=== PATIENT | male | born 1965 | race Caucasian/White ===

== ENCOUNTER 2017-01-06 10:21 | Inpatient (IN) | payer OTHER ==
[2017-01-06] MEDS ORDERED: SODIUM CHLORIDE 0.9% 250 ML IV STA (10:43)
[2017-01-06] MEDS ORDERED: ONDANSETRON 4 MG/2 ML VIAL IVP STA (10:43)
--- NOTE | 2017-01-06 10:55 | ED ---
General Adult HPI - General Chief complaint: Recheck/Abnormal Lab/Rx Stated complaint: low energy Time Seen by Provider: 01/06/17 10:31 Source: patient Mode of arrival: ambulatory Limitations: no limitations - History of Present Illness Initial comments: 51-year-old presents not feeling well for the last couple days and states his arms feel heavy note chest pain and feels some nausea. He states that he has a history of hypertension and is on clonidine patch number to, Lotrel and was placed on Dyazide since taking the Dyazide he has not felt well was discontinued couple days ago he continues to feel weak. No discomfort in his arms no shortness of breath when he walks. No history of diabetes asthma seizures or heart disease has been treated for difficult hypertension for years - Related Data Home Medications Medication Instructions Recorded Confirmed Aspirin EC [Ecotrin Low Dose] 81 mg PO HS 01/06/17 01/06/17 Citalopram Hydrobromide [CeleXA] 40 mg PO HS 01/06/17 01/06/17 EPINEPHrine [Epipen 2-Cosmo] 0.3 mg IM ONCE PRN 01/06/17 01/06/17 Multivitamins, Thera [Multivitamin 1 tab PO HS 01/06/17 01/06/17 (formulary)] Omeprazole 40 mg PO HS 01/06/17 01/06/17 amLODIPine BESYLATE/BENAZEPRIL 1 cap PO HS 01/06/17 01/06/17 [Lotrel 10-20 mg Capsule] cloNIDine 0.2 MG/24HR PATCH 1 patch TRANSDERM TU 01/06/17 01/06/17 [Catapres-TTS] tiZANidine HCL [Zanaflex] 4 mg PO Q8HR PRN 01/06/17 01/06/17 Allergies Allergy/AdvReac Type Severity Reaction Status Date / Time bee venom protein (honey bee) Allergy Anaphylaxis Verified 01/06/17 11:28 codeine Allergy Nausea & Verified 01/06/17 11:28 Vomiting Sulfa (Sulfonamide Allergy Swelling Verified 01/06/17 11:28 Antibiotics) Review of Systems ROS Statement: Those systems with pertinent positive or pertinent negative responses have been documented in the HPI. ROS Other: All systems not noted in ROS Statement are negative. Constitutional: Denies: fever, chills, weakness Eyes: Denies: eye pain, eye discharge ENT: Denies: ear pain, throat pain Respiratory: Denies: cough, dyspnea Cardiovascular: Denies: chest pain Endocrine: Reports: fatigue Gastrointestinal: Reports: nausea. Denies: abdominal pain, vomiting, diarrhea Genitourinary: Denies: urgency, dysuria, frequency Musculoskeletal: Denies: back pain Skin: Denies: rash Neurological: Denies: headache Psychiatric: Denies: anxiety, depression Hematological/Lymphatic: Denies: easy bleeding, easy bruising Past Medical History Past Medical History: Hypertension Additional Past Medical History / Comment(s): seasonal allergies History of Any Multi-Drug Resistant Organisms: None Reported Past Surgical History: Hernia Repair Past Psychological History: No Psychological Hx Reported Smoking Status: Former smoker Past Alcohol Use History: Occasional Past Drug Use History: None Reported General Exam Limitations: no limitations General appearance: alert, in no apparent distress Head exam: Present: atraumatic Eye exam: Present: PERRL, EOMI ENT exam: Present: normal oropharynx, mucous membranes moist, TM's normal bilaterally Neck exam: Present: normal inspection Respiratory exam: Present: normal lung sounds bilaterally Cardiovascular Exam: Present: regular rate, normal heart sounds. Absent: systolic murmur, diastolic murmur GI/Abdominal exam: Present: soft. Absent: tenderness, normal bowel sounds Extremities exam: Present: normal inspection Neurological exam: Present: alert, CN II-XII intact Psychiatric exam: Present: normal affect, normal mood Skin exam: Present: warm, dry Course Vital Signs 01/06/17 01/06/17 01/06/17 10:23 12:04 13:00 Temperature 97.8 F Pulse Rate 108 H 95 96 Respiratory 20 18 18 Rate Blood Pressure 132/84 123/68 123/75 O2 Sat by Pulse 98 96 97 Oximetry 01/06/17 14:00 Temperature Pulse Rate 94 Respiratory 18 Rate Blood Pressure 132/77 O2 Sat by Pulse 97 Oximetry Medical Decision Making - Medical Decision Making Elevated liver enzymes showed appears to be obstructive ultrasound shows no stones patient's feeling rather poor poorly has some edema him after discussing with the attending will admit consult gastro-as well as CT ordered, slow hydration. - Lab Data Result diagrams: 01/06/17 11:15 01/06/17 11:15 Lab Results 01/06/17 01/06/17 01/06/17 Range/Units 11:15 11:15 11:15 WBC 9.2 (3.8-10.6) k/uL RBC 5.07 (4.30-5.90) m/uL Hgb 14.9 (13.0-17.5) gm/dL Hct 43.0 (39.0-53.0) % MCV 84.8 (80.0-100.0) fL MCH 29.4 (25.0-35.0) pg MCHC 34.7 (31.0-37.0) g/dL RDW 16.3 H (11.5-15.5) % Plt Count 152 (150-450) k/uL Neutrophils % 77 % Lymphocytes % 16 % Monocytes % 5 % Eosinophils % 0 % Basophils % 0 % Neutrophils # 7.1 (1.3-7.7) k/uL Lymphocytes # 1.5 (1.0-4.8) k/uL Monocytes # 0.5 (0-1.0) k/uL Eosinophils # 0.0 (0-0.7) k/uL Basophils # 0.0 (0-0.2) k/uL Anisocytosis Slight Sodium 136 L (137-145) mmol/L Potassium 3.9 (3.5-5.1) mmol/L Chloride 100 (98-107) mmol/L Carbon Dioxide 20 L (22-30) mmol/L Anion Gap 16 mmol/L BUN 16 (9-20) mg/dL Creatinine 0.96 (0.66-1.25) mg/dL Est GFR (MDRD) Af Amer >60 (>60 ml/min/1.73 sqM) Est GFR (MDRD) Non-Af >60 (>60 ml/min/1.73 sqM) Glucose 134 H (74-99) mg/dL Calcium 8.1 L (8.4-10.2) mg/dL Total Bilirubin 3.4 H (0.2-1.3) mg/dL AST 434 H (17-59) U/L ALT 399 H (21-72) U/L Alkaline Phosphatase 253 H (38-126) U/L Total Creatine Kinase 136 (55-170) U/L CK-MB (CK-2) 2.3 (0.0-2.4) ng/mL CK-MB (CK-2) Rel Index 1.7 Troponin I 0.017 (0.000-0.034) ng/mL NT-Pro-B Natriuret Pep pg/mL Total Protein 6.7 (6.3-8.2) g/dL Albumin 3.5 (3.5-5.0) g/dL Urine Color Urine Appearance (Clear) Urine pH (5.0-8.0) Ur Specific [place] (1.001-1.035) Urine Protein (Negative) Urine Glucose (UA) (Negative) Urine Ketones (Negative) Urine Blood (Negative) Urine Nitrite (Negative) Urine Bilirubin (Negative) Urine Urobilinogen (<2.0) mg/dL Ur Leukocyte Esterase (Negative) Urine RBC (0-5) /hpf Urine WBC (0-5) /hpf Cellular Casts (0) /lpf Hyaline Casts (0-2) /lpf Urine Mucus (None) /hpf 01/06/17 01/06/17 Range/Units 11:15 11:45 WBC (3.8-10.6) k/uL RBC (4.30-5.90) m/uL Hgb (13.0-17.5) gm/dL Hct (39.0-53.0) % MCV (80.0-100.0) fL MCH (25.0-35.0) pg MCHC (31.0-37.0) g/dL RDW (11.5-15.5) % Plt Count (150-450) k/uL Neutrophils % % Lymphocytes % % Monocytes % % Eosinophils % % Basophils % % Neutrophils # (1.3-7.7) k/uL Lymphocytes # (1.0-4.8) k/uL Monocytes # (0-1.0) k/uL Eosinophils # (0-0.7) k/uL Basophils # (0-0.2) k/uL Anisocytosis Sodium (137-145) mmol/L Potassium (3.5-5.1) mmol/L Chloride (98-107) mmol/L Carbon Dioxide (22-30) mmol/L Anion Gap mmol/L BUN (9-20) mg/dL Creatinine (0.66-1.25) mg/dL Est GFR (MDRD) Af Amer (>60 ml/min/1.73 sqM) Est GFR (MDRD) Non-Af (>60 ml/min/1.73 sqM) Glucose (74-99) mg/dL Calcium (8.4-10.2) mg/dL Total Bilirubin (0.2-1.3) mg/dL AST (17-59) U/L ALT (21-72) U/L Alkaline Phosphatase (38-126) U/L Total Creatine Kinase (55-170) U/L CK-MB (CK-2) (0.0-2.4) ng/mL CK-MB (CK-2) Rel Index Troponin I (0.000-0.034) ng/mL NT-Pro-B Natriuret Pep 51 pg/mL Total Protein (6.3-8.2) g/dL Albumin (3.5-5.0) g/dL Urine Color Dark Yellow Urine Appearance Cloudy (Clear) Urine pH 5.5 (5.0-8.0) Ur Specific [place] 1.019 (1.001-1.035) Urine Protein Trace H (Negative) Urine Glucose (UA) 1+ H (Negative) Urine Ketones Negative (Negative) Urine Blood Negative (Negative) Urine Nitrite Negative (Negative) Urine Bilirubin 1+ H (Negative) Urine Urobilinogen 2.0 (<2.0) mg/dL Ur Leukocyte Esterase Negative (Negative) Urine RBC 1 (0-5) /hpf Urine WBC 8 H (0-5) /hpf Cellular Casts 10 (0) /lpf Hyaline Casts 27 H (0-2) /lpf Urine Mucus Few H (None) /hpf - EKG Data -: EKG Interpreted by Me 01/06/17 12:01 EKG 01/06/2017 1146 ventricular rate 10 5 bpm, HI interval 134 ms, QRS duration 90 ms, QT interval 324 ms sinus tachycardia possible left atrial enlargement and nonspecific ST abnormality. - Radiology Data Radiology results: report reviewed No acute processes Disposition Clinical Impression: Obstructive jaundice Disposition: ADMITTED IP TO THIS HOSP Condition: Fair Referrals: Kam Heck MD [Primary Care Provider] - 1-2 days Time of Disposition: 14:38
[2017-01-06 11:32] LABS: Anisocytosis Slight; Basophils % (A) 0 %; CHCM 34.3; Eosinophils % (A) 0 %; HDW 2.39; HGB 14.9 gm/dL (13.0-17.5); Luc # (Auto) 0.17; Luc % (Auto) 2; Lymphocytes # (A) 1.5 k/uL (1.0-4.8); Lymphocytes % (A) 16 %; MCH 29.4 pg (25.0-35.0); MCHC 34.7 g/dL (31.0-37.0); MCV 84.8 fL (80.0-100.0); Mean Platelet Volume 6.6; Monocytes # (A) 0.5 k/uL (0-1.0); Monocytes % (A) 5 %; Neutrophils # (A) 7.1 k/uL (1.3-7.7); Neutrophils % (A) 77 %; RBC 5.07 m/uL (4.30-5.90); RDW 16.3 % (11.5-15.5); WBC 9.2 k/uL (3.8-10.6); WBC (Perox) 8.97
[2017-01-06 11:43] LABS: ALT 399 U/L (21-72); AST 434 U/L (17-59); Alkaline Phosphatase 253 U/L (38-126); Anion Gap 16 mmol/L; Blood Urea Nitrogen 16 mg/dL (9-20); Calcium 8.1 mg/dL (8.4-10.2); Carbon Dioxide 20 mmol/L (22-30); Chloride 100 mmol/L (98-107); Glucose 134 mg/dL (74-99); Non-African American GFR(MDRD) >60 (>60 ml/min/1.73 sqM); Potassium 3.9 mmol/L (3.5-5.1); Sodium 136 mmol/L (137-145); Total Bilirubin 3.4 mg/dL (0.2-1.3); Total Protein 6.7 g/dL (6.3-8.2)
--- NOTE | 2017-01-06 11:46 | XR ---
EXAMINATION TYPE: XR chest 2V DATE OF EXAM: 01/06/2017 COMPARISON: NONE TECHNIQUE: PA and lateral views submitted. HISTORY: Chest discomfort FINDINGS: The lungs are clear and there is no pneumothorax, pleural effusion, or focal pneumonia. Heart mildl y prominent. Hypertrophic and degenerative change of the spine. IMPRESSION: 1. No acute process.
[2017-01-06 12:10] LABS: Creatine Kinase MB 2.3 ng/mL (0.0-2.4); Troponin I 0.017 ng/mL (0.000-0.034)
[2017-01-06 12:20] LABS: Appearance,Urine Cloudy (Clear); Bilirubin,Urine 1+ (Negative); Glucose,Urine (UA) 1+ (Negative); Ketones,Urine Negative (Negative); Leukocyte Esterase,Urine Negative (Negative); Mucus,Urine Few /hpf; Nitrite,Urine Negative (Negative); PH, Urine 5.5 (5.0-8.0); Particle Count 10655; Protein,Urine Trace (Negative); RBC,Urine 1 /hpf (0-5); Specific Gravity,Urine 1.019 (1.001-1.035); UA Billing (MACRO vs. MICRO) MICRO; WBC,Urine 8 /hpf (0-5)
--- NOTE | 2017-01-06 14:01 | US ---
EXAMINATION TYPE: US abdomen limited DATE OF EXAM: 01/06/2017 COMPARISON: NONE CLINICAL HISTORY: Pain. EC patient with low energy, elevated liver function tests/bilirubin EXAM MEASUREMENTS: Liver Length: 21.4 cm Gallbladder Wall: 0.2 cm CBD: 0.3 cm Right Kidney: 12.1 x 6.4 x 5.9 cm Pancreas: hyperechoic and limitedly seen due to overlying bowel gas Liver: enlarged and attenuated posteriorly Gallbladder: wnl Evidence for sonographic Padilla's sign: No CBD: wnl Right Kidney: wnl Liver measures 21 cm compatible with hepatomegaly IMPRESSION: 1. Liver appears enlarged and with increased echogenicity correlate for fatty infiltration. Hepatiti s or hepatocellular disease in the differential diagnosis.
[2017-01-06] MEDS ORDERED: ONDANSETRON 4 MG/2 ML VIAL IVP PRN (14:32)
[2017-01-06] MEDS ORDERED: NALOXONE 0.4 MG/ML 1 ML VIAL IV PRN (14:32)
[2017-01-06] MEDS ORDERED: RX INFO: IV CONTRAST WAS GIVEN 1 EACH MISC MISCELLANE PRN (14:34)
[2017-01-06 15:26] VITALS: BMI 34.2
[2017-01-06 15:36] LABS: Hepatitis B Surface Ag Index 0.05
[2017-01-06 15:42] LABS: Hepatitis B Core IgM Index 0.06
[2017-01-06 15:54] LABS: Hepatitis C Virus IgG Ab Negative (Negative); Hepatitis C Virus IgG Index 0.04
[2017-01-06] MEDS: IOHEXOL 350 MG/ML 25 ML BOTTLE (ORAL USE) PO PRN ×2 (16:50→18:00)
[2017-01-06] MEDS: SODIUM CHLORIDE 0.9% 1,000 ML IV SCH (18:01)
--- NOTE | 2017-01-06 18:48 | CT ---
EXAMINATION TYPE: CT abdomen pelvis w con DATE OF EXAM: 01/06/2017 COMPARISON: NONE HISTORY: Patient complains of fatigue and nausea. CT DLP: 2082.6 mGycm Automated exposure control for dose reduction was used. TECHNIQUE: Helical acquisition of images was performed from the lung bases through the pelvis. CONTRAST: Performed with Oral Contrast and with IV Contrast, patient injected with 100 mL of Omnipaque 300. FINDINGS: Lung bases are clear of infiltrate. There is no pleural effusion. There is some decreased density throughout the liver consistent with fatty infiltration. Gallbladder appears normal. Spleen and pancreas appear normal. Bile ducts are not dilated. There is no adrenal ma ss. Kidneys show satisfactory contrast opacification. There is no hydronephrosis. There is no retrope ritoneal adenopathy. There is no ascites. Bladder distends smoothly. There is no sign of a pelvic mas s. I see no bony destructive process. Appendix appears normal. IMPRESSION: THERE IS EVIDENCE OF FATTY INFILTRATION OF THE LIVER. NO SIGN OF ACUTE ABDOMEN AND PELVIS.
[2017-01-06] MEDS: amLODIPine 10 MG TAB PO SCH (20:21)
[2017-01-06] MEDS: PANTOPRAZOLE 40 MG TABLET PO SCH (20:21)
[2017-01-06] MEDS: LISINOPRIL 20 MG TAB PO SCH (20:21)
[2017-01-06] MEDS: CITALOPRAM HYDROBROMIDE 20 MG TAB PO SCH (20:21)
[2017-01-06] MEDS: ASPIRIN 81 MG CHEW PO SCH (20:21)
[2017-01-06] MEDS ORDERED: DIAZEPAM 5 MG TAB PO SCH (21:15)
[2017-01-06] MEDS: DIAZEPAM 5 MG TAB PO SCH (22:29)
[2017-01-07 07:42] LABS: Anisocytosis Slight; Basophils % (A) 0 %; CH 28.7; CHCM 32.8; Eosinophils % (A) 0 %; HCT 41.2 % (39.0-53.0); HDW 2.28; HGB 13.3 gm/dL (13.0-17.5); Luc # (Auto) 0.09; Luc % (Auto) 1; Lymphocytes # (A) 1.7 k/uL (1.0-4.8); Lymphocytes % (A) 26 %; MCH 28.2 pg (25.0-35.0); MCHC 32.2 g/dL (31.0-37.0); MCV 87.8 fL (80.0-100.0); Monocytes # (A) 0.4 k/uL (0-1.0); Monocytes % (A) 6 %; Neutrophils # (A) 4.3 k/uL (1.3-7.7); Neutrophils % (A) 66 %; RBC 4.69 m/uL (4.30-5.90); RDW 16.6 % (11.5-15.5); WBC 6.5 k/uL (3.8-10.6); WBC (Perox) 6.33
[2017-01-07 07:56] LABS: ALT 300 U/L (21-72); AST 287 U/L (17-59); Alkaline Phosphatase 199 U/L (38-126); Anion Gap 11 mmol/L; Blood Urea Nitrogen 11 mg/dL (9-20); Calcium 7.4 mg/dL (8.4-10.2); Carbon Dioxide 21 mmol/L (22-30); Chloride 103 mmol/L (98-107); Glucose 106 mg/dL (74-99); Non-African American GFR(MDRD) >60 (>60 ml/min/1.73 sqM); Potassium 3.4 mmol/L (3.5-5.1); Sodium 135 mmol/L (137-145); Total Protein 6.1 g/dL (6.3-8.2)
[2017-01-07 08:12] LABS: Magnesium 1.6 mg/dL (1.6-2.3)
[2017-01-07] MEDS: METOPROLOL TARTRATE 25 MG TAB PO SCH (08:38)
[2017-01-07] MEDS: DIAZEPAM 5 MG TAB PO SCH ×3 (08:39→22:09)
[2017-01-07] MEDS: ENOXAPARIN 40 MG/0.4 ML SYRINGE SQ SCH (08:39)
[2017-01-07] MEDS: SODIUM CHLORIDE 0.9% 1,000 ML IV SCH (10:30)
--- NOTE | 2017-01-07 18:11 | HP ---
DATE OF ADMISSION: 01/06/2017 PRESENTING COMPLAINT: Weak and tired. HISTORY OF PRESENTING COMPLAINT: This is a pleasant 51-year-old patient of Dr. Heck. Chronic stable medical conditions include GERD, hypertension and depression. Patient is here with his . Patient recently noticed that he was developing calf swelling, was given a diuretic. Started feeling tired and backed off of the diuretic after he noticed low blood pressure. Started getting more and more weak and tired. After ( ) he lost about 14 pounds in 2 weeks and decided to come in. The patient was found to have elevated liver enzymes. No abdominal pain. REVIEW OF SYSTEMS: CONSTITUTIONAL: Weak, tired. HEENT: Facial puffiness. RESPIRATORY: None. CARDIOVASCULAR: None. GASTROINTESTINAL: Some abdominal distention. GENITOURINARY: None. MUSCULOSKELETAL: None. DERMATOLOGIC: None. HEMATOLOGIC: None. LYMPHATICS: None. PSYCHIATRY: None. NEUROLOGICAL: None. PAST SURGICAL HISTORY: GERD, hypertension, seasonal allergies. PAST SURGICAL HISTORY: Hernia repair, umbilical hernia repair. SOCIAL HISTORY: Patient drinks about 4 to 5 beers a day. 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 . FAMILY HISTORY: Diabetes, hypertension. HOME MEDICATIONS: 1. Zanaflex 4 mg q.8 p.r.n. 2. Catapres patch, 0.2 every Sunday. 3. Lotrel 05/11, 1 capsule p.o. q.h.s. 4. Omeprazole 40 mg q.h.s. 5. Multivitamin 1 tablet p.o. q.h.s. 6. EpiPen two packs 0.3 mg once p.r.n. 7. Celexa 40 mg q.h.s. 8. Aspirin 81 mg p.o. q.h.s. ALLERGIES: BEE VENOM, CODEIINE, SULFA. On examination, temperature 97.8, pulse 108, respiratory rate 20, blood pressure 130/84, pulse ox 98% on room air on admission. GENERAL APPEARANCE: Well built. BMI 34.2. Sitting up. Somewhat ( ) complexion. Buggy eyes. HEENT: External appearance of nose and ears normal. Oral cavity normal. NECK: JVD not raised, thyroid not palpable. RESPIRATORY: Effort normal. LUNGS: Fair air entry. CARDIOVASCULAR: First and second sounds normal. No edema. ABDOMEN: Distended. Liver is palpable four fingers, nontender. Spleen not palpable. No guarding or rigidity.. LYMPHATIC: No lymph nodes palpable in neck or axillae. PSYCHIATRY: Alert and normal times three. Mood and affect normal. NEUROLOGICAL: Pupils equal. Cranial nerves grossly intact. The patient has fine tremors. DERMATOLOGIC: Patient has spider nevi in the upper chest. INVESTIGATIONS: White count 9.2, hemoglobin 14.9. Potassium 3.9. BUN and creatinine are normal. Bilirubin is 3.4, repeat is 5. AST is 434, ALT is 399. ProBNP is 51. Hepatitis screen is negative. CT scan of the abdomen and pelvis shows some fatty infiltration. Gallbladder is normal. The patient's abdominal ultrasound shows liver to be enlarged. ASSESSMENT: 1. Acute alcoholic hepatitis. 2. Hyperbilirubinemia. 3. Obesity, body mass index of 34.2. 4. Chronic alcohol dependence. 5. Mild fluid overload. 6. Gastroesophageal reflux disease. 7. Essential hypertension. 8. Depression, not otherwise specified. PLAN: Patient is counseled on cessation of smoking and he understands the same. Repeat patient's LFTs tomorrow to make sure they are trending downward. We will replace the patient's potassium. Dr. Rodrigues with GI was consulted. Maybe we will do a waitful watch and make sure they are coming down and have the patient followed as an outpatient depending how he fares. Case was discussed with the patient and the patient's . Questions were answered. JOSI HECK MD
[2017-01-07] MEDS ORDERED: MELATONIN 3 MG TABLET PO PRN (19:10)
[2017-01-07] MEDS ORDERED: tiZANidine 4 MG TAB PO PRN (20:49)
[2017-01-07] MEDS: ASPIRIN 81 MG CHEW PO SCH (22:09)
[2017-01-07] MEDS: CITALOPRAM HYDROBROMIDE 20 MG TAB PO SCH (22:11)
[2017-01-07] MEDS: amLODIPine 10 MG TAB PO SCH (22:11)
[2017-01-07] MEDS: LISINOPRIL 20 MG TAB PO SCH (22:11)
[2017-01-07] MEDS: PANTOPRAZOLE 40 MG TABLET PO SCH (22:11)
[2017-01-08] MEDS: SODIUM CHLORIDE 0.9% 1,000 ML IV SCH ×2 (00:13→16:26)
--- NOTE | 2017-01-08 02:39 | P.CONS ---
History of Present Illness - Reason for Consult Consult date: 01/07/17 - History of Present Illness The patient is a 51-year-old male who presented to the emergency room with the complaint of tiredness and weakness of few days' duration and some nausea. The patient was noted to have abnormal liver chemistries. Ultrasound and CT of the abdomen showed fatty infiltration of the liver. The patient was admitted to the hospital for further workup and management. We are asked to see him regarding his liver test abnormalities. His total bilirubin yesterday was 3.4 today at 5. AST 434/297, AST 399/300 alkaline phosphatase 253/199. His platelets were 152 on admission today 119. Normal MCV. The patient indicated that he had blood drawn last around 2 years ago and had been told that he had mild elevations in his liver enzymes in the past. The patient admits to drinking 4-5 beers daily and he has done that continuously for a long time. In addition, he has hypertension and has been having blood pressure control issues and his medications were recently adjusted and Dyazide was admitted after the onset of lower extremity edema. The edema has improved and he lost weight but she was feeling tired and he stopped his Dyazide few days earlier. There is no history of hepatitis or exposure to persons with hepatitis or family history of liver disease. No other symptoms were associated with chronic liver disease. He probably has added 20-25 pounds over the last couple or 3 years. Review of Systems Constitutional: Denies fever, chills or unintentional weight loss Neurologic: No headaches, double vision or other neurologic complaints Cardiopulmonary: Denied chest pain and shortness of breath or palpitations. Has history of hypertension as noted above Gastrointestinal: See present illness above. History of chronic reflux Genitourinary: Denies hematuria, dysuria or frequency Endocrine: Denied diabetes or thyroid disease Musculoskeletal: Denied joint pains or swelling Skin: No rashes Hematologic: No anemia or bleeding tendency Psychiatric: History of depression on treatment Past Medical History Past Medical History: GERD/Reflux, Hypertension Additional Past Medical History / Comment(s): seasonal allergies History of Any Multi-Drug Resistant Organisms: None Reported Past Surgical History: Hernia Repair Additional Past Surgical History / Comment(s): umbilical hernia repair 2012 Past Psychological History: No Psychological Hx Reported Smoking Status: Never smoker Past Alcohol Use History: Daily Additional Past Alcohol Use History / Comment(s): pt states about 2 beers per day, last yesterday evening - Past Family History Mother Family Medical History: Diabetes Mellitus, Hypertension Father Family Medical History: Hypertension Medications and Allergies Home Medications Medication Instructions Recorded Confirmed Type Aspirin EC [Ecotrin Low Dose] 81 mg PO HS 01/06/17 01/06/17 History Citalopram Hydrobromide [CeleXA] 40 mg PO HS 01/06/17 01/06/17 History EPINEPHrine [Epipen 2-Cosmo] 0.3 mg IM ONCE PRN 01/06/17 01/06/17 History Multivitamins, Thera [Multivitamin 1 tab PO HS 01/06/17 01/06/17 History (formulary)] Omeprazole 40 mg PO HS 01/06/17 01/06/17 History amLODIPine BESYLATE/BENAZEPRIL 1 cap PO 01/06/17 01/06/17 History [Lotrel 10-20 mg Capsule] cloNIDine 0.2 MG/24HR PATCH 1 patch TRANSDERM TU 01/06/17 01/06/17 History [Catapres-TTS] tiZANidine HCL [Zanaflex] 4 mg PO Q8HR PRN 01/06/17 01/06/17 History Allergies Allergy/AdvReac Type Severity Reaction Status Date / Time bee venom protein (honey bee) Allergy Anaphylaxis Verified 01/06/17 11:28 codeine Allergy Nausea & Verified 01/06/17 11:28 Vomiting Sulfa (Sulfonamide Allergy Swelling Verified 01/06/17 11:28 Antibiotics) Physical Exam Vitals: Vital Signs Temp Pulse Pulse Resp BP BP Pulse Ox 01/07/17 07:00 98.4 F 80 16 118/70 95 01/07/17 00:00 102 H 18 01/06/17 23:00 99.1 F 102 H 18 117/67 96 01/06/17 16:00 98.4 F 95 18 130/64 100 01/06/17 15:00 99.1 F 98 18 129/85 96 01/06/17 14:00 94 18 132/77 97 Intake and Output 01/06/17 01/07/17 01/07/17 22:59 06:59 14:59 Intake Total 240 295 240 Output Total 1 Balance 240 295 239 Intake: Intake, IV Titration 295 Amount Sodium Chloride 0.9% 1, 295 000 ml @ 60 mls/hr IV . [id number] [facility] Rx#:[id number] Oral 240 240 Output: Urine 1 Other: Voiding Method Toilet Toilet Toilet # Voids 2 4 Weight 111.13 kg General: Appears stated age, very pleasant, in no acute distress Head and neck: Normocephalic and atraumatic, conjunctivae pink and sclerae muddy , mucous membranes moist and pink. No masses in the neck or tracheal shifts Lungs: Clear to auscultation with no dullness to percussion Heart: Regular, no abnormal sounds, murmurs, gallops or friction rubs Abdomen: Obese but soft. No masses or organomegaly is appreciated or any shifting dullness or fluid wave. No tenderness, guarding or rebound. Bowel sounds present Extremities: No clubbing, cyanosis or edema Skin: No obvious spider angiomas or palmar erythema Neurologic: Alert and oriented 3. Cranial nerves grossly intact. No gross sensory or motor abnormalities Results CBC & Chem 7: 01/07/17 06:46 01/07/17 06:46 Labs: Abnormal Lab Results - Last 24 Hours (Table) 01/07/17 01/07/17 Range/Units 06:46 06:46 RDW 16.6 H (11.5-15.5) % Plt Count 119 L (150-450) k/uL Sodium 135 L (137-145) mmol/L Potassium 3.4 L (3.5-5.1) mmol/L Carbon Dioxide 21 L (22-30) mmol/L Glucose 106 H (74-99) mg/dL Calcium 7.4 L (8.4-10.2) mg/dL Total Bilirubin 5.0 H (0.2-1.3) mg/dL AST 287 H (17-59) U/L ALT 300 H (21-72) U/L Alkaline Phosphatase 199 H (38-126) U/L Total Protein 6.1 L (6.3-8.2) g/dL Albumin 3.0 L (3.5-5.0) g/dL Assessment and Plan Plan: The abnormal liver enzymes and total bilirubin in this patient could be a manifestation of acute hepatitis superimposed on chronic liver disease. His alcohol consumption has been excessive for many years and he is obese and the CT and ultrasound showing evidence of fatty infiltration of the liver with no evidence of extra biliary tree obstruction. An acute alcoholic hepatitis superimposed on chronic fatty liver, whether alcohol related or nonalcoholic fatty liver disease, is likely. The effect of medication should be kept in mind and the patient has already stopped Dyazide and his other medications have not been changed for some time. Despite the absence of family history of liver disease, other coexisting conditions such as hemochromatosis should be kept in mind. The patient is not manifesting other evidence of liver failure. I agree with your current management. Will observe closely in the hospital while monitoring for alcohol withdrawal. Will repeat and follow liver profile and clinical status closely. Consideration can be given for a liver biopsy in the short-term to bring some clarity as to the various issues at play, as noted above, and whether he already has evidence of scarring. I will discuss with you and follow do with interest.
[2017-01-08] MEDS: METOPROLOL TARTRATE 25 MG TAB PO SCH (08:58)
[2017-01-08] MEDS: ENOXAPARIN 40 MG/0.4 ML SYRINGE SQ SCH (08:58)
[2017-01-08] MEDS: DIAZEPAM 5 MG TAB PO SCH ×3 (08:58→20:47)
[2017-01-08 10:29] LABS: Anisocytosis Slight; Basophils % (A) 0 %; CH 28.7; CHCM 31.8; Eosinophils % (A) 1 %; HCT 47.3 % (39.0-53.0); HDW 2.36; HGB 15.1 gm/dL (13.0-17.5); Luc # (Auto) 0.09; Luc % (Auto) 2; Lymphocytes # (A) 1.2 k/uL (1.0-4.8); Lymphocytes % (A) 20 %; MCHC 31.9 g/dL (31.0-37.0); MCV 90.7 fL (80.0-100.0); Mean Platelet Volume 7.2; Monocytes # (A) 0.3 k/uL (0-1.0); Monocytes % (A) 6 %; Neutrophils # (A) 4.2 k/uL (1.3-7.7); Neutrophils % (A) 72 %; RBC 5.21 m/uL (4.30-5.90); RDW 16.6 % (11.5-15.5); WBC 5.9 k/uL (3.8-10.6); WBC (Perox) 6.22
[2017-01-08 10:37] LABS: ALT 298 U/L (21-72); AST 257 U/L (17-59); Alkaline Phosphatase 239 U/L (38-126); Anion Gap 12 mmol/L; Blood Urea Nitrogen 8 mg/dL (9-20); Calcium 8.3 mg/dL (8.4-10.2); Carbon Dioxide 23 mmol/L (22-30); Chloride 101 mmol/L (98-107); Glucose 106 mg/dL (74-99); Non-African American GFR(MDRD) >60 (>60 ml/min/1.73 sqM); Potassium 3.6 mmol/L (3.5-5.1); Sodium 136 mmol/L (137-145); Total Bilirubin 9.5 mg/dL (0.2-1.3); Total Protein 7.7 g/dL (6.3-8.2)
[2017-01-08] MEDS: CITALOPRAM HYDROBROMIDE 20 MG TAB PO SCH (20:47)
[2017-01-08] MEDS: LISINOPRIL 20 MG TAB PO SCH (20:47)
[2017-01-08] MEDS: PANTOPRAZOLE 40 MG TABLET PO SCH (20:48)
[2017-01-08] MEDS: ASPIRIN 81 MG CHEW PO SCH (20:48)
[2017-01-08] MEDS: amLODIPine 10 MG TAB PO SCH (20:48)
--- NOTE | 2017-01-08 21:22 | P.PN ---
Progress Note - Text DATE OF SERVICE: 01/08/2017 PRESENTING COMPLAINT: Weak and tired INTERVAL HISTORY: This patient presented with acute alcoholic hepatitis. Patient was sitting at the edge of the bed, eating his lunch, appears comfortable, able walk to and from the bathroom with no assistance. Appears jaundiced. Has edema to lower extremities, added aldactone. , [id number] at the bedside. Patient and family had many questions regarding patient's condition. Questions were answered or referred to GI. REVIEW OF SYSTEMS: Done for constitutional ,cardiovascular, GI, pulmonary with relevant findings as above. CURRENT MEDICATIONS Valium, 5 mg by mouth 3 times a day, Lovenox, Zestril, melatonin, Lopressor 25 mg by mouth daily, Protonix. PHYSICAL EXAM VITAL SIGNS: Temperature 98.2, pulse 86, respiratory rate 16, blood pressure 126/81, oxygen saturation 97% on room air GENERAL APPEARANCE: Sitting on the bed, not in distress. EYES: Pupils equal. icteric conjunctiva. NECK: JVD not raised. Mass not palpable. RESPIRATORY: Respiratory effort normal. Lungs clear to auscultation. CARDIOVASCULAR: First and second sounds normal.Mild edema. ABDOMEN: Soft. Liver and spleen not palpable. No tenderness. No mass palpable. PSYCHIATRY: Alert and oriented x3. Mood and affect normal. INVESTIGATIONS: Platelet count 106, sodium 136, total bilirubin 9.5, AST 257 ALTs to 98 alkaline phosphatase 239. ASSESSMENT: 1. Acute alcoholic hepatitis. 2. Thrombocytopenia, likely due to alcohol use. 2. Hyperbilirubinemia. 3 Obesity body mass index of 34.2. 4. Chronic alcohol dependence. 5. Mild fluid overload. 6. Gastric esophageal reflux disease. 7. Essential hypertension. 8. Depression not otherwise specified. PLAN: Bilirubin elevated from previous days values will continue to Monitor LFTs daily , Aldactone added. Patient and family had many questions regarding patient's condition, diet, post hospital care. Discussion had an questions answered to the patient's and family's satisfaction. Discharge planning for the next 1-2 days. 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 Pena
[2017-01-09 08:06] VITALS: BP 138/85; PULSE 91; RESP 20; TEMP 97.9
[2017-01-09 08:06] LABS: Anisocytosis Slight; Basophils % (A) 0 %; CH 29.2; CHCM 32.7; Eosinophils # (A) 0.1 k/uL (0-0.7); Eosinophils % (A) 1 %; HCT 45.6 % (39.0-53.0); HDW 2.59; HGB 14.9 gm/dL (13.0-17.5); Luc # (Auto) 0.16; Luc % (Auto) 3; Lymphocytes # (A) 1.7 k/uL (1.0-4.8); Lymphocytes % (A) 27 %; MCH 29.3 pg (25.0-35.0); MCHC 32.6 g/dL (31.0-37.0); MCV 89.9 fL (80.0-100.0); Mean Platelet Volume 7.8; Monocytes # (A) 0.3 k/uL (0-1.0); Monocytes % (A) 5 %; Neutrophils # (A) 3.9 k/uL (1.3-7.7); Neutrophils % (A) 65 %; RBC 5.06 m/uL (4.30-5.90); RDW 16.8 % (11.5-15.5); WBC 6.1 k/uL (3.8-10.6); WBC (Perox) 6.05
[2017-01-09] MEDS: ENOXAPARIN 40 MG/0.4 ML SYRINGE SQ SCH (08:17)
[2017-01-09] MEDS: METOPROLOL TARTRATE 25 MG TAB PO SCH (08:20)
[2017-01-09] MEDS: DIAZEPAM 5 MG TAB PO SCH (08:20)
--- NOTE | 2017-01-09 08:20 | P.PN ---
Subjective Principal diagnosis: Alcohol hepatitis -year-old male reevaluated today in regards to elevated liver enzymes. Total bilirubin yesterday 9.5 up from 5.0 day prior. Feels well. Denies abdominal pain. Tolerating regular diet. Afebrile. Repeat morning chemistries pending. Objective - Vital Signs Vital signs: Vital Signs Temp 97.9 F 01/09/17 07:00 Pulse 91 01/09/17 07:00 Resp 20 01/09/17 07:00 BP 138/85 01/09/17 07:00 Pulse Ox 98 01/09/17 07:00 Intake & Output 01/08/17 01/09/17 01/09/17 18:59 06:59 18:59 Intake Total 200 1180 Output Total 1 Balance 199 1180 Weight 111.13 kg Intake: Oral 200 1180 Output: Urine 1 Other: Voiding Method Toilet Toilet # Voids 2 2 - Exam General appearance: The patient is alert, oriented, in no acute distress. Visibly jaundice. HET: Head is normocephalic and atraumatic. Pupils are equal and reactive. Sclerae icterus. Oropharynx is clear without lesions. Neck: Supple without lymphadenopathy. Trachea midline. Heart: S1 S2. Regular rate and rhythm. Lungs: No crackles or wheezes are heard. Abdomen: Soft, nontender, mildly bloated with bowel sounds. No peritoneal signs. No palpable organomegaly or masses. Extremities: Resting tremors; mild. Normal skin color and turgor. No cyanosis , rash, ulceration, clubbing, or edema. Radial and pedal pulses are 2/4 bilaterally. Neurological: No focal deficits. Strength and sensation are grossly intact. - Labs CBC & Chem 7: 01/09/17 07:08 01/08/17 10:08 Labs: Abnormal Lab Results - Last 24 Hours (Table) 01/08/17 01/08/17 01/09/17 Range/Units 10:08 10:08 07:08 RDW 16.6 H 16.8 H (11.5-15.5) % Plt Count 106 L 105 L (150-450) k/uL Sodium 136 L (137-145) mmol/L BUN 8 L (9-20) mg/dL Glucose 106 H (74-99) mg/dL Calcium 8.3 L (8.4-10.2) mg/dL Total Bilirubin 9.5 H (0.2-1.3) mg/dL AST 257 H (17-59) U/L ALT 298 H (21-72) U/L Alkaline Phosphatase 239 H (38-126) U/L Assessment and Plan (1) Hepatitis Narrative/Plan: Acute hepatitis suspect alcohol component with possible superimposed chronic liver disease Status: Acute Plan: 1. PT/INR, ammonia level, CMP. Will review; if stable plan for discharge today and follow-up in office within a week with repeat blood work in 3-5 days. Alcohol abstinence strongly advised. Assessment and plan of care discussed with Dr. Rodrigues
[2017-01-09 08:33] LABS: ALT 224 U/L (21-72); AST 191 U/L (17-59); Alkaline Phosphatase 247 U/L (38-126); Anion Gap 13 mmol/L; Blood Urea Nitrogen 9 mg/dL (9-20); Calcium 8.4 mg/dL (8.4-10.2); Carbon Dioxide 24 mmol/L (22-30); Chloride 105 mmol/L (98-107); Glucose 115 mg/dL (74-99); Non-African American GFR(MDRD) >60 (>60 ml/min/1.73 sqM); Sodium 142 mmol/L (137-145); Total Bilirubin 7.3 mg/dL (0.2-1.3); Total Protein 7.4 g/dL (6.3-8.2)
[2017-01-09 08:51] LABS: INR 1.2 (<1.1)
[2017-01-09] MEDS ORDERED: SPIRONOLACTONE 25 MG TAB PO SCH (09:00)
[2017-01-09] MEDS ORDERED: cloNIDine 0.2 MG/24HR PATCH 1 PATCH PATCH TRANSDERM SCH (09:00)
--- NOTE | 2017-01-09 10:35 | PN ---
DATE OF SERVICE: 01/08/2017 ATTENDING NOTE: This patient was seen and examined by me on 01/08/2017. I reviewed the note of my nurse practitioner, Ms. Ho. Discussed, reviewed additional findings as below. Patient admitted with acute alcoholic hepatitis. Having some swelling in the lower extremity. He has been getting IV fluids. Somewhat tired. in the room. On examination, blood pressure 126/81. Icterus is present. Edema is present. ABDOMEN: Distended, soft. INVESTIGATIONS: AST 257, ALT 298, total bilirubin 9.5. ASSESSMENT: 1. Acute alcoholic hepatitis with some improvement in LFTs. 2. Hyperbilirubinemia, worsening. 3. Acute fluid overload from getting IV fluids and renal dysfunction. PLAN: IV fluids will be discontinued. Will add Aldactone. Repeat labs in the morning. Care was discussed in detail with the patient and the . Will follow.
[2017-01-09] MEDS: SODIUM CHLORIDE 0.9% 1,000 ML IV SCH (11:11)
--- NOTE | 2017-01-09 20:01 | P.DS ---
Providers Date of admission: 01/06/17 14:32 Expected date of discharge: 01/09/17 Attending physician: Andres Pena Consults: 01/06/17 14:33 Consult Physician Routine Consulting Provider: Moiz Rodrigues Consult Reason/Comments: Elevated Liver Enzymes Do you want consulting provider notified?: Yes Primary care physician: [facility] Course: FINAL DIAGNOSES: Acute alcoholic hepatitis. Thrombocytopenia, likely due to alcohol use. Hyperbilirubinemia. Obesity body mass index of 34.2. Chronic alcohol dependence. Mild fluid overload. Gastroesophageal reflux disease. Essential hypertension. Depression not otherwise specified. HOSPTIAL COURSE: This a 51-year-old gentleman who was admitted with acute alcoholic hepatitis secondary to alcohol use. IV fluids initiated, lab work drawn, nothing by mouth. Total bilirubin on day of admission was 5.0, subsequently went up to 9.5 , and patient was kept an extra day to keep a close eye on these values. Today bilirubin 7.3. Overall liver function tests are down trending or stayed the same. There was some fluid overload noted to patient's lower extremities, Aldactone was added CANDIS hose ordered. Tolerating his diet, ambulatory in the halls, moved his bowels. GI cleared the patient for discharge and is to follow- up with lab work in 3-[address] see Dr[address] Rodrigues in a week. PHYSICAL EXAM: CARDIOVASCULAR: First and second sounds noted, mild edema present, CANDIS hose in place. RESPIRATORY: Respiratory effort normal, lungs diminished bilaterally to auscultation GI: No tenderness noted, mild bloating , liver and spleen not palpable NEUROLOGIC: Resting tremor noted Patient was seen and examined by nurse practitioner Sherri Ho in all elements of the case discussed with attending Dr. Pena DISOPSITION: Pertinent Studies: ABDOMINAL ULTRASOUND: Liver appears enlarged with an increased echogenicity correlate for fatty infiltrate. Hepatitis or hepatocellular disease in the differential diagnosis. Patient Condition at Discharge: Stable Plan - Discharge Summary New Discharge Prescriptions: New Diazepam [Valium] 5 mg PO DIRECTED #6 tab Spironolactone [Aldactone] 25 mg PO DAILY #30 tab Continue tiZANidine HCL [Zanaflex] 4 mg PO Q8HR PRN PRN Reason: Muscle Spasm Multivitamins, Thera [Multivitamin (formulary)] 1 tab PO HS Aspirin EC [Ecotrin Low Dose] 81 mg PO HS cloNIDine 0.2 MG/24HR PATCH [Catapres-TTS] 1 patch TRANSDERM amLODIPine BESYLATE/BENAZEPRIL [Lotrel 10-20 mg Capsule] 1 cap PO HS Omeprazole 40 mg PO HS EPINEPHrine [Epipen 2-Cosmo] 0.3 mg IM ONCE PRN PRN Reason: Anaphylaxis Citalopram Hydrobromide [CeleXA] 40 mg PO HS Discharge Medication List Aspirin EC [Ecotrin Low Dose] 81 mg PO HS 01/06/17 [History] Citalopram Hydrobromide [CeleXA] 40 mg PO HS 01/06/17 [History] EPINEPHrine [Epipen 2-Cosmo] 0.3 mg IM ONCE PRN 01/06/17 [History] Multivitamins, Thera [Multivitamin (formulary)] 1 tab PO HS 01/06/17 [History] Omeprazole 40 mg PO HS 01/06/17 [History] amLODIPine BESYLATE/BENAZEPRIL [Lotrel 10-20 mg Capsule] 1 cap PO HS 01/06/17 [ History] cloNIDine 0.2 MG/24HR PATCH [Catapres-TTS] 1 patch TRANSDERM 01/06/17 [ History] tiZANidine HCL [Zanaflex] 4 mg PO Q8HR PRN 01/06/17 [History] Diazepam [Valium] 5 mg PO DIRECTED #6 tab 01/09/17 [Rx] Spironolactone [Aldactone] 25 mg PO DAILY #30 tab 01/09/17 [Rx] Follow up Appointment(s)/Referral(s): Moiz Rodrigues MD [STAFF PHYSICIAN] - 02/01/17 4:45 pm Kam Heck MD [Primary Care Provider] - 01/11/17 2:00 pm Patient Instructions/Handouts: Spironolactone (By mouth), Diazepam (By mouth) Activity/Diet/Wound Care/Special Instructions: NO alcohol Discharge Disposition: HOME SELF-CARE
--- NOTE | 2017-01-12 11:51 | DS ---
DATE OF ADMISSION: 01/06/2017 DATE OF DISCHARGE: 01/09/2017 ATTENDING NOTE: This patient seen and examined by me on 01/09/2017. Reviewed the discharge summary of my nurse practitioner, Kenziejavy. Discussed additional findings below. This is a patient admitted with acute alcoholic hepatitis, drinking for quite some time. Patient's AST and ALT were 434/399 on admission, did come down to 191/224 at the time of discharge. Patient's total bilirubin was 3.4, did go up to 9.5, started to come down. The patient's hepatitis A, B, and C screen was negative. Platelets are running low, felt to be from alcohol. Patient is counseled extensively about cessation of alcohol. Also, patient getting fluid overloaded from liver disease and Aldactone is being added. Told to check daily weights and keep some fluid restricted. Patient's ultrasound of the abdomen showed the liver to be enlarged and CT scan of the abdomen and pelvis are again suggestive of fatty infiltration, enlarged liver. CONSULTATIONS: Dr. Rodrigues from GI. DISCHARGE PLANNING: More than 35 minutes. DISCHARGE MEDICATIONS: 1. Aspirin 81 mg q.h.s. 2. Celexa 40 mg p.o. q.h.s. 3. EpiPen p.r.n. 4. Multivitamin 1 tablet p.o. q.h.s. 5. Omeprazole 40 mg at bedtime. 6. Lotrel 05/11, 1 capsule p.o. q.h.s. 7. Catapres patch Sunday. 8. Zanaflex 4 mg q.8 p.r.n. 9. Valium taper. 10. Aldactone 25 mg a day. Follow up with Dr. Rodrigues on 02/01/2017. Follow up with Dr. Kam Heck on 01/11/2017. FINAL DIAGNOSES: 1. Acute fluid overload due to chronic liver disease. 2. Hyperbilirubinemia due to chronic liver disease due to alcohol.
--- NOTE | 2017-02-05 13:55 | DS ---
ADDENDUM: DATE OF ADMISSION: 01/06/2017 DATE OF DISCHARGE: 01/10/2017 On examination, PSYCH: Alert and oriented x3. LUNGS: Slightly decreased breath sounds. ABDOMEN: Soft, nontender. MTDD
== END 2017-01-09 15:20 | disposition home or self-care (01) | DRG 434 ==
LOC: EC 10:21 → 5ONC 14:32
PROVIDERS: ADMIT Hospitalist; ATTEND Hospitalist
DX: K70.10 Alcoholic hepatitis without ascites (principal); D69.59 Other secondary thrombocytopenia; E87.70 Fluid overload, unspecified; K76.0 Fatty (change of) liver, not elsewhere classified; I10 Essential (primary) hypertension; E66.9 Obesity, unspecified; F10.20 Alcohol dependence, uncomplicated; F17.200 Nicotine dependence, unspecified, uncomplicated; F32.9 Major depressive disorder, single episode, unspecified; K21.9 Gastro-esophageal reflux disease without esophagitis; N28.9 Disorder of kidney and ureter, unspecified; K76.89 Other specified diseases of liver; Z68.34 Body mass index [BMI] 34.0-34.9, adult; Z79.82 Long term (current) use of aspirin; Z79.899 Other long term (current) drug therapy; Z88.5 Allergy status to narcotic agent; Z88.2 Allergy status to sulfonamides; Z82.49 Family history of ischemic heart disease and other diseases of the circulatory system
CPT/HCPCS: 36415; 71020; 74177; 76705; 80053; 80074; 81001; 82140; 82550; 82553; 83735; 83880; 84484; 85025; 85610; 93005; 96374; 99285

== ENCOUNTER 2017-09-20 10:36 | Day surgery (SDC) | payer OTHER ==
[2017-09-19 08:17] VITALS: BMI 25.7
[~2017-09-20 10:36] MED LIST: LACTATED RINGERS 1,000 ML IV SCH
[2017-09-20 11:56] VITALS: RESP 16; TEMP 98.4
[2017-09-20] MEDS ORDERED: LIDOCAINE 1% 20 ML VIAL (10MG/ML) FOR IV START INTRADERMA ONE (12:07)
[2017-09-20] MEDS ORDERED: ONDANSETRON 4 MG/2 ML VIAL IVP ONE (12:27)
[2017-09-20] MEDS ORDERED: PROPOFOL 10 MG/ML 20 ML VIAL IV ONE (12:30)
[2017-09-20] MEDS ORDERED: LIDOCAINE 1% INJ 10MG/ML (20 ML MDV) ONE (12:30)
--- NOTE | 2017-09-20 13:06 | P.PCN ---
Date of Procedure: 09/20/17 Procedure(s) Performed: Procedure: Total colonoscopy. Preoperative diagnosis: Screening for neoplasia. Postoperative diagnosis: Exam within normal limits. Preparation: HalfLytely prep. Sedation: Was provided by anesthesia. Brief clinical history: The patient is a 52-year-old male who is referred for this evaluation for screening for neoplasia age being his risk factor. There is no family history of colon cancer. The patient has no abdominal complaints, bleeding or anemia. This would be his first colonoscopy. Procedure: With the patient on his left lateral decubitus position and after informed consent and adequate sedation, the perianal area was inspected and it did not show any fissures or fistulas. There were no masses felt on digital rectal examination. The Olympus CFQ 160L video colonoscope was then inserted in the rectum in the usual fashion and advanced to the cecum. The mucosa appeared healthy. No polyps or tumors were seen or any obvious diverticular disease or other pathology. I retroflexed the endoscope in the rectum before the endoscope was withdrawn. The patient tolerated the procedure well. Plan: The patient was reassured. He will follow-up with you as planned and I recommended repeat exam in 10 years.
[2017-09-20 13:14] VITALS: BP 135/82; PULSE 67
== END 2017-09-20 13:49 | disposition home or self-care (01) ==
LOC: ORWHC2ENDO 10:36
DX: Z12.11 Encounter for screening for malignant neoplasm of colon (principal); I10 Essential (primary) hypertension; K21.9 Gastro-esophageal reflux disease without esophagitis; Z88.5 Allergy status to narcotic agent; Z88.2 Allergy status to sulfonamides; Z91.030 Bee allergy status; Z79.82 Long term (current) use of aspirin; Z79.899 Other long term (current) drug therapy
CPT/HCPCS: J2405; J2001; J2704; G0121; 45378

== ENCOUNTER → 2018-02-19 | Outpatient (CLI) | payer OTHER ==
--- NOTE | 2018-02-19 12:06 | US ---
EXAMINATION TYPE: US liver DATE OF EXAM: 02/19/2018 COMPARISON: US 01/06/2017 CLINICAL HISTORY: 52-year-old male F10.21 History of alcoholism independence in. Pt states history of ETOH abuse, recent relapse x 1 month TECHNIQUE: Multiple sonographic images of the right upper quadrant are obtained. FINDINGS: EXAM MEASUREMENTS: Liver Length: 19.3 cm Gallbladder Wall: 0.2 cm CBD: 0.2 cm Right Kidney: 11.1 x 5.0 x 4.9 cm Pancreas: Obscured by bowel gas Liver: Enlarged, slightly heterogeneous, however marked improvement in penetration when compared to previous Gallbladder: wnl Evidence for sonographic Padilla's sign: No CBD: wnl Right Kidney: No hydronephrosis IMPRESSION: 1. Some improvement in the hepatomegaly (19.3 cm now versus 21.4 cm, previously). 2. Significant improvement in the previous fatty infiltration of the liver.
== END | disposition home or self-care (01) ==
LOC: RADUSWWP 08:05
DX: K76.0 Fatty (change of) liver, not elsewhere classified (principal); F10.21 Alcohol dependence, in remission
CPT/HCPCS: 76705

== ENCOUNTER 2018-02-21 11:25 | Emergency (ER) | payer OTHER ==
[2018-02-21 11:29] VITALS: RESP 18
[2018-02-21] MEDS ORDERED: SODIUM CHLORIDE 0.9% 500 ML IV ONE (11:34)
[2018-02-21] MEDS ORDERED: methylPREDNISolone SOD SUCCI 125 MG/2 ML VIAL IV STA (11:34)
[2018-02-21] MEDS ORDERED: diphenhydrAMINE 50 MG/ML 1 ML VIAL IVP STA (11:34)
[2018-02-21] MEDS ORDERED: FAMOTIDINE 20 MG/2 ML VIAL IV STA (11:34)
--- NOTE | 2018-02-21 11:42 | ED ---
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 Patient took a Benadryl and gave him self and epinephrine. Patient came to the hospital recently. Patient denies any throat swelling lip tingling lip swelling or difficulty breathing. Patient states he does have a rash is itchy all over. Patient states this does not feel as bad as the last time. Patient denies any chest pain or discomfort patient denies any palpitations. Patient denies abdominal pain patient denies nausea vomiting diarrhea. Patient denies any lightheadedness dizziness or near syncopal episode. Patient states he has itching around his eyes he feels as though his eyes a little swollen his itching of his hands chest and back. - Related Data Home Medications Medication Instructions Recorded Confirmed Aspirin EC [Ecotrin Low Dose] 81 mg PO HS 01/06/17 02/21/18 Multivitamins, Thera [Multivitamin 1 tab PO HS 01/06/17 02/21/18 (formulary)] Omeprazole 40 mg PO HS 01/06/17 02/21/18 Atorvastatin [Lipitor] 20 mg PO HS 09/19/17 02/21/18 Cholecalciferol [Vitamin D3] 5,000 unit PO HS 09/19/17 02/21/18 Diazepam [Valium] 5 mg PO BID PRN 09/19/17 02/21/18 Turmeric Root Extract [Turmeric] 500 mg PO DAILY 09/19/17 02/21/18 amLODIPine BESYLATE/BENAZEPRIL 1 cap PO BID 09/19/17 02/21/18 [amLODIPine BESYLATE/BENAZEPRIL 5-20 mg] EPINEPHrine [Epipen 2-Cosmo] 0.3 mg IM ONCE PRN 02/21/18 02/21/18 Melatonin 3 mg PO HS 02/21/18 02/21/18 PARoxetine HCL [PARoxetine HCL ER] 25 mg PO DAILY 02/21/18 02/21/18 diphenhydrAMINE [Benadryl] 25 mg PO HS PRN 02/21/18 02/21/18 tiZANidine HCL 4 mg PO Q8H 02/21/18 02/21/18 Previous Rx's Medication Instructions Recorded EPINEPHrine (Auto Inject) [Epipen] 0.3 mg IM ONCE PRN #2 syringe 02/21/18 predniSONE 40 mg PO DAILY #8 tab 02/21/18 Allergies Allergy/AdvReac Type Severity Reaction Status Date / Time bee venom protein (honey bee) Allergy Anaphylaxis Verified 02/21/18 11:48 Sulfa (Sulfonamide Allergy Swelling Verified 02/21/18 11:48 Antibiotics) codeine AdvReac Nausea & Verified 02/21/18 11:48 Vomiting Review of Systems ROS Statement: Those systems with pertinent positive or pertinent negative responses have been documented in the HPI. ROS Other: All systems not noted in ROS Statement are negative. Past Medical History Past Medical History: GERD/Reflux, Hypertension Additional Past Medical History / Comment(s): seasonal allergies History of Any Multi-Drug Resistant Organisms: None Reported Past Surgical History: Hernia Repair Additional Past Surgical History / Comment(s): umbilical hernia repair 2013 Past Anesthesia/Blood Transfusion Reactions: Postoperative Nausea & Vomiting ( PONV) Past Psychological History: No Psychological Hx Reported Smoking Status: Never smoker Past Alcohol Use History: Occasional Past Drug Use History: None Reported - Past Family History Mother Family Medical History: Cancer, Diabetes Mellitus, Hypertension Additional Family Medical History / Comment(s): nonHodgkins lymphoma Father Family Medical History: Hypertension General Exam - General Exam Comments Initial Comments: GENERAL: Patient is well-developed and well-nourished. Patient is nontoxic and well- hydrated and is in mild distress. ENT: Neck is soft and supple. No significant lymphadenopathy is noted. Oropharynx is clear. Moist mucous membranes. Neck has full range of motion without eliciting any pain. EYES: The sclera were anicteric and conjunctiva were pink and moist. Extraocular movements were intact and pupils were equal round and reactive to light. Eyelids were unremarkable. PULMONARY: Unlabored respirations. Good breath sounds bilaterally. No audible rales rhonchi or wheezing was noted. CARDIOVASCULAR: There is a regular rate and rhythm without any murmurs gallops or rubs. SKIN: Patient has some swelling underneath both eyes and some redness. Patient has some redness to his arms chest abdomen back.. NEUROLOGIC: Patient is alert and oriented x3. Cranial nerves II through XII are grossly intact. Motor and sensory are also intact. Normal speech, volume and content. Symmetrical smile. MUSCULOSKELETAL: Normal extremities with adequate strength and full range of motion. LYMPHATICS: No significant lymphadenopathy is noted PSYCHIATRIC: Normal psychiatric evaluation. Limitations: no limitations Course Vital Signs 02/21/18 02/21/18 11:27 12:16 Temperature 99.1 F Pulse Rate 124 H 84 Respiratory 18 18 Rate Blood Pressure 120/66 104/61 O2 Sat by Pulse 97 98 Oximetry Medical Decision Making - Medical Decision Making EKG shows normal sinus rhythm at 77 bpm IN interval 146 dresses 82 QT interval 38 QTC is 439. Patient's EKG shows no ST segment elevation or depression or T wave abnormalities are noted. One pack and reevaluate the patient he stated the itching gone away if the swelling is gone away and he has had no throat swelling or difficulty breathing. Critical Care Time Critical Care Time: Yes Total Critical Care Time: 35 Disposition Clinical Impression: Anaphylaxis Disposition: HOME SELF-CARE Instructions: Anaphylaxis (ED) Prescriptions: EPINEPHrine (Auto Inject) [Epipen] 0.3 mg IM ONCE PRN #2 syringe PRN Reason: Anaphylaxis predniSONE 40 mg PO DAILY #8 tab Is patient prescribed a controlled substance at d/c from ED?: No Referrals: Kam Heck MD [Primary Care Provider] - 1-2 days Time of Disposition: 12:57
[2018-02-21 13:29] VITALS: BP 114/68; PULSE 83; TEMP 97.9
== END 2018-02-21 13:34 | disposition home or self-care (01) ==
LOC: EC 11:25
DX: T63.441A Toxic effect of venom of bees, accidental (unintentional), initial encounter (principal); T78.2XXA Anaphylactic shock, unspecified, initial encounter; I10 Essential (primary) hypertension; K21.9 Gastro-esophageal reflux disease without esophagitis; Z98.890 Other specified postprocedural states; Z79.82 Long term (current) use of aspirin; Z79.899 Other long term (current) drug therapy; Z88.2 Allergy status to sulfonamides; Z88.5 Allergy status to narcotic agent; Z91.030 Bee allergy status
CPT/HCPCS: 99284; 96374; 96375 ×2; 96361 ×2; J1200; J2930

== ENCOUNTER 2018-03-25 12:03 | Emergency (ER) | payer OTHER ==
[2018-03-25 12:40] VITALS: RESP 18; TEMP 98.6
[2018-03-25] MEDS ORDERED: SODIUM CHLORIDE 0.9% 1,000 ML IV STA (13:00)
[2018-03-25] MEDS ORDERED: THIAMINE 100 MG/ML 2 ML VIAL IM STA (13:03)
[2018-03-25] MEDS ORDERED: LORazepam 2 MG/ML INJ IV PRN ×3 (13:03)
[2018-03-25] MEDS ORDERED: LORazepam 2 MG/ML INJ IV STA (13:03)
[2018-03-25] MEDS ORDERED: ONDANSETRON 4 MG/2 ML VIAL IVP STA (13:21)
[2018-03-25 13:23] LABS: Basophils % (A) 0 %; Eosinophils # (A) 0.1 k/uL (0-0.7); Eosinophils % (A) 1 %; HCT 47.5 % (39.0-53.0); HGB 15.9 gm/dL (13.0-17.5); Lymphocytes # (A) 1.5 k/uL (1.0-4.8); Lymphocytes % (A) 11 %; MCH 30.7 pg (25.0-35.0); MCHC 33.6 g/dL (31.0-37.0); MCV 91.4 fL (80.0-100.0); Mean Platelet Volume 6.7; Monocytes # (A) 0.5 k/uL (0-1.0); Monocytes % (A) 4 %; Neutrophils # (A) 10.7 k/uL (1.3-7.7); Neutrophils % (A) 83 %; Platelet Count 233 k/uL (150-450); RBC 5.19 m/uL (4.30-5.90); RDW 12.9 % (11.5-15.5); WBC 12.9 k/uL (3.8-10.6)
--- NOTE | 2018-03-25 13:23 | ED ---
General Adult HPI - General Chief complaint: Recheck/Abnormal Lab/Rx Stated complaint: Withdrawls Time Seen by Provider: 03/25/18 12:42 Source: patient, RN notes reviewed Mode of arrival: ambulatory Limitations: no limitations - History of Present Illness Initial comments: Patient's a 52-year-old male significant past medical history for hypertension, alcoholism, presenting to the emergency room today with a chief complaint of alcohol withdrawal. Patient states that his last drink was at midnight. He states he's had some shaking and nausea vomiting. Patient denies any other complaints or symptoms currently. Patient denies any recent fever, chills, shortness of breath, chest pain, back pain, numbness or tingling, headaches or visual changes, or any other complaints. - Related Data Home Medications Medication Instructions Recorded Confirmed Aspirin EC [Ecotrin Low Dose] 81 mg PO HS 01/06/17 02/21/18 Multivitamins, Thera [Multivitamin 1 tab PO HS 01/06/17 02/21/18 (formulary)] Omeprazole 40 mg PO HS 01/06/17 02/21/18 Atorvastatin [Lipitor] 20 mg PO HS 09/19/17 02/21/18 Cholecalciferol [Vitamin D3] 5,000 unit PO HS 09/19/17 02/21/18 Diazepam [Valium] 5 mg PO BID PRN 09/19/17 02/21/18 Turmeric Root Extract [Turmeric] 500 mg PO DAILY 09/19/17 02/21/18 amLODIPine BESYLATE/BENAZEPRIL 1 cap PO BID 09/19/17 02/21/18 [amLODIPine BESYLATE/BENAZEPRIL 5-20 mg] EPINEPHrine [Epipen 2-Cosmo] 0.3 mg IM ONCE PRN 02/21/18 02/21/18 Melatonin 3 mg PO HS 02/21/18 02/21/18 PARoxetine HCL [PARoxetine HCL ER] 25 mg PO DAILY 02/21/18 02/21/18 diphenhydrAMINE [Benadryl] 25 mg PO HS PRN 02/21/18 02/21/18 tiZANidine HCL 4 mg PO Q8H 02/21/18 02/21/18 Previous Rx's Medication Instructions Recorded EPINEPHrine (Auto Inject) [Epipen] 0.3 mg IM ONCE PRN #2 syringe 02/21/18 predniSONE 40 mg PO DAILY #8 tab 02/21/18 Ondansetron Odt [Zofran ODT] 4 mg PO Q8HR PRN #20 tab 03/25/18 chlordiazePOXIDE HCl [Librium] 25 mg PO DIRECTED #22 capsule 03/25/18 cloNIDine HCL [Catapres] 0.1 mg PO BID #6 tab 03/25/18 Allergies Allergy/AdvReac Type Severity Reaction Status Date / Time bee venom protein (honey bee) Allergy Anaphylaxis Verified 03/25/18 12:40 Sulfa (Sulfonamide Allergy Swelling Verified 03/25/18 12:40 Antibiotics) codeine AdvReac Nausea & Verified 03/25/18 12:40 Vomiting Review of Systems ROS Statement: Those systems with pertinent positive or pertinent negative responses have been documented in the HPI. ROS Other: All systems not noted in ROS Statement are negative. Past Medical History Past Medical History: GERD/Reflux, Hypertension Additional Past Medical History / Comment(s): seasonal allergies History of Any Multi-Drug Resistant Organisms: None Reported Past Surgical History: Hernia Repair Additional Past Surgical History / Comment(s): umbilical hernia repair 2013 Past Anesthesia/Blood Transfusion Reactions: Postoperative Nausea & Vomiting ( PONV) Past Psychological History: No Psychological Hx Reported Smoking Status: Never smoker Past Alcohol Use History: Abuse, Daily, Heavy Past Drug Use History: Prescription Drug Abuse - Past Family History Mother Family Medical History: Cancer, Diabetes Mellitus, Hypertension Additional Family Medical History / Comment(s): nonHodgkins lymphoma Father Family Medical History: Hypertension General Exam - General Exam Comments Initial Comments: General: The patient is awake and alert, in no distress, and does not appear acutely ill. Eye: Pupils are equal, round and reactive to light, extra-ocular movements are intact. No nystagmus. There is normal conjunctiva bilaterally. No signs of icterus. Ears, nose, mouth and throat: There are moist mucous membranes and no oral lesions. Neck: The neck is supple, there is no tenderness or JVD. Cardiovascular: There is a regular rate and rhythm. No murmur, rub or gallop is appreciated. Respiratory: Lungs are clear to auscultation, respirations are non-labored, breath sounds are equal. No wheezes, stridor, rales, or rhonchi. Gastrointestinal: Abdomen soft on palpation. Musculoskeletal: Normal ROM, no tenderness. Strength 5/5. Sensation intact. Pulses equal bilaterally 2+. Neurological: A&O x 3. CN II-XII intact, There are no obvious motor or sensory deficits. Coordination appears grossly intact. Speech is normal. Skin: Skin is warm and dry and no rashes or lesions are noted. Psychiatric: Cooperative, appropriate mood & affect, normal judgment. Limitations: no limitations Course Vital Signs 03/25/18 03/25/18 12:37 13:52 Temperature 98.6 F Pulse Rate 130 H 98 Respiratory 18 18 Rate Blood Pressure 106/75 130/79 O2 Sat by Pulse 97 99 Oximetry EKG Findings - EKG Comments: EKG Findings:: EKG performed at 1350: Shows normal sinus rhythm at 88 bpm. GA interval is 138. QRS 102. QT/QTC 368/445. Compared to previous EKG on 2016. Medical Decision Making - Medical Decision Making Patient reexamined at this time shows no signs of distress. Is resting comfortable. States he feels much better here in the emergency room. Patient labs been reviewed. Options were discussed with patient about admission versus outpatient therapy. He states he would like to go home. He'll be prescribed medications of Zofran, Catapres, and Librium. He is advised to return if any symptoms increase worsen. He states he does plan on trying to get into a rehab program. - Lab Data Result diagrams: 03/25/18 13:14 03/25/18 13:14 Lab Results 03/25/18 03/25/18 03/25/18 Range/Units 13:14 13:14 13:14 WBC 12.9 H (3.8-10.6) k/uL RBC 5.19 (4.30-5.90) m/uL Hgb 15.9 (13.0-17.5) gm/dL Hct 47.5 (39.0-53.0) % MCV 91.4 (80.0-100.0) fL MCH 30.7 (25.0-35.0) pg MCHC 33.6 (31.0-37.0) g/dL RDW 12.9 (11.5-15.5) % Plt Count 233 (150-450) k/uL Neutrophils % 83 % Lymphocytes % 11 % Monocytes % 4 % Eosinophils % 1 % Basophils % 0 % Neutrophils # 10.7 H (1.3-7.7) k/uL Lymphocytes # 1.5 (1.0-4.8) k/uL Monocytes # 0.5 (0-1.0) k/uL Eosinophils # 0.1 (0-0.7) k/uL Basophils # 0.0 (0-0.2) k/uL Sodium 139 (137-145) mmol/L Potassium 4.1 (3.5-5.1) mmol/L Chloride 105 (98-107) mmol/L Carbon Dioxide 18 L (22-30) mmol/L Anion Gap 16 mmol/L BUN 14 (9-20) mg/dL Creatinine 0.60 L (0.66-1.25) mg/dL Est GFR (CKD-EPI)AfAm >90 (>60 ml/min/1.73 sqM) Est GFR (CKD-EPI)NonAf >90 (>60 ml/min/1.73 sqM) Glucose 121 H (74-99) mg/dL Calcium 9.4 (8.4-10.2) mg/dL Phosphorus 3.9 (2.5-4.5) mg/dL Magnesium 1.6 (1.6-2.3) mg/dL Total Bilirubin 1.2 (0.2-1.3) mg/dL AST 101 H (17-59) U/L ALT 65 (21-72) U/L Alkaline Phosphatase 95 (38-126) U/L Total Creatine Kinase 88 (55-170) U/L CK-MB (CK-2) 1.2 (0.0-2.4) ng/mL CK-MB (CK-2) Rel Index 1.4 Troponin I <0.012 (0.000-0.034) ng/mL Total Protein 7.7 (6.3-8.2) g/dL Albumin 4.5 (3.5-5.0) g/dL Lipase 354 H (23-300) U/L Urine Color Urine Appearance (Clear) Urine pH (5.0-8.0) Ur Specific [place] (1.001-1.035) Urine Protein (Negative) Urine Glucose (UA) (Negative) Urine Ketones (Negative) Urine Blood (Negative) Urine Nitrite (Negative) Urine Bilirubin (Negative) Urine Urobilinogen (<2.0) mg/dL Ur Leukocyte Esterase (Negative) Urine RBC (0-5) /hpf Urine WBC (0-5) /hpf Ur Squamous Epith Cells (0-4) /hpf Urine Bacteria (None) /hpf Hyaline Casts (0-2) /lpf Urine Mucus (None) /hpf Serum Alcohol <10 mg/dL 03/25/18 Range/Units 14:46 WBC (3.8-10.6) k/uL RBC (4.30-5.90) m/uL Hgb (13.0-17.5) gm/dL Hct (39.0-53.0) % MCV (80.0-100.0) fL MCH (25.0-35.0) pg MCHC (31.0-37.0) g/dL RDW (11.5-15.5) % Plt Count (150-450) k/uL Neutrophils % % Lymphocytes % % Monocytes % % Eosinophils % % Basophils % % Neutrophils # (1.3-7.7) k/uL Lymphocytes # (1.0-4.8) k/uL Monocytes # (0-1.0) k/uL Eosinophils # (0-0.7) k/uL Basophils # (0-0.2) k/uL Sodium (137-145) mmol/L Potassium (3.5-5.1) mmol/L Chloride (98-107) mmol/L Carbon Dioxide (22-30) mmol/L Anion Gap mmol/L BUN (9-20) mg/dL Creatinine (0.66-1.25) mg/dL Est GFR (CKD-EPI)AfAm (>60 ml/min/1.73 sqM) Est GFR (CKD-EPI)NonAf (>60 ml/min/1.73 sqM) Glucose (74-99) mg/dL Calcium (8.4-10.2) mg/dL Phosphorus (2.5-4.5) mg/dL Magnesium (1.6-2.3) mg/dL Total Bilirubin (0.2-1.3) mg/dL AST (17-59) U/L ALT (21-72) U/L Alkaline Phosphatase (38-126) U/L Total Creatine Kinase (55-170) U/L CK-MB (CK-2) (0.0-2.4) ng/mL CK-MB (CK-2) Rel Index Troponin I (0.000-0.034) ng/mL Total Protein (6.3-8.2) g/dL Albumin (3.5-5.0) g/dL Lipase (23-300) U/L Urine Color Yellow Urine Appearance Cloudy (Clear) Urine pH 5.5 (5.0-8.0) Ur Specific [place] 1.022 (1.001-1.035) Urine Protein 1+ H (Negative) Urine Glucose (UA) Trace H (Negative) Urine Ketones Negative (Negative) Urine Blood Negative (Negative) Urine Nitrite Negative (Negative) Urine Bilirubin Negative (Negative) Urine Urobilinogen <2.0 (<2.0) mg/dL Ur Leukocyte Esterase Negative (Negative) Urine RBC 3 (0-5) /hpf Urine WBC 3 (0-5) /hpf Ur Squamous Epith Cells <1 (0-4) /hpf Urine Bacteria Rare H (None) /hpf Hyaline Casts 13 H (0-2) /lpf Urine Mucus Many H (None) /hpf Serum Alcohol mg/dL Disposition Clinical Impression: Alcohol withdrawal Disposition: HOME SELF-CARE Condition: Good Instructions: Alcohol Withdrawal (ED) Additional Instructions: Please use medication as discussed. Please follow-up with family doctor in the next 2 days. Please return to emergency room if the symptoms increase or worsen or for any other concerns. Prescriptions: chlordiazePOXIDE HCl [Librium] 25 mg PO DIRECTED #22 capsule cloNIDine HCL [Catapres] 0.1 mg PO BID #6 tab Ondansetron Odt [Zofran ODT] 4 mg PO Q8HR PRN #20 tab PRN Reason: Nausea Is patient prescribed a controlled substance at d/c from ED?: No Referrals: Kam Heck MD [Primary Care Provider] - 1-2 days Time of Disposition: 15:03
[2018-03-25 13:33] LABS: ALT 65 U/L (21-72); AST 101 U/L (17-59); Albumin 4.5 g/dL (3.5-5.0); Alcohol <10 mg/dL; Alkaline Phosphatase 95 U/L (38-126); Anion Gap 16 mmol/L; Blood Urea Nitrogen 14 mg/dL (9-20); Calcium 9.4 mg/dL (8.4-10.2); Carbon Dioxide 18 mmol/L (22-30); Chloride 105 mmol/L (98-107); Glucose 121 mg/dL (74-99); Lipase 354 U/L (23-300); Magnesium 1.6 mg/dL (1.6-2.3); Phosphorus 3.9 mg/dL (2.5-4.5); Potassium 4.1 mmol/L (3.5-5.1); Sodium 139 mmol/L (137-145); Total Bilirubin 1.2 mg/dL (0.2-1.3); Total Protein 7.7 g/dL (6.3-8.2)
[2018-03-25 13:53] VITALS: BP 130/79; PULSE 98
[2018-03-25 14:31] LABS: Creatine Kinase 88 U/L (55-170)
[2018-03-25 14:44] LABS: Creatine Kinase MB 1.2 ng/mL (0.0-2.4); Troponin I <0.012 ng/mL (0.000-0.034)
[2018-03-25 14:58] LABS: Appearance,Urine Cloudy (Clear); Bacteria,Urine Rare /hpf; Bilirubin,Urine Negative (Negative); Blood,Urine Negative (Negative); Color,Urine Yellow; Glucose,Urine (UA) Trace (Negative); Hyaline Casts,Urine 13 /lpf (0-2); Ketones,Urine Negative (Negative); Leukocyte Esterase,Urine Negative (Negative); Mucus,Urine Many /hpf; Nitrite,Urine Negative (Negative); PH, Urine 5.5 (5.0-8.0); Protein,Urine 1+ (Negative); RBC,Urine 3 /hpf (0-5); Specific Gravity,Urine 1.022 (1.001-1.035); Squamous Epithelial Cell,Urine <1 /hpf (0-4); Urobilinogen,Urine <2.0 mg/dL (<2.0); WBC,Urine 3 /hpf (0-5)
[2018-03-25] MEDS ORDERED: THIAMINE 100 MG TAB PO SCH (17:00)
== END 2018-03-25 13:55 | disposition home or self-care (01) ==
LOC: EC 12:03
DX: F10.230 Alcohol dependence with withdrawal, uncomplicated (principal); K21.9 Gastro-esophageal reflux disease without esophagitis; I10 Essential (primary) hypertension; Z79.82 Long term (current) use of aspirin; Z79.899 Other long term (current) drug therapy; Z88.2 Allergy status to sulfonamides; Z88.5 Allergy status to narcotic agent; Z91.030 Bee allergy status
CPT/HCPCS: 99285; 96374; 96375; 96361; 96372; 82075; 36415; 93005; 80053; 82550; 82553; 83690; 83735; 84100; 84484; 85025; 81001; 80320; J2060; J3411; J2405

== ENCOUNTER 2019-02-05 09:22 | Inpatient (IN) | payer OTHER ==
[2019-02-05] MEDS ORDERED: SODIUM CHLORIDE 0.9% 1,000 ML IV STA (09:59)
[2019-02-05] MEDS ORDERED: THIAMINE 100 MG/ML 2 ML VIAL IM STA (10:00)
[2019-02-05] MEDS ORDERED: LORazepam 2 MG/ML INJ IV PRN ×2 (10:00)
[2019-02-05 10:39] LABS: Basophils % (A) 0 %; Eosinophils # (A) 0.1 k/uL (0-0.7); Eosinophils % (A) 1 %; HCT 41.4 % (39.0-53.0); HGB 13.7 gm/dL (13.0-17.5); Lymphocytes # (A) 1.7 k/uL (1.0-4.8); Lymphocytes % (A) 23 %; MCH 29.7 pg (25.0-35.0); MCHC 33.1 g/dL (31.0-37.0); MCV 89.7 fL (80.0-100.0); Monocytes # (A) 0.3 k/uL (0-1.0); Monocytes % (A) 5 %; Neutrophils # (A) 5.1 k/uL (1.3-7.7); Neutrophils % (A) 70 %; RBC 4.62 m/uL (4.30-5.90); RDW 15.6 % (11.5-15.5); WBC 7.2 k/uL (3.8-10.6)
[2019-02-05 10:56] LABS: ALT 169 U/L (21-72); AST 363 U/L (17-59); African American GFR (CKD) 18 (>60 ml/min/1.73 sqM); Albumin 3.6 g/dL (3.5-5.0); Alcohol <10 mg/dL; Alkaline Phosphatase 257 U/L (38-126); Anion Gap 18 mmol/L; Blood Urea Nitrogen 19 mg/dL (9-20); Calcium 8.6 mg/dL (8.4-10.2); Carbon Dioxide 27 mmol/L (22-30); Chloride 89 mmol/L (98-107); Glucose 146 mg/dL (74-99); Lipase 173 U/L (23-300); Magnesium 1.9 mg/dL (1.6-2.3); Potassium 2.8 mmol/L (3.5-5.1); Sodium 134 mmol/L (137-145); Total Bilirubin 6.8 mg/dL (0.2-1.3); Total Protein 6.7 g/dL (6.3-8.2)
[2019-02-05 10:59] LABS: INR 1.1 (<1.2); Partial Thromboplastin Time 21.9 sec (22.0-30.0); Prothrombin Time 11.7 sec (9.0-12.0)
[2019-02-05 11:13] LABS: Platelet Count 92 k/uL (150-450); Poikilocytosis (M) Present; Stomatocytes Present
[2019-02-05] MEDS ORDERED: SODIUM CHLORIDE 0.9% 1,000 ML IV ONE (11:20)
[2019-02-05] MEDS ORDERED: POTASSIUM CHLORIDE ER 10 MEQ TAB.ER.PRT PO STA (11:22)
--- NOTE | 2019-02-05 11:32 | XR ---
EXAMINATION TYPE: XR chest 2V DATE OF EXAM: 02/05/2019 COMPARISON: 01/06/2017 HISTORY: Shortness of breath TECHNIQUE: Frontal and lateral views of the chest are obtained. FINDINGS: Scattered senescent parenchymal changes noted. Hyperinflation compatible with COPD. No evidence for infiltrate. No evidence for atelectasis. Heart size is stable. Mediastinal structures are stable and grossly unremarkable. No evidence for hilar prominence. Degenerative changes dorsal spine. IMPRESSION: 1. No evidence for acute pulmonary disease.
[2019-02-05] MEDS: SODIUM CHLORIDE 0.9% 1,000 ML IV SCH ×2 (11:51→20:32)
--- NOTE | 2019-02-05 11:56 | CT ---
EXAMINATION TYPE: CT abdomen pelvis wo con DATE OF EXAM: 02/05/2019 COMPARISON: 01/06/2017 HISTORY: vomiting, weakness, elevated lactic acid CT DLP: 697.1 mGycm Examination of the solid and hollow viscera is limited given the lack of contrast. FINDINGS: LUNG BASES: No evidence for nodule. No evidence for infiltrate. LIVER/GB: Hepatomegaly with hepatic steatosis. The gallbladder is unremarkable. No space-occupying he patic lesion. PANCREAS: No pancreatic mass identified. No inflammatory process seen. SPLEEN: No evidence for splenomegaly. No intrasplenic lesions seen. ADRENALS: No adrenal nodules identified. No evidence for thickening. KIDNEYS: No evidence for renal mass. No nephrolithiasis. No hydronephrosis. BOWEL: Appendix has a normal appearance. No evidence of bowel obstruction. No inflammatory process. N o evidence for free air or abscess. Lymph nodes: No evidence for adenopathy greater than 1 cm. Abdominal aorta: Atheromatous changes seen. No evidence for aneurysm. Genital organs: No significant abnormality. Other: Degenerative changes lumbar spine. A small fat-containing umbilical hernia noted. IMPRESSION: 1. No acute process noted at this time. 2. Hepatomegaly with hepatic steatosis. 3. Fat-containing umbilical hernia small in size.
[2019-02-05] MEDS ORDERED: NALOXONE 0.4 MG/ML 1 ML VIAL IV PRN (12:05)
--- NOTE | 2019-02-05 12:05 | ED ---
Weakness HPI - General Chief complaint: Weakness Stated complaint: falls, vomiting Time Seen by Provider: 02/05/19 09:59 Source: patient Mode of arrival: ambulatory Limitations: no limitations - History of Present Illness Initial comments: 53-year-old male presenting for chief complaint generalized weakness. Patient states that he has been weak and vomiting since Sunday. Patient states he is on naltrexone, patient states he did drink on the medication, then began vomiting. He states the vomiting continued into Sunday, slowed down Sunday and has not had any vomiting since yesterday evening. Does drop to cyst diarrhea fever or recent travel. Patient states he has been unable to keep down water. Patient states when he goes to work for the past 2 days he has felt weak especially going from sitting to standing. Patient states she has been taking his blood pressure medications. Patient states he has cut down his drinking significantly he states he was put on the blood pressure medication but it was elevated when he was a heavy everyday drinker. Patient states he has had slight hand tremors but does not feel like he is withdrawing. Patient has no other complaints denies any chest pain shortness of breath he denies any headache or neck stiffness. Review of systems negative upon arrival patient appears well however the pressure significantly decreased. HR WNL. Afebrile. - Related Data Home Medications Medication Instructions Recorded Confirmed Aspirin EC [Ecotrin Low Dose] 81 mg PO HS 01/06/17 02/05/19 Multivitamins, Thera [Multivitamin 1 tab PO HS 01/06/17 02/05/19 (formulary)] Atorvastatin [Lipitor] 20 mg PO HS 09/19/17 02/05/19 Cholecalciferol [Vitamin D3] 5,000 unit PO HS 09/19/17 02/05/19 amLODIPine BESYLATE/BENAZEPRIL 1 cap PO BID 09/19/17 02/05/19 [amLODIPine BESYLATE/BENAZEPRIL 5-20 mg] Melatonin 3 mg PO HS 02/21/18 02/05/19 Citalopram Hydrobromide [CeleXA] 60 mg PO DAILY 02/05/19 02/05/19 Glucosam/Jaime-Msm1/C/Campbell/Bosw 1 tab PO DAILY 02/05/19 02/05/19 [Glucosamine-Chondroitin Tablet] Naltrexone HCl [Revia] 50 mg PO DAILY 02/05/19 02/05/19 Selma-3 Fatty Acids/Fish Oil [Fish 1 cap PO DAILY 02/05/19 02/05/19 Oil 1,000 mg Softgel] Omeprazole [PriLOSEC] 20 mg PO AC-BID 02/05/19 02/05/19 Ondansetron Odt [Zofran ODT] 4 mg PO TID PRN 02/05/19 02/05/19 Thiamine [Vitamin B-1] 50 mg PO DAILY 02/05/19 02/05/19 traZODone HCL 50 mg PO HS PRN 02/05/19 02/05/19 Previous Rx's Medication Instructions Recorded EPINEPHrine (Auto Inject) [Epipen] 0.3 mg IM ONCE PRN #2 syringe 02/21/18 Allergies Allergy/AdvReac Type Severity Reaction Status Date / Time bee venom protein (honey bee) Allergy Anaphylaxis Verified 02/05/19 10:02 Sulfa (Sulfonamide Allergy Swelling Verified 02/05/19 10:02 Antibiotics) codeine AdvReac Nausea & Verified 02/05/19 10:02 Vomiting Review of Systems ROS Statement: Those systems with pertinent positive or pertinent negative responses have been documented in the HPI. ROS Other: All systems not noted in ROS Statement are negative. Past Medical History Past Medical History: GERD/Reflux, Hypertension, Liver Disease Additional Past Medical History / Comment(s): seasonal allergies History of Any Multi-Drug Resistant Organisms: None Reported Past Surgical History: Hernia Repair Additional Past Surgical History / Comment(s): umbilical hernia repair 2012 Past Anesthesia/Blood Transfusion Reactions: Postoperative Nausea & Vomiting (PONV) Past Psychological History: No Psychological Hx Reported Smoking Status: Never smoker Past Alcohol Use History: Abuse, Daily, Heavy Past Drug Use History: Prescription Drug Abuse - Past Family History Mother Family Medical History: Cancer, Diabetes Mellitus, Hypertension Additional Family Medical History / Comment(s): nonHodgkins lymphoma Father Family Medical History: Hypertension General Exam - General Exam Comments Initial Comments: General: The patient is awake and alert, in no distress, resting comfortably Eye: +3 mm pupils are equal, round and reactive to light, extra-ocular movements are intact. No nystagmus. There is normal conjunctiva bilaterally. No signs of icterus. Ears, nose, mouth and throat: There are moist mucous membranes and no oral lesions. Neck: The neck is supple, there is no tenderness or JVD. Cardiovascular: There is a regular rate and rhythm. No murmur, rub or gallop is appreciated. Respiratory: Lungs are clear to auscultation, respirations are non-labored, breath sounds are equal. No wheezes, stridor, rales, or rhonchi. Gastrointestinal: Soft, non-distended, non-tender abdomen without masses or organomegaly noted. There is no rebound or guarding present. No CVA tenderness. Bowel sounds are unremarkable. Musculoskeletal: Normal ROM, no tenderness. Strength 5/5. Sensation intact. Pulses equal bilaterally 2+. Neurological: A&O x 3. CN II-XII intact, There are no obvious motor or sensory deficits. Coordination appears grossly intact. Speech is normal. No tremor. Skin: Skin is warm and dry and no rashes or lesions are noted. No LE edema. Psychiatric: Cooperative, appropriate mood & affect, normal judgment. Limitations: no limitations Course Vital Signs 02/05/19 02/05/19 02/05/19 09:36 10:15 11:40 Temperature 98.5 F Pulse Rate 91 58 L Respiratory 16 18 Rate Blood Pressure 86/53 77/53 94/62 O2 Sat by Pulse 96 100 Oximetry 02/05/19 13:21 Temperature 98.6 F Pulse Rate 59 L Respiratory 18 Rate Blood Pressure 98/69 O2 Sat by Pulse 98 Oximetry Procedures - [place] Protocol (Time Out) Nurse: Doreen Fiore Medical Decision Making - Medical Decision Making 53-year-old male presented for generalized weakness. Hypotensive upon arrival. Patient states she has been vomiting after drinking while taking naltrexone. Alcohol today 0. Patient dry on exam. Patient Cr increased, troponin elevated, transaminases elevated. No abdominal pain on exam or complaints of abdominal pain. Patient EKG WNL. At this time I feel patient is dehydrated which has caused prerenal acute kidney failure. Lactic acid 5.2 initially, repeat 2.0. Patient afebrile does not appears septic. CT abdomen obtained given history of vomiting although I feel it is medication induced. (-) for acute process. No obstructive urological process noted. UA revealed significant WBC, given ceftriaxone. Potassium 2.8, orally replaced. Patient was given aggressive IV hydration emergency department. BP continues to trend upwards. Remains stable. Discussed case with attending Dr. Borrego, will admit patient for YOVANI, dehydration, elevated troponin and lactic acid. Dr. Pena accepted admission, no further instruction. Nephrology on consult. Patient agreeable with admission. - Lab Data Result diagrams: 02/05/19 10:18 02/05/19 10:18 Lab Results 02/05/19 02/05/19 02/05/19 Range/Units 10:18 10:18 10:18 WBC 7.2 (3.8-10.6) k/uL RBC 4.62 (4.30-5.90) m/uL Hgb 13.7 (13.0-17.5) gm/dL Hct 41.4 (39.0-53.0) % MCV 89.7 (80.0-100.0) fL MCH 29.7 (25.0-35.0) pg MCHC 33.1 (31.0-37.0) g/dL RDW 15.6 H (11.5-15.5) % Plt Count 92 L (150-450) k/uL Neutrophils % 70 % Lymphocytes % 23 % Monocytes % 5 % Eosinophils % 1 % Basophils % 0 % Neutrophils # 5.1 (1.3-7.7) k/uL Lymphocytes # 1.7 (1.0-4.8) k/uL Monocytes # 0.3 (0-1.0) k/uL Eosinophils # 0.1 (0-0.7) k/uL Basophils # 0.0 (0-0.2) k/uL Manual Slide Review Performed Poikilocytosis (manual Present Stomatocytes Present PT (9.0-12.0) sec INR (<1.2) APTT (22.0-30.0) sec Sodium 134 L (137-145) mmol/L Potassium 2.8 L (3.5-5.1) mmol/L Chloride 89 L (98-107) mmol/L Carbon Dioxide 27 (22-30) mmol/L Anion Gap 18 mmol/L BUN 19 (9-20) mg/dL Creatinine 4.06 H (0.66-1.25) mg/dL Est GFR (CKD-EPI)AfAm 18 (>60 ml/min/1.73 sqM) Est GFR (CKD-EPI)NonAf 16 (>60 ml/min/1.73 sqM) Glucose 146 H (74-99) mg/dL Lactic Ac Sepsis Rflx Plasma Lactic Acid Ori 5.2 H* (0.7-2.0) mmol/L Calcium 8.6 (8.4-10.2) mg/dL Magnesium 1.9 (1.6-2.3) mg/dL Total Bilirubin 6.8 H (0.2-1.3) mg/dL AST 363 H (17-59) U/L ALT 169 H (21-72) U/L Alkaline Phosphatase 257 H (38-126) U/L Creatine Kinase (55-170) U/L Troponin I (0.000-0.034) ng/mL Total Protein 6.7 (6.3-8.2) g/dL Albumin 3.6 (3.5-5.0) g/dL Lipase 173 (23-300) U/L Urine Color Urine Appearance (Clear) Urine pH (5.0-8.0) Ur Specific Harper (1.001-1.035) Urine Protein (Negative) Urine Glucose (UA) (Negative) Urine Ketones (Negative) Urine Blood (Negative) Urine Nitrite (Negative) Urine Bilirubin (Negative) Urine Urobilinogen (<2.0) mg/dL Ur Leukocyte Esterase (Negative) Urine RBC (0-5) /hpf Urine WBC (0-5) /hpf Urine WBC Clumps (None) /hpf Ur Squamous Epith Cells (0-4) /hpf Hyaline Casts (0-2) /lpf Urine Mucus (None) /hpf Urine Opiates Screen (NotDetected) Ur Oxycodone Screen (NotDetected) Urine Methadone Screen (NotDetected) Ur Propoxyphene Screen (NotDetected) Ur Barbiturates Screen (NotDetected) U Tricyclic Antidepress (NotDetected) Ur Phencyclidine Scrn (NotDetected) Ur Amphetamines Screen (NotDetected) U Methamphetamines Scrn (NotDetected) U Benzodiazepines Scrn (NotDetected) Urine Cocaine Screen (NotDetected) U Marijuana (THC) Screen (NotDetected) Serum Alcohol <10 mg/dL 02/05/19 02/05/19 02/05/19 Range/Units 10:18 10:18 10:18 WBC (3.8-10.6) k/uL RBC (4.30-5.90) m/uL Hgb (13.0-17.5) gm/dL Hct (39.0-53.0) % MCV (80.0-100.0) fL MCH (25.0-35.0) pg MCHC (31.0-37.0) g/dL RDW (11.5-15.5) % Plt Count (150-450) k/uL Neutrophils % % Lymphocytes % % Monocytes % % Eosinophils % % Basophils % % Neutrophils # (1.3-7.7) k/uL Lymphocytes # (1.0-4.8) k/uL Monocytes # (0-1.0) k/uL Eosinophils # (0-0.7) k/uL Basophils # (0-0.2) k/uL Manual Slide Review Poikilocytosis (manual Stomatocytes PT 11.7 (9.0-12.0) sec INR 1.1 (<1.2) APTT 21.9 L (22.0-30.0) sec Sodium (137-145) mmol/L Potassium (3.5-5.1) mmol/L Chloride (98-107) mmol/L Carbon Dioxide (22-30) mmol/L Anion Gap mmol/L BUN (9-20) mg/dL Creatinine (0.66-1.25) mg/dL Est GFR (CKD-EPI)AfAm (>60 ml/min/1.73 sqM) Est GFR (CKD-EPI)NonAf (>60 ml/min/1.73 sqM) Glucose (74-99) mg/dL Lactic Ac Sepsis Rflx Plasma Lactic Acid Ori (0.7-2.0) mmol/L Calcium (8.4-10.2) mg/dL Magnesium (1.6-2.3) mg/dL Total Bilirubin (0.2-1.3) mg/dL AST (17-59) U/L ALT (21-72) U/L Alkaline Phosphatase (38-126) U/L Creatine Kinase 906 H (55-170) U/L Troponin I 0.054 H* (0.000-0.034) ng/mL Total Protein (6.3-8.2) g/dL Albumin (3.5-5.0) g/dL Lipase (23-300) U/L Urine Color Urine Appearance (Clear) Urine pH (5.0-8.0) Ur Specific Harper (1.001-1.035) Urine Protein (Negative) Urine Glucose (UA) (Negative) Urine Ketones (Negative) Urine Blood (Negative) Urine Nitrite (Negative) Urine Bilirubin (Negative) Urine Urobilinogen (<2.0) mg/dL Ur Leukocyte Esterase (Negative) Urine RBC (0-5) /hpf Urine WBC (0-5) /hpf Urine WBC Clumps (None) /hpf Ur Squamous Epith Cells (0-4) /hpf Hyaline Casts (0-2) /lpf Urine Mucus (None) /hpf Urine Opiates Screen (NotDetected) Ur Oxycodone Screen (NotDetected) Urine Methadone Screen (NotDetected) Ur Propoxyphene Screen (NotDetected) Ur Barbiturates Screen (NotDetected) U Tricyclic Antidepress (NotDetected) Ur Phencyclidine Scrn (NotDetected) Ur Amphetamines Screen (NotDetected) U Methamphetamines Scrn (NotDetected) U Benzodiazepines Scrn (NotDetected) Urine Cocaine Screen (NotDetected) U Marijuana (THC) Screen (NotDetected) Serum Alcohol mg/dL 02/05/19 02/05/19 Range/Units 11:09 11:49 WBC (3.8-10.6) k/uL RBC (4.30-5.90) m/uL Hgb (13.0-17.5) gm/dL Hct (39.0-53.0) % MCV (80.0-100.0) fL MCH (25.0-35.0) pg MCHC (31.0-37.0) g/dL RDW (11.5-15.5) % Plt Count (150-450) k/uL Neutrophils % % Lymphocytes % % Monocytes % % Eosinophils % % Basophils % % Neutrophils # (1.3-7.7) k/uL Lymphocytes # (1.0-4.8) k/uL Monocytes # (0-1.0) k/uL Eosinophils # (0-0.7) k/uL Basophils # (0-0.2) k/uL Manual Slide Review Poikilocytosis (manual Stomatocytes PT (9.0-12.0) sec INR (<1.2) APTT (22.0-30.0) sec Sodium (137-145) mmol/L Potassium (3.5-5.1) mmol/L Chloride (98-107) mmol/L Carbon Dioxide (22-30) mmol/L Anion Gap mmol/L BUN (9-20) mg/dL Creatinine (0.66-1.25) mg/dL Est GFR (CKD-EPI)AfAm (>60 ml/min/1.73 sqM) Est GFR (CKD-EPI)NonAf (>60 ml/min/1.73 sqM) Glucose (74-99) mg/dL Lactic Ac Sepsis Rflx Y Plasma Lactic Acid Ori (0.7-2.0) mmol/L Calcium (8.4-10.2) mg/dL Magnesium (1.6-2.3) mg/dL Total Bilirubin (0.2-1.3) mg/dL AST (17-59) U/L ALT (21-72) U/L Alkaline Phosphatase (38-126) U/L Creatine Kinase (55-170) U/L Troponin I (0.000-0.034) ng/mL Total Protein (6.3-8.2) g/dL Albumin (3.5-5.0) g/dL Lipase (23-300) U/L Urine Color Dark Brown Urine Appearance Turbid (Clear) Urine pH 5.5 (5.0-8.0) Ur Specific Harper 1.021 (1.001-1.035) Urine Protein 1+ H (Negative) Urine Glucose (UA) Trace H (Negative) Urine Ketones Negative (Negative) Urine Blood Small H (Negative) Urine Nitrite Negative (Negative) Urine Bilirubin 2+ H (Negative) Urine Urobilinogen 3.0 (<2.0) mg/dL Ur Leukocyte Esterase Negative (Negative) Urine RBC 3 (0-5) /hpf Urine WBC 47 H (0-5) /hpf Urine WBC Clumps Few H (None) /hpf Ur Squamous Epith Cells 2 (0-4) /hpf Hyaline Casts 157 H (0-2) /lpf Urine Mucus Many H (None) /hpf Urine Opiates Screen Not Detected (NotDetected) Ur Oxycodone Screen Not Detected (NotDetected) Urine Methadone Screen Not Detected (NotDetected) Ur Propoxyphene Screen Not Detected (NotDetected) Ur Barbiturates Screen Not Detected (NotDetected) U Tricyclic Antidepress Not Detected (NotDetected) Ur Phencyclidine Scrn Not Detected (NotDetected) Ur Amphetamines Screen Not Detected (NotDetected) U Methamphetamines Scrn Not Detected (NotDetected) U Benzodiazepines Scrn Not Detected (NotDetected) Urine Cocaine Screen Not Detected (NotDetected) U Marijuana (THC) Screen Not Detected (NotDetected) Serum Alcohol mg/dL - EKG Data EKG Comments: A 12-lead EKG was performed and shows the following: Rate is 68bpm, and rhythm is normal sinus. There are normal QRS complexes and normal R-wave progression. ST segments have no elevation or depression, and IN segments appear normal. IN interval 154 ms, QRS duration 108 ms, QT/QTC 424/450 ms. Disposition Clinical Impression: Dehydration, Acute renal failure, Vomiting, Low blood potassium, Elevated liver enzymes, History of alcohol abuse, Hypotension, Weakness, Elevated troponin Disposition: ADMITTED IP TO THIS [facility] Condition: Serious Is patient prescribed a controlled substance at d/c from ED?: No Time of Disposition: 12:05 Decision to Admit Reason: Admit from EC Decision Date: 02/05/19 Decision Time: 12:05
[2019-02-05 12:11] LABS: Appearance,Urine Turbid (Clear); Bilirubin,Urine 2+ (Negative); Blood,Urine Small (Negative); Color,Urine Dark Brown; Glucose,Urine (UA) Trace (Negative); Hyaline Casts,Urine 157 /lpf (0-2); Ketones,Urine Negative (Negative); Leukocyte Esterase,Urine Negative (Negative); Mucus,Urine Many /hpf; Nitrite,Urine Negative (Negative); PH, Urine 5.5 (5.0-8.0); Protein,Urine 1+ (Negative); RBC,Urine 3 /hpf (0-5); Specific Gravity,Urine 1.021 (1.001-1.035); Squamous Epithelial Cell,Urine 2 /hpf (0-4); WBC,Urine 47 /hpf (0-5)
[2019-02-05 12:32] LABS: Amphetamine Screen,Urine Not Detected (NotDetected); Barbiturate Screen,Urine Not Detected (NotDetected); Benzodiazepines Screen,Urine Not Detected (NotDetected); Cocaine Screen,Urine Not Detected (NotDetected); Methadone Screen, Urine Not Detected (NotDetected); Opiate Screen,Urine Not Detected (NotDetected); Oxycodone Screen, Urine Not Detected (NotDetected); Phencyclidine Screen,Urine Not Detected (NotDetected); Tricyclic Antidepressant,Urine Not Detected (NotDetected); Urn Cannabinoid Scrn Not Detected (NotDetected)
[2019-02-05] MEDS ORDERED: cefTRIAXone IN SWFI 1,000 MG/10 ML SYRINGE IVP STA (12:40)
[2019-02-05] MEDS ORDERED: POTASSIUM CHLORIDE ER 20 MEQ TAB.ER PO STA (14:26)
[2019-02-05] MEDS ORDERED: POTASSIUM CHLORIDE 10 MEQ in WATER FOR INJECTION 1 100ML.BAG IVPB STA (14:26)
--- NOTE | 2019-02-05 14:39 | P.NPCON ---
History of Present Illness - Reason for Consult acute renal failure - History of Present Illness Reason for consultation: Acute kidney injury History of present illness: Patient is a 53-year-old male seen in renal consultation for acute kidney injury. Patient was evaluated in the emergency room. Patient presented to the hospital with generalized weakness. He also admits to nausea and vomiting going on since Sunday. Patient states yesterday he had about 8 episodes of emesis. Denies any diarrhea. 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 He has not been able to eat and drink much. He was also taking antihypertensives at home including losartan. Patient's blood pressure was low in the systolic 70s. He has received 2 L of normal saline bolus and is now maintained on normal saline at 100 mL an hour. No evidence of hydronephrosis was noted on CAT scan. He denies regular use of nonsteroidals. No history of diabetes. Denies family history of renal disease. Patient states he hasn't been urinating much. He denies any hematuria or dysuria. Vomiting has improved. Potassium was low at 2.8 which is being replaced. No abdominal pain. No edema. Vital signs are stable. General: The patient appeared well nourished and normally developed. HEENT: Head exam is unremarkable. Neck is without jugular venous distension. LUNGS: Lungs are clear to auscultation and percussion. Breath sounds decreased. HEART: Rate and Rhythm are regular. First and second heart sounds normal. No murmurs, rubs or gallops. ABDOMEN: Abdominal exam reveals normal bowel sounds. Non-tender and non- distended. No evidence of peritonitis. EXTREMITITES: No clubbing, cyanosis, or edema. Past Medical History Past Medical History: GERD/Reflux, Hyperlipidemia, Hypertension, Liver Disease, Osteoarthritis (OA) Additional Past Medical History / Comment(s): ETOH abuse-has quit several times and last quit 10/2018 but resumed drinking recently while on vacation-last drank 02/02/19, alcoholic hepatitis with past withdrawal/DTs, DDD, cervical and back pain, seasonal allergies. History of Any Multi-Drug Resistant Organisms: None Reported Past Surgical History: Hernia Repair Additional Past Surgical History / Comment(s): umbilical hernia repair 2012, co lonoscopy, vasectomy Past Anesthesia/Blood Transfusion Reactions: Postoperative Nausea & Vomiting (PONV) Past Psychological History: Depression Additional Psychological History / Comment(s): Pt resides alone. He is independent. Smoking Status: Never smoker Past Alcohol Use History: Abuse, Daily, Heavy Additional Past Alcohol Use History / Comment(s): Pt has hx of alcoholism. Pt states he quit drinking in October, and recently relapsed while on vacation- last drank 02/02/19. He states he has quit in the past, once for nearly a year. Additional Drug Use History / Comment(s): Pt denies PDA. - Past Family History Mother Family Medical History: Cancer, Diabetes Mellitus, Hypertension Additional Family Medical History / Comment(s): nonHodgkins lymphoma Father Family Medical History: Hypertension Medications and Allergies Home Medications Medication Instructions Recorded Confirmed Type Aspirin EC [Ecotrin Low Dose] 81 mg PO HS 01/06/17 02/05/19 History Multivitamins, Thera [Multivitamin 1 tab PO HS 01/06/17 02/05/19 History (formulary)] Atorvastatin [Lipitor] 20 mg PO HS 09/19/17 02/05/19 History Cholecalciferol [Vitamin D3] 5,000 unit PO HS 09/19/17 02/05/19 History amLODIPine BESYLATE/BENAZEPRIL 1 cap PO BID 09/19/17 02/05/19 History [amLODIPine BESYLATE/BENAZEPRIL 5-20 mg] EPINEPHrine (Auto Inject) [Epipen] 0.3 mg IM ONCE PRN #2 syringe 02/21/18 02/05/19 Rx Melatonin 3 mg PO HS 02/21/18 02/05/19 History Citalopram Hydrobromide [CeleXA] 60 mg PO DAILY 02/05/19 02/05/19 History Glucosam/Jaime-Msm1/C/Campbell/Bosw 1 tab PO DAILY 02/05/19 02/05/19 History [Glucosamine-Chondroitin Tablet] Naltrexone HCl [Revia] 50 mg PO DAILY 02/05/19 02/05/19 History Humphrey-3 Fatty Acids/Fish Oil [Fish 1 cap PO DAILY 02/05/19 02/05/19 History Oil 1,000 mg Softgel] Omeprazole [PriLOSEC] 20 mg PO AC-BID 02/05/19 02/05/19 History Ondansetron Odt [Zofran ODT] 4 mg PO TID PRN 02/05/19 02/05/19 History Thiamine [Vitamin B-1] 50 mg PO DAILY 02/05/19 02/05/19 History traZODone HCL 50 mg PO HS PRN 02/05/19 02/05/19 History Allergies Allergy/AdvReac Type Severity Reaction Status Date / Time bee venom protein (honey bee) Allergy Anaphylaxis Verified 02/05/19 10:02 Sulfa (Sulfonamide Allergy Swelling Verified 02/05/19 10:02 Antibiotics) codeine AdvReac Nausea & Verified 02/05/19 10:02 Vomiting Physical Exam Vitals: Vital Signs Temp Pulse Resp BP Pulse Ox 02/05/19 13:21 98.6 F 59 L 18 98/69 98 02/05/19 11:40 58 L 18 94/62 100 02/05/19 10:15 77/53 02/05/19 09:36 98.5 F 91 16 86/53 96 Intake and Output 02/04/19 02/05/19 02/05/19 22:59 06:59 14:59 Other: Weight 90.718 kg Results - Lab Results Most recent lab results Calcium 8.6 mg/dL (8.4-10.2) 02/05/19 10:18 Magnesium 1.9 mg/dL (1.6-2.3) 02/05/19 10:18 02/05/19 10:18 02/05/19 10:18 Assessment and Plan Plan: Assessment: 1. Acute kidney injury mostly prerenal secondary to hypotension and intravascular volume depletion from vomiting. Creatinine 4.06 on admission. Baseline creatinine near 1. No evidence of hydronephrosis noted. 2. Hypotension secondary to antihypertensives and intravascular volume depletion. 3. Hypokalemia from poor oral intake. Magnesium normal. Being replaced. 4. Lactic acidosis secondary to hypotension. 5. Nausea and vomiting. Better. ? Gastroenteritis. No acute process noted on CAT scan. Plan: Maintain normal saline at 100 mL an hour. Hold antihypertensives. Check morning cortisol level. Replace potassium. 80 mEq today. Repeat electrolytes in the morning. Thank you for the consultation. I will continue to follow the patient with you during his hospital stay.
[2019-02-05] MEDS ORDERED: traZODone HCL 50 MG TAB PO PRN (17:18)
[2019-02-05] MEDS: PANTOPRAZOLE 40 MG TABLET PO SCH (18:25)
[2019-02-05] MEDS: LORazepam 2 MG/ML INJ IV PRN (18:33)
[2019-02-05] MEDS: MULTIVITAMINS, THERA 1 EACH TAB PO SCH (19:55)
[2019-02-05] MEDS: ATORVASTATIN 20 MG TAB PO SCH (20:32)
[2019-02-05] MEDS: THIAMINE 100 MG TAB PO SCH (20:32)
[2019-02-05] MEDS: ASPIRIN 81 MG PO SCH (20:32)
[2019-02-05] MEDS ORDERED: ENOXAPARIN 30 MG/0.3 ML SYRINGE SQ SCH (23:00)
--- NOTE | 2019-02-05 23:05 | P.HPIM ---
History of Present Illness H&P Date: 02/05/19 Chief Complaint: Weak and tired History of presenting complaint: This is a pleasant 53-year-old patient follows with from [place]. Chronic stable medical conditions include GERD, hypertension, hyperlipidemia. History drink heavy alcohol and he did not drink since October. Patient over 2 weeks ago went on vacation started drinking again. 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 For last 3 days has been feeling what he describes as hot and started vomiting for 3 days not able to keep much food down this morning was lightheaded and got dizzy twice and he started get up. He felt rather exhausted. Finally was sent into the hospital from his work. No fever no chills. Just exhausted and tired. No chest pain no palpitation. Review of systems: GEN.: Weak tired, dizzy EYES: None HEENT: None NECK: None RESPIRATORY: None CARDIOVASCULAR: None GASTROINTESTINAL: Nausea vomiting, not able to keep much food down GENITOURINARY: None MUSCULOSKELETAL: None LYMPHATICS: None HEMATOLOGICAL: None PSYCHIATRY: None NEUROLOGICAL: Some tremorsc Past medical history: GERD, hypertension, liver disease, seasonal ALLERGIES Social history patient is drinking alcohol for several years up to 3 months ago but then relapsed about 10 days ago when he went on a vacation. Smoking never. 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 EYES: Pupils equal. Conjunctiva normal. HEENT: External appearance of nose and ears normal, oral cavity grossly normal. NECK: JVD not raised; masses not palpable. HEART: First and second heart sounds are normal; no edema. LUNGS: Respiratory rate normal; clear to auscultation. ABDOMEN: Soft, nontender, liver spleen not palpable, no masses palpable. PSYCH: Alert and oriented x3; mood and affect bit anxiousl. NEUROLOGICAL: Cranial nerves grossly intact; no facial asymmetry, power and sensation grossly intact, fine tremors. LYMPHATICS: No lymph nodes palpable in the axilla and neck INVESTIGATIONS, reviewed in the clinical context: White count 7.2 hemoglobin 13.7 platelets 92 potassium 2.8 BUN 19 creatinine is 4.06 Potassium 2.8 crit and 4.06 AST 363 ENT was 69 total bilirubin 6.8 Assessment: -Acute severe renal failure from persistent vomiting chronic causing acute kidney injury -Severe hypokalemia from vomiting -Lactic acidosis type II from dehydration -Alcoholic hepatitis -Troponin leak likely from hemodynamic mismatch no evidence of acute cornea syndrome -GERD -Essential hypertension -Hyperlipidemia -Early alcohol withdrawal syndrome -Mild rhabdomyolysis Plan: Patient started and IV fluids decisions such patient's fluids to lactated Ringer's. We'll also add Valium 2 mg 3 times a day for withdrawal syndrome control follow electrolytes closely repeat labs in the morning care was discussed with the patient Past Medical History Past Medical History: GERD/Reflux, Hypertension, Liver Disease Additional Past Medical History / Comment(s): seasonal allergies History of Any Multi-Drug Resistant Organisms: None Reported Past Surgical History: Hernia Repair Additional Past Surgical History / Comment(s): umbilical hernia repair 2012 Past Anesthesia/Blood Transfusion Reactions: Postoperative Nausea & Vomiting (PONV) Past Psychological History: No Psychological Hx Reported Smoking Status: Never smoker Past Alcohol Use History: Abuse, Daily, Heavy Past Drug Use History: Prescription Drug Abuse - Past Family History Mother Family Medical History: Cancer, Diabetes Mellitus, Hypertension Additional Family Medical History / Comment(s): nonHodgkins lymphoma Father Family Medical History: Hypertension Medications and Allergies Home Medications Medication Instructions Recorded Confirmed Type Aspirin EC [Ecotrin Low Dose] 81 mg PO HS 01/06/17 02/05/19 History Multivitamins, Thera [Multivitamin 1 tab PO HS 01/06/17 02/05/19 History (formulary)] Atorvastatin [Lipitor] 20 mg PO HS 09/19/17 02/05/19 History Cholecalciferol [Vitamin D3] 5,000 unit PO HS 09/19/17 02/05/19 History amLODIPine BESYLATE/BENAZEPRIL 1 cap PO BID 09/19/17 02/05/19 History [amLODIPine BESYLATE/BENAZEPRIL 5-20 mg] EPINEPHrine (Auto Inject) [Epipen] 0.3 mg IM ONCE PRN #2 syringe 02/21/18 02/05/19 Rx Melatonin 3 mg PO HS 02/21/18 02/05/19 History Citalopram Hydrobromide [CeleXA] 60 mg PO DAILY 02/05/19 02/05/19 History Glucosam/Jaime-Msm1/C/Campbell/Bosw 1 tab PO DAILY 02/05/19 02/05/19 History [Glucosamine-Chondroitin Tablet] Naltrexone HCl [Revia] 50 mg PO DAILY 02/05/19 02/05/19 History [place]-3 Fatty Acids/Fish Oil [Fish 1 cap PO DAILY 02/05/19 02/05/19 History Oil 1,000 mg Softgel] Omeprazole [PriLOSEC] 20 mg PO AC-BID 02/05/19 02/05/19 History Ondansetron Odt [Zofran ODT] 4 mg PO TID PRN 02/05/19 02/05/19 History Thiamine [Vitamin B-1] 50 mg PO DAILY 02/05/19 02/05/19 History traZODone HCL 50 mg PO HS PRN 02/05/19 02/05/19 History Allergies Allergy/AdvReac Type Severity Reaction Status Date / Time bee venom protein (honey bee) Allergy Anaphylaxis Verified 02/05/19 10:02 Sulfa (Sulfonamide Allergy Swelling Verified 02/05/19 10:02 Antibiotics) codeine AdvReac Nausea & Verified 02/05/19 10:02 Vomiting Physical Exam Vitals: Vital Signs Temp Pulse Pulse Resp BP BP Pulse Ox 02/05/19 19:50 98.5 F 69 17 101/62 100 02/05/19 18:30 72 18 109/65 98 02/05/19 17:51 68 18 99/63 99 02/05/19 15:25 76 18 98/62 98 02/05/19 13:21 98.6 F 59 L 18 98/69 98 02/05/19 11:40 58 L 18 94/62 100 02/05/19 10:15 77/53 02/05/19 09:36 98.5 F 91 16 86/53 96 Intake and Output 02/05/19 02/05/19 02/05/19 06:59 14:59 22:59 Other: Voiding Method Toilet Weight 90.718 kg Results CBC & Chem 7: 02/05/19 10:18 02/05/19 10:18 Labs: Abnormal Lab Results - Last 24 Hours (Table) 02/05/19 02/05/19 02/05/19 Range/Units 10:18 10:18 10:18 RDW 15.6 H (11.5-15.5) % Plt Count 92 L (150-450) k/uL APTT (22.0-30.0) sec Sodium 134 L (137-145) mmol/L Potassium 2.8 L (3.5-5.1) mmol/L Chloride 89 L (98-107) mmol/L Creatinine 4.06 H (0.66-1.25) mg/dL Glucose 146 H (74-99) mg/dL Plasma Lactic Acid Ori 5.2 H* (0.7-2.0) mmol/L Total Bilirubin 6.8 H (0.2-1.3) mg/dL AST 363 H (17-59) U/L ALT 169 H (21-72) U/L Alkaline Phosphatase 257 H (38-126) U/L Creatine Kinase (55-170) U/L Troponin I (0.000-0.034) ng/mL Urine Protein (Negative) Urine Glucose (UA) (Negative) Urine Blood (Negative) Urine Bilirubin (Negative) Urine WBC (0-5) /hpf Urine WBC Clumps (None) /hpf Hyaline Casts (0-2) /lpf Urine Mucus (None) /hpf 02/05/19 02/05/19 02/05/19 Range/Units 10:18 10:18 10:18 RDW (11.5-15.5) % Plt Count (150-450) k/uL APTT 21.9 L (22.0-30.0) sec Sodium (137-145) mmol/L Potassium (3.5-5.1) mmol/L Chloride (98-107) mmol/L Creatinine (0.66-1.25) mg/dL Glucose (74-99) mg/dL Plasma Lactic Acid Ori (0.7-2.0) mmol/L Total Bilirubin (0.2-1.3) mg/dL AST (17-59) U/L ALT (21-72) U/L Alkaline Phosphatase (38-126) U/L Creatine Kinase 906 H (55-170) U/L Troponin I 0.054 H* (0.000-0.034) ng/mL Urine Protein (Negative) Urine Glucose (UA) (Negative) Urine Blood (Negative) Urine Bilirubin (Negative) Urine WBC (0-5) /hpf Urine WBC Clumps (None) /hpf Hyaline Casts (0-2) /lpf Urine Mucus (None) /hpf 02/05/19 Range/Units 11:49 RDW (11.5-15.5) % Plt Count (150-450) k/uL APTT (22.0-30.0) sec Sodium (137-145) mmol/L Potassium (3.5-5.1) mmol/L Chloride (98-107) mmol/L Creatinine (0.66-1.25) mg/dL Glucose (74-99) mg/dL Plasma Lactic Acid Ori (0.7-2.0) mmol/L Total Bilirubin (0.2-1.3) mg/dL AST (17-59) U/L ALT (21-72) U/L Alkaline Phosphatase (38-126) U/L Creatine Kinase (55-170) U/L Troponin I (0.000-0.034) ng/mL Urine Protein 1+ H (Negative) Urine Glucose (UA) Trace H (Negative) Urine Blood Small H (Negative) Urine Bilirubin 2+ H (Negative) Urine WBC 47 H (0-5) /hpf Urine WBC Clumps Few H (None) /hpf Hyaline Casts 157 H (0-2) /lpf Urine Mucus Many H (None) /hpf Thrombosis Risk Factor Assmnt - Choose All That Apply Any of the Below Risk Factors Present?: Yes Each Factor Represents 1 point: Age 41-60 years, Obesity (BMI >25) Other Risk Factors: No Other congenital or acquired thrombophilia - If yes, enter type in comment: No Thrombosis Risk Factor Assessment Total Risk Factor Score: 2 Thrombosis Risk Factor Assessment Level: Low Risk
[2019-02-05] MEDS: MELATONIN 3 MG TABLET PO SCH (23:18)
[2019-02-05] MEDS: LACTATED RINGERS 1,000 ML IV SCH (23:27)
[2019-02-05] MEDS: DIAZEPAM 2 MG TAB PO SCH (23:27)
[2019-02-06 06:03] LABS: Calcium 8.1 mg/dL (8.4-10.2); Potassium 3.8 mmol/L (3.5-5.1)
[2019-02-06] MEDS: THIAMINE 100 MG TAB PO SCH ×2 (06:31→16:44)
[2019-02-06] MEDS: PANTOPRAZOLE 40 MG TABLET PO SCH ×2 (06:31→16:44)
[2019-02-06] MEDS: LORazepam 2 MG/ML INJ IV PRN (06:35)
[2019-02-06] MEDS: LACTATED RINGERS 1,000 ML IV SCH ×3 (06:35→16:47)
[2019-02-06] MEDS ORDERED: THIAMINE 50 MG PO SCH (09:00)
[2019-02-06] MEDS: CITALOPRAM HYDROBROMIDE 20 MG TAB PO SCH (09:14)
[2019-02-06] MEDS: NALTREXONE HCL 50 MG TAB PO SCH (09:14)
[2019-02-06] MEDS: DIAZEPAM 2 MG TAB PO SCH ×3 (09:14→21:43)
[2019-02-06 10:21] VITALS: BMI 30.2
--- NOTE | 2019-02-06 11:09 | P.PN ---
Subjective Patient is seen in follow-up for acute kidney injury. Creatinine was 4.06 on admission and is down to 1.29 today. Patient denies any chest pain or shortness of breath. Blood pressures controlled. He is maintained on IV fluids. Good urine output. No dizziness. Vital signs are stable. General: The patient appeared well nourished and normally developed. HEENT: Head exam is unremarkable. Neck is without jugular venous distension. LUNGS: Lungs are clear to auscultation and percussion. Breath sounds decreased. HEART: Rate and Rhythm are regular. First and second heart sounds normal. No murmurs, rubs or gallops. ABDOMEN: Abdominal exam reveals normal bowel sounds. Non-tender and non- distended. No evidence of peritonitis. EXTREMITITES: No clubbing, cyanosis, or edema. Objective - Vital Signs Vital signs: Vital Signs Temp 98 F 02/06/19 08:00 Pulse 75 02/06/19 08:00 Resp 18 02/06/19 08:00 BP 128/84 02/06/19 08:00 Pulse Ox 93 L 02/06/19 08:00 Intake & Output 02/05/19 02/06/19 02/06/19 18:59 06:59 18:59 Intake Total 250 360 Balance 250 360 Weight 90.718 kg 98.4 kg 98.4 kg Intake: Intake, IV Titration 250 Amount Sodium Chloride 0.9% 1, 250 000 ml @ 100 mls/hr IV . Q10H [facility] Rx#:[id number] Oral 360 Other: Voiding Method Toilet # Voids 1 - Labs CBC & Chem 7: 02/05/19 10:18 02/06/19 05:33 Labs: Abnormal Lab Results - Last 24 Hours (Table) 02/05/19 02/05/19 02/05/19 Range/Units 10:18 10:18 10:18 RDW 15.6 H (11.5-15.5) % Plt Count 92 L (150-450) k/uL Creatinine (0.66-1.25) mg/dL Glucose (74-99) mg/dL Plasma Lactic Acid Ori 5.2 H* (0.7-2.0) mmol/L Calcium (8.4-10.2) mg/dL Creatine Kinase (55-170) U/L Troponin I 0.054 H* (0.000-0.034) ng/mL Urine Protein (Negative) Urine Glucose (UA) (Negative) Urine Blood (Negative) Urine Bilirubin (Negative) Urine WBC (0-5) /hpf Urine WBC Clumps (None) /hpf Hyaline Casts (0-2) /lpf Urine Mucus (None) /hpf 02/05/19 02/05/19 02/06/19 Range/Units 10:18 11:49 05:33 RDW (11.5-15.5) % Plt Count (150-450) k/uL Creatinine 1.29 H (0.66-1.25) mg/dL Glucose 104 H (74-99) mg/dL Plasma Lactic Acid Ori (0.7-2.0) mmol/L Calcium 8.1 L (8.4-10.2) mg/dL Creatine Kinase 906 H (55-170) U/L Troponin I (0.000-0.034) ng/mL Urine Protein 1+ H (Negative) Urine Glucose (UA) Trace H (Negative) Urine Blood Small H (Negative) Urine Bilirubin 2+ H (Negative) Urine WBC 47 H (0-5) /hpf Urine WBC Clumps Few H (None) /hpf Hyaline Casts 157 H (0-2) /lpf Urine Mucus Many H (None) /hpf Assessment and Plan Plan: Assessment: 1. Acute kidney injury mostly prerenal secondary to hypotension and intravascular volume depletion from vomiting. Creatinine 4.06 on admission and is down to 1.29 today. Baseline creatinine near 1. No evidence of hydronephrosis noted. 2. Hypotension secondary to antihypertensives and intravascular volume depletion. Resolved. 3. Hypokalemia from poor oral intake. Magnesium normal. Better post replacement. 4. Lactic acidosis secondary to hypotension. 5. Nausea and vomiting. Better. ? Gastroenteritis. No acute process noted on CAT scan. Plan: Decreased rate of LR to 75 mL an hour. Hold antihypertensives.
[2019-02-06 17:27] VITALS: RESP 20
--- NOTE | 2019-02-06 17:29 | P.PN ---
Progress Note - Text Progress Note Date: 02/06/19 Chief Complaint: Weak and tired Interval history: This is a pleasant 53-year-old patient follows with from [place]. Chronic stable medical conditions include GERD, hypertension, hyperlipidemia. History drink heavy alcohol and he did not drink since October. Patient over 2 weeks ago went on vacation started drinking again. 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 For last 3 days has been feeling what he describes as hot and started vomiting for 3 days not able to keep much food down this morning was lightheaded and got dizzy twice and he started get up. He felt rather exhausted. Finally was sent into the hospital from his work. No fever no chills. Just exhausted and tired. No chest pain no palpitation. Admitting diagnoses acute severe renal failure, severe hyperkalemia, lactic acidosis. Today-does feel a bit better. Up to the bathroom. Still some shaking is present. Oral intake improving. Oral intake improving Review of systems: Was done for constitutional, cardiovascular, GI, pulmonary. relevant finding as above Active Medications Aspirin (Aspirin) 81 mg PO [facility] Last Admin: 02/05/19 20:32 Dose: 81 mg Documented by: Atorvastatin Calcium (Lipitor) 20 mg PO [facility] Last Admin: 02/05/19 20:32 Dose: 20 mg Documented by: Citalopram Hydrobromide (Celexa) 60 mg PO DAILY [facility] Last Admin: 02/06/19 09:14 Dose: 60 mg Documented by: Diazepam (Valium) 2 mg PO TID [facility] Last Admin: 02/06/19 15:27 Dose: 2 mg Documented by: Enoxaparin Sodium (Lovenox) 40 mg SQ Q24H [facility] Lactated Ringer's (Lactated Ringers) 1,000 mls @ 150 mls/hr IV .Q6H40M [facility] Last Admin: 02/06/19 16:47 Dose: 150 mls/hr Documented by: Lorazepam (Ativan) 1 mg IV Q2HR PRN PRN Reason: CIWA 8 or 9 Last Admin: 02/06/19 06:35 Dose: 1 mg Documented by: Lorazepam (Ativan) 1 mg IV Q1HR PRN PRN Reason: CIWA 10 to 15 Lorazepam (Ativan) 2 mg IV Q10M PRN PRN Reason: CIWA 16 or higher Stop: 02/07/19 10:00 Melatonin (Melatonin) 3 mg PO HS [facility] Last Admin: 02/05/19 23:18 Dose: Not Given Documented by: Multivitamins (Theragran) 1 each PO HS [facility] Last Admin: 02/05/19 19:55 Dose: Not Given Documented by: Naloxone HCl (Narcan) 0.2 mg IV Q2M PRN PRN Reason: Opioid Reversal Naltrexone HCl (Revia) 50 mg PO DAILY [facility] Last Admin: 02/06/19 09:14 Dose: 50 mg Documented by: Pantoprazole Sodium (Protonix) 40 mg PO AC-BID [facility] Last Admin: 02/06/19 16:44 Dose: 40 mg Documented by: Thiamine HCl (Vitamin B-1) 100 mg PO BID-W/MEALS [facility] Last Admin: 02/06/19 16:44 Dose: 100 mg Documented by: Trazodone HCl (Desyrel) 50 mg PO HS PRN PRN Reason: Insomnia Last Admin: 02/05/19 22:25 Dose: 50 mg Documented by: Physical examination: VITAL SIGNS: 98, 75, 18, 120s/84, 93% room air GENERAL: Sitting up, appears a bit more steady today EYES: Pupils equal. Conjunctiva normal. HEENT: External appearance of nose and ears normal, oral cavity grossly normal. NECK: JVD not raised; masses not palpable. HEART: First and second heart sounds are normal; no edema. LUNGS: Respiratory rate normal; clear to auscultation. ABDOMEN: Soft, nontender, liver spleen not palpable, no masses palpable. PSYCH: Alert and oriented x3; mood and affect bit anxiousl. NEUROLOGICAL: Cranial nerves grossly intact; no facial asymmetry, power and sensation grossly intact, fine tremors. INVESTIGATIONS, reviewed in the clinical context: White count 7.2 hemoglobin 13.7 platelets 92 potassium 2.8 BUN 19 creatinine is 4.06 Potassium 3.8 BUN 10 creatinine 1.29 Assessment: -Acute severe renal failure from persistent vomiting chronic causing acute kidney injury, improving -Severe hypokalemia from vomiting, improving -Lactic acidosis type II from dehydration -Alcoholic hepatitis -Troponin leak likely from hemodynamic mismatch no evidence of acute cornea syndrome -GERD -Essential hypertension -Hyperlipidemia -Early alcohol withdrawal syndrome -Mild rhabdomyolysis Plan: We'll keep the patient on Valium today. Potassium being aggressively replaced. So his magnesium. Patient is counseled against drinking alcohol yet again. Questions were answered. Encouraged to ablate. Possible discharge in 24 hours.
[2019-02-06] MEDS ORDERED: ENOXAPARIN 40 MG/0.4 ML SYRINGE SQ SCH (21:00)
[2019-02-06] MEDS: ASPIRIN 81 MG PO SCH (21:43)
[2019-02-06] MEDS: MULTIVITAMINS, THERA 1 EACH TAB PO SCH (21:43)
[2019-02-06] MEDS: ATORVASTATIN 20 MG TAB PO SCH (21:43)
[2019-02-06] MEDS: MELATONIN 3 MG TABLET PO SCH (21:43)
[2019-02-07] MEDS: LACTATED RINGERS 1,000 ML IV SCH ×2 (01:41→07:37)
[2019-02-07 05:21] VITALS: BP 143/96; PULSE 73; TEMP 97.8
[2019-02-07] MEDS: DIAZEPAM 2 MG TAB PO SCH (07:37)
[2019-02-07] MEDS: CITALOPRAM HYDROBROMIDE 20 MG TAB PO SCH (07:37)
[2019-02-07] MEDS: NALTREXONE HCL 50 MG TAB PO SCH (07:37)
[2019-02-07] MEDS: PANTOPRAZOLE 40 MG TABLET PO SCH (07:37)
[2019-02-07] MEDS: THIAMINE 100 MG TAB PO SCH (07:37)
[2019-02-07 10:09] LABS: African American GFR (CKD) >90 (>60 ml/min/1.73 sqM); Anion Gap 7 mmol/L; Blood Urea Nitrogen 4 mg/dL (9-20); Calcium 8.5 mg/dL (8.4-10.2); Carbon Dioxide 27 mmol/L (22-30); Chloride 106 mmol/L (98-107); Glucose 126 mg/dL (74-99); Magnesium 1.9 mg/dL (1.6-2.3); Potassium 4.1 mmol/L (3.5-5.1); Sodium 140 mmol/L (137-145)
--- NOTE | 2019-02-10 00:05 | P.DS ---
Providers Date of admission: 02/05/19 13:02 Expected date of discharge: 02/07/19 Attending physician: Andres Pena Consults: 02/05/19 12:05 Consult Physician Routine Consulting Provider: Jenni Winston Consult Reason/Comments: acute renal failure (suspected pre renal) Do you want consulting provider notified?: Yes Primary care physician: Kam Heck [facility] Course: Interval history: This is a pleasant 53-year-old patient follows with from [place]. Chronic stable medical conditions include GERD, hypertension, hyperlipidemia. History drink heavy alcohol and he did not drink since October. Patient over 2 weeks ago went on vacation started drinking again. 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 For last 3 days has been feeling what he describes as hot and started vomiting for 3 days not able to keep much food down this morning was lightheaded and got dizzy twice and he started get up. He felt rather exhausted. Finally was sent into the hospital from his work. No fever no chills. Just exhausted and tired. No chest pain no palpitation. Admitting diagnoses acute severe renal failure, severe hyperkalemia, lactic acidosis. Treated with IV fluids. Electrolytes were corrected. He'll also put on Valium for early alcohol withdrawal syndrome. Doing much better by the time of discharge. Creatinine dropped from 4.06 down to 0.81. Patient is counseled at length about his alcohol. Questions were answered. Patient's up and about. Feeling well. Discussion and discharge planning more than 35 minutes Physical examination: VITAL SIGNS: 97.8, 73, 20, 143/96, 95% room air GENERAL: Sitting up in a chair, comfortable EYES: Pupils equal. Conjunctiva normal. HEENT: External appearance of nose and ears normal, oral cavity grossly normal. NECK: JVD not raised; masses not palpable. HEART: First and second heart sounds are normal; no edema. LUNGS: Respiratory rate normal; clear to auscultation. ABDOMEN: Soft, nontender, liver spleen not palpable, no masses palpable. PSYCH: Alert and oriented x3; mood and affect bit anxiousl. NEUROLOGICAL: Cranial nerves grossly intact; no facial asymmetry, power and sensation grossly intact, fine tremors. INVESTIGATIONS, reviewed in the clinical context: Creatinine 0.81 Assessment: -Acute severe renal failure, prerenal from persistent vomiting chronic causing acute kidney injury, improving -Severe hypokalemia from vomiting, improving -Lactic acidosis type II from dehydration -Alcoholic hepatitis -Troponin leak likely from hemodynamic mismatch no evidence of acute coronary syndrome -GERD -Essential hypertension -Hyperlipidemia -Early alcohol withdrawal syndrome -Mild rhabdomyolysis Disposition: Home Patient Condition at Discharge: Stable Plan - Discharge Summary Discharge Rx Participant: No New Discharge Prescriptions: New Metoprolol Tartrate [Lopressor] 12.5 mg PO BID #6 dose Continue Multivitamins, Thera [Multivitamin (formulary)] 1 tab PO HS Aspirin EC [Ecotrin Low Dose] 81 mg PO HS Cholecalciferol [Vitamin D3 (25 Mcg = 1000 Iu)] 5,000 unit PO HS Atorvastatin [Lipitor] 20 mg PO HS Melatonin 3 mg PO HS EPINEPHrine (Auto Inject) [Epipen] 0.3 mg IM ONCE PRN #2 syringe PRN Reason: Anaphylaxis Omeprazole [PriLOSEC] 20 mg PO AC-BID Ondansetron Odt [Zofran ODT] 4 mg PO TID PRN PRN Reason: Nausea Glucosam/Jaime-Msm1/C/[place]/Bosw [Glucosamine-Chondroitin Tablet] 1 tab PO DAILY traZODone HCL 50 mg PO HS PRN PRN Reason: Insomnia Thiamine [Vitamin B-1] 50 mg PO DAILY Naltrexone HCl [Revia] 50 mg PO DAILY Citalopram Hydrobromide [CeleXA] 60 mg PO DAILY [place]-3 Fatty Acids/Fish Oil [Fish Oil 1,000 mg Softgel] 1 cap PO DAILY Discontinued amLODIPine BESYLATE/BENAZEPRIL [amLODIPine BESYLATE/BENAZEPRIL 5-20 mg] 1 cap PO BID Discharge Medication List Aspirin EC [Ecotrin Low Dose] 81 mg PO HS 01/06/17 [History] Multivitamins, Thera [Multivitamin (formulary)] 1 tab PO HS 01/06/17 [History] Atorvastatin [Lipitor] 20 mg PO HS 09/19/17 [History] Cholecalciferol [Vitamin D3 (25 Mcg = 1000 Iu)] 5,000 unit PO HS 09/19/17 [History] EPINEPHrine (Auto Inject) [Epipen] 0.3 mg IM ONCE PRN #2 syringe 02/21/18 [Rx] Melatonin 3 mg PO HS 02/21/18 [History] Citalopram Hydrobromide [CeleXA] 60 mg PO DAILY 02/05/19 [History] Glucosam/Jaime-Msm1/C/[place]/Bosw [Glucosamine-Chondroitin Tablet] 1 tab PO DAILY 02/05/19 [History] Naltrexone HCl [Revia] 50 mg PO DAILY 02/05/19 [History] [place]-3 Fatty Acids/Fish Oil [Fish Oil 1,000 mg Softgel] 1 cap PO DAILY 02/05/19 [History] Omeprazole [PriLOSEC] 20 mg PO AC-BID 02/05/19 [History] Ondansetron Odt [Zofran ODT] 4 mg PO TID PRN 02/05/19 [History] Thiamine [Vitamin B-1] 50 mg PO DAILY 02/05/19 [History] traZODone HCL 50 mg PO HS PRN 02/05/19 [History] Metoprolol Tartrate [Lopressor] 12.5 mg PO BID #6 dose 02/07/19 [Rx] Follow up Appointment(s)/Referral(s): Kam Heck MD [Primary Care Provider] - 02/10/19 12:15 pm Patient Instructions/Handouts: Dehydration (DC), Abuse of Alcohol (DC) Discharge/Stand Alone Forms: Work/Release Restrictions Form
== END 2019-02-07 12:27 | disposition home or self-care (01) | DRG 683 ==
LOC: EC 09:22 → 3SCARD 13:02 → 4MS4W 02-06 15:39
PROVIDERS: ADMIT Hospitalist; ATTEND Hospitalist
DX: N17.9 Acute kidney failure, unspecified (principal); E87.2 Acidosis; M62.82 Rhabdomyolysis; F10.239 Alcohol dependence with withdrawal, unspecified; I95.9 Hypotension, unspecified; K70.10 Alcoholic hepatitis without ascites; E87.6 Hypokalemia; E86.0 Dehydration; K21.9 Gastro-esophageal reflux disease without esophagitis; I10 Essential (primary) hypertension; E78.5 Hyperlipidemia, unspecified; Y90.0 Blood alcohol level of less than 20 mg/100 ml; K76.9 Liver disease, unspecified; K52.9 Noninfective gastroenteritis and colitis, unspecified; F32.9 Major depressive disorder, single episode, unspecified; M19.90 Unspecified osteoarthritis, unspecified site; M54.2 Cervicalgia; M54.9 Dorsalgia, unspecified; R77.8 Other specified abnormalities of plasma proteins; Z79.82 Long term (current) use of aspirin; Z79.899 Other long term (current) drug therapy; Z88.5 Allergy status to narcotic agent; Z88.2 Allergy status to sulfonamides; Z91.030 Bee allergy status; Z91.048 Other nonmedicinal substance allergy status; Z98.890 Other specified postprocedural states; Z83.3 Family history of diabetes mellitus; Z82.49 Family history of ischemic heart disease and other diseases of the circulatory system; Z80.7 Family history of other malignant neoplasms of lymphoid, hematopoietic and related tissues
CPT/HCPCS: 36415; 71046; 74176; 80048; 80053; 80306; 80320; 81001; 82533; 82550; 83605; 83690; 83735; 84484; 85025; 85610; 85730; 93005; 96361; 96365; 96372; 96375; 99285

== ENCOUNTER 2019-09-04 10:37 | Emergency (ER) | payer OTHER ==
[2019-09-04] MEDS ORDERED: ONDANSETRON 4 MG/2 ML VIAL IVP STA (11:23)
[2019-09-04] MEDS ORDERED: SODIUM CHLORIDE 0.9% 1,000 ML IV STA ×2 (11:23)
--- NOTE | 2019-09-04 11:43 | ED ---
Nausea/Vomiting/Diarrhea HPI - General Chief complaint: Nausea/Vomiting/Diarrhea Stated complaint: Nausea/Vomiting/Dizzy Time Seen by Provider: 09/04/19 11:10 Source: patient, RN notes reviewed Mode of arrival: ambulatory Limitations: no limitations - History of Present Illness Initial comments: Patient 54-year-old male presented to the emergency room today with chief complaint of symptoms of nausea, vomiting over the last 4 days. Patient does admit that he was able to keep down fluids (approximately 2 days ago he says is more difficult time. Patient does admit to some soreness in the abdomen with vomiting. He states is having approximately 10:15 episodes per day. Denies any signs of blood in the emesis. Patient denies any diarrhea. She points her symptoms at this time. Patient denies any recent fever, chills, shortness of breath, chest pain, back pain, numbness or tingling, dysuria or hematuria, constipation or diarrhea, headaches or visual changes, or any other complaints. - Related Data Home Medications Medication Instructions Recorded Confirmed Aspirin EC [Ecotrin Low Dose] 81 mg PO HS 01/06/17 02/05/19 Multivitamins, Thera [Multivitamin 1 tab PO HS 01/06/17 02/05/19 (formulary)] Atorvastatin [Lipitor] 20 mg PO HS 09/19/17 02/05/19 Cholecalciferol [Vitamin D3 (25 5,000 unit PO HS 09/19/17 02/05/19 Mcg = 1000 Iu)] Melatonin 3 mg PO HS 02/21/18 02/05/19 Citalopram Hydrobromide [CeleXA] 60 mg PO DAILY 02/05/19 02/05/19 Glucosam/Jaime-Msm1/C/Campbell/Bosw 1 tab PO DAILY 02/05/19 02/05/19 [Glucosamine-Chondroitin Tablet] Naltrexone HCl [Revia] 50 mg PO DAILY 02/05/19 02/05/19 Redbird-3 Fatty Acids/Fish Oil [Fish 1 cap PO DAILY 02/05/19 02/05/19 Oil 1,000 mg Softgel] Omeprazole [PriLOSEC] 20 mg PO AC-BID 02/05/19 02/05/19 Ondansetron Odt [Zofran ODT] 4 mg PO TID PRN 02/05/19 02/05/19 Thiamine [Vitamin B-1] 50 mg PO DAILY 02/05/19 02/05/19 traZODone HCL 50 mg PO HS PRN 02/05/19 02/05/19 Previous Rx's Medication Instructions Recorded EPINEPHrine (Auto Inject) [Epipen] 0.3 mg IM ONCE PRN #2 syringe 02/21/18 Metoprolol Tartrate [Lopressor] 12.5 mg PO BID #6 dose 02/07/19 Ondansetron Odt [Zofran ODT] 4 mg PO Q8HR PRN #20 tab 09/04/19 Allergies Allergy/AdvReac Type Severity Reaction Status Date / Time bee venom protein (honey bee) Allergy Anaphylaxis Verified 09/04/19 10:56 Sulfa (Sulfonamide Allergy Swelling Verified 09/04/19 10:56 Antibiotics) codeine AdvReac Nausea & Verified 09/04/19 10:56 Vomiting Review of Systems ROS Statement: Those systems with pertinent positive or pertinent negative responses have been documented in the HPI. ROS Other: All systems not noted in ROS Statement are negative. Past Medical History Past Medical History: GERD/Reflux, Hypertension, Liver Disease Additional Past Medical History / Comment(s): seasonal allergies History of Any Multi-Drug Resistant Organisms: None Reported Past Surgical History: Hernia Repair Additional Past Surgical History / Comment(s): umbilical hernia repair 2013 Past Anesthesia/Blood Transfusion Reactions: Postoperative Nausea & Vomiting (PONV) Past Psychological History: No Psychological Hx Reported Smoking Status: Never smoker Past Alcohol Use History: Heavy Past Drug Use History: Prescription Drug Abuse - Past Family History Mother Family Medical History: Cancer, Diabetes Mellitus, Hypertension Additional Family Medical History / Comment(s): nonHodgkins lymphoma Father Family Medical History: Hypertension General Exam - General Exam Comments Initial Comments: General: The patient is awake and alert, in no distress, and does not appear acutely ill. Eye: There is normal conjunctiva bilaterally. No signs of icterus. Ears, nose, mouth and throat: There are moist mucous membranes and no oral lesions. Neck: The neck is supple, there is no tenderness or JVD. Cardiovascular: There is a regular rate and rhythm. No murmur, rub or gallop is appreciated. Respiratory: Lungs are clear to auscultation, respirations are non-labored, breath sounds are equal. No wheezes, stridor, rales, or rhonchi. Gastrointestinal: Soft, non-distended, non-tender abdomen without masses or org anomegaly noted. There is no rebound or guarding present. No CVA tenderness. Musculoskeletal: Normal ROM, no tenderness. Neurological: A&O x 3. CN II-XII intact, There are no obvious motor or sensory deficits. Coordination appears grossly intact. Speech is normal. Skin: Skin is warm and dry and no rashes or lesions are noted. Psychiatric: Cooperative, appropriate mood & affect, normal judgment. Limitations: no limitations Course Vital Signs 09/04/19 09/04/19 10:56 13:51 Temperature 98.7 F 98.0 F Pulse Rate 128 H 102 H Respiratory 20 18 Rate Blood Pressure 145/108 148/102 O2 Sat by Pulse 94 L 98 Oximetry Medical Decision Making - Medical Decision Making EKG performed at 1110: Shows sinus tachycardia 126 bpm. NJ interval 142. QRS 90. QT/QTC 306/443. No acute ST change Patient reexamined at this time is resting over. Does note feeling better here in emergency room after IV fluids, Zofran. Patient labs been reviewed did show mildly elevated liver enzymes and alk phos. A ultrasound was obtained showing hepatomegaly. Patient does admit to a past history of daily drinking. Patient states she's had elevated liver enzymes in the past. At this times doing well feels couple being discharged home. Will be prescription for Zofran./Pulses family doctor next 2 days. Advised to return to emergency room symptoms increase or worsen or for new concerns. Patient states understanding and is in agreement with this plan. - Lab Data Result diagrams: 09/04/19 11:20 09/04/19 11:20 Lab Results 09/04/19 09/04/19 09/04/19 Range/Units 11:20 11:20 11:20 WBC 9.8 (3.8-10.6) k/uL RBC 4.66 (4.30-5.90) m/uL Hgb 14.8 (13.0-17.5) gm/dL Hct 44.8 (39.0-53.0) % MCV 96.1 (80.0-100.0) fL MCH 31.7 (25.0-35.0) pg MCHC 33.0 (31.0-37.0) g/dL RDW 13.6 (11.5-15.5) % Plt Count 160 (150-450) k/uL Neutrophils % 73 % Lymphocytes % 14 % Monocytes % 7 % Eosinophils % 0 % Basophils % 2 % Neutrophils # 7.1 (1.3-7.7) k/uL Lymphocytes # 1.4 (1.0-4.8) k/uL Monocytes # 0.7 (0-1.0) k/uL Eosinophils # 0.0 (0-0.7) k/uL Basophils # 0.2 (0-0.2) k/uL Sodium 140 (137-145) mmol/L Potassium 3.4 L (3.5-5.1) mmol/L Chloride 100 (98-107) mmol/L Carbon Dioxide 22 (22-30) mmol/L Anion Gap 18 mmol/L BUN 10 (9-20) mg/dL Creatinine 1.15 (0.66-1.25) mg/dL Est GFR (CKD-EPI)AfAm 84 (>60 ml/min/1.73 sqM) Est GFR (CKD-EPI)NonAf 72 (>60 ml/min/1.73 sqM) Glucose 117 H (74-99) mg/dL Calcium 9.1 (8.4-10.2) mg/dL Total Bilirubin 1.1 (0.2-1.3) mg/dL AST 78 H (17-59) U/L ALT 54 H (4-49) U/L Alkaline Phosphatase 138 H (38-126) U/L Troponin I <0.012 (0.000-0.034) ng/mL Total Protein 7.6 (6.3-8.2) g/dL Albumin 4.1 (3.5-5.0) g/dL Amylase 86 (30-110) U/L Lipase 296 (23-300) U/L Urine Color Urine Appearance (Clear) Urine pH (5.0-8.0) Ur Specific [place] (1.001-1.035) Urine Protein (Negative) Urine Glucose (UA) (Negative) Urine Ketones (Negative) Urine Blood (Negative) Urine Nitrite (Negative) Urine Bilirubin (Negative) Urine Urobilinogen (<2.0) mg/dL Ur Leukocyte Esterase (Negative) Urine RBC (0-5) /hpf Urine WBC (0-5) /hpf Ur Squamous Epith Cells (0-4) /hpf Hyaline Casts (0-2) /lpf Urine Mucus (None) /hpf 09/04/19 Range/Units 12:46 WBC (3.8-10.6) k/uL RBC (4.30-5.90) m/uL Hgb (13.0-17.5) gm/dL Hct (39.0-53.0) % MCV (80.0-100.0) fL MCH (25.0-35.0) pg MCHC (31.0-37.0) g/dL RDW (11.5-15.5) % Plt Count (150-450) k/uL Neutrophils % % Lymphocytes % % Monocytes % % Eosinophils % % Basophils % % Neutrophils # (1.3-7.7) k/uL Lymphocytes # (1.0-4.8) k/uL Monocytes # (0-1.0) k/uL Eosinophils # (0-0.7) k/uL Basophils # (0-0.2) k/uL Sodium (137-145) mmol/L Potassium (3.5-5.1) mmol/L Chloride (98-107) mmol/L Carbon Dioxide (22-30) mmol/L Anion Gap mmol/L BUN (9-20) mg/dL Creatinine (0.66-1.25) mg/dL Est GFR (CKD-EPI)AfAm (>60 ml/min/1.73 sqM) Est GFR (CKD-EPI)NonAf (>60 ml/min/1.73 sqM) Glucose (74-99) mg/dL Calcium (8.4-10.2) mg/dL Total Bilirubin (0.2-1.3) mg/dL AST (17-59) U/L ALT (4-49) U/L Alkaline Phosphatase (38-126) U/L Troponin I (0.000-0.034) ng/mL Total Protein (6.3-8.2) g/dL Albumin (3.5-5.0) g/dL Amylase (30-110) U/L Lipase (23-300) U/L Urine Color Yellow Urine Appearance Cloudy (Clear) Urine pH 5.5 (5.0-8.0) Ur Specific [place] 1.028 (1.001-1.035) Urine Protein 1+ H (Negative) Urine Glucose (UA) Negative (Negative) Urine Ketones 2+ H (Negative) Urine Blood Negative (Negative) Urine Nitrite Negative (Negative) Urine Bilirubin Negative (Negative) Urine Urobilinogen 4.0 (<2.0) mg/dL Ur Leukocyte Esterase Negative (Negative) Urine RBC <1 (0-5) /hpf Urine WBC 4 (0-5) /hpf Ur Squamous Epith Cells 1 (0-4) /hpf Hyaline Casts 132 H (0-2) /lpf Urine Mucus Many H (None) /hpf Disposition Clinical Impression: Nausea & vomiting Disposition: HOME SELF-CARE Condition: Good Instructions (If sedation given, give patient instructions): Acute Nausea and Vomiting (ED) Additional Instructions: Please use medication as discussed. Please follow-up with family doctor in the next 2 days of symptoms have not improved. Please return to emergency room if the symptoms increase or worsen or for any other concerns. Prescriptions: Ondansetron Odt [Zofran ODT] 4 mg PO Q8HR PRN #20 tab PRN Reason: Nausea Is patient prescribed a controlled substance at d/c from ED?: No Referrals: Kam Heck MD [Primary Care Provider] - 1-2 days Time of Disposition: 14:38
[2019-09-04 11:50] LABS: Basophils # (A) 0.2 k/uL (0-0.2); Basophils % (A) 2 %; Eosinophils % (A) 0 %; HCT 44.8 % (39.0-53.0); HGB 14.8 gm/dL (13.0-17.5); Lymphocytes # (A) 1.4 k/uL (1.0-4.8); Lymphocytes % (A) 14 %; MCH 31.7 pg (25.0-35.0); MCV 96.1 fL (80.0-100.0); Mean Platelet Volume 7.8; Monocytes # (A) 0.7 k/uL (0-1.0); Monocytes % (A) 7 %; Neutrophils # (A) 7.1 k/uL (1.3-7.7); Neutrophils % (A) 73 %; Platelet Count 160 k/uL (150-450); RBC 4.66 m/uL (4.30-5.90); RDW 13.6 % (11.5-15.5); WBC 9.8 k/uL (3.8-10.6)
[2019-09-04 11:57] LABS: Potassium 3.4 mmol/L (3.5-5.1)
[2019-09-04 11:58] LABS: Albumin 4.1 g/dL (3.5-5.0); Calcium 9.1 mg/dL (8.4-10.2); Total Bilirubin 1.1 mg/dL (0.2-1.3); Total Protein 7.6 g/dL (6.3-8.2)
[2019-09-04 13:16] LABS: Appearance,Urine Cloudy (Clear); Bilirubin,Urine Negative (Negative); Blood,Urine Negative (Negative); Color,Urine Yellow; Glucose,Urine (UA) Negative (Negative); Hyaline Casts,Urine 132 /lpf (0-2); Ketones,Urine 2+ (Negative); Leukocyte Esterase,Urine Negative (Negative); Mucus,Urine Many /hpf; Nitrite,Urine Negative (Negative); PH, Urine 5.5 (5.0-8.0); Protein,Urine 1+ (Negative); RBC,Urine <1 /hpf (0-5); Specific Gravity,Urine 1.028 (1.001-1.035); Squamous Epithelial Cell,Urine 1 /hpf (0-4); WBC,Urine 4 /hpf (0-5)
[2019-09-04 13:52] VITALS: TEMP 98
--- NOTE | 2019-09-04 14:24 | US ---
EXAMINATION TYPE: US abdomen limited DATE OF EXAM: 09/04/2019 COMPARISON: NONE CLINICAL HISTORY: pain. EXAM MEASUREMENTS: Liver Length: 19.2 cm Gallbladder Wall: 0.3 cm CBD: 0.4 cm Right Kidney: 11.2 x 5.5 x 5.5 cm Severe overlying bowel gas, patient unable to hold still for test, technically difficult and limited study. Pancreas: Obscured by bowel gas Liver: Increased attenuation, decreased visualization of vessels, enlarged, somewhat limited visuali zation Gallbladder: wnl, as seen, limited views Evidence for sonographic Padilla's sign: no CBD: wnl, limited visualization Right Kidney: No hydronephrosis or masses seen, limited views IMPRESSION: 1. Hepatomegaly with underlying hepatic steatosis.
[2019-09-04 14:50] VITALS: PULSE 112; RESP 16
[2019-09-04 15:01] VITALS: BP 149/104
== END 2019-09-04 15:00 | disposition home or self-care (01) ==
LOC: EC 10:37
DX: R11.2 Nausea with vomiting, unspecified (principal); R00.0 Tachycardia, unspecified; R74.0 Nonspecific elevation of levels of transaminase and lactic acid dehydrogenase [LDH]; R16.0 Hepatomegaly, not elsewhere classified; K21.9 Gastro-esophageal reflux disease without esophagitis; I10 Essential (primary) hypertension; Z88.2 Allergy status to sulfonamides; Z88.5 Allergy status to narcotic agent; Z91.030 Bee allergy status; Z79.82 Long term (current) use of aspirin; Z79.899 Other long term (current) drug therapy; Z98.890 Other specified postprocedural states; Z82.49 Family history of ischemic heart disease and other diseases of the circulatory system
CPT/HCPCS: 36415; 93005; 80053; 82150; 83690; 84484; 85025; 81001; 76705; 99284; 96374; 96361 ×3; J2405

== ENCOUNTER → 2020-03-10 | Outpatient (CLI) | payer OTHER ==
--- NOTE | 2020-03-11 07:46 | MR ---
EXAMINATION TYPE: MR knee LT wo con DATE OF EXAM: 03/10/2020 COMPARISON: NONE HISTORY: Lt knee pain/swelling x 6 mos TECHNIQUE: Multiplanar, multisequence images of the knee is performed without IV contrast. FINDINGS: MEDIAL MENISCUS: Medial extrusion medial meniscus noted on coronal images Anterior horn is intact wit hout tear. Posterior horn shows oblique signal centrally sagittal image 25 extending to inferior sarah cular surface consistent with full-thickness tear. LATERAL MENISCUS: Anterior and posterior horns are intact without tear. CRUCIATE LIGAMENTS: The anterior and posterior cruciate ligaments are intact and unremarkable. COLLATERAL LIGAMENTS: The medial collateral ligament and lateral collateral ligament complex are inta ct and unremarkable. EXTENSOR MECHANISM: Visualized quadriceps and patellar tendons are intact. EFFUSION: No significant suprapatellar joint effusion. POPLITEAL CYST: Small to tiny popliteal/salinas cyst sagittal image 27 for reference. TRICOMPARTMENT SPACES: Moderate narrowing patellofemoral compartment with mild spurring. More mild to moderate narrowing and mild spurring medial greater than lateral tibiofemoral compartments. CARTILAGE: Some chondromalacia patella with thinning of articular cartilage along the inferior aspect of the posterior patellar pole. No full thickness cartilaginous loss. Some thinning of articular car tilage medial tibial femoral compartment best seen on sagittal images BONE MARROW SIGNAL: No focal abnormal marrow signal is appreciated. OTHER: Mild to moderate soft tissue swelling and diffuse subcutaneous edema is noted. IMPRESSION: 1. Full-thickness focal oblique tear posterior horn medial meniscus. 2. Fairly moderate tricompartment degenerative changes greatest patellofemoral compartment as detaile d above. 3. Mild to moderate diffuse soft tissue swelling and subcutaneous edema noted. 4. Small to tiny popliteal cyst.
== END | disposition home or self-care (01) ==
LOC: RADMRIMAIN 20:51
PROVIDERS: ATTEND Nurse Practitioner Family
DX: S83.242A Other tear of medial meniscus, current injury, left knee, initial encounter (principal); M17.12 Unilateral primary osteoarthritis, left knee; M71.22 Synovial cyst of popliteal space [Baker], left knee

== ENCOUNTER 2020-12-27 16:16 | Emergency (ER) | payer OTHER ==
[2020-12-27 17:20] VITALS: RESP 20
[2020-12-27] MEDS ORDERED: SODIUM CHLORIDE 0.9% 1,000 ML IV STA (17:51)
--- NOTE | 2020-12-27 18:05 | ED ---
Head Injury HPI - General Chief complaint: Head Injury Stated complaint: fell, hit head Time Seen by Provider: 12/27/20 17:32 Source: patient, RN notes reviewed Mode of arrival: ambulatory Limitations: no limitations - History of Present Illness Initial comments: Patient is a 55-year-old male that presents to the emergency department with his daughter complaining of falls. Daughter notes the patient is been falling more having difficulty walking in sending weird incoherent texts. Patient notes that he was carrying a laundry basket while wearing his bifocals when he kindly got disoriented fell hit his quaker on the left side on his ottoman and then rolled out of for hit the back of his head on the floor. Daughter notes the patient has drank 1 for local and another alcoholic drink today. Daughter also notes that patient left work around noon thinking at work a full day. Patient denied any pain while sitting up in bed during exam and interview. He was answering questions appropriately. Patient denied any blood thinners or loss of consc iousness. Patient did note that he takes ReVia and is still drinking alcohol the same time. He denied any chest pain shortness of breath headache nausea vomiting diarrhea constipation fever fatigue chills. - Related Data Home Medications Medication Instructions Recorded Confirmed Aspirin EC [Ecotrin Low Dose] 81 mg PO HS 01/06/17 02/05/19 Multivitamins, Thera [Multivitamin 1 tab PO HS 01/06/17 02/05/19 (formulary)] Atorvastatin [Lipitor] 20 mg PO HS 09/19/17 02/05/19 Cholecalciferol [Vitamin D3 (25 5,000 unit PO HS 09/19/17 02/05/19 Mcg = 1000 Iu)] Melatonin 3 mg PO HS 02/21/18 02/05/19 Citalopram Hydrobromide [CeleXA] 60 mg PO DAILY 02/05/19 02/05/19 Glucosam/Jaime-Msm1/C/Campbell/Bosw 1 tab PO DAILY 02/05/19 02/05/19 [Glucosamine-Chondroitin Tablet] Naltrexone HCl [Revia] 50 mg PO DAILY 02/05/19 02/05/19 [place]-3 Fatty Acids/Fish Oil [Fish 1 cap PO DAILY 02/05/19 02/05/19 Oil 1,000 mg Softgel] Omeprazole [PriLOSEC] 20 mg PO AC-BID 02/05/19 02/05/19 Ondansetron Odt [Zofran ODT] 4 mg PO TID PRN 02/05/19 02/05/19 Thiamine [Vitamin B-1] 50 mg PO DAILY 02/05/19 02/05/19 traZODone HCL 50 mg PO HS PRN 02/05/19 02/05/19 Previous Rx's Medication Instructions Recorded EPINEPHrine (Auto Inject) [Epipen] 0.3 mg IM ONCE PRN #2 syringe 02/21/18 Metoprolol Tartrate [Lopressor] 12.5 mg PO BID #6 dose 02/07/19 Ondansetron Odt [Zofran ODT] 4 mg PO Q8HR PRN #20 tab 09/04/19 Allergies/Adverse reactions: Allergies Allergy/AdvReac Type Severity Reaction Status Date / Time bee venom protein (honey bee) Allergy Anaphylaxis Verified 12/27/20 17:20 Sulfa (Sulfonamide Allergy Swelling Verified 12/27/20 17:20 Antibiotics) codeine AdvReac Nausea & Verified 12/27/20 17:20 Vomiting Review of Systems ROS Statement: Those systems with pertinent positive or pertinent negative responses have been documented in the HPI. ROS Other: All systems not noted in ROS Statement are negative. Past Medical History Past Medical History: GERD/Reflux, Hypertension, Liver Disease Additional Past Medical History / Comment(s): seasonal allergies History of Any Multi-Drug Resistant Organisms: None Reported Past Surgical History: Hernia Repair Additional Past Surgical History / Comment(s): umbilical hernia repair 2012 Past Anesthesia/Blood Transfusion Reactions: Postoperative Nausea & Vomiting (PONV) Past Psychological History: No Psychological Hx Reported Smoking Status: Never smoker Past Alcohol Use History: Heavy Past Drug Use History: Prescription Drug Abuse - Past Family History Mother Family Medical History: Cancer, Diabetes Mellitus, Hypertension Additional Family Medical History / Comment(s): nonHodgkins lymphoma Father Family Medical History: Hypertension General Exam Limitations: no limitations General appearance: alert, in no apparent distress, appears intoxicated Head exam: Present: atraumatic, normocephalic, normal inspection Eye exam: Present: normal appearance, PERRL, EOMI. Absent: scleral icterus, conjunctival injection, periorbital swelling Neck exam: Present: normal inspection. Absent: tenderness, lymphadenopathy Respiratory exam: Present: normal lung sounds bilaterally. Absent: respiratory distress, wheezes, rales, rhonchi, stridor Cardiovascular Exam: Present: regular rate, normal rhythm, normal heart sounds. Absent: systolic murmur, diastolic murmur, rubs, gallop, clicks GI/Abdominal exam: Present: soft, normal bowel sounds. Absent: distended, tenderness, guarding, rebound, rigid Extremities exam: Present: normal inspection, full ROM, normal capillary refill. Absent: tenderness, pedal edema, joint swelling, calf tenderness Neurological exam: Present: alert, oriented X3 Expanded Patient oriented to: Present: person, place, time Speech: Present: fluid speech Cranial nerves: EOM's Intact: Normal, Tongue Deviation: Normal, Nystagmus: Normal Cerebellar function: Finger to Nose: Normal, Heel to Stein: Normal Motor strength exam: RUE: 5, LUE: 5, RLE: 5, LLE: 5 Eye Response: (4) open spontaneously Motor Response: (6) obeys commands Verbal Response: (5) oriented Psychiatric exam: Present: normal affect, normal mood Skin exam: Present: warm, dry, intact, normal color. Absent: rash Course Vital Signs 12/27/20 17:17 Temperature 98.0 F Pulse Rate 88 Respiratory 20 Rate Blood Pressure 116/78 O2 Sat by Pulse 95 Oximetry Medical Decision Making - Medical Decision Making 55-year-old male complaining of hitting his quaker and back of his head after falling at home. Labs, EKG, property assessment monitor, CT of the brain and C-spine, chest x-ray, 1 L normal saline ordered. Labs: Hemoglobin 11.7, hematocrit 35.0 be within 5, creatinine 0.59, troponin within normal limits, clotting within normal limits, rest unremarkable.. Imaging negative for any acute process. Case discussed with Dr. Walsh, patient can discharge home follow-up primary care. - Lab Data Result diagrams: 12/27/20 18:19 12/27/20 18:19 Lab Results 12/27/20 12/27/20 12/27/20 Range/Units 18:19 18:19 18:19 WBC 10.2 (3.8-10.6) k/uL RBC 3.68 L (4.30-5.90) m/uL Hgb 11.7 L (13.0-17.5) gm/dL Hct 35.0 L (39.0-53.0) % MCV 95.1 (80.0-100.0) fL MCH 31.8 (25.0-35.0) pg MCHC 33.5 (31.0-37.0) g/dL RDW 15.7 H (11.5-15.5) % Plt Count 283 (150-450) k/uL MPV 7.1 Neutrophils % 70 % Lymphocytes % 20 % Monocytes % 5 % Eosinophils % 3 % Basophils % 1 % Neutrophils # 7.1 (1.3-7.7) k/uL Lymphocytes # 2.0 (1.0-4.8) k/uL Monocytes # 0.6 (0-1.0) k/uL Eosinophils # 0.3 (0-0.7) k/uL Basophils # 0.1 (0-0.2) k/uL PT 10.7 (9.0-12.0) sec INR 1.0 (<1.2) APTT 22.6 (22.0-30.0) sec Sodium 142 (137-145) mmol/L Potassium 3.6 (3.5-5.1) mmol/L Chloride 108 H (98-107) mmol/L Carbon Dioxide 25 (22-30) mmol/L Anion Gap 9 mmol/L BUN 5 L (9-20) mg/dL Creatinine 0.59 L (0.66-1.25) mg/dL Est GFR (CKD-EPI)AfAm >90 (>60 ml/min/1.73 sqM) Est GFR (CKD-EPI)NonAf >90 (>60 ml/min/1.73 sqM) Glucose 115 H (74-99) mg/dL Calcium 8.9 (8.4-10.2) mg/dL Magnesium 2.0 (1.6-2.3) mg/dL Total Bilirubin 0.3 (0.2-1.3) mg/dL AST 32 (17-59) U/L ALT 19 (4-49) U/L Alkaline Phosphatase 64 (38-126) U/L Troponin I (0.000-0.034) ng/mL Total Protein 5.8 L (6.3-8.2) g/dL Albumin 3.1 L (3.5-5.0) g/dL Serum Alcohol 54 mg/dL 12/27/20 Range/Units 18:19 WBC (3.8-10.6) k/uL RBC (4.30-5.90) m/uL Hgb (13.0-17.5) gm/dL Hct (39.0-53.0) % MCV (80.0-100.0) fL MCH (25.0-35.0) pg MCHC (31.0-37.0) g/dL RDW (11.5-15.5) % Plt Count (150-450) k/uL MPV Neutrophils % % Lymphocytes % % Monocytes % % Eosinophils % % Basophils % % Neutrophils # (1.3-7.7) k/uL Lymphocytes # (1.0-4.8) k/uL Monocytes # (0-1.0) k/uL Eosinophils # (0-0.7) k/uL Basophils # (0-0.2) k/uL PT (9.0-12.0) sec INR (<1.2) APTT (22.0-30.0) sec Sodium (137-145) mmol/L Potassium (3.5-5.1) mmol/L Chloride (98-107) mmol/L Carbon Dioxide (22-30) mmol/L Anion Gap mmol/L BUN (9-20) mg/dL Creatinine (0.66-1.25) mg/dL Est GFR (CKD-EPI)AfAm (>60 ml/min/1.73 sqM) Est GFR (CKD-EPI)NonAf (>60 ml/min/1.73 sqM) Glucose (74-99) mg/dL Calcium (8.4-10.2) mg/dL Magnesium (1.6-2.3) mg/dL Total Bilirubin (0.2-1.3) mg/dL AST (17-59) U/L ALT (4-49) U/L Alkaline Phosphatase (38-126) U/L Troponin I <0.012 (0.000-0.034) ng/mL Total Protein (6.3-8.2) g/dL Albumin (3.5-5.0) g/dL Serum Alcohol mg/dL - EKG Data -: EKG Interpreted by Dc EKG shows normal: sinus rhythm Rate: normal EKG Comments: Ventricular rate 75 bpm, [place] interval 140 ms, QRS duration 90 ms, QTC 457 ms, PRT axis 29/13/80. Normal sinus rhythm, normal ECG. - Radiology Data Radiology results: report reviewed, image reviewed Chest x-ray: Inspiration decreased slightly compared to old exam. No pulmonary consolidation heart failure. CT of the brain and C-spine: Negative computed tomography scan of the brain. Mild atrophy. Spondylitic changes in the cervical spine. No fracture. Disposition Clinical Impression: Weakness, Dehydration, Fall Disposition: HOME SELF-CARE Condition: Stable Instructions (If sedation given, give patient instructions): Concussion (ED), Dehydration (ED) Additional Instructions: Please return to the Emergency Department if symptoms worsen or any other conc erns. Follow-up with primary care in the next 1-2 days. Discussed with primary care potential medication reactions. Increase oral fluid intake. Avoid alcohol. Is patient prescribed a controlled substance at d/c from ED?: No Referrals: Kam Heck MD [Primary Care Provider] - 1-2 days Time of Disposition: 19:47
[2020-12-27 18:38] LABS: Basophils # (A) 0.1 k/uL (0-0.2); Basophils % (A) 1 %; Eosinophils # (A) 0.3 k/uL (0-0.7); Eosinophils % (A) 3 %; HGB 11.7 gm/dL (13.0-17.5); Lymphocytes % (A) 20 %; MCH 31.8 pg (25.0-35.0); MCHC 33.5 g/dL (31.0-37.0); MCV 95.1 fL (80.0-100.0); Mean Platelet Volume 7.1; Monocytes # (A) 0.6 k/uL (0-1.0); Monocytes % (A) 5 %; Neutrophils # (A) 7.1 k/uL (1.3-7.7); Neutrophils % (A) 70 %; Platelet Count 283 k/uL (150-450); RBC 3.68 m/uL (4.30-5.90); RDW 15.7 % (11.5-15.5); WBC 10.2 k/uL (3.8-10.6)
[2020-12-27 18:47] LABS: Partial Thromboplastin Time 22.6 sec (22.0-30.0); Prothrombin Time 10.7 sec (9.0-12.0)
[2020-12-27 18:50] LABS: ALT 19 U/L (4-49); AST 32 U/L (17-59); African American GFR (CKD) >90 (>60 ml/min/1.73 sqM); Albumin 3.1 g/dL (3.5-5.0); Alcohol 54 mg/dL; Alkaline Phosphatase 64 U/L (38-126); Anion Gap 9 mmol/L; Blood Urea Nitrogen 5 mg/dL (9-20); Calcium 8.9 mg/dL (8.4-10.2); Carbon Dioxide 25 mmol/L (22-30); Chloride 108 mmol/L (98-107); Glucose 115 mg/dL (74-99); Non-African American GFR(CKD) >90 (>60 ml/min/1.73 sqM); Potassium 3.6 mmol/L (3.5-5.1); Sodium 142 mmol/L (137-145); Total Bilirubin 0.3 mg/dL (0.2-1.3); Total Protein 5.8 g/dL (6.3-8.2)
--- NOTE | 2020-12-27 18:54 | XR ---
EXAMINATION TYPE: XR chest 2V DATE OF EXAM: 12/27/2020 COMPARISON: 02/05/2019 HISTORY: Chest pain TECHNIQUE: 2 views FINDINGS: Heart is normal. Lungs are clear of consolidation. There is no pleural effusion. There is r elative poor inspiration. There is no heart failure. IMPRESSION: Inspiration decreased slightly compared to old exam. No pulmonary consolidation or heart failure.
--- NOTE | 2020-12-27 19:39 | CT ---
EXAMINATION TYPE: CT brain rosaliaine wo con DATE OF EXAM: 12/27/2020 COMPARISON: CT brain 10/05/2010 HISTORY: Pt fall CT DLP: 1591.8 mGycm Automated exposure control for dose reduction was used. There is mild cerebral atrophy. There is no mass effect nor midline shift. There is no sign of intrac ranial hemorrhage. The calvarium is intact. Skull base is intact. There is normal aeration of the mas toid sinuses. The cervical vertebra have Fairly Normal alignment. There is degenerative anterior spurring at C5-6 and C6-7. There is disc space narrowing at C5-6 and C6-7. There is spurring and minimal subluxation a t C3-4. IMPRESSION: Negative CT scan of the brain. Mild atrophy. Spondylotic changes in the cervical spine. No fracture.
[2020-12-27 20:06] VITALS: BP 130/96; PULSE 74; TEMP 98.6
== END 2020-12-27 20:03 | disposition home or self-care (01) ==
LOC: EC 16:16
DX: E86.0 Dehydration (principal); S09.90XA Unspecified injury of head, initial encounter; I10 Essential (primary) hypertension; K21.9 Gastro-esophageal reflux disease without esophagitis; Z79.82 Long term (current) use of aspirin; W01.190A Fall on same level from slipping, tripping and stumbling with subsequent striking against furniture, initial encounter; Y92.009 Unspecified place in unspecified non-institutional (private) residence as the place of occurrence of the external cause
CPT/HCPCS: 70450; 71046; 72125; 80053; 80320; 83735; 84484; 85025; 85610; 85730; 93005; 96360; 96361; 99284

== ENCOUNTER 2021-03-14 15:23 | Inpatient (IN) | payer OTHER ==
[2021-03-14 15:50] LABS: Glucose,Whole Blood 96 mg/dL (75-99)
[2021-03-14] MEDS ORDERED: SODIUM CHLORIDE 0.9% 500 ML 500 ML IV ONE (16:30)
[2021-03-14 16:48] LABS: Basophils # (A) 0.1 k/uL (0-0.2); Basophils % (A) 1 %; Eosinophils % (A) 0 %; HCT 37.3 % (39.0-53.0); HGB 12.3 gm/dL (13.0-17.5); Hypochromasia Slight; Lymphocytes # (A) 1.4 k/uL (1.0-4.8); Lymphocytes % (A) 18 %; MCH 33.6 pg (25.0-35.0); MCHC 32.8 g/dL (31.0-37.0); MCV 102.3 fL (80.0-100.0); Macrocytosis Slight; Mean Platelet Volume 8.1; Monocytes # (A) 0.6 k/uL (0-1.0); Monocytes % (A) 8 %; Neutrophils # (A) 5.5 k/uL (1.3-7.7); Neutrophils % (A) 70 %; Platelet Count 275 k/uL (150-450); RBC 3.65 m/uL (4.30-5.90); RDW 14.8 % (11.5-15.5); WBC 7.8 k/uL (3.8-10.6)
[2021-03-14 16:56] LABS: INR 1.2 (<1.2); Partial Thromboplastin Time 22.5 sec (22.0-30.0); Prothrombin Time 12.1 sec (9.0-12.0)
[2021-03-14 16:58] LABS: Lactic Acid, Venous 1.8 mmol/L (0.7-2.0)
[2021-03-14 17:00] LABS: ALT 44 U/L (4-49); AST 100 U/L (17-59); African American GFR (CKD) >90 (>60 ml/min/1.73 sqM); Albumin 2.8 g/dL (3.5-5.0); Alcohol <10 mg/dL; Alkaline Phosphatase 73 U/L (38-126); Anion Gap 14 mmol/L; Blood Urea Nitrogen 15 mg/dL (9-20); Calcium 8.9 mg/dL (8.4-10.2); Carbon Dioxide 24 mmol/L (22-30); Chloride 115 mmol/L (98-107); Creatine Kinase 999 U/L (55-170); Glucose 95 mg/dL (74-99); Non-African American GFR(CKD) >90 (>60 ml/min/1.73 sqM); Potassium 3.4 mmol/L (3.5-5.1); Sodium 153 mmol/L (137-145); Total Protein 5.6 g/dL (6.3-8.2)
[2021-03-14] MEDS ORDERED: THIAMINE 100 MG/ML 2 ML VIAL IM STA (17:21)
--- NOTE | 2021-03-14 17:21 | XR ---
EXAMINATION TYPE: XR chest 2V DATE OF EXAM: 03/14/2021 COMPARISON: 12/27/2020 HISTORY: Altered mental status TECHNIQUE: 2 views FINDINGS: Heart and mediastinum are normal. Lungs are clear. Diaphragm is normal. Bony thorax appears intact. There is some atelectasis right lung base. There are no hilar masses. IMPRESSION: Minimal subsegmental atelectasis right lung base without change. Normal heart.
--- NOTE | 2021-03-14 17:25 | CT ---
EXAMINATION TYPE: CT brain cspine wo con DATE OF EXAM: 03/14/2021 COMPARISON: 12/27/2020 HISTORY: Fall. Pain CT DLP: 1368.8 mGycm Automated exposure control for dose reduction was used. There is cerebral cortical atrophy. There is no mass effect nor midline shift. There is no sign of in tracranial hemorrhage. Calvarium is intact. Skull base is intact. There is normal aeration of the mas toid sinuses. The cervical vertebra have fairly normal alignment. There is degenerative disc space narrowing at C5- 6 and C6-7 with spurring of the endplates. Facet joints are intact. Prevertebral soft tissues are int act. There is mild cervical facet arthropathy. IMPRESSION: Cerebral atrophy. No acute intracranial abnormality. No adverse change compared to old exam. Spondylotic changes in the cervical spine. No fracture. No change compared to old exam.
--- NOTE | 2021-03-14 17:31 | CT ---
EXAMINATION TYPE: CT facial bones wo con DATE OF EXAM: 03/14/2021 COMPARISON: None HISTORY: Fall. Pain CT DLP: 1368.8 mGycm Automated exposure control for dose reduction was used. Images obtained from the bottom of the mandible to the top of the frontal sinuses without contrast. The mandibular ring is intact. Temporomandibular joints are intact. Zygomatic arches appear normal. N jayy bone is intact. The maxilla is intact. There is some depression of the floor of the left bony orbit. There is no muco michael thickening. The left maxillary sinus is normally aerated. This is probably an old blowout fractur e. Displacement is 4 mm. There is no evidence of retro-orbital mass. The globes are symmetric. There is fairly normal aeration of the paranasal sinuses. There is some fatty infiltration of the submandib ular salivary glands. There is similar change in the parotid glands. IMPRESSION: There is evidence of old blowout fracture of the floor of the left bony orbit. No acute fracture seen .
[2021-03-14] MEDS: LORazepam 2 MG/ML INJ IV PRN ×4 (17:42→23:48)
[2021-03-14] MEDS ORDERED: NALOXONE 0.4 MG/ML 1 ML VIAL IV PRN (18:11)
--- NOTE | 2021-03-14 18:11 | ED ---
Alcohol HPI - General Chief Complaint: Alcohol Stated Complaint: Hypertension Source: patient Mode of arrival: EMS Limitations: altered mental status, physical limitation - History of Present Illness Initial Comments: Patient is a 55-year-old male with past medical history of alcohol abuse, prescription drug abuse who presents emergency Department with altered mental status. EMS states that a neighbor called EMS as the patient was found down at his house. Per EMS he was delirious and living in his own feces. He had a bunch of alcohol bottles lying around him. It was unknown how long the patient had been on the floor. He had multiple bruises in different stages of healing. He has a hematoma to his left eye abrasions to his lower extremities. Patient has been seen in our emergency room for similar complaints. Daughter presents to bedside and states that the patient is a chronic alcoholic and has been in rehab multiple times. She states that she has not seen him in a couple of days but attempts to stay in his life. It is unknown when the patient last drank. The remainder of HPI is limited - Related Data Home Medications Medication Instructions Recorded Confirmed Naltrexone HCl [Revia] 50 mg PO DAILY 02/05/19 03/14/21 traZODone HCL 50 mg PO HS PRN 02/05/19 03/14/21 Gabapentin [Neurontin] 100 mg PO TID 03/14/21 03/14/21 Omeprazole 40 mg PO DAILY 03/14/21 03/14/21 Promethazine HCl 12.5 mg PO DAILY PRN 03/14/21 03/14/21 Vilazodone HCl [Viibryd] 40 mg PO DAILY 03/14/21 03/14/21 amLODIPine BESYLATE/BENAZEPRIL 1 cap PO BID 03/14/21 03/14/21 [amLODIPine BESYLATE/BENAZEPRIL 5-20 MG] tiZANidine HCL 4 mg PO TID 03/14/21 03/14/21 Allergies Allergy/AdvReac Type Severity Reaction Status Date / Time bee venom protein (honey bee) Allergy Anaphylaxis Verified 03/14/21 18:27 lactose Allergy Diarrhea Verified 03/20/21 16:33 Penicillins Allergy Unknown Verified 03/15/21 03:38 Sulfa (Sulfonamide Allergy Swelling Verified 03/14/21 18:27 Antibiotics) codeine AdvReac Nausea & Verified 03/14/21 18:27 Vomiting Review of Systems ROS Statement: Those systems with pertinent positive or pertinent negative responses have been documented in the HPI. ROS Other: All systems not noted in ROS Statement are negative. Past Medical History Past Medical History: GERD/Reflux, Hypertension, Liver Disease Additional Past Medical History / Comment(s): seasonal allergies History of Any Multi-Drug Resistant Organisms: None Reported Past Surgical History: Hernia Repair Additional Past Surgical History / Comment(s): umbilical hernia repair 2013 Past Anesthesia/Blood Transfusion Reactions: Postoperative Nausea & Vomiting (PONV) Past Psychological History: No Psychological Hx Reported Smoking Status: Never smoker Past Alcohol Use History: Heavy Past Drug Use History: Prescription Drug Abuse - Past Family History Mother Family Medical History: Cancer, Diabetes Mellitus, Hypertension Additional Family Medical History / Comment(s): nonHodgkins lymphoma Father Family Medical History: Hypertension General Exam Limitations: altered mental status, physical limitation General appearance: other (confused, disheveled, covered in feces) Eye exam: Present: conjunctival injection ENT exam: Present: mucous membranes dry Respiratory exam: Present: normal lung sounds bilaterally. Absent: respiratory distress, wheezes, rales, rhonchi, stridor Cardiovascular Exam: Present: normal rhythm, tachycardia GI/Abdominal exam: Present: soft, normal bowel sounds. Absent: distended, tenderness, guarding, rebound, rigid Extremities exam: Present: other (multiple abrasions to all 4 extremities in different stages of healing, covered in feces) Neurological exam: Present: altered, other (slurred speech. finger to nose difficult in both extremities. ) Psychiatric exam: Present: agitated Course Vital Signs 03/14/21 03/14/21 03/14/21 15:49 17:51 22:44 Temperature 99.1 F 98.1 F Pulse Rate 101 H 96 72 Respiratory 20 18 18 Rate Blood Pressure 135/73 128/76 124/66 O2 Sat by Pulse 94 L 98 97 Oximetry Medical Decision Making - Medical Decision Making Upon arrival the patient was placed into room 6. A thorough history and physical exam was performed. Patient does have bruising noted over his left arm, bilateral arms and bilateral lower extremities. He is covered in feces. Patient is cleaned up. IV is established and laboratory studies were conducted. He is tremulous in the room and confused therefore did start him on CIWA protocol. Review of the patient's laboratory studies demonstrate a sodium of 153. I did start the patient on half normal saline. Repeat BMP is scheduled for 11 PM. CK is 999. Alcohol is not detected. Chest x-ray demonstrates minimal subsegmental atelectasis on the right lung at the base. CT of the patient's head and cervical spine demonstrates her brought to the, no acute cranial abnormality. No adverse change compared to old. Spondylitic changes in the cervical spine with no acute fractures. CT of the patient's face demonstrates a blowout fracture of the left. Radiologist does believe that this is old however the patient does have acute ecchymosis around the eye. I spoke with the patient's daughter who states that he previously had a fracture around his eye when he was hospitalized earlier this year. As the patient is impending DTs I did recommend admission to the daughter for which she agreed. She would like to obtain guardianship. I will consult social work and case management. I spoke with Dr. Herrera who agreed to admit the patient. Patient currently awaiting a bed on the floor - Lab Data Result diagrams: 03/25/21 07:37 03/25/21 06:36 Lab Results 03/14/21 03/14/21 03/14/21 Range/Units 15:48 16:34 16:34 WBC 7.8 (3.8-10.6) k/uL RBC 3.65 L (4.30-5.90) m/uL Hgb 12.3 L (13.0-17.5) gm/dL Hct 37.3 L (39.0-53.0) % MCV 102.3 H (80.0-100.0) fL MCH 33.6 (25.0-35.0) pg MCHC 32.8 (31.0-37.0) g/dL RDW 14.8 (11.5-15.5) % Plt Count 275 (150-450) k/uL MPV 8.1 Neutrophils % 70 % Lymphocytes % 18 % Monocytes % 8 % Eosinophils % 0 % Basophils % 1 % Neutrophils # 5.5 (1.3-7.7) k/uL Lymphocytes # 1.4 (1.0-4.8) k/uL Monocytes # 0.6 (0-1.0) k/uL Eosinophils # 0.0 (0-0.7) k/uL Basophils # 0.1 (0-0.2) k/uL Hypochromasia Slight Macrocytosis Slight PT 12.1 H (9.0-12.0) sec INR 1.2 H (<1.2) APTT 22.5 (22.0-30.0) sec Sodium (137-145) mmol/L Potassium (3.5-5.1) mmol/L Chloride (98-107) mmol/L Carbon Dioxide (22-30) mmol/L Anion Gap mmol/L BUN (9-20) mg/dL Creatinine (0.66-1.25) mg/dL Est GFR (CKD-EPI)AfAm (>60 ml/min/1.73 sqM) Est GFR (CKD-EPI)NonAf (>60 ml/min/1.73 sqM) Glucose (74-99) mg/dL POC Glucose (mg/dL) 96 (75-99) mg/dL POC Glu Building Equipment Inspector ID Tank Nguyen Plasma Lactic Acid Ori (0.7-2.0) mmol/L Calcium (8.4-10.2) mg/dL Total Bilirubin (0.2-1.3) mg/dL AST (17-59) U/L ALT (4-49) U/L Alkaline Phosphatase (38-126) U/L Ammonia (<30) umol/L Creatine Kinase (55-170) U/L Troponin I (0.000-0.034) ng/mL Total Protein (6.3-8.2) g/dL Albumin (3.5-5.0) g/dL Serum Alcohol mg/dL 03/14/21 03/14/21 03/14/21 Range/Units 16:34 16:34 16:34 WBC (3.8-10.6) k/uL RBC (4.30-5.90) m/uL Hgb (13.0-17.5) gm/dL Hct (39.0-53.0) % MCV (80.0-100.0) fL MCH (25.0-35.0) pg MCHC (31.0-37.0) g/dL RDW (11.5-15.5) % Plt Count (150-450) k/uL MPV Neutrophils % % Lymphocytes % % Monocytes % % Eosinophils % % Basophils % % Neutrophils # (1.3-7.7) k/uL Lymphocytes # (1.0-4.8) k/uL Monocytes # (0-1.0) k/uL Eosinophils # (0-0.7) k/uL Basophils # (0-0.2) k/uL Hypochromasia Macrocytosis PT (9.0-12.0) sec INR (<1.2) APTT (22.0-30.0) sec Sodium 153 H (137-145) mmol/L Potassium 3.4 L (3.5-5.1) mmol/L Chloride 115 H (98-107) mmol/L Carbon Dioxide 24 (22-30) mmol/L Anion Gap 14 mmol/L BUN 15 (9-20) mg/dL Creatinine 0.74 (0.66-1.25) mg/dL Est GFR (CKD-EPI)AfAm >90 (>60 ml/min/1.73 sqM) Est GFR (CKD-EPI)NonAf >90 (>60 ml/min/1.73 sqM) Glucose 95 (74-99) mg/dL POC Glucose (mg/dL) (75-99) mg/dL POC Glu Building Equipment Inspector ID Plasma Lactic Acid Ori 1.8 (0.7-2.0) mmol/L Calcium 8.9 (8.4-10.2) mg/dL Total Bilirubin 1.0 (0.2-1.3) mg/dL AST 100 H (17-59) U/L ALT 44 (4-49) U/L Alkaline Phosphatase 73 (38-126) U/L Ammonia 12 (<30) umol/L Creatine Kinase 999 H (55-170) U/L Troponin I 0.016 (0.000-0.034) ng/mL Total Protein 5.6 L (6.3-8.2) g/dL Albumin 2.8 L (3.5-5.0) g/dL Serum Alcohol <10 mg/dL - EKG Data EKG Comments: EKG demonstrates sinus rhythm with ventricular rate of 75. AZ interval 128. QRS 90. QTC of 431. No acute ST segment elevations or depressions Disposition Clinical Impression: History of alcohol abuse, Alcohol withdrawal delirium, Impending delirium tremens, Blunt head trauma, Orbital fracture, Hypernatremia Disposition: ADMITTED IP TO THIS HOSP Condition: Serious Is patient prescribed a controlled substance at d/c from ED?: No Decision to Admit Reason: Admit from EC Decision Date: 03/14/21 Decision Time: 18:11
[2021-03-14] MEDS: THIAMINE 100 MG TAB PO SCH (19:08)
[2021-03-14] MEDS: SODIUM CHLORIDE 0.45% 1,000 ML IV SCH (19:09)
--- NOTE | 2021-03-14 19:37 | XR ---
EXAMINATION TYPE: XR elbow complete RT DATE OF EXAM: 03/14/2021 COMPARISON: NONE HISTORY: Elbow pain TECHNIQUE: 3 views FINDINGS: There is some spurring on the olecranon process of the ulna. I see no fracture nor dislocat ion. There is no sign of elbow joint effusion. IMPRESSION: Olecranon process spur formation. Posterior soft tissue swelling. No fracture seen.
--- NOTE | 2021-03-14 23:57 | P.HPIM ---
History of Present Illness H&P Date: 03/14/21 Chief Complaint: alcohol abuse and withdrawal 55 y o Male with long history of alcohol abuse Patient was found laying down at his home covered with feces very dirty environment as his home is notable taking care of her daughter and brother at bedside splinting that patient has been going downhill since his divorce back in April he has not been taking care of himself abusing alcohol with frequent hospital admissions for same problem Upon arrival of EMS when he was found by one of the neighbors covered in feces but responsive with empty bottles of alcohol around him be transferred to the hospital upon arrival he was cleaned up and was found to be hallucinating sugge stive of being in DTs for which she was started on benzodiazepines per CIWA scale patient is unable to provide any meaningful history history was obtained by talking to the family at bedside. Patient daughter is hoping that she can get guardianship over him and trying to help him get back on his feet. 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 No other history is available at this time due to patient mental status initial workup in the ED showed microcytic anemia, hypokalemia, hypernatremia. CT of the head no acute pathology CT of the face showed old left orbital fracture inferiorly X-ray of the right elbow showed olecranon process spur with some soft tissue swelling EKG showed sinus rhythm Alcohol level was <10 Review of Systems ROS unobtainable: due to mental status Past Medical History Past Medical History: GERD/Reflux, Hypertension, Liver Disease Additional Past Medical History / Comment(s): seasonal allergies History of Any Multi-Drug Resistant Organisms: None Reported Past Surgical History: Hernia Repair Additional Past Surgical History / Comment(s): umbilical hernia repair 2012 Past Anesthesia/Blood Transfusion Reactions: Postoperative Nausea & Vomiting (PONV) Past Psychological History: No Psychological Hx Reported Smoking Status: Never smoker Past Alcohol Use History: Heavy Past Drug Use History: Prescription Drug Abuse - Past Family History Mother Family Medical History: Cancer, Diabetes Mellitus, Hypertension Additional Family Medical History / Comment(s): nonHodgkins lymphoma Father Family Medical History: Hypertension Medications and Allergies Home Medications Medication Instructions Recorded Confirmed Type Naltrexone HCl [Revia] 50 mg PO DAILY 02/05/19 03/14/21 History traZODone HCL 50 mg PO HS PRN 02/05/19 03/14/21 History Gabapentin [Neurontin] 100 mg PO TID 03/14/21 03/14/21 History Omeprazole 40 mg PO DAILY 03/14/21 03/14/21 History Promethazine HCl 12.5 mg PO DAILY PRN 03/14/21 03/14/21 History Vilazodone HCl [Viibryd] 40 mg PO DAILY 03/14/21 03/14/21 History amLODIPine BESYLATE/BENAZEPRIL 1 cap PO BID 03/14/21 03/14/21 History [amLODIPine BESYLATE/BENAZEPRIL 5-20 MG] tiZANidine HCL 4 mg PO TID 03/14/21 03/14/21 History Allergies Allergy/AdvReac Type Severity Reaction Status Date / Time bee venom protein (honey bee) Allergy Anaphylaxis Verified 03/14/21 18:27 Sulfa (Sulfonamide Allergy Swelling Verified 03/14/21 18:27 Antibiotics) codeine AdvReac Nausea & Verified 03/14/21 18:27 Vomiting Physical Exam Vitals: Vital Signs Temp Pulse Resp BP Pulse Ox 03/14/21 22:44 98.1 F 72 18 124/66 97 03/14/21 17:51 96 18 128/76 98 03/14/21 15:49 99.1 F 101 H 20 135/73 94 L Intake and Output 03/14/21 03/14/21 03/15/21 14:59 22:59 06:59 Other: Weight 99.79 kg Constitutional: Patient clearly confused with auditory and visual hallucinations, however patient is following commands and cooperative Eyes: Anicteric sclerae, moist conjunctiva, Pupils equal round reactive to light ENMT: Bruising around the left eye multiple cuts and wounds over his face Oropharynx clear, no erythema, or exudates Neck: Supple,no masses, or JVD No carotid bruits No thyromegaly Lungs: Clear to auscultation Clear to percussion Normal respiratory effort, no accessory muscle use Cardiovascular: Heart regular in rate and rhythm, No murmurs, gallops, or rubs No peripheral edema Abdominal: Soft Nontender, no guarding, rebound or rigidity Abdomen moving with respiration Normoactive bowel sounds No hepatomegaly, No splenomegaly No palpable mass No abdominal wall hernia noted Skin: Multiple bruising throughout at different stages of healing, multiple cuts and abrasions over bilateral upper and lower extremities however it spares the patient's chest abdomen and back Extremities: No digital cyanosis No clubbing Pedal pulses intact and symmetrical Radial pulses intact and symmetrical No calf tenderness Psychiatric: Alert and oriented to self only Hallucinating Neuro unable to assess proper neurologically however patient is moving all 4 extremities following simple commands Lymphatics: no palpable cervical or supraclavicular , or inguinal lymph nodes Results CBC & Chem 7: 03/14/21 16:34 03/14/21 16:34 Labs: Abnormal Lab Results - Last 24 Hours (Table) 03/14/21 03/14/21 03/14/21 Range/Units 16:34 16:34 16:34 RBC 3.65 L (4.30-5.90) m/uL Hgb 12.3 L (13.0-17.5) gm/dL Hct 37.3 L (39.0-53.0) % MCV 102.3 H (80.0-100.0) fL PT 12.1 H (9.0-12.0) sec INR 1.2 H (<1.2) Sodium 153 H (137-145) mmol/L Potassium 3.4 L (3.5-5.1) mmol/L Chloride 115 H (98-107) mmol/L AST 100 H (17-59) U/L Creatine Kinase 999 H (55-170) U/L Total Protein 5.6 L (6.3-8.2) g/dL Albumin 2.8 L (3.5-5.0) g/dL Assessment and Plan Assessment: Alcohol abuse with alcohol withdrawal syndrome Delirium tremens Plan Benzodiazepines per CIWA scale IV fluid hydration Thiamine Seizure precautions Fall precautions Monitor vital signs Poor living condition Recurrent episodes of hospital admission for alcohol abuse Severo. life stressor with possible major depression Plan Psych consultation leadite worker consultation Macrocytic anemia mild Most likely secondary to alcohol abuse No reported GI bleeding Multiple skin abrasions Left eye bruising Supportive care and wound care No acute fractures identified Hypernatremia most likely with dehydration Close monitoring of sodium will repeat before midnight IV fluid hydration boluses with normal saline then patient will continue on half normal saline For maintenance fluid GI prophylaxis PPI CODE STATUS: Full code DVT prophylaxis: Mechanical Discussed with: Patient, ER, RN Anticipated length of stay more than [address]: Pending clinical course A total of 65 minutes was spent on the care of this complex patient more than 50% of the time was spent in counseling and care coordination. Patient daughter Starla would like to be contacted and updated at [phone]
[2021-03-14 23:58] LABS: African American GFR (CKD) >90 (>60 ml/min/1.73 sqM); Anion Gap 13 mmol/L; Blood Urea Nitrogen 14 mg/dL (9-20); Calcium 8.3 mg/dL (8.4-10.2); Carbon Dioxide 25 mmol/L (22-30); Chloride 114 mmol/L (98-107); Glucose 95 mg/dL (74-99); Non-African American GFR(CKD) >90 (>60 ml/min/1.73 sqM); Potassium 3.2 mmol/L (3.5-5.1); Sodium 152 mmol/L (137-145)
[2021-03-15] MEDS: LORazepam 2 MG/ML INJ IV PRN ×13 (01:38→22:57)
[2021-03-15] MEDS: POTASSIUM CHLORIDE 10 MEQ in WATER FOR INJECTION 1 100ML.BAG IVPB SCH ×3 (01:41→03:49)
[2021-03-15] MEDS: PANTOPRAZOLE 40 MG TABLET PO SCH (06:59)
[2021-03-15] MEDS: THIAMINE 100 MG TAB PO SCH ×2 (06:59→16:50)
[2021-03-15] MEDS ORDERED: POTASSIUM CHLORIDE ER 20 MEQ TAB.ER PO STA (07:31)
[2021-03-15] MEDS: ENOXAPARIN 40 MG/0.4 ML SYRINGE SQ SCH (08:53)
[2021-03-15] MEDS: lisinopriL 10 MG TAB PO SCH (08:53)
[2021-03-15] MEDS: amLODIPine 5 MG TAB PO SCH ×2 (08:53→21:04)
[2021-03-15 09:18] LABS: African American GFR (CKD) >90 (>60 ml/min/1.73 sqM); Anion Gap 8 mmol/L; Blood Urea Nitrogen 11 mg/dL (9-20); Calcium 8.1 mg/dL (8.4-10.2); Carbon Dioxide 27 mmol/L (22-30); Chloride 115 mmol/L (98-107); Glucose 89 mg/dL (74-99); Non-African American GFR(CKD) >90 (>60 ml/min/1.73 sqM); Potassium 3.3 mmol/L (3.5-5.1); Sodium 150 mmol/L (137-145)
[2021-03-15 09:22] LABS: Basophils # (A) 0.1 k/uL (0-0.2); Basophils % (A) 1 %; Eosinophils # (A) 0.1 k/uL (0-0.7); Eosinophils % (A) 2 %; HCT 37.4 % (39.0-53.0); HGB 12.2 gm/dL (13.0-17.5); Lymphocytes # (A) 1.6 k/uL (1.0-4.8); Lymphocytes % (A) 24 %; MCH 33.5 pg (25.0-35.0); MCHC 32.6 g/dL (31.0-37.0); MCV 102.8 fL (80.0-100.0); Macrocytosis Slight; Mean Platelet Volume 7.7; Monocytes # (A) 0.4 k/uL (0-1.0); Monocytes % (A) 7 %; Neutrophils # (A) 4.5 k/uL (1.3-7.7); Neutrophils % (A) 65 %; Platelet Count 262 k/uL (150-450); RBC 3.64 m/uL (4.30-5.90); RDW 14.9 % (11.5-15.5); WBC 6.8 k/uL (3.8-10.6)
[2021-03-15] MEDS: SODIUM CHLORIDE 0.45% 1,000 ML IV SCH (10:42)
--- NOTE | 2021-03-15 12:22 | P.PN ---
Subjective Progress Note Date: 03/15/21 Patient was seen and evaluated by me this morning. He was shaking and having visual hallucinations the time of my evaluation. Nursing staff informed me that he has been getting IV Ativan around the clock. Patient is able to answer simple questions and has multiple bruises all over his body Objective - Vital Signs Vital signs: Vital Signs Temp 97.8 F 03/15/21 11:42 Pulse 86 03/15/21 11:42 Resp 16 03/15/21 11:42 BP 136/77 03/15/21 11:42 Pulse Ox 94 L 03/15/21 11:42 Intake & Output 03/14/21 03/15/21 03/15/21 18:59 06:59 18:59 Intake Total 520 Balance 520 Weight 99.79 kg 99.79 kg Intake: Oral 520 Other: Voiding Method Diaper Diaper # Voids 1 1 # Bowel Movements 1 - Exam General: The patient is awake and alert, in no distress Eye: there is normal conjunctiva bilaterally. Neck: The neck is supple, there is no JVD. Cardiovascular: Normal S1-S2, no S3-S4, no murmurs. Respiratory: Lungs clear to auscultation bilaterally Gastrointestinal: Abdomen is soft, nontender Musculoskeletal: There is no pedal edema. Neurological:. Speech is normal. Skin: Skin is warm and dry - Labs CBC & Chem 7: 03/15/21 08:27 03/15/21 08:27 Labs: Abnormal Lab Results - Last 24 Hours (Table) 03/14/21 03/14/21 03/14/21 Range/Units 16:34 16:34 16:34 RBC 3.65 L (4.30-5.90) m/uL Hgb 12.3 L (13.0-17.5) gm/dL Hct 37.3 L (39.0-53.0) % MCV 102.3 H (80.0-100.0) fL PT 12.1 H (9.0-12.0) sec INR 1.2 H (<1.2) Sodium 153 H (137-145) mmol/L Potassium 3.4 L (3.5-5.1) mmol/L Chloride 115 H (98-107) mmol/L Creatinine (0.66-1.25) mg/dL Calcium (8.4-10.2) mg/dL AST 100 H (17-59) U/L Creatine Kinase 999 H (55-170) U/L Total Protein 5.6 L (6.3-8.2) g/dL Albumin 2.8 L (3.5-5.0) g/dL 03/14/21 03/15/21 03/15/21 Range/Units 23:15 08:27 08:27 RBC 3.64 L (4.30-5.90) m/uL Hgb 12.2 L (13.0-17.5) gm/dL Hct 37.4 L (39.0-53.0) % MCV 102.8 H (80.0-100.0) fL PT (9.0-12.0) sec INR (<1.2) Sodium 152 H 150 H (137-145) mmol/L Potassium 3.2 L 3.3 L (3.5-5.1) mmol/L Chloride 114 H 115 H (98-107) mmol/L Creatinine 0.62 L (0.66-1.25) mg/dL Calcium 8.3 L 8.1 L (8.4-10.2) mg/dL AST (17-59) U/L Creatine Kinase (55-170) U/L Total Protein (6.3-8.2) g/dL Albumin (3.5-5.0) g/dL Assessment and Plan Assessment: This is a 55-year-old male was brought into the emergency room after he was found by one of the neighbors covered in feces but responsive with empty bottles of alcohol around him be transferred to the hospital upon arrival he was cleaned up and was found to be hallucinating suggestive of being in DTs for which she was started on benzodiazepines per CIWA scale. CT of the head no acute pathology CT of the face showed old left orbital fracture inferiorly X-ray of the right elbow showed olecranon process spur with some soft tissue swelling EKG showed sinus rhythm Alcohol level was <10 Assessment: Alcohol abuse with alcohol withdrawal syndrome Delirium tremens Rhabdomyolysis Plan Benzodiazepines per CIWA scale Height value of 5 mg 3 times a day IV fluid hydration Thiamine Seizure precautions Fall precautions Monitor vital signs Poor living condition Recurrent episodes of hospital admission for alcohol abuse Severo. life stressor with possible major depression Plan Psych consultation black ash worker consultation Macrocytic anemia mild Most likely secondary to alcohol abuse No reported GI bleeding Multiple skin abrasions Left eye bruising Supportive care and wound care No acute fractures identified Hypernatremia most likely with dehydration Close monitoring of sodium will repeat before midnight Change IV fluid to D5/half-normal saline GI prophylaxis PPI CODE STATUS: Full code DVT prophylaxis: Mechanical Discussed with: Patient, ER, RN Anticipated length of stay more than [address]: Pending clinical course A total of 65 minutes was spent on the care of this complex patient more than 50% of the time was spent in counseling and care coordination.
[2021-03-15] MEDS: diazePAM 5 MG TAB PO SCH ×3 (12:57→21:04)
[2021-03-15] MEDS: DEXTROSE 5%-0.45% NACL 1,000 ML IV SCH ×3 (15:17→22:52)
[2021-03-16] MEDS: LORazepam 2 MG/ML INJ IV PRN ×10 (00:30→20:18)
[2021-03-16] MEDS: THIAMINE 100 MG TAB PO SCH ×2 (06:15→09:00)
[2021-03-16] MEDS: PANTOPRAZOLE 40 MG TABLET PO SCH (06:15)
[2021-03-16] MEDS: DEXTROSE 5%-0.45% NACL 1,000 ML IV SCH ×2 (06:16→23:10)
[2021-03-16 08:27] LABS: African American GFR (CKD) >90 (>60 ml/min/1.73 sqM); Anion Gap 4 mmol/L; Blood Urea Nitrogen 5 mg/dL (9-20); Calcium 7.9 mg/dL (8.4-10.2); Carbon Dioxide 28 mmol/L (22-30); Chloride 113 mmol/L (98-107); Creatine Kinase 217 U/L (55-170); Glucose 114 mg/dL (74-99); Magnesium 1.8 mg/dL (1.6-2.3); Non-African American GFR(CKD) >90 (>60 ml/min/1.73 sqM); Potassium 3.1 mmol/L (3.5-5.1); Sodium 145 mmol/L (137-145)
[2021-03-16] MEDS: ENOXAPARIN 40 MG/0.4 ML SYRINGE SQ SCH (09:00)
[2021-03-16] MEDS: lisinopriL 10 MG TAB PO SCH (09:00)
[2021-03-16] MEDS: diazePAM 5 MG TAB PO SCH ×3 (09:00→23:10)
[2021-03-16] MEDS: amLODIPine 5 MG TAB PO SCH ×2 (09:00→20:19)
[2021-03-16] MEDS ORDERED: POTASSIUM CHLORIDE ER 10 MEQ TAB.ER.PRT PO STA (11:15)
[2021-03-16] MEDS ORDERED: POTASSIUM CHLORIDE ER 20 MEQ TAB.ER PO STA ×2 (11:15→13:34)
--- NOTE | 2021-03-16 11:24 | P.PN ---
Subjective Progress Note Date: 03/16/21 Patient is still very confused. He is still in soft restraints. Patient is awake and alert and oriented to himself. His having active hallucination according to nursing staff. He has been getting Valium since admission and IV Ativan per [facility] protocol. He did not receive any IV Ativan since this morning. Objective - Vital Signs Vital signs: Vital Signs Temp 98.5 F 03/16/21 08:00 Pulse 108 H 03/16/21 08:00 Resp 16 03/16/21 08:00 BP 126/80 03/16/21 08:00 Pulse Ox 94 L 03/16/21 08:00 Intake & Output 03/15/21 03/16/21 03/16/21 18:59 06:59 18:59 Intake Total 1220 60 Balance 1220 60 Weight 99.79 kg Intake: Oral 1220 60 Other: Voiding Method Diaper Diaper Diaper # Voids 1 1 # Bowel Movements 1 1 - Exam General: The patient is awake and alert, in no distress Eye: there is normal conjunctiva bilaterally. Neck: The neck is supple, there is no JVD. Cardiovascular: Normal S1-S2, no S3-S4, no murmurs. Respiratory: Lungs clear to auscultation bilaterally Gastrointestinal: Abdomen is soft, nontender Musculoskeletal: There is no pedal edema. Neurological:. Speech is normal. Skin: Skin is warm and dry - Labs CBC & Chem 7: 03/15/21 08:27 03/16/21 07:53 Labs: Abnormal Lab Results - Last 24 Hours (Table) 03/16/21 Range/Units 07:53 Potassium 3.1 L (3.5-5.1) mmol/L Chloride 113 H (98-107) mmol/L BUN 5 L (9-20) mg/dL Creatinine 0.53 L (0.66-1.25) mg/dL Glucose 114 H (74-99) mg/dL Calcium 7.9 L (8.4-10.2) mg/dL Creatine Kinase 217 H (55-170) U/L Assessment and Plan Assessment: This is a 55-year-old male was brought into the emergency room after he was found by one of the neighbors covered in feces but responsive with empty bottles of alcohol around him be transferred to the hospital upon arrival he was cleaned up and was found to be hallucinating suggestive of being in DTs for which she was started on benzodiazepines per CIWA scale. CT of the head no acute pathology CT of the face showed old left orbital fracture inferiorly X-ray of the right elbow showed olecranon process spur with some soft tissue swelling EKG showed sinus rhythm Alcohol level was <10 Assessment: Alcohol abuse with alcohol withdrawal syndrome Delirium tremens Rhabdomyolysis Encephalopathy with hallucinations Plan Benzodiazepines per CIWA scale Valium 5 mg 3 times a day IV fluid hydration Thiamine Seizure precautions Fall precautions Computed tomography scan of the head showed no acute findings. Consults neurology and psychiatry for further evaluation Poor living condition Recurrent episodes of hospital admission for alcohol abuse Severo. life stressor with possible major depression Plan Psych consultation site worker consultation Macrocytic anemia mild Most likely secondary to alcohol abuse No reported GI bleeding Multiple skin abrasions Left eye bruising Supportive care and wound care No acute fractures identified Hypernatremia most likely with dehydration Improved with IV fluid Yesterday, I spoke to his daughter over the phone. She told me that patient has normal mentation usually this is completely not him. GI prophylaxis PPI CODE STATUS: Full code DVT prophylaxis: Mechanical Discussed with: Patient, ER, RN Anticipated length of stay more than [address]: Pending clinical course A total of 65 minutes was spent on the care of this complex patient more than 50% of the time was spent in counseling and care coordination.
[2021-03-16 12:53] LABS: Glucose,Whole Blood 109 mg/dL (75-99)
--- NOTE | 2021-03-16 14:10 | P.CN ---
Psychiatric Consult - . Consult date: 03/16/21 Consult:: 03/16/21 14:09 IDENTIFYING DATA: This patient is a employed, , 55-year-old male admitted for altered mental status in the context of heavy alcohol use. HISTORY OF PRESENT ILLNESS: The patient presented to the hospital on 03/14/21, brought in by EMS after the neighbor found the patient on the floor in his house. He was noted to be delirious and covered in his own feces. The patient was also noted to have a bunch of alcohol bottles around him. It is unknown how long the patient to be on the floor. He was also noted to have multiple bruises in different stages of healing as well as a hematoma to the left eye and abrasions to his lower extremities. The patient is noted to have visited this emergency department multiple times for similar complaints. History provided by the patient's daughter to the emergency room physician stated that the patient is a chronic alcoholic and has been to rehabilitation multiple times. It is uncertain how long it has been since the patient's last drink. Psychiatry has been consulted for hallucinations. The patient has been noted by staff to be quite delirious, disorganized, disoriented, and responding to internal stimuli. He appeared to be reaching and objects that were not present and speaking to people that were not there. The patient is currently wearing mitts for his protection. The patient is grossly disorganized at this time and is unable to provide any clear or coherent history. Collateral information from the patient's daughter reveal that the patient has had long standing issues with anxiety. The patient's mother a year ago and the patient's substance use and mood has significantly worsened. She states he has had history of hallucinations including "seeing the dog crawl up the kirk." His house is noted by his daughter to be uninhabitable due to the condition it is in. She states that it is like an episode of "hoarders." He has a history of marijuana and alcohol use. 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 PAST PSYCHIATRIC HISTORY: Review of the patient's home medications reveal that he is prescribed gabapentin, naltrexone, trazodone, and Viibryd. Patient's daughter report he has significant issues with anxiety. His medication regimen is often used for management of depression, alcohol use disorder, and insomnia. PAST MEDICAL HISTORY: Past Medical History: GERD/Reflux, Hypertension, Liver Disease Additional Past Medical History / Comment(s): seasonal allergies History of Any Multi-Drug Resistant Organisms: None Reported Past Surgical History: Hernia Repair Additional Past Surgical History / Comment(s): umbilical hernia repair 2012 Past Anesthesia/Blood Transfusion Reactions: Postoperative Nausea & Vomiting (PONV) Past Psychological History: No Psychological Hx Reported Smoking Status: Never smoker Past Alcohol Use History: Heavy Past Drug Use History: Prescription Drug Abuse ALLERGIES: bee venom, penicillins, sulfa, codeine CHEMICAL DEPENDENCY HISTORY: Alcohol is drug of choice. He would drink daily as per daughter. FAMILY PSYCHIATRIC/SUBSTANCE USE HISTORY: As per daughter, the patient's brother has severe depression and alcohol use disorder. He also attempted suicide in the past. SOCIAL HISTORY: Patient is currently . He was twice. He has been from his second 2 years ago. He quit going to work and began rehabilitation. Went to [facility] for rehab at the suggestion of his daughter. MENTAL STATUS EXAM: General Appearance: Patient appears to be disheveled, wearing mitts, has a noticeable abrasion on his face. Behavior: Patient is disorganized and appears to respond to internal stimuli. Speech: Patient's speech is dysarthric, and nonspontaneous. Mood/Affect: Unable to assess Suicidality/Homicidality: Unable to assess Perceptions: Patient is responding to internal stimuli. Though content/process: Grossly disorganized Memory and concentration: Poor. Judgment and insight: Very poor. IMPRESSIONS: Acute Alcohol withdrawal Alcohol Hallucinosis vs Delirium Tremens Alcohol Use Disorder, severe PLAN: -At this time patient DOES NOT meet criteria for inpatient psychiatric admission. -Patient DOES NOT have decision making capacity at this time and is unable to reason through and communicate/appreciate the risks, benefits and alternatives to treatment. -Delirium precautions recommended with patient including - avoiding use of narcotics and PURCHASING SUPERVISOR sedatives, limit anticholinergic medications when possible, frequent re-orientation, minimize use of restraints, open window shades during the day and close them at night -Would recommend the following medication changes/additions: Increase Valium 10 mg QID for withdrawal management. -Will continue to follow along 03/16/21 14:09
[2021-03-16 16:48] LABS: Glucose,Whole Blood 106 mg/dL (75-99)
[2021-03-16 19:21] LABS: Appearance,Urine Clear (Clear); Bilirubin,Urine Negative (Negative); Blood,Urine Negative (Negative); Color,Urine Yellow; Glucose,Urine (UA) Trace (Negative); Ketones,Urine Negative (Negative); Leukocyte Esterase,Urine Negative (Negative); Nitrite,Urine Negative (Negative); PH, Urine 5.5 (5.0-8.0); Protein,Urine Trace (Negative); Specific Gravity,Urine 1.015 (1.001-1.035)
[2021-03-16 19:27] LABS: Amphetamine Screen,Urine Not Detected (NotDetected); Barbiturate Screen,Urine Not Detected (NotDetected); Benzodiazepines Screen,Urine Detected (NotDetected); Cocaine Screen,Urine Not Detected (NotDetected); Methadone Screen, Urine Not Detected (NotDetected); Opiate Screen,Urine Not Detected (NotDetected); Oxycodone Screen, Urine Not Detected (NotDetected); Phencyclidine Screen,Urine Not Detected (NotDetected); Tricyclic Antidepressant,Urine Not Detected (NotDetected); Urn Cannabinoid Scrn Detected (NotDetected)
--- NOTE | 2021-03-16 23:31 | P.CNNES ---
History of Present Illness Consult date: 03/16/21 Requesting physician: Petra Horn Reason for Consult: Altered mental status, history of heavy alcohol abuse History of Present Illness: Patient is a 55-year-old male came to the hospital by ambulance on 03/14/2021 at 3:23 PM for altered mental status, possible episode of unresponsiveness and history of alcoholism. As per EMS flow sheet, when they arrived, patient was laying in fecal matter dry head to toe. Several bruising inferior/superior lower extremities bilaterally, and also the thigh and chest and upper extremities. Patient has a black right eye. Patient has mentioned that he has been falling a lot recently. Patient admits to alcohol use and alcohol abuse and several empty and full container scattered throughout the home. EMS was called and friend stopped by and hadn't heard from the patient in a while. Patient does have history of diabetes, hypertension, alcohol abuse. His blood glucose was 119. Benedict stroke scale was negative. Patient was able to tell his name and birthday but could not tell the date month or the year. Patient's vitals at the scene was blood pressure 137/103, pulse rate 114, respiration 14, saturation 96% and blood glucose 119. Patient's blood test shows WBC 7.8 hemoglobin 12.3 with elevated MCV 102.3. Platelets are normal. INR 1.2. Sodium was 153, potassium 3.4, normal renal functions. CK was 999, which is down to 217. Troponin negative. AST was 100, ALT normal 44. Blood alcohol level negative. Computed tomography scan of the head showed cerebral atrophy, no acute process. CT of the cervical spine shows spondylotic changes in the cervical spine. No fracture. EKG shows sinus rhythm with marked sinus arrhythmia. Nonspecific ST-T wave abnormality. CT of the facial bones revealed evidence of old blowout fracture of the floor of the left bony orbit. No acute fracture. X-ray of the elbow showed Olecranon process spur formation. Posterior soft tissue swelling. No fracture. Patient's home medication includes trazodone 50 mg, naltrexone, omeprazole, gabapentin 100 mg 3 times a day, Zanaflex 4 mg 3 times a day, amlodipine/benazep ril, Vilazodone. Patient's friend was present today, who apparently called the EMS. 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 She states patient has hypertension, alcoholism for the last 4 years that she knows him. He binges off and on, which could be for weeks to months. He has been in rehab twice. He does not have diabetes. He has 2 other brothers, 1 sister and dad who is alive. He also has a daughter. She also states that patient suffered from a fall and hit his head hard about a week ago. Patient and his friend usually do not talk on the phone, but the text each other frequently. Patient apparently called in sick on Sunday. Over the weekend, she tried to text him but he did not answer which is unusual. Because of his history of alc oholism, she got concerned and went to his home, and the door was open and she saw him on the floor of the bedroom, where he does not typically sleep. She then called the ambulance as above. He was also noted to have multiple bruises in different stages of healing as well as a hematoma to the right eye and abrasions to his lower extremities. The patient is noted to have visited this e mergency department multiple times for similar complaints. The patient has been noted by staff to be quite delirious, disorganized, disoriented, and responding to internal stimuli. He appeared to be reaching and objects that were not present and speaking to people that were not there. The patient is currently wearing mitts for his protection. The patient is grossly disorganized at this time and is unable to provide any clear or coherent history. His house is noted by his daughter to be uninhabitable due to the condition it is in. She states that it is like an episode of "hoarders." He has a history of marijuana and alcohol use. 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 Review of Systems ROS unobtainable: due to mental status Past Medical History Past Medical History: GERD/Reflux, Hypertension, Liver Disease Additional Past Medical History / Comment(s): seasonal allergies History of Any Multi-Drug Resistant Organisms: None Reported Past Surgical History: Hernia Repair Additional Past Surgical History / Comment(s): umbilical hernia repair 2013 Past Anesthesia/Blood Transfusion Reactions: Postoperative Nausea & Vomiting (PONV) Past Psychological History: No Psychological Hx Reported Smoking Status: Never smoker Past Alcohol Use History: Heavy Past Drug Use History: Prescription Drug Abuse - Past Family History Mother Family Medical History: Cancer, Diabetes Mellitus, Hypertension Additional Family Medical History / Comment(s): nonHodgkins lymphoma Father Family Medical History: Hypertension Medications and Allergies Home Medications Medication Instructions Recorded Confirmed Type Naltrexone HCl [Revia] 50 mg PO DAILY 02/05/19 03/14/21 History traZODone HCL 50 mg PO HS PRN 02/05/19 03/14/21 History Gabapentin [Neurontin] 100 mg PO TID 03/14/21 03/14/21 History Omeprazole 40 mg PO DAILY 03/14/21 03/14/21 History Promethazine HCl 12.5 mg PO DAILY PRN 03/14/21 03/14/21 History Vilazodone HCl [Viibryd] 40 mg PO DAILY 03/14/21 03/14/21 History amLODIPine BESYLATE/BENAZEPRIL 1 cap PO BID 03/14/21 03/14/21 History [amLODIPine BESYLATE/BENAZEPRIL 5-20 MG] tiZANidine HCL 4 mg PO TID 03/14/21 03/14/21 History Allergies Allergy/AdvReac Type Severity Reaction Status Date / Time bee venom protein (honey bee) Allergy Anaphylaxis Verified 03/14/21 18:27 Penicillins Allergy Unknown Verified 03/15/21 03:38 Sulfa (Sulfonamide Allergy Swelling Verified 03/14/21 18:27 Antibiotics) codeine AdvReac Nausea & Verified 03/14/21 18:27 Vomiting Physical Examination - Vital Signs Vital Signs: Vital Signs Temp Pulse Resp BP Pulse Ox 03/16/21 08:00 98.5 F 108 H 16 126/80 94 L 03/16/21 03:20 99.7 F H 108 H 16 127/71 96 03/16/21 00:00 99.3 F 92 18 135/78 95 03/15/21 20:00 98.3 F 92 20 126/79 95 03/15/21 16:00 16 03/15/21 14:00 86 14 Intake and Output 03/15/21 03/16/21 03/16/21 22:59 06:59 14:59 Intake Total 180 60 Balance 180 60 Intake: Oral 180 60 Other: Voiding Method Diaper Diaper Diaper # Voids 1 1 1 # Bowel Movements 1 Patient is a middle aged male, appears older than his stated age. Patient is groggy, encephalopathic, does not answer questions. He does open his eyes, makes eye contact, but spoke very little if at all. Speech and language functions could not be assessed. Attention, concentration and fund of knowledge could not be assessed. On cranial examination, pupils are round and reacting to light, visual licea could not be tested. His extraocular muscles appears intact, no obvious gaze preference. Face is symmetric, tongue protrudes to the midline. No evidence of oral trauma. Palatal elevation and sensation could not be tested. Hearing, facial sensation and shoulder shrug could not be tested. On muscle strength testing, patient did not cooperate with examination. His tone is equal bilaterally. On manually lifting his arms, he drops both arms equally down. No obvious flaccidity. Deep tendon reflexes are 2 in the upper limbs at biceps and brachioradialis, no response at the knees, trace ankles and plantar is probable downgoing bilaterally. Sensory patient withdraws to painful stimuli equally. Cerebellar function could not be tested. Gait cannot be tested. On general examination, there is no carotid bruit or murmur, S1-S2 audible. Ab domen is soft nontender. Chest is clear. Peripheral pulses are present. Patient has evidence of right black eye. He has multiple scratches, bruises over his arms and legs and the knees. There is evidence of pressure sore over the right lateral knee region. Results - Laboratory Findings CBC and BMP: 03/15/21 08:27 03/16/21 07:53 Abnormal Lab Findings: Abnormal Labs 03/14/21 03/14/21 03/14/21 16:34 16:34 16:34 RBC 3.65 L Hgb 12.3 L Hct 37.3 L MCV 102.3 H PT 12.1 H INR 1.2 H Sodium 153 H Potassium 3.4 L Chloride 115 H BUN Creatinine Glucose Calcium AST 100 H Creatine Kinase 999 H Total Protein 5.6 L Albumin 2.8 L 03/14/21 03/15/21 03/15/21 23:15 08:27 08:27 RBC 3.64 L Hgb 12.2 L Hct 37.4 L MCV 102.8 H PT INR Sodium 152 H 150 H Potassium 3.2 L 3.3 L Chloride 114 H 115 H BUN Creatinine 0.62 L Glucose Calcium 8.3 L 8.1 L AST Creatine Kinase Total Protein Albumin 03/16/21 07:53 RBC Hgb Hct MCV PT INR Sodium Potassium 3.1 L Chloride 113 H BUN 5 L Creatinine 0.53 L Glucose 114 H Calcium 7.9 L AST Creatine Kinase 217 H Total Protein Albumin Assessment and Plan Assessment: * 55-year-old male with history of alcoholism, was found at laying with fecal matter with multiple bruises, scratches and pressure sores over dependent areas, indicating patient has been on the floor for fairly long period of ti me. Last period of contact with his friends was on Sunday, 3 days prior to arrival. Patient was soiled with faces. Patient has not improved clinically since yesterday, continues to be significantly delirious/encephalopathic. Probable alcohol withdrawal/DTs/alcoholic hallucinosis, rule out infectious process, although he is afebrile and white cells are normal. * Hypertension * History of alcoholism * History of marijuana use. Plan: * Per nursing report, patient has not improved clinically since yesterday. * I would suggest lumbar puncture to rule out any intracranial infectious process. * EEG rule out any epileptiform activity. * Carotid Doppler. * B12, folate, TSH, MMA, B6, RPR. * Thiamine, folate. [facility] protocol. * Psychiatry also following the patient. * We will follow clinically.
[2021-03-17] MEDS: LORazepam 2 MG/ML INJ IV PRN ×4 (01:33→17:36)
[2021-03-17] MEDS: PANTOPRAZOLE 40 MG TABLET PO SCH (06:10)
[2021-03-17] MEDS: THIAMINE 100 MG TAB PO SCH ×2 (06:11→17:51)
[2021-03-17 07:34] LABS: Basophils # (A) 0.1 k/uL (0-0.2); Basophils % (A) 1 %; Eosinophils # (A) 0.2 k/uL (0-0.7); Eosinophils % (A) 2 %; HGB 12.2 gm/dL (13.0-17.5); Lymphocytes # (A) 1.6 k/uL (1.0-4.8); Lymphocytes % (A) 18 %; MCH 34.2 pg (25.0-35.0); MCHC 33.9 g/dL (31.0-37.0); MCV 100.8 fL (80.0-100.0); Macrocytosis Slight; Mean Platelet Volume 7.7; Monocytes # (A) 0.6 k/uL (0-1.0); Monocytes % (A) 6 %; Neutrophils # (A) 6.3 k/uL (1.3-7.7); Neutrophils % (A) 71 %; Platelet Count 263 k/uL (150-450); RBC 3.57 m/uL (4.30-5.90); RDW 15.1 % (11.5-15.5); WBC 8.8 k/uL (3.8-10.6)
[2021-03-17 07:44] LABS: African American GFR (CKD) >90 (>60 ml/min/1.73 sqM); Anion Gap 3 mmol/L; Blood Urea Nitrogen <2 mg/dL (9-20); Calcium 7.9 mg/dL (8.4-10.2); Carbon Dioxide 29 mmol/L (22-30); Chloride 112 mmol/L (98-107); Glucose 124 mg/dL (74-99); Magnesium 1.7 mg/dL (1.6-2.3); Non-African American GFR(CKD) >90 (>60 ml/min/1.73 sqM); Potassium 2.9 mmol/L (3.5-5.1); Sodium 144 mmol/L (137-145)
[2021-03-17] MEDS ORDERED: SODIUM CHLORIDE 0.9% 500 ML 500 ML IV ONE (08:13)
[2021-03-17] MEDS ORDERED: VANCOMYCIN IV PER PHARMACY 1 EACH MISC MISCELLANE PRN (08:16)
--- NOTE | 2021-03-17 08:33 | US ---
EXAMINATION TYPE: US carotid duplex BILAT DATE OF EXAM: 03/17/2021 COMPARISON: NONE CLINICAL HISTORY: 55-year-old male with syncope, fall. Detoxing. Hallucinations. Poor historian. TECHNIQUE: Carotid duplex ultrasound examination. Indirect Doppler criteria was utilized. FINDINGS: Ski Technician notes:Suboptimal exam due the patient's inability to stay still EXAM MEASUREMENTS: RIGHT: Peak Systolic Velocity (PSV) cm/sec ----- Right CCA: 38.4 ----- Right ICA: 66.9 ----- Right ECA: 107.3 ICA/CCA ratio: 1.7 RIGHT: End Diastole cm/sec ----- Right CCA: 15.3 ----- Right ICA: 16.4 ----- Right ECA: 24.5 LEFT: Peak Systolic Velocity (PSV) cm/sec ----- Left CCA: 63.3 ----- Left ICA: 59.2 ----- Left ECA: 83.4 ICA/CCA ratio: 0.9 LEFT: End Diastole cm/sec ----- Left CCA: 8.9 ----- Left ICA: 18.2 ----- Left ECA: 20.8 VERTEBRALS (direction of flow): Right Vertebral: Antegrade Left Vertebral: Antegrade Rhythm: Normal Ski Technician notes: No plaque, wall thickening, or elevated velocities. IMPRESSION: Technical limitations due to patient's inability to hold still. No hemodynamically significant ICA st enosis identified on either side. NASCET criteria was used in interpretation of this exam? Criteria for Assigning % of Stenosis / Diameter reduction (Estimation based on the indirect measurements of the internal carotid artery velocities (ICA PSV). 1. Normal (no stenosis)=ICA PSV < 125 cm/s: ratio < 2.0: ICA EDV<40 cm/s. 2. Less than 50% stenosis=ICA PSV < 125 cm/s: ratio < 2.0: ICA EDV<40 cm/s. 3. 50 to 69% stenosis=ICA PSV of 125 to 230 cm/s: ration 2.0 ? 4.0: ICA EDV 40-100 cm/s. 4. Greater than 70% stenosis to near occlusion= ICA PSV > 230 cm/s: ratio > 4.0: ICA EDV > 100 cm/s. 5. Near occlusion= ICA PSV velocities may be low or undetectable: variable ratio and ICA EDV. 6. Total occlusion=unable to detect flow.
[2021-03-17] MEDS ORDERED: POTASSIUM CHLORIDE 20 MEQ in WATER FOR INJECTION 1 100ML.BAG IVPB SCH (09:00)
[2021-03-17] MEDS: DEXTROSE 5%-0.45% NACL 1,000 ML IV SCH (09:30)
[2021-03-17] MEDS: MAGNESIUM SULFATE-D5W PMX 1 GM in DEXTROSE/WATER 1 100ML.BAG IVPB SCH ×2 (09:35→09:36)
[2021-03-17] MEDS: ENOXAPARIN 40 MG/0.4 ML SYRINGE SQ SCH (09:37)
[2021-03-17] MEDS: diazePAM 5 MG TAB PO SCH (09:37)
[2021-03-17] MEDS: lisinopriL 10 MG TAB PO SCH (09:37)
[2021-03-17] MEDS: amLODIPine 5 MG TAB PO SCH ×2 (09:38→21:17)
[2021-03-17] MEDS: VANCOMYCIN 1,500 MG in SODIUM CHLORIDE 0.9% 250 ML IVPB SCH ×3 (09:45→23:51)
[2021-03-17] MEDS: ACETAMINOPHEN TAB 325 MG TAB PO PRN (09:52)
--- NOTE | 2021-03-17 10:52 | XR ---
EXAMINATION TYPE: XR chest 1V portable DATE OF EXAM: 03/17/2021 HISTORY: Shortness of breath. COMPARISON: 03/14/2021 TECHNIQUE: Single view of the chest is submitted. FINDINGS: Demonstrated are scattered senescent parenchymal change. Right basilar patchy infiltrate and/or atelectasis noted. The heart is stable. Hilar and mediastinal structures are within normal limits. Degenerative changes are seen of the dorsal spine. IMPRESSION: 1. Right basilar patchy infiltrate and/or atelectasis noted.
[2021-03-17 11:56] LABS: ABG Base Excess 3.7 mmol/L; ABG HCO3 26 mmol/L (21-25); ABG Oxygen Saturation 97.9 % (94-97); ABG PCO2 33 mmHg (35-45); ABG PH 7.51 (7.35-7.45); ABG PO2 85 mmHg (83-108); Allen Test Performed? Yes
--- NOTE | 2021-03-17 12:55 | P.PN ---
Subjective Progress Note Date: 03/17/21 Patient is more confused today. His mentation is getting worse. He is very lethargic and almost obtunded. He barely open his eyes and responds icing his name but unable to answer any other questions otherwise. He had a fever of 101.4 this morning. Objective - Vital Signs Vital signs: Vital Signs Temp 99.6 F 03/17/21 12:00 Pulse 109 H 03/17/21 12:00 Resp 22 03/17/21 12:00 BP 141/91 03/17/21 12:00 Pulse Ox 97 03/17/21 12:00 Intake & Output 03/16/21 03/17/21 03/17/21 18:59 06:59 18:59 Intake Total 240 0 Output Total 400 500 100 Balance -160 -500 -100 Intake: Oral 240 0 Output: Urine 400 500 100 Other: Voiding Method Diaper External Catheter External Catheter # Voids 1 2 # Bowel Movements 1 1 - Exam General: The patient is very confused and lethargic Eye: there is normal conjunctiva bilaterally. Neck: The neck is supple, there is no JVD. Cardiovascular: Normal S1-S2, no S3-S4, no murmurs. Respiratory: Lungs clear to auscultation bilaterally Gastrointestinal: Abdomen is soft, nontender Musculoskeletal: There is no pedal edema. Skin: Skin is warm and dry - Labs CBC & Chem 7: 03/17/21 07:00 03/17/21 07:00 Labs: Abnormal Lab Results - Last 24 Hours (Table) 03/16/21 03/16/21 03/16/21 Range/Units 12:51 16:46 19:03 RBC (4.30-5.90) m/uL Hgb (13.0-17.5) gm/dL Hct (39.0-53.0) % MCV (80.0-100.0) fL ABG pH (7.35-7.45) ABG pCO2 (35-45) mmHg ABG HCO3 (21-25) mmol/L ABG O2 Saturation (94-97) % Potassium (3.5-5.1) mmol/L Chloride (98-107) mmol/L BUN (9-20) mg/dL Creatinine (0.66-1.25) mg/dL Glucose (74-99) mg/dL POC Glucose (mg/dL) 109 H 106 H (75-99) mg/dL Calcium (8.4-10.2) mg/dL Urine Protein Trace H (Negative) Urine Glucose (UA) Trace H (Negative) U Benzodiazepines Scrn Detected H (NotDetected) U Marijuana (THC) Screen Detected H (NotDetected) 03/17/21 03/17/21 03/17/21 Range/Units 07:00 07:00 11:18 RBC 3.57 L (4.30-5.90) m/uL Hgb 12.2 L (13.0-17.5) gm/dL Hct 36.0 L (39.0-53.0) % MCV 100.8 H (80.0-100.0) fL ABG pH 7.51 H (7.35-7.45) ABG pCO2 33 L (35-45) mmHg ABG HCO3 26 H (21-25) mmol/L ABG O2 Saturation 97.9 H (94-97) % Potassium 2.9 L (3.5-5.1) mmol/L Chloride 112 H (98-107) mmol/L BUN <2 L (9-20) mg/dL Creatinine 0.55 L (0.66-1.25) mg/dL Glucose 124 H (74-99) mg/dL POC Glucose (mg/dL) (75-99) mg/dL Calcium 7.9 L (8.4-10.2) mg/dL Urine Protein (Negative) Urine Glucose (UA) (Negative) U Benzodiazepines Scrn (NotDetected) U Marijuana (THC) Screen (NotDetected) Assessment and Plan Assessment: This is a 55-year-old male was brought into the emergency room after he was found by one of the neighbors covered in feces but responsive with empty bottles of alcohol around him be transferred to the hospital upon arrival he was cleaned up and was found to be hallucinating suggestive of being in DTs for which she was started on benzodiazepines per CIWA scale. CT of the head no acute pathology CT of the face showed old left orbital fracture inferiorly X-ray of the right elbow showed olecranon process spur with some soft tissue swelling EKG showed sinus rhythm Alcohol level was <10 Assessment: Alcohol abuse with alcohol withdrawal syndrome Delirium tremens Rhabdomyolysis Encephalopathy with hallucinations Plan Benzodiazepines per CIWA scale Valium 5 mg 3 times a day IV fluid hydration Thiamine Seizure precautions Fall precautions Computed tomography scan of the head showed no acute findings. Consults neurology and psychiatry for further evaluation Valium dose increased to 10 mg 4 times a day by psychiatry Acute toxo metabolic encephalopathy Sepsis without septic shock Concerns about meningitis Started on broad spectrum antibiotic with vancomycin, ceftriaxone, and acyclovir Blood gas showed no evidence of acute CO2 narcosis Chest x-ray with questionable pneumonia LP ordered I am concerned about patient being able to protect his airway and may require ICU transfer for that reason I would consult pulmonary for further evaluation Poor living condition Recurrent episodes of hospital admission for alcohol abuse Severo. 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
[2021-03-17] MEDS: ACYCLOVIR SODIUM 1,000 MG in SODIUM CHLORIDE 0.9% 250 ML IVPB SCH ×2 (13:00→20:08)
--- NOTE | 2021-03-17 13:07 | EEG ---
ELECTROENCEPHALOGRAM REPORT DATE OF SERVICE: 03/17/2021 PREAMBLE: This is a 55-year-old male with altered mental status. This study is performed to evaluate for any epileptiform activity. EEG FINDINGS: This is a 21-channel routine EEG recording in a patient utilizing 10/20 international system with referential and bipolar montages. Background consists of moderately well- developed and regulated, predominantly 5-6 hertz moderate amplitude theta activity seen in bihemispheric region. Intermittent delta slowing was also seen in generalized distribution. Background does not seem to be reactive to eye opening or closing. Photic driving response was not seen. Occasional bursts of generalized mild suppression were also seen. Different stages of sleep were not seen. No focal or generalized epileptiform activity was seen. EKG channel showed no arrhythmia. Hyperventilation was not performed. IMPRESSION: This is an abnormal EEG due to background slowing of moderate to severe degree. This is suggestive of generalized cerebral dysfunction as can be seen with toxic metabolic encephalopathy or due to diffuse structural brain abnormality. No epileptiform activity was seen. MMODL / IJN: [id number] /
--- NOTE | 2021-03-17 13:34 | P.PN ---
Progress Note - Text Progress Note Date: 03/17/21 Interval History: Patient was seen resting in bed, currently wearing mitts. The patient is attempting to get out of bed and remove his mitts. At this time, the patient is unable to respond appropriately to the psychiatric interview. As per discussion with the patient's nurse, the patient has not been doing well and there is concern for aspiration pneumonia. Primary team is considering intubation for the patient to stabilize his airway. Mental Status Exam: General Appearance: Patient appears to be disheveled, wearing mitts, has a noticeable abrasion on his face. Behavior: Patient is disorganized and appears to respond to internal stimuli. Speech: Patient's speech is dysarthric, and nonspontaneous. Mood/Affect: Unable to assess Suicidality/Homicidality: Unable to assess Perceptions: Patient is responding to internal stimuli. Though content/process: Grossly disorganized Memory and concentration: Poor. Judgment and insight: Very poor. Assessment Acute Alcohol withdrawal Alcohol Hallucinosis vs Delirium Tremens Alcohol Use Disorder, severe Plan: -At this time patient DOES NOT meet criteria for inpatient psychiatric admission. -Patient DOES NOT have decision making capacity at this time and is unable to reason through and communicate/appreciate the risks, benefits and alternatives to treatment. 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 Will defer to the primary team for management of severe alcohol withdrawal. -Agree with neurological workup for possible infectious process as well. -Psychiatry will sign off at this time. Consider reconsultation when the patient is more appropriate for a psychiatric evaluation.
--- NOTE | 2021-03-17 16:28 | XR ---
EXAMINATION TYPE: XR ankle complete LT DATE OF EXAM: 03/17/2021 COMPARISON: NONE HISTORY: Pain TECHNIQUE: 3 views of the left ankle are submitted for evaluation. FINDINGS: There is no evidence for fracture or dislocation. Ankle mortise is intact. Soft tissues are within normal limits. IMPRESSION: 1. No evidence for acute fracture.
--- NOTE | 2021-03-17 16:30 | P.CNPUL ---
History of Present Illness Consult date: 03/17/21 Reason for consult: dyspnea Chief complaint: Acute EtOH withdrawal, aspiration pneumonia, History of present illness: This a 55-year-old white male patient who was admitted to the hospital on March 14, 2021 when he was found delirious and confused by his neighbor and his home. Patient was found laying on the floor, in his own feces, he had a bunch alcohol bottles lying around him. he had multiple bruises and abrasions in different stages of healing. He has a hematoma to his left eye , and abrasions on his knees and lower extremities. Tendon has a history of mathews abuse, eats marijuana edibles. Drug screen was positive for marijuana, benzodiazepines. His alcohol level was less than 10. Brain CT showed no acute intracranial abnormality, no fracture, cervical spine, additional spondylotic changes in the cervical spine. CT of the facial bones showed evidence of old fracture of the floor of the left bony orbit, no acute fractures. Initial chest x-ray showed minimal subsegmental atelectasis in the right lung base without change. EKG showed sinus rhythm. Initial blood work showed a white count of 7.8, hemoglobin 12.3, INR of 1.2, sodium was 153, potassium 3.4, chloride is 115, CO2 is 24, B1 and creatinine 0.74, troponin was 0.016. Patient was started on benzodiazepines in the form of Ativan per CIWA protocol. Neurology consultation was obtained. Psychiatric services are following. Patient is on thiamine and folate per CIWA protocol. ABG showed moderate to severe degree of slowing, consistent with toxic metabolic encephalopathy, no epileptiform discharges were seen. This morning patient started spiking fevers with a temp of 101.4F, he is also requiring supplemental oxygen currently at 2 L with a pulse ox of 93-97%, he is receiving Valium and when necessary Ativan. Quite lethargic, confused, he opens eyes to voice, however he is not able to provide any meaningful verbal respons es. Today's chest x-ray has been reviewed showing right basilar patchy infiltrate and/or atelectasis. Patient was placed on empiric antibiotics in the form of Rocephin and vancomycin. In view of altered mentation and fever lumbar puncture was requested however anesthesia was unable to perform it because Lovenox was given this morning. We were consulted in view of depressed level of consciousness related to benzodiazepines and possibility of needing to intubate the patient placement on mechanical ventilator. Blood gas has been obtained showing pO2 of 85, pCO2 of 33, pH of 7.51 this was done on FiO2 of 28%, patient is breathing fairly comfortably, does not appear to be in any acute distress, head of the bed is up 35, he is currently on 2 L of oxygen, his pulse ox is 97%. No coughing or wheezing. He continues on empiric antibiotics. Review of Systems All systems: negative Constitutional: Reports fatigue, Reports lethargy, Reports weakness, Denies chills, Denies fever Eyes: denies blurred vision, denies pain Ears, nose, mouth and throat: Denies headache, Denies sore throat Cardiovascular: Denies chest pain, Denies shortness of breath Respiratory: Reports dyspnea, Denies cough Gastrointestinal: Denies abdominal pain, Denies diarrhea, Denies nausea, Denies vomiting Musculoskeletal: Denies myalgias Integumentary: Denies pruritus, Denies rash Neurological: Reports balance difficulties, Reports change in mentation, Denies numbness, Denies weakness Psychiatric: Denies anxiety, Denies depression Endocrine: Denies fatigue, Denies weight change Past Medical History Past Medical History: GERD/Reflux, Hypertension, Liver Disease Additional Past Medical History / Comment(s): seasonal allergies History of Any Multi-Drug Resistant Organisms: None Reported Past Surgical History: Hernia Repair Additional Past Surgical History / Comment(s): umbilical hernia repair 2012 Past Anesthesia/Blood Transfusion Reactions: Postoperative Nausea & Vomiting (PONV) Past Psychological History: No Psychological Hx Reported Smoking Status: Never smoker Past Alcohol Use History: Heavy Past Drug Use History: Prescription Drug Abuse - Past Family History Mother Family Medical History: Cancer, Diabetes Mellitus, Hypertension Additional Family Medical History / Comment(s): nonHodgkins lymphoma Father Family Medical History: Hypertension Medications and Allergies Home Medications Medication Instructions Recorded Confirmed Type Naltrexone HCl [Revia] 50 mg PO DAILY 02/05/19 03/14/21 History traZODone HCL 50 mg PO HS PRN 02/05/19 03/14/21 History Gabapentin [Neurontin] 100 mg PO TID 03/14/21 03/14/21 History Omeprazole 40 mg PO DAILY 03/14/21 03/14/21 History Promethazine HCl 12.5 mg PO DAILY PRN 03/14/21 03/14/21 History Vilazodone HCl [Viibryd] 40 mg PO DAILY 03/14/21 03/14/21 History amLODIPine BESYLATE/BENAZEPRIL 1 cap PO BID 03/14/21 03/14/21 History [amLODIPine BESYLATE/BENAZEPRIL 5-20 MG] tiZANidine HCL 4 mg PO TID 03/14/21 03/14/21 History Allergies Allergy/AdvReac Type Severity Reaction Status Date / Time bee venom protein (honey bee) Allergy Anaphylaxis Verified 03/14/21 18:27 Penicillins Allergy Unknown Verified 03/15/21 03:38 Sulfa (Sulfonamide Allergy Swelling Verified 03/14/21 18:27 Antibiotics) codeine AdvReac Nausea & Verified 03/14/21 18:27 Vomiting Physical Exam Vitals: Vital Signs Temp Pulse Resp BP Pulse Ox 03/17/21 12:00 99.6 F 109 H 22 141/91 97 03/17/21 08:00 101.4 F H 122 H 22 139/84 93 L 03/17/21 03:19 98.2 F 110 H 20 127/81 98 03/17/21 01:21 111 H 03/16/21 23:29 99.9 F H 111 H 18 144/87 98 03/16/21 20:00 99.8 F H 110 H 18 135/79 93 L 03/16/21 16:00 98.7 F 100 16 128/78 94 L Intake and Output 03/17/21 03/17/21 03/17/21 06:59 14:59 22:59 Intake Total 0 Output Total 500 100 Balance -500 -100 Intake: Oral 0 Output: Urine 500 100 Other: Voiding Method External Catheter External Catheter # Voids 2 # Bowel Movements 1 GENERAL EXAM: Lethargic, confused, 55-year-old white male, 2 L of oxygen and the pulse ox 97%, patient has bruises and abrasions on his face and left eye, knees and feet comfortable in no apparent distress. HEAD: Normocephalic/atraumatic. EYES: Normal reaction of pupils, equal size. Conjunctiva pink, sclera white. NOSE: Clear with pink turbinates. THROAT: No erythema or exudates. NECK: No masses, no JVD, no thyroid enlargement, no adenopathy. CHEST: No chest wall deformity. Symmetrical expansion. LUNGS: Equal air entry with dim breath sounds, no crackles CVS: Regular rate and rhythm, normal S1 and S2, no gallops, no murmurs, no rubs ABDOMEN: Soft, nontender. No hepatosplenomegaly, normal bowel sounds, no guarding or rigidity. EXTREMITIES: No clubbing, no edema, no cyanosis, 2+ pulses and upper and lower extremities. MUSCULOSKELETAL: Muscle strength and tone normal. SPINE: No scoliosis or deformity SKIN: No rashes CENTRAL NERVOUS SYSTEM: Confused No focal deficits, tone is normal in all 4 e xtremities. Results - Laboratory Findings CBC and BMP: 03/17/21 07:00 03/17/21 07:00 ABG ABG pH 7.51 (7.35-7.45) H 03/17/21 11:18 ABG pCO2 33 mmHg (35-45) L 03/17/21 11:18 ABG pO2 85 mmHg (83-108) 03/17/21 11:18 ABG O2 Saturation 97.9 % (94-97) H 03/17/21 11:18 PT/INR, D-dimer PT 12.1 sec (9.0-12.0) H 03/14/21 16:34 INR 1.2 (<1.2) H 03/14/21 16:34 Abnormal lab findings: Abnormal Labs 03/14/21 03/14/21 03/14/21 16:34 16:34 16:34 RBC 3.65 L Hgb 12.3 L Hct 37.3 L MCV 102.3 H PT 12.1 H INR 1.2 H ABG pH ABG pCO2 ABG HCO3 ABG O2 Saturation Sodium 153 H Potassium 3.4 L Chloride 115 H BUN Creatinine Glucose POC Glucose (mg/dL) Calcium AST 100 H Creatine Kinase 999 H Total Protein 5.6 L Albumin 2.8 L Urine Protein Urine Glucose (UA) U Benzodiazepines Scrn U Marijuana (THC) Screen 03/14/21 03/15/21 03/15/21 23:15 08:27 08:27 RBC 3.64 L Hgb 12.2 L Hct 37.4 L MCV 102.8 H PT INR ABG pH ABG pCO2 ABG HCO3 ABG O2 Saturation Sodium 152 H 150 H Potassium 3.2 L 3.3 L Chloride 114 H 115 H BUN Creatinine 0.62 L Glucose POC Glucose (mg/dL) Calcium 8.3 L 8.1 L AST Creatine Kinase Total Protein Albumin Urine Protein Urine Glucose (UA) U Benzodiazepines Scrn U Marijuana (THC) Screen 03/16/21 03/16/21 03/16/21 07:53 12:51 16:46 RBC Hgb Hct MCV PT INR ABG pH ABG pCO2 ABG HCO3 ABG O2 Saturation Sodium Potassium 3.1 L Chloride 113 H BUN 5 L Creatinine 0.53 L Glucose 114 H POC Glucose (mg/dL) 109 H 106 H Calcium 7.9 L AST Creatine Kinase 217 H Total Protein Albumin Urine Protein Urine Glucose (UA) U Benzodiazepines Scrn U Marijuana (THC) Screen 03/16/21 03/17/21 03/17/21 19:03 07:00 07:00 RBC 3.57 L Hgb 12.2 L Hct 36.0 L MCV 100.8 H PT INR ABG pH ABG pCO2 ABG HCO3 ABG O2 Saturation Sodium Potassium 2.9 L Chloride 112 H BUN <2 L Creatinine 0.55 L Glucose 124 H POC Glucose (mg/dL) Calcium 7.9 L AST Creatine Kinase Total Protein Albumin Urine Protein Trace H Urine Glucose (UA) Trace H U Benzodiazepines Scrn Detected H U Marijuana (THC) Screen Detected H 03/17/21 11:18 RBC Hgb Hct MCV PT INR ABG pH 7.51 H ABG pCO2 33 L ABG HCO3 26 H ABG O2 Saturation 97.9 H Sodium Potassium Chloride BUN Creatinine Glucose POC Glucose (mg/dL) Calcium AST Creatine Kinase Total Protein Albumin Urine Protein Urine Glucose (UA) U Benzodiazepines Scrn U Marijuana (THC) Screen - Diagnostic Findings Chest x-ray: report reviewed, image reviewed Additional studies: CT of the head and cervical spine, results of the face CT, EKG, carotid Doppler study, EEG results reviewed Assessment and Plan Plan: Assessment: #1. Acute hypoxic respiratory failure related to atelectasis, and possibility of right basilar pneumonia is not completely excluded, chest x-ray showing right basilar patchy infiltrate #2. Altered mental status, related to acute delirium tremens. CT of the head and cervical spine showing no acute pathology #3. History of prescription drug abuse, alcohol abuse #4. Falls at home, related to altered mental status #5. Multiple skin abrasions, including left eye bruising, with a CT of the face showing no acute fractures #6. Hypernatremia related to dehydration free water deficit, improved with IV fluids #7. Hypertension #8. GERD/reflux #9. Anxiety Plan: Continue on medical treatment Ativan per CIWA protocol Current CIWA score is 5 Chest x-ray has been reviewed, continue current antibiotics Patient is breathing spontaneously, blood gas has been reviewed No need for transfer to ICU, CIWA is currently low, and patient is able to protect his airway Head of the bed up 35 at all times Maintain safety precautions Provide health and safety coordinator We'll continue to closely follow I performed a history & physical examination of the patient and discussed their management with my nurse practitioner, Naila Pryor. I reviewed the nurse practitioner's note and agree with the documented findings and plan of care. Lung sounds are positive for diffuse wheezes throughout the lung licea. The findings and the impression was discussed with the patient. I attest to the documentation by the nurse practitioner. Time with Patient: Greater than 30
[2021-03-17 17:33] LABS: Folate, Serum 5.7 ng/mL
[2021-03-17] MEDS: POTASSIUM CHLORIDE ER 20 MEQ TAB.ER PO STA ×2 (17:36→17:53)
[2021-03-17] MEDS: POTASSIUM CHLORIDE 10 MEQ in WATER FOR INJECTION 1 100ML.BAG IVPB SCH ×4 (18:36→23:51)
--- NOTE | 2021-03-17 20:17 | P.PAINCN ---
History of Present Illness - Reason for Consult Consult date: 03/17/21 - History of Present Illness This is a 55-year-old patient who presents as an inpatient and we are consulted for lumbar puncture. The patient was brought in 3 days ago due to altered mental status and unresponsiveness. Patient has a history of alcoholism as well. Essentially the patient has been extremely delirious disorganized is oriented and barely responding to stimuli. Patient is currently wearing mitts for protection. Primary team is concerned for some type of central nervous system infection so they are consulted us for lumbar puncture. Patient does not have a known history of any back intervention. In addition to above, 13-point review of systems is also negative for chest pain, shortness of breath, changes in vision, changes in hearing, new onset weakness, abdominal pain, diarrhea, extreme fatigue, malaise, fever, skin changes, homicidal or suicidal ideation, or bowel or bladder incontinence. Physical exam: Vital Signs: Reviewed in EMR GENERAL: Obtunded, hardly alert PSYCH: Groggy, does not answer questions, AAOx0 SKIN: Skin color, texture, turgor normal, no rashes or lesions HEENT: Normocephalic, atraumatic. CV: No pedal edema RESP: Respirations are labored, no audible wheezing GI: Abdomen non-distended NEUR: unable to assess as patient is not cooperative. Assessment: 1. Encephalopathy possibly due to infection 2. Delirium tremens Plan: - We will continue to assess the patient if he'll be able to receive the lumbar puncture. If the patient continues to deteriorate and requires intubation or is uncooperative he may not be able to do this. Regardless the patient's Lovenox will need to be held at least 12 hours prior to this. Past Medical History Past Medical History: GERD/Reflux, Hypertension, Liver Disease Additional Past Medical History / Comment(s): seasonal allergies History of Any Multi-Drug Resistant Organisms: None Reported Past Surgical History: Hernia Repair Additional Past Surgical History / Comment(s): umbilical hernia repair 2012 Past Anesthesia/Blood Transfusion Reactions: Postoperative Nausea & Vomiting (PONV) Past Psychological History: No Psychological Hx Reported Smoking Status: Never smoker Past Alcohol Use History: Heavy Past Drug Use History: Prescription Drug Abuse - Past Family History Mother Family Medical History: Cancer, Diabetes Mellitus, Hypertension Additional Family Medical History / Comment(s): nonHodgkins lymphoma Father Family Medical History: Hypertension Medications and Allergies Home Medications Medication Instructions Recorded Confirmed Type Naltrexone HCl [Revia] 50 mg PO DAILY 02/05/19 03/14/21 History traZODone HCL 50 mg PO HS PRN 02/05/19 03/14/21 History Gabapentin [Neurontin] 100 mg PO TID 03/14/21 03/14/21 History Omeprazole 40 mg PO DAILY 03/14/21 03/14/21 History Promethazine HCl 12.5 mg PO DAILY PRN 03/14/21 03/14/21 History Vilazodone HCl [Viibryd] 40 mg PO DAILY 03/14/21 03/14/21 History amLODIPine BESYLATE/BENAZEPRIL 1 cap PO BID 03/14/21 03/14/21 History [amLODIPine BESYLATE/BENAZEPRIL 5-20 MG] tiZANidine HCL 4 mg PO TID 03/14/21 03/14/21 History Allergies Allergy/AdvReac Type Severity Reaction Status Date / Time bee venom protein (honey bee) Allergy Anaphylaxis Verified 03/14/21 18:27 Penicillins Allergy Unknown Verified 03/15/21 03:38 Sulfa (Sulfonamide Allergy Swelling Verified 03/14/21 18:27 Antibiotics) codeine AdvReac Nausea & Verified 03/14/21 18:27 Vomiting Physical Exam Vitals: Vital Signs Temp Pulse Resp BP Pulse Ox 03/17/21 12:00 99.6 F 109 H 22 141/91 97 03/17/21 08:00 101.4 F H 122 H 22 139/84 93 L 03/17/21 03:19 98.2 F 110 H 20 127/81 98 03/17/21 01:21 111 H 03/16/21 23:29 99.9 F H 111 H 18 144/87 98 03/16/21 20:00 99.8 F H 110 H 18 135/79 93 L 03/16/21 16:00 98.7 F 100 16 128/78 94 L Intake and Output 03/17/21 03/17/21 03/17/21 06:59 14:59 22:59 Intake Total 0 Output Total 500 100 Balance -500 -100 Intake: Oral 0 Output: Urine 500 100 Other: Voiding Method External Catheter External Catheter # Voids 2 # Bowel Movements 1 Results CBC & Chem 7: 03/17/21 07:00 03/17/21 07:00 Labs: Abnormal Lab Results - Last 24 Hours (Table) 03/16/21 03/16/21 03/17/21 Range/Units 16:46 19:03 07:00 RBC (4.30-5.90) m/uL Hgb (13.0-17.5) gm/dL Hct (39.0-53.0) % MCV (80.0-100.0) fL ABG pH (7.35-7.45) ABG pCO2 (35-45) mmHg ABG HCO3 (21-25) mmol/L ABG O2 Saturation (94-97) % Potassium 2.9 L (3.5-5.1) mmol/L Chloride 112 H (98-107) mmol/L BUN <2 L (9-20) mg/dL Creatinine 0.55 L (0.66-1.25) mg/dL Glucose 124 H (74-99) mg/dL POC Glucose (mg/dL) 106 H (75-99) mg/dL Calcium 7.9 L (8.4-10.2) mg/dL Urine Protein Trace H (Negative) Urine Glucose (UA) Trace H (Negative) U Benzodiazepines Scrn Detected H (NotDetected) U Marijuana (THC) Screen Detected H (NotDetected) 03/17/21 03/17/21 Range/Units 07:00 11:18 RBC 3.57 L (4.30-5.90) m/uL Hgb 12.2 L (13.0-17.5) gm/dL Hct 36.0 L (39.0-53.0) % MCV 100.8 H (80.0-100.0) fL ABG pH 7.51 H (7.35-7.45) ABG pCO2 33 L (35-45) mmHg ABG HCO3 26 H (21-25) mmol/L ABG O2 Saturation 97.9 H (94-97) % Potassium (3.5-5.1) mmol/L Chloride (98-107) mmol/L BUN (9-20) mg/dL Creatinine (0.66-1.25) mg/dL Glucose (74-99) mg/dL POC Glucose (mg/dL) (75-99) mg/dL Calcium (8.4-10.2) mg/dL Urine Protein (Negative) Urine Glucose (UA) (Negative) U Benzodiazepines Scrn (NotDetected) U Marijuana (THC) Screen (NotDetected) PQRS Measure Charge Sheet PQRS Narrative: Smoking Status Never smoker Do You Want the Pneumonia No Vaccine AT THIS TIME? Blood Pressure [Supine] 141/91 Blood Pressure 124/66 Pain Intensity [None] 0 Pain Intensity 0 Scale Used Numeric (1 - 10) Home Medications: Ambulatory Orders Naltrexone HCl [Revia] 50 mg PO DAILY 02/05/19 traZODone HCL 50 mg PO HS PRN 02/05/19 Gabapentin [Neurontin] 100 mg PO TID 03/14/21 Omeprazole 40 mg PO DAILY 03/14/21 Promethazine HCl 12.5 mg PO DAILY PRN 03/14/21 Vilazodone HCl [Viibryd] 40 mg PO DAILY 03/14/21 amLODIPine BESYLATE/BENAZEPRIL [amLODIPine BESYLATE/BENAZEPRIL 5-20 MG] 1 cap PO BID 03/14/21 tiZANidine HCL 4 mg PO TID 03/14/21
[2021-03-18 00:44] LABS: ABG HCO3 27 mmol/L (21-25); ABG Oxygen Saturation 97.1 % (94-97); ABG PCO2 35 mmHg (35-45); ABG PO2 76 mmHg (83-108); ABG TCO2 28 mmol/L (19-24); Allen Test Performed? Yes
--- NOTE | 2021-03-18 00:59 | US ---
EXAMINATION TYPE: US venous doppler duplex LE LT DATE OF EXAM: 03/17/2021 3:52 PM COMPARISON: NONE CLINICAL HISTORY: r/o DVT. left swollen foot, no h/o dvt, patient in ETOH withdrawals, in restraints and is combative SIDE PERFORMED: Left TECHNIQUE: The lower extremity deep venous system is examined utilizing real time linear array sonog emilie with graded compression, doppler sonography and color-flow sonography. VESSELS IMAGED: Common Femoral Vein Deep Femoral Vein Greater Saphenous Vein * Femoral Vein Popliteal Vein Small Saphenous Vein * Proximal Calf Veins (* superficial vessels) Left Leg: Negative for DVT IMPRESSION: No evidence of deep vein thrombosis in the left leg.
--- NOTE | 2021-03-18 06:10 | P.CONS ---
History of Present Illness - Reason for Consult Consult date: 03/17/21 Fever Requesting physician: Alexander Herrera - Chief Complaint mental status changes x few days - History of Present Illness History of present illness : Patient is a 55-year-old male with multiple comorbidities history of alcoholism the patient was brought to the ER 3 days ago with the patient was found to be delirious and confused by his neighbor patient was lying on the floor in his own feces and he had a bunch of alcohol bottles lying on him patient was noticed to have multiple bruises and abrasion on his lower extremity and hematoma to the left eye patient on presentation to the hospital was afebrile however has been running a low-grade fever since y and did spike a fever of 101.4 degree for height today patient did have a normal white count with no lymphopenia kidney function has been normal AST was elevated as well as CK on admission urine was negative urine drug screen was positive for benzo and marijuana patient did have a chest x-ray with minimal subsegmental atelectasis right lung base without any change repeat x-ray with right patchy basilar infiltrate and atelectasis patient was started on Rocephin vancomycin and acyclovir with concern for possible meningitis/encephalitis infectious disease was consulted for further management anesthesia has been consulted for LP most information has been obtained from review the chart and talking to nursing staff and the patient himself is unable to provide any history Review of system: Positive point has been mentioned in HPI complete review could not be obtained because of underlying mental status. Past medical history : Reviewed, documented below Past surgical history : Reviewed, documented below Social history: Reviewed, documented below Medications: Reviewed, as documented below GENERAL DESCRIPTION: Middle-aged male lying in bed, no distress. No tachypnea or accessory muscle of respiration use. HEENT: Shows Pallor , no scleral icterus. Oral mucous membrane is dry. NECK: Trachea central, no thyromegaly. LUNGS: Unlabored breathing. Decreased breath sound at the base. No wheeze or crackle. HEART: S1, S2, regular rate and rhythm. ABDOMEN: Soft, no tenderness , guarding or rigidity EXTREMITIES: No edema of feet. SKIN: No rash, no masses palpable. Multiple bruises NEUROLOGICAL: The patient is lethargic orientation could not determine LABS AND RADIOLOGY: Reviewed results see below Assessment : Patient presented to hospital with mental status changes in this patient who do have history of alcoholism and drug use now with a fever concern for possible aspiration pneumonia underlying meningitis/encephalitis not entirely excluded Plan: 1-await LP and CSF will be sent for Gram stain and cell count glucose protein HSV DNA by PCR 2-vancomycin pharmacy to dose her with a target trough of 15 while watching her kidney function and Vanco trough closely. 3-Rocephin 2 g every 12 and acyclovir 10 mg/kg every 8 hour We will follow on clinical condition and cultures to further adjust medication if needed Thank you for this consultation we will follow the patient along with you Past Medical History Past Medical History: GERD/Reflux, Hypertension, Liver Disease Additional Past Medical History / Comment(s): seasonal allergies History of Any Multi-Drug Resistant Organisms: None Reported Past Surgical History: Hernia Repair Additional Past Surgical History / Comment(s): umbilical hernia repair 2012 Past Anesthesia/Blood Transfusion Reactions: Postoperative Nausea & Vomiting (PONV) Past Psychological History: No Psychological Hx Reported Smoking Status: Never smoker Past Alcohol Use History: Heavy Past Drug Use History: Prescription Drug Abuse - Past Family History Mother Family Medical History: Cancer, Diabetes Mellitus, Hypertension Additional Family Medical History / Comment(s): nonHodgkins lymphoma Father Family Medical History: Hypertension Medications and Allergies Home Medications Medication Instructions Recorded Confirmed Type Naltrexone HCl [Revia] 50 mg PO DAILY 02/05/19 03/14/21 History traZODone HCL 50 mg PO HS PRN 02/05/19 03/14/21 History Gabapentin [Neurontin] 100 mg PO TID 03/14/21 03/14/21 History Omeprazole 40 mg PO DAILY 03/14/21 03/14/21 History Promethazine HCl 12.5 mg PO DAILY PRN 03/14/21 03/14/21 History Vilazodone HCl [Viibryd] 40 mg PO DAILY 03/14/21 03/14/21 History amLODIPine BESYLATE/BENAZEPRIL 1 cap PO BID 03/14/21 03/14/21 History [amLODIPine BESYLATE/BENAZEPRIL 5-20 MG] tiZANidine HCL 4 mg PO TID 03/14/21 03/14/21 History Allergies Allergy/AdvReac Type Severity Reaction Status Date / Time bee venom protein (honey bee) Allergy Anaphylaxis Verified 03/14/21 18:27 Penicillins Allergy Unknown Verified 03/15/21 03:38 Sulfa (Sulfonamide Allergy Swelling Verified 03/14/21 18:27 Antibiotics) codeine AdvReac Nausea & Verified 03/14/21 18:27 Vomiting Physical Exam Vitals: Vital Signs Temp Pulse Resp BP Pulse Ox 03/17/21 08:00 101.4 F H 122 H 22 139/84 93 L 03/17/21 03:19 98.2 F 110 H 20 127/81 98 03/17/21 01:21 111 H 03/16/21 23:29 99.9 F H 111 H 18 144/87 98 03/16/21 20:00 99.8 F H 110 H 18 135/79 93 L 03/16/21 16:00 98.7 F 100 16 128/78 94 L 03/16/21 14:00 107 H 16 03/16/21 12:00 98.9 F 107 H 16 119/82 94 L Intake and Output 03/16/21 03/17/21 03/17/21 22:59 06:59 14:59 Intake Total 120 0 Output Total 400 500 Balance -280 -500 0 Intake: Oral 120 0 Output: Urine 400 500 Other: Voiding Method External Catheter External Catheter External Catheter # Bowel Movements 1 Results CBC & Chem 7: 03/17/21 07:00 03/17/21 07:00 Labs: Abnormal Lab Results - Last 24 Hours (Table) 03/16/21 03/16/21 03/16/21 Range/Units 12:51 16:46 19:03 RBC (4.30-5.90) m/uL Hgb (13.0-17.5) gm/dL Hct (39.0-53.0) % MCV (80.0-100.0) fL Potassium (3.5-5.1) mmol/L Chloride (98-107) mmol/L BUN (9-20) mg/dL Creatinine (0.66-1.25) mg/dL Glucose (74-99) mg/dL POC Glucose (mg/dL) 109 H 106 H (75-99) mg/dL Calcium (8.4-10.2) mg/dL Urine Protein Trace H (Negative) Urine Glucose (UA) Trace H (Negative) U Benzodiazepines Scrn Detected H (NotDetected) U Marijuana (THC) Screen Detected H (NotDetected) 03/17/21 03/17/21 Range/Units 07:00 07:00 RBC 3.57 L (4.30-5.90) m/uL Hgb 12.2 L (13.0-17.5) gm/dL Hct 36.0 L (39.0-53.0) % MCV 100.8 H (80.0-100.0) fL Potassium 2.9 L (3.5-5.1) mmol/L Chloride 112 H (98-107) mmol/L BUN <2 L (9-20) mg/dL Creatinine 0.55 L (0.66-1.25) mg/dL Glucose 124 H (74-99) mg/dL POC Glucose (mg/dL) (75-99) mg/dL Calcium 7.9 L (8.4-10.2) mg/dL Urine Protein (Negative) Urine Glucose (UA) (Negative) U Benzodiazepines Scrn (NotDetected) U Marijuana (THC) Screen (NotDetected)
[2021-03-18 06:13] LABS: Glucose,Whole Blood 99 mg/dL (75-99)
[2021-03-18] MEDS: ACYCLOVIR SODIUM 1,000 MG in SODIUM CHLORIDE 0.9% 250 ML IVPB SCH ×3 (06:50→20:52)
[2021-03-18] MEDS: PANTOPRAZOLE 40 MG TABLET PO SCH (06:58)
[2021-03-18] MEDS: THIAMINE 100 MG TAB PO SCH ×2 (06:58→18:05)
[2021-03-18 08:20] LABS: INR 1.4 (<1.2); Prothrombin Time 13.8 sec (9.0-12.0)
[2021-03-18 08:21] LABS: ALT 28 U/L (4-49); AST 59 U/L (17-59); African American GFR (CKD) >90 (>60 ml/min/1.73 sqM); Albumin 2.4 g/dL (3.5-5.0); Alkaline Phosphatase 59 U/L (38-126); Anion Gap 7 mmol/L; Blood Urea Nitrogen 4 mg/dL (9-20); Calcium 7.6 mg/dL (8.4-10.2); Carbon Dioxide 25 mmol/L (22-30); Chloride 110 mmol/L (98-107); Glucose 105 mg/dL (74-99); Magnesium 1.8 mg/dL (1.6-2.3); Non-African American GFR(CKD) >90 (>60 ml/min/1.73 sqM); Potassium 3.5 mmol/L (3.5-5.1); Sodium 142 mmol/L (137-145); Total Bilirubin 0.8 mg/dL (0.2-1.3); Total Protein 5.2 g/dL (6.3-8.2)
[2021-03-18 08:28] LABS: Basophils # (A) 0.1 k/uL (0-0.2); Basophils % (A) 1 %; Eosinophils # (A) 0.1 k/uL (0-0.7); Eosinophils % (A) 1 %; HCT 35.3 % (39.0-53.0); HGB 12.1 gm/dL (13.0-17.5); Lymphocytes # (A) 1.5 k/uL (1.0-4.8); Lymphocytes % (A) 13 %; MCH 34.3 pg (25.0-35.0); MCHC 34.3 g/dL (31.0-37.0); MCV 99.9 fL (80.0-100.0); Macrocytosis Slight; Mean Platelet Volume 8.3; Monocytes # (A) 0.6 k/uL (0-1.0); Monocytes % (A) 6 %; Neutrophils # (A) 9.1 k/uL (1.3-7.7); Neutrophils % (A) 79 %; Platelet Count 236 k/uL (150-450); RBC 3.53 m/uL (4.30-5.90); WBC 11.5 k/uL (3.8-10.6)
--- NOTE | 2021-03-18 09:08 | P.PN ---
Subjective Progress Note Date: 03/17/21 Patient was seen for a follow-up. Patient's friend was also present today. Patient continues to be very encephalopathic. Restless, does not communicate much. Patient states just a few words, like "yes", "no", "all right". Patient not able to tell me his name. Objective - Vital Signs Vital signs: Vital Signs Temp 99.7 F H 03/18/21 08:15 Pulse 128 H 03/18/21 08:15 Resp 24 03/18/21 08:15 BP 138/83 03/18/21 08:15 Pulse Ox 90 L 03/18/21 08:15 Intake & Output 03/17/21 03/18/21 03/18/21 18:59 06:59 18:59 Intake Total 0 Output Total 350 Balance -350 Weight 61.5 kg Intake: Oral 0 Output: Urine 350 Other: Voiding Method External Catheter External Catheter # Voids 2 1 # Bowel Movements 1 - Exam Patient continues to be significantly encephalopathic. Only states yes, no or "all right". Patient makes eye contact. He did not speak much otherwise. Sometimes he may say a phrase. Patient's pupils are round and reacting, face is symmetric. Visual licea could not be tested. Extraocular muscles are intact. Patient moves all 4 extremities. Tone is equal bilaterally. Left ankle is painful. - Labs CBC & Chem 7: 03/18/21 07:39 03/18/21 07:39 Labs: Abnormal Lab Results - Last 24 Hours (Table) 03/17/21 03/18/21 03/18/21 Range/Units 11:18 00:40 07:39 WBC (3.8-10.6) k/uL RBC (4.30-5.90) m/uL Hgb (13.0-17.5) gm/dL Hct (39.0-53.0) % Neutrophils # (1.3-7.7) k/uL PT 13.8 H (9.0-12.0) sec INR 1.4 H (<1.2) ABG pH 7.51 H 7.50 H (7.35-7.45) ABG pCO2 33 L (35-45) mmHg ABG pO2 76 L (83-108) mmHg ABG HCO3 26 H 27 H (21-25) mmol/L ABG Total CO2 28 H (19-24) mmol/L ABG O2 Saturation 97.9 H 97.1 H (94-97) % Chloride (98-107) mmol/L BUN (9-20) mg/dL Creatinine (0.66-1.25) mg/dL Glucose (74-99) mg/dL Calcium (8.4-10.2) mg/dL Total Protein (6.3-8.2) g/dL Albumin (3.5-5.0) g/dL 03/18/21 03/18/21 Range/Units 07:39 07:39 WBC 11.5 H (3.8-10.6) k/uL RBC 3.53 L (4.30-5.90) m/uL Hgb 12.1 L (13.0-17.5) gm/dL Hct 35.3 L (39.0-53.0) % Neutrophils # 9.1 H (1.3-7.7) k/uL PT (9.0-12.0) sec INR (<1.2) ABG pH (7.35-7.45) ABG pCO2 (35-45) mmHg ABG pO2 (83-108) mmHg ABG HCO3 (21-25) mmol/L ABG Total CO2 (19-24) mmol/L ABG O2 Saturation (94-97) % Chloride 110 H (98-107) mmol/L BUN 4 L (9-20) mg/dL Creatinine 0.52 L (0.66-1.25) mg/dL Glucose 105 H (74-99) mg/dL Calcium 7.6 L (8.4-10.2) mg/dL Total Protein 5.2 L (6.3-8.2) g/dL Albumin 2.4 L (3.5-5.0) g/dL Assessment and Plan Assessment: * 55-year-old male with history of alcoholism, was found at laying with fecal matter with multiple bruises, scratches and pressure sores over dependent areas, indicating patient has been on the floor for fairly long period of time. Last period of contact with his friends was on Sunday, 3 days prior to arrival. Patient has not improved clinically since arrival, continues to be significantly delirious/encephalopathic. 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 Patient now has developed temperature 101.4. Rule out meningitis encephalitis. * Hypertension * History of alcoholism * History of marijuana use. Plan: * Patient is not showing signs of improvement. Patient has not developed fever. Await lumbar puncture. Patient has been empirically started on acyclovir, vancomycin and ceftriaxone meningeal dose. Need to closely watch renal functions for acyclovir. * Await lumbar puncture. * EEG was performed, which was abnormal due to background slowing of moderate to severe degree. This is suggestive of generalized cerebral dysfunction, as can be seen with toxic metabolic encephalopathy or due to diffuse structural brain abnormality. No epileptiform activity was seen. * Carotid Doppler was technically difficult due to patient's inability to hold still. No hemodynamically significant ICA stenosis identified on either side. Antegrade flow in both vertebral arteries. * B12 582, folate 5.7, TSH 1.77, RPR nonreactive. We will start folate replacement. B6 and MMA pending. * Thiamine, folate. WA protocol. * Psychiatry also following the patient. * Telemetry monitoring showing sinus rhythm, sinus tachycardia with some ST depression. * Left ankle x-ray to rule out fracture. * MRI of the brain with and without contrast. * We will follow clinically.
--- NOTE | 2021-03-18 09:11 | P.PN ---
Subjective Progress Note Date: 03/18/21 Patient was seen and evaluated by me this morning. His overall condition is not improving. He remained encephalopathic and disorganized. Patient is unable to answer questions appropriately. Nursing staff informed me that his peripheral IV came out overnight. Patient also still having low-grade fever and appeared tachypneic and tachycardic. Objective - Vital Signs Vital signs: Vital Signs Temp 99.7 F H 03/18/21 08:15 Pulse 128 H 03/18/21 08:15 Resp 24 03/18/21 08:15 BP 138/83 03/18/21 08:15 Pulse Ox 90 L 03/18/21 08:15 Intake & Output 03/17/21 03/18/21 03/18/21 18:59 06:59 18:59 Intake Total 0 Output Total 350 Balance -350 Weight 61.5 kg Intake: Oral 0 Output: Urine 350 Other: Voiding Method External Catheter External Catheter # Voids 2 1 # Bowel Movements 1 - Exam General: The patient is very confused and lethargic Eye: there is normal conjunctiva bilaterally. Neck: The neck is supple, there is no JVD. Cardiovascular: Normal S1-S2, no S3-S4, no murmurs. Respiratory: Lungs clear to auscultation bilaterally Gastrointestinal: Abdomen is soft, nontender Musculoskeletal: There is +1 pedal edema. Skin: Skin is warm and dry - Labs CBC & Chem 7: 03/18/21 07:39 03/18/21 07:39 Labs: Abnormal Lab Results - Last 24 Hours (Table) 03/17/21 03/18/21 03/18/21 Range/Units 11:18 00:40 07:39 WBC (3.8-10.6) k/uL RBC (4.30-5.90) m/uL Hgb (13.0-17.5) gm/dL Hct (39.0-53.0) % Neutrophils # (1.3-7.7) k/uL PT 13.8 H (9.0-12.0) sec INR 1.4 H (<1.2) ABG pH 7.51 H 7.50 H (7.35-7.45) ABG pCO2 33 L (35-45) mmHg ABG pO2 76 L (83-108) mmHg ABG HCO3 26 H 27 H (21-25) mmol/L ABG Total CO2 28 H (19-24) mmol/L ABG O2 Saturation 97.9 H 97.1 H (94-97) % Chloride (98-107) mmol/L BUN (9-20) mg/dL Creatinine (0.66-1.25) mg/dL Glucose (74-99) mg/dL Calcium (8.4-10.2) mg/dL Total Protein (6.3-8.2) g/dL Albumin (3.5-5.0) g/dL 03/18/21 03/18/21 Range/Units 07:39 07:39 WBC 11.5 H (3.8-10.6) k/uL RBC 3.53 L (4.30-5.90) m/uL Hgb 12.1 L (13.0-17.5) gm/dL Hct 35.3 L (39.0-53.0) % Neutrophils # 9.1 H (1.3-7.7) k/uL PT (9.0-12.0) sec INR (<1.2) ABG pH (7.35-7.45) ABG pCO2 (35-45) mmHg ABG pO2 (83-108) mmHg ABG HCO3 (21-25) mmol/L ABG Total CO2 (19-24) mmol/L ABG O2 Saturation (94-97) % Chloride 110 H (98-107) mmol/L BUN 4 L (9-20) mg/dL Creatinine 0.52 L (0.66-1.25) mg/dL Glucose 105 H (74-99) mg/dL Calcium 7.6 L (8.4-10.2) mg/dL Total Protein 5.2 L (6.3-8.2) g/dL Albumin 2.4 L (3.5-5.0) g/dL Assessment and Plan Assessment: This is a 55-year-old male was brought into the emergency room after he was found by one of the neighbors covered in feces but responsive with empty bottles of alcohol around him be transferred to the hospital upon arrival he was cleaned up and was found to be hallucinating suggestive of being in DTs for which she was started on benzodiazepines per CIWA scale. CT of the head no acute pathology CT of the face showed old left orbital fracture inferiorly X-ray of the right elbow showed olecranon process spur with some soft tissue swelling EKG showed sinus rhythm Alcohol level was <10 Assessment: Alcohol abuse with alcohol withdrawal syndrome Delirium tremens Rhabdomyolysis Encephalopathy with hallucinations Plan Benzodiazepines per CIWA scale IV fluid hydration Thiamine Seizure precautions Fall precautions Computed tomography scan of the head showed no acute findings. Consulted neurology and psychiatry for further evaluation EEG was abnormal with generalized cerebral dysfunction and evidence of toxic metabolic encephalopathy Acute toxo metabolic encephalopathy Sepsis without septic shock Concerns about meningitis Started on broad spectrum antibiotic with vancomycin, ceftriaxone, and acyclovir Blood gas showed no evidence of acute CO2 narcosis Chest x-ray with questionable pneumonia LP ordered Intensive care consulted for possible transfer to ICU/intubation if needed Poor living condition Recurrent episodes of hospital admission for alcohol abuse Severo. life stressor with possible major depression Plan We will reconsult psychiatry when mentation improves pass worker consultation Macrocytic anemia mild Most likely secondary to alcohol abuse No reported GI bleeding Multiple skin abrasions Left eye bruising No acute fractures identified Hypernatremia Improved with IV fluid GI prophylaxis PPI CODE STATUS: Full code DVT prophylaxis: Mechanical Discussed with: Patient, ER, RN Anticipated length of stay more than [address]: Pending clinical course A total of 65 minutes was spent on the care of this complex patient more than 50% of the time was spent in counseling and care coordination.
[2021-03-18] MEDS: amLODIPine 5 MG TAB PO SCH ×2 (09:40→21:51)
[2021-03-18] MEDS: lisinopriL 10 MG TAB PO SCH (09:40)
[2021-03-18] MEDS: FOLIC ACID 1 MG TAB PO SCH (09:40)
[2021-03-18] MEDS: VANCOMYCIN 1,500 MG in SODIUM CHLORIDE 0.9% 250 ML IVPB SCH ×2 (10:34→18:28)
[2021-03-18] MEDS: DEXTROSE 5%-0.45% NACL 1,000 ML IV SCH ×2 (10:35→17:01)
--- NOTE | 2021-03-18 11:51 | P.PCN ---
Date of Procedure: 03/18/21 Procedure(s) Performed: Preoperative diagnosis: Meningitis Post operative diagnoses: Meningitis Procedure= lumbar puncture Anesthesia local infiltration with lidocaine 1% 4 mL. Condition: stable Complication: none. Description of the procedure procedure risk and benefits discussed with the family, consent signed. Patient in his room ,placed in lateral position ( right side down ), back prepped with chlorhexidine 3 times been local infiltration of the skin and subcutaneous tissue with lidocaine 1% 2 mL for skin and subcu interstitial frustrations at L4 5 levels then 20-gauge Quincke-type needle advanced slowly at L4- 5 interlaminar space there was positive cerebrospinal fluid (after 3 attemptes , patient was uncooperative and moving while I was doing the procedure because he was not found to command ) the CSF was tinged with blood which is cleared slowly , no paresthesia ,total of 7-8 ML of cer ebrospinal fluid collected in 3 different tubes 2-2-1/2 mL in each, then the needle removed and a Band-Aid applied , further management as per primary team.
[2021-03-18 12:03] LABS: Glucose,Whole Blood 99 mg/dL (75-99)
[2021-03-18 13:47] LABS: Glucose,CSF 69 mg/dL (40-70); Total Protein,CSF 226 mg/dL (12-60)
[2021-03-18 14:30] LABS: Appearance,CSF Bloody; CSF Tube Number 3; Red Blood Cell,CSF 5175 u/L (0-10)
[2021-03-18 14:33] LABS: Nucleated Cells, CSF 18 u/L (0-5)
[2021-03-18 14:42] LABS: Diff, Total Cells Cnt, CSF 100; Mononuclear WBC,CSF 15 %; Polynuclear WBC,CSF 85 %
[2021-03-18 14:43] LABS: Red Blood Cell, CSF Fresh 100 %
[2021-03-18 14:47] LABS: Glucose,Whole Blood 96 mg/dL (75-99)
[2021-03-18] MEDS: LORazepam 2 MG/ML INJ IV PRN (15:13)
--- NOTE | 2021-03-18 15:35 | P.PN ---
Subjective Progress Note Date: 03/18/21 Patient was seen for a follow-up. Patient's friend was also present today. Patient continues to be very encephalopathic. Restless, does not communicate much. Patient states just a few words, like "yes", "no", "all right". Patient not able to tell me his name. Patient's severely encephalopathic, appears slightly worse. Objective - Vital Signs Vital signs: Vital Signs Temp 99.7 F H 03/18/21 08:15 Pulse 128 H 03/18/21 08:15 Resp 24 03/18/21 08:15 BP 138/83 03/18/21 08:15 Pulse Ox 90 L 03/18/21 08:15 Intake & Output 03/17/21 03/18/21 03/18/21 18:59 06:59 18:59 Intake Total 0 Output Total 350 400 Balance -350 -400 Weight 61.5 kg 61.5 kg Intake: Oral 0 Output: Urine 350 400 Other: Voiding Method External Catheter External Catheter External Catheter # Voids 2 1 1 # Bowel Movements 1 1 - Exam Patient continues to be significantly encephalopathic. Patient somewhat restless, does not answer to any question. Not able to tell me his name or name any object. Patient makes minimal eye contact. Pupils are round and reacting. Visual licea could not be tested. Face is symmetric. Patient moves all 4 extremities equally. Extraocular muscles are intact. Tone is equal bilaterally. Left ankle is painful. - Labs CBC & Chem 7: 03/18/21 07:39 03/18/21 07:39 Labs: Abnormal Lab Results - Last 24 Hours (Table) 03/18/21 03/18/21 03/18/21 Range/Units 00:40 07:39 07:39 WBC 11.5 H (3.8-10.6) k/uL RBC 3.53 L (4.30-5.90) m/uL Hgb 12.1 L (13.0-17.5) gm/dL Hct 35.3 L (39.0-53.0) % Neutrophils # 9.1 H (1.3-7.7) k/uL PT 13.8 H (9.0-12.0) sec INR 1.4 H (<1.2) ABG pH 7.50 H (7.35-7.45) ABG pO2 76 L (83-108) mmHg ABG HCO3 27 H (21-25) mmol/L ABG Total CO2 28 H (19-24) mmol/L ABG O2 Saturation 97.1 H (94-97) % Chloride (98-107) mmol/L BUN (9-20) mg/dL Creatinine (0.66-1.25) mg/dL Glucose (74-99) mg/dL Calcium (8.4-10.2) mg/dL Total Protein (6.3-8.2) g/dL Albumin (3.5-5.0) g/dL 03/18/21 Range/Units 07:39 WBC (3.8-10.6) k/uL RBC (4.30-5.90) m/uL Hgb (13.0-17.5) gm/dL Hct (39.0-53.0) % Neutrophils # (1.3-7.7) k/uL PT (9.0-12.0) sec INR (<1.2) ABG pH (7.35-7.45) ABG pO2 (83-108) mmHg ABG HCO3 (21-25) mmol/L ABG Total CO2 (19-24) mmol/L ABG O2 Saturation (94-97) % Chloride 110 H (98-107) mmol/L BUN 4 L (9-20) mg/dL Creatinine 0.52 L (0.66-1.25) mg/dL Glucose 105 H (74-99) mg/dL Calcium 7.6 L (8.4-10.2) mg/dL Total Protein 5.2 L (6.3-8.2) g/dL Albumin 2.4 L (3.5-5.0) g/dL Microbiology - Last 24 Hours (Table) 03/17/21 09:05 Blood Culture - Preliminary Blood No Growth after 24 hours Assessment and Plan Assessment: * 55-year-old male with history of alcoholism, was found at laying with fecal matter with multiple bruises, scratches and pressure sores over dependent areas, indicating patient has been on the floor for fairly long period of time. Last period of contact with his friends was on Sunday, 3 days prior to arrival. Patient has not improved clinically since arrival, continues to be significantly delirious/encephalopathic. 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 Patient now has developed temperature 101.4. Rule out meningitis encephalitis. * Hypertension * History of alcoholism * History of marijuana use. Plan: * Patient is not showing signs of improvement, appears slightly worse. Patient has not developed fever. Await lumbar puncture. Patient has been empirically started on acyclovir, vancomycin and ceftriaxone meningeal dose. Need to closely watch renal functions for acyclovir. * Await lumbar puncture. * EEG was performed, which was abnormal due to background slowing of moderate to severe degree. This is suggestive of generalized cerebral dysfunction, as can be seen with toxic metabolic encephalopathy or due to diffuse structural brain abnormality. No epileptiform activity was seen. * Carotid Doppler was technically difficult due to patient's inability to hold still. No hemodynamically significant ICA stenosis identified on either side. Antegrade flow in both vertebral arteries. * B12 582, folate 5.7, TSH 1.77, RPR nonreactive. We will start folate replacement. B6 and MMA pending. * Thiamine, folate. [facility] protocol. * Left ankle x-ray negative for fracture. * Await MRI of the brain with and without contrast (MRI scanner was down yesterday, could not get done). * We will follow clinically. Update 2:43 PM: Spinal fluid examination revealed glucose 64 (40-70), proteins 226 (12-60), total WBC count in CSF 18, out of its 15% monocytes and 85% polynuclear's. Patient probably has bacterial meningitis. Patient already has been started on ceftriaxone and vancomycin as of yesterday. Also empirically covered by acyclovir. Patient is being transferred to ICU. MRI of the brain revealed mild atrophy. Mild subependymal white matter increased signal around the lateral ventricles measuring up to 5 mm in thickness. No evidence of cortical infarct.
[2021-03-18] MEDS ORDERED: VANCOMYCIN TROUGH DUE 1 EACH MISC MISCELLANE ONE (16:00)
--- NOTE | 2021-03-18 16:20 | P.PN ---
Subjective Progress Note Date: 03/18/21 This a 55-year-old white male patient who was admitted to the hospital on 2020 when he was found delirious and confused by his neighbor and his home. Patient was found laying on the floor, in his own feces, he had a bunch alcohol bottles lying around him. he had multiple bruises and abrasions in different stages of healing. He has a hematoma to his left eye , and abrasions on his knees and lower extremities. Tendon has a history of mathews abuse, eats marijuana edibles. Drug screen was positive for marijuana, benzodiazepines. His alcohol level was less than 10. Brain CT showed no acute intracranial abnormality, no fracture, cervical spine, additional spondylotic changes in the cervical spine. CT of the facial bones showed evidence of old fracture of the floor of the left bony orbit, no acute fractures. Initial chest x-ray showed minimal subsegmental atelectasis in the right lung base without change. EKG showed sinus rhythm. Initial blood work showed a white count of 7.8, hemoglobin 12.3, INR of 1.2, sodium was 153, potassium 3.4, chloride is 115, CO2 is 24, B1 and creatinine 0.74, troponin was 0.016. Patient was started on benzodiazepines in the form of Ativan per [facility] protocol. Neurology consultation was obtained. Psychiatric services are following. Patient is on thiamine and folate per [facility] protocol. ABG showed moderate to severe degree of slowing, consistent with toxic metabolic encephalopathy, no epileptiform discharges were seen. This morning patient started spiking fevers with a temp of 101.4F, he is also requiring supplemental oxygen currently at 2 L with a pulse ox of 93-97%, he is receiving Valium and when necessary Ativan. Quite lethargic, confused, he opens eyes to voice, however he is not able to provide any meaningful verbal responses. Today's chest x-ray has been reviewed showing right basilar patchy infiltrate and/or atelectasis. Patient was placed on empiric antibiotics in the form of Rocephin and vancomycin. In view of altered mentation and fever lumbar puncture was requested however anesthesia was unable to perform it because Lovenox was given this morning. We were consulted in view of depressed level of consciousness related to benzodiazepines and possibility of needing to intubate the patient placement on mechanical ventilator. Blood gas has been obtained showing pO2 of 85, pCO2 of 33, pH of 7.51 this was done on FiO2 of 28%, patient is breathing fairly comfortably, does not appear to be in any acute distress, head of the bed is up 35, he is currently on 2 L of oxygen, his pulse ox is 97%. No coughing or wheezing. He continues on empiric antibiotics. On today's evaluation of a 2020, the patient is essentially the same. No major improvement in his underlying mental status. The patient remains encephalopathic. He is unable to say. This is 50 gases some few words such as yes or no. Unable to follow any commands. His been having also episodes of fever. Based on all this, the patient underwent a lumbar puncture suspecting encephalitis. No neck stiffness. The lumbar puncture was completed and the patient was found to have elevated CSF protein. The total white cell count was 18. The patient had 85% polys tear cells and 50% mononuclear cells. The CSF protein was 226. Glucose is a 69. Patient was also covered with broad-spectrum antibiotics including a combination of Rocephin and vancomycin. The patient is also on acyclovir IV 1 g 3 times a day. The white cell count is 11.5 with hemoglobin of 12.1. INR is at 1.4. BUN is at 4 with a creatinine of 0.5. Rest of the electrodes are within normal limits. No seizure activity has been noted. EEG was done and was quite abnormal due to background slowing and moderate to severe slowing of the EEG activity suggestive of generalized cerebral dysfunction. Neurology is on the case for now. In terms of alcohol withdrawal, delirium tremors, the patient is currently on Ativan based on the CIWA protocol. The patient is also on D5 half-normal saline today to 100 mL an hour. The patient will be transferred to the intensive care unit for further monitoring. Objective - Vital Signs Vital signs: Vital Signs Temp 101.4 F H 03/18/21 15:00 Pulse 134 H 03/18/21 15:30 Resp 59 H 03/18/21 15:30 BP 145/94 03/18/21 15:20 Pulse Ox 95 03/18/21 15:30 Intake & Output 03/17/21 03/18/21 03/18/21 18:59 06:59 18:59 Intake Total 0 100 Output Total 350 480 Balance -350 -380 Weight 61.5 kg 61.5 kg Intake: Intake, IV Titration 100 Amount Dextrose 5%-0.45% NaCl 1, 100 000 ml @ 100 mls/hr IV . Q10H [facility] Rx#:[id number] Oral 0 Output: Urine 350 480 Other: Voiding Method External Catheter External Catheter External Catheter # Voids 2 1 1 # Bowel Movements 1 1 - Exam GENERAL EXAM: Lethargic, confused, 55-year-old white male, 2 L of oxygen and the pulse ox 97%, patient has bruises and abrasions on his face and left eye, knees and feet comfortable in no apparent distress. HEAD: Normocephalic/atraumatic. EYES: Normal reaction of pupils, equal size. Conjunctiva pink, sclera white. NOSE: Clear with pink turbinates. THROAT: No erythema or exudates. NECK: No masses, no JVD, no thyroid enlargement, no adenopathy. CHEST: No chest wall deformity. Symmetrical expansion. LUNGS: Equal air entry with dim breath sounds, no crackles CVS: Regular rate and rhythm, normal S1 and S2, no gallops, no murmurs, no rubs ABDOMEN: Soft, nontender. No hepatosplenomegaly, normal bowel sounds, no guarding or rigidity. EXTREMITIES: No clubbing, no edema, no cyanosis, 2+ pulses and upper and lower extremities. MUSCULOSKELETAL: Muscle strength and tone normal. SPINE: No scoliosis or deformity SKIN: No rashes CENTRAL NERVOUS SYSTEM: Confused No focal deficits, tone is normal in all 4 extremities. - Labs CBC & Chem 7: 03/18/21 07:39 03/18/21 07:39 Labs: Abnormal Lab Results - Last 24 Hours (Table) 03/18/21 03/18/21 03/18/21 Range/Units 00:40 07:39 07:39 WBC 11.5 H (3.8-10.6) k/uL RBC 3.53 L (4.30-5.90) m/uL Hgb 12.1 L (13.0-17.5) gm/dL Hct 35.3 L (39.0-53.0) % Neutrophils # 9.1 H (1.3-7.7) k/uL PT 13.8 H (9.0-12.0) sec INR 1.4 H (<1.2) ABG pH 7.50 H (7.35-7.45) ABG pO2 76 L (83-108) mmHg ABG HCO3 27 H (21-25) mmol/L ABG Total CO2 28 H (19-24) mmol/L ABG O2 Saturation 97.1 H (94-97) % Chloride (98-107) mmol/L BUN (9-20) mg/dL Creatinine (0.66-1.25) mg/dL Glucose (74-99) mg/dL Calcium (8.4-10.2) mg/dL Total Protein (6.3-8.2) g/dL Albumin (3.5-5.0) g/dL CSF RBC (0-10) u/L CSF Tot Nucleated Cells (0-5) u/L CSF Total Protein (12-60) mg/dL 03/18/21 03/18/21 Range/Units 07:39 11:35 WBC (3.8-10.6) k/uL RBC (4.30-5.90) m/uL Hgb (13.0-17.5) gm/dL Hct (39.0-53.0) % Neutrophils # (1.3-7.7) k/uL PT (9.0-12.0) sec INR (<1.2) ABG pH (7.35-7.45) ABG pO2 (83-108) mmHg ABG HCO3 (21-25) mmol/L ABG Total CO2 (19-24) mmol/L ABG O2 Saturation (94-97) % Chloride 110 H (98-107) mmol/L BUN 4 L (9-20) mg/dL Creatinine 0.52 L (0.66-1.25) mg/dL Glucose 105 H (74-99) mg/dL Calcium 7.6 L (8.4-10.2) mg/dL Total Protein 5.2 L (6.3-8.2) g/dL Albumin 2.4 L (3.5-5.0) g/dL CSF RBC 5175 H (0-10) u/L CSF Tot Nucleated Cells 18 H* (0-5) u/L CSF Total Protein 226 H (12-60) mg/dL Microbiology - Last 24 Hours (Table) 03/18/21 11:35 CSF Gram Stain - Preliminary Cerebral Spinal Fluid CSF Culture - Preliminary 03/17/21 09:05 Blood Culture - Preliminary Blood No Growth after 24 hours Assessment and Plan Plan: 1 altered mental status, encephalopathy. Consider delirium tremors. Consider underlying encephalitis based on abnormal CSF findings with elevated protein and some mild elevation of the white cell count. The patient is currently on the [facility] protocol. The patient is also on a combination of antibiotics including IV Rocephin, vancomycin and acyclovir. HSV by PCR in the CSF was also sent and the results of the pending. Cultures still pending. 2 fever 3 acute hypoxic respiratory failure with some limited extension fixation of the lung bases. Consider aspiration. 2 L. 4 Alcoholism 5 Very Poor Baseline Performance and Functional Status with Multiple Falls at Home Related to Alcoholism 6 Multiple Skin Abrasions Involving the Lower Extremities in Addition to Abnormal Was Involving the Left Eye. CAT Scan of the Face Showed No Evidence of Any Fractures. 7 Hypertension 8 History of Hypernatremia Related to Intravascular Depletion and Dehydration, Recovered Plan Transfer this patient intensive care unit for further monitoring and higher level of care Continue same antibiotic coverage pending cultures of the CSF. No clear evidence of any bacterial meningitis. Could be encephalitis/bilateral. I suspect alteration of mental status essentially related to chronic alcoholism and withdrawal. His presentation is more consistent with delirium tremens due to chronic alcoholism and the patient with her incentive of alcohol recently. As such, we'll continue the course. We'll continue thiamine. We'll continue with the [facility]WA protocol. Hemodynamically stable. Pigmented aspiration. Monitor fever pattern. aspiration precautions. We'll continue to follow. Repeat chest x-ray in the morning.
--- NOTE | 2021-03-18 16:53 | PN ---
PROGRESS NOTE DATE OF SERVICE: 03/18/2021 REASON FOR FOLLOWUP: Fever, concerning for aspiration pneumonia versus encephalitis. INTERVAL HISTORY: The patient's overall fever pattern has improved. The patient is status post LP this morning, which was mostly traumatic. The patient is hemodynamically stable, still having mentation getting transferred to the ICU. No vomiting, diarrhea or other changes reported by the nursing staff. PHYSICAL EXAMINATION: Blood pressure 132/88 with a pulse of 126, temperature 100. He is 96% on 2 L nasal cannula. GENERAL DESCRIPTION: General description is a middle-aged male lying in bed in no distress. RESPIRATORY SYSTEM: Unlabored breathing. Decreased breath sounds at the bases. No wheeze. HEART: S1, S2. Regular rate and rhythm. ABDOMEN: Soft. No tenderness. EXTREMITIES: No edema of the feet. LABS: Hemoglobin is 12.1, white count 11.5, BUN of creatinine 0.52. LP shows red blood cells of 5175, is 18. Glucose was normal at 69. Protein is 226. DIAGNOSTIC IMPRESSION AND PLAN: Patient with acute mental status changes in this patient admitted to hospital with possible drug overdose. Concern for possible aspiration pneumonia versus encephalitis. Clinical picture not suggestive of meningitis. Encephalitis not entirely excluded. Patient to continue with current antibiotic in addition to the acyclovir while waiting for the culture to finalize. Family at the bedside. Questions were answered. MMODL / IJN: [id number] /
[2021-03-18] MEDS: ACETAMINOPHEN SUPPOSITORY 650 MG SUPP RECTAL PRN ×2 (16:58→22:09)
--- NOTE | 2021-03-18 17:29 | MR ---
EXAMINATION TYPE: MR brain wo/w con DATE OF EXAM: 03/18/2021 COMPARISON: Fall. Altered mental status. HISTORY: AMS, fall, rule out encephalitis. CONTRAST: Standard multiplanar, multisequence MRI departmental protocol utilizing 10 mL intravenous Gadavist ga dolinium contrast. There is cerebral cortical atrophy. There is no mass effect nor midline shift. There is no evidence o f intracranial hemorrhage. Diffusion images show no evidence of an acute infarct. There is minimal linear increased signal in the periventricular white matter. This measures up to 5 m m in thickness. Exam limited slightly by motion. I see no evidence of lacunar infarct. The brainstem appears intact. Sella turcica appears normal. Corpus callosum is intact. There is no evidence of post erior fossa mass. There is normal enhancement of the venous sinuses. I see no pathologic enhancement. IMPRESSION: Mild atrophy. Mild subependymal white matter increased signal around the lateral ventricles measuring up to 5 mm in thickness. No evidence of cortical infarct.
--- NOTE | 2021-03-18 18:59 | XR ---
EXAMINATION TYPE: XR ankle complete bilateral DATE OF EXAM: 03/18/2021 COMPARISON: NONE HISTORY: Ankle pain TECHNIQUE: 3 views each ankle FINDINGS: There is bilateral plantar and Achilles calcaneal spur formation. Spurring is more on the l eft side. Ankle mortise appears intact bilaterally. There is soft tissue swelling around the left ank le. Subtalar joints appear intact. There is some spurring of the anterior malleolus of the right ankl e. IMPRESSION: Soft tissue swelling. Calcaneal spurring. No fracture seen.
[2021-03-18 21:29] LABS: Glucose,Whole Blood 108 mg/dL (75-99)
[2021-03-19] MEDS: VANCOMYCIN 1,500 MG in SODIUM CHLORIDE 0.9% 250 ML IVPB SCH ×3 (01:00→18:07)
[2021-03-19] MEDS: DEXTROSE 5%-0.45% NACL 1,000 ML IV SCH ×3 (01:02→23:14)
[2021-03-19] MEDS: LORazepam 2 MG/ML INJ IV PRN ×6 (02:18→23:25)
[2021-03-19 03:08] LABS: Glucose,Whole Blood 101 mg/dL (75-99)
[2021-03-19] MEDS: ACYCLOVIR SODIUM 1,000 MG in SODIUM CHLORIDE 0.9% 250 ML IVPB SCH ×2 (04:30→12:35)
[2021-03-19 05:38] LABS: ALT 24 U/L (4-49); AST 64 U/L (17-59); African American GFR (CKD) >90 (>60 ml/min/1.73 sqM); Albumin 2.1 g/dL (3.5-5.0); Alkaline Phosphatase 49 U/L (38-126); Anion Gap 5 mmol/L; Blood Urea Nitrogen 6 mg/dL (9-20); Calcium 7.4 mg/dL (8.4-10.2); Carbon Dioxide 23 mmol/L (22-30); Chloride 112 mmol/L (98-107); Glucose 115 mg/dL (74-99); Non-African American GFR(CKD) >90 (>60 ml/min/1.73 sqM); Potassium 3.9 mmol/L (3.5-5.1); Sodium 140 mmol/L (137-145); Total Bilirubin 0.6 mg/dL (0.2-1.3); Total Protein 4.8 g/dL (6.3-8.2)
[2021-03-19] MEDS: THIAMINE 100 MG TAB PO SCH ×2 (06:30→16:58)
[2021-03-19] MEDS: PANTOPRAZOLE 40 MG TABLET PO SCH (06:30)
[2021-03-19 07:05] LABS: Basophils # (A) 0.1 k/uL (0-0.2); Basophils % (A) 0 %; Eosinophils # (A) 0.2 k/uL (0-0.7); Eosinophils % (A) 2 %; HCT 37.4 % (39.0-53.0); HGB 12.3 gm/dL (13.0-17.5); Lymphocytes # (A) 1.2 k/uL (1.0-4.8); Lymphocytes % (A) 10 %; MCH 33.8 pg (25.0-35.0); MCHC 32.9 g/dL (31.0-37.0); MCV 102.5 fL (80.0-100.0); Macrocytosis Slight; Monocytes # (A) 0.7 k/uL (0-1.0); Monocytes % (A) 6 %; Neutrophils # (A) 9.4 k/uL (1.3-7.7); Neutrophils % (A) 80 %; Platelet Count 193 k/uL (150-450); RBC 3.65 m/uL (4.30-5.90); RDW 14.6 % (11.5-15.5); WBC 11.8 k/uL (3.8-10.6)
--- NOTE | 2021-03-19 07:38 | XR ---
EXAMINATION TYPE: XR chest 1V portable DATE OF EXAM: 03/19/2021 COMPARISON: Chest x-ray 03/17/2021 HISTORY: Pneumonia TECHNIQUE: Single frontal view of the chest is obtained. FINDINGS: The right costophrenic angle is not included on the exam. Cardiac mediastinal silhouette i s stable. No evident pneumothorax or pleural effusion. There are overlying leads. Some patchy basilar density suspected. IMPRESSION: Subsegmental basilar atelectatic change. Follow-up PA and lateral chest x-ray may be of benefit when stable.
[2021-03-19] MEDS: lisinopriL 10 MG TAB PO SCH (08:28)
[2021-03-19] MEDS: amLODIPine 5 MG TAB PO SCH ×2 (08:28→20:14)
[2021-03-19] MEDS: FOLIC ACID 1 MG TAB PO SCH (08:28)
--- NOTE | 2021-03-19 09:37 | P.PN ---
Subjective Progress Note Date: 03/19/21 This a 55-year-old white male patient who was admitted to the hospital on 2020 when he was found delirious and confused by his neighbor and his home. Patient was found laying on the floor, in his own feces, he had a bunch alcohol bottles lying around him. he had multiple bruises and abrasions in different stages of healing. He has a hematoma to his left eye , and abrasions on his knees and lower extremities. Tendon has a history of mathews abuse, eats marijuana edibles. Drug screen was positive for marijuana, benzodiazepines. His alcohol level was less than 10. Brain CT showed no acute intracranial abnormality, no fracture, cervical spine, additional spondylotic changes in the cervical spine. CT of the facial bones showed evidence of old fracture of the floor of the left bony orbit, no acute fractures. Initial chest x-ray showed minimal subsegmental atelectasis in the right lung base without change. EKG showed sinus rhythm. Initial blood work showed a white count of 7.8, hemoglobin 12.3, INR of 1.2, sodium was 153, potassium 3.4, chloride is 115, CO2 is 24, B1 and creatinine 0.74, troponin was 0.016. Patient was started on benzodiazepines in the form of Ativan per [facility] protocol. Neurology consultation was obtained. Psychiatric services are following. Patient is on thiamine and folate per [facility] protocol. ABG showed moderate to severe degree of slowing, consistent with toxic metabolic encephalopathy, no epileptiform discharges were seen. This morning patient started spiking fevers with a temp of 101.4F, he is also requiring supplemental oxygen currently at 2 L with a pulse ox of 93-97%, he is receiving Valium and when necessary Ativan. Quite lethargic, confused, he opens eyes to voice, however he is not able to provide any meaningful verbal responses. Today's chest x-ray has been reviewed showing right basilar patchy infiltrate and/or atelectasis. Patient was placed on empiric antibiotics in the form of Rocephin and vancomycin. In view of altered mentation and fever lumbar puncture was requested however anesthesia was unable to perform it because Lovenox was given this morning. We were consulted in view of depressed level of consciousness related to benzodiazepines and possibility of needing to intubate the patient placement on mechanical ventilator. Blood gas has been obtained showing pO2 of 85, pCO2 of 33, pH of 7.51 this was done on FiO2 of 28%, patient is breathing fairly comfortably, does not appear to be in any acute distress, head of the bed is up 35, he is currently on 2 L of oxygen, his pulse ox is 97%. No coughing or wheezing. He continues on empiric antibiotics. On today's evaluation of a 2020, the patient is essentially the same. No major improvement in his underlying mental status. The patient remains encephalopathic. He is unable to say. This is 50 gases some few words such as yes or no. Unable to follow any commands. His been having also episodes of fever. Based on all this, the patient underwent a lumbar puncture suspecting encephalitis. No neck stiffness. The lumbar puncture was completed and the patient was found to have elevated CSF protein. The total white cell count was 18. The patient had 85% polys tear cells and 50% mononuclear cells. The CSF protein was 226. Glucose is a 69. Patient was also covered with broad-spectrum antibiotics including a combination of Rocephin and vancomycin. The patient is also on acyclovir IV 1 g 3 times a day. The white cell count is 11.5 with hemoglobin of 12.1. INR is at 1.4. BUN is at 4 with a creatinine of 0.5. Rest of the electrodes are within normal limits. No seizure activity has been noted. EEG was done and was quite abnormal due to background slowing and moderate to severe slowing of the EEG activity suggestive of generalized cerebral dysfunction. Neurology is on the case for now. In terms of alcohol withdrawal, delirium tremors, the patient is currently on Ativan based on the CIWA protocol. The patient is also on D5 half-normal saline today to 100 mL an hour. The patient will be transferred to the intensive care unit for further monitoring. 2020, the patient is still encephalopathic. Slightly more rested and more awake compared to yesterday. Nevertheless he remains encephalopathic. No neck stiffness. No headaches. MRI of the brain was done and showed no acute abnormalities. As stated earlier, his CSF evaluation was not consistent with bacterial meningitis. HSV by PCR still pending. He remains on vancomycin. He remains on Rocephin. He remains on acyclovir. He is receiving Ativan per CIWA protocol. He is on D5 half-normal saline at the rate of 100 mL an hour. Hemodynamically stable. Pulse ox is 98% on 2 L of oxygen by nasal cannula. Chest x-ray shows no evidence of any pneumonia. Note that his urine drug screen was positive for benzodiazepines and marijuana. His blood work from today shows a WD second of 11.8 with hemoglobin of 12.3. Platelets is at 193. Electrolytes are normal. Renal functions are normal. Hepatic function is normal. Albumin is at 2.1 with a protein of 4.8. Objective - Vital Signs Vital signs: Vital Signs Temp 99.5 F 03/19/21 08:00 Pulse 115 H 03/19/21 08:00 Resp 28 H 03/19/21 08:00 BP 121/93 03/19/21 08:00 Pulse Ox 99 03/19/21 08:00 Intake & Output 03/18/21 03/19/21 03/19/21 18:59 06:59 18:59 Intake Total 200 2000 200 Output Total 655 625 105 Balance -455 1375 95 Weight 61.5 kg 102.9 kg Intake: IV 1900 200 Acyclovir Sodium 1,000 mg 500 In Sodium Chloride 0.9% 250 ml @ 270 mls/hr IVPB Q8HR@0400,1200,2000 [facility] Rx#:[id number] Dextrose 5%-0.45% NaCl 1, 1100 200 000 ml @ 100 mls/hr IV . Q10H [facility] Rx#:[id number] Vancomycin 1,500 mg In 250 Sodium Chloride 0.9% 250 ml @ 125 mls/hr IVPB Q8H [facility] Rx#:[id number] cefTRIAXone 2 gm In 50 Sodium Chloride 0.9% 50 ml @ 100 mls/hr IVPB Q12HR [facility] Rx#:[id number] Intake, IV Titration 200 100 Amount Dextrose 5%-0.45% NaCl 1, 200 100 000 ml @ 100 mls/hr IV . Q10H [facility] Rx#:[id number] Output: Urine 655 625 105 Other: Voiding Method External Catheter Indwelling Catheter # Voids 1 # Bowel Movements 1 1 1 - Exam GENERAL EXAM: Lethargic, confused, 55-year-old white male, 2 L of oxygen and the pulse ox 97%, patient has bruises and abrasions on his face and left eye, knees and feet comfortable in no apparent distress. HEAD: Normocephalic/atraumatic. EYES: Normal reaction of pupils, equal size. Conjunctiva pink, sclera white. NOSE: Clear with pink turbinates. THROAT: No erythema or exudates. NECK: No masses, no JVD, no thyroid enlargement, no adenopathy. CHEST: No chest wall deformity. Symmetrical expansion. LUNGS: Equal air entry with dim breath sounds, no crackles CVS: Regular rate and rhythm, normal S1 and S2, no gallops, no murmurs, no rubs ABDOMEN: Soft, nontender. No hepatosplenomegaly, normal bowel sounds, no guarding or rigidity. EXTREMITIES: No clubbing, no edema, no cyanosis, 2+ pulses and upper and lower extremities. MUSCULOSKELETAL: Muscle strength and tone normal. SPINE: No scoliosis or deformity SKIN: No rashes CENTRAL NERVOUS SYSTEM: Confused No focal deficits, tone is normal in all 4 extremities. - Labs CBC & Chem 7: 03/19/21 06:46 03/19/21 04:38 Labs: Abnormal Lab Results - Last 24 Hours (Table) 03/18/21 03/18/21 03/19/21 Range/Units 11:35 21:27 03:07 WBC (3.8-10.6) k/uL RBC (4.30-5.90) m/uL Hgb (13.0-17.5) gm/dL Hct (39.0-53.0) % MCV (80.0-100.0) fL Neutrophils # (1.3-7.7) k/uL Chloride (98-107) mmol/L BUN (9-20) mg/dL Creatinine (0.66-1.25) mg/dL Glucose (74-99) mg/dL POC Glucose (mg/dL) 108 H 101 H (75-99) mg/dL Calcium (8.4-10.2) mg/dL AST (17-59) U/L Total Protein (6.3-8.2) g/dL Albumin (3.5-5.0) g/dL CSF RBC 5175 H (0-10) u/L CSF Tot Nucleated Cells 18 H* (0-5) u/L CSF Total Protein 226 H (12-60) mg/dL 03/19/21 03/19/21 Range/Units 04:38 06:46 WBC 11.8 H (3.8-10.6) k/uL RBC 3.65 L (4.30-5.90) m/uL Hgb 12.3 L (13.0-17.5) gm/dL Hct 37.4 L (39.0-53.0) % MCV 102.5 H (80.0-100.0) fL Neutrophils # 9.4 H (1.3-7.7) k/uL Chloride 112 H (98-107) mmol/L BUN 6 L (9-20) mg/dL Creatinine 0.46 L (0.66-1.25) mg/dL Glucose 115 H (74-99) mg/dL POC Glucose (mg/dL) (75-99) mg/dL Calcium 7.4 L (8.4-10.2) mg/dL AST 64 H (17-59) U/L Total Protein 4.8 L (6.3-8.2) g/dL Albumin 2.1 L (3.5-5.0) g/dL CSF RBC (0-10) u/L CSF Tot Nucleated Cells (0-5) u/L CSF Total Protein (12-60) mg/dL Microbiology - Last 24 Hours (Table) 03/18/21 11:35 CSF Gram Stain - Preliminary Cerebral Spinal Fluid CSF Culture - Preliminary 03/17/21 09:05 Blood Culture - Preliminary Blood No Growth after 24 hours Assessment and Plan Plan: 1 altered mental status, encephalopathy. Consider delirium tremors. Consider underlying encephalitis based on abnormal CSF findings with elevated protein and some mild elevation of the white cell count. The patient is currently on the [facility] protocol. The patient is also on a combination of antibiotics including IV Rocephin, vancomycin and acyclovir. HSV by PCR in the CSF was also sent and the results of the pending. Cultures still pending. This is not consistent with bacterial meningitis and antibiotics can be discontinued. Awaiting HSV by PCR. Neurologically, slightly improved compared to yesterday. MRI of the brain was negative. 2 fever, episodic, none for now 3 acute hypoxic respiratory failure with some limited extension fixation of the lung bases. Consider aspiration. 2 L. 4 Alcoholism 5 Very Poor Baseline Performance and Functional Status with Multiple Falls at Home Related to Alcoholism 6 Multiple Skin Abrasions Involving the Lower Extremities in Addition to Abnormal Was Involving the Left Eye. CAT Scan of the Face Showed No Evidence of Any Fractures. 7 Hypertension 8 History of Hypernatremia Related to Intravascular Depletion and Dehydration, Recovered Plan Discontinue the Rocephin and the vancomycin Continue the IV acyclovir pending HSV by PCR in the CSF Chest x-ray shows no evidence of an aspiration pneumonia and he remains on 2 L of oxygen by nasal cannula Continue IV fluids Ativan per [facility] protocol. MRI of the brain was negative Aspiration precautions Keep in the ICU. Long-term prognosis poor baseline above-mentioned comorbidities. We'll continue to follow.
[2021-03-19 10:52] LABS: Glucose,Whole Blood 114 mg/dL (75-99)
--- NOTE | 2021-03-19 11:59 | P.PN ---
Subjective Progress Note Date: 03/19/21 Patient's overall condition did not change compared to yesterday. He is still encephalopathic and only responding to sternal rub by opening his eyes. Patient had multiple high-grade fevers throughout the day yesterday and last night Objective - Vital Signs Vital signs: Vital Signs Temp 99.5 F 03/19/21 08:00 Pulse 121 H 03/19/21 11:00 Resp 30 H 03/19/21 11:00 BP 135/93 03/19/21 11:00 Pulse Ox 97 03/19/21 11:00 Intake & Output 03/18/21 03/19/21 03/19/21 18:59 06:59 18:59 Intake Total 200 2000 700 Output Total 655 625 230 Balance -455 1375 470 Weight 61.5 kg 102.9 kg Intake: IV 1900 700 Acyclovir Sodium 1,000 mg 500 In Sodium Chloride 0.9% 250 ml @ 270 mls/hr IVPB Q8HR@0400,1200,2000 [facility] Rx#:[id number] Dextrose 5%-0.45% NaCl 1, 1100 400 000 ml @ 100 mls/hr IV . Q10H [facility] Rx#:[id number] Vancomycin 1,500 mg In 250 250 Sodium Chloride 0.9% 250 ml @ 125 mls/hr IVPB Q8H [facility] Rx#:[id number] cefTRIAXone 2 gm In 50 50 Sodium Chloride 0.9% 50 ml @ 100 mls/hr IVPB Q12HR [facility] Rx#:[id number] Intake, IV Titration 200 100 Amount Dextrose 5%-0.45% NaCl 1, 200 100 000 ml @ 100 mls/hr IV . Q10H [facility] Rx#:[id number] Output: Urine 655 625 230 Other: Voiding Method External Catheter Indwelling Catheter # Voids 1 # Bowel Movements 1 1 1 - Exam General: The patient is very confused and lethargic Eye: there is normal conjunctiva bilaterally. Neck: The neck is supple, there is no JVD. Cardiovascular: Normal S1-S2, no S3-S4, no murmurs. Respiratory: Lungs clear to auscultation bilaterally Gastrointestinal: Abdomen is soft, nontender Musculoskeletal: There is +1 pedal edema. Skin: Skin is warm and dry - Labs CBC & Chem 7: 03/19/21 06:46 03/19/21 04:38 Labs: Abnormal Lab Results - Last 24 Hours (Table) 03/18/21 03/18/21 03/19/21 Range/Units 11:35 21:27 03:07 WBC (3.8-10.6) k/uL RBC (4.30-5.90) m/uL Hgb (13.0-17.5) gm/dL Hct (39.0-53.0) % MCV (80.0-100.0) fL Neutrophils # (1.3-7.7) k/uL Chloride (98-107) mmol/L BUN (9-20) mg/dL Creatinine (0.66-1.25) mg/dL Glucose (74-99) mg/dL POC Glucose (mg/dL) 108 H 101 H (75-99) mg/dL Calcium (8.4-10.2) mg/dL AST (17-59) U/L Total Protein (6.3-8.2) g/dL Albumin (3.5-5.0) g/dL CSF RBC 5175 H (0-10) u/L CSF Tot Nucleated Cells 18 H* (0-5) u/L CSF Total Protein 226 H (12-60) mg/dL 03/19/21 03/19/21 03/19/21 Range/Units 04:38 06:46 10:51 WBC 11.8 H (3.8-10.6) k/uL RBC 3.65 L (4.30-5.90) m/uL Hgb 12.3 L (13.0-17.5) gm/dL Hct 37.4 L (39.0-53.0) % MCV 102.5 H (80.0-100.0) fL Neutrophils # 9.4 H (1.3-7.7) k/uL Chloride 112 H (98-107) mmol/L BUN 6 L (9-20) mg/dL Creatinine 0.46 L (0.66-1.25) mg/dL Glucose 115 H (74-99) mg/dL POC Glucose (mg/dL) 114 H (75-99) mg/dL Calcium 7.4 L (8.4-10.2) mg/dL AST 64 H (17-59) U/L Total Protein 4.8 L (6.3-8.2) g/dL Albumin 2.1 L (3.5-5.0) g/dL CSF RBC (0-10) u/L CSF Tot Nucleated Cells (0-5) u/L CSF Total Protein (12-60) mg/dL Microbiology - Last 24 Hours (Table) 03/17/21 09:05 Blood Culture - Preliminary Blood No Growth after 48 hours 03/18/21 19:00 Anaerobic Culture - Preliminary Knee - Right 03/18/21 19:00 Wound Culture - Preliminary Knee - Right 03/18/21 11:35 CSF Gram Stain - Preliminary Cerebral Spinal Fluid CSF Culture - Preliminary Assessment and Plan Assessment: This is a 55-year-old male was brought into the emergency room after he was found by one of the neighbors covered in feces but responsive with empty bottles of alcohol around him be transferred to the hospital upon arrival he was cleaned up and was found to be hallucinating suggestive of being in DTs for which she was started on benzodiazepines per CIWA scale. CT of the head no acute pathology CT of the face showed old left orbital fracture inferiorly X-ray of the right elbow showed olecranon process spur with some soft tissue swelling EKG showed sinus rhythm Alcohol level was <10 Patient was transferred to the ICU for close monitoring on 03/18 Assessment: Alcohol abuse with alcohol withdrawal syndrome Delirium tremens Rhabdomyolysis Encephalopathy with hallucinations Plan Benzodiazepines per CIWA scale IV fluid hydration Thiamine Seizure precautions Fall precautions Computed tomography scan of the head showed no acute findings. MRI of the brain was no acute finding Consulted neurology and psychiatry for further evaluation EEG was abnormal with generalized cerebral dysfunction and evidence of toxic metabolic encephalopathy Acute toxo metabolic encephalopathy Sepsis without septic shock Concerns about meningitis, possibly viral Started on broad spectrum antibiotic with vancomycin, ceftriaxone, and acyclovir CSF fluid not consistent with bacterial meningitis. Vancomycin and ceftriaxone discontinued by ICU staff Awaiting HSV PCR Blood gas showed no evidence of acute CO2 narcosis Chest x-ray with questionable pneumonia Poor living condition Recurrent episodes of hospital admission for alcohol abuse Severo. life stressor with possible major depression Plan We will reconsult psychiatry when mentation improves call circuit worker consultation Macrocytic anemia mild Most likely secondary to alcohol abuse No reported GI bleeding Multiple skin abrasions Left eye bruising No acute fractures identified Hypernatremia Improved with IV fluid GI prophylaxis PPI CODE STATUS: Full code DVT prophylaxis: Mechanical Discussed with: Patient, ER, RN Anticipated length of stay more than [address]: Pending clinical course A total of 65 minutes was spent on the care of this complex patient more than 50% of the time was spent in counseling and care coordination.
--- NOTE | 2021-03-19 12:30 | P.CNOR ---
History of Present Illness - [facility] Consult date: 03/19/21 Consult reason: joint pain History of present illness: 55-year-old male who 4 days ago was found down in his home. Most of the history was obtained from chart review and his daughter over the phone as the patient is unable and unreliable for history at this time. 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 She states that he has had recent issues and has deteriorated since a divorce with his . 4 days ago he was found down in a pile of his own feces and unresponsive. He was brought to the emergency department for evaluation. Today the patient is unable to communicate very well he does moan and groan with pain he opens his eyes to his name however he is not oriented or alert. He has pain with passive motion left and right ankles. In speaking with her daughter she states that he has had pain in both of his ankles for some time and he has had swelling in both of his ankles for some time for which he takes a medication to decrease the swelling presumably a diuretic. She does deny a history of gout however denies a history of arthritis or trauma. Review of Systems Unable to obtain due to the patient's mental status Past Medical History Past Medical History: GERD/Reflux, Hypertension, Liver Disease Additional Past Medical History / Comment(s): seasonal allergies History of Any Multi-Drug Resistant Organisms: None Reported Past Surgical History: Hernia Repair Additional Past Surgical History / Comment(s): umbilical hernia repair 2012 Past Anesthesia/Blood Transfusion Reactions: Postoperative Nausea & Vomiting (PONV) Past Psychological History: No Psychological Hx Reported Smoking Status: Never smoker Past Alcohol Use History: Heavy Past Drug Use History: Prescription Drug Abuse - Past Family History Mother Family Medical History: Cancer, Diabetes Mellitus, Hypertension Additional Family Medical History / Comment(s): nonHodgkins lymphoma Father Family Medical History: Hypertension Medications and Allergies Home Medications Medication Instructions Recorded Confirmed Type Naltrexone HCl [Revia] 50 mg PO DAILY 02/05/19 03/14/21 History traZODone HCL 50 mg PO HS PRN 02/05/19 03/14/21 History Gabapentin [Neurontin] 100 mg PO TID 03/14/21 03/14/21 History Omeprazole 40 mg PO DAILY 03/14/21 03/14/21 History Promethazine HCl 12.5 mg PO DAILY PRN 03/14/21 03/14/21 History Vilazodone HCl [Viibryd] 40 mg PO DAILY 03/14/21 03/14/21 History amLODIPine BESYLATE/BENAZEPRIL 1 cap PO BID 03/14/21 03/14/21 History [amLODIPine BESYLATE/BENAZEPRIL 5-20 MG] tiZANidine HCL 4 mg PO TID 03/14/21 03/14/21 History Allergies Allergy/AdvReac Type Severity Reaction Status Date / Time bee venom protein (honey bee) Allergy Anaphylaxis Verified 03/14/21 18:27 Penicillins Allergy Unknown Verified 03/15/21 03:38 Sulfa (Sulfonamide Allergy Swelling Verified 03/14/21 18:27 Antibiotics) codeine AdvReac Nausea & Verified 03/14/21 18:27 Vomiting Physical Examination Osteopathic Statement: *. No significant issues noted on an osteopathic structural exam other than those noted in the History and Physical/Consult. Patient is alert and not oriented 3 appears appears in some distress unable to answer questions open eyes to sound and moans and groans for pain Patient has multiple abrasions on his knees as well as elbows and hands seconda ry to likely fall these are superficial in nature and scabbing There is TTP about the right and left ankles. The left seems to be worse there is pain with passive range of motion of the left ankle there is erythema surrounding the left ankle at this time which is mostly lateral-based. The patient is laying on his left side with this portion down and so could be related to this however there is somewhat of a cellulitic reaction around this area with erythema and edema which is 2+ and pitting. Patient also has edema throughout the right ankle as well which is 1+ and pitting. There is no pain with passive range of motion of the right ankle. Upper extremity and lower extremity muscle testing was unable to be performed to localize as the patient does not cooperate however he does move all 4 extremities with's good strength and spontaneity There is painless range of motion with logroll of bilateral hips there is painless range of motion of bilateral knees there is minimally painful range of motion of the right ankle however exquisitely painful range of motion of the left ankle passively. He has no pain with passive range of motion of any of the major joints of his upper extremities bilaterally They are intact to light touch sensation in L2 to S1 nerve distribution. DTR 2/4 all upper and lower extremities Patient has palpable dorsalis pedis was posterior tibial pulses. Palpable Rad Ulnar pulses b/l Compartments are soft and compressible. Patient shows a negative Homans Cranial nerves II through XII are grossly intact. Special Testing: No clonus bilaterally lower extremities negative Hoffmans bilaterally negative Babinskis bilaterally Results X-rays of bilateral ankles are reviewed and these demonstrate no acute fracture or dislocation. Bony alignment no abnormalities noted. No evidence of soft tissue swelling other than some subcu edema noted. CT of the head and neck is reviewed. Patient does have some spondylotic changes throughout the cervical spine C1 2 as well as occipital cervical joints appear stable. No fracture or dislocations noted MRI of the lumbar spine is pending at this time - Labs Labs: Abnormal Lab Results - Last 24 Hours (Table) 03/18/21 03/18/21 03/19/21 Range/Units 11:35 21:27 03:07 WBC (3.8-10.6) k/uL RBC (4.30-5.90) m/uL Hgb (13.0-17.5) gm/dL Hct (39.0-53.0) % MCV (80.0-100.0) fL Neutrophils # (1.3-7.7) k/uL Chloride (98-107) mmol/L BUN (9-20) mg/dL Creatinine (0.66-1.25) mg/dL Glucose (74-99) mg/dL POC Glucose (mg/dL) 108 H 101 H (75-99) mg/dL Calcium (8.4-10.2) mg/dL AST (17-59) U/L Total Protein (6.3-8.2) g/dL Albumin (3.5-5.0) g/dL CSF RBC 5175 H (0-10) u/L CSF Tot Nucleated Cells 18 H* (0-5) u/L CSF Total Protein 226 H (12-60) mg/dL 03/19/21 03/19/21 03/19/21 Range/Units 04:38 06:46 10:51 WBC 11.8 H (3.8-10.6) k/uL RBC 3.65 L (4.30-5.90) m/uL Hgb 12.3 L (13.0-17.5) gm/dL Hct 37.4 L (39.0-53.0) % MCV 102.5 H (80.0-100.0) fL Neutrophils # 9.4 H (1.3-7.7) k/uL Chloride 112 H (98-107) mmol/L BUN 6 L (9-20) mg/dL Creatinine 0.46 L (0.66-1.25) mg/dL Glucose 115 H (74-99) mg/dL POC Glucose (mg/dL) 114 H (75-99) mg/dL Calcium 7.4 L (8.4-10.2) mg/dL AST 64 H (17-59) U/L Total Protein 4.8 L (6.3-8.2) g/dL Albumin 2.1 L (3.5-5.0) g/dL CSF RBC (0-10) u/L CSF Tot Nucleated Cells (0-5) u/L CSF Total Protein (12-60) mg/dL Microbiology - Last 24 Hours (Table) 03/17/21 09:05 Blood Culture - Preliminary Blood No Growth after 48 hours 03/18/21 19:00 Anaerobic Culture - Preliminary Knee - Right 03/18/21 19:00 Wound Culture - Preliminary Knee - Right 03/18/21 11:35 CSF Gram Stain - Preliminary Cerebral Spinal Fluid CSF Culture - Preliminary H & H 03/14/21 03/15/21 03/17/21 Range/Units 16:34 08: 07:00 Hgb 12.3 L 12.2 L 12.2 L (13.0-17.5) gm/dL Hct 37.3 L 37.4 L 36.0 L (39.0-53.0) % 03/18/21 03/19/21 Range/Units 07:39 06:46 Hgb 12.1 L 12.3 L (13.0-17.5) gm/dL Hct 35.3 L 37.4 L (39.0-53.0) % Coagulation 03/14/21 03/18/21 Range/Units 16:34 07:39 INR 1.2 H 1.4 H (<1.2) Result Diagrams: 03/19/21 06:46 03/19/21 04:38 Assessment and Plan Assessment: 55-year-old male acute metabolic encephalopathy Left ankle pain, cellulitis rule out septic arthritis Right ankle pain Multiple superficial abrasions Status post fall from standing with likely blunt head trauma multiple medical comorbidities EtOH abuse Plan: -Appreciate cycle consultant and team management. -Primary medical management -Plan to aspirate left ankle for synovial cultures as well as fluid analysis to rule out septic arthritis. This appears to be more of a cellulitic reaction in the area however with the extremely painful passive range of motion would like to rule this out. -Patient may need investigation of his spine for possible abscess, MRI is pending -Obtain sed rate and CRP evaluation -ID for antibiotic management -Activity: Weightbearing as tolerated -Pain control: [Adequate at this time] -Meds: [reviewed] -GI ppx: senna, Miralax -DVT PPX: [OK to restart Heparin tonight] -Hygiene: Maintaining good hygiene -Log rolled every 2 hours -Encourage IS 10x/hr -Dispo: [Pending] I spoke with the daughter at length over the phone about patient's current condition as well as what is needed to be done. She gives us consent for aspiration of the joint under urgent circumstances. We discussed possible need for surgical intervention and also need for investigation of the spine as a possible source of infection she understood this. We will be in contact with her. Time with Patient: Greater than 30
[2021-03-19] MEDS ORDERED: ACETAMINOPHEN IV (For NPO) 1,000 MG in EMPTY BAG 1 BAG IVPB ONE (13:02)
--- NOTE | 2021-03-19 13:10 | P.PCN ---
Date of Procedure: 03/19/21 Preoperative Diagnosis: left ankle pain left ankle bursitis cellulitis Postoperative Diagnosis: same Surgeon: Vinay Montemayor Plug Drill Operator #1: Get Chowdhury Pathology: other (left ankle) Disposition: ICU Indications for Procedure: left ankle pain left ankle bursitis Operative Findings: 6 cc serous fluid Description of Procedure: The risk and benefits of the procedure were discussed with the patient today at bedside, he is in good understanding and would like to proceed. A consent form was obtained prior to the procedure, a timeout was done at bedside with the nursing staff. Appropriate paperwork was signed and dated. Patient was in supine position, the ankle was prepped with 1 iodine swab and one alcohol swab. A 20-gauge needle was inserted at distal portion of tibialis anterior just medial to extensor hallucis tendon. After anesthetization, I then aspirated about 6 mL of joint fluid from ankle. Patient tolerated procedure well, a bandage was placed after the aspiration. Fluid was then sent to the lab for anaerobic and aerobic cultures, cell count, Gram stain and crystal analysis
[2021-03-19 13:32] LABS: Appearance,BF Bloody; Nucleated Cells, Body Fluid 1500 /uL
[2021-03-19 13:34] LABS: RBC, Body Fluid 167500 /uL
[2021-03-19 13:36] LABS: Mononuclear WBC,Body Fluid 2 %; Polynuclear WBC,Body Fluid 98 %; Total Cells Counted,Body Fluid 100
[2021-03-19] MEDS ORDERED: VANCOMYCIN IV PER PHARMACY 1 EACH MISC MISCELLANE PRN (14:05)
--- NOTE | 2021-03-19 14:48 | P.PN ---
Progress Note - Text Progress Note Date: 03/19/21 Laboratory Tests 03/19/21 11:53 Fluid Source Synovial Fluid Appearance Bloody Fluid RBC [id number] Fluid Nucleated Cells 1500 Fluid Polynuclear WBCs 98 Fluid Mononuclear WBCs 2 Synovial Crystals Pending Synovial counts are reviewed as above. WBC are low. Crystals pending. Low suspicion for Septic arthritis based on this. Will wait on Gram stain and culture of Left ankle fluid. Favor a cellulitic reaction along with prolonged time down on that ankle. Daughter states he has had pain for along time in both ankles and swelling. Swelling likely related to edema, redness and pain now more related to either pressure sores or cellulitis. Again will wait on cultures for further recs.
--- NOTE | 2021-03-19 15:02 | MR ---
EXAMINATION TYPE: MR lumbar spine wo/w con DATE OF EXAM: 03/19/2021 COMPARISON: None HISTORY: Backpain, rule out discitis osteomyelitis. CONTRAST: Standard multiplanar, multisequence MRI departmental protocol utilizing 10 mL intravenous Gadavist ga dolinium contrast. Lumbar vertebra have normal alignment. There is decreased signal in the disks throughout the lumbar s pine. There is no compression fracture. There is no significant disc space narrowing. There is production manager ior disc bulging at levels from L1 to L4. Exam limited by motion. No increased signal seen in the dis caryn suggest discitis. There is some subcutaneous edema over the entire lumbar spine. There is no lumb ar paraspinal mass. There is mild lateral recess stenosis due to facet arthropathy at L4-5 and L3-4 a nd L2-3. Contrast images show no pathologic enhancement. The lumbar neural foramina are fairly well-maintained . IMPRESSION: No evidence of discitis. No significant disc space narrowing. No fracture. Multilevel mild facet arth ropathy and mild lateral recess stenosis. Multilevel mild posterior disc bulging without spinal steno sis.
--- NOTE | 2021-03-19 15:43 | PN ---
PROGRESS NOTE DATE OF SERVICE: 03/19/2021 REASON FOR FOLLOWUP: Fever, question of encephalitis versus left ankle infection. INTERVAL HISTORY: The patient did spike another fever this afternoon of 101.4 degrees Fahrenheit. The patient is hemodynamically stable, not on any pressor support. The patient is currently on 2 L nasal cannula. The patient remains lethargic; no agitation has been noticed. No vomiting, diarrhea or other changes reported by the nursing staff. PHYSICAL EXAMINATION: Blood pressure 137/82 with a pulse of 122 temperature 101.4. He is 98% on 2 L nasal cannula. GENERAL DESCRIPTION: General description is a middle-aged male lying in bed in no distress. RESPIRATORY SYSTEM: Unlabored breathing. Decreased breath sounds at the bases. No wheeze. HEART: S1, S2. Regular rate and rhythm. ABDOMEN: Soft. No tenderness. Left ankle did have swelling and tenderness to touch. LABS: Hemoglobin is 12.3, white count 11.8. 64, BUN of 16, creatinine 0.46. Synovial fluid is mostly bloody. DIAGNOSTIC IMPRESSION AND PLAN: Patient with a fever with initial concern for encephalitis/meningitis. However, glucose was normal. Patient's HSV DNA by PCR came back negative. That makes it less likely to be herpes encephalitis. fever could be related to his alcoholism; however, underlying bacterial infection not entirely excluded. Will recheck his inflammatory markers, start the patient on cefepime and zinc while waiting for the culture to finalize and monitor his clinical course closely. MMODL / IJN: [id number] /
[2021-03-19] MEDS: CEFEPIME 2 GM in SODIUM CHLORIDE 0.9% 100 ML IVPB SCH ×2 (17:16→23:14)
[2021-03-19 18:05] LABS: Glucose,Whole Blood 97 mg/dL (75-99)
[2021-03-19] MEDS: ACETAMINOPHEN SUPPOSITORY 650 MG SUPP RECTAL PRN (23:38)
[2021-03-20 00:08] LABS: Glucose,Whole Blood 124 mg/dL (75-99)
[2021-03-20] MEDS: VANCOMYCIN 1,500 MG in SODIUM CHLORIDE 0.9% 250 ML IVPB SCH ×4 (01:41→23:48)
[2021-03-20] MEDS: LORazepam 2 MG/ML INJ IV PRN (01:48)
[2021-03-20] MEDS: ACETAMINOPHEN SUPPOSITORY 650 MG SUPP RECTAL PRN (04:13)
[2021-03-20] MEDS: PANTOPRAZOLE 40 MG TABLET PO SCH (06:05)
[2021-03-20] MEDS: DEXTROSE 5%-0.45% NACL 1,000 ML IV SCH (06:06)
[2021-03-20] MEDS: THIAMINE 100 MG TAB PO SCH ×2 (06:06→16:38)
[2021-03-20 06:09] LABS: Glucose,Whole Blood 96 mg/dL (75-99)
[2021-03-20] MEDS ORDERED: VANCOMYCIN TROUGH DUE 1 EACH MISC MISCELLANE ONE (08:00)
[2021-03-20] MEDS: ACETAMINOPHEN TAB 325 MG TAB PO PRN ×4 (08:02→21:11)
[2021-03-20] MEDS: CEFEPIME 2 GM in SODIUM CHLORIDE 0.9% 100 ML IVPB SCH ×3 (08:11→23:47)
[2021-03-20 08:24] LABS: African American GFR (CKD) >90 (>60 ml/min/1.73 sqM); Non-African American GFR(CKD) >90 (>60 ml/min/1.73 sqM)
--- NOTE | 2021-03-20 08:50 | P.PN ---
Subjective Progress Note Date: 03/20/21 Principal diagnosis: Left ankle pain, cellulitis Patient was seen at bedside this morning has been transferred from ICU to the cardiac floor. Patient seems somewhat more responsive this morning compared to yesterday. Patient is lying semirecumbent bed. While ankle is examined patient does respond to pain. When ankles is moved patient does moan in pain. Patient denies chest pain, fever, shortness breath, nausea, vomiting, change in vision, loss of bowel/bladder control. Objective - Vital Signs Vital signs: Vital Signs Temp 98.1 F 03/20/21 08:38 Pulse 111 H 03/20/21 07:47 Resp 28 H 03/20/21 07:45 BP 133/85 03/20/21 07:45 Pulse Ox 92 L 03/20/21 07:45 Intake & Output 03/19/21 03/20/21 03/20/21 18:59 06:59 18:59 Intake Total 1600 300 Output Total 845 890 Balance 755 -590 Weight 65.5 kg Intake: IV 1600 300 ACETAMINOPHEN IV (For NPO 100 ) 1,000 mg In Empty Bag 1 bag @ 400 mls/hr IVPB ONCE ONE Rx#:[id number] Dextrose 5%-0.45% NaCl 1, 1200 300 000 ml @ 100 mls/hr IV . Q10H [facility] Rx#:[id number] Vancomycin 1,500 mg In 250 Sodium Chloride 0.9% 250 ml @ 125 mls/hr IVPB Q8H [facility] Rx#:[id number] cefTRIAXone 2 gm In 50 Sodium Chloride 0.9% 50 ml @ 100 mls/hr IVPB Q12HR [facility] Rx#:[id number] Output: Urine 845 890 Other: Voiding Method Indwelling Catheter Indwelling Catheter Indwelling Catheter # Bowel Movements 1 - Exam left ankle: Left ankle examined at bedside this morning. When left ankle is dorsiflexed patient moans in pain. The area of erythema seems to be less compared to yesterday around the ankle. There is still some swelling around the foot and ankle. DP pulses intact. Cap refill under 3 seconds. - Labs CBC & Chem 7: 03/19/21 06:46 03/20/21 07:34 Labs: Abnormal Lab Results - Last 24 Hours (Table) 03/17/21 03/19/21 03/19/21 Range/Units 07:00 04:38 06:48 ESR 64 H (0-15) mm/hr Creatinine (0.66-1.25) mg/dL POC Glucose (mg/dL) (75-99) mg/dL C-Reactive Protein 8.1 H (<1.0) mg/dL Methylmalonic Acid 0.46 H (<0.40) umol/L 03/19/21 03/20/21 03/20/21 Range/Units 10:51 00:06 07:34 ESR (0-15) mm/hr Creatinine 0.37 L (0.66-1.25) mg/dL POC Glucose (mg/dL) 114 H 124 H (75-99) mg/dL C-Reactive Protein (<1.0) mg/dL Methylmalonic Acid (<0.40) umol/L Microbiology - Last 24 Hours (Table) 03/19/21 11:55 Gram Stain - Preliminary Ankle - Left Wound Culture - Preliminary 03/18/21 19:00 Gram Stain - Preliminary Knee - Right Wound Culture - Preliminary 03/19/21 11:55 Anaerobic Culture - Preliminary Ankle - Left 03/18/21 11:35 CSF Gram Stain - Preliminary Cerebral Spinal Fluid CSF Culture - Preliminary 03/17/21 09:05 Blood Culture - Preliminary Blood No Growth after 48 hours 03/18/21 19:00 Anaerobic Culture - Preliminary Knee - Right Assessment and Plan Assessment: Left ankle pain, cellulitis rule out septic arthritis Plan: 1. Left ankle pain, cellulitis rule out septic arthritis -aspiration was performed yesterday the left ankle where 6 mL of serous joint fluid was aspir ated and sent to lab for culture, Gram stain, crystals, aerobic and anaerobic cultures. Results pending. We will continue to follow patient while in hospital 2. Appreciate medical management 3. Pain management - stable at this time 4. GI prophylaxis/DVT prophylaxis - Protonix; Mechanical - SCDs 5. PT/OT - weightbearing as tolerated with assistance 6. Appreciate consult Time with Patient: Less than 30
--- NOTE | 2021-03-20 09:02 | P.PN ---
Subjective Progress Note Date: 03/19/21 03/19/2021: This is a Tele-neurology follow-up performed on the patient today on 03/19/2021. Patient still very lethargic, encephalopathic, not waking up. He opens his eyes, but then drifts back to sleep. No seizure-like activity noted. Patient continues to have very tender left ankle. He also moans when his right leg is moved, particularly elevated. Restless, does not communicate much. Patient states just a few words, like "yes", "no", "all right". Patient not able to tell me his name. Patient appears no better as compared to yesterday. Objective - Vital Signs Vital signs: Vital Signs Temp 101.4 F H 03/19/21 12:00 Pulse 120 H 03/19/21 13:00 Resp 28 H 03/19/21 13:00 BP 139/92 03/19/21 13:00 Pulse Ox 96 03/19/21 13:00 Intake & Output 03/18/21 03/19/21 03/19/21 18:59 06:59 18:59 Intake Total 200 2000 1000 Output Total 655 625 485 Balance -455 1375 515 Weight 61.5 kg 102.9 kg Intake: IV 1900 1000 Acyclovir Sodium 1,000 mg 500 In Sodium Chloride 0.9% 250 ml @ 270 mls/hr IVPB Q8HR@0400,1200,2000 [facility] Rx#:[id number] Dextrose 5%-0.45% NaCl 1, 1100 700 000 ml @ 100 mls/hr IV . Q10H [facility] Rx#:[id number] Vancomycin 1,500 mg In 250 250 Sodium Chloride 0.9% 250 ml @ 125 mls/hr IVPB Q8H [facility] Rx#:[id number] cefTRIAXone 2 gm In 50 50 Sodium Chloride 0.9% 50 ml @ 100 mls/hr IVPB Q12HR [facility] Rx#:[id number] Intake, IV Titration 200 100 Amount Dextrose 5%-0.45% NaCl 1, 200 100 000 ml @ 100 mls/hr IV . Q10H [facility] Rx#:[id number] Output: Urine 655 625 485 Other: Voiding Method External Catheter Indwelling Catheter # Voids 1 # Bowel Movements 1 1 1 - Exam Patient continues to be significantly encephalopathic. Patient somewhat restless, does not answer to any question. Not able to tell me his name or name any object. Patient makes minimal eye contact. Pupils are round and reacting. Visual licea could not be tested. Face is symmetric. Patient moves all 4 extremities equally. His left ankle continues to be very painful and tender to touch. Patient's right leg extension passively also produces severe pain. His neck appears slightly stiff for forward flexion, but appears supple for side rotation. Tone is equal bilaterally. - Labs CBC & Chem 7: 03/19/21 06:46 03/20/21 07:34 Labs: Abnormal Lab Results - Last 24 Hours (Table) 03/18/21 03/18/21 03/19/21 Range/Units 11:35 21:27 03:07 WBC (3.8-10.6) k/uL RBC (4.30-5.90) m/uL Hgb (13.0-17.5) gm/dL Hct (39.0-53.0) % MCV (80.0-100.0) fL Neutrophils # (1.3-7.7) k/uL Chloride (98-107) mmol/L BUN (9-20) mg/dL Creatinine (0.66-1.25) mg/dL Glucose (74-99) mg/dL POC Glucose (mg/dL) 108 H 101 H (75-99) mg/dL Calcium (8.4-10.2) mg/dL AST (17-59) U/L C-Reactive Protein (<1.0) mg/dL Total Protein (6.3-8.2) g/dL Albumin (3.5-5.0) g/dL CSF RBC 5175 H (0-10) u/L CSF Tot Nucleated Cells 18 H* (0-5) u/L CSF Total Protein 226 H (12-60) mg/dL 03/19/21 03/19/21 03/19/21 Range/Units 04:38 04:38 06:46 WBC 11.8 H (3.8-10.6) k/uL RBC 3.65 L (4.30-5.90) m/uL Hgb 12.3 L (13.0-17.5) gm/dL Hct 37.4 L (39.0-53.0) % MCV 102.5 H (80.0-100.0) fL Neutrophils # 9.4 H (1.3-7.7) k/uL Chloride 112 H (98-107) mmol/L BUN 6 L (9-20) mg/dL Creatinine 0.46 L (0.66-1.25) mg/dL Glucose 115 H (74-99) mg/dL POC Glucose (mg/dL) (75-99) mg/dL Calcium 7.4 L (8.4-10.2) mg/dL AST 64 H (17-59) U/L C-Reactive Protein 8.1 H (<1.0) mg/dL Total Protein 4.8 L (6.3-8.2) g/dL Albumin 2.1 L (3.5-5.0) g/dL CSF RBC (0-10) u/L CSF Tot Nucleated Cells (0-5) u/L CSF Total Protein (12-60) mg/dL 03/19/21 Range/Units 10:51 WBC (3.8-10.6) k/uL RBC (4.30-5.90) m/uL Hgb (13.0-17.5) gm/dL Hct (39.0-53.0) % MCV (80.0-100.0) fL Neutrophils # (1.3-7.7) k/uL Chloride (98-107) mmol/L BUN (9-20) mg/dL Creatinine (0.66-1.25) mg/dL Glucose (74-99) mg/dL POC Glucose (mg/dL) 114 H (75-99) mg/dL Calcium (8.4-10.2) mg/dL AST (17-59) U/L C-Reactive Protein (<1.0) mg/dL Total Protein (6.3-8.2) g/dL Albumin (3.5-5.0) g/dL CSF RBC (0-10) u/L CSF Tot Nucleated Cells (0-5) u/L CSF Total Protein (12-60) mg/dL Microbiology - Last 24 Hours (Table) 03/18/21 11:35 CSF Gram Stain - Preliminary Cerebral Spinal Fluid CSF Culture - Preliminary 03/17/21 09:05 Blood Culture - Preliminary Blood No Growth after 48 hours 03/18/21 19:00 Anaerobic Culture - Preliminary Knee - Right 03/18/21 19:00 Wound Culture - Preliminary Knee - Right Assessment and Plan Assessment: * 55-year-old male with history of alcoholism, was found at laying with fecal matter with multiple bruises, scratches and pressure sores over dependent areas, indicating patient has been on the floor for fairly long period of time. Last period of contact with his friends was on Sunday, 3 days prior to arrival. Patient has not improved clinically since arrival, continues to be significantly delirious/encephalopathic. 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 Patient now has developed temperature 101.4. Rule out meningitis encephalitis. * Hypertension * History of alcoholism * History of marijuana use. Plan: * Patient continues to be very encephalopathic. Patient's spinal fluid was traumatic because patient was not cooperating. CSF shows very mild leukocytosis (after correction for traumatic tap), and very elevated proteins. Cultures so far negative. HSV-1 and 2 PCR in the CSF are negative. Infectious disease following. * EEG was abnormal due to background slowing of moderate to severe degree. This is suggestive of generalized cerebral dysfunction, as can be seen with toxic metabolic encephalopathy or due to diffuse structural brain abnormality. No epileptiform activity was seen. * Carotid Doppler was technically difficult due to patient's inability to hold still. No hemodynamically significant ICA stenosis identified on either side. Antegrade flow in both vertebral arteries. * B12 582 normal, however at MMA is elevated 0.46 (normal <0.40). This may indicate intracellular deficiency of B12. Patient's folate 5.7, TSH 1.77, RPR nonreactive. We will start folate and B12 replacement. B6 still pending. * Thiamine, folate. [facility] protocol. * Orthopedic consultation for severe left ankle pain, rule out infection. * MRI of the lumbar spine with and without contrast revealed no evidence of d iscitis. No significant disc space narrowing. No fracture. Multilevel mild facet arthropathy and mild lateral recess stenosis. Multilevel mild posterior disc bulging without spinal stenosis. * Spinal fluid examination revealed glucose 64 (40-70), proteins 226 (12-60), total WBC count in CSF 18, out of its 15% monocytes and 85% polynuclear's. CSF RBC 5175, due to traumatic tap. * MRI of the brain revealed mild atrophy. Mild subependymal white matter increased signal around the lateral ventricles measuring up to 5 mm in thickness. No evidence of cortical infarct.
--- NOTE | 2021-03-20 09:44 | P.PN ---
Subjective Progress Note Date: 03/20/21 This a 55-year-old white male patient who was admitted to the hospital on 2020 when he was found delirious and confused by his neighbor and his home. Patient was found laying on the floor, in his own feces, he had a bunch alcohol bottles lying around him. he had multiple bruises and abrasions in different stages of healing. He has a hematoma to his left eye , and abrasions on his knees and lower extremities. Tendon has a history of mathews abuse, eats marijuana edibles. Drug screen was positive for marijuana, benzodiazepines. His alcohol level was less than 10. Brain CT showed no acute intracranial abnormality, no fracture, cervical spine, additional spondylotic changes in the cervical spine. CT of the facial bones showed evidence of old fracture of the floor of the left bony orbit, no acute fractures. Initial chest x-ray showed minimal subsegmental atelectasis in the right lung base without change. EKG showed sinus rhythm. Initial blood work showed a white count of 7.8, hemoglobin 12.3, INR of 1.2, sodium was 153, potassium 3.4, chloride is 115, CO2 is 24, B1 and creatinine 0.74, troponin was 0.016. Patient was started on benzodiazepines in the form of Ativan per [facility] protocol. Neurology consultation was obtained. Psychiatric services are following. Patient is on thiamine and folate per [facility] protocol. ABG showed moderate to severe degree of slowing, consistent with toxic metabolic encephalopathy, no epileptiform discharges were seen. This morning patient started spiking fevers with a temp of 101.4F, he is also requiring supplemental oxygen currently at 2 L with a pulse ox of 93-97%, he is receiving Valium and when necessary Ativan. Quite lethargic, confused, he opens eyes to voice, however he is not able to provide any meaningful verbal responses. Today's chest x-ray has been reviewed showing right basilar patchy infiltrate and/or atelectasis. Patient was placed on empiric antibiotics in the form of Rocephin and vancomycin. In view of altered mentation and fever lumbar puncture was requested however anesthesia was unable to perform it because Lovenox was given this morning. We were consulted in view of depressed level of consciousness related to benzodiazepines and possibility of needing to intubate the patient placement on mechanical ventilator. Blood gas has been obtained showing pO2 of 85, pCO2 of 33, pH of 7.51 this was done on FiO2 of 28%, patient is breathing fairly comfortably, does not appear to be in any acute distress, head of the bed is up 35, he is currently on 2 L of oxygen, his pulse ox is 97%. No coughing or wheezing. He continues on empiric antibiotics. On today's evaluation of a 2020, the patient is essentially the same. No major improvement in his underlying mental status. The patient remains encephalopathic. He is unable to say. This is 50 gases some few words such as yes or no. Unable to follow any commands. His been having also episodes of fever. Based on all this, the patient underwent a lumbar puncture suspecting encephalitis. No neck stiffness. The lumbar puncture was completed and the patient was found to have elevated CSF protein. The total white cell count was 18. The patient had 85% polys tear cells and 50% mononuclear cells. The CSF protein was 226. Glucose is a 69. Patient was also covered with broad-spectrum antibiotics including a combination of Rocephin and vancomycin. The patient is also on acyclovir IV 1 g 3 times a day. The white cell count is 11.5 with hemoglobin of 12.1. INR is at 1.4. BUN is at 4 with a creatinine of 0.5. Rest of the electrodes are within normal limits. No seizure activity has been noted. EEG was done and was quite abnormal due to background slowing and moderate to severe slowing of the EEG activity suggestive of generalized cerebral dysfunction. Neurology is on the case for now. In terms of alcohol withdrawal, delirium tremors, the patient is currently on Ativan based on the CIWA protocol. The patient is also on D5 half-normal saline today to 100 mL an hour. The patient will be transferred to the intensive care unit for further monitoring. 03/19/2021, the patient is still encephalopathic. Slightly more rested and more awake compared to yesterday. Nevertheless he remains encephalopathic. No neck stiffness. No headaches. MRI of the brain was done and showed no acute abno rmalities. As stated earlier, his CSF evaluation was not consistent with bacterial meningitis. HSV by PCR still pending. He remains on vancomycin. He remains on Rocephin. He remains on acyclovir. He is receiving Ativan per CIWA protocol. He is on D5 half-normal saline at the rate of 100 mL an hour. Hemodynamically stable. Pulse ox is 98% on 2 L of oxygen by nasal cannula. Chest x-ray shows no evidence of any pneumonia. Note that his urine drug screen was positive for benzodiazepines and marijuana. His blood work from today shows a WD second of 11.8 with hemoglobin of 12.3. Platelets is at 193. Electrolytes are normal. Renal functions are normal. Hepatic function is normal. Albumin is at 2.1 with a protein of 4.8. On today's evaluation of a 03/20/2021, the patient is breathing comfortably. The patient got transferred out of the intensive care unit. Currently is on room air oxygen. He remains somewhat encephalopathic. No agitation. No other significant respiratory distress. No significant tachycardia. Lumbar puncture came back negative for any bacterial growth. Lumbar puncture was also negative for HSV by PCR. Acyclovir was discontinued. There was a concern that the patient may have a septic joint. He was seen by orthopedic surgery. He is left ankle was drained. A total of 60 mL of fluid was removed from the ankle and was sent to lab. Patient was kept on antibiotics and patient is currently on a combination of cefepime and vancomycin. Cultures are all negative the white cell count. The white cell count is at 11.8. INR is at 1.4 with a PT of 13.8. His creatinine today is 0.7. MRI of the lumbar spine was done and showed no evidence of any discitis. No significant disc space narrowing. There is evidence of no fracture. There is evidence of multiple. Mild joint facet arthropathy. Objective - Vital Signs Vital signs: Vital Signs Temp 98.1 F 03/20/21 08:38 Pulse 111 H 03/20/21 07:47 Resp 28 H 03/20/21 07:45 BP 133/85 03/20/21 07:45 Pulse Ox 92 L 03/20/21 07:45 Intake & Output 03/19/21 03/20/21 03/20/21 18:59 06:59 18:59 Intake Total 1600 300 Output Total 845 890 Balance 755 -590 Weight 65.5 kg Intake: IV 1600 300 ACETAMINOPHEN IV (For NPO 100 ) 1,000 mg In Empty Bag 1 bag @ 400 mls/hr IVPB ONCE ONE Rx#:[id number] Dextrose 5%-0.45% NaCl 1, 1200 300 000 ml @ 100 mls/hr IV . Q10H [facility] Rx#:[id number] Vancomycin 1,500 mg In 250 Sodium Chloride 0.9% 250 ml @ 125 mls/hr IVPB Q8H [facility] Rx#:[id number] cefTRIAXone 2 gm In 50 Sodium Chloride 0.9% 50 ml @ 100 mls/hr IVPB Q12HR [facility] Rx#:[id number] Output: Urine 845 890 Other: Voiding Method Indwelling Catheter Indwelling Catheter Indwelling Catheter # Bowel Movements 1 - Exam GENERAL EXAM: Lethargic, confused, 55-year-old white male, 2 L of oxygen and the pulse ox 97%, patient has bruises and abrasions on his face and left eye, knees and feet comfortable in no apparent distress. HEAD: Normocephalic/atraumatic. EYES: Normal reaction of pupils, equal size. Conjunctiva pink, sclera white. NOSE: Clear with pink turbinates. THROAT: No erythema or exudates. NECK: No masses, no JVD, no thyroid enlargement, no adenopathy. CHEST: No chest wall deformity. Symmetrical expansion. LUNGS: Equal air entry with dim breath sounds, no crackles CVS: Regular rate and rhythm, normal S1 and S2, no gallops, no murmurs, no rubs ABDOMEN: Soft, nontender. No hepatosplenomegaly, normal bowel sounds, no guarding or rigidity. EXTREMITIES: No clubbing, no edema, no cyanosis, 2+ pulses and upper and lower extremities. MUSCULOSKELETAL: Muscle strength and tone normal. SPINE: No scoliosis or deformity SKIN: No rashes CENTRAL NERVOUS SYSTEM: Confused No focal deficits, tone is normal in all 4 extremities. - Labs CBC & Chem 7: 03/19/21 06:46 03/20/21 07:34 Labs: Abnormal Lab Results - Last 24 Hours (Table) 03/17/21 03/19/21 03/19/21 Range/Units 07:00 04:38 06:48 ESR 64 H (0-15) mm/hr Creatinine (0.66-1.25) mg/dL POC Glucose (mg/dL) (75-99) mg/dL C-Reactive Protein 8.1 H (<1.0) mg/dL Methylmalonic Acid 0.46 H (<0.40) umol/L 0803/20/21 03/20/21 Range/Units 10:51 00:06 07:34 ESR (0-15) mm/hr Creatinine 0.37 L (0.66-1.25) mg/dL POC Glucose (mg/dL) 114 H 124 H (75-99) mg/dL C-Reactive Protein (<1.0) mg/dL Methylmalonic Acid (<0.40) umol/L Microbiology - Last 24 Hours (Table) 03/19/21 11:55 Gram Stain - Preliminary Ankle - Left Wound Culture - Preliminary 03/18/21 19:00 Gram Stain - Preliminary Knee - Right Wound Culture - Preliminary 03/19/21 11:55 Anaerobic Culture - Preliminary Ankle - Left 03/18/21 11:35 CSF Gram Stain - Preliminary Cerebral Spinal Fluid CSF Culture - Preliminary 03/17/21 09:05 Blood Culture - Preliminary Blood No Growth after 48 hours 03/18/21 19:00 Anaerobic Culture - Preliminary Knee - Right Assessment and Plan Plan: 1 altered mental status, encephalopathy. Consider delirium tremors. Encephalitis/meningitis was considered. The patient underwent lumbar puncture. The results were noted. HSV by PCR is been negative. Cultures been negative. MRI of the brain was negative. Neurologist on the case. No seizure activity. It is possible this is all related to chronic alcoholism/alcohol withdrawal and the patient is currently slightly more awake and alert compared to yesterday. 2 fever, episodic 3 acute hypoxic respiratory failure with some limited atelectasis in lung bases, currently on room air oxygen 4 Alcoholism 5 Very Poor Baseline Performance and Functional Status with Multiple Falls at Home Related to Alcoholism 6 multiple skin abrasions involving the lower extremity and ecchymosis around the left orbit/. Noticeably fracture based on the CAT scan findings. 7 Hypertension 8 hypernatremia, improved 9 left ankle swelling /cellulitis/questionable septic joint post drainage. Awaiting cultures. Awaiting crystals evaluation. Plan Awaiting fluid cultures from the [facility] of the left ankle Disontinue the IV acyclovir Chest x-ray shows no evidence of an aspiration pneumonia and he remains onRA 02 Continue IV fluids Ativan per CIWA protocol. MRI of the brain was negative CT of the L spine negative Aspiration precautions Keep antibiotics not ready for any feeding yet Long-term prognosis poor baseline above-mentioned comorbidities. We'll continue to follow.
--- NOTE | 2021-03-20 10:44 | P.PN ---
Subjective Progress Note Date: 03/20/21 Patient was transferred out of ICU and was seen by me today on stepdown unit. Patient mentation is slightly better in terms of alertness but he still confused and not answering questions appropriately. He still having fevers intermittently. Objective - Vital Signs Vital signs: Vital Signs Temp 98.1 F 03/20/21 08:38 Pulse 111 H 03/20/21 07:47 Resp 28 H 03/20/21 07:45 BP 133/85 03/20/21 07:45 Pulse Ox 92 L 03/20/21 07:45 Intake & Output 03/19/21 03/20/21 03/20/21 18:59 06:59 18:59 Intake Total 1600 300 0 Output Total 845 890 Balance 755 -590 0 Weight 65.5 kg Intake: IV 1600 300 ACETAMINOPHEN IV (For NPO 100 ) 1,000 mg In Empty Bag 1 bag @ 400 mls/hr IVPB ONCE ONE Rx#:[id number] Dextrose 5%-0.45% NaCl 1, 1200 300 000 ml @ 100 mls/hr IV . Q10H [facility] Rx#:[id number] Vancomycin 1,500 mg In 250 Sodium Chloride 0.9% 250 ml @ 125 mls/hr IVPB Q8H [facility] Rx#:[id number] cefTRIAXone 2 gm In 50 Sodium Chloride 0.9% 50 ml @ 100 mls/hr IVPB Q12HR [facility] Rx#:[id number] Oral 0 Output: Urine 845 890 Other: Voiding Method Indwelling Catheter Indwelling Catheter Indwelling Catheter # Bowel Movements 1 2 - Exam General: The patient is very confused Eye: there is normal conjunctiva bilaterally. Neck: The neck is supple, there is no JVD. Cardiovascular: Normal S1-S2, no S3-S4, no murmurs. Respiratory: Lungs clear to auscultation bilaterally Gastrointestinal: Abdomen is soft, nontender Musculoskeletal: There is +1 pedal edema. Skin: Skin is warm and dry - Labs CBC & Chem 7: 03/19/21 06:46 03/20/21 07:34 Labs: Abnormal Lab Results - Last 24 Hours (Table) 03/17/21 03/19/21 03/19/21 Range/Units 07:00 04:38 06:48 ESR 64 H (0-15) mm/hr Creatinine (0.66-1.25) mg/dL POC Glucose (mg/dL) (75-99) mg/dL C-Reactive Protein 8.1 H (<1.0) mg/dL Methylmalonic Acid 0.46 H (<0.40) umol/L 03/19/21 03/20/21 03/20/21 Range/Units 10:51 00:06 07:34 ESR (0-15) mm/hr Creatinine 0.37 L (0.66-1.25) mg/dL POC Glucose (mg/dL) 114 H 124 H (75-99) mg/dL C-Reactive Protein (<1.0) mg/dL Methylmalonic Acid (<0.40) umol/L Microbiology - Last 24 Hours (Table) 03/18/21 11:35 CSF Gram Stain - Preliminary Cerebral Spinal Fluid CSF Culture - Preliminary 03/19/21 11:55 Gram Stain - Preliminary Ankle - Left Wound Culture - Preliminary 03/18/21 19:00 Gram Stain - Preliminary Knee - Right Wound Culture - Preliminary 03/19/21 11:55 Anaerobic Culture - Preliminary Ankle - Left 03/17/21 09:05 Blood Culture - Preliminary Blood No Growth after 48 hours 03/18/21 19:00 Anaerobic Culture - Preliminary Knee - Right Assessment and Plan Assessment: This is a 55-year-old male was brought into the emergency room after he was found by one of the neighbors covered in feces but responsive with empty bottles of alcohol around him be transferred to the hospital upon arrival he was cleaned up and was found to be hallucinating suggestive of being in DTs for which she was started on benzodiazepines per CIWA scale. Since admission, patient remained significantly encephalopathic with not much progress in his mentation. CT of the head no acute pathology CT of the face showed old left orbital fracture inferiorly X-ray of the right elbow showed olecranon process spur with some soft tissue swelling EKG showed sinus rhythm Alcohol level was <10 Patient was transferred to the ICU for close monitoring on 03/18 Assessment: Alcohol abuse with alcohol withdrawal syndrome Delirium tremens Rhabdomyolysis Encephalopathy with hallucinations Plan Benzodiazepines per CIWA scale IV fluid hydration, Thiamine Seizure precautions, Fall precautions Computed tomography scan of the head showed no acute findings. MRI of the brain was no acute finding Consulted neurology and psychiatry for further evaluation EEG was abnormal with generalized cerebral dysfunction and evidence of toxic metabolic encephalopathy Acute toxo metabolic encephalopathy Sepsis without septic shock Concerns about meningitis, possibly viral Started on broad spectrum antibiotic with vancomycin, ceftriaxone, and acyclovir for suspected meningitis on presentation.. Antibiotic is been adjusted by infectious disease currently on IV cefepime and vancomycin. CSF fluid not consistent with bacterial meningitis. HSV PCR negative MRI of the lumbar spine with no evidence of discitis or prevertebral abscess Blood gas showed no evidence of acute CO2 narcosis Chest x-ray with questionable pneumonia Poor living condition Recurrent episodes of hospital admission for alcohol abuse Severo. 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
[2021-03-20] MEDS: lisinopriL 10 MG TAB PO SCH (10:47)
[2021-03-20] MEDS: FOLIC ACID 1 MG TAB PO SCH (10:47)
[2021-03-20 11:55] LABS: Glucose,Whole Blood 86 mg/dL (75-99)
[2021-03-20] MEDS: amLODIPine 5 MG TAB PO SCH ×2 (12:11→21:11)
[2021-03-20] MEDS: CYANOCOBALAMIN 1,000 MCG/ML 1 ML VIAL IM SCH (14:23)
--- NOTE | 2021-03-20 14:35 | P.PN ---
Subjective Progress Note Date: 03/20/21 03/20/2021: This is a Tele-neurology follow-up performed on the patient today on 03/20/2021. Patient still very lethargic, encephalopathic, waking up more, but not answering questions. Per nursing report, he answered appropriately yes and when she asked if he wants applesauce, he replied "no". He continues to have pain in the left ankle, and both legs with any movement. Per nurse, whenever she moves his legs, hips down, he moans. Patient does have 3+ pedal edema. Patient is on CIWA protocol. He has received 2 mg Ativan yesterday. Nothing today. No seizure- like activity noted. Objective - Vital Signs Vital signs: Vital Signs Temp 100.8 F H 03/20/21 11:17 Pulse 104 H 03/20/21 11:17 Resp 24 03/20/21 11:17 BP 128/85 03/20/21 11:17 Pulse Ox 97 03/20/21 11:17 Intake & Output 03/19/21 03/20/21 03/20/21 18:59 06:59 18:59 Intake Total 1600 300 0 Output Total 845 890 650 Balance 755 -590 -650 Weight 65.5 kg Intake: IV 1600 300 ACETAMINOPHEN IV (For NPO 100 ) 1,000 mg In Empty Bag 1 bag @ 400 mls/hr IVPB ONCE ONE Rx#:[id number] Dextrose 5%-0.45% NaCl 1, 1200 300 000 ml @ 100 mls/hr IV . Q10H [facility] Rx#:[id number] Vancomycin 1,500 mg In 250 Sodium Chloride 0.9% 250 ml @ 125 mls/hr IVPB Q8H [facility] Rx#:[id number] cefTRIAXone 2 gm In 50 Sodium Chloride 0.9% 50 ml @ 100 mls/hr IVPB Q12HR [facility] Rx#:[id number] Oral 0 Output: Urine 845 890 650 Other: Voiding Method Indwelling Catheter Indwelling Catheter Indwelling Catheter # Bowel Movements 1 2 - Exam Patient continues to be significantly encephalopathic. Patient somewhat restless, does not answer to any question. Not able to tell me his name or name any object. Patient makes minimal eye contact. Pupils are round and reacting. Visual licea could not be tested. Face is symmetric. Patient moves all 4 extremities equally. Patient's movements in the legs elicits pain. Tone is equal bilaterally. - Labs CBC & Chem 7: 03/19/21 06:46 03/20/21 07:34 Labs: Abnormal Lab Results - Last 24 Hours (Table) 03/20/21 03/20/21 Range/Units 00:06 07:34 Creatinine 0.37 L (0.66-1.25) mg/dL POC Glucose (mg/dL) 124 H (75-99) mg/dL Microbiology - Last 24 Hours (Table) 03/17/21 09:05 Blood Culture - Preliminary Blood No Growth after 72 hours 03/18/21 11:35 CSF Gram Stain - Preliminary Cerebral Spinal Fluid CSF Culture - Preliminary 03/19/21 11:55 Gram Stain - Preliminary Ankle - Left Wound Culture - Preliminary 03/18/21 19:00 Gram Stain - Preliminary Knee - Right Wound Culture - Preliminary 03/19/21 11:55 Anaerobic Culture - Preliminary Ankle - Left 03/18/21 19:00 Anaerobic Culture - Preliminary Knee - Right Assessment and Plan Assessment: * 55-year-old male with history of alcoholism, was found at laying with fecal ma tter with multiple bruises, scratches and pressure sores over dependent areas, indicating patient has been on the floor for fairly long period of time. Last period of contact with his friends was on Sunday, 3 days prior to arrival. Patient has improved slightly as compared to yesterday. Still continues to be significantly delirious/encephalopathic. 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 Patient now has developed temperature 101.4. No definitive evidence of meningitis/encephalitis based upon CSF results. * Hypertension * History of alcoholism * History of marijuana use. Plan: * Patient continues to be very encephalopathic. Patient's spinal fluid was traumatic because patient was not cooperating. CSF shows very mild leukocytosis (after correction for traumatic tap), and very elevated proteins. Cultures so far negative. HSV-1 and 2 PCR in the CSF are negative. Infectious disease following. Acyclovir has been discontinued. Antibiotics have been tapered to control cryptogenic infection. Currently on cefepime. Patient had undergone aspiration of right knee and left ankle, both of which have been negative for any growth. No crystals seen in the sinonasal fluid. * EEG was abnormal due to background slowing of moderate to severe degree. This is suggestive of generalized cerebral dysfunction, as can be seen with toxic metabolic encephalopathy or due to diffuse structural brain abnormality. No epileptiform activity was seen. * Carotid Doppler was technically difficult due to patient's inability to hold still. No hemodynamically significant ICA stenosis identified on either side. Antegrade flow in both vertebral arteries. * B12 582 normal, however at MMA is elevated 0.46 (normal <0.40). This may indicate intracellular deficiency of B12. Patient's folate 5.7, TSH 1.77, RPR nonreactive. We will start folate and B12 replacement. B6 still pending. * Thiamine, folate. CIWA protocol. * Orthopedic consultation input appreciated. Patient had undergone left ankle and right knee joint aspiration. 40 as he is 10. His * MRI of the lumbar spine with and without contrast revealed no evidence of discitis. No significant disc space narrowing. No fracture. Multilevel mild facet arthropathy and mild lateral recess stenosis. Multilevel mild posterior disc bulging without spinal stenosis. * Spinal fluid examination revealed glucose 64 (40-70), proteins 226 (12-60), total WBC count in CSF 18, out of its 15% monocytes and 85% polynuclear's. CSF RBC 5175, due to traumatic tap. * MRI of the brain revealed mild atrophy. Mild subependymal white matter increased signal around the lateral ventricles measuring up to 5 mm in thickness. No evidence of cortical infarct. * Dr. Osman Malone Will resume neurology service from the morning.
[2021-03-20 16:23] LABS: Glucose,Whole Blood 90 mg/dL (75-99)
--- NOTE | 2021-03-20 18:36 | PN ---
PROGRESS NOTE DATE OF SERVICE: 03/20/2021 REASON FOR FOLLOWUP: Fever and bacteremia. INTERVAL HISTORY: The patient is still running a fever of 100 to 100.7; however, the patient is hemodynamically stable. The patient is getting more awake and alert; however, did not provide any history. Currently on room air. No vomiting or diarrhea reported by the nursing staff. PHYSICAL EXAMINATION: Blood pressure 134/80 with a pulse of 102, temperature 100.3. He is 94% on room air. GENERAL DESCRIPTION: General description is a middle-aged male lying in bed in no distress. RESPIRATORY SYSTEM: Unlabored breathing. Decreased breath sounds at the bases. No wheeze. HEART: S1, S2. Regular rate and rhythm. ABDOMEN: Soft. No tenderness. Left ankle area did have some swelling and tenderness to touch but no redness. LABS: Creatinine 0.37. Vancomycin trough was 20.1. Blood culture with Gram-positive cocci in clusters. DIAGNOSTIC IMPRESSION AND PLAN: Patient with a fever, now with evidence of Gram-positive bacteremia concerning for possible left ankle cellulitis. MRI of the lumbosacral spine did not show any evidence of diskitis. The patient is covered with vancomycin. Blood cultures will be repeated to document clearance of his bacteremia. Monitor his clinical course closely. Recheck his inflammatory markers tomorrow. MMODL / IJN: [id number] /
[2021-03-20 19:57] LABS: Glucose,Whole Blood 86 mg/dL (75-99)
[2021-03-21 00:07] LABS: Glucose,Whole Blood 85 mg/dL (75-99)
[2021-03-21] MEDS: ACETAMINOPHEN SUPPOSITORY 650 MG SUPP RECTAL PRN (02:50)
[2021-03-21 06:12] LABS: Glucose,Whole Blood 89 mg/dL (75-99)
[2021-03-21 06:44] LABS: Basophils % (A) 1 %; Eosinophils # (A) 0.1 k/uL (0-0.7); Eosinophils % (A) 1 %; HCT 34.4 % (39.0-53.0); HGB 11.5 gm/dL (13.0-17.5); Lymphocytes # (A) 0.9 k/uL (1.0-4.8); Lymphocytes % (A) 11 %; MCH 33.4 pg (25.0-35.0); MCHC 33.4 g/dL (31.0-37.0); Macrocytosis Slight; Monocytes # (A) 0.6 k/uL (0-1.0); Monocytes % (A) 7 %; Neutrophils # (A) 6.7 k/uL (1.3-7.7); Neutrophils % (A) 78 %; Platelet Count 223 k/uL (150-450); RBC 3.45 m/uL (4.30-5.90); WBC 8.6 k/uL (3.8-10.6)
[2021-03-21 09:37] LABS: Erythrocyte Sedimentation Rate 77 mm/hr (0-15)
[2021-03-21] MEDS: VANCOMYCIN 1,500 MG in SODIUM CHLORIDE 0.9% 250 ML IVPB SCH ×3 (10:38→23:49)
[2021-03-21] MEDS: CEFEPIME 2 GM in SODIUM CHLORIDE 0.9% 100 ML IVPB SCH ×3 (10:39→23:49)
[2021-03-21] MEDS: ACETAMINOPHEN TAB 325 MG TAB PO PRN ×3 (10:39→23:49)
[2021-03-21] MEDS: amLODIPine 5 MG TAB PO SCH ×2 (10:40→20:30)
[2021-03-21] MEDS: FOLIC ACID 1 MG TAB PO SCH (10:40)
[2021-03-21] MEDS: PANTOPRAZOLE 40 MG TABLET PO SCH (10:41)
[2021-03-21] MEDS: CYANOCOBALAMIN 1,000 MCG/ML 1 ML VIAL IM SCH (10:41)
[2021-03-21] MEDS: THIAMINE 100 MG TAB PO SCH ×2 (10:41→16:18)
[2021-03-21] MEDS: lisinopriL 10 MG TAB PO SCH (10:41)
--- NOTE | 2021-03-21 11:23 | P.PN ---
Subjective Progress Note Date: 03/21/21 Patient mentation improved significantly today. He is more alert. He is oriented to himself and to the place. He still having low-grade fever. Objective - Vital Signs Vital signs: Vital Signs Temp 97.5 F L 03/21/21 06:43 Pulse 86 03/21/21 04:00 Resp 20 03/21/21 04:00 BP 110/68 03/21/21 04:00 Pulse Ox 95 03/21/21 07:45 Intake & Output 03/20/21 03/21/21 03/21/21 18:59 06:59 18:59 Intake Total 0 120 Output Total 825 800 500 Balance -825 -800 -380 Weight 89 kg Intake: Oral 0 120 Output: Urine 825 800 500 Uretheral (Rendon) 175 Other: Voiding Method Indwelling Catheter Indwelling Catheter Indwelling Catheter # Bowel Movements 2 - Exam General: The patient is is more alert today Eye: there is normal conjunctiva bilaterally. Neck: The neck is supple, there is no JVD. Cardiovascular: Normal S1-S2, no S3-S4, no murmurs. Respiratory: Lungs clear to auscultation bilaterally Gastrointestinal: Abdomen is soft, nontender Musculoskeletal: There is +1 pedal edema. Skin: Skin is warm and dry - Labs CBC & Chem 7: 03/21/21 06:17 03/20/21 07:34 Labs: Abnormal Lab Results - Last 24 Hours (Table) 03/17/21 03/21/21 03/21/21 Range/Units 07:00 06:17 06:17 RBC 3.45 L (4.30-5.90) m/uL Hgb 11.5 L (13.0-17.5) gm/dL Hct 34.4 L (39.0-53.0) % Lymphocytes # 0.9 L (1.0-4.8) k/uL ESR 77 H (0-15) mm/hr C-Reactive Protein 8.1 H (<1.0) mg/dL Vitamin B6 3 L (5-50) ug/L Microbiology - Last 24 Hours (Table) 03/18/21 11:35 CSF Gram Stain - Preliminary Cerebral Spinal Fluid CSF Culture - Preliminary 03/19/21 14:59 Blood Culture Gram Stain - Preliminary Blood Blood Culture - Preliminary Staphylococcus epidermidis 03/19/21 11:55 Gram Stain - Preliminary Ankle - Left Wound Culture - Preliminary 03/19/21 14:59 Blood Culture - Final Blood 03/17/21 09:05 Blood Culture - Preliminary Blood No Growth after 72 hours Assessment and Plan Assessment: This is a 55-year-old male was brought into the emergency room after he was found by one of the neighbors covered in feces but responsive with empty bottles of alcohol around him be transferred to the hospital upon arrival he was cleaned up and was found to be hallucinating suggestive of being in DTs for which she was started on benzodiazepines per CIWA scale. Since admission, patient remained significantly encephalopathic with not much progress in his mentation. On 03/21, patient appeared more alert and he is now oriented to himself and to the place. He is able to drink ensure protein shake. CT of the head no acute pathology CT of the face showed old left orbital fracture inferiorly X-ray of the right elbow showed olecranon process spur with some soft tissue swelling EKG showed sinus rhythm Alcohol level was <10 Patient was transferred to the ICU for close monitoring on 03/18 Assessment: Alcohol abuse with alcohol withdrawal syndrome Delirium tremens Rhabdomyolysis Encephalopathy with hallucinations Plan Benzodiazepines per CIWA scale IV fluid hydration, Thiamine Seizure precautions, Fall precautions Computed tomography scan of the head showed no acute findings. MRI of the brain was no acute finding Consulted neurology and psychiatry for further evaluation EEG was abnormal with generalized cerebral dysfunction and evidence of toxic metabolic encephalopathy Acute toxo metabolic encephalopathy Sepsis without septic shock Concerns about meningitis, ruled out Bacteremia, contamination with staph epidermidis Started on broad spectrum antibiotic with vancomycin, ceftriaxone, and acyclovir for suspected meningitis on presentation. Antibiotic is been adjusted by infectious disease currently on IV cefepime and vancomycin. CSF fluid not consistent with bacterial meningitis. HSV PCR negative MRI of the lumbar spine with no evidence of discitis or prevertebral abscess Blood gas showed no evidence of acute CO2 narcosis Chest x-ray with questionable pneumonia Poor living condition Recurrent episodes of hospital admission for alcohol abuse Severo. life stressor with possible major depression Plan We will reconsult psychiatry when mentation improves sample worker consultation Macrocytic anemia mild Most likely secondary to alcohol abuse No reported GI bleeding Multiple skin abrasions Left eye bruising No acute fractures identified Hypernatremia Improved with IV fluid GI prophylaxis PPI CODE STATUS: Full code DVT prophylaxis: Mechanical Discussed with: Patient, ER, RN Anticipated length of stay more than [address]: Pending clinical course A total of 65 minutes was spent on the care of this complex patient more than 50% of the time was spent in counseling and care coordination.
[2021-03-21 12:07] LABS: Glucose,Whole Blood 115 mg/dL (75-99)
--- NOTE | 2021-03-21 12:43 | P.PN ---
Subjective Progress Note Date: 03/21/21 Principal diagnosis: Altered mental status, aspiration pneumonia, acute EtOH withdrawal This a 55-year-old white male patient who was admitted to the hospital on March 14, 2021 when he was found delirious and confused by his neighbor and his home. Patient was found laying on the floor, in his own feces, he had a bunch alcohol bottles lying around him. he had multiple bruises and abrasions in different stages of healing. He has a hematoma to his left eye , and abrasions on his knees and lower extremities. Tendon has a history of mathews abuse, eats marijuana edibles. Drug screen was positive for marijuana, benzodiazepines. His alcohol level was less than 10. Brain CT showed no acute intracranial abnormality, no fracture, cervical spine, additional spondylotic changes in the cervical spine. CT of the facial bones showed evidence of old fracture of the floor of the left bony orbit, no acute fractures. Initial chest x-ray showed minimal subsegmental atelectasis in the right lung base without change. EKG showed sinus rhythm. Initial blood work showed a white count of 7.8, hemoglobin 12.3, INR of 1.2, sodium was 153, potassium 3.4, chloride is 115, CO2 is 24, B1 and creatinine 0.74, troponin was 0.016. Patient was started on benzodiazepines in the form of Ativan per CIWA protocol. Neurology consultation was obtained. Psychiatric services are following. Patient is on thiamine and folate per CIWA protocol. ABG showed moderate to severe degree of slowing, consistent with toxic metabolic encephalopathy, no epileptiform discharges were seen. This morning patient started spiking fevers with a temp of 101.4F, he is also requiring supplemental oxygen currently at 2 L with a pulse ox of 93-97%, he is receiving Valium and when necessary Ativan. Quite lethargic, confused, he opens eyes to voice, however he is not able to provide any meaningful verbal responses. Today's chest x-ray has been reviewed showing right basilar patchy infiltrate and/or atelectasis. Patient was placed on empiric antibiotics in the form of Rocephin and vancomycin. In view of altered mentation and fever lumbar puncture was requested however anesthesia was unable to perform it because Lovenox was given this morning. We were consulted in view of depressed level of consciousness related to benzodiazepines and possibility of needing to intubate the patient placement on mechanical ventilator. Blood gas has been obtained showing pO2 of 85, pCO2 of 33, pH of 7.51 this was done on FiO2 of 28%, patient is breathing fairly comfortably, does not appear to be in any acute distress, head of the bed is up 35, he is currently on 2 L of oxygen, his pulse ox is 97%. No coughing or wheezing. He continues on empiric antibiotics. On today's evaluation of a 2020, the patient is essentially the same. No major improvement in his underlying mental status. The patient remains encephalopathic. He is unable to say. This is 50 gases some few words such as yes or no. Unable to follow any commands. His been having also episodes of fever. Based on all this, the patient underwent a lumbar puncture suspecting encephalitis. No neck stiffness. The lumbar puncture was completed and the patient was found to have elevated CSF protein. The total white cell count was 18. The patient had 85% polys tear cells and 50% mononuclear cells. The CSF protein was 226. Glucose is a 69. Patient was also covered with broad-spectrum antibiotics including a combination of Rocephin and vancomycin. The patient is also on acyclovir IV 1 g 3 times a day. The white cell count is 11.5 with hemoglobin of 12.1. INR is at 1.4. BUN is at 4 with a creatinine of 0.5. Rest of the electrodes are within normal limits. No seizure activity has been noted. EEG was done and was quite abnormal due to background slowing and moderate to severe slowing of the EEG activity suggestive of generalized cerebral dysfunction. Neurology is on the case for now. In terms of alcohol withdrawal, delirium tremors, the patient is currently on Ativan based on the CIAL protocol. The patient is also on D5 half-normal saline today to 100 mL an hour. The patient will be transferred to the intensive care unit for further monitoring. 03/19/2021, the patient is still encephalopathic. Slightly more rested and more awake compared to yesterday. Nevertheless he remains encephalopathic. No neck stiffness. No headaches. MRI of the brain was done and showed no acute abnormalities. As stated earlier, his CSF evaluation was not consistent with bacterial meningitis. HSV by PCR still pending. He remains on vancomycin. He remains on Rocephin. He remains on acyclovir. He is receiving Ativan per CIWA protocol. He is on D5 half-normal saline at the rate of 100 mL an hour. Hemo dynamically stable. Pulse ox is 98% on 2 L of oxygen by nasal cannula. Chest x-ray shows no evidence of any pneumonia. Note that his urine drug screen was positive for benzodiazepines and marijuana. His blood work from today shows a WD second of 11.8 with hemoglobin of 12.3. Platelets is at 193. Electrolytes are normal. Renal functions are normal. Hepatic function is normal. Albumin is at 2.1 with a protein of 4.8. On today's evaluation of a 03/20/2021, the patient is breathing comfortably. The patient got transferred out of the intensive care unit. Currently is on room air oxygen. He remains somewhat encephalopathic. No agitation. No other significant respiratory distress. No significant tachycardia. Lumbar puncture came back negative for any bacterial growth. Lumbar puncture was also negative for HSV by PCR. Acyclovir was discontinued. There was a concern that the p atient may have a septic joint. He was seen by orthopedic surgery. He is left ankle was drained. A total of 60 mL of fluid was removed from the ankle and was sent to lab. Patient was kept on antibiotics and patient is currently on a combination of cefepime and vancomycin. Cultures are all negative the white cell count. The white cell count is at 11.8. INR is at 1.4 with a PT of 13.8. His creatinine today is 0.7. MRI of the lumbar spine was done and showed no evidence of any discitis. No significant disc space narrowing. There is evidence of no fracture. There is evidence of multiple. Mild joint facet arthropathy. On 03/21/2021 patient seen in follow-up on selective care unit, he is much more awake today, is responding verbally, he knows he is in the hospital, he is oriented to person, denies any acute distress. He denies heavy alcohol intake. He states he fell at home, and he was stone sober at the time. Currently he is on room air, with pulse ox of 97%, vital signs have been stable, his been afebrile. He remains on cefepime and vancomycin. His chest x-ray on 03/11/2021 showed a subsegmental basilar atelectatic changes. His CSF cultures have shown no growth after 3 days, blood culture from 03/11/2021 showed Staphylococcus epidermidis likely related to skin contamination, left ankle wound culture has shown no growth. His vital signs have been stable, he denies any difficulty breathing, no cough, no phlegm production, no chest discomfort, today's labs show a white blood cell count of 8.6, hemoglobin of 11.5. MRI of the spine showed no evidence of discitis, no disc space narrowing, no fracture. There was a multilevel mild facet arthropathy and mild lateral recess stenosis, those multilevel mild posterior disc bulging without spinal stenosis. Objective - Vital Signs Vital signs: Vital Signs Temp 97.9 F 03/21/21 12:05 Pulse 106 H 03/21/21 12:05 Resp 18 03/21/21 12:05 BP 117/80 03/21/21 12:05 Pulse Ox 97 03/21/21 12:05 Intake & Output 03/20/21 03/21/21 03/21/21 18:59 06:59 18:59 Intake Total 0 120 Output Total 825 800 500 Balance -825 -800 -380 Weight 89 kg 89 kg Intake: Oral 0 120 Output: Urine 825 800 500 Uretheral (Rendon) 175 Other: Voiding Method Indwelling Catheter Indwelling Catheter Indwelling Catheter # Bowel Movements 2 - Exam GENERAL EXAM: Alert, much more responsive on today's exam, 55-year-old male, on room air with a pulse ox of 97%, with bruising on his face, arms and legs and over left eye, oriented to person and place comfortable in no apparent distress. HEAD: Normocephalic/atraumatic. EYES: Normal reaction of pupils, equal size. Conjunctiva pink, sclera white. NOSE: Clear with pink turbinates. THROAT: No erythema or exudates. NECK: No masses, no JVD, no thyroid enlargement, no adenopathy. CHEST: No chest wall deformity. Symmetrical expansion. LUNGS: Equal air entry with no crackles, wheeze, rhonchi or dullness. CVS: Regular rate and rhythm, normal S1 and S2, no gallops, no murmurs, no rubs ABDOMEN: Soft, nontender. No hepatosplenomegaly, normal bowel sounds, no guarding or rigidity. EXTREMITIES: No clubbing, no edema, no cyanosis, 2+ pulses and upper and lower extremities. MUSCULOSKELETAL: Muscle strength and tone normal. SPINE: No scoliosis or deformity SKIN: No rashes, abrasions and bruising on bilateral lower extremities, arms, and over the left eye CENTRAL NERVOUS SYSTEM: Alert and oriented -2. No focal deficits, tone is normal in all 4 extremities. PSYCHIATRIC: Alert and oriented -2. Appropriate affect. Intact judgment and insight. - Labs CBC & Chem 7: 03/21/21 06:17 03/20/21 07:34 Labs: Abnormal Lab Results - Last 24 Hours (Table) 03/17/21 03/21/21 03/21/21 Range/Units 07:00 06:17 06:17 RBC 3.45 L (4.30-5.90) m/uL Hgb 11.5 L (13.0-17.5) gm/dL Hct 34.4 L (39.0-53.0) % Lymphocytes # 0.9 L (1.0-4.8) k/uL ESR 77 H (0-15) mm/hr POC Glucose (mg/dL) (75-99) mg/dL C-Reactive Protein 8.1 H (<1.0) mg/dL Vitamin B6 3 L (5-50) ug/L 03/21/21 Range/Units 12:05 RBC (4.30-5.90) m/uL Hgb (13.0-17.5) gm/dL Hct (39.0-53.0) % Lymphocytes # (1.0-4.8) k/uL ESR (0-15) mm/hr POC Glucose (mg/dL) 115 H (75-99) mg/dL C-Reactive Protein (<1.0) mg/dL Vitamin B6 (5-50) ug/L Microbiology - Last 24 Hours (Table) 03/19/21 11:55 Gram Stain - Final Ankle - Left Wound Culture - Final 03/17/21 09:05 Blood Culture - Preliminary Blood No Growth after 96 hours 03/18/21 11:35 CSF Gram Stain - Preliminary Cerebral Spinal Fluid CSF Culture - Preliminary 03/19/21 14:59 Blood Culture Gram Stain - Preliminary Blood Blood Culture - Preliminary Staphylococcus epidermidis 03/19/21 14:59 Blood Culture - Final Blood Assessment and Plan Plan: Assessment: #1. Acute hypoxic respiratory failure related to atelectasis, and possibility of right basilar pneumonia is not completely excluded, chest x-ray showing right basilar patchy infiltrate. Currently patient is on room air, follow-up chest x- ray showed subsegmental basilar atelectatic changes. No clear evidence of pneumonia. No pulmonary symptoms #2. Altered mental status, related to acute delirium tremens. CT of the head and cervical spine showing no acute pathology, CSF cultures remain negative. HSV by PCR was negative. Cultures remain negative, MRI of the brain was n egative, no seizure activity. Her mentation is much improved, and patient is oriented to person and place #3. History of prescription drug abuse, alcohol abuse #4. Falls at home, related to altered mental status #5. Multiple skin abrasions, including left eye bruising, with a CT of the face showing no acute fractures #6. Hypernatremia related to dehydration free water deficit, improved with IV fluids #7. Hypertension #8. GERD/reflux #9. Anxiety Plan: Clinically patient has improved, hypoxia has resolved Mentation is significantly improved, he is much more awake and alert, and responding appropriately Chest x-ray has been reviewed, no clear evidence of pneumonia Continues on antibiotics All cultures remain negative thus far, with the exception of blood culture with staph epidermidis likely related to contamination Maintain safety precautions We'll continue to closely follow I performed a history & physical examination of the patient and discussed their management with my nurse practitioner, Naila Pryor. I reviewed the nurse practitioner's note and agree with the documented findings and plan of care. Lung sounds are positive for diffuse wheezes throughout the lung licea. The findings and the impression was discussed with the patient. I attest to the documentation by the nurse practitioner. Time with Patient: Less than 30
--- NOTE | 2021-03-21 13:15 | P.PN ---
Subjective Progress Note Date: 03/21/21 Principal diagnosis: Left ankle pain, cellulitis Patient was seen at bedside this morning on cardiac floor. Patient is able to respond to verbal questions today. Patient is lying semirecumbent in bed. When patient was asked to bend left ankle he moans in pain. Patient denies chest pain, fever, shortness breath, nausea, vomiting, change in vision, loss of bowel/bladder control. Objective - Vital Signs Vital signs: Vital Signs Temp 97.9 F 03/21/21 10:38 Pulse 101 H 03/21/21 10:38 Resp 20 03/21/21 10:38 BP 114/80 03/21/21 10:38 Pulse Ox 97 03/21/21 10:38 Intake & Output 03/20/21 03/21/21 03/21/21 18:59 06:59 18:59 Intake Total 0 120 Output Total 825 800 500 Balance -825 -800 -380 Weight 89 kg 89 kg Intake: Oral 0 120 Output: Urine 825 800 500 Uretheral (Rendon) 175 Other: Voiding Method Indwelling Catheter Indwelling Catheter Indwelling Catheter # Bowel Movements 2 - Exam left ankle: Left ankle examined at bedside this morning. When left ankle is dorsiflexed patient moans in pain. The area of erythema seems to be less compared to yesterday around the ankle. There is still some swelling around the foot and ankle. DP pulses intact. Cap refill under 3 seconds. - Labs CBC & Chem 7: 03/21/21 06:17 03/20/21 07:34 Labs: Abnormal Lab Results - Last 24 Hours (Table) 03/17/21 03/21/21 03/21/21 Range/Units 07:00 06:17 06:17 RBC 3.45 L (4.30-5.90) m/uL Hgb 11.5 L (13.0-17.5) gm/dL Hct 34.4 L (39.0-53.0) % Lymphocytes # 0.9 L (1.0-4.8) k/uL ESR 77 H (0-15) mm/hr C-Reactive Protein 8.1 H (<1.0) mg/dL Vitamin B6 3 L (5-50) ug/L Microbiology - Last 24 Hours (Table) 03/19/21 11:55 Gram Stain - Final Ankle - Left Wound Culture - Final 03/17/21 09:05 Blood Culture - Preliminary Blood No Growth after 96 hours 03/18/21 11:35 CSF Gram Stain - Preliminary Cerebral Spinal Fluid CSF Culture - Preliminary 03/19/21 14:59 Blood Culture Gram Stain - Preliminary Blood Blood Culture - Preliminary Staphylococcus epidermidis 03/19/21 14:59 Blood Culture - Final Blood Assessment and Plan Assessment: Left ankle pain, cellulitis rule out septic arthritis Plan: 1. Left ankle pain, cellulitis rule out septic arthritis -aspiration was performed Sunday01/17/2021 the left ankle where 6 mL of serous joint fluid was aspirated and sent to lab for culture, Gram stain, crystals, aerobic and anaerobic cultures. Final results for Gram Stain and aerobic cultures of left ankle negative. Awaiting anaerobic culture final results. No urgent surgical intervention planned at this time from orthopedic standpoint. Patient stable from an orthopedic standpoint. 2. Appreciate medical management 3. Pain management - stable at this time 4. GI prophylaxis/DVT prophylaxis - Protonix; Mechanical - SCDs 5. PT/OT - weightbearing as tolerated with assistance 6. Appreciate consult Time with Patient: Less than 30
--- NOTE | 2021-03-21 16:04 | PN ---
PROGRESS NOTE DATE OF SERVICE: 03/21/2021 REASON FOR FOLLOWUP: Fever and bacteremia. INTERVAL HISTORY: The patient is afebrile. The patient is more awake and alert today. He is feeling better, breathing comfortably, currently on room air. Denies having any chest pain or shortness of breath or cough. No abdominal pain. Pain to the left ankle is currently controlled or better. PHYSICAL EXAMINATION: Blood pressure 117/80 with a pulse of 106, temperature 97.9. He is 97% on room air. GENERAL DESCRIPTION: General description is a middle-aged male lying in bed in no distress. RESPIRATORY SYSTEM: Unlabored breathing. Clear to auscultation anteriorly. HEART: S1, S2. Regular rate and rhythm. ABDOMEN: Soft. No tenderness. Left ankle did have swelling. No redness or drainage. LABS: Hemoglobin is 11.5, white count 8.6. Sed rate is . Blood culture with Staph epi. Left ankle culture so far negative. DIAGNOSTIC IMPRESSION AND PLAN: Patient with a fever with concern for possibly related to his versus left ankle cellulitis. The patient did have positive blood culture with Staph epi; could be a contaminant. Blood culture has been repeated to document clearance of bacteremia. Continue the vancomycin and cefepime and monitor his clinical course closely. Continue supportive care. MMODL / IJN: [id number] /
[2021-03-21 16:41] LABS: Glucose,Whole Blood 100 mg/dL (75-99)
--- NOTE | 2021-03-21 16:57 | P.PN ---
Subjective Progress Note Date: 03/21/21 I am seeing the patient for the first time. Please refer Dr. Miller's note for further details. Per the patient's nurse, he is doing much better today compared the last two days and is more awake and responsive. He denies of headache currently, nausea or vomiting. He denies of any diplopia. Objective - Vital Signs Vital signs: Vital Signs Temp 99.0 F 03/21/21 16:05 Pulse 112 H 03/21/21 16:05 Resp 18 03/21/21 16:05 BP 119/77 03/21/21 16:05 Pulse Ox 97 03/21/21 16:05 Intake & Output 03/20/21 03/21/21 03/21/21 18:59 06:59 18:59 Intake Total 0 920 Output Total 825 800 500 Balance -825 -800 420 Weight 89 kg 89 kg Intake: Intake, IV Titration 350 Amount Cefepime 2 gm In Sodium 100 Chloride 0.9% 100 ml @ 25 mls/hr IVPB Q8HR [facility] Rx# :[id number] Vancomycin 1,500 mg In 250 Sodium Chloride 0.9% 250 ml @ 125 mls/hr IVPB Q8H [facility] Rx#:[id number] Oral 0 570 Output: Urine 825 800 500 Uretheral (Rendon) 175 Other: Voiding Method Indwelling Catheter Indwelling Catheter Indwelling Catheter # Bowel Movements 2 - Exam GENERAL: The patient is lying in bed and is not in acute distress. NEUROLOGICAL: Higher mental function: The patient is awake, alert, oriented to self and stated he was in the hospital. He stated the year is 1926. Patient is able to name objects correctly (pen, watch). He seems somewhat slow in responding. Patient is following commands. No aphasia from limited language. No neglect. Cranial nerves: The pupils are round, equal and reactive to light. Visual licea are full to confrontation throughout. Extraocular movement is hard to assess because of his cooperation but was looking to right and left. Has echymosis around the eye (mostly upper). Facial sensation is normal to touch throughout. The facial strength is normal throughout. No dysarthria is noted. Motor: The strength is moving upper extremities above gravity without focality. While lower he was moving the left lower above gravity and did not move the right lower extremity. Had antigravity of bilateral ankles. Normal tone and bulk in upper and hard to assess tone in lower because of his pain.. Cerebellum: Normal finger to nose. Sensation: Sensation is normal to touch throughout. Reflexes (right/left): 2+ uppers but did not allow me to test lowers because of his pain. Plantars are mute bilaterally. WORK-UP: * MRI of the brain revealed mild atrophy. Mild subependymal white matter increased signal around the lateral ventricles measuring up to 5 mm in thickness. No evidence of cortical infarct. * CerebroSpinal fluid examination revealed glucose 64 (40-70), proteins 226 (12- 60), total WBC count in CSF 18, out of its 15% monocytes and 85% polynuclear's. CSF RBC 5175, due to traumatic tap. * Patient's spinal fluid was traumatic because patient was not cooperating. CSF showsCSF shows very mild leukocytosis ( about 2-3 cells above normal after correction for traumatic tap), and very elevated proteins. Cultures so far negative. HSV-1 and 2 PCR in the CSF are negative. Viral test are negative. Infectious disease following. Acyclovir has been discontinued. Antibiotics have been tapered to control cryptogenic infection. Currently on cefepime 2gm q 8hr. Patient had undergone aspiration of right knee and left ankle, both of which have been negative for any growth. No crystals seen in the sinonasal fluid. * EEG was abnormal due to background slowing of moderate to severe degree. This is suggestive of generalized cerebral dysfunction, as can be seen with toxic metabolic encephalopathy or due to diffuse structural brain abnormality. No epileptiform activity was seen. * Carotid Doppler was technically difficult due to patient's inability to hold still. No hemodynamically significant ICA stenosis identified on either side. Antegrade flow in both vertebral arteries. * CPK is 999 on 03/14 but 217 on 03/16--improved. * B12 582 normal, however at MMA is elevated 0.46 (normal <0.40). This may indicate intracellular deficiency of B12. Patient's folate 5.7, TSH 1.77, RPR nonreactive. * Ammonia level 12 (normal) * MRI of the lumbar spine with and without contrast revealed no evidence of discitis. No significant disc space narrowing. No fracture. Multilevel mild facet arthropathy and mild lateral recess stenosis. Multilevel mild posterior disc bulging without spinal stenosis. - Labs CBC & Chem 7: 03/21/21 06:17 03/20/21 07:34 Labs: Abnormal Lab Results - Last 24 Hours (Table) 03/17/21 03/21/21 03/21/21 Range/Units 07:00 06:17 06:17 RBC 3.45 L (4.30-5.90) m/uL Hgb 11.5 L (13.0-17.5) gm/dL Hct 34.4 L (39.0-53.0) % Lymphocytes # 0.9 L (1.0-4.8) k/uL ESR 77 H (0-15) mm/hr POC Glucose (mg/dL) (75-99) mg/dL C-Reactive Protein (<1.0) mg/dL Vitamin B6 3 L (5-50) ug/L Procalcitonin 50.22 H (0.02-0.09) ng/mL 03/21/21 03/21/21 Range/Units 06:17 12:05 RBC (4.30-5.90) m/uL Hgb (13.0-17.5) gm/dL Hct (39.0-53.0) % Lymphocytes # (1.0-4.8) k/uL ESR (0-15) mm/hr POC Glucose (mg/dL) 115 H (75-99) mg/dL C-Reactive Protein 8.1 H (<1.0) mg/dL Vitamin B6 (5-50) ug/L Procalcitonin (0.02-0.09) ng/mL Microbiology - Last 24 Hours (Table) 03/19/21 14:59 Blood Culture Gram Stain - Preliminary Blood Blood Culture - Preliminary Staphylococcus epidermidis 03/19/21 11:55 Anaerobic Culture - Preliminary Ankle - Left 03/18/21 19:00 Anaerobic Culture - Preliminary Knee - Right 03/19/21 11:55 Gram Stain - Final Ankle - Left Wound Culture - Final 03/17/21 09:05 Blood Culture - Preliminary Blood No Growth after 96 hours 03/18/21 11:35 CSF Gram Stain - Preliminary Cerebral Spinal Fluid CSF Culture - Preliminary 03/19/21 14:59 Blood Culture - Final Blood Assessment and Plan Assessment: * 55-year-old male with history of alcoholism, was found at laying with fecal matter with multiple bruises, scratches and pressure sores over dependent areas, indicating patient has been on the floor for fairly long period of time. Last period of contact with his friends was on Sunday, 3 days prior to arrival. Unsure exact etiology. It was suspected Probable alcohol withdrawal/DTs/alcoholic hallucinosis, rule out infectious process. During the hospital stay he developed fevers. No definitive evidence of meningitis/encephalitis based upon CSF results. ----Patient condition is improving. * Low Vitamin B6 3 (normal is 5-50). * Hypertension * History of alcoholism * History of marijuana use. Plan: Acyclovir has been discontinued. Antibiotics have been tapered to control cryptogenic infection. Currently on cefepime 2gm q 8hr. Patient had undergone aspiration of right knee and left ankle, both of which have been negative for any growth. Continue folic acid 1mg daily and Vitamin B12 1000mcg daily. Continue Thiamine daily. Started the patient on Vitamin B6 50mg bid and within 2-3month recommend, recommend getting levels again and modify medication appropriately. The plan is discussed with the primary team and the patient's nurse. Will follow-up with patient sporadically. Osman Malone MD Neuro-Hospitalist Time with Patient: Less than 30
[2021-03-21] MEDS: PYRIDOXINE 50 MG TAB PO SCH (21:36)
[2021-03-22 00:59] LABS: Glucose,Whole Blood 106 mg/dL (75-99)
[2021-03-22 06:23] LABS: Glucose,Whole Blood 95 mg/dL (75-99)
[2021-03-22] MEDS: THIAMINE 100 MG TAB PO SCH (06:48)
[2021-03-22] MEDS: PANTOPRAZOLE 40 MG TABLET PO SCH (06:48)
--- NOTE | 2021-03-22 07:40 | P.PN ---
Subjective Progress Note Date: 03/22/21 pt s/e this AM. He is much more alert able to answer questions. When inquiring about his ankle, he states he fell 2 weeks ago on this foot as he tripped over the sidewalk and fell. He was able to ambulate on it after, although minimally. He has not walked on it recently that he can remember. He states no loss of feeling in it. States no tingling only pain on the top of the foot with motion. Denies any f/c/sob/cp overnight. Objective - Vital Signs Vital signs: Vital Signs Temp 99.8 F H 03/22/21 04:00 Pulse 105 H 03/22/21 04:00 Resp 18 03/22/21 04:00 BP 126/81 03/22/21 04:00 Pulse Ox 96 03/22/21 04:00 Intake & Output 03/21/21 03/22/21 03/22/21 18:59 06:59 18:59 Intake Total 920 Output Total 800 1390 Balance 120 -1390 Weight 89 kg 94 kg Intake: Intake, IV Titration 350 Amount Cefepime 2 gm In Sodium 100 Chloride 0.9% 100 ml @ 25 mls/hr IVPB Q8HR [facility] Rx# :[id number] Vancomycin 1,500 mg In 250 Sodium Chloride 0.9% 250 ml @ 125 mls/hr IVPB Q8H [facility] Rx#:[id number] Oral 570 Output: Urine 800 1390 Other: Voiding Method Indwelling Catheter Indwelling Catheter - Exam On exam, the erythema of the lateral left ankle is much better. wax pot tender to touch of the skin lending to possible cellulitis. He has bruising about the foot and dorsal foot. He has ttp of the dorsal foot over most aspects, not entirely localized at this time. He does have pain with ankle motion passively, but states it is in the top of the foot. Actively he is able to fire EHL/FHL without any issues. SILT L2-S1. 2/4 DP/PT pulses. Compartment soft and compressive. - Constitutional General appearance: Present: cooperative, disheveled - Labs CBC & Chem 7: 03/21/21 06:17 03/20/21 07:34 Labs: Abnormal Lab Results - Last 24 Hours (Table) 03/17/21 03/21/21 03/21/21 Range/Units 07:00 06:17 06:17 ESR 77 H (0-15) mm/hr POC Glucose (mg/dL) (75-99) mg/dL Vitamin B6 3 L (5-50) ug/L Procalcitonin 50.22 H (0.02-0.09) ng/mL 03/21/21 03/21/21 03/22/21 Range/Units 12:05 16:38 00:57 ESR (0-15) mm/hr POC Glucose (mg/dL) 115 H 100 H 106 H (75-99) mg/dL Vitamin B6 (5-50) ug/L Procalcitonin (0.02-0.09) ng/mL Microbiology - Last 24 Hours (Table) 03/20/21 17:40 Blood Culture - Preliminary Blood No Growth after 24 hours 03/19/21 14:59 Blood Culture Gram Stain - Preliminary Blood Blood Culture - Preliminary Staphylococcus epidermidis 03/19/21 11:55 Anaerobic Culture - Preliminary Ankle - Left 03/18/21 19:00 Anaerobic Culture - Preliminary Knee - Right 03/19/21 11:55 Gram Stain - Final Ankle - Left Wound Culture - Final 03/17/21 09:05 Blood Culture - Preliminary Blood No Growth after 96 hours 03/18/21 11:35 CSF Gram Stain - Preliminary Cerebral Spinal Fluid CSF Culture - Preliminary Assessment and Plan Assessment: 55-year-old male acute metabolic encephalopathy Left ankle pain, cellulitis rule out septic arthritis Right ankle pain Multiple superficial abrasions Status post fall from standing with likely blunt head trauma multiple medical comorbidities EtOH abuse Plan: -Appreciate [employer] consultant and team management. -Primary medical management -Plan to aspirate left ankle for synovial cultures as well as fluid analysis to rule out septic arthritis. This appears to be more of a cellulitic reaction in the area however with the extremely painful passive range of motion would like to rule this out. -MRI of L spine neg for infective process -Will order CT of left ankle and foot to r/o fracture. -Will get fracture boot for pt to keep in dorsiflexion and to immobilize and help with ambulation -Trend labs -ID for antibiotic management -Activity: Weightbearing as tolerated -Pain control: [Adequate at this time] -Meds: [reviewed] -GI ppx: senna, Miralax -DVT PPX: [OK to restart Heparin tonight] -Hygiene: Maintaining good hygiene -Log rolled every 2 hours -Encourage IS 10x/hr -Dispo: [Pending]
[2021-03-22] MEDS ORDERED: VANCOMYCIN TROUGH DUE 1 EACH MISC MISCELLANE ONE (08:00)
[2021-03-22] MEDS: FOLIC ACID 1 MG TAB PO SCH (08:17)
[2021-03-22] MEDS: PYRIDOXINE 50 MG TAB PO SCH ×2 (08:17→19:54)
[2021-03-22] MEDS: CYANOCOBALAMIN 1,000 MCG/ML 1 ML VIAL IM SCH (08:17)
[2021-03-22] MEDS: lisinopriL 10 MG TAB PO SCH (08:17)
[2021-03-22] MEDS: amLODIPine 5 MG TAB PO SCH ×2 (08:17→19:54)
[2021-03-22] MEDS: CEFEPIME 2 GM in SODIUM CHLORIDE 0.9% 100 ML IVPB SCH ×3 (08:18→23:21)
[2021-03-22 08:54] LABS: African American GFR (CKD) >90 (>60 ml/min/1.73 sqM); Anion Gap 9 mmol/L; Blood Urea Nitrogen 4 mg/dL (9-20); Calcium 8.3 mg/dL (8.4-10.2); Carbon Dioxide 22 mmol/L (22-30); Chloride 109 mmol/L (98-107); Glucose 90 mg/dL (74-99); Non-African American GFR(CKD) >90 (>60 ml/min/1.73 sqM); Potassium 3.1 mmol/L (3.5-5.1); Sodium 140 mmol/L (137-145)
[2021-03-22 08:57] LABS: African American GFR (CKD) >90 (>60 ml/min/1.73 sqM); Non-African American GFR(CKD) >90 (>60 ml/min/1.73 sqM)
[2021-03-22] MEDS: VANCOMYCIN 1,500 MG in SODIUM CHLORIDE 0.9% 250 ML IVPB SCH ×3 (09:26→19:54)
[2021-03-22 09:32] LABS: Basophils # (A) 0.1 k/uL (0-0.2); Basophils % (A) 1 %; Eosinophils # (A) 0.1 k/uL (0-0.7); Eosinophils % (A) 1 %; HCT 35.4 % (39.0-53.0); HGB 12.1 gm/dL (13.0-17.5); Lymphocytes # (A) 1.1 k/uL (1.0-4.8); Lymphocytes % (A) 9 %; MCH 33.9 pg (25.0-35.0); MCHC 34.1 g/dL (31.0-37.0); MCV 99.3 fL (80.0-100.0); Macrocytosis Slight; Mean Platelet Volume 9.9; Monocytes # (A) 0.9 k/uL (0-1.0); Monocytes % (A) 8 %; Neutrophils # (A) 9.2 k/uL (1.3-7.7); Neutrophils % (A) 80 %; Platelet Count 267 k/uL (150-450); RBC 3.56 m/uL (4.30-5.90); RDW 15.1 % (11.5-15.5); WBC 11.5 k/uL (3.8-10.6)
--- NOTE | 2021-03-22 10:38 | CT ---
EXAMINATION TYPE: CT lower extremity LT wo con DATE OF EXAM: 03/22/2021 COMPARISON: None HISTORY: Left ankle pain. CT DLP: 446.6 mGycm Automated exposure control for dose reduction was used. Unenhanced CT of the left ankle and foot was performed with bone and soft tissue window settings reviewed. 3-D reconstruction was performed at a [employer] workstation. FINDINGS: Moderate plantar and dorsal calcaneal spurs identified. Ankle mortise is intact. Well-corticated tiny ossific density adjacent to the medial malleolar tip may reflect nonacute small avulsion fracture versus unfused ossicle. Irregularity of the tip of the lateral malleolus is felt to reflect healed avulsion fracture. No acute fractures identified about the left ankle. Mild soft tissue swelling noted about the medial and lateral malleoli. Mild degenerative change of the midfoot. No fracture of the midfoot seen. Mild soft tissue swelling a bout the dorsum of the foot. No fracture of the left foot identified. IMPRESSION: 1. Chronic changes as noted. Soft tissue swelling. Calcaneal spurring.
[2021-03-22] MEDS: POTASSIUM CHLORIDE 10 MEQ in WATER FOR INJECTION 1 100ML.BAG IVPB SCH ×4 (11:38→15:17)
[2021-03-22 12:04] LABS: Glucose,Whole Blood 85 mg/dL (75-99)
--- NOTE | 2021-03-22 12:14 | P.PN ---
Subjective Progress Note Date: 03/22/21 Principal diagnosis: Altered mental status, aspiration pneumonia, acute EtOH withdrawal This a 55-year-old white male patient who was admitted to the hospital on March 14, 2021 when he was found delirious and confused by his neighbor and his home. Patient was found laying on the floor, in his own feces, he had a bunch alcohol bottles lying around him. he had multiple bruises and abrasions in different stages of healing. He has a hematoma to his left eye , and abrasions on his knees and lower extremities. Tendon has a history of mathews abuse, eats marijuana edibles. Drug screen was positive for marijuana, benzodiazepines. His alcohol level was less than 10. Brain CT showed no acute intracranial abnormality, no fracture, cervical spine, additional spondylotic changes in the cervical spine. CT of the facial bones showed evidence of old fracture of the floor of the left bony orbit, no acute fractures. Initial chest x-ray showed minimal subsegmental atelectasis in the right lung base without change. EKG showed sinus rhythm. Initial blood work showed a white count of 7.8, hemoglobin 12.3, INR of 1.2, sodium was 153, potassium 3.4, chloride is 115, CO2 is 24, B1 and creatinine 0.74, troponin was 0.016. Patient was started on benzodiazepines in the form of Ativan per [facility] protocol. Neurology consultation was obtained. Psychiatric services are following. Patient is on thiamine and folate per [facility] protocol. ABG showed moderate to severe degree of slowing, consistent with toxic metabolic encephalopathy, no epileptiform discharges were seen. This morning patient started spiking fevers with a temp of 101.4F, he is also requiring supplemental oxygen currently at 2 L with a pulse ox of 93-97%, he is receiving Valium and when necessary Ativan. Quite lethargic, confused, he opens eyes to voice, however he is not able to provide any meaningful verbal responses. Today's chest x-ray has been reviewed showing right basilar patchy infiltrate and/or atelectasis. Patient was placed on empiric antibiotics in the form of Rocephin and vancomycin. In view of altered mentation and fever lumbar puncture was requested however anesthesia was unable to perform it because Lovenox was given this morning. We were consulted in view of depressed level of consciousness related to benzodiazepines and possibility of needing to intubate the patient placement on mechanical ventilator. Blood gas has been obtained showing pO2 of 85, pCO2 of 33, pH of 7.51 this was done on FiO2 of 28%, patient is breathing fairly comfortably, does not appear to be in any acute distress, head of the bed is up 35, he is currently on 2 L of oxygen, his pulse ox is 97%. No coughing or wheezing. He continues on empiric antibiotics. On today's evaluation of a 2020, the patient is essentially the same. No major improvement in his underlying mental status. The patient remains encephalopathic. He is unable to say. This is 50 gases some few words such as yes or no. Unable to follow any commands. His been having also episodes of fever. Based on all this, the patient underwent a lumbar puncture suspecting encephalitis. No neck stiffness. The lumbar puncture was completed and the patient was found to have elevated CSF protein. The total white cell count was 18. The patient had 85% polys tear cells and 50% mononuclear cells. The CSF protein was 226. Glucose is a 69. Patient was also covered with broad-spectrum antibiotics including a combination of Rocephin and vancomycin. The patient is also on acyclovir IV 1 g 3 times a day. The white cell count is 11.5 with hemoglobin of 12.1. INR is at 1.4. BUN is at 4 with a creatinine of 0.5. Rest of the electrodes are within normal limits. No seizure activity has been noted. EEG was done and was quite abnormal due to background slowing and moderate to severe slowing of the EEG activity suggestive of generalized cerebral dysfunction. Neurology is on the case for now. In terms of alcohol withdrawal, delirium tremors, the patient is currently on Ativan based on the [facility] protocol. The patient is also on D5 half-normal saline today to 100 mL an hour. The patient will be transferred to the intensive care unit for further monitoring. 03/19/2021, the patient is still encephalopathic. Slightly more rested and more awake compared to yesterday. Nevertheless he remains encephalopathic. No neck stiffness. No headaches. MRI of the brain was done and showed no acute abnormalities. As stated earlier, his CSF evaluation was not consistent with bacterial meningitis. HSV by PCR still pending. He remains on vancomycin. He remains on Rocephin. He remains on acyclovir. He is receiving Ativan per [facility] protocol. He is on D5 half-normal saline at the rate of 100 mL an hour. Hemo dynamically stable. Pulse ox is 98% on 2 L of oxygen by nasal cannula. Chest x-ray shows no evidence of any pneumonia. Note that his urine drug screen was positive for benzodiazepines and marijuana. His blood work from today shows a WD second of 11.8 with hemoglobin of 12.3. Platelets is at 193. Electrolytes are normal. Renal functions are normal. Hepatic function is normal. Albumin is at 2.1 with a protein of 4.8. On today's evaluation of a 03/20/2021, the patient is breathing comfortably. The patient got transferred out of the intensive care unit. Currently is on room air oxygen. He remains somewhat encephalopathic. No agitation. No other significant respiratory distress. No significant tachycardia. Lumbar puncture came back negative for any bacterial growth. Lumbar puncture was also negative for HSV by PCR. Acyclovir was discontinued. There was a concern that the p atient may have a septic joint. He was seen by orthopedic surgery. He is left ankle was drained. A total of 60 mL of fluid was removed from the ankle and was sent to lab. Patient was kept on antibiotics and patient is currently on a combination of cefepime and vancomycin. Cultures are all negative the white cell count. The white cell count is at 11.8. INR is at 1.4 with a PT of 13.8. His creatinine today is 0.7. MRI of the lumbar spine was done and showed no evidence of any discitis. No significant disc space narrowing. There is evidence of no fracture. There is evidence of multiple. Mild joint facet arthropathy. On 03/21/2021 patient seen in follow-up on selective care unit, he is much more awake today, is responding verbally, he knows he is in the hospital, he is oriented to person, denies any acute distress. He denies heavy alcohol intake. He states he fell at home, and he was stone sober at the time. Currently he is on room air, with pulse ox of 97%, vital signs have been stable, his been afebrile. He remains on cefepime and vancomycin. His chest x-ray on 03/11/2021 showed a subsegmental basilar atelectatic changes. His CSF cultures have shown no growth after 3 days, blood culture from 03/11/2021 showed Staphylococcus epidermidis likely related to skin contamination, left ankle wound culture has shown no growth. His vital signs have been stable, he denies any difficulty breathing, no cough, no phlegm production, no chest discomfort, today's labs show a white blood cell count of 8.6, hemoglobin of 11.5. MRI of the spine showed no evidence of discitis, no disc space narrowing, no fracture. There was a multilevel mild facet arthropathy and mild lateral recess stenosis, those multilevel mild posterior disc bulging without spinal stenosis. on 03/22/2021 patient seen in follow-up on selective care unit, he is awake and alert, in no acute distress, room air pulse ox is 97%, he is breathing comfortably, no cough, no complaints of chest discomfort, normal production, still is having fevers, T-max in the last 24 hours is 102F. his follow-up blood culture from 03/20/2021 showed no growth, patient remains on cefepime and vancomycin. today's labs have been reviewed, self liquid silk on is to 11.5, hemoglobin is 12.1. sodium is 140, potassium 3.1, this was replaced per protocol, chloride is 10 9, BUN is 4, creatinine 0.36, pro calcitonin level is 50. patient is a combination of cefepime and vancomycin. orthopedic surgery is following, patient has left ankle pain , CT of the left lower extremity showed soft tissue swelling and calcaneal spurring. no altered mentation, patient awake and alert and oriented times 3. Objective - Vital Signs Vital signs: Vital Signs Temp 98.4 F 03/22/21 11:40 Pulse 118 H 03/22/21 11:40 Resp 18 03/22/21 11:40 BP 127/66 03/22/21 11:40 Pulse Ox 97 03/22/21 11:40 Intake & Output 03/21/21 03/22/21 03/22/21 18:59 06:59 18:59 Intake Total 920 Output Total 800 1390 Balance 120 -1390 Weight 89 kg 94 kg Intake: Intake, IV Titration 350 Amount Cefepime 2 gm In Sodium 100 Chloride 0.9% 100 ml @ 25 mls/hr IVPB Q8HR [facility] Rx# :[id number] Vancomycin 1,500 mg In 250 Sodium Chloride 0.9% 250 ml @ 125 mls/hr IVPB Q8H [facility] Rx#:[id number] Oral 570 Output: Urine 800 1390 Other: Voiding Method Indwelling Catheter Indwelling Catheter Indwelling Catheter # Bowel Movements 1 - Exam GENERAL EXAM: Alert, much more responsive on today's exam, 55-year-old male, on room air with a pulse ox of 97%, with bruising on his face, arms and legs and over left eye, oriented to person and place comfortable in no apparent distress. HEAD: Normocephalic/atraumatic. EYES: Normal reaction of pupils, equal size. Conjunctiva pink, sclera white. NOSE: Clear with pink turbinates. THROAT: No erythema or exudates. NECK: No masses, no JVD, no thyroid enlargement, no adenopathy. CHEST: No chest wall deformity. Symmetrical expansion. LUNGS: Equal air entry with no crackles, wheeze, rhonchi or dullness. CVS: Regular rate and rhythm, normal S1 and S2, no gallops, no murmurs, no rubs ABDOMEN: Soft, nontender. No hepatosplenomegaly, normal bowel sounds, no guarding or rigidity. EXTREMITIES: No clubbing, no edema, no cyanosis, 2+ pulses and upper and lower extremities. MUSCULOSKELETAL: Muscle strength and tone normal. SPINE: No scoliosis or deformity SKIN: No rashes, abrasions and bruising on bilateral lower extremities, arms, and over the left eye CENTRAL NERVOUS SYSTEM: Alert and oriented -2. No focal deficits, tone is normal in all 4 extremities. PSYCHIATRIC: Alert and oriented -2. Appropriate affect. Intact judgment and insight. - Labs CBC & Chem 7: 03/22/21 08:02 03/22/21 08:02 Labs: Abnormal Lab Results - Last 24 Hours (Table) 03/21/21 03/21/21 03/21/21 Range/Units 06:17 12:05 16:38 WBC (3.8-10.6) k/uL RBC (4.30-5.90) m/uL Hgb (13.0-17.5) gm/dL Hct (39.0-53.0) % Neutrophils # (1.3-7.7) k/uL Potassium (3.5-5.1) mmol/L Chloride (98-107) mmol/L BUN (9-20) mg/dL Creatinine (0.66-1.25) mg/dL POC Glucose (mg/dL) 115 H 100 H (75-99) mg/dL Calcium (8.4-10.2) mg/dL Procalcitonin 50.22 H (0.02-0.09) ng/mL 03/22/21 03/22/21 03/22/21 Range/Units 00:57 08:02 08:02 WBC 11.5 H (3.8-10.6) k/uL RBC 3.56 L (4.30-5.90) m/uL Hgb 12.1 L (13.0-17.5) gm/dL Hct 35.4 L (39.0-53.0) % Neutrophils # 9.2 H (1.3-7.7) k/uL Potassium 3.1 L (3.5-5.1) mmol/L Chloride 109 H (98-107) mmol/L BUN 4 L (9-20) mg/dL Creatinine 0.34 L (0.66-1.25) mg/dL POC Glucose (mg/dL) 106 H (75-99) mg/dL Calcium 8.3 L (8.4-10.2) mg/dL Procalcitonin (0.02-0.09) ng/mL 03/22/21 Range/Units 08:02 WBC (3.8-10.6) k/uL RBC (4.30-5.90) m/uL Hgb (13.0-17.5) gm/dL Hct (39.0-53.0) % Neutrophils # (1.3-7.7) k/uL Potassium (3.5-5.1) mmol/L Chloride (98-107) mmol/L BUN (9-20) mg/dL Creatinine 0.36 L (0.66-1.25) mg/dL POC Glucose (mg/dL) (75-99) mg/dL Calcium (8.4-10.2) mg/dL Procalcitonin (0.02-0.09) ng/mL Microbiology - Last 24 Hours (Table) 03/17/21 09:05 Blood Culture - Preliminary Blood No Growth after 120 hours 03/20/21 17:40 Blood Culture - Preliminary Blood No Growth after 24 hours 03/19/21 14:59 Blood Culture Gram Stain - Preliminary Blood Blood Culture - Preliminary Staphylococcus epidermidis 03/19/21 11:55 Anaerobic Culture - Preliminary Ankle - Left 03/18/21 19:00 Anaerobic Culture - Preliminary Knee - Right 03/19/21 11:55 Gram Stain - Final Ankle - Left Wound Culture - Final 03/18/21 11:35 CSF Gram Stain - Preliminary Cerebral Spinal Fluid CSF Culture - Preliminary Assessment and Plan Plan: Assessment: #1. Acute hypoxic respiratory failure related to atelectasis, and possibility of right basilar pneumonia is not completely excluded, chest x-ray showing right basilar patchy infiltrate. Currently patient is on room air, follow-up chest x- ray showed subsegmental basilar atelectatic changes. No clear evidence of pneumonia. No pulmonary symptoms #2. Altered mental status, related to acute delirium tremens. CT of the head and cervical spine showing no acute pathology, CSF cultures remain negative. HSV by PCR was negative. Cultures remain negative, MRI of the brain was negative, no seizure activity. Her mentation is much improved, and patient is oriented to person and place #3. History of prescription drug abuse, alcohol abuse #4. Falls at home, related to altered mental status #5. Multiple skin abrasions, including left eye bruising, with a CT of the face showing no acute fractures #6. Hypernatremia related to dehydration free water deficit, improved with IV fluids #7. Hypertension #8. GERD/reflux #9. Anxiety Plan: continue antibiotics per ID service recommendations no clear evidence of pneumonia however procalcitonin level was significantly elevated at 50 with no clear source of infection blood cultures have been reviewed, CSF cultures are negative, left ankle imaging reviewed, orthopedic surgeries following Breathing comfortably, encourage deep breathing and coughing, and incentive spirometry use we'll continue to follow I performed a history & physical examination of the patient and discussed their management with my nurse practitioner, Naila Pryor. I reviewed the nurse practitioner's note and agree with the documented findings and plan of care. Lung sounds are positive for diffuse wheezes throughout the lung licea. The findings and the impression was discussed with the patient. I attest to the documentation by the nurse practitioner. Time with Patient: Less than 30
--- NOTE | 2021-03-22 12:33 | PN ---
PROGRESS NOTE DATE OF SERVICE: 03/22/2021 REASON FOR FOLLOWUP: Fever and bacteremia. INTERVAL HISTORY: The patient did spike another fever last night of 102 degrees Fahrenheit. The patient is afebrile this morning. The patient is more awake and alert. The patient denies having any chest pain or shortness of breath or cough. No nausea, no vomiting. No abdominal pain. Some pain to the left ankle area, but he mentioned it is getting better. PHYSICAL EXAMINATION: Blood pressure 127/56, pulse of 118, temperature 98.4. He is 97% on room air. GENERAL DESCRIPTION: General description is a middle-aged male lying in bed in no distress. RESPIRATORY SYSTEM: Unlabored breathing. Clear to auscultation anteriorly. HEART: S1, S2. Regular rate and rhythm. ABDOMEN: Soft. No tenderness. Left ankle did have some swelling. No significant redness or drainage. LABS: The patient did have a CT of the left leg; some soft tissue swelling, chronic changes. DIAGNOSTIC IMPRESSION AND PLAN: Patient with a persistent fever in this patient who did have extensive workup, including lumbar spine MRI, brain MRI, lower extremity CT and x-rays which have not been suggestive of any pneumonia in this patient who does have a history of . We will obtain a CT of abdomen and pelvis with contrast to rule out any intraabdominal pathology. Continue with current antibiotics and monitor his clinical course closely. Continue with supportive care. JASONL / PALMERN: [id number] /
--- NOTE | 2021-03-22 12:42 | P.PN ---
<Ivan Maharaj - Last Filed: 03/22/21 12:28> Subjective Progress Note Date: 03/22/21 Hospital course: Patient is a 55-year-old male with a past medical history of EtOH abuse. He p resented to the hospital on 03/14/21 after being found delirious and confused by his neighbor at home. Patient was reportedly found laying on the floor covered in his own feces with empty alcohol bottles surrounding him. Patient presented to the hospital with multiple bruises and abrasions in different stages of healing. UDS positive for marijuana and benzodiazepines. EtOH level was less than 10. Patient was initially found to have hypernatremia with sodium of 152, hyponatremia with potassium of 3.2, hyperchloremia with chloride of 114 and elevated creatinine kinase of 999. He was admitted for acute metabolic encephalopathy with hallucinations and EtOH withdrawal, rhabdomyolysis, and se psis without sepsis shock. Patient has underwent multiple labs and imaging see below. Currently admitted under our services with consultation to pulmonology, infectious disease, neurology, and orthopedic surgery. Labs and imaging: Initial blood culture showing no results after 96 hours, CSF fluid negative wound culture right knee negatives wound culture left ankle preliminary results negative, 1 out of 2 blood culture results repeated on 03/19/21 positive for Staphylococcus epidermidis, possibly contaminated, and repeat blood culture drawn on 03/20/21 showing no growth after 24 hours. TSH 1.770. Pro-calcitonin 50.22 and CRP of 8.1. Chest x-ray completed 03/14/21 revealed minimal subsegmental atelectasis at the right lung base without change. CT head and cervical spine completed 03/14/21 negative for acute intercranial abnormality with spondylitic changes to cervical spine with no acute fractures or abnormalities. CT facial bones without contrast showing evidence of old blowout fracture on the floor of the left bony orbit with reported displacement of 4 mm and is negative for acute fractures. X-ray right elbow olecranon process spur formation with posterior soft tissue swelling negative for acute fractures. Bilateral carotid Dopplers negative for hemodynamically significant internal carotid artery stenosis Venous Doppler left lower extremity negative for DVT. X-ray left ankle negative for acute fracture. MRI brain with and without contrast showing mild atrophy with mild subependymal white matter increased signal around the lateral ventricles measuring up to 5 mm in thickness no evidence of cortical infarct. MRI lumbar spine with and without contrast showing no evidence of discitis, no significant disc space narrowing or acute fractures. Multilevel mild facet arthroplasty and mild lateral recess stenosis with multilevel mild posterior disc bulging without spinal stenosis. CT left lower extremity showing chronic changes with soft tissue swelling and calcaneal spurring, negative for acute fracture. Physical exam: 03/22/21: Patient seen and fully evaluated at the bedside this morning. Patient alert to self only upon examination, he was confused to time, place, and s ituation. Even with direction, patient was unable to state that he was in the hospital. He continues to be febrile with high temperature over the past 24 hours of 102.0F. He remains on vancomycin and cefepime. Infectious disease, pulmonary, neurology, and orthopedic surgery following. Pro-calcitonin 50.22 and CRP of 8.1. Vital signs reviewed and stable. General: Nontoxic, no distress and appears stated age. Derm: Skin warm and dry, normal coloration for ethnicity. Multiple bruises and abrasions hovering upper and lower extremities in different stages of healing. Head: Atraumatic, normocephalic and symmetric. Eyes: No lid lag, and anicteric sclera. Slight swelling and bruising surrounding left orbital region. Mouth: No lip lesions, mucus membranes moist Cardiovascular: Regular rhythm and tachycardic rate, no murmur, positive posterior tibial pulses bilaterally, and cap refill < 2 seconds. Lungs: Respirations even, regular, and unlabored on room air. Lungs CTA bilaterally, no rhonchi, no rales, no wheezing, and no accessory muscle usage. GI/: soft, nontender to palpation, no guarding, no appreciable organomegaly. Rendon catheter in place. Ext: ROM intact. No gross muscle atrophy, no edema, no contractures Neuro/Psych: Speech clear, face symmetrical and CN II-XII grossly intact. Patient able to follow limited commands, but remains alert to self only. Pupils equal and round. Assessment and Plan of Care: Alcohol abuse with alcohol withdrawal syndrome Delirium tremens Rhabdomyolysis Acute Metabolic Encephalopathy with hallucinations -Benzodiazepines per CIWA scale -IV fluid hydration, Thiamine 100 mg twice daily -Seizure precautions, Fall precautions -Computed tomography scan of the head showed no acute findings. -MRI of the brain was no acute finding -Consulted neurology and psychiatry for further evaluation -EEG was abnormal with generalized cerebral dysfunction and evidence of toxic metabolic encephalopathy -Treatment of underlying infectious process, continue IV antibiotics cefepime and vancomycin pending further recommendations by infectious disease Acute metabolic encephalopathy Sepsis without septic shock Fever, unclear etiology Concerns about meningitis, ruled out Bacteremia, contamination with staph epidermidis Concerns of RLL Aspiration Pneumonia, questionable -Initial blood culture showing no results after 96 hours, CSF fluid negative wound culture right knee negatives wound culture left ankle preliminary results negative, 1 out of 2 blood culture results repeated on 03/19/21 positive for Staphylococcus epidermidis, possibly contaminated, and repeat blood culture drawn on 03/20/21 showing no growth after 24 hours. -TSH 1.770. -Pro-calcitonin 50.22 and CRP of 8.1. -Started on broad spectrum antibiotic with vancomycin, ceftriaxone, and acyclovir for suspected meningitis on presentation. Antibiotic is been adjusted by infectious disease currently on IV cefepime and vancomycin. -CSF fluid not consistent with bacterial meningitis. -HSV PCR negative -MRI of the lumbar spine with no evidence of discitis or prevertebral abscess -Blood gas showed no evidence of acute CO2 narcosis -Chest x-ray with questionable pneumonia -Change oral thiamine to IV thiamine 100 mg twice daily. -Treatment of underlying infectious process, continue IV antibiotics cefepime and vancomycin pending further recommendations by infectious disease Poor living condition Recurrent episodes of hospital admission for alcohol abuse Major life stressors with possible major depression -We will reconsult psychiatry when mentation improves -hot stick worker consultation Macrocytic anemia mild, Most likely secondary to alcohol abuse No reported GI bleeding -Multiple skin abrasions and bruising in multiple stages of healing -Left eye bruising -No acute fractures identified Hypernatremia, resolved status post administration of IV fluids. CODE STATUS: Full code DVT prophylaxis: SCDs Discussed with: Patient and RN Anticipated discharge date: Clinical course to determine Anticipated discharge place: Home A total of 45 minutes was spent on the care of this complex patient more than 50% of the time was spent in counseling and care coordination. Objective - Vital Signs Vital signs: Vital Signs Temp 98.8 F 03/22/21 08:14 Pulse 109 H 03/22/21 08:14 Resp 18 03/22/21 08:14 BP 132/79 03/22/21 08:14 Pulse Ox 97 03/22/21 08:14 Intake & Output 03/21/21 03/22/21 03/22/21 18:59 06:59 18:59 Intake Total 920 Output Total 800 1390 Balance 120 -1390 Weight 89 kg 94 kg Intake: Intake, IV Titration 350 Amount Cefepime 2 gm In Sodium 100 Chloride 0.9% 100 ml @ 25 mls/hr IVPB Q8HR [facility] Rx# :[id number] Vancomycin 1,500 mg In 250 Sodium Chloride 0.9% 250 ml @ 125 mls/hr IVPB Q8H [facility] Rx#:[id number] Oral 570 Output: Urine 800 1390 Other: Voiding Method Indwelling Catheter Indwelling Catheter Indwelling Catheter # Bowel Movements 1 - Labs CBC & Chem 7: 03/22/21 08:02 03/22/21 08:02 Labs: Abnormal Lab Results - Last 24 Hours (Table) 03/21/21 03/21/21 03/21/21 Range/Units 06:17 12:05 16:38 WBC (3.8-10.6) k/uL RBC (4.30-5.90) m/uL Hgb (13.0-17.5) gm/dL Hct (39.0-53.0) % Neutrophils # (1.3-7.7) k/uL Potassium (3.5-5.1) mmol/L Chloride (98-107) mmol/L BUN (9-20) mg/dL Creatinine (0.66-1.25) mg/dL POC Glucose (mg/dL) 115 H 100 H (75-99) mg/dL Calcium (8.4-10.2) mg/dL Procalcitonin 50.22 H (0.02-0.09) ng/mL 03/22/21 03/22/21 03/22/21 Range/Units 00:57 08:02 08:02 WBC 11.5 H (3.8-10.6) k/uL RBC 3.56 L (4.30-5.90) m/uL Hgb 12.1 L (13.0-17.5) gm/dL Hct 35.4 L (39.0-53.0) % Neutrophils # 9.2 H (1.3-7.7) k/uL Potassium 3.1 L (3.5-5.1) mmol/L Chloride 109 H (98-107) mmol/L BUN 4 L (9-20) mg/dL Creatinine 0.34 L (0.66-1.25) mg/dL POC Glucose (mg/dL) 106 H (75-99) mg/dL Calcium 8.3 L (8.4-10.2) mg/dL Procalcitonin (0.02-0.09) ng/mL 03/22/21 Range/Units 08:02 WBC (3.8-10.6) k/uL RBC (4.30-5.90) m/uL Hgb (13.0-17.5) gm/dL Hct (39.0-53.0) % Neutrophils # (1.3-7.7) k/uL Potassium (3.5-5.1) mmol/L Chloride (98-107) mmol/L BUN (9-20) mg/dL Creatinine 0.36 L (0.66-1.25) mg/dL POC Glucose (mg/dL) (75-99) mg/dL Calcium (8.4-10.2) mg/dL Procalcitonin (0.02-0.09) ng/mL Microbiology - Last 24 Hours (Table) 03/20/21 17:40 Blood Culture - Preliminary Blood No Growth after 24 hours 03/19/21 14:59 Blood Culture Gram Stain - Preliminary Blood Blood Culture - Preliminary Staphylococcus epidermidis 03/19/21 11:55 Anaerobic Culture - Preliminary Ankle - Left 03/18/21 19:00 Anaerobic Culture - Preliminary Knee - Right 03/19/21 11:55 Gram Stain - Final Ankle - Left Wound Culture - Final 03/17/21 09:05 Blood Culture - Preliminary Blood No Growth after 96 hours 03/18/21 11:35 CSF Gram Stain - Preliminary Cerebral Spinal Fluid CSF Culture - Preliminary <Melva Cline - Last Filed: 03/22/21 19:48> Subjective Patient seen and examined independently. Patient was also seen by Ivan Maharaj NP and case was discussed. I am in agreement with subjective, physical exam, assessment and plan as written above and amended below. Excoriation is pleasantly confused, he is picking at his skin and unable to sit still. He is thinking she is in [place]. He denies any pain, nausea, or vomiting. General: non toxic, no distress, appears at stated age Derm: Multiple excoriations and lacerations bilateral upper and lower extremities, multiple bruises in various stages of healing throughout his body warm, dry Head: atraumatic, normocephalic, symmetric Eyes: EOMI, no lid lag, anicteric sclera Mouth: no lip lesion, mucus membranes moist Cardiovascular: S1S2 reg, no murmur, positive posterior tibial pulse bilateral, Lungs: CTA bilateral, no rhonchi, no rales , no accessory muscle use Abdominal: soft, nontender to palpation, no guarding, no appreciable organomegaly Ext: no gross muscle atrophy, no edema, no contractures Neuro: CN II-XI grossly intact, no focal neuro deficits, faint tremor noted bilaterally Psych: Alert and oriented to person Objective - Vital Signs Vital signs: Vital Signs Temp 98.6 F 03/22/21 15:56 Pulse 115 H 03/22/21 15:56 Resp 18 03/22/21 15:56 BP 135/83 03/22/21 15:56 Pulse Ox 97 03/22/21 15:56 Intake & Output 03/22/21 03/22/21 03/23/21 06:59 18:59 06:59 Intake Total 240 Output Total 1390 1300 Balance -1390 -1060 Weight 94 kg Intake: Oral 240 Output: Urine 1390 1300 Uretheral (Rendon) 700 Other: Voiding Method Indwelling Catheter Indwelling Catheter # Bowel Movements 1 - Labs CBC & Chem 7: 03/22/21 08:02 03/22/21 08:02 Labs: Abnormal Lab Results - Last 24 Hours (Table) 03/22/21 03/22/21 03/22/21 Range/Units 00:57 08:02 08:02 WBC 11.5 H (3.8-10.6) k/uL RBC 3.56 L (4.30-5.90) m/uL Hgb 12.1 L (13.0-17.5) gm/dL Hct 35.4 L (39.0-53.0) % Neutrophils # 9.2 H (1.3-7.7) k/uL Potassium 3.1 L (3.5-5.1) mmol/L Chloride 109 H (98-107) mmol/L BUN 4 L (9-20) mg/dL Creatinine 0.34 L (0.66-1.25) mg/dL POC Glucose (mg/dL) 106 H (75-99) mg/dL Calcium 8.3 L (8.4-10.2) mg/dL 03/22/21 Range/Units 08:02 WBC (3.8-10.6) k/uL RBC (4.30-5.90) m/uL Hgb (13.0-17.5) gm/dL Hct (39.0-53.0) % Neutrophils # (1.3-7.7) k/uL Potassium (3.5-5.1) mmol/L Chloride (98-107) mmol/L BUN (9-20) mg/dL Creatinine 0.36 L (0.66-1.25) mg/dL POC Glucose (mg/dL) (75-99) mg/dL Calcium (8.4-10.2) mg/dL Microbiology - Last 24 Hours (Table) 03/18/21 19:00 Gram Stain - Final Knee - Right Wound Culture - Final 03/18/21 11:35 CSF Gram Stain - Final Cerebral Spinal Fluid CSF Culture - Final 03/17/21 09:05 Blood Culture - Preliminary Blood No Growth after 120 hours 03/20/21 17:40 Blood Culture - Preliminary Blood No Growth after 24 hours 03/19/21 14:59 Blood Culture Gram Stain - Preliminary Blood Blood Culture - Preliminary Staphylococcus epidermidis
--- NOTE | 2021-03-22 12:58 | P.PN ---
Subjective Progress Note Date: 03/22/21 Principal diagnosis: Left ankle pain, cellulitis Patient was seen at bedside this morning on cardiac floor. Patient is able to respond to verbal questions today. Patient is lying semirecumbent in bed. When patient was asked to bend left ankle he moans in pain. Patient denies chest pain, fever, shortness breath, nausea, vomiting, change in vision, loss of bowel/bladder control. Objective - Vital Signs Vital signs: Vital Signs Temp 98.4 F 03/22/21 11:40 Pulse 118 H 03/22/21 11:40 Resp 18 03/22/21 11:40 BP 127/66 03/22/21 11:40 Pulse Ox 97 03/22/21 11:40 Intake & Output 03/21/21 03/22/21 03/22/21 18:59 06:59 18:59 Intake Total 920 Output Total 800 1390 700 Balance 120 -1390 -700 Weight 89 kg 94 kg Intake: Intake, IV Titration 350 Amount Cefepime 2 gm In Sodium 100 Chloride 0.9% 100 ml @ 25 mls/hr IVPB Q8HR [facility] Rx# :[id number] Vancomycin 1,500 mg In 250 Sodium Chloride 0.9% 250 ml @ 125 mls/hr IVPB Q8H [facility] Rx#:[id number] Oral 570 Output: Urine 800 1390 700 Uretheral (Rendon) 700 Other: Voiding Method Indwelling Catheter Indwelling Catheter Indwelling Catheter # Bowel Movements 1 - Exam left ankle: Left ankle examined at bedside this morning. When left ankle is dorsiflexed patient moans in pain. The area of erythema seems to be less compared to yesterday around the ankle. There is still some swelling around the foot and ankle. DP pulses intact. Cap refill under 3 seconds. - Labs CBC & Chem 7: 03/22/21 08:02 03/22/21 08:02 Labs: Abnormal Lab Results - Last 24 Hours (Table) 03/21/21 03/21/21 03/22/21 Range/Units 06:17 16:38 00:57 WBC (3.8-10.6) k/uL RBC (4.30-5.90) m/uL Hgb (13.0-17.5) gm/dL Hct (39.0-53.0) % Neutrophils # (1.3-7.7) k/uL Potassium (3.5-5.1) mmol/L Chloride (98-107) mmol/L BUN (9-20) mg/dL Creatinine (0.66-1.25) mg/dL POC Glucose (mg/dL) 100 H 106 H (75-99) mg/dL Calcium (8.4-10.2) mg/dL Procalcitonin 50.22 H (0.02-0.09) ng/mL 03/22/21 03/22/21 03/22/21 Range/Units 08:02 08:02 08:02 WBC 11.5 H (3.8-10.6) k/uL RBC 3.56 L (4.30-5.90) m/uL Hgb 12.1 L (13.0-17.5) gm/dL Hct 35.4 L (39.0-53.0) % Neutrophils # 9.2 H (1.3-7.7) k/uL Potassium 3.1 L (3.5-5.1) mmol/L Chloride 109 H (98-107) mmol/L BUN 4 L (9-20) mg/dL Creatinine 0.34 L 0.36 L (0.66-1.25) mg/dL POC Glucose (mg/dL) (75-99) mg/dL Calcium 8.3 L (8.4-10.2) mg/dL Procalcitonin (0.02-0.09) ng/mL Microbiology - Last 24 Hours (Table) 03/18/21 19:00 Gram Stain - Final Knee - Right Wound Culture - Final 03/18/21 11:35 CSF Gram Stain - Final Cerebral Spinal Fluid CSF Culture - Final 03/17/21 09:05 Blood Culture - Preliminary Blood No Growth after 120 hours 03/20/21 17:40 Blood Culture - Preliminary Blood No Growth after 24 hours 03/19/21 14:59 Blood Culture Gram Stain - Preliminary Blood Blood Culture - Preliminary Staphylococcus epidermidis 03/19/21 11:55 Anaerobic Culture - Preliminary Ankle - Left 03/18/21 19:00 Anaerobic Culture - Preliminary Knee - Right 03/19/21 11:55 Gram Stain - Final Ankle - Left Wound Culture - Final Assessment and Plan Assessment: Left ankle pain, cellulitis Plan: 1. Left ankle pain, cellulitis -aspiration was performed Sunday01/17/2021 the left ankle where 6 mL of serous joint fluid was aspirated and sent to lab for culture, Gram stain, crystals, aerobic and anaerobic cultures. Final results for Gram Stain and aerobic cultures of left ankle negative.anaerobic culture negative to this point. CT lower extremity negative and shows some soft tissue swelling and calcaneal spurring. No urgent surgical intervention planned at this time from orthopedic standpoint. Patient stable from an orthopedic standpoint. Orthopedics is signing off at this time. Please do not hesitate to contact us if you have any further questions 2. Appreciate medical management 3. Pain management - stable at this time 4. GI prophylaxis/DVT prophylaxis - Protonix; Mechanical - SCDs 5. PT/OT - weightbearing as tolerated with assistance 6. Appreciate consult Time with Patient: Less than 30
[2021-03-22] MEDS: IOPAMIDOL CONTRAST (ORAL USE) VIAL PO PRN ×2 (14:27→15:24)
--- NOTE | 2021-03-22 17:02 | CT ---
EXAMINATION TYPE: CT abdomen pelvis w con DATE OF EXAM: 03/22/2021 COMPARISON: 02/05/2019 HISTORY: Fever. CT DLP: 2417.6 mGycm Automated exposure control for dose reduction was used. CONTRAST: Performed with IV Contrast, patient injected with 100ml mL of Isovue 300. There is bilateral pleural effusions. Heart size is fairly normal. There is no pericardial effusion. There is some fatty infiltration of the liver. There is some mild atelectasis at the left and right lung bases. Spleen is intact. There is no pancreatic mass. Gallbladder is somewhat contracted. Stomach is intact. The bile ducts are not dilated. There is no adrenal mass. Kidneys have normal size and contour. There is satisfactory contrast opacif ication of the kidneys. There is no hydronephrosis. Delayed images show normal renal excretion. There is no retroperitoneal adenopathy. There is Rendon catheter in the urinary bladder. Bladder is empty. There is no inguinal hernia. There is no evidence of a pelvic mass. There is oral contrast material d own to the rectum. There is no evidence of bowel obstruction. There is contrast in the appendix which appears normal. There is no mesenteric edema. There is no ascites or free air. There is some subcutaneous edema aroun d the entire abdomen. The lumbar vertebra have normal alignment. There is no compression fracture. Posterior elements are i ntact. The bony pelvis is intact. There is some sclerosis in the left femoral head consistent with so me chronic avascular necrosis. IMPRESSION: Fatty infiltration of the liver. Pleural effusions and basilar atelectasis. Elevated right diaphragm could relate to diaphragm paralysis. Subcutaneous edema around the abdomen. Congestive heart failure is possible. These abnormalities appear new compared to old exam. Avascular necrosis left femoral head unchanged. No acute abnormality within the abdomen pelvis.
--- NOTE | 2021-03-22 17:16 | P.PN ---
Subjective Progress Note Date: 03/22/21 I am seeing the patient at bedside and is accompanied by his friend (Winifred). Who stated that patient does not have history of IV drug use but does have alcohol use. She seen the patient last 1 month prior to the incident. Per the nurse he has multiple falls. She feels the patient currently is doing better compared to his initial presentation. He denies of headaches, denies any new neck pain or lower back pain. He was inconsistent about having old neck pain or lower back pain but denies any new pain. In the last 24 to 48 hours, patient has been spiking fever with Tmax of 102F on 03/21/21 at 23:32. ESR 64 on 0 828 and the repeated ESR 77 on 03/21/2021. Objective - Vital Signs Vital signs: Vital Signs Temp 98.6 F 03/22/21 15:56 Pulse 115 H 03/22/21 15:56 Resp 18 03/22/21 15:56 BP 135/83 03/22/21 15:56 Pulse Ox 97 03/22/21 15:56 Intake & Output 03/21/21 03/22/21 03/22/21 18:59 06:59 18:59 Intake Total 920 Output Total 800 1390 1300 Balance 120 -1390 -1300 Weight 89 kg 94 kg Intake: Intake, IV Titration 350 Amount Cefepime 2 gm In Sodium 100 Chloride 0.9% 100 ml @ 25 mls/hr IVPB Q8HR [facility] Rx# :[id number] Vancomycin 1,500 mg In 250 Sodium Chloride 0.9% 250 ml @ 125 mls/hr IVPB Q8H [facility] Rx#:[id number] Oral 570 Output: Urine 800 1390 1300 Uretheral (Rendon) 700 Other: Voiding Method Indwelling Catheter Indwelling Catheter Indwelling Catheter # Bowel Movements 1 - Exam GENERAL: The patient is lying in bed and is moderate acute distress. INTEGUMENTARY: Multiple skin abrasion. MUSCULOSKELETAL: Pain with flexion of the right knee. Has bruises of both knee NEUROLOGICAL: Higher mental function: The patient is awake, alert, oriented to self. He was able to state the year correctly and regarding the month he repeated it was 2020. He stated he was in [place]. Patient is able to name objects correctly (pen, watch). He seems somewhat slow in responding. Patient is following simple commands. No aphasia from limited language. No neglect. Cranial nerves: The pupils are round, equal and reactive to light. Visual licea are full to confrontation throughout. Extraocular movement is tracking to the right and left and no appreciable nystagmus. Has echymosis around the eye (mostly upper). The facial strength is normal throughout. No dysarthria is noted. Motor: The strength is moving upper extremities above gravity without focality and seems about 5- while the lower are limited because of pain. The left lower extremity he was able to bend the knee while the right he was in severe pain attempting to bend the knee. Had antigravity of bilateral ankles. Normal tone and bulk in upper and hard to assess tone in lower because of his pain.. Cerebellum: Normal finger to nose bilaterally Sensation: Sensation is normal to touch throughout. Reflexes (right/left): Brachioradialis are 3+, biceps are 2-3+ bilaterally, triceps are 2+. Lowers are to assess because of pain. Plantars are mute bilaterally. WORK-UP: * CPK is 999 on 03/14 but 217 on 03/16--improved. * B12 582 normal, however at MMA is elevated 0.46 (normal <0.40). This may indicate intracellular deficiency of B12. Patient's folate 5.7, TSH 1.77, RPR nonreactive. * Low Vitamin B6 3 (normal is 5-50). * Ammonia level 12 (normal) * ESR 64 on 0 828 and the repeated ESR 77 on 03/21/2021. * MRI of the brain on 03/18/21 revealed mild atrophy. Mild subependymal white matter increased signal around the lateral ventricles measuring up to 5 mm in thickness. No evidence of cortical infarct. * MRI of the lumbar spine with and without contrast 03/19/2021 revealed no evidence of discitis. No significant disc space narrowing. No fracture. Multilevel mild facet arthropathy and mild lateral recess stenosis. Multilevel mild posterior disc bulging without spinal stenosis. * CerebroSpinal fluid examination revealed glucose 64 (40-70), proteins 226 (12- 60), total WBC count in CSF 18, out of its 15% monocytes and 85% p olynuclear's. CSF RBC 5175, due to traumatic tap. * Patient's spinal fluid was traumatic because patient was not cooperating. CSF showsCSF shows very mild leukocytosis ( about 2-3 cells above normal after correction for traumatic tap), and very elevated proteins. Cultures negative. HSV-1 and 2 PCR in the CSF are negative. Viral test are negative. Infectious disease following. Acyclovir has been discontinued. Antibiotics have been tapered to control cryptogenic infection. Currently on cefepime 2gm q 8hr. Patient had undergone aspiration of right knee and left ankle, both of which have been negative for any growth. No crystals seen in the sinonasal fluid. * Routine EEG on 03/17/21 was reported as abnormal due to background slowing of moderate to severe degree. This is suggestive of generalized cerebral dysfunction, as can be seen with toxic metabolic encephalopathy or due to diffuse structural brain abnormality. No epileptiform activity was seen. * Carotid Doppler was technically difficult due to patient's inability to hold still. No hemodynamically significant ICA stenosis identified on either side. Antegrade flow in both vertebral arteries. * CT of facial bone on 03/14/2021 is reported as there is evidence of old bone out fracture of the floor of the left bony orbits. No acute fracture seen. * Left Lower extremity CT 03/22/2021: is reported as chronic changes as noted. Soft tissue swelling. Calcaneal is spurring. - Labs CBC & Chem 7: 03/22/21 08:02 03/22/21 08:02 Labs: Abnormal Lab Results - Last 24 Hours (Table) 03/21/21 03/21/21 03/22/21 Range/Units 06:17 16:38 00:57 WBC (3.8-10.6) k/uL RBC (4.30-5.90) m/uL Hgb (13.0-17.5) gm/dL Hct (39.0-53.0) % Neutrophils # (1.3-7.7) k/uL Potassium (3.5-5.1) mmol/L Chloride (98-107) mmol/L BUN (9-20) mg/dL Creatinine (0.66-1.25) mg/dL POC Glucose (mg/dL) 100 H 106 H (75-99) mg/dL Calcium (8.4-10.2) mg/dL Procalcitonin 50.22 H (0.02-0.09) ng/mL 03/22/21 03/22/21 03/22/21 Range/Units 08:02 08:02 08:02 WBC 11.5 H (3.8-10.6) k/uL RBC 3.56 L (4.30-5.90) m/uL Hgb 12.1 L (13.0-17.5) gm/dL Hct 35.4 L (39.0-53.0) % Neutrophils # 9.2 H (1.3-7.7) k/uL Potassium 3.1 L (3.5-5.1) mmol/L Chloride 109 H (98-107) mmol/L BUN 4 L (9-20) mg/dL Creatinine 0.34 L 0.36 L (0.66-1.25) mg/dL POC Glucose (mg/dL) (75-99) mg/dL Calcium 8.3 L (8.4-10.2) mg/dL Procalcitonin (0.02-0.09) ng/mL Microbiology - Last 24 Hours (Table) 03/18/21 19:00 Gram Stain - Final Knee - Right Wound Culture - Final 03/18/21 11:35 CSF Gram Stain - Final Cerebral Spinal Fluid CSF Culture - Final 03/17/21 09:05 Blood Culture - Preliminary Blood No Growth after 120 hours 03/20/21 17:40 Blood Culture - Preliminary Blood No Growth after 24 hours 03/19/21 14:59 Blood Culture Gram Stain - Preliminary Blood Blood Culture - Preliminary Staphylococcus epidermidis 03/19/21 11:55 Anaerobic Culture - Preliminary Ankle - Left 03/18/21 19:00 Anaerobic Culture - Preliminary Knee - Right Assessment and Plan Assessment: * 55-year-old male with history of alcoholism, was found at laying with fecal matter with multiple bruises, scratches and pressure sores over dependent areas, indicating patient has been on the floor for fairly long period of time. Last period of contact with his friends was on Sunday, 3 days prior to arrival. * Fevers of unknown etiology. MRI Brain is negative. No definitive evidence of meningitis/encephalitis based upon CSF results. CSF culture are negative. HSV PCR negative and viral are negative. * Altered mental status. Rule out infectious process (unknown source yet)--mentation is slowy improving. * Low Vitamin B6 3 (normal is 5-50). * Multiple skin abrasions including left eye bruising * History of multiple falls * Hypertension * History of alcoholism * History of marijuana use. Plan: I will get repeat MRI Brain and will get MRI cervical spine w/ and w/o especially since patient since has altered mental status, has spiking of fevers and has hyperreflexia of uppers. Currently on cefepime 2gm q 8hr and will defer antibiotic management to the primary team. Continue folic acid 1mg daily and Vitamin B12 1000mcg daily. Continue Thiamine daily. Continue Vitamin B6 50mg bid and within 2-3month recommend getting repeat levels again and modify medication appropriately if needed. Infection disease is on board. Orthopedic team is on board. Will defer the rest of medical management to the primary team. The plan is discussed with the patient's nurse. Osman Malone MD Neuro-Hospitalist Time with Patient: Greater than 30
[2021-03-22 18:32] LABS: Glucose,Whole Blood 96 mg/dL (75-99)
[2021-03-22] MEDS: THIAMINE 100 MG in SODIUM CHLORIDE 0.9% 50 ML IVPB SCH (19:54)
[2021-03-23 01:14] LABS: Glucose,Whole Blood 101 mg/dL (75-99)
[2021-03-23] MEDS: PANTOPRAZOLE 40 MG TABLET PO SCH (05:59)
[2021-03-23] MEDS: VANCOMYCIN 1,500 MG in SODIUM CHLORIDE 0.9% 250 ML IVPB SCH ×3 (05:59→21:05)
[2021-03-23 06:10] LABS: Glucose,Whole Blood 91 mg/dL (75-99)
[2021-03-23 07:27] LABS: HGB 11.7 gm/dL (13.0-17.5); Hypochromasia Slight; MCHC 33.3 g/dL (31.0-37.0); MCV 102.2 fL (80.0-100.0); Macrocytosis Slight; Platelet Count 332 k/uL (150-450); RBC 3.43 m/uL (4.30-5.90); RDW 15.3 % (11.5-15.5); WBC 15.9 k/uL (3.8-10.6)
[2021-03-23 07:49] LABS: African American GFR (CKD) >90 (>60 ml/min/1.73 sqM); Anion Gap 11 mmol/L; Blood Urea Nitrogen 5 mg/dL (9-20); Carbon Dioxide 20 mmol/L (22-30); Chloride 107 mmol/L (98-107); Glucose 88 mg/dL (74-99); Magnesium 1.8 mg/dL (1.6-2.3); Non-African American GFR(CKD) >90 (>60 ml/min/1.73 sqM); Sodium 138 mmol/L (137-145)
[2021-03-23 07:53] LABS: Potassium 3.4 mmol/L (3.5-5.1)
[2021-03-23] MEDS: amLODIPine 5 MG TAB PO SCH ×2 (07:54→21:06)
[2021-03-23] MEDS: PYRIDOXINE 50 MG TAB PO SCH ×2 (07:54→21:05)
[2021-03-23] MEDS: FOLIC ACID 1 MG TAB PO SCH (07:54)
[2021-03-23] MEDS: lisinopriL 10 MG TAB PO SCH (07:55)
[2021-03-23] MEDS: CYANOCOBALAMIN 1,000 MCG/ML 1 ML VIAL IM SCH (07:55)
[2021-03-23] MEDS: CEFEPIME 2 GM in SODIUM CHLORIDE 0.9% 100 ML IVPB SCH (07:55)
--- NOTE | 2021-03-23 08:01 | P.PN ---
Subjective Progress Note Date: 03/23/21 Patient seen and examined this morning. He is slightly confused his he states he needs to get out of bed and take his ALLERGY pills. He states that his ankle feels much better however on the left side but he is still having pain in it. He denies any fevers or chills overnight. Objective - Vital Signs Vital signs: Vital Signs Temp 99.1 F 03/23/21 07:53 Pulse 104 H 03/23/21 07:53 Resp 16 03/23/21 07:53 BP 138/83 03/23/21 07:53 Pulse Ox 98 03/23/21 07:53 Intake & Output 03/22/21 03/23/21 03/23/21 18:59 06:59 18:59 Intake Total 240 Output Total 1300 1380 Balance -1060 -1380 Weight 106 kg Intake: Oral 240 Output: Urine 1300 1380 Uretheral (Rendon) 700 Other: Voiding Method Indwelling Catheter Indwelling Catheter # Bowel Movements 1 - Exam On exam, the erythema of the lateral left ankle continues to improve. card tender to touch of the skin lending to possible cellulitis. He has bruising about the foot and dorsal foot. He has ttp of the dorsal foot over most aspects, not entirely localized at this time. He does have pain with ankle motion passively, but states it is in the top of the foot. Actively he is able to fire EHL/FHL without any issues. SILT L2-S1. 2/4 DP/PT pulses. Compartment soft and compressive. - Labs CBC & Chem 7: 03/23/21 06:41 03/23/21 06:41 Labs: Abnormal Lab Results - Last 24 Hours (Table) 03/22/21 03/22/21 03/22/21 Range/Units 08:02 08:02 08:02 WBC 11.5 H (3.8-10.6) k/uL RBC 3.56 L (4.30-5.90) m/uL Hgb 12.1 L (13.0-17.5) gm/dL Hct 35.4 L (39.0-53.0) % MCV (80.0-100.0) fL Neutrophils # 9.2 H (1.3-7.7) k/uL Potassium 3.1 L (3.5-5.1) mmol/L Chloride 109 H (98-107) mmol/L Carbon Dioxide (22-30) mmol/L BUN 4 L (9-20) mg/dL Creatinine 0.34 L 0.36 L (0.66-1.25) mg/dL POC Glucose (mg/dL) (75-99) mg/dL Calcium 8.3 L (8.4-10.2) mg/dL 03/23/21 03/23/21 03/23/21 Range/Units 01:13 06:41 06:41 WBC 15.9 H (3.8-10.6) k/uL RBC 3.43 L (4.30-5.90) m/uL Hgb 11.7 L (13.0-17.5) gm/dL Hct 35.0 L (39.0-53.0) % MCV 102.2 H (80.0-100.0) fL Neutrophils # (1.3-7.7) k/uL Potassium 3.4 L (3.5-5.1) mmol/L Chloride (98-107) mmol/L Carbon Dioxide 20 L (22-30) mmol/L BUN 5 L (9-20) mg/dL Creatinine 0.30 L (0.66-1.25) mg/dL POC Glucose (mg/dL) 101 H (75-99) mg/dL Calcium 8.0 L (8.4-10.2) mg/dL Microbiology - Last 24 Hours (Table) 03/20/21 17:40 Blood Culture - Preliminary Blood No Growth after 48 hours 03/18/21 19:00 Gram Stain - Final Knee - Right Wound Culture - Final 03/18/21 11:35 CSF Gram Stain - Final Cerebral Spinal Fluid CSF Culture - Final 03/17/21 09:05 Blood Culture - Preliminary Blood No Growth after 120 hours - Imaging and Cardiology CT of the ankle and foot are reviewed no acute fracture or dislocation is noted soft tissue swelling is noted about the ankle osteoarthritic changes however no acute findings. Assessment and Plan Assessment: 55-year-old male acute metabolic encephalopathy Left ankle pain, cellulitis rule out septic arthritis Right ankle pain Multiple superficial abrasions Status post fall from standing with likely blunt head trauma multiple medical comorbidities EtOH abuse Plan: -Appreciate publicity consultant and team management. -Primary medical management -Plan to aspirate left ankle for synovial cultures as well as fluid analysis to rule out septic arthritis. This appears to be more of a cellulitic reaction in the area however with the extremely painful passive range of motion would like to rule this out. -MRI of L spine neg for infective process -CT negative for fracture -Will get fracture boot for pt to keep in dorsiflexion and to immobilize and help with ambulation -Recommend Graves boots or dorsiflexion boots while in bed to prevent contracture -Trend labs -ID for antibiotic management -Activity: Weightbearing as tolerated in fracture boot -Pain control: [Adequate at this time] -Meds: [reviewed] -GI ppx: senna, Miralax -DVT PPX: [OK to restart Heparin tonight] -Hygiene: Maintaining good hygiene -Log rolled every 2 hours -Encourage IS 10x/hr -No urgent or emergent orthopedic surgical intervention at this time -Dispo: [Pending]
[2021-03-23] MEDS: THIAMINE 100 MG in SODIUM CHLORIDE 0.9% 50 ML IVPB SCH ×2 (08:26→21:05)
[2021-03-23] MEDS ORDERED: POTASSIUM CHLORIDE 10 MEQ in WATER FOR INJECTION 1 100ML.BAG IVPB SCH (09:00)
[2021-03-23] MEDS ORDERED: POTASSIUM CHLORIDE ER 20 MEQ TAB.ER PO STA (09:07)
--- NOTE | 2021-03-23 10:51 | P.PN ---
<Ivan Maharaj - Last Filed: 03/23/21 12:16> Subjective Progress Note Date: 03/23/21 Hospital course: Patient is a 55-year-old male with a past medical history of EtOH abuse. He p resented to the hospital on 03/14/21 after being found delirious and confused by his neighbor at home. Patient was reportedly found laying on the floor covered in his own feces with empty alcohol bottles surrounding him. Patient presented to the hospital with multiple bruises and abrasions in different stages of healing. UDS positive for marijuana and benzodiazepines. EtOH level was less than 10. Patient was initially found to have hypernatremia with sodium of 152, hyponatremia with potassium of 3.2, hyperchloremia with chloride of 114 and elevated creatinine kinase of 999. He was admitted for acute metabolic encephalopathy with hallucinations and EtOH withdrawal, rhabdomyolysis, and se psis without sepsis shock. Patient has underwent multiple labs and imaging see below. Currently admitted under our services with consultation to pulmonology, infectious disease, neurology, and orthopedic surgery. Labs and imaging: Initial blood culture showing no results after 144 hours, CSF fluid negative wound culture right knee negatives wound culture left ankle preliminary results negative, 1 out of 2 blood culture results repeated on 03/19/21 positive for Staphylococcus epidermidis, possibly contaminated, and repeat blood culture drawn on 03/20/21 showing no growth after 24 hours. TSH 1.770. Pro-calcitonin 50.22 and CRP of 8.1. Chest x-ray completed 03/14/21 revealed minimal subsegmental atelectasis at the right lung base without change. CT head and cervical spine completed 03/14/21 negative for acute intercranial abnormality with spondylitic changes to cervical spine with no acute fractures or abnormalities. CT facial bones without contrast showing evidence of old blowout fracture on the floor of the left bony orbit with reported displacement of 4 mm and is negative for acute fractures. X-ray right elbow olecranon process spur formation with posterior soft tissue swelling negative for acute fractures. Bilateral carotid Dopplers negative for hemodynamically significant internal carotid artery stenosis Venous Doppler left lower extremity negative for DVT. X-ray left ankle negative for acute fracture. MRI brain with and without contrast showing mild atrophy with mild subependymal white matter increased signal around the lateral ventricles measuring up to 5 mm in thickness no evidence of cortical infarct. MRI lumbar spine with and without contrast showing no evidence of discitis, no significant disc space narrowing or acute fractures. Multilevel mild facet arthroplasty and mild lateral recess stenosis with multilevel mild posterior disc bulging without spinal stenosis. CT left lower extremity showing chronic changes with soft tissue swelling and calcaneal spurring, negative for acute fracture. 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 Physical exam: 03/22/21: Patient seen and fully evaluated at the bedside this morning. Patient alert to self only upon examination, he was confused to time, place, and situation. Even with direction, patient was unable to state that he was in the hospital. He continues to be febrile with high temperature over the past 24 hours of 102.0F. He remains on vancomycin and cefepime. Infectious disease, pulmonary, neurology, and orthopedic surgery following. Pro-calcitonin 50.22 and CRP of 8.1. 03/23/21: Patient was seen and fully evaluated at the bedside this morning he was sitting up on the side of the bed working with physical therapy. The patient had no difficulties sitting at the edge of the bed and was able to stand with assistance for 2 minutes prior to sitting back down. Patient reports continued pain in his lower extremities increased upon standing. He was much more alert this morning. Patient able to state full name, spell his first name and then spell it backwards, read the clock to tell us what time it was, was able to state that he was in the hospital and it is 2020. He denied having any headache, lightheadedness, dizziness, chest pain, palpitations, shortness of breath, abdominal pain, nausea, vomiting, or any other complaints at this time other than pain in his lower extremities. Morning labs reviewed in patient positive for hypokalemia with potassium of 3.4. Vital signs reviewed and stable. General: Nontoxic, no distress and appears stated age. Derm: Skin warm and dry, normal coloration for ethnicity. Multiple bruises and abrasions hovering upper and lower extremities in different stages of healing. red rash to buttocks Head: Atraumatic, normocephalic and symmetric. Eyes: No lid lag, and anicteric sclera. Slight swelling and bruising surroun ding left orbital region. Mouth: No lip lesions, mucus membranes moist Cardiovascular: Regular rhythm and tachycardic rate, no murmur, positive posterior tibial pulses bilaterally, and cap refill < 2 seconds. Lungs: Respirations even, regular, and unlabored on room air. Lungs CTA bilaterally, no rhonchi, no rales, no wheezing, and no accessory muscle usage. GI/: soft, nontender to palpation, no guarding, no appreciable organomegaly. Rendon catheter in place. Ext: ROM intact. No gross muscle atrophy, no edema, no contractures Neuro/Psych: Speech clear, face symmetrical and CN II-XII grossly intact. Patient able to follow limited commands, but remains alert to self only. Pupils equal and round. Assessment and Plan of Care: Alcohol abuse with alcohol withdrawal syndrome Delirium tremens Rhabdomyolysis Acute Metabolic Encephalopathy with hallucinations -Benzodiazepines per CIWA scale -IV fluid hydration, Thiamine 100 mg twice daily -Seizure precautions, Fall precautions -Computed tomography scan of the head showed no acute findings. -MRI of the brain was no acute finding -Consulted neurology and psychiatry for further evaluation -EEG was abnormal with generalized cerebral dysfunction and evidence of toxic metabolic encephalopathy -Treatment of underlying infectious process, continue IV antibiotics cefepime and vancomycin pending further recommendations by infectious disease Acute metabolic encephalopathy, improving Sepsis without septic shock Fever, unclear etiology Concerns about meningitis, ruled out Bacteremia, contamination with staph epidermidis Concerns of RLL Aspiration Pneumonia, questionable -Initial blood culture showing no results [id number] hours, CSF fluid negative wound culture right knee negatives wound culture left ankle preliminary results negative, 1 out of 2 blood culture results repeated on 03/19/21 positive for Staphylococcus epidermidis, possibly contaminated, and repeat blood culture drawn on 03/20/21 showing no growth after 24 hours. -TSH 1.770. -Pro-calcitonin 50.22 and CRP of 8.1. -Started on broad spectrum antibiotic with vancomycin, ceftriaxone, and acyclovir for suspected meningitis on presentation. Antibiotic is been adjusted by infectious disease currently on IV cefepime and vancomycin. -CSF fluid not consistent with bacterial meningitis. 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 -Changed oral thiamine to IV thiamine 100 mg twice daily. -Treatment of underlying infectious process, continue IV antibiotics cefepime and vancomycin pending further recommendations by infectious disease -Orders place for MRI brain with and without contrast, CT chest, and MRI of cervical and thoracic spine with and without contrast. Hypokalemia -Potassium 3.4, replaced. -We will continue to monitor with repeat a.m. labs. Poor living condition Recurrent episodes of hospital admission for alcohol abuse Major life stressors with possible major depression -We will reconsult psychiatry when mentation improves -silo worker consultation Macrocytic anemia mild, Most likely secondary to alcohol abuse No reported GI bleeding -Multiple skin abrasions and bruising in multiple stages of healing -Left eye bruising -No acute fractures identified Hypernatremia, resolved status post administration of IV fluids. CODE STATUS: Full code DVT prophylaxis: SCDs Discussed with: Patient and RN Anticipated discharge date: Clinical course to determine Anticipated discharge place: Home A total of 45 minutes was spent on the care of this complex patient more than 50% of the time was spent in counseling and care coordination. Objective - Vital Signs Vital signs: Vital Signs Temp 99.1 F 03/23/21 07:53 Pulse 104 H 03/23/21 08:00 Resp 16 03/23/21 08:00 BP 138/83 03/23/21 07:53 Pulse Ox 98 03/23/21 07:53 Intake & Output 03/22/21 03/23/21 03/23/21 18:59 06:59 18:59 Intake Total 240 Output Total 1300 1380 Balance -1060 -1380 Weight 106 kg Intake: Oral 240 Output: Urine 1300 1380 Uretheral (Rendon) 700 Other: Voiding Method Indwelling Catheter Indwelling Catheter Indwelling Catheter # Bowel Movements 1 - Labs CBC & Chem 7: 03/23/21 06:41 03/23/21 06:41 Labs: Abnormal Lab Results - Last 24 Hours (Table) 03/23/21 03/23/21 03/23/21 Range/Units 01:13 06:41 06:41 WBC 15.9 H (3.8-10.6) k/uL RBC 3.43 L (4.30-5.90) m/uL Hgb 11.7 L (13.0-17.5) gm/dL Hct 35.0 L (39.0-53.0) % MCV 102.2 H (80.0-100.0) fL Potassium 3.4 L (3.5-5.1) mmol/L Carbon Dioxide 20 L (22-30) mmol/L BUN 5 L (9-20) mg/dL Creatinine 0.30 L (0.66-1.25) mg/dL POC Glucose (mg/dL) 101 H (75-99) mg/dL Calcium 8.0 L (8.4-10.2) mg/dL Microbiology - Last 24 Hours (Table) 03/20/21 17:40 Blood Culture - Preliminary Blood No Growth after 48 hours 03/18/21 19:00 Gram Stain - Final Knee - Right Wound Culture - Final 03/18/21 11:35 CSF Gram Stain - Final Cerebral Spinal Fluid CSF Culture - Final 03/17/21 09:05 Blood Culture - Preliminary Blood No Growth after 120 hours <Melva Cline - Last Filed: 03/23/21 15:30> Subjective Patient seen and examined independently. Patient was also seen by Ivan Maharaj NP and case was discussed. I am in agreement with subjective, physical exam, assessment and plan as written above and amended below. He is much more awake today. He states he is having some low back pain, denies headache, denies nausea, vomiting, cough, shortness of breath. Case discussed with Osman Malone who feels that encephalopathy is due to infection. Will CT chest to evaluate for possible abscess/emphyema with ETOH w/d and MRI Brain and Thoracic spine to rule out discitits Patient has been improving with last fever 03/22 at 0200 General: non toxic, no distress, appears at stated age Derm: warm, dry, multiple arease of abraisians nb/l LE around Knees and multiple areas of ecchymosis in various stages of healing. Gluteal cleft with erythema, appears moist, some slough. Head: atraumatic, normocephalic, symmetric Eyes: EOMI, no lid lag, anicteric sclera Mouth: no lip lesion, mucus membranes moist Cardiovascular: S1S2 reg, no murmur, positive posterior tibial pulse bilateral, Lungs: CTA bilateral, no rhonchi, no rales , no accessory muscle use Abdominal: soft, nontender to palpation, no guarding, no appreciable organomegaly Ext: no gross muscle atrophy, no edema, no contractures Neuro: CN II-XI grossly intact, no focal neuro deficits Psych: Alert, oriented to self and hospital, appropriate affect Objective - Vital Signs Vital signs: Vital Signs Temp 98.8 F 03/23/21 11:47 Pulse 110 H 03/23/21 14:00 Resp 16 03/23/21 14:00 BP 119/86 03/23/21 11:47 Pulse Ox 99 03/23/21 11:47 Intake & Output 03/22/21 03/23/21 03/23/21 18:59 06:59 18:59 Intake Total 240 960 Output Total 1300 1380 Balance -1060 -1380 960 Weight 106 kg 106 kg Intake: Oral 240 960 Output: Urine 1300 1380 Uretheral (Rendon) 700 Other: Voiding Method Indwelling Catheter Indwelling Catheter Indwelling Catheter # Bowel Movements 1 3 - Labs CBC & Chem 7: 03/23/21 06:41 03/23/21 06:41 Labs: Abnormal Lab Results - Last 24 Hours (Table) 03/23/21 03/23/21 03/23/21 Range/Units 01:13 06:41 06:41 WBC 15.9 H (3.8-10.6) k/uL RBC 3.43 L (4.30-5.90) m/uL Hgb 11.7 L (13.0-17.5) gm/dL Hct 35.0 L (39.0-53.0) % MCV 102.2 H (80.0-100.0) fL Potassium 3.4 L (3.5-5.1) mmol/L Carbon Dioxide 20 L (22-30) mmol/L BUN 5 L (9-20) mg/dL Creatinine 0.30 L (0.66-1.25) mg/dL POC Glucose (mg/dL) 101 H (75-99) mg/dL Calcium 8.0 L (8.4-10.2) mg/dL 03/23/21 Range/Units 11:38 WBC (3.8-10.6) k/uL RBC (4.30-5.90) m/uL Hgb (13.0-17.5) gm/dL Hct (39.0-53.0) % MCV (80.0-100.0) fL Potassium (3.5-5.1) mmol/L Carbon Dioxide (22-30) mmol/L BUN (9-20) mg/dL Creatinine (0.66-1.25) mg/dL POC Glucose (mg/dL) 109 H (75-99) mg/dL Calcium (8.4-10.2) mg/dL Microbiology - Last 24 Hours (Table) 03/19/21 11:55 Anaerobic Culture - Final Ankle - Left 03/18/21 19:00 Anaerobic Culture - Final Knee - Right 03/19/21 14:59 Blood Culture Gram Stain - Final Blood Blood Culture - Final Staphylococcus epidermidis 03/17/21 09:05 Blood Culture - Final Blood No Growth after 144 hours 03/20/21 17:40 Blood Culture - Preliminary Blood No Growth after 48 hours 03/18/21 19:00 Gram Stain - Final Knee - Right Wound Culture - Final 03/18/21 11:35 CSF Gram Stain - Final Cerebral Spinal Fluid CSF Culture - Final
[2021-03-23 12:01] LABS: Glucose,Whole Blood 109 mg/dL (75-99)
--- NOTE | 2021-03-23 12:21 | P.PN ---
Subjective Progress Note Date: 03/23/21 Principal diagnosis: Altered mental status, aspiration pneumonia, acute EtOH withdrawal This a 55-year-old white male patient who was admitted to the hospital on March 14, 2021 when he was found delirious and confused by his neighbor and his home. Patient was found laying on the floor, in his own feces, he had a bunch alcohol bottles lying around him. he had multiple bruises and abrasions in different stages of healing. He has a hematoma to his left eye , and abrasions on his knees and lower extremities. Tendon has a history of mathews abuse, eats marijuana edibles. Drug screen was positive for marijuana, benzodiazepines. His alcohol level was less than 10. Brain CT showed no acute intracranial abnormality, no fracture, cervical spine, additional spondylotic changes in the cervical spine. CT of the facial bones showed evidence of old fracture of the floor of the left bony orbit, no acute fractures. Initial chest x-ray showed minimal subsegmental atelectasis in the right lung base without change. EKG showed sinus rhythm. Initial blood work showed a white count of 7.8, hemoglobin 12.3, INR of 1.2, sodium was 153, potassium 3.4, chloride is 115, CO2 is 24, B1 and creatinine 0.74, troponin was 0.016. Patient was started on benzodiazepines in the form of Ativan per [facility] protocol. Neurology consultation was obtained. Psychiatric services are following. Patient is on thiamine and folate per [facility] protocol. ABG showed moderate to severe degree of slowing, consistent with toxic metabolic encephalopathy, no epileptiform discharges were seen. This morning patient started spiking fevers with a temp of 101.4F, he is also requiring supplemental oxygen currently at 2 L with a pulse ox of 93-97%, he is receiving Valium and when necessary Ativan. Quite lethargic, confused, he opens eyes to voice, however he is not able to provide any meaningful verbal responses. Today's chest x-ray has been reviewed showing right basilar patchy infiltrate and/or atelectasis. Patient was placed on empiric antibiotics in the form of Rocephin and vancomycin. In view of altered mentation and fever lumbar puncture was requested however anesthesia was unable to perform it because Lovenox was given this morning. We were consulted in view of depressed level of consciousness related to benzodiazepines and possibility of needing to intubate the patient placement on mechanical ventilator. Blood gas has been obtained showing pO2 of 85, pCO2 of 33, pH of 7.51 this was done on FiO2 of 28%, patient is breathing fairly comfortably, does not appear to be in any acute distress, head of the bed is up 35, he is currently on 2 L of oxygen, his pulse ox is 97%. No coughing or wheezing. He continues on empiric antibiotics. On today's evaluation of a 2020, the patient is essentially the same. No major improvement in his underlying mental status. The patient remains encephalopathic. He is unable to say. This is 50 gases some few words such as yes or no. Unable to follow any commands. His been having also episodes of fever. Based on all this, the patient underwent a lumbar puncture suspecting encephalitis. No neck stiffness. The lumbar puncture was completed and the patient was found to have elevated CSF protein. The total white cell count was 18. The patient had 85% polys tear cells and 50% mononuclear cells. The CSF protein was 226. Glucose is a 69. Patient was also covered with broad-spectrum antibiotics including a combination of Rocephin and vancomycin. The patient is also on acyclovir IV 1 g 3 times a day. The white cell count is 11.5 with hemoglobin of 12.1. INR is at 1.4. BUN is at 4 with a creatinine of 0.5. Rest of the electrodes are within normal limits. No seizure activity has been noted. EEG was done and was quite abnormal due to background slowing and moderate to severe slowing of the EEG activity suggestive of generalized cerebral dysfunction. Neurology is on the case for now. In terms of alcohol withdrawal, delirium tremors, the patient is currently on Ativan based on the [facility] protocol. The patient is also on D5 half-normal saline today to 100 mL an hour. The patient will be transferred to the intensive care unit for further monitoring. 03/19/2021, the patient is still encephalopathic. Slightly more rested and more awake compared to yesterday. Nevertheless he remains encephalopathic. No neck stiffness. No headaches. MRI of the brain was done and showed no acute abnormalities. As stated earlier, his CSF evaluation was not consistent with bacterial meningitis. HSV by PCR still pending. He remains on vancomycin. He remains on Rocephin. He remains on acyclovir. He is receiving Ativan per [facility] protocol. He is on D5 half-normal saline at the rate of 100 mL an hour. Hemo dynamically stable. Pulse ox is 98% on 2 L of oxygen by nasal cannula. Chest x-ray shows no evidence of any pneumonia. Note that his urine drug screen was positive for benzodiazepines and marijuana. His blood work from today shows a WD second of 11.8 with hemoglobin of 12.3. Platelets is at 193. Electrolytes are normal. Renal functions are normal. Hepatic function is normal. Albumin is at 2.1 with a protein of 4.8. On today's evaluation of a 03/20/2021, the patient is breathing comfortably. The patient got transferred out of the intensive care unit. Currently is on room air oxygen. He remains somewhat encephalopathic. No agitation. No other significant respiratory distress. No significant tachycardia. Lumbar puncture came back negative for any bacterial growth. Lumbar puncture was also negative for HSV by PCR. Acyclovir was discontinued. There was a concern that the p atient may have a septic joint. He was seen by orthopedic surgery. He is left ankle was drained. A total of 60 mL of fluid was removed from the ankle and was sent to lab. Patient was kept on antibiotics and patient is currently on a combination of cefepime and vancomycin. Cultures are all negative the white cell count. The white cell count is at 11.8. INR is at 1.4 with a PT of 13.8. His creatinine today is 0.7. MRI of the lumbar spine was done and showed no evidence of any discitis. No significant disc space narrowing. There is evidence of no fracture. There is evidence of multiple. Mild joint facet arthropathy. On 03/21/2021 patient seen in follow-up on selective care unit, he is much more awake today, is responding verbally, he knows he is in the hospital, he is oriented to person, denies any acute distress. He denies heavy alcohol intake. He states he fell at home, and he was stone sober at the time. Currently he is on room air, with pulse ox of 97%, vital signs have been stable, his been afebrile. He remains on cefepime and vancomycin. His chest x-ray on 03/11/2021 showed a subsegmental basilar atelectatic changes. His CSF cultures have shown no growth after 3 days, blood culture from 03/11/2021 showed Staphylococcus epidermidis likely related to skin contamination, left ankle wound culture has shown no growth. His vital signs have been stable, he denies any difficulty breathing, no cough, no phlegm production, no chest discomfort, today's labs show a white blood cell count of 8.6, hemoglobin of 11.5. MRI of the spine showed no evidence of discitis, no disc space narrowing, no fracture. There was a multilevel mild facet arthropathy and mild lateral recess stenosis, those multilevel mild posterior disc bulging without spinal stenosis. on 03/22/2021 patient seen in follow-up on selective care unit, he is awake and alert, in no acute distress, room air pulse ox is 97%, he is breathing comfortably, no cough, no complaints of chest discomfort, normal production, still is having fevers, T-max in the last 24 hours is 102F. his follow-up blood culture from 03/20/2021 showed no growth, patient remains on cefepime and vancomycin. today's labs have been reviewed, self liquid silk on is to 11.5, hemoglobin is 12.1. sodium is 140, potassium 3.1, this was replaced per protocol, chloride is 10 9, BUN is 4, creatinine 0.36, pro calcitonin level is 50. patient is a combination of cefepime and vancomycin. orthopedic surgery is following, patient has left ankle pain , CT of the left lower extremity showed soft tissue swelling and calcaneal spurring. no altered mentation, patient awake and alert and oriented times 3. On 03/23/2021 patient seen in follow-up. he is resting in bed, in no acute distress. Denies any difficulty breathing, room air pulse ox is 99%, his been afebrile, vital signs have been stable. No fever or chills. No cough, no chest discomfort. Continues on antibiotics, his pro calcitonin level quite elevated at 50.22. No clear evidence of pneumonia. Blood culture from 03/19/2021 shows Staphylococcus epidermidis. Today's labs have been reviewed, showing white blood cell count of 15.9, hemoglobin of 11.7, potassium is 3.4, CO2 is 20, tested electrolytes were within normal limits, B1 is 5, creatinine 0.30. His appetite has been poor, and he is been consuming very little of his meals. Objective - Vital Signs Vital signs: Vital Signs Temp 98.8 F 03/23/21 11:47 Pulse 110 H 03/23/21 11:47 Resp 16 03/23/21 11:47 BP 119/86 03/23/21 11:47 Pulse Ox 99 03/23/21 11:47 Intake & Output 03/22/21 03/23/21 03/23/21 18:59 06:59 18:59 Intake Total 240 Output Total 1300 1380 Balance -1060 -1380 Weight 106 kg 106 kg Intake: Oral 240 Output: Urine 1300 1380 Uretheral (Rendon) 700 Other: Voiding Method Indwelling Catheter Indwelling Catheter Indwelling Catheter # Bowel Movements 1 - Exam GENERAL EXAM: Alert, much more responsive on today's exam, 55-year-old male, on room air with a pulse ox of 97%, with bruising on his face, arms and legs and over left eye, oriented to person and place comfortable in no apparent distress. HEAD: Normocephalic/atraumatic. EYES: Normal reaction of pupils, equal size. Conjunctiva pink, sclera white. NOSE: Clear with pink turbinates. THROAT: No erythema or exudates. NECK: No masses, no JVD, no thyroid enlargement, no adenopathy. CHEST: No chest wall deformity. Symmetrical expansion. LUNGS: Equal air entry with no crackles, wheeze, rhonchi or dullness. CVS: Regular rate and rhythm, normal S1 and S2, no gallops, no murmurs, no rubs ABDOMEN: Soft, nontender. No hepatosplenomegaly, normal bowel sounds, no guarding or rigidity. EXTREMITIES: No clubbing, no edema, no cyanosis, 2+ pulses and upper and lower extremities. MUSCULOSKELETAL: Muscle strength and tone normal. SPINE: No scoliosis or deformity SKIN: No rashes, abrasions and bruising on bilateral lower extremities, arms, and over the left eye CENTRAL NERVOUS SYSTEM: Alert and oriented -2. No focal deficits, tone is normal in all 4 extremities. PSYCHIATRIC: Alert and oriented -2. Appropriate affect. Intact judgment and insight. - Labs CBC & Chem 7: 03/23/21 06:41 03/23/21 06:41 Labs: Abnormal Lab Results - Last 24 Hours (Table) 03/23/21 03/23/21 03/23/21 Range/Units 01:13 06:41 06:41 WBC 15.9 H (3.8-10.6) k/uL RBC 3.43 L (4.30-5.90) m/uL Hgb 11.7 L (13.0-17.5) gm/dL Hct 35.0 L (39.0-53.0) % MCV 102.2 H (80.0-100.0) fL Potassium 3.4 L (3.5-5.1) mmol/L Carbon Dioxide 20 L (22-30) mmol/L BUN 5 L (9-20) mg/dL Creatinine 0.30 L (0.66-1.25) mg/dL POC Glucose (mg/dL) 101 H (75-99) mg/dL Calcium 8.0 L (8.4-10.2) mg/dL 03/23/21 Range/Units 11:38 WBC (3.8-10.6) k/uL RBC (4.30-5.90) m/uL Hgb (13.0-17.5) gm/dL Hct (39.0-53.0) % MCV (80.0-100.0) fL Potassium (3.5-5.1) mmol/L Carbon Dioxide (22-30) mmol/L BUN (9-20) mg/dL Creatinine (0.66-1.25) mg/dL POC Glucose (mg/dL) 109 H (75-99) mg/dL Calcium (8.4-10.2) mg/dL Microbiology - Last 24 Hours (Table) 03/17/21 09:05 Blood Culture - Final Blood No Growth after 144 hours 03/20/21 17:40 Blood Culture - Preliminary Blood No Growth after 48 hours 03/18/21 19:00 Gram Stain - Final Knee - Right Wound Culture - Final 03/18/21 11:35 CSF Gram Stain - Final Cerebral Spinal Fluid CSF Culture - Final Assessment and Plan Plan: Assessment: #1. Acute hypoxic respiratory failure related to atelectasis, and possibility of right basilar pneumonia is not completely excluded, chest x-ray showing right basilar patchy infiltrate. Currently patient is on room air, follow-up chest x- ray showed subsegmental basilar atelectatic changes. No clear evidence of pneumonia. No pulmonary symptoms #2. Altered mental status, related to acute delirium tremens. CT of the head and cervical spine showing no acute pathology, CSF cultures remain negative. HSV by PCR was negative. Cultures remain negative, MRI of the brain was negative, no seizure activity. Her mentation is much improved, and patient is oriented to person and place #3. History of prescription drug abuse, alcohol abuse #4. Falls at home, related to altered mental status #5. Multiple skin abrasions, including left eye bruising, with a CT of the face showing no acute fractures #6. Hypernatremia related to dehydration free water deficit, improved with IV fluids #7. Hypertension #8. GERD/reflux #9. Anxiety Plan: Breathing comfortably, encourage deep breathing and coughing, and incentive spirometry use He is on room air, maintaining stable O2 saturations CT of the abdomen and pelvis reviewed, and lower lung cuts showed pleural effusions and basilar atelectasis and possibility of right hemidiaphragm paralysis Vital signs are stable, no fever, continues on antibiotics Maintain aspiration precautions I performed a history & physical examination of the patient and discussed their management with my nurse practitioner, Naila Pryor. I reviewed the nurse practitioner's note and agree with the documented findings and plan of care. Lung sounds are positive for diffuse wheezes throughout the lung licea. The findings and the impression was discussed with the patient. I attest to the documentation by the nurse practitioner. Time with Patient: Less than 30
--- NOTE | 2021-03-23 13:51 | CT ---
EXAMINATION TYPE: CT chest wo con DATE OF EXAM: 03/23/2021 COMPARISON: None HISTORY: Acute encephalopathy, acute ETOH withdrawl CT DLP: 511.10 mGycm, Automated exposure control for dose reduction was used. CONTRAST: Performed injected with 0 mL of Isovue 300. TECHNIQUE: Axial images were obtained at 5 mm thick sections. Reconstructed images are reviewed on [facility] computer in the coronal plane. FINDINGS: Portion of the thyroid visualized is normal. There is some increased linear density within the lateral left apex may be some atelectasis. Underlyi ng mass measuring 0.5 x 1.1 cm is not excluded. Series 4 image 14. There is some pleural-based thickening along the posterior-lateral right lung margin measuring 2.1 x 0.8 cm. Series 4 image 53. Small bilateral pleural effusions are present. No enlarged mediastinal or hilar adenopathy is evident. The ascending aorta diameter at the level o f the main pulmonary artery is 3.6 cm. The main pulmonary artery diameter at the bifurcation is 3.[address] sections are obtained through the upper abdomen. There is moderate fatty infiltration of [facility] liver. Upper abdomen is otherwise unremarkable. IMPRESSIONS: 1. Small left apical density. An additional left lateral lung base thickening may be present. Atelect asis and underlying mass should be considered. 2. No evidence of pneumonia or aspiration pneumonia. 3. Moderate fatty infiltration through the the liver
--- NOTE | 2021-03-23 14:08 | MR ---
EXAMINATION TYPE: MR brain wo con DATE OF EXAM: 03/23/2021 COMPARISON: None HISTORY: Altered mental status CONTRAST: Performed utilizing 0 mL intravenous Gadavist gadolinium contrast. TECHNIQUE: Multiplanar, multiecho imaging on a 3.0 Suzi magnet is performed through the brain. Stud y is performed within 24 hours of arrival to the hospital. Motion artifact degrades the T2 sequence. Patient refused contrast to complete the exam. The craniovertebral junction is normal. The pituitary is normal. Diffusion-weighted imaging is performed. No abnormal hyperintensity is present to suggest an acute i ntracranial infarct or acute ischemic change. Significant signal abnormality within the brain is not identified. May be difficult to exclude some m ild periventricular white matter ischemic-type change. Ventricles and sulci are appropriate for the patient age. IMPRESSIONS: 1. Limited examination due to patient's pain. 2. No obvious significant intracranial abnormality.
[2021-03-23] MEDS: NYSTATIN 100,000 UNIT/GM OINT 30 GM TUBE TOPICAL SCH ×2 (15:44→21:06)
--- NOTE | 2021-03-23 15:52 | P.PN ---
Subjective Progress Note Date: 03/23/21 The patient is seen at bedside and per his nurse his mentation is improving compared to his initial presentation. Tmax in 24 hours is 99.7 on 03/22/21 at around 23:18. Objective - Vital Signs Vital signs: Vital Signs Temp 98.8 F 03/23/21 11:47 Pulse 110 H 03/23/21 14:00 Resp 16 03/23/21 14:00 BP 119/86 03/23/21 11:47 Pulse Ox 99 03/23/21 11:47 Intake & Output 03/22/21 03/23/21 03/23/21 18:59 06:59 18:59 Intake Total 240 960 Output Total 1300 1380 Balance -1060 -1380 960 Weight 106 kg 106 kg Intake: Oral 240 960 Output: Urine 1300 1380 Uretheral (Rendon) 700 Other: Voiding Method Indwelling Catheter Indwelling Catheter Indwelling Catheter # Bowel Movements 1 3 - Exam GENERAL: The patient is lying in bed and is moderate acute distress. INTEGUMENTARY: Multiple skin abrasion. MUSCULOSKELETAL: Pain with flexion of the right knee. Has bruises of both knee NEUROLOGICAL: Higher mental function: The patient is awake, alert, oriented to self and place. He stated the year is 2021 and the month is February. Patient is able to name objects correctly (pen, watch). He seems to be responding a bit faster today compared to yesterday (but continues to be somewhat slow). Patient is following simple commands. No aphasia from limited language. No neglect. Cranial nerves: The pupils are round, equal and reactive to light. Visual licea are full to confrontation throughout. Extraocular movement is tracking to the right and left and no appreciable nystagmus. Has echymosis around the eye (mostly upper). The facial strength is normal throughout. No dysarthria is noted. Motor: The strength is moving upper extremities above gravity without focality and seems about 5- while the lower are limited because of pain. The left lower extremity he was able to bend the knee while the right he was in severe pain attempting to bend the knee. Had antigravity of bilateral ankles. Normal tone and bulk in upper and hard to assess tone in lower because of his pain.. Cerebellum: Normal finger to nose bilaterally Sensation: Sensation is normal to touch throughout. Reflexes (right/left): Brachioradialis are 3+, biceps are 2-3+ bilaterally, triceps are 2+. Lowers are to assess because of pain. Plantars are mute bilaterally. WORK-UP: * CPK is 999 on 03/14 but 217 on 03/16--improved. * B12 582 normal, however at MMA is elevated 0.46 (normal <0.40). This may indicate intracellular deficiency of B12. Patient's folate 5.7, TSH 1.77, RPR nonreactive. * Low Vitamin B6 3 (normal is 5-50). * Ammonia level 12 (normal) * ESR 64 on 0 828 and the repeated ESR 77 on 03/21/2021. * MRI of the brain on 03/18/21 revealed mild atrophy. Mild subependymal white matter increased signal around the lateral ventricles measuring up to 5 mm in thickness. No evidence of cortical infarct. * REPEAT MRI brain w/o (03/23/21): I ordered MRI the brain with and without but because the patient was in so much pain that was the study was limited and it was done only without. The MR the brain is reported as limited examination due to patient's pain. No obvious significant intracranial abnormality. * MRI of the lumbar spine with and without contrast 03/19/2021 revealed no evidence of discitis. No significant disc space narrowing. No fracture. Multilevel mild facet arthropathy and mild lateral recess stenosis. Multilevel mild posterior disc bulging without spinal stenosis. * CerebroSpinal fluid examination revealed glucose 64 (40-70), proteins 226 (12- 60), total WBC count in CSF 18, out of its 15% monocytes and 85% polynuclear's. CSF RBC 5175, due to traumatic tap. * Patient's spinal fluid was traumatic because patient was not cooperating. CSF showsCSF shows very mild leukocytosis ( about 2-3 cells above normal after correction for traumatic tap), and very elevated proteins. Cultures negative. HSV-1 and 2 PCR in the CSF are negative. Viral test are negative. Infectious disease following. * Patient had undergone aspiration of right knee and left ankle, both of which have been negative for any growth. No crystals seen in the sinonasal fluid. * Routine EEG on 03/17/21 was reported as abnormal due to background slowing of moderate to severe degree. This is suggestive of generalized cerebral dysfunction, as can be seen with toxic metabolic encephalopathy or due to diffuse structural brain abnormality. No epileptiform activity was seen. * Carotid Doppler was technically difficult due to patient's inability to hold still. No hemodynamically significant ICA stenosis identified on either side. Antegrade flow in both vertebral arteries. * CT of facial bone on 03/14/2021 is reported as there is evidence of old bone out fracture of the floor of the left bony orbits. No acute fracture seen. * Left Lower extremity CT 03/22/2021: is reported as chronic changes as noted. Soft tissue swelling. Calcaneal is spurring. * CT of the abdomen/pelvis: Was reported as fatty infiltration of the liver. Pleural effusion and basilar atelectasis. Elevated right diaphragm could relate to diaphragm paralysis. Subcutaneous edema around the abdomen. Congestive heart failure as possible. These abnormality. New compared to old exam. 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 No acute abnormality within the abdomen pelvis * CT of the chest is reported as small left apical density. Additional left la teral long-based thickening may be present. At the clinic today says an underlying mass should be considered. No evidence of pneumonia or aspiration pneumonia. Moderate fatty infiltration to the liver. - Labs CBC & Chem 7: 03/23/21 06:41 03/23/21 06:41 Labs: Abnormal Lab Results - Last 24 Hours (Table) 03/23/21 03/23/21 03/23/21 Range/Units 01:13 06:41 06:41 WBC 15.9 H (3.8-10.6) k/uL RBC 3.43 L (4.30-5.90) m/uL Hgb 11.7 L (13.0-17.5) gm/dL Hct 35.0 L (39.0-53.0) % MCV 102.2 H (80.0-100.0) fL Potassium 3.4 L (3.5-5.1) mmol/L Carbon Dioxide 20 L (22-30) mmol/L BUN 5 L (9-20) mg/dL Creatinine 0.30 L (0.66-1.25) mg/dL POC Glucose (mg/dL) 101 H (75-99) mg/dL Calcium 8.0 L (8.4-10.2) mg/dL 03/23/21 Range/Units 11:38 WBC (3.8-10.6) k/uL RBC (4.30-5.90) m/uL Hgb (13.0-17.5) gm/dL Hct (39.0-53.0) % MCV (80.0-100.0) fL Potassium (3.5-5.1) mmol/L Carbon Dioxide (22-30) mmol/L BUN (9-20) mg/dL Creatinine (0.66-1.25) mg/dL POC Glucose (mg/dL) 109 H (75-99) mg/dL Calcium (8.4-10.2) mg/dL Microbiology - Last 24 Hours (Table) 03/19/21 11:55 Anaerobic Culture - Final Ankle - Left 03/18/21 19:00 Anaerobic Culture - Final Knee - Right 03/19/21 14:59 Blood Culture Gram Stain - Final Blood Blood Culture - Final Staphylococcus epidermidis 03/17/21 09:05 Blood Culture - Final Blood No Growth after 144 hours 03/20/21 17:40 Blood Culture - Preliminary Blood No Growth after 48 hours 03/18/21 19:00 Gram Stain - Final Knee - Right Wound Culture - Final 03/18/21 11:35 CSF Gram Stain - Final Cerebral Spinal Fluid CSF Culture - Final Assessment and Plan Assessment: * 55-year-old male with history of alcoholism, was found at laying with fecal matter with multiple bruises, scratches and pressure sores over dependent areas, indicating patient has been on the floor for fairly long period of time. Last period of contact with his friends was on Sunday, 3 days prior to arrival. * Fevers of unknown etiology. MRI Brain is negative. No definitive evidence of meningitis/encephalitis based upon CSF results. CSF culture are negative. HSV PCR negative and viral are negative. * Encpehalopathy of unknown etiology. Rule out infectious process (unknown source yet)--mentation is slowly improving. * Low Vitamin B6 3 (normal is 5-50). * Multiple skin abrasions including left eye bruising * History of multiple falls * Hypertension * History of alcoholism * History of marijuana use. Plan: MRI cervical spine and thoracic spine is ordered and is pending (since source unknown source of fevers). Will defer antibiotic management to the I.D. team. Continue folic acid 1mg daily and Vitamin B12 1000mcg daily. Continue Thiamine daily. Continue Vitamin B6 50mg bid and within 2-3month recommend getting repeat levels again and modify medication appropriately if needed. Infection disease is on board. Pulmonary team is on board. Orthopedic team is on board. Will defer the rest of medical management to the primary team. The plan is discussed with the patient's primary team and his nurse. Osman Malone MD Neuro-Hospitalist Time with Patient: Less than 30
[2021-03-23 16:52] LABS: Glucose,Whole Blood 102 mg/dL (75-99)
--- NOTE | 2021-03-23 22:55 | PN ---
PROGRESS NOTE DATE OF SERVICE: 03/23/2021 REASON FOR FOLLOWUP: Fever, possible left lower extremity cellulitis. INTERVAL HISTORY: The patient's overall fever pattern has improved. He did have a low-grade fever of 99.7 today. The patient is breathing comfortably on room air. Denies having any chest pain, shortness of breath or cough. No abdominal pain. Complaining of some pain in the left lower extremity, but no worsening and no diarrhea. PHYSICAL EXAMINATION: Blood pressure 138/87, pulse of 114, temperature 99.7. He is 97% on room air. GENERAL DESCRIPTION: General description is a middle-aged male lying in bed in no distress. RESPIRATORY SYSTEM: Unlabored breathing. Clear to auscultation anteriorly. HEART: S1, S2. Regular rate and rhythm. ABDOMEN: Soft. No tenderness. Left leg with some swelling. No significant redness or drainage. LABS: Hemoglobin is 9.3, white count 15.9, BUN of 5, creatinine 0.30. CT of abdomen and pelvis done yesterday did not show any acute abnormality. DIAGNOSTIC IMPRESSION AND PLAN: Patient with fever in this patient who did have extensive workup with initial concern for left ankle septic arthritis. However, those cultures have been negative. CT of abdomen and pelvis did not show any acute abnormality. MRI of the lumbar spine was negative. We will discontinue the cefepime, continue the patient on vancomycin and monitor his clinical course closely. MMODL / IJN: [id number] /
[2021-03-23 23:59] LABS: Glucose,Whole Blood 89 mg/dL (75-99)
[2021-03-24 06:10] LABS: Glucose,Whole Blood 89 mg/dL (75-99)
[2021-03-24] MEDS: VANCOMYCIN 1,500 MG in SODIUM CHLORIDE 0.9% 250 ML IVPB SCH ×3 (06:46→21:44)
[2021-03-24] MEDS: PANTOPRAZOLE 40 MG TABLET PO SCH (06:46)
--- NOTE | 2021-03-24 09:00 | P.PN ---
Subjective Progress Note Date: 03/24/21 Principal diagnosis: Left ankle pain, cellulitis Patient was seen at bedside this morning on cardiac floor. Patient is able to respond to verbal questions today. Patient is lying semirecumbent in bed. When patient was asked to bend left ankle he moans in pain. Patient denies chest pain, fever, shortness breath, nausea, vomiting, change in vision, loss of bowel/bladder control. Objective - Vital Signs Vital signs: Vital Signs Temp 99.8 F H 03/24/21 04:00 Pulse 110 H 03/24/21 04:00 Resp 18 03/24/21 04:00 BP 124/75 03/24/21 04:00 Pulse Ox 96 03/24/21 04:00 Intake & Output 03/23/21 03/24/21 03/24/21 18:59 06:59 18:59 Intake Total 960 Output Total 1200 Balance 960 -1200 Weight 106 kg 60 kg Intake: Oral 960 Output: Urine 1200 Other: Voiding Method Indwelling Catheter Indwelling Catheter # Bowel Movements 3 1 - Exam left ankle: Left ankle examined at bedside this morning. When left ankle is dorsiflexed patient moans in pain. The area of erythema seems to be less compared to yesterday around the ankle. There is still some swelling around the foot and ankle. DP pulses intact. Cap refill under 3 seconds. - Labs CBC & Chem 7: 03/23/21 06:41 03/23/21 06:41 Labs: Abnormal Lab Results - Last 24 Hours (Table) 03/23/21 03/23/21 Range/Units 11:38 16:51 POC Glucose (mg/dL) 109 H 102 H (75-99) mg/dL Microbiology - Last 24 Hours (Table) 03/20/21 17:40 Blood Culture - Preliminary Blood No Growth after 72 hours 03/19/21 11:55 Anaerobic Culture - Final Ankle - Left 03/18/21 19:00 Anaerobic Culture - Final Knee - Right 03/19/21 14:59 Blood Culture Gram Stain - Final Blood Blood Culture - Final Staphylococcus epidermidis 03/17/21 09:05 Blood Culture - Final Blood No Growth after 144 hours Assessment and Plan Assessment: Left ankle pain, cellulitis Plan: 1. Left ankle pain, cellulitis -aspiration was performed Sunday01/17/2021 the left ankle where 6 mL of serous joint fluid was aspirated and sent to lab for culture, Gram stain, crystals, aerobic and anaerobic cultures. Final results for Gram Stain and aerobic cultures of left ankle negative.anaerobic culture negative. CT lower extremity negative and shows some soft tissue swelling and calcaneal spurring. No urgent surgical intervention planned at this time from orthopedic standpoint. Patient stable from an orthopedic standpoint. Orthopedics is signing off at this time. Please do not hesitate to contact us if you have any further questions 2. Appreciate medical management 3. Pain management - stable at this time 4. GI prophylaxis/DVT prophylaxis - Protonix; Mechanical - SCDs 5. PT/OT - weightbearing as tolerated with assistance 6. Appreciate consult Time with Patient: Less than 30
[2021-03-24] MEDS: NYSTATIN 100,000 UNIT/GM OINT 30 GM TUBE TOPICAL SCH ×3 (09:51→21:55)
[2021-03-24] MEDS: PYRIDOXINE 50 MG TAB PO SCH ×2 (09:52→21:45)
[2021-03-24] MEDS: lisinopriL 10 MG TAB PO SCH (09:52)
[2021-03-24] MEDS: FOLIC ACID 1 MG TAB PO SCH (09:52)
[2021-03-24] MEDS: THIAMINE 100 MG in SODIUM CHLORIDE 0.9% 50 ML IVPB SCH ×2 (09:52→21:41)
[2021-03-24] MEDS: amLODIPine 5 MG TAB PO SCH ×2 (09:52→21:45)
[2021-03-24 10:42] LABS: VBG PH 7.54 (7.31-7.41)
--- NOTE | 2021-03-24 10:44 | P.PN ---
Subjective Progress Note Date: 03/24/21 Principal diagnosis: Altered mental status, aspiration pneumonia, acute EtOH withdrawal This a 55-year-old white male patient who was admitted to the hospital on March 14, 2021 when he was found delirious and confused by his neighbor and his home. Patient was found laying on the floor, in his own feces, he had a bunch alcohol bottles lying around him. he had multiple bruises and abrasions in different stages of healing. He has a hematoma to his left eye , and abrasions on his knees and lower extremities. Tendon has a history of mathews abuse, eats marijuana edibles. Drug screen was positive for marijuana, benzodiazepines. His alcohol level was less than 10. Brain CT showed no acute intracranial abnormality, no fracture, cervical spine, additional spondylotic changes in the cervical spine. CT of the facial bones showed evidence of old fracture of the floor of the left bony orbit, no acute fractures. Initial chest x-ray showed minimal subsegmental atelectasis in the right lung base without change. EKG showed sinus rhythm. Initial blood work showed a white count of 7.8, hemoglobin 12.3, INR of 1.2, sodium was 153, potassium 3.4, chloride is 115, CO2 is 24, B1 and creatinine 0.74, troponin was 0.016. Patient was started on benzodiazepines in the form of Ativan per [facility] protocol. Neurology consultation was obtained. Psychiatric services are following. Patient is on thiamine and folate per [facility] protocol. ABG showed moderate to severe degree of slowing, consistent with toxic metabolic encephalopathy, no epileptiform discharges were seen. This morning patient started spiking fevers with a temp of 101.4F, he is also requiring supplemental oxygen currently at 2 L with a pulse ox of 93-97%, he is receiving Valium and when necessary Ativan. Quite lethargic, confused, he opens eyes to voice, however he is not able to provide any meaningful verbal responses. Today's chest x-ray has been reviewed showing right basilar patchy infiltrate and/or atelectasis. Patient was placed on empiric antibiotics in the form of Rocephin and vancomycin. In view of altered mentation and fever lumbar puncture was requested however anesthesia was unable to perform it because Lovenox was given this morning. We were consulted in view of depressed level of consciousness related to benzodiazepines and possibility of needing to intubate the patient placement on mechanical ventilator. Blood gas has been obtained showing pO2 of 85, pCO2 of 33, pH of 7.51 this was done on FiO2 of 28%, patient is breathing fairly comfortably, does not appear to be in any acute distress, head of the bed is up 35, he is currently on 2 L of oxygen, his pulse ox is 97%. No coughing or wheezing. He continues on empiric antibiotics. On today's evaluation of a 2020, the patient is essentially the same. No major improvement in his underlying mental status. The patient remains encephalopathic. He is unable to say. This is 50 gases some few words such as yes or no. Unable to follow any commands. His been having also episodes of fever. Based on all this, the patient underwent a lumbar puncture suspecting encephalitis. No neck stiffness. The lumbar puncture was completed and the patient was found to have elevated CSF protein. The total white cell count was 18. The patient had 85% polys tear cells and 50% mononuclear cells. The CSF protein was 226. Glucose is a 69. Patient was also covered with broad-spectrum antibiotics including a combination of Rocephin and vancomycin. The patient is also on acyclovir IV 1 g 3 times a day. The white cell count is 11.5 with hemoglobin of 12.1. INR is at 1.4. BUN is at 4 with a creatinine of 0.5. Rest of the electrodes are within normal limits. No seizure activity has been noted. EEG was done and was quite abnormal due to background slowing and moderate to severe slowing of the EEG activity suggestive of generalized cerebral dysfunction. Neurology is on the case for now. In terms of alcohol withdrawal, delirium tremors, the patient is currently on Ativan based on the [facility] protocol. The patient is also on D5 half-normal saline today to 100 mL an hour. The patient will be transferred to the intensive care unit for further monitoring. 03/19/2021, the patient is still encephalopathic. Slightly more rested and more awake compared to yesterday. Nevertheless he remains encephalopathic. No neck stiffness. No headaches. MRI of the brain was done and showed no acute abnormalities. As stated earlier, his CSF evaluation was not consistent with bacterial meningitis. HSV by PCR still pending. He remains on vancomycin. He remains on Rocephin. He remains on acyclovir. He is receiving Ativan per [facility] protocol. He is on D5 half-normal saline at the rate of 100 mL an hour. Hemo dynamically stable. Pulse ox is 98% on 2 L of oxygen by nasal cannula. Chest x-ray shows no evidence of any pneumonia. Note that his urine drug screen was positive for benzodiazepines and marijuana. His blood work from today shows a WD second of 11.8 with hemoglobin of 12.3. Platelets is at 193. Electrolytes are normal. Renal functions are normal. Hepatic function is normal. Albumin is at 2.1 with a protein of 4.8. On today's evaluation of a 03/20/2021, the patient is breathing comfortably. The patient got transferred out of the intensive care unit. Currently is on room air oxygen. He remains somewhat encephalopathic. No agitation. No other significant respiratory distress. No significant tachycardia. Lumbar puncture came back negative for any bacterial growth. Lumbar puncture was also negative for HSV by PCR. Acyclovir was discontinued. There was a concern that the p atient may have a septic joint. He was seen by orthopedic surgery. He is left ankle was drained. A total of 60 mL of fluid was removed from the ankle and was sent to lab. Patient was kept on antibiotics and patient is currently on a combination of cefepime and vancomycin. Cultures are all negative the white cell count. The white cell count is at 11.8. INR is at 1.4 with a PT of 13.8. His creatinine today is 0.7. MRI of the lumbar spine was done and showed no evidence of any discitis. No significant disc space narrowing. There is evidence of no fracture. There is evidence of multiple. Mild joint facet arthropathy. On 03/21/2021 patient seen in follow-up on selective care unit, he is much more awake today, is responding verbally, he knows he is in the hospital, he is oriented to person, denies any acute distress. He denies heavy alcohol intake. He states he fell at home, and he was stone sober at the time. Currently he is on room air, with pulse ox of 97%, vital signs have been stable, his been afebrile. He remains on cefepime and vancomycin. His chest x-ray on 03/11/2021 showed a subsegmental basilar atelectatic changes. His CSF cultures have shown no growth after 3 days, blood culture from 03/11/2021 showed Staphylococcus epidermidis likely related to skin contamination, left ankle wound culture has shown no growth. His vital signs have been stable, he denies any difficulty breathing, no cough, no phlegm production, no chest discomfort, today's labs show a white blood cell count of 8.6, hemoglobin of 11.5. MRI of the spine showed no evidence of discitis, no disc space narrowing, no fracture. There was a multilevel mild facet arthropathy and mild lateral recess stenosis, those multilevel mild posterior disc bulging without spinal stenosis. on 03/22/2021 patient seen in follow-up on selective care unit, he is awake and alert, in no acute distress, room air pulse ox is 97%, he is breathing comfortably, no cough, no complaints of chest discomfort, normal production, still is having fevers, T-max in the last 24 hours is 102F. his follow-up blood culture from 03/20/2021 showed no growth, patient remains on cefepime and vancomycin. today's labs have been reviewed, self liquid silk on is to 11.5, hemoglobin is 12.1. sodium is 140, potassium 3.1, this was replaced per protocol, chloride is 10 9, BUN is 4, creatinine 0.36, pro calcitonin level is 50. patient is a combination of cefepime and vancomycin. orthopedic surgery is following, patient has left ankle pain , CT of the left lower extremity showed soft tissue swelling and calcaneal spurring. no altered mentation, patient awake and alert and oriented times 3. On 03/23/2021 patient seen in follow-up. he is resting in bed, in no acute distress. Denies any difficulty breathing, room air pulse ox is 99%, his been afebrile, vital signs have been stable. No fever or chills. No cough, no chest discomfort. Continues on antibiotics, his pro calcitonin level quite elevated at 50.22. No clear evidence of pneumonia. Blood culture from 03/19/2021 shows Staphylococcus epidermidis. Today's labs have been reviewed, showing white blood cell count of 15.9, hemoglobin of 11.7, potassium is 3.4, CO2 is 20, tested electrolytes were within normal limits, B1 is 5, creatinine 0.30. His appetite has been poor, and he is been consuming very little of his meals. On 03/24/2021 patient is seen in follow-up on selective care unit, he is awake and alert, in no acute distress, he sitting up and he did do bed, he is working with physical therapy, he is breathing comfortably, room air pulse ox is 98%, T- max in the last 24 hours was 99.8F, blood pressure is been stable. Patient had left ankle cellulitis aspirated would removal of 6 mL of serous joint fluid. Remains on vancomycin, blood cultures were positive for Staphylococcus aureus. From pulmonary perspective he denies any cough, no phlegm production. CT chest showed no evidence of pneumonia or aspiration pneumonia, small left apical density in the follow-up was recommended, small pleural effusions. No new labs today Objective - Vital Signs Vital signs: Vital Signs Temp 98.9 F 03/24/21 08:00 Pulse 112 H 03/24/21 08:00 Resp 18 03/24/21 08:00 BP 156/68 03/24/21 08:00 Pulse Ox 98 03/24/21 08:00 Intake & Output 03/23/21 03/24/21 03/24/21 18:59 06:59 18:59 Intake Total 960 Output Total 1200 Balance 960 -1200 Weight 106 kg 60 kg Intake: Oral 960 Output: Urine 1200 Other: Voiding Method Indwelling Catheter Indwelling Catheter Indwelling Catheter # Bowel Movements 3 1 - Exam GENERAL EXAM: Alert, much more responsive on today's exam, 55-year-old male, on room air with a pulse ox of 97%, with bruising on his face, arms and legs and over left eye, oriented to person and place comfortable in no apparent distress. HEAD: Normocephalic/atraumatic. EYES: Normal reaction of pupils, equal size. Conjunctiva pink, sclera white. NOSE: Clear with pink turbinates. THROAT: No erythema or exudates. NECK: No masses, no JVD, no thyroid enlargement, no adenopathy. CHEST: No chest wall deformity. Symmetrical expansion. LUNGS: Equal air entry with no crackles, wheeze, rhonchi or dullness. CVS: Regular rate and rhythm, normal S1 and S2, no gallops, no murmurs, no rubs ABDOMEN: Soft, nontender. No hepatosplenomegaly, normal bowel sounds, no guarding or rigidity. EXTREMITIES: No clubbing, no edema, no cyanosis, 2+ pulses and upper and lower extremities. MUSCULOSKELETAL: Muscle strength and tone normal. SPINE: No scoliosis or deformity SKIN: No rashes, abrasions and bruising on bilateral lower extremities, arms, and over the left eye CENTRAL NERVOUS SYSTEM: Alert and oriented -2. No focal deficits, tone is normal in all 4 extremities. PSYCHIATRIC: Alert and oriented -2. Appropriate affect. Intact judgment and insight. - Labs CBC & Chem 7: 03/23/21 06:41 03/23/21 06:41 Labs: Abnormal Lab Results - Last 24 Hours (Table) 03/23/21 03/23/21 Range/Units 11:38 16:51 POC Glucose (mg/dL) 109 H 102 H (75-99) mg/dL Microbiology - Last 24 Hours (Table) 03/20/21 17:40 Blood Culture - Preliminary Blood No Growth after 72 hours 03/19/21 11:55 Anaerobic Culture - Final Ankle - Left 03/18/21 19:00 Anaerobic Culture - Final Knee - Right 03/19/21 14:59 Blood Culture Gram Stain - Final Blood Blood Culture - Final Staphylococcus epidermidis 03/17/21 09:05 Blood Culture - Final Blood No Growth after 144 hours Assessment and Plan Plan: Assessment: #1. Acute hypoxic respiratory failure related to atelectasis, and possibility of right basilar pneumonia is not completely excluded, chest x-ray showing right basilar patchy infiltrate. Currently patient is on room air, follow-up chest x- ray showed subsegmental basilar atelectatic changes. No clear evidence of pneumonia. No pulmonary symptoms #2. Altered mental status, related to acute delirium tremens. CT of the head and cervical spine showing no acute pathology, CSF cultures remain negative. HSV by PCR was negative. Cultures remain negative, MRI of the brain was ne gative, no seizure activity. Her mentation is much improved, and patient is oriented to person and place #3. History of prescription drug abuse, alcohol abuse #4. Falls at home, related to altered mental status #5. Multiple skin abrasions, including left eye bruising, with a CT of the face showing no acute fractures #6. Hypernatremia related to dehydration free water deficit, improved with IV fluids #7. Hypertension #8. GERD/reflux #9. Anxiety #10. Left ankle cellulitis, status post aspiration #11. Blood culture positive for Staphylococcus epidermidis, likely contaminant. Remains on vancomycin #12. Small left apical density seen on the CT chest without contrast dated possibly related to atelectasis and underlying mass is being considered. This will be followed on an outpatient basis Plan: Stable from pulmonary perspective No cough, no phlegm production, No fever Patient is on room air CT of the chest has been reviewed This will be followed up on an outpatient basis after discharge I performed a history & physical examination of the patient and discussed their management with my nurse practitioner, Naila Pryor. I reviewed the nurse practitioner's note and agree with the documented findings and plan of care. Lung sounds are positive for diffuse wheezes throughout the lung licea. The findings and the impression was discussed with the patient. I attest to the documentation by the nurse practitioner. Time with Patient: Less than 30
--- NOTE | 2021-03-24 11:00 | P.PN ---
<Ivan Maharaj - Last Filed: 03/24/21 15:05> Subjective Progress Note Date: 03/24/21 Hospital course: Patient is a 55-year-old male with a past medical history of EtOH abuse. He p resented to the hospital on 03/14/21 after being found delirious and confused by his neighbor at home. Patient was reportedly found laying on the floor covered in his own feces with empty alcohol bottles surrounding him. Patient presented to the hospital with multiple bruises and abrasions in different stages of healing. UDS positive for marijuana and benzodiazepines. EtOH level was less than 10. Patient was initially found to have hypernatremia with sodium of 152, hyponatremia with potassium of 3.2, hyperchloremia with chloride of 114 and elevated creatinine kinase of 999. He was admitted for acute metabolic encephalopathy with hallucinations and EtOH withdrawal, rhabdomyolysis, and se psis without sepsis shock. Patient has underwent multiple labs and imaging see below. Currently admitted under our services with consultation to pulmonology, infectious disease, neurology, and orthopedic surgery. Labs and imaging: Initial blood culture showing no results after 144 hours, CSF fluid negative wound culture right knee negatives wound culture left ankle preliminary results negative, 1 out of 2 blood culture results repeated on 03/19/21 positive for Staphylococcus epidermidis, possibly contaminated, and repeat blood culture drawn on 03/20/21 showing no growth after 24 hours. TSH 1.770. Pro-calcitonin 50.22 and CRP of 8.1. Chest x-ray completed 03/14/21 revealed minimal subsegmental atelectasis at the right lung base without change. CT head and cervical spine completed 03/14/21 negative for acute intercranial abnormality with spondylitic changes to cervical spine with no acute fractures or abnormalities. CT facial bones without contrast showing evidence of old blowout fracture on the floor of the left bony orbit with reported displacement of 4 mm and is negative for acute fractures. X-ray right elbow olecranon process spur formation with posterior soft tissue swelling negative for acute fractures. Bilateral carotid Dopplers negative for hemodynamically significant internal carotid artery stenosis Venous Doppler left lower extremity negative for DVT. X-ray left ankle negative for acute fracture. MRI brain with and without contrast showing mild atrophy with mild subependymal white matter increased signal around the lateral ventricles measuring up to 5 mm in thickness no evidence of cortical infarct. MRI lumbar spine with and without contrast showing no evidence of discitis, no significant disc space narrowing or acute fractures. Multilevel mild facet arthroplasty and mild lateral recess stenosis with multilevel mild posterior disc bulging without spinal stenosis. CT left lower extremity showing chronic changes with soft tissue swelling and calcaneal spurring, negative for acute fracture. 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 Physical exam: 03/22/21: Patient seen and fully evaluated at the bedside this morning. Patient alert to self only upon examination, he was confused to time, place, and situation. Even with direction, patient was unable to state that he was in the hospital. He continues to be febrile with high temperature over the past 24 hours of 102.0F. He remains on vancomycin and cefepime. Infectious disease, pulmonary, neurology, and orthopedic surgery following. Pro-calcitonin 50.22 and CRP of 8.1. 03/23/21: Patient was seen and fully evaluated at the bedside this morning he was sitting up on the side of the bed working with physical therapy. The patient had no difficulties sitting at the edge of the bed and was able to stand with assistance for 2 minutes prior to sitting back down. Patient reports continued pain in his lower extremities increased upon standing. He was much more alert this morning. Patient able to state full name, spell his first name and then spell it backwards, read the clock to tell us what time it was, was able to state that he was in the hospital and it is 2020. He denied having any headache, lightheadedness, dizziness, chest pain, palpitations, shortness of breath, abdominal pain, nausea, vomiting, or any other complaints at this time other than pain in his lower extremities. Morning labs reviewed in patient p ositive for hypokalemia with potassium of 3.4. 03/24/21: Patient was seen and fully evaluated the bedside this morning. His condition seemed to decline from yesterday as he was much more alert and oriented yesterday when compared to today, patient currently alert to person and place only but confused to time and situation. He is having visual hallucinations as he states he sees his father standing outside his window. Physical therapy reported patient was not even able to stand today and upon sitting him up, he just threw himself backwards multiple times. Patient was also noted to have abdominal pursed lipped breathing, his respirations were 24- 28 breaths per minute and oxygen saturation was maintained 97% on room air. Skin was warm and dry. Previous fevers have improved and patient's highest temperature over the past 48 hours was 99.8F. When asked the patient whether or not he was experiencing shortness of breath, chest pain, palpitations, abdominal pain, nausea, or any other pain or discomfort..he denied. However he continued to have pursed lipped breathing with use of abdominal muscles. This is a new finding and RN at bedside stated patient was not doing earlier this morning. Orders placed for repeat CXR, VBG, D-dimer, repeat Procalcitonin, CRP, CBC, and BMP. Discussed assessment findings with pulmonary, recommended D-dimer and further evaluation of lower extremities. Hemodynamically pt is stable. Abdominal pursed lipped breathing spontaneously subsided after approximately 20 minutes and respirations back to baseline regular, even, and unlabored. Pt remains tachycardic with HR 112. VBG revealed patient in respiratory alkalosis with pH 7.54, pCO2 25, and bicarb of 21. D-dimer elevated at 3.30. Order placed for stat CTA chest to rule out PE. Vital signs reviewed and stable with the exception of mild tachycardia with a heart rate of 112. General: Nontoxic, no distress and appears stated age. Derm: Skin warm and dry, normal coloration for ethnicity. Multiple bruises and abrasions covering upper and lower extremities in different stages of healing. red rash to buttocks Head: Atraumatic, normocephalic and symmetric. Eyes: No lid lag, and anicteric sclera. Slight swelling and bruising surrounding left orbital region. Mouth: No lip lesions, mucus membranes moist Cardiovascular: Regular rhythm and tachycardic rate, no murmur, positive posterior tibial pulses bilaterally, and cap refill < 2 seconds. Lungs: Respirations even, regular, and unlabored on room air. Lungs CTA bilaterally, no rhonchi, no rales, no wheezing, and no accessory muscle usage. GI/: soft, nontender to palpation, no guarding, no appreciable organomegaly. Rendon catheter in place. Ext: ROM intact. No gross muscle atrophy, no edema, no contractures. erythema and swelling to BLE worse on left. Neuro/Psych: Speech clear, face symmetrical and CN II-XII grossly intact. Patient able to follow limited commands, alert to person and place only today, confused to time and situation. Pupils equal and round. Patient with visual hallucinations reporting that he sees has father standing in his window. Assessment and Plan of Care: Alcohol abuse with alcohol withdrawal syndrome Delirium tremens Rhabdomyolysis Acute Metabolic Encephalopathy with hallucinations -Benzodiazepines per CIWA scale -IV fluid hydration, Thiamine 100 mg twice daily -Seizure precautions, Fall precautions -Computed tomography scan of the head showed no acute findings. -MRI of the brain was no acute finding -Consulted neurology and psychiatry for further evaluation -EEG was abnormal with generalized cerebral dysfunction and evidence of toxic metabolic encephalopathy -Treatment of underlying infectious process, continue IV antibiotics cefepime and vancomycin pending further recommendations by infectious disease Acute metabolic encephalopathy, improving Sepsis without septic shock Fever, unclear etiology Concerns about meningitis, ruled out Bacteremia, contamination with staph epidermidis Concerns of RLL Aspiration Pneumonia, questionable -Initial blood culture showing no results hours, CSF fluid negative wound culture right knee negatives wound culture left ankle preliminary results negative, 1 out of 2 blood culture results repeated on 03/19/21 positive for Staphylococcus epidermidis, possibly contaminated, and repeat blood culture drawn on 03/20/21 showing no growth after 24 hours. -TSH 1.770. -Pro-calcitonin 50.22 and CRP of 8.1. -Started on broad spectrum antibiotic with vancomycin, ceftriaxone, and acyclovir for suspected meningitis on presentation. Antibiotic is been adjusted by infectious disease currently on IV cefepime and vancomycin. -CSF fluid not consistent with bacterial meningitis. 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 -Changed oral thiamine to IV thiamine 100 mg twice daily. -Treatment of underlying infectious process, continue IV antibiotics cefepime and vancomycin pending further recommendations by infectious disease -MRI of cervical and thoracic spine with and without contrast. Hypokalemia, resolved -We will continue to monitor with repeat a.m. labs. Poor living condition Recurrent episodes of hospital admission for alcohol abuse Major life stressors with possible major depression -We will reconsult psychiatry when mentation improves -human services worker consultation Macrocytic anemia mild, Most likely secondary to alcohol abuse No reported GI bleeding -Multiple skin abrasions and bruising in multiple stages of healing -Left eye bruising -No acute fractures identified Hypernatremia, resolved status post administration of IV fluids. -We will continue to monitor with repeat a.m. labs. CODE STATUS: Full code DVT prophylaxis: SCDs Discussed with: Patient and RN Anticipated discharge date: Clinical course to determine Anticipated discharge place: Home A total of 45 minutes was spent on the care of this complex patient more than 50% of the time was spent in counseling and care coordination. Objective - Vital Signs Vital signs: Vital Signs Temp 99.8 F H 03/24/21 04:00 Pulse 110 H 03/24/21 04:00 Resp 18 03/24/21 04:00 BP 124/75 03/24/21 04:00 Pulse Ox 96 03/24/21 04:00 Intake & Output 03/23/21 03/24/21 03/24/21 18:59 06:59 18:59 Intake Total 960 Output Total 1200 Balance 960 -1200 Weight 106 kg 60 kg Intake: Oral 960 Output: Urine 1200 Other: Voiding Method Indwelling Catheter Indwelling Catheter # Bowel Movements 3 1 - Labs CBC & Chem 7: 03/24/21 10:25 03/24/21 10:25 Labs: Abnormal Lab Results - Last 24 Hours (Table) 03/23/21 03/23/21 Range/Units 11:38 16:51 POC Glucose (mg/dL) 109 H 102 H (75-99) mg/dL Microbiology - Last 24 Hours (Table) 03/20/21 17:40 Blood Culture - Preliminary Blood No Growth after 72 hours 03/19/21 11:55 Anaerobic Culture - Final Ankle - Left 03/18/21 19:00 Anaerobic Culture - Final Knee - Right 03/19/21 14:59 Blood Culture Gram Stain - Final Blood Blood Culture - Final Staphylococcus epidermidis 03/17/21 09:05 Blood Culture - Final Blood No Growth after 144 hours <Melva Cline - Last Filed: 03/24/21 18:55> Subjective Patient seen and examined independently. Patient was also seen by Ivan Maharaj NP and case was discussed. I am in agreement with subjective, physical exam, assessment and plan as written above and amended below. Patient is significantly confused. He denies any pain, no nausea or vomiting. Confused and attempting to drink applesauce out of. General: non toxic, no distress, appears at stated age Derm: Excoriation bilateral lower extremities, multiple bruises in various stages of healing warm, dry Head: atraumatic, normocephalic, symmetric Eyes: EOMI, no lid lag, anicteric sclera Mouth: no lip lesion, mucus membranes moist Cardiovascular: S1S2 reg, no murmur, positive posterior tibial pulse bilateral, Lungs: Decreased breath sounds bilateral, no rhonchi, no rales , no accessory muscle use Abdominal: soft, nontender to palpation, no guarding, no appreciable organomegaly Ext: no gross muscle atrophy, no edema, no contractures Neuro: CN II-XI grossly intact, no focal neuro deficits Psych: Alert, oriented to self, moving all of her bed and appears fidgety Objective - Vital Signs Vital signs: Vital Signs Temp 98.8 F 03/24/21 16:00 Pulse 105 H 03/24/21 16:00 Resp 18 03/24/21 16:00 BP 135/89 03/24/21 16:00 Pulse Ox 98 03/24/21 16:00 Intake & Output 03/23/21 03/24/21 03/24/21 18:59 06:59 18:59 Intake Total 960 570 Output Total 1200 Balance 960 -1200 570 Weight 106 kg 60 kg Intake: Intake, IV Titration 50 Amount Thiamine 100 mg In Sodium 50 Chloride 0.9% 50 ml @ 100 mls/hr IVPB Q12HR [facility] Rx#:[id number] Oral 960 520 Output: Urine 1200 Other: Voiding Method Indwelling Catheter Indwelling Catheter Indwelling Catheter # Bowel Movements 3 1 3 - Labs CBC & Chem 7: 03/24/21 10:25 03/24/21 10:25 Labs: Abnormal Lab Results - Last 24 Hours (Table) 03/24/21 03/24/21 03/24/21 Range/Units 10:25 10:25 10:25 WBC 15.4 H (3.8-10.6) k/uL RBC 3.31 L (4.30-5.90) m/uL Hgb 11.3 L (13.0-17.5) gm/dL Hct 32.6 L (39.0-53.0) % RDW 15.7 H (11.5-15.5) % Plt Count 451 H (150-450) k/uL D-Dimer (<0.60) mg/L FEU VBG pH 7.54 H (7.31-7.41) VBG pCO2 25 L (37-51) mmHg VBG HCO3 21 L (24-28) mmol/L Chloride 108 H (98-107) mmol/L Carbon Dioxide 21 L (22-30) mmol/L BUN 5 L (9-20) mg/dL Creatinine 0.31 L (0.66-1.25) mg/dL POC Glucose (mg/dL) (75-99) mg/dL Calcium 8.2 L (8.4-10.2) mg/dL C-Reactive Protein (<1.0) mg/dL 03/24/21 03/24/21 03/24/21 Range/Units 11:07 11:07 11:41 WBC (3.8-10.6) k/uL RBC (4.30-5.90) m/uL Hgb (13.0-17.5) gm/dL Hct (39.0-53.0) % RDW (11.5-15.5) % Plt Count (150-450) k/uL D-Dimer 3.30 H (<0.60) mg/L FEU VBG pH (7.31-7.41) VBG pCO2 (37-51) mmHg VBG HCO3 (24-28) mmol/L Chloride (98-107) mmol/L Carbon Dioxide (22-30) mmol/L BUN (9-20) mg/dL Creatinine (0.66-1.25) mg/dL POC Glucose (mg/dL) 100 H (75-99) mg/dL Calcium (8.4-10.2) mg/dL C-Reactive Protein 5.1 H (<1.0) mg/dL Microbiology - Last 24 Hours (Table) 03/20/21 17:40 Blood Culture - Preliminary Blood No Growth after 72 hours 03/19/21 11:55 Anaerobic Culture - Final Ankle - Left
--- NOTE | 2021-03-24 11:15 | XR ---
EXAMINATION TYPE: XR chest 1V portable DATE OF EXAM: 03/24/2021 CLINICAL HISTORY: Difficulty breathing and weakness. TECHNIQUE: Single AP portable upright view of the chest is obtained. COMPARISON: Chest CT from one day earlier and older studies FINDINGS: Persistent low lung volumes and elevated right hemidiaphragm. Persistent bibasilar linear scarring and/or atelectasis. No pneumothorax seen bilaterally. No enlarging pleural effusions present . Cardiac silhouette size stable and upper limits of normal. Osseous structures are intact. IMPRESSION: Low lung volumes and elevated right hemidiaphragm with bibasilar linear scarring and/or a telectasis. No new suspicious focal infiltrate.
[2021-03-24 11:19] LABS: HCT 32.6 % (39.0-53.0); HGB 11.3 gm/dL (13.0-17.5); MCH 34.1 pg (25.0-35.0); MCHC 34.6 g/dL (31.0-37.0); MCV 98.4 fL (80.0-100.0); Macrocytosis Slight; Mean Platelet Volume 7.7; Platelet Count 451 k/uL (150-450); RBC 3.31 m/uL (4.30-5.90); RDW 15.7 % (11.5-15.5); WBC 15.4 k/uL (3.8-10.6)
[2021-03-24 11:20] LABS: African American GFR (CKD) >90 (>60 ml/min/1.73 sqM); Anion Gap 9 mmol/L; Blood Urea Nitrogen 5 mg/dL (9-20); Calcium 8.2 mg/dL (8.4-10.2); Carbon Dioxide 21 mmol/L (22-30); Chloride 108 mmol/L (98-107); Glucose 95 mg/dL (74-99); Magnesium 1.8 mg/dL (1.6-2.3); Non-African American GFR(CKD) >90 (>60 ml/min/1.73 sqM); Sodium 138 mmol/L (137-145)
[2021-03-24 11:48] LABS: Glucose,Whole Blood 100 mg/dL (75-99)
[2021-03-24] MEDS: ACETAMINOPHEN TAB 325 MG TAB PO PRN ×2 (11:51→21:57)
--- NOTE | 2021-03-24 16:44 | PN ---
PROGRESS NOTE DATE OF SERVICE: 03/24/2021 REASON FOR FOLLOWUP: Fever, possible cellulitis. INTERVAL HISTORY: The patient is afebrile. The patient is currently breathing comfortably on room air. Denies having any chest pain, shortness of breath or cough. No abdominal pain. Did have some diarrhea. PHYSICAL EXAMINATION: Blood pressure is 125/86, pulse of 130, temperature 99. He is 98% on room air. GENERAL DESCRIPTION: General description is a middle-aged male lying in bed in no distress. RESPIRATORY SYSTEM: Unlabored breathing. Clear to auscultation anteriorly. HEART: S1, S2. Regular rate and rhythm. ABDOMEN: Soft. No tenderness. LABS: Hemoglobin is 11. , white count 15.4, BUN of 5, creatinine 0.31. DIAGNOSTIC IMPRESSION AND PLAN: Patient with a fever and elevated white count in this patient who did have extensive workup, including CT of abdomen and pelvis, lower extremity CT, MRI of the lumbar spine, MRI of the chest, without evidence for any obvious focus of infection. Patient is currently on antibiotic. Vancomycin to continue while monitoring his clinical course closely. Continue with supportive care. MMODL / IJN: [id number] /
--- NOTE | 2021-03-24 16:52 | CT ---
EXAMINATION TYPE: CT chest angio for PE DATE OF EXAM: 03/24/2021 COMPARISON: Chest CT from yesterday. HISTORY: respiratory alkalosis with elevated d-dimer CT DLP: 834.8 mGycm Automated exposure control for dose reduction was used. CONTRAST: CTA Chest for pulmonary embolism performed with with IV Contrast, patient injected with 100 mL of Iso josé miguel 370. MIP images are created and reviewed. FINDINGS: LUNGS: Persistent small bilateral pleural effusions and associated compressive atelectasis in the bas es. Some respiratory motion artifact on current study. Persistent irregularity approximately 1.9 cm f ocus of groundglass opacity in the periphery left upper lobe axial image 31. Elevated right hemidiaph ragm redemonstrated. MEDIASTINUM: There is suboptimal study with near equal contrast in the right and left heart systems b ut no convincing CT evidence for acute pulmonary embolism. There are no new greater than 1 cm hilar or mediastinal lymph nodes. Heart size stable and within normal limits. No pericardial effusion is s een. OTHER: Diffuse fatty infiltration of liver redemonstrated. Multilevel spurring thoracic spine again seen. Scoliotic curvature redemonstrated. IMPRESSION: Suboptimal study without CT evidence for acute pulmonary embolism. Lateral left upper hemant g groundglass opacity could reflect acute infectious process. No significant change from one day rosalia ier. Stable small bilateral pleural effusions noted.
[2021-03-24 18:19] LABS: Glucose,Whole Blood 80 mg/dL (75-99)
[2021-03-25 00:03] LABS: Glucose,Whole Blood 99 mg/dL (75-99)
[2021-03-25] MEDS: PANTOPRAZOLE 40 MG TABLET PO SCH (06:13)
[2021-03-25 06:18] LABS: Glucose,Whole Blood 104 mg/dL (75-99)
[2021-03-25 07:26] LABS: African American GFR (CKD) >90 (>60 ml/min/1.73 sqM); Anion Gap 12 mmol/L; Blood Urea Nitrogen 4 mg/dL (9-20); Calcium 8.4 mg/dL (8.4-10.2); Carbon Dioxide 17 mmol/L (22-30); Chloride 107 mmol/L (98-107); Glucose 96 mg/dL (74-99); Magnesium 1.8 mg/dL (1.6-2.3); Non-African American GFR(CKD) >90 (>60 ml/min/1.73 sqM); Sodium 136 mmol/L (137-145)
[2021-03-25 07:47] LABS: Potassium 4.9 mmol/L (3.5-5.1)
[2021-03-25] MEDS: THIAMINE 100 MG in SODIUM CHLORIDE 0.9% 50 ML IVPB SCH ×2 (07:59→21:11)
[2021-03-25 08:13] LABS: HCT 34.7 % (39.0-53.0); HGB 11.1 gm/dL (13.0-17.5); MCH 32.4 pg (25.0-35.0); MCV 101.1 fL (80.0-100.0); Macrocytosis Slight; Mean Platelet Volume 7.5; Platelet Count 498 k/uL (150-450); RBC 3.43 m/uL (4.30-5.90); RDW 15.7 % (11.5-15.5); WBC 14.2 k/uL (3.8-10.6)
[2021-03-25] MEDS: VANCOMYCIN 1,500 MG in SODIUM CHLORIDE 0.9% 250 ML IVPB SCH ×3 (08:36→22:58)
--- NOTE | 2021-03-25 09:07 | P.PN ---
Subjective Progress Note Date: 03/25/21 Principal diagnosis: Left ankle pain, cellulitis Patient was seen at bedside this morning on cardiac floor. Patient is able to respond to verbal questions today. Patient is lying semirecumbent in bed and says he is mostly having pain in the left palacios region when he dorsiflexes his left ankle. When patient was asked to bend left ankle he moans in pain. Patient denies chest pain, fever, shortness breath, nausea, vomiting, change in vision, loss of bowel/bladder control. Objective - Vital Signs Vital signs: Vital Signs Temp 99.3 F 03/25/21 08:00 Pulse 113 H 03/25/21 08:00 Resp 18 03/25/21 08:00 BP 140/91 03/25/21 08:00 Pulse Ox 98 03/25/21 08:00 Intake & Output 03/24/21 03/25/21 03/25/21 18:59 06:59 18:59 Intake Total 570 240 Output Total 1150 Balance 570 -910 Weight 104 kg Intake: Intake, IV Titration 50 Amount Thiamine 100 mg In Sodium 50 Chloride 0.9% 50 ml @ 100 mls/hr IVPB Q12HR [facility] Rx#:[id number] Oral 520 240 Output: Urine 1150 Other: Voiding Method Indwelling Catheter Indwelling Catheter # Bowel Movements 3 2 - Exam left ankle: Left ankle examined at bedside this morning. When left ankle is dorsiflexed patient moans in pain. The area of erythema seems to be less compared to yesterday around the ankle. There is still some swelling around the foot and ankle. DP pulses intact. Cap refill under 3 seconds. - Labs CBC & Chem 7: 03/25/21 07:37 03/25/21 06:36 Labs: Abnormal Lab Results - Last 24 Hours (Table) 03/24/21 03/24/21 03/24/21 Range/Units 10:25 10:25 10:25 WBC 15.4 H (3.8-10.6) k/uL RBC 3.31 L (4.30-5.90) m/uL Hgb 11.3 L (13.0-17.5) gm/dL Hct 32.6 L (39.0-53.0) % MCV (80.0-100.0) fL RDW 15.7 H (11.5-15.5) % Plt Count 451 H (150-450) k/uL D-Dimer (<0.60) mg/L FEU VBG pH 7.54 H (7.31-7.41) VBG pCO2 25 L (37-51) mmHg VBG HCO3 21 L (24-28) mmol/L Sodium (137-145) mmol/L Chloride 108 H (98-107) mmol/L Carbon Dioxide 21 L (22-30) mmol/L BUN 5 L (9-20) mg/dL Creatinine 0.31 L (0.66-1.25) mg/dL POC Glucose (mg/dL) (75-99) mg/dL Calcium 8.2 L (8.4-10.2) mg/dL C-Reactive Protein (<1.0) mg/dL Procalcitonin (0.02-0.09) ng/mL 03/24/21 03/24/21 03/24/21 Range/Units 11:07 11:07 11:07 WBC (3.8-10.6) k/uL RBC (4.30-5.90) m/uL Hgb (13.0-17.5) gm/dL Hct (39.0-53.0) % MCV (80.0-100.0) fL RDW (11.5-15.5) % Plt Count (150-450) k/uL D-Dimer 3.30 H (<0.60) mg/L FEU VBG pH (7.31-7.41) VBG pCO2 (37-51) mmHg VBG HCO3 (24-28) mmol/L Sodium (137-145) mmol/L Chloride (98-107) mmol/L Carbon Dioxide (22-30) mmol/L BUN (9-20) mg/dL Creatinine (0.66-1.25) mg/dL POC Glucose (mg/dL) (75-99) mg/dL Calcium (8.4-10.2) mg/dL C-Reactive Protein 5.1 H (<1.0) mg/dL Procalcitonin 10.40 H (0.02-0.09) ng/mL 03/24/21 03/25/21 03/25/21 Range/Units 11:41 06:10 06:36 WBC (3.8-10.6) k/uL RBC (4.30-5.90) m/uL Hgb (13.0-17.5) gm/dL Hct (39.0-53.0) % MCV (80.0-100.0) fL RDW (11.5-15.5) % Plt Count (150-450) k/uL D-Dimer (<0.60) mg/L FEU VBG pH (7.31-7.41) VBG pCO2 (37-51) mmHg VBG HCO3 (24-28) mmol/L Sodium 136 L (137-145) mmol/L Chloride (98-107) mmol/L Carbon Dioxide 17 L (22-30) mmol/L BUN 4 L (9-20) mg/dL Creatinine 0.30 L (0.66-1.25) mg/dL POC Glucose (mg/dL) 100 H 104 H (75-99) mg/dL Calcium (8.4-10.2) mg/dL C-Reactive Protein (<1.0) mg/dL Procalcitonin (0.02-0.09) ng/mL 03/25/21 Range/Units 07:37 WBC 14.2 H (3.8-10.6) k/uL RBC 3.43 L (4.30-5.90) m/uL Hgb 11.1 L (13.0-17.5) gm/dL Hct 34.7 L (39.0-53.0) % MCV 101.1 H (80.0-100.0) fL RDW 15.7 H (11.5-15.5) % Plt Count 498 H (150-450) k/uL D-Dimer (<0.60) mg/L FEU VBG pH (7.31-7.41) VBG pCO2 (37-51) mmHg VBG HCO3 (24-28) mmol/L Sodium (137-145) mmol/L Chloride (98-107) mmol/L Carbon Dioxide (22-30) mmol/L BUN (9-20) mg/dL Creatinine (0.66-1.25) mg/dL POC Glucose (mg/dL) (75-99) mg/dL Calcium (8.4-10.2) mg/dL C-Reactive Protein (<1.0) mg/dL Procalcitonin (0.02-0.09) ng/mL Microbiology - Last 24 Hours (Table) 03/20/21 17:40 Blood Culture - Preliminary Blood No Growth after 96 hours Assessment and Plan Assessment: Left ankle pain, cellulitis Plan: 1. Left ankle pain, cellulitis -aspiration was performed Sunday01/17/2021 the left ankle where 6 mL of serous joint fluid was aspirated and sent to lab for culture, Gram stain, crystals, aerobic and anaerobic cultures. Final results for Gram Stain and aerobic cultures of left ankle negative.anaerobic culture negative. CT lower extremity negative and shows some soft tissue swelling and calcaneal spurring. No urgent surgical intervention planned at this time from orthopedic standpoint. Patient stable from an orthopedic standpoint. Orthopedics is signing off at this time. Please do not hesitate to contact us if you have any further questions 2. Appreciate medical management 3. Pain management - stable at this time 4. GI prophylaxis/DVT prophylaxis - Protonix; Mechanical - SCDs 5. PT/OT - weightbearing as tolerated with assistance 6. Appreciate consult Time with Patient: Less than 30
[2021-03-25] MEDS: NYSTATIN 100,000 UNIT/GM OINT 30 GM TUBE TOPICAL SCH ×3 (09:54→22:59)
[2021-03-25] MEDS: FOLIC ACID 1 MG TAB PO SCH (09:54)
[2021-03-25] MEDS: PYRIDOXINE 50 MG TAB PO SCH ×2 (09:54→21:11)
[2021-03-25] MEDS: amLODIPine 5 MG TAB PO SCH ×2 (09:54→21:11)
[2021-03-25] MEDS: lisinopriL 10 MG TAB PO SCH (09:54)
--- NOTE | 2021-03-25 11:41 | P.PN ---
Subjective Progress Note Date: 03/25/21 Principal diagnosis: Altered mental status, aspiration pneumonia, acute EtOH withdrawal This a 55-year-old white male patient who was admitted to the hospital on March 14, 2021 when he was found delirious and confused by his neighbor and his home. Patient was found laying on the floor, in his own feces, he had a bunch alcohol bottles lying around him. he had multiple bruises and abrasions in different stages of healing. He has a hematoma to his left eye , and abrasions on his knees and lower extremities. Tendon has a history of mathews abuse, eats marijuana edibles. Drug screen was positive for marijuana, benzodiazepines. His alcohol level was less than 10. Brain CT showed no acute intracranial abnormality, no fracture, cervical spine, additional spondylotic changes in the cervical spine. CT of the facial bones showed evidence of old fracture of the floor of the left bony orbit, no acute fractures. Initial chest x-ray showed minimal subsegmental atelectasis in the right lung base without change. EKG showed sinus rhythm. Initial blood work showed a white count of 7.8, hemoglobin 12.3, INR of 1.2, sodium was 153, potassium 3.4, chloride is 115, CO2 is 24, B1 and creatinine 0.74, troponin was 0.016. Patient was started on benzodiazepines in the form of Ativan per [facility] protocol. Neurology consultation was obtained. Psychiatric services are following. Patient is on thiamine and folate per [facility] protocol. ABG showed moderate to severe degree of slowing, consistent with toxic metabolic encephalopathy, no epileptiform discharges were seen. This morning patient started spiking fevers with a temp of 101.4F, he is also requiring supplemental oxygen currently at 2 L with a pulse ox of 93-97%, he is receiving Valium and when necessary Ativan. Quite lethargic, confused, he opens eyes to voice, however he is not able to provide any meaningful verbal responses. Today's chest x-ray has been reviewed showing right basilar patchy infiltrate and/or atelectasis. Patient was placed on empiric antibiotics in the form of Rocephin and vancomycin. In view of altered mentation and fever lumbar puncture was requested however anesthesia was unable to perform it because Lovenox was given this morning. We were consulted in view of depressed level of consciousness related to benzodiazepines and possibility of needing to intubate the patient placement on mechanical ventilator. Blood gas has been obtained showing pO2 of 85, pCO2 of 33, pH of 7.51 this was done on FiO2 of 28%, patient is breathing fairly comfortably, does not appear to be in any acute distress, head of the bed is up 35, he is currently on 2 L of oxygen, his pulse ox is 97%. No coughing or wheezing. He continues on empiric antibiotics. On today's evaluation of a 2020, the patient is essentially the same. No major improvement in his underlying mental status. The patient remains encephalopathic. He is unable to say. This is 50 gases some few words such as yes or no. Unable to follow any commands. His been having also episodes of fever. Based on all this, the patient underwent a lumbar puncture suspecting encephalitis. No neck stiffness. The lumbar puncture was completed and the patient was found to have elevated CSF protein. The total white cell count was 18. The patient had 85% polys tear cells and 50% mononuclear cells. The CSF protein was 226. Glucose is a 69. Patient was also covered with broad-spectrum antibiotics including a combination of Rocephin and vancomycin. The patient is also on acyclovir IV 1 g 3 times a day. The white cell count is 11.5 with hemoglobin of 12.1. INR is at 1.4. BUN is at 4 with a creatinine of 0.5. Rest of the electrodes are within normal limits. No seizure activity has been noted. EEG was done and was quite abnormal due to background slowing and moderate to severe slowing of the EEG activity suggestive of generalized cerebral dysfunction. Neurology is on the case for now. In terms of alcohol withdrawal, delirium tremors, the patient is currently on Ativan based on the [facility] protocol. The patient is also on D5 half-normal saline today to 100 mL an hour. The patient will be transferred to the intensive care unit for further monitoring. 03/19/2021, the patient is still encephalopathic. Slightly more rested and more awake compared to yesterday. Nevertheless he remains encephalopathic. No neck stiffness. No headaches. MRI of the brain was done and showed no acute abnormalities. As stated earlier, his CSF evaluation was not consistent with bacterial meningitis. HSV by PCR still pending. He remains on vancomycin. He remains on Rocephin. He remains on acyclovir. He is receiving Ativan per [facility] protocol. He is on D5 half-normal saline at the rate of 100 mL an hour. Hemo dynamically stable. Pulse ox is 98% on 2 L of oxygen by nasal cannula. Chest x-ray shows no evidence of any pneumonia. Note that his urine drug screen was positive for benzodiazepines and marijuana. His blood work from today shows a WD second of 11.8 with hemoglobin of 12.3. Platelets is at 193. Electrolytes are normal. Renal functions are normal. Hepatic function is normal. Albumin is at 2.1 with a protein of 4.8. On today's evaluation of a 03/20/2021, the patient is breathing comfortably. The patient got transferred out of the intensive care unit. Currently is on room air oxygen. He remains somewhat encephalopathic. No agitation. No other significant respiratory distress. No significant tachycardia. Lumbar puncture came back negative for any bacterial growth. Lumbar puncture was also negative for HSV by PCR. Acyclovir was discontinued. There was a concern that the p atient may have a septic joint. He was seen by orthopedic surgery. He is left ankle was drained. A total of 60 mL of fluid was removed from the ankle and was sent to lab. Patient was kept on antibiotics and patient is currently on a combination of cefepime and vancomycin. Cultures are all negative the white cell count. The white cell count is at 11.8. INR is at 1.4 with a PT of 13.8. His creatinine today is 0.7. MRI of the lumbar spine was done and showed no evidence of any discitis. No significant disc space narrowing. There is evidence of no fracture. There is evidence of multiple. Mild joint facet arthropathy. On 03/21/2021 patient seen in follow-up on selective care unit, he is much more awake today, is responding verbally, he knows he is in the hospital, he is oriented to person, denies any acute distress. He denies heavy alcohol intake. He states he fell at home, and he was stone sober at the time. Currently he is on room air, with pulse ox of 97%, vital signs have been stable, his been afebrile. He remains on cefepime and vancomycin. His chest x-ray on 03/11/2021 showed a subsegmental basilar atelectatic changes. His CSF cultures have shown no growth after 3 days, blood culture from 03/11/2021 showed Staphylococcus epidermidis likely related to skin contamination, left ankle wound culture has shown no growth. His vital signs have been stable, he denies any difficulty breathing, no cough, no phlegm production, no chest discomfort, today's labs show a white blood cell count of 8.6, hemoglobin of 11.5. MRI of the spine showed no evidence of discitis, no disc space narrowing, no fracture. There was a multilevel mild facet arthropathy and mild lateral recess stenosis, those multilevel mild posterior disc bulging without spinal stenosis. on 03/22/2021 patient seen in follow-up on selective care unit, he is awake and alert, in no acute distress, room air pulse ox is 97%, he is breathing comfortably, no cough, no complaints of chest discomfort, normal production, still is having fevers, T-max in the last 24 hours is 102F. his follow-up blood culture from 03/20/2021 showed no growth, patient remains on cefepime and vancomycin. today's labs have been reviewed, self liquid silk on is to 11.5, hemoglobin is 12.1. sodium is 140, potassium 3.1, this was replaced per protocol, chloride is 10 9, BUN is 4, creatinine 0.36, pro calcitonin level is 50. patient is a combination of cefepime and vancomycin. orthopedic surgery is following, patient has left ankle pain , CT of the left lower extremity showed soft tissue swelling and calcaneal spurring. no altered mentation, patient awake and alert and oriented times 3. On 03/23/2021 patient seen in follow-up. he is resting in bed, in no acute distress. Denies any difficulty breathing, room air pulse ox is 99%, his been afebrile, vital signs have been stable. No fever or chills. No cough, no chest discomfort. Continues on antibiotics, his pro calcitonin level quite elevated at 50.22. No clear evidence of pneumonia. Blood culture from 03/19/2021 shows Staphylococcus epidermidis. Today's labs have been reviewed, showing white blood cell count of 15.9, hemoglobin of 11.7, potassium is 3.4, CO2 is 20, tested electrolytes were within normal limits, B1 is 5, creatinine 0.30. His appetite has been poor, and he is been consuming very little of his meals. On 03/24/2021 patient is seen in follow-up on selective care unit, he is awake and alert, in no acute distress, he sitting up and he did do bed, he is working with physical therapy, he is breathing comfortably, room air pulse ox is 98%, T- max in the last 24 hours was 99.8F, blood pressure is been stable. Patient had left ankle cellulitis aspirated would removal of 6 mL of serous joint fluid. Remains on vancomycin, blood cultures were positive for Staphylococcus aureus. From pulmonary perspective he denies any cough, no phlegm production. CT chest showed no evidence of pneumonia or aspiration pneumonia, small left apical density in the follow-up was recommended, small pleural effusions. No new labs today On 03/25/2021 patient seen in follow-up on selective care unit, he is resting in bed, he is laying flat in bed, doesn't appear to be any distress, denies any shortness of breath, no cough, breathing comfortably, he is alert and oriented to person and place, disoriented to month and year, but knew the president. This to be less confused on today's exam, lung sounds are clear, no rhonchi, no wheezing. Vital signs have been stable overnight, her pulse ox is 98%, T-max was 99.6 in the last 24 hours. Yesterday his d-dimer came back slightly elevated at 3.3, and chest CTA was completed showing no clear evidence of pulmonary embolism, but this was a suboptimal study. Lung windows showed persistent small bilateral pleural effusions and associated compressive atelectasis at the bases. There was elevation of the right hemidiaphragm again noted. Anpersistent irregularity measuring approximately 1.9 cm of ground glass opacity in the periphery of the left upper lobe. Remains on antibiotics in the form of vancomycin for left ankle cellulitis. The left ankle has been drained by orthopedic surgery, there is some minimal redness, no warmth. Follow blood cultures have been negative at the 96 hour yeni. I'll pro calcitonin is down to 10.4. He is down to 5.1. ID service is following. Objective - Vital Signs Vital signs: Vital Signs Temp 99.3 F 03/25/21 08:00 Pulse 113 H 03/25/21 08:00 Resp 18 03/25/21 08:00 BP 140/91 03/25/21 08:00 Pulse Ox 98 03/25/21 08:00 Intake & Output 03/24/21 03/25/21 03/25/21 18:59 06:59 18:59 Intake Total 570 240 180 Output Total 1150 Balance 570 -910 180 Weight 104 kg 104 kg Intake: Intake, IV Titration 50 Amount Thiamine 100 mg In Sodium 50 Chloride 0.9% 50 ml @ 100 mls/hr IVPB Q12HR [facility] Rx#:[id number] Oral 520 240 180 Output: Urine 1150 Other: Voiding Method Indwelling Catheter Indwelling Catheter Diaper # Bowel Movements 3 2 - Exam GENERAL EXAM: Alert, much more responsive on today's exam, 55-year-old male, on room air with a pulse ox of 97%, with bruising on his face, arms and legs and over left eye, oriented to person and place comfortable in no apparent distress. HEAD: Normocephalic/atraumatic. EYES: Normal reaction of pupils, equal size. Conjunctiva pink, sclera white. NOSE: Clear with pink turbinates. THROAT: No erythema or exudates. NECK: No masses, no JVD, no thyroid enlargement, no adenopathy. CHEST: No chest wall deformity. Symmetrical expansion. LUNGS: Equal air entry with no crackles, wheeze, rhonchi or dullness. CVS: Regular rate and rhythm, normal S1 and S2, no gallops, no murmurs, no rubs ABDOMEN: Soft, nontender. No hepatosplenomegaly, normal bowel sounds, no guarding or rigidity. EXTREMITIES: No clubbing, no edema, no cyanosis, 2+ pulses and upper and lower extremities. MUSCULOSKELETAL: Muscle strength and tone normal. SPINE: No scoliosis or deformity SKIN: No rashes, abrasions and bruising on bilateral lower extremities, arms, and over the left eye CENTRAL NERVOUS SYSTEM: Alert and oriented -2. No focal deficits, tone is normal in all 4 extremities. PSYCHIATRIC: Alert and oriented -2. Appropriate affect. Intact judgment and insight. - Labs CBC & Chem 7: 03/25/21 07:37 03/25/21 06:36 Labs: Abnormal Lab Results - Last 24 Hours (Table) 03/24/21 03/24/21 03/24/21 Range/Units 11:07 11:07 11:07 WBC (3.8-10.6) k/uL RBC (4.30-5.90) m/uL Hgb (13.0-17.5) gm/dL Hct (39.0-53.0) % MCV (80.0-100.0) fL RDW (11.5-15.5) % Plt Count (150-450) k/uL D-Dimer 3.30 H (<0.60) mg/L FEU Sodium (137-145) mmol/L Carbon Dioxide (22-30) mmol/L BUN (9-20) mg/dL Creatinine (0.66-1.25) mg/dL POC Glucose (mg/dL) (75-99) mg/dL C-Reactive Protein 5.1 H (<1.0) mg/dL Procalcitonin 10.40 H (0.02-0.09) ng/mL 03/24/21 03/25/21 03/25/21 Range/Units 11:41 06:10 06:36 WBC (3.8-10.6) k/uL RBC (4.30-5.90) m/uL Hgb (13.0-17.5) gm/dL Hct (39.0-53.0) % MCV (80.0-100.0) fL RDW (11.5-15.5) % Plt Count (150-450) k/uL D-Dimer (<0.60) mg/L FEU Sodium 136 L (137-145) mmol/L Carbon Dioxide 17 L (22-30) mmol/L BUN 4 L (9-20) mg/dL Creatinine 0.30 L (0.66-1.25) mg/dL POC Glucose (mg/dL) 100 H 104 H (75-99) mg/dL C-Reactive Protein (<1.0) mg/dL Procalcitonin (0.02-0.09) ng/mL 03/25/21 Range/Units 07:37 WBC 14.2 H (3.8-10.6) k/uL RBC 3.43 L (4.30-5.90) m/uL Hgb 11.1 L (13.0-17.5) gm/dL Hct 34.7 L (39.0-53.0) % MCV 101.1 H (80.0-100.0) fL RDW 15.7 H (11.5-15.5) % Plt Count 498 H (150-450) k/uL D-Dimer (<0.60) mg/L FEU Sodium (137-145) mmol/L Carbon Dioxide (22-30) mmol/L BUN (9-20) mg/dL Creatinine (0.66-1.25) mg/dL POC Glucose (mg/dL) (75-99) mg/dL C-Reactive Protein (<1.0) mg/dL Procalcitonin (0.02-0.09) ng/mL Microbiology - Last 24 Hours (Table) 03/20/21 17:40 Blood Culture - Preliminary Blood No Growth after 96 hours Assessment and Plan Plan: Assessment: #1. Acute hypoxic respiratory failure related to atelectasis, and possibility of right basilar pneumonia is not completely excluded, chest x-ray showing right basilar patchy infiltrate. Currently patient is on room air, follow-up chest x- ray showed subsegmental basilar atelectatic changes. No clear evidence of pneumonia. No pulmonary symptoms #2. Altered mental status, related to acute delirium tremens and acute toxic metabolic encephalopathy. CT of the head and cervical spine showing no acute pathology, CSF cultures remain negative. HSV by PCR was negative. Cultures remain negative, MRI of the brain was negative, no seizure activity. Her mentation is much improved, and patient is oriented to person and place #3. History of prescription drug abuse, alcohol abuse #4. Falls at home, related to altered mental status #5. Multiple skin abrasions, including left eye bruising, with a CT of the face showing no acute fractures #6. Hypernatremia related to dehydration free water deficit, improved with IV fluids #7. Hypertension #8. GERD/reflux #9. Anxiety #10. Left ankle cellulitis, status post aspiration #11. Blood culture positive for Staphylococcus epidermidis, likely contaminant. Remains on vancomycin #12. Small left apical density seen on the CT chest without contrast dated 03/23/2021 possibly related to atelectasis and underlying mass is being considered. This will be followed on an outpatient basis Plan: CTA chest showed no clear evidence of pulmonary embolism Stable from pulmonary perspective No acute events overnight Overall patient is generally debilitated, deconditioned Encouraged patient to sit upright, and use incentive spirometer Physical therapy swallowing Today's labs have been noted Procalcitonin level is improving No fever or chills Pulmonary service will sign follow-up on as-needed basis We do need to see him in follow-up in regards to the left apical density seen in the CT chest, and schedule follow-up imaging. I performed a history & physical examination of the patient and discussed their management with my nurse practitioner, Naila Pryor. I reviewed the nurse practitioner's note and agree with the documented findings and plan of care. Lung sounds are positive for diffuse wheezes throughout the lung licea. The findings and the impression was discussed with the patient. I attest to the documentation by the nurse practitioner. Time with Patient: Less than 30
[2021-03-25] MEDS: MEGESTROL 400 MG/10 ML CUP PO SCH (12:07)
--- NOTE | 2021-03-25 12:20 | P.PN ---
<Ivan Maharaj - Last Filed: 03/25/21 15:29> Subjective Progress Note Date: 03/25/21 Hospital course: Patient is a 55-year-old male with a past medical history of EtOH abuse. He p resented to the hospital on 03/14/21 after being found delirious and confused by his neighbor at home. Patient was reportedly found laying on the floor covered in his own feces with empty alcohol bottles surrounding him. Patient presented to the hospital with multiple bruises and abrasions in different stages of healing. UDS positive for marijuana and benzodiazepines. EtOH level was less than 10. Patient was initially found to have hypernatremia with sodium of 152, hyponatremia with potassium of 3.2, hyperchloremia with chloride of 114 and elevated creatinine kinase of 999. He was admitted for acute metabolic encephalopathy with hallucinations and EtOH withdrawal, rhabdomyolysis, and se psis without sepsis shock. Patient has underwent multiple labs and imaging see below. Currently admitted under our services with consultation to pulmonology, infectious disease, neurology, and orthopedic surgery. Labs and imaging: Initial blood culture showing no results after 144 hours, CSF fluid negative wound culture right knee negatives wound culture left ankle preliminary results negative, 1 out of 2 blood culture results repeated on 03/19/21 positive for Staphylococcus epidermidis, possibly contaminated, and repeat blood culture drawn on 03/20/21 showing no growth after 24 hours. TSH 1.770. Pro-calcitonin 50.22 and CRP of 8.1. Chest x-ray completed 03/14/21 revealed minimal subsegmental atelectasis at the right lung base without change. CT head and cervical spine completed 03/14/21 negative for acute intercranial abnormality with spondylitic changes to cervical spine with no acute fractures or abnormalities. CT facial bones without contrast showing evidence of old blowout fracture on the floor of the left bony orbit with reported displacement of 4 mm and is negative for acute fractures. X-ray right elbow olecranon process spur formation with posterior soft tissue swelling negative for acute fractures. Bilateral carotid Dopplers negative for hemodynamically significant internal carotid artery stenosis Venous Doppler left lower extremity negative for DVT. X-ray left ankle negative for acute fracture. MRI brain with and without contrast showing mild atrophy with mild subependymal white matter increased signal around the lateral ventricles measuring up to 5 mm in thickness no evidence of cortical infarct. MRI lumbar spine with and without contrast showing no evidence of discitis, no significant disc space narrowing or acute fractures. Multilevel mild facet arthroplasty and mild lateral recess stenosis with multilevel mild posterior disc bulging without spinal stenosis. CT left lower extremity showing chronic changes with soft tissue swelling and calcaneal spurring, negative for acute fracture. 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 Chest CTA negative for acute pulmonary embolism. Lateral left upper lung groundglass opacity possibly representing an acute infectious process with stable small bilateral pleural effusions. Physical exam: 03/22/21: Patient seen and fully evaluated at the bedside this morning. Patient alert to self only upon examination, he was confused to time, place, and situation. Even with direction, patient was unable to state that he was in the hospital. He continues to be febrile with high temperature over the past 24 hours of 102.0F. He remains on vancomycin and cefepime. Infectious disease, pulmonary, neurology, and orthopedic surgery following. Pro-calcitonin 50.22 and CRP of 8.1. 03/23/21: Patient was seen and fully evaluated at the bedside this morning he was sitting up on the side of the bed working with physical therapy. The patient had no difficulties sitting at the edge of the bed and was able to stand with assistance for 2 minutes prior to sitting back down. Patient reports continued pain in his lower extremities increased upon standing. He was much more alert this morning. Patient able to state full name, spell his first name and then spell it backwards, read the clock to tell us what time it was, was able to state that he was in the hospital and it is 2020. He denied having any headache, lightheadedness, dizziness, chest pain, palpitations, shortness of breath, abdominal pain, nausea, vomiting, or any other complaints at this time other than pain in his lower extremities. Morning labs reviewed in patient positive for hypokalemia with potassium of 3.4. 03/24/21: Patient was seen and fully evaluated the bedside this morning. His condition seemed to decline from yesterday as he was much more alert and oriented yesterday when compared to today, patient currently alert to person and place only but confused to time and situation. He is having visual hallucinations as he states he sees his father standing outside his window. Physical therapy reported patient was not even able to stand today and upon sitting him up, he just threw himself backwards multiple times. Patient was also noted to have abdominal pursed lipped breathing, his respirations were 24- 28 breaths per minute and oxygen saturation was maintained 97% on room air. Skin was warm and dry. Previous fevers have improved and patient's highest temperature over the past 48 hours was 99.8F. When asked the patient whether or not he was experiencing shortness of breath, chest pain, palpitations, abdominal pain, nausea, or any other pain or discomfort..he denied. However he continued to have pursed lipped breathing with use of abdominal muscles. This is a new finding and RN at bedside stated patient was not doing earlier this morning. Orders placed for repeat CXR, VBG, D-dimer, repeat Procalcitonin, CRP, CBC, and BMP. Discussed assessment findings with pulmonary, recommended D-dimer and further evaluation of lower extremities. Hemodynamically pt is stable. Abdominal pursed lipped breathing spontaneously subsided after approximately 20 minutes and respirations back to baseline regular, even, and unlabored. Pt remains tachycardic with HR 112. VBG revealed patient in respiratory alkalosis with pH 7.54, pCO2 25, and bicarb of 21. D-dimer elevated at 3.30. Order [facility] for stat CTA chest to rule out PE. 03/25/21: CBC and BMP showing no significant abnormalities this morning with the exception of leukocytosis with WBC count of 14.2 improved from yesterday and thrombocytosis with platelet count of 498,000. Patient placed on heparin per DVT prophylaxis at this time. He remains on IV antibiotic vancomycin. This morning patient alert to person and place but remains confused to time and situation. Patient appears to be waxing and waning with improvements in setbacks. Vital signs stable with the exception of persistent tachycardia with heart rate of 110. Patient's temperature remained stable with highest temp of 9 9.6 over the past 24 hours. Patient denies having any headache, lightheadedness, dizziness, chest pain, palpitations, or shortness of breath. Patient did report continued visual hallucinations stating he saw a small girl in his room. General: Nontoxic, no distress and appears stated age. Derm: Skin warm and dry, normal coloration for ethnicity. Multiple bruises and abrasions covering upper and lower extremities in different stages of healing. red rash to buttocks Head: Atraumatic, normocephalic and symmetric. Eyes: No lid lag, and anicteric sclera. Slight swelling and bruising surrounding left orbital region. Mouth: No lip lesions, mucus membranes moist Cardiovascular: Regular rhythm and tachycardic rate, no murmur, positive posterior tibial pulses bilaterally, and cap refill < 2 seconds. Lungs: Respirations even, regular, and unlabored on room air. Lungs CTA bilaterally, no rhonchi, no rales, no wheezing, and no accessory muscle usage. GI/: soft, nontender to palpation, no guarding, no appreciable organomegaly. Rendon catheter in place. Ext: ROM intact. No gross muscle atrophy, no edema, no contractures. erythema and swelling to BLE worse on left. Neuro/Psych: Speech clear, face symmetrical and CN II-XII grossly intact. Patient able to follow limited commands, alert to person and place only today, confused to time and situation. Pupils equal and round. Patient with visual hallucinations reporting that he sees and was talking to a little girl in his room. Assessment and Plan of Care: Alcohol abuse with alcohol withdrawal syndrome Delirium tremens Rhabdomyolysis Acute Metabolic Encephalopathy with hallucinations -Benzodiazepines per CIWA scale -IV fluid hydration, Thiamine 100 mg twice daily -Seizure precautions, Fall precautions -Computed tomography scan of the head showed no acute findings. -MRI of the brain was no acute finding -Consulted neurology and psychiatry for further evaluation -EEG was abnormal with generalized cerebral dysfunction and evidence of toxic metabolic encephalopathy -Treatment of underlying infectious process, continue IV antibiotics cefepime and vancomycin pending further recommendations by infectious disease Acute metabolic encephalopathy, improving Sepsis without septic shock Fever, unclear etiology Concerns about meningitis, ruled out Bacteremia, contamination with staph epidermidis Concerns of RLL Aspiration Pneumonia, questionable -Initial Pro-calcitonin 50.22 and CRP of 8.1, improving with repeat pro- calcitonin 10.40 and CRP 5.1. -Continue IV antibiotics: Vancomycin -Blood culture showing no growth after 144 hours -CSF fluid not consistent with bacterial meningitis. -HSV PCR negative -MRI of the lumbar spine with no evidence of discitis or prevertebral abscess -Blood gas showed no evidence of acute CO2 narcosis -Changed oral thiamine to IV thiamine 100 mg twice daily. -Treatment of underlying infectious process, continue IV antibiotics cefepime and vancomycin pending further recommendations by infectious disease Hypokalemia, resolved -We will continue to monitor with repeat a.m. labs. Poor living condition Recurrent episodes of hospital admission for alcohol abuse Major life stressors with possible major depression -Consult placed to psychiatry -ornamental [employer] consultation Macrocytic anemia mild, Most likely secondary to alcohol abuse No reported GI bleeding -Multiple skin abrasions and bruising in multiple stages of healing -Left eye bruising -No acute fractures identified Hypernatremia, resolved status post administration of IV fluids. -We will continue to monitor with repeat a.m. labs. CODE STATUS: Full code DVT prophylaxis: SCDs Discussed with: Patient and RN Anticipated discharge date: Clinical course to determine Anticipated discharge place: Home A total of 45 minutes was spent on the care of this complex patient more than 50% of the time was spent in counseling and care coordination. Objective - Vital Signs Vital signs: Vital Signs Temp 99.3 F 03/25/21 08:00 Pulse 115 H 03/25/21 11:52 Resp 18 03/25/21 11:52 BP 135/91 03/25/21 11:52 Pulse Ox 96 03/25/21 11:52 Intake & Output 03/24/21 03/25/21 03/25/21 18:59 06:59 18:59 Intake Total 570 240 455 Output Total 1150 Balance 570 -910 455 Weight 104 kg 104 kg Intake: Intake, IV Titration 50 175 Amount Thiamine 100 mg In Sodium 50 50 Chloride 0.9% 50 ml @ 100 mls/hr IVPB Q12HR [facility] Rx#:[id number] Vancomycin 1,500 mg In 125 Sodium Chloride 0.9% 250 ml @ 125 mls/hr IVPB Q8H [facility] Rx#:[id number] Oral 520 240 280 Output: Urine 1150 Other: Voiding Method Indwelling Catheter Indwelling Catheter Diaper # Voids 1 # Bowel Movements 3 2 - Labs CBC & Chem 7: 03/25/21 07:37 03/25/21 06:36 Labs: Abnormal Lab Results - Last 24 Hours (Table) 03/24/21 03/24/21 03/25/21 Range/Units 11:07 11:07 06:10 WBC (3.8-10.6) k/uL RBC (4.30-5.90) m/uL Hgb (13.0-17.5) gm/dL Hct (39.0-53.0) % MCV (80.0-100.0) fL RDW (11.5-15.5) % Plt Count (150-450) k/uL Sodium (137-145) mmol/L Carbon Dioxide (22-30) mmol/L BUN (9-20) mg/dL Creatinine (0.66-1.25) mg/dL POC Glucose (mg/dL) 104 H (75-99) mg/dL C-Reactive Protein 5.1 H (<1.0) mg/dL Procalcitonin 10.40 H (0.02-0.09) ng/mL 03/25/21 03/25/21 Range/Units 06:36 07:37 WBC 14.2 H (3.8-10.6) k/uL RBC 3.43 L (4.30-5.90) m/uL Hgb 11.1 L (13.0-17.5) gm/dL Hct 34.7 L (39.0-53.0) % MCV 101.1 H (80.0-100.0) fL RDW 15.7 H (11.5-15.5) % Plt Count 498 H (150-450) k/uL Sodium 136 L (137-145) mmol/L Carbon Dioxide 17 L (22-30) mmol/L BUN 4 L (9-20) mg/dL Creatinine 0.30 L (0.66-1.25) mg/dL POC Glucose (mg/dL) (75-99) mg/dL C-Reactive Protein (<1.0) mg/dL Procalcitonin (0.02-0.09) ng/mL Microbiology - Last 24 Hours (Table) 03/20/21 17:40 Blood Culture - Preliminary Blood No Growth after 96 hours <Melva Cline - Last Filed: 03/25/21 16:33> Subjective Patient seen and examined independently. Patient was also seen by Ivan Maharaj NP and case was discussed. I am in agreement with subjective, physical exam, assessment and plan as written above and amended below. Patient with possible pneumonia on CT of the chest. Would recommend he wear his fevers were coming from possible aspiration event. We'll continue cefepime and vancomycin, anticipate that we'll complete a seven-day course. Pro-calcitonin is improving. Patient still significantly confused. He will need subacute rehabilitation on discharge. Anticipate discharge early next week. General: non toxic, no distress, appears at stated age Derm: Multiple abrasions bilateral lower extremities, multiple areas of ecchymoses in various stages of healing. Head: atraumatic, normocephalic, symmetric Eyes: EOMI, no lid lag, anicteric sclera Mouth: no lip lesion, mucus membranes moist Cardiovascular: S1S2 reg, no murmur, positive posterior tibial pulse bilateral, Lungs: Decreased breath sounds bilateral bilateral, no rhonchi, no rales , no accessory muscle use Abdominal: soft, nontender to palpation, no guarding, no appreciable organomegaly Ext: no gross muscle atrophy, no edema, no contractures Neuro: CN II-XI grossly intact, no focal neuro deficits, positive tremors Psych: Alert to self and hospital, believes it is 2020. Objective - Vital Signs Vital signs: Vital Signs Temp 99.3 F 03/25/21 08:00 Pulse 115 H 03/25/21 14:00 Resp 18 03/25/21 14:00 BP 135/91 03/25/21 11:52 Pulse Ox 96 03/25/21 11:52 Intake & Output 03/24/21 03/25/21 03/25/21 18:59 06:59 18:59 Intake Total 570 240 635 Output Total 1150 Balance 570 -910 635 Weight 104 kg 104 kg Intake: Intake, IV Titration 50 175 Amount Thiamine 100 mg In Sodium 50 50 Chloride 0.9% 50 ml @ 100 mls/hr IVPB Q12HR [facility] Rx#:[id number] Vancomycin 1,500 mg In 125 Sodium Chloride 0.9% 250 ml @ 125 mls/hr IVPB Q8H [facility] Rx#:[id number] Oral 520 240 460 Output: Urine 1150 Other: Voiding Method Indwelling Catheter Indwelling Catheter Diaper # Voids 1 # Bowel Movements 3 2 - Labs CBC & Chem 7: 03/25/21 07:37 03/25/21 06:36 Labs: Abnormal Lab Results - Last 24 Hours (Table) 03/24/21 03/25/21 03/25/21 Range/Units 11:07 06:10 06:36 WBC (3.8-10.6) k/uL RBC (4.30-5.90) m/uL Hgb (13.0-17.5) gm/dL Hct (39.0-53.0) % MCV (80.0-100.0) fL RDW (11.5-15.5) % Plt Count (150-450) k/uL Sodium 136 L (137-145) mmol/L Carbon Dioxide 17 L (22-30) mmol/L BUN 4 L (9-20) mg/dL Creatinine 0.30 L (0.66-1.25) mg/dL POC Glucose (mg/dL) 104 H (75-99) mg/dL Procalcitonin 10.40 H (0.02-0.09) ng/mL 03/25/21 Range/Units 07:37 WBC 14.2 H (3.8-10.6) k/uL RBC 3.43 L (4.30-5.90) m/uL Hgb 11.1 L (13.0-17.5) gm/dL Hct 34.7 L (39.0-53.0) % MCV 101.1 H (80.0-100.0) fL RDW 15.7 H (11.5-15.5) % Plt Count 498 H (150-450) k/uL Sodium (137-145) mmol/L Carbon Dioxide (22-30) mmol/L BUN (9-20) mg/dL Creatinine (0.66-1.25) mg/dL POC Glucose (mg/dL) (75-99) mg/dL Procalcitonin (0.02-0.09) ng/mL Microbiology - Last 24 Hours (Table) 03/20/21 17:40 Blood Culture - Preliminary Blood No Growth after 96 hours
[2021-03-25] MEDS: HEPARIN SODIUM,PORCINE/PF 5,000 UNIT/0.5 ML SYRINGE SQ SCH ×2 (16:33→22:53)
[2021-03-25 16:46] LABS: Glucose,Whole Blood 97 mg/dL (75-99)
--- NOTE | 2021-03-25 17:43 | P.PN ---
Subjective Progress Note Date: 03/25/21 The patient is seen at bedside and per nurse he is about the same today compared to yesterday. It seems the patient has been slowing improving. Patient denies of headaches or any focal weakness. No further fever. His last Tmax in last 72 hours is on 03/24/2021 at around 4am off 99.8F MRI the cervical and thoracic was ordered about 2 days ago but the patient did not have it since he cannot tolerate exam. Objective - Vital Signs Vital signs: Vital Signs Temp 99.3 F 03/25/21 08:00 Pulse 112 H 03/25/21 16:00 Resp 18 03/25/21 16:00 BP 136/83 03/25/21 16:00 Pulse Ox 98 03/25/21 16:00 Intake & Output 03/24/21 03/25/21 03/25/21 18:59 06:59 18:59 Intake Total 570 240 635 Output Total 1150 Balance 570 -910 635 Weight 104 kg 104 kg Intake: Intake, IV Titration 50 175 Amount Thiamine 100 mg In Sodium 50 50 Chloride 0.9% 50 ml @ 100 mls/hr IVPB Q12HR [facility] Rx#:[id number] Vancomycin 1,500 mg In 125 Sodium Chloride 0.9% 250 ml @ 125 mls/hr IVPB Q8H [facility] Rx#:[id number] Oral 520 240 460 Output: Urine 1150 Other: Voiding Method Indwelling Catheter Indwelling Catheter Diaper # Voids 1 # Bowel Movements 3 2 - Exam GENERAL: The patient is lying in bed and is moderate acute distress. INTEGUMENTARY: Multiple skin abrasion. MUSCULOSKELETAL: Pain with flexion of the right knee. Has bruises of both knee NEUROLOGICAL: Higher mental function: The patient is awake, alert, oriented to self, place and time. Patient is able to name objects correctly (pen, watch). He seems to be responding a bit faster today (but continues to be somewhat slow). Patient is following simple commands. No aphasia from limited language. No neglect. Cranial nerves: The pupils are round, equal and reactive to light. Visual licea are full to confrontation throughout. Extraocular movement is tracking to the right and left and no appreciable nystagmus. Has echymosis around the eye (mostly upper). The facial strength is normal throughout. No dysarthria is noted. Motor: The strength is moving upper extremities above gravity without focality and seems about 5- while the lower are limited because of pain. The left lower extremity he was able to bend the knee while the right he was in severe pain attempting to bend the knee. Had antigravity of bilateral ankles. Normal tone and bulk in upper and hard to assess tone in lower because of his pain.. Cerebellum: Normal finger to nose bilaterally Sensation: Sensation is normal to touch throughout. Reflexes (right/left): Brachioradialis are 3+, biceps are 2-3+ bilaterally, triceps are 2+. Lowers are to assess because of pain. Plantars are mute bilaterally. WORK-UP: * CPK is 999 on 03/14 but 217 on 03/16--improved. * B12 582 normal, however at MMA is elevated 0.46 (normal <0.40). This may indicate intracellular deficiency of B12. Patient's folate 5.7, TSH 1.77, RPR nonreactive. * Low Vitamin B6 3 (normal is 5-50). * Ammonia level 12 (normal) * ESR 64 on 0 828 and the repeated ESR 77 on 03/21/2021. * MRI of the brain on 03/18/21 revealed mild atrophy. Mild subependymal white matter increased signal around the lateral ventricles measuring up to 5 mm in thickness. No evidence of cortical infarct. * REPEAT MRI brain w/o (03/23/21): I ordered MRI the brain with and without but because the patient was in so much pain that was the study was limited and it was done only without. The MR the brain is reported as limited examination due to patient's pain. No obvious significant intracranial abnormality. * MRI of the lumbar spine with and without contrast 03/19/2021 revealed no evidence of discitis. No significant disc space narrowing. No fracture. Multilevel mild facet arthropathy and mild lateral recess stenosis. Multilevel mild posterior disc bulging without spinal stenosis. * CerebroSpinal fluid examination revealed glucose 64 (40-70), proteins 226 (12- 60), total WBC count in CSF 18, out of its 15% monocytes and 85% polynuclear's. CSF RBC 5175, due to traumatic tap. * Patient's spinal fluid was traumatic because patient was not cooperating. CSF showsCSF shows very mild leukocytosis ( about 2-3 cells above normal after correction for traumatic tap), and very elevated proteins. Cultures negative. HSV-1 and 2 PCR in the CSF are negative. Viral test are negative. Infectious disease following. * Patient had undergone aspiration of right knee and left ankle, both of which have been negative for any growth. No crystals seen in the sinonasal fluid. * Routine EEG on 03/17/21 was reported as abnormal due to background slowing of moderate to severe degree. This is suggestive of generalized cerebral dysfunction, as can be seen with toxic metabolic encephalopathy or due to diff use structural brain abnormality. No epileptiform activity was seen. * Carotid Doppler was technically difficult due to patient's inability to hold still. No hemodynamically significant ICA stenosis identified on either side. Antegrade flow in both vertebral arteries. * CT of facial bone on 03/14/2021 is reported as there is evidence of old bone out fracture of the floor of the left bony orbits. No acute fracture seen. * Left Lower extremity CT 03/22/2021: is reported as chronic changes as noted. Soft tissue swelling. Calcaneal is spurring. * CT of the abdomen/pelvis: Was reported as fatty infiltration of the liver. Pleural effusion and basilar atelectasis. Elevated right diaphragm could relate to diaphragm paralysis. Subcutaneous edema around the abdomen. Congestive heart failure as possible. These abnormality. New compared to old exam. 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 No acute abnormality within the abdomen pelvis * CT of the chest is reported as small left apical density. Additional left lateral long-based thickening may be present. At the clinic today says an underlying mass should be considered. No evidence of pneumonia or aspiration pneumonia. Moderate fatty infiltration to the liver. * CT of the chest is reported as suboptimal study without CT chest of for acute pulmonary embolism. Lateral left upper lung groundglass opacity could reflect acute infection process. No significant change from one day earlier. Stable small bilateral pleural effusion noted. - Labs CBC & Chem 7: 03/25/21 07:37 03/25/21 06:36 Labs: Abnormal Lab Results - Last 24 Hours (Table) 03/24/21 03/25/21 03/25/21 Range/Units 11:07 06:10 06:36 WBC (3.8-10.6) k/uL RBC (4.30-5.90) m/uL Hgb (13.0-17.5) gm/dL Hct (39.0-53.0) % MCV (80.0-100.0) fL RDW (11.5-15.5) % Plt Count (150-450) k/uL Sodium 136 L (137-145) mmol/L Carbon Dioxide 17 L (22-30) mmol/L BUN 4 L (9-20) mg/dL Creatinine 0.30 L (0.66-1.25) mg/dL POC Glucose (mg/dL) 104 H (75-99) mg/dL Procalcitonin 10.40 H (0.02-0.09) ng/mL 03/25/21 Range/Units 07:37 WBC 14.2 H (3.8-10.6) k/uL RBC 3.43 L (4.30-5.90) m/uL Hgb 11.1 L (13.0-17.5) gm/dL Hct 34.7 L (39.0-53.0) % MCV 101.1 H (80.0-100.0) fL RDW 15.7 H (11.5-15.5) % Plt Count 498 H (150-450) k/uL Sodium (137-145) mmol/L Carbon Dioxide (22-30) mmol/L BUN (9-20) mg/dL Creatinine (0.66-1.25) mg/dL POC Glucose (mg/dL) (75-99) mg/dL Procalcitonin (0.02-0.09) ng/mL Microbiology - Last 24 Hours (Table) 03/20/21 17:40 Blood Culture - Preliminary Blood No Growth after 96 hours Assessment and Plan Assessment: * 55-year-old male with history of alcoholism, was found at laying with fecal matter with multiple bruises, scratches and pressure sores over dependent areas, indicating patient has been on the floor for fairly long period of time. Last period of contact with his friends was on Sunday, 3 days prior to arrival. * Fevers of unknown etiology. MRI Brain is negative. No definitive evidence of meningitis/encephalitis based upon CSF results. CSF culture are negative. HSV PCR negative and viral are negative. * Encpehalopathy of unknown etiology. Rule out infectious process (unknown source yet). There might be a component of alcohol withdrawl --mentation is slowly improving. * Low Vitamin B6 3 (normal is 5-50). * Multiple skin abrasions including left eye bruising * History of multiple falls * Hypertension * History of alcoholism * History of marijuana use. Plan: MRI the cervical and thoracic was ordered about 2 days ago but the patient did not have it since he cannot tolerate exam (to find out source of fever). It was discontinued since could not tolerate it and since no further fevers. Will defer antibiotic management to the I.D. team. Continue folic acid 1mg daily and Vitamin B12 1000mcg daily. Continue Thiamine daily. Continue Vitamin B6 50mg bid and within 2-3month recommend getting repeat levels again and modify medication appropriately if needed. Infection disease is on board. Pulmonary team is on board. Will defer the rest of medical management to the primary team. The plan is discussed with the patient's primary team and his nurse. Will follow-up with patient sporadically. Osman Malone MD Neuro-Hospitalist Time with Patient: Less than 30
--- NOTE | 2021-03-25 18:05 | PN ---
PROGRESS NOTE DATE OF SERVICE: 03/25/2021 REASON FOR FOLLOWUP: Possible left lower extremity cellulitis. INTERVAL HISTORY: Patient overall feels better and has improved. The patient is breathing comfortably on room air. The patient remains to be pleasantly confused, not able to provide any history. No vomiting, diarrhea or other changes reported by nursing staff. Complaining of some pain to the left ankle area. PHYSICAL EXAMINATION: Blood pressure 135/90 with a pulse of 115, temperature 99.3. He is 96% on room air. General description is a middle-aged male lying in bed in no distress. Respiratory system unlabored breathing, clear to auscultation anteriorly. Heart S1, S2. Regular rate and rhythm. Left leg did have some swelling no significant redness. Did have tenderness on movement of the left leg area. LABS: Hemoglobin 11, white count 14.2, BUN of 4, creatinine 0.30. Culture has been negative. DIAGNOSTIC IMPRESSION AND PLAN: Patient with fever, did have elevated white count in this patient did have extensive workup but no clear focus of infection. He has been having left ankle pain, which has been aspirated. Those cultures have been negative. Because of the positive cellulitis, covered with Vanco and transition to oral Zyvox on discharge for short course. Close outpatient followup. MMODL / IJN: [id number] /
[2021-03-25 20:29] LABS: Glucose,Whole Blood 107 mg/dL (75-99)
[2021-03-26 06:18] LABS: Glucose,Whole Blood 94 mg/dL (75-99)
[2021-03-26] MEDS ORDERED: VANCOMYCIN TROUGH DUE 1 EACH MISC MISCELLANE ONE (07:00)
[2021-03-26] MEDS: PYRIDOXINE 50 MG TAB PO SCH ×2 (09:24→21:01)
[2021-03-26] MEDS: VANCOMYCIN 1,500 MG in SODIUM CHLORIDE 0.9% 250 ML IVPB SCH ×2 (09:24→15:16)
[2021-03-26] MEDS: HEPARIN SODIUM,PORCINE/PF 5,000 UNIT/0.5 ML SYRINGE SQ SCH ×2 (09:24→15:16)
[2021-03-26] MEDS: FOLIC ACID 1 MG TAB PO SCH (09:25)
[2021-03-26] MEDS: MEGESTROL 400 MG/10 ML CUP PO SCH ×2 (09:25→09:32)
[2021-03-26] MEDS: lisinopriL 10 MG TAB PO SCH (09:25)
[2021-03-26] MEDS: PANTOPRAZOLE 40 MG TABLET PO SCH (09:25)
[2021-03-26] MEDS: amLODIPine 5 MG TAB PO SCH ×2 (09:25→20:46)
[2021-03-26] MEDS: NYSTATIN 100,000 UNIT/GM OINT 30 GM TUBE TOPICAL SCH ×3 (09:26→21:01)
[2021-03-26 11:42] LABS: Glucose,Whole Blood 112 mg/dL (75-99)
[2021-03-26] MEDS: THIAMINE 100 MG in SODIUM CHLORIDE 0.9% 50 ML IVPB SCH ×2 (12:18→21:01)
[2021-03-26] MEDS: ACETAMINOPHEN TAB 325 MG TAB PO PRN ×2 (12:22→21:01)
--- NOTE | 2021-03-26 14:18 | P.PN ---
<Ivan Maharaj - Last Filed: 03/26/21 14:07> Subjective Progress Note Date: 03/26/21 Hospital course: Patient is a 55-year-old male with a past medical history of EtOH abuse. He p resented to the hospital on 03/14/21 after being found delirious and confused by his neighbor at home. Patient was reportedly found laying on the floor covered in his own feces with empty alcohol bottles surrounding him. Patient presented to the hospital with multiple bruises and abrasions in different stages of healing. UDS positive for marijuana and benzodiazepines. EtOH level was less than 10. Patient was initially found to have hypernatremia with sodium of 152, hyponatremia with potassium of 3.2, hyperchloremia with chloride of 114 and elevated creatinine kinase of 999. He was admitted for acute metabolic encephalopathy with hallucinations and EtOH withdrawal, rhabdomyolysis, and se psis without sepsis shock. Patient has underwent multiple labs and imaging see below. Currently admitted under our services with consultation to pulmonology, infectious disease, neurology, and orthopedic surgery. Labs and imaging: Initial blood culture showing no results after 144 hours, CSF fluid negative wound culture right knee negatives wound culture left ankle preliminary results negative, 1 out of 2 blood culture results repeated on 03/19/21 positive for Staphylococcus epidermidis, possibly contaminated, and repeat blood culture drawn on 03/20/21 showing no growth after 24 hours. TSH 1.770. Pro-calcitonin 50.22 and CRP of 8.1. Chest x-ray completed 03/14/21 revealed minimal subsegmental atelectasis at the right lung base without change. CT head and cervical spine completed 03/14/21 negative for acute intercranial abnormality with spondylitic changes to cervical spine with no acute fractures or abnormalities. CT facial bones without contrast showing evidence of old blowout fracture on the floor of the left bony orbit with reported displacement of 4 mm and is negative for acute fractures. X-ray right elbow olecranon process spur formation with posterior soft tissue swelling negative for acute fractures. Bilateral carotid Dopplers negative for hemodynamically significant internal carotid artery stenosis Venous Doppler left lower extremity negative for DVT. X-ray left ankle negative for acute fracture. MRI brain with and without contrast showing mild atrophy with mild subependymal white matter increased signal around the lateral ventricles measuring up to 5 mm in thickness no evidence of cortical infarct. MRI lumbar spine with and without contrast showing no evidence of discitis, no significant disc space narrowing or acute fractures. Multilevel mild facet arthroplasty and mild lateral recess stenosis with multilevel mild posterior disc bulging without spinal stenosis. CT left lower extremity showing chronic changes with soft tissue swelling and calcaneal spurring, negative for acute fracture. 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 Chest CTA negative for acute pulmonary embolism. Lateral left upper lung groundglass opacity possibly representing an acute infectious process with stable small bilateral pleural effusions. Physical exam: 03/26/21: Patient seen and evaluated at bedside this morning. He remains alert to person and place only and confused to time and situation. Patient currently covered in feces as he took his stool out of his brief and rubbed it all over his hands, arms, nose, and other areas of his body. CNAs at bedside cleaning pt at this time. Patient continues to have episodes of visual and auditory hallucinations. He denies any complaints at this time including chest pain, palpitations, shortness of breath, abdominal pain, or any other complaints. Patient does report pain in his knees and ankles at times. Patient to be transferred to medical surgical unit at this time. Temperature high over the past 24 hours 99.5F. He remains tachycardic. General: Nontoxic, no distress and appears stated age. Derm: Skin warm and dry, normal coloration for ethnicity. Multiple bruises and abrasions covering upper and lower extremities in different stages of healing. red rash to buttocks Head: Atraumatic, normocephalic and symmetric. Eyes: No lid lag, and anicteric sclera. Slight swelling and bruising surrounding left orbital region. Mouth: No lip lesions, mucus membranes moist Cardiovascular: Regular rhythm and tachycardic rate, no murmur, positive posterior tibial pulses bilaterally, and cap refill < 2 seconds. Lungs: Respirations even, regular, and unlabored on room air. Lungs CTA bilaterally, no rhonchi, no rales, no wheezing, and no accessory muscle usage. GI/: soft, nontender to palpation, no guarding, no appreciable organomegaly. Rendon catheter in place. Ext: ROM intact. No gross muscle atrophy, no edema, no contractures. erythema and swelling to BLE worse on left. Swelling right knee. Neuro/Psych: Speech clear. Patient able to follow limited commands, alert to person and place only today, confused to time and situation. Patient continues with episodes of visual and auditory hallucinations. Today, patient rubbed his own feces all over hands, nose, and other areas of his body. Assessment and Plan of Care: Alcohol abuse with alcohol withdrawal syndrome Delirium tremens Rhabdomyolysis Acute Metabolic Encephalopathy with hallucinations -IV fluid hydration, Thiamine 100 mg twice daily -Seizure precautions, Fall precautions -Computed tomography scan of the head showed no acute findings. -MRI of the brain was no acute finding -Consulted neurology and psychiatry for further evaluation -EEG was abnormal with generalized cerebral dysfunction and evidence of toxic me tabolic encephalopathy -Treatment of underlying infectious process, continue IV antibiotics cefepime and vancomycin pending further recommendations by infectious disease Acute metabolic encephalopathy Sepsis without septic shock Fever, unclear etiology Concerns about meningitis, ruled out Bacteremia, contamination with staph epidermidis Concerns of RLL Aspiration Pneumonia, questionable -Initial Pro-calcitonin 50.22 and CRP of 8.1, improving with repeat pro- calcitonin 10.40 and CRP 5.1. -Continue IV antibiotics: Vancomycin -Blood culture showing no growth after 144 hours -CSF fluid not consistent with bacterial meningitis. -HSV PCR negative -MRI of the lumbar spine with no evidence of discitis or prevertebral abscess -Blood gas showed no evidence of acute CO2 narcosis -Thiamine 100 mg twice daily. -Treatment of underlying infectious process, continue IV antibiotics cefepime and vancomycin pending further recommendations by infectious disease Hypokalemia, resolved -We will continue to monitor with repeat a.m. labs. Poor living condition Recurrent episodes of hospital admission for alcohol abuse Major life stressors with possible major depression -Consult placed to psychiatry -stoneworker consultation Macrocytic anemia mild, Most likely secondary to alcohol abuse No reported GI bleeding -Multiple skin abrasions and bruising in multiple stages of healing -Left eye bruising -No acute fractures identified Hypernatremia, resolved status post administration of IV fluids. -We will continue to monitor with repeat a.m. labs. CODE STATUS: Full code DVT prophylaxis: SCDs Discussed with: Patient and RN Anticipated discharge date: Clinical course to determine Anticipated discharge place: Extended care facility/longterm facility A total of 45 minutes was spent on the care of this complex patient more than 50% of the time was spent in counseling and care coordination. Objective - Vital Signs Vital signs: Vital Signs Temp 98.9 F 03/26/21 09:15 Pulse 117 H 03/26/21 09:40 Resp 18 03/26/21 09:15 BP 111/68 03/26/21 09:15 Pulse Ox 98 03/26/21 09:15 Intake & Output 03/25/21 03/26/21 03/26/21 18:59 06:59 18:59 Intake Total 815 0 Balance 815 0 Weight 104 kg 68.5 kg Intake: Intake, IV Titration 175 Amount Thiamine 100 mg In Sodium 50 Chloride 0.9% 50 ml @ 100 mls/hr IVPB Q12HR [facility] Rx#:[id number] Vancomycin 1,500 mg In 125 Sodium Chloride 0.9% 250 ml @ 125 mls/hr IVPB Q8H [facility] Rx#:[id number] Oral 640 0 Other: Voiding Method Diaper Diaper Diaper # Voids 1 1 - Labs CBC & Chem 7: 03/25/21 07:37 03/25/21 06:36 Labs: Abnormal Lab Results - Last 24 Hours (Table) 03/25/21 Range/Units 20:14 POC Glucose (mg/dL) 107 H (75-99) mg/dL Microbiology - Last 24 Hours (Table) 03/20/21 17:40 Blood Culture - Preliminary Blood No Growth after 120 hours <Melva Cline A - Last Filed: 03/26/21 19:09> Subjective Ivan Maharaj NP rendered care for this patient independently, reviewed the findings and plan as documented in the note above. I did not physically speak w ith or examine the patient on this date. Objective - Vital Signs Vital signs: Vital Signs Temp 98.3 F 03/26/21 15:08 Pulse 115 H 03/26/21 15:08 Resp 18 03/26/21 15:08 BP 128/81 03/26/21 15:08 Pulse Ox 98 03/26/21 15:08 Intake & Output 03/26/21 03/26/21 03/27/21 06:59 18:59 06:59 Intake Total 390 Balance 390 Weight 68.5 kg Intake: Oral 390 Other: Voiding Method Diaper Diaper # Voids 1 1 # Bowel Movements 3 - Labs CBC & Chem 7: 03/25/21 07:37 03/25/21 06:36 Labs: Abnormal Lab Results - Last 24 Hours (Table) 03/25/21 03/26/21 03/26/21 Range/Units 20:14 11:40 16:28 POC Glucose (mg/dL) 107 H 112 H 123 H (75-99) mg/dL Microbiology - Last 24 Hours (Table) 03/20/21 17:40 Blood Culture - Preliminary Blood No Growth after 120 hours
[2021-03-26 16:30] LABS: Glucose,Whole Blood 123 mg/dL (75-99)
--- NOTE | 2021-03-26 18:28 | PN ---
PROGRESS NOTE DATE OF SERVICE: 03/26/2021 REASON FOR FOLLOWUP: Fever. INTERVAL HISTORY: The patient is afebrile. Did spike a fever of 100.9 this afternoon. The patient is currently on room air. Denies having any chest pain, shortness of breath or cough. No abdominal pain. Still complains of pain to the left ankle area but no worsening. No diarrhea. EXAMINATION: Blood pressure 128/81 with a pulse of 150, temperature 98.3. He is 98% on room air. General description is a middle-aged male lying in bed in no distress. Respiratory system: Unlabored breathing, clear to auscultation anteriorly. Heart S1, S2. Regular rate and rhythm. Abdomen soft, no tenderness. Left leg did have some swelling. No redness or drainage. Left ankle is not as tender as it used to be. LABS: No new labs have been obtained today. Blood culture repeat has been negative. DIAGNOSTIC IMPRESSION AND PLAN: Patient with fever and leukocytosis and this patient did have extensive workup with no obvious focus ( ). There is a question of left leg cellulitis, covered with vancomycin, dosing to monitored closely. We will obtain a WBC scan. Family at the bedside, questions were answered. MMODL / IJN: [id number] /
[2021-03-27] MEDS: VANCOMYCIN 1,500 MG in SODIUM CHLORIDE 0.9% 250 ML IVPB SCH ×3 (01:42→17:41)
[2021-03-27] MEDS: HEPARIN SODIUM,PORCINE/PF 5,000 UNIT/0.5 ML SYRINGE SQ SCH ×4 (01:42→22:31)
[2021-03-27 02:03] LABS: Glucose,Whole Blood 115 mg/dL (75-99)
[2021-03-27] MEDS: ACETAMINOPHEN TAB 325 MG TAB PO PRN ×4 (02:36→22:31)
[2021-03-27 06:04] LABS: Glucose,Whole Blood 91 mg/dL (75-99)
[2021-03-27] MEDS: PYRIDOXINE 50 MG TAB PO SCH ×2 (09:15→22:30)
[2021-03-27] MEDS: FOLIC ACID 1 MG TAB PO SCH (09:15)
[2021-03-27] MEDS: amLODIPine 5 MG TAB PO SCH ×2 (09:15→22:30)
[2021-03-27] MEDS: MEGESTROL 400 MG/10 ML CUP PO SCH (09:15)
[2021-03-27] MEDS: lisinopriL 10 MG TAB PO SCH (09:15)
[2021-03-27] MEDS: THIAMINE 100 MG in SODIUM CHLORIDE 0.9% 50 ML IVPB SCH ×2 (09:16→22:38)
[2021-03-27] MEDS: PANTOPRAZOLE 40 MG TABLET PO SCH (09:16)
--- NOTE | 2021-03-27 09:19 | XR ---
EXAMINATION TYPE: XR chest 1V portable DATE OF EXAM: 03/27/2021 COMPARISON: Chest radiograph and CT 03/24/2021 HISTORY: Spiking temperature. TECHNIQUE: Single frontal view of the chest is obtained. FINDINGS: Mediastinal silhouette and pulmonary vasculature is within normal limits. Elevation of the right hemidiaphragm with strandy atelectasis at the right base. No consolidation, ef fusion or pneumothorax. Groundglass opacities at the left apex and tiny bilateral effusions on the recent CT are not well marixa reciated on the current examination. IMPRESSION: No acute cardiopulmonary process. Groundglass opacities at the left apex and tiny bilat eral effusions seen on the recent CT are not well appreciated on the current examination.
[2021-03-27] MEDS: CEFEPIME 2 GM in SODIUM CHLORIDE 0.9% 100 ML IVPB SCH ×2 (10:00→17:41)
[2021-03-27] MEDS: NYSTATIN 100,000 UNIT/GM OINT 30 GM TUBE TOPICAL SCH ×3 (10:01→22:30)
[2021-03-27 11:18] LABS: HCT 30.8 % (39.6-50.0); HGB 10.1 g/dL (13.0-17.0); MCH 31.6 pg (27.0-32.0); MCHC 32.8 g/dL (32.0-37.0); MCV 96.3 fL (80.0-97.0); Mean Platelet Volume 11.1 fL (9.5-12.2); Platelet Count 364 X 10*3/uL (140-440); RDW 15.5 % (11.5-14.5)
[2021-03-27 11:49] LABS: Glucose,Whole Blood 136 mg/dL (75-99)
[2021-03-27 12:43] LABS: African American GFR (CKD) 174.4 (60.0-200.0); Anion Gap 10.9 mmol/L (4.00-12.00); BUN/Creat Ratio 16.67 Ratio (12.00-20.00); Calcium 8.3 mg/dL (8.7-10.3); Carbon Dioxide 23.1 mmol/L (21.6-31.8); Magnesium 1.6 mg/dL (1.5-2.4); Non-African American GFR(CKD) 150.5 (60.0-200.0); Potassium 3.5 mmol/L (3.5-5.5)
--- NOTE | 2021-03-27 14:43 | P.PN ---
<Ivan Maharaj - Last Filed: 03/27/21 14:28> Subjective Progress Note Date: 03/27/21 Hospital course: Patient is a 55-year-old male with a past medical history of EtOH abuse. He p resented to the hospital on 03/14/21 after being found delirious and confused by his neighbor at home. Patient was reportedly found laying on the floor covered in his own feces with empty alcohol bottles surrounding him. Patient presented to the hospital with multiple bruises and abrasions in different stages of healing. UDS positive for marijuana and benzodiazepines. EtOH level was less than 10. Patient was initially found to have hypernatremia with sodium of 152, hyponatremia with potassium of 3.2, hyperchloremia with chloride of 114 and elevated creatinine kinase of 999. He was admitted for acute metabolic encephalopathy with hallucinations and EtOH withdrawal, rhabdomyolysis, and se psis without sepsis shock. Patient has underwent multiple labs and imaging see below. Currently admitted under our services with consultation to pulmonology, infectious disease, neurology, and orthopedic surgery. Labs and imaging: Initial blood culture showing no results after 144 hours, CSF fluid negative wound culture right knee negatives wound culture left ankle preliminary results negative, 1 out of 2 blood culture results repeated on 03/19/21 positive for Staphylococcus epidermidis, possibly contaminated, and repeat blood culture drawn on 03/20/21 showing no growth after 24 hours. TSH 1.770. Pro-calcitonin 50.22 and CRP of 8.1. Chest x-ray completed 03/14/21 revealed minimal subsegmental atelectasis at the right lung base without change. CT head and cervical spine completed 03/14/21 negative for acute intercranial abnormality with spondylitic changes to cervical spine with no acute fractures or abnormalities. CT facial bones without contrast showing evidence of old blowout fracture on the floor of the left bony orbit with reported displacement of 4 mm and is negative for acute fractures. X-ray right elbow olecranon process spur formation with posterior soft tissue swelling negative for acute fractures. Bilateral carotid Dopplers negative for hemodynamically significant internal carotid artery stenosis Venous Doppler left lower extremity negative for DVT. X-ray left ankle negative for acute fracture. MRI brain with and without contrast showing mild atrophy with mild subependymal white matter increased signal around the lateral ventricles measuring up to 5 mm in thickness no evidence of cortical infarct. MRI lumbar spine with and without contrast showing no evidence of discitis, no significant disc space narrowing or acute fractures. Multilevel mild facet arthroplasty and mild lateral recess stenosis with multilevel mild posterior disc bulging without spinal stenosis. CT left lower extremity showing chronic changes with soft tissue swelling and calcaneal spurring, negative for acute fracture. 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 Chest CTA negative for acute pulmonary embolism. Lateral left upper lung groundglass opacity possibly representing an acute infectious process with stable small bilateral pleural effusions. Physical exam: 03/27/21: Patient seen and evaluated at bedside this morning. Patient appeared more alert today. He was alert to person, place, and time. Patient was not noted to have any visual or auditory hallucinations during assessment. RN reports patient even asked to use bedpan instead of defecating in brief (as patient has been using brief up until this morning). Patient did have an elevated temp of 101.0F. Upon further review of chart it appears on cefepime was discontinued, patient shortly after began having elevated temps. At this time we will provide gram-negative coverage with cefepime and continue vancomycin pending further recommendations by infectious disease. Repeat blood cultures showing no growth after 144 hours. Leukocytosis remains with WBC count of 12.80. Patient remains tachycardic. Hypomagnesemia with magnesium of 1.6, orders for replacement. Patient reports pain in his legs and ankles remains with any movement. He continues to deny any other complaints at this time including chest pain, palpitations, shortness of breath, abdominal pain, or any other complaints. General: Nontoxic, no distress and appears stated age. Derm: Skin warm and dry, normal coloration for ethnicity. Multiple bruises and abrasions covering upper and lower extremities in different stages of healing. red rash to buttocks Head: Atraumatic, normocephalic and symmetric. Eyes: No lid lag, and anicteric sclera. Slight swelling and bruising surrounding left orbital region. Mouth: No lip lesions, mucus membranes moist Cardiovascular: Regular rhythm and tachycardic rate, no murmur, positive posterior tibial pulses bilaterally, and cap refill < 2 seconds. Lungs: Respirations even, regular, and unlabored on room air. Lungs CTA bilaterally, no rhonchi, no rales, no wheezing, and no accessory muscle usage. GI/: soft, nontender to palpation, no guarding, no appreciable organomegaly. Rendon catheter in place. Ext: ROM intact. No gross muscle atrophy, no edema, no contractures. erythema and swelling to BLE worse on left. Swelling right knee. Neuro/Psych: Speech clear. Patient able to follow limited commands, alert to person and place only today, confused to time and situation. Patient continues with episodes of visual and auditory hallucinations. Today, patient rubbed his own feces all over hands, nose, and other areas of his body. Assessment and Plan of Care: Acute metabolic encephalopathy Sepsis without septic shock Fever, unclear etiology Concerns about meningitis, ruled out Bacteremia, contamination with staph epidermidis Concerns of RLL Aspiration Pneumonia, questionable -Initial Pro-calcitonin 50.22 and CRP of 8.1, improving with repeat pro- calcitonin 10.40 and CRP 5.1. -Continue IV antibiotics: Vancomycin. Patient again running fevers, orthodoxy 101.0F this morning. Added cefepime back on with vancomycin. -Blood culture showing no growth after 144 hours -CSF fluid not consistent with bacterial meningitis. -HSV PCR negative -MRI of the lumbar spine with no evidence of discitis or prevertebral abscess -Blood gas showed no evidence of acute CO2 narcosis -Thiamine 100 mg twice daily. Hypomagnesemia -Magnesium 1.6, replaced. -We will continue to monitor with repeat a.m. labs. Alcohol abuse with alcohol withdrawal syndrome Delirium tremens Rhabdomyolysis Acute Metabolic Encephalopathy with hallucinations -IV fluid hydration, Thiamine 100 mg twice daily -Seizure precautions, Fall precautions -Computed tomography scan of the head showed no acute findings. -MRI of the brain was no acute finding -Consulted neurology and psychiatry for further evaluation -EEG was abnormal with generalized cerebral dysfunction and evidence of toxic metabolic encephalopathy -Treatment of underlying infectious process, continue IV antibiotics cefepime and vancomycin pending further recommendations by infectious disease Hypokalemia, resolved -We will continue to monitor with repeat a.m. labs. Poor living condition Recurrent episodes of hospital admission for alcohol abuse Major life stressors with possible major depression -Consult placed to psychiatry -finish repair worker consultation Macrocytic anemia mild, Most likely secondary to alcohol abuse No reported GI bleeding -Multiple skin abrasions and bruising in multiple stages of healing -Left eye bruising -No acute fractures identified Hypernatremia, resolved status post administration of IV fluids. -We will continue to monitor with repeat a.m. labs. CODE STATUS: Full code DVT prophylaxis: SCDs Discussed with: Patient and RN Anticipated discharge date: Clinical course to determine Anticipated discharge place: Extended care facility/prison facility A total of 45 minutes was spent on the care of this complex patient more than 50% of the time was spent in counseling and care coordination. Objective - Vital Signs Vital signs: Vital Signs Temp 101.0 F H 03/27/21 07:46 Pulse 106 H 03/27/21 07:46 Resp 18 03/27/21 07:46 BP 127/85 03/27/21 07:46 Pulse Ox 95 03/27/21 07:46 Intake & Output 03/26/21 03/27/21 03/27/21 18:59 06:59 18:59 Intake Total 390 Output Total 300 Balance 390 -300 Intake: Oral 390 Output: Urine 300 Other: Voiding Method Diaper Diaper External Catheter # Voids 1 1 # Bowel Movements 3 - Labs CBC & Chem 7: 03/27/21 06:45 03/27/21 06:45 Labs: Abnormal Lab Results - Last 24 Hours (Table) 03/26/21 03/26/21 03/27/21 Range/Units 11:40 16:28 02:02 POC Glucose (mg/dL) 112 H 123 H 115 H (75-99) mg/dL Microbiology - Last 24 Hours (Table) 03/20/21 17:40 Blood Culture - Final Blood No Growth after 144 hours <Melva Cline - Last Filed: 03/27/21 17:03> Objective - Vital Signs Vital signs: Vital Signs Temp 99.1 F 03/27/21 14:00 Pulse 105 H 03/27/21 14:00 Resp 16 03/27/21 14:00 BP 115/77 03/27/21 14:00 Pulse Ox 97 03/27/21 14:00 Intake & Output 03/26/21 03/27/21 03/27/21 18:59 06:59 18:59 Intake Total 390 Output Total 300 Balance 390 -300 Intake: Oral 390 Output: Urine 300 Other: Voiding Method Diaper Diaper External Catheter # Voids 1 1 # Bowel Movements 3 - Labs CBC & Chem 7: 03/27/21 06:45 03/27/21 06:45 Labs: Abnormal Lab Results - Last 24 Hours (Table) 03/27/21 03/27/21 03/27/21 Range/Units 02:02 06:45 06:45 WBC 12.80 H (4.50-10.00) X 10*3/uL RBC 3.20 L (4.40-5.60) X 10*6/uL Hgb 10.1 L (13.0-17.0) g/dL Hct 30.8 L (39.6-50.0) % RDW 15.5 H (11.5-14.5) % Absolute Nucleated RBC 0.02 H (0.00-0.00) X 10*3/uL NRBC/100 WBC Diff 0.2 H (0.0-0.0) /100 WBCS BUN 5.0 L (9.0-27.0) mg/dL Creatinine 0.3 L (0.6-1.5) mg/dL POC Glucose (mg/dL) 115 H (75-99) mg/dL Calcium 8.3 L (8.7-10.3) mg/dL 03/27/21 03/27/21 Range/Units 11:40 16:40 WBC (4.50-10.00) X 10*3/uL RBC (4.40-5.60) X 10*6/uL Hgb (13.0-17.0) g/dL Hct (39.6-50.0) % RDW (11.5-14.5) % Absolute Nucleated RBC (0.00-0.00) X 10*3/uL NRBC/100 WBC Diff (0.0-0.0) /100 WBCS BUN (9.0-27.0) mg/dL Creatinine (0.6-1.5) mg/dL POC Glucose (mg/dL) 136 H 144 H (75-99) mg/dL Calcium (8.7-10.3) mg/dL Microbiology - Last 24 Hours (Table) 03/20/21 17:40 Blood Culture - Final Blood No Growth after 144 hours Assessment and Plan Assessment: Patient seen and examined independently. Patient was also seen by Ivan Maharaj NP and case was discussed. I am in agreement with subjective, physical exam, assessment and plan as written above and amended below. Patient is alert and oriented 2 today. He denies any pain, no shortness of breath, no nausea or vomiting. General: non toxic, no distress, appears at stated age Derm: Multiple areas of abrasion in bilateral lower extremities, multiple areas of ecchymosis in various stages of healing warm, dry Head: atraumatic, normocephalic, symmetric Eyes: EOMI, no lid lag, anicteric sclera Mouth: no lip lesion, mucus membranes moist Cardiovascular: S1S2 reg, no murmur, positive posterior tibial pulse bilateral, Lungs: Coarse breath sounds bilateral, no rhonchi, no rales , no accessory muscle use Abdominal: soft, nontender to palpation, no guarding, no appreciable organomegaly Ext: no gross muscle atrophy, no edema, no contractures Neuro: CN II-XI grossly intact, no focal neuro deficits Psych: Alert, oriented, appropriate affect
[2021-03-27] MEDS: MAGNESIUM SULFATE-D5W PMX 1 GM in DEXTROSE/WATER 1 100ML.BAG IVPB SCH ×2 (15:37→16:48)
[2021-03-27 16:41] LABS: Glucose,Whole Blood 144 mg/dL (75-99)
[2021-03-27] MEDS ORDERED: OLANZapine 10 MG VIAL IM STA (18:00)
--- NOTE | 2021-03-28 00:12 | PN ---
PROGRESS NOTE DATE OF SERVICE: 03/27/2021 REASON FOR FOLLOWUP: Fever. INTERVAL HISTORY: The patient has been running a fever again this morning with a temperature of 101 degrees Fahrenheit. The patient is breathing comfortably on room air. Remains to be pleasantly confused. Denies having any chest pain or cough. No abdominal pain. No diarrhea has been reported. PHYSICAL EXAMINATION: Blood pressure 134/58 with a pulse of 126, temperature 98.5. He is 95% on room air. General description is a middle-aged male lying in bed in no distress. Respiratory system: Unlabored breathing, clear to auscultation anteriorly. Heart S1, S2. Regular rate and rhythm. Abdomen soft, no tenderness. Left ankle swelling has decreased. LABS: Chest x-ray, no acute cardiopulmonary process. DIAGNOSTIC IMPRESSION AND PLAN: Patient with fever in this patient did have extensive workup including CT of the chest, CT of abdomen and pelvis and lower extremity CT and has been negative. A WBC scan pending. He is currently covered with empiric antibiotic vancomycin and cefepime, to continue. Prognosis remains to be guarded. Continue supportive care. MMODL / IJN: [id number] /
[2021-03-28] MEDS: VANCOMYCIN 1,500 MG in SODIUM CHLORIDE 0.9% 250 ML IVPB SCH ×3 (00:16→16:05)
[2021-03-28] MEDS: CEFEPIME 2 GM in SODIUM CHLORIDE 0.9% 100 ML IVPB SCH ×3 (00:17→16:06)
[2021-03-28 00:39] LABS: Glucose,Whole Blood 111 mg/dL (75-99)
[2021-03-28] MEDS ORDERED: OLANZapine 10 MG VIAL IM STA (03:00)
[2021-03-28 06:00] LABS: Glucose,Whole Blood 92 mg/dL (75-99)
[2021-03-28 07:13] LABS: Glucose,Whole Blood 89 mg/dL (75-99)
[2021-03-28] MEDS: THIAMINE 100 MG in SODIUM CHLORIDE 0.9% 50 ML IVPB SCH ×2 (08:42→21:08)
[2021-03-28] MEDS: lisinopriL 10 MG TAB PO SCH (08:46)
[2021-03-28] MEDS: PYRIDOXINE 50 MG TAB PO SCH ×2 (08:46→21:07)
[2021-03-28] MEDS: MEGESTROL 400 MG/10 ML CUP PO SCH (08:46)
[2021-03-28] MEDS: PANTOPRAZOLE 40 MG TABLET PO SCH (08:46)
[2021-03-28] MEDS: FOLIC ACID 1 MG TAB PO SCH (08:46)
[2021-03-28] MEDS: HEPARIN SODIUM,PORCINE/PF 5,000 UNIT/0.5 ML SYRINGE SQ SCH ×2 (08:46→16:05)
[2021-03-28] MEDS: amLODIPine 5 MG TAB PO SCH ×2 (08:46→21:07)
[2021-03-28] MEDS: NYSTATIN 100,000 UNIT/GM OINT 30 GM TUBE TOPICAL SCH ×2 (09:20→16:06)
--- NOTE | 2021-03-28 10:38 | P.PN ---
<Ivan Maharaj - Last Filed: 03/28/21 12:16> Subjective Progress Note Date: 03/28/21 Hospital course: Patient is a 55-year-old male with a past medical history of EtOH abuse. He p resented to the hospital on 03/14/21 after being found delirious and confused by his neighbor at home. Patient was reportedly found laying on the floor covered in his own feces with empty alcohol bottles surrounding him. Patient presented to the hospital with multiple bruises and abrasions in different stages of healing. UDS positive for marijuana and benzodiazepines. EtOH level was less than 10. Patient was initially found to have hypernatremia with sodium of 152, hyponatremia with potassium of 3.2, hyperchloremia with chloride of 114 and elevated creatinine kinase of 999. He was admitted for acute metabolic encephalopathy with hallucinations and EtOH withdrawal, rhabdomyolysis, and se psis without sepsis shock. Patient has underwent multiple labs and imaging see below. Currently admitted under our services with consultation to pulmonology, infectious disease, neurology, and orthopedic surgery. Labs and imaging: Initial blood culture showing no results after 144 hours, CSF fluid negative wound culture right knee negatives wound culture left ankle preliminary results negative, 1 out of 2 blood culture results repeated on 03/19/21 positive for Staphylococcus epidermidis, possibly contaminated, and repeat blood culture drawn on 03/20/21 showing no growth after 24 hours. TSH 1.770. Pro-calcitonin 50.22 and CRP of 8.1. Chest x-ray completed 03/14/21 revealed minimal subsegmental atelectasis at the right lung base without change. CT head and cervical spine completed 03/14/21 negative for acute intercranial abnormality with spondylitic changes to cervical spine with no acute fractures or abnormalities. CT facial bones without contrast showing evidence of old blowout fracture on the floor of the left bony orbit with reported displacement of 4 mm and is negative for acute fractures. X-ray right elbow olecranon process spur formation with posterior soft tissue swelling negative for acute fractures. Bilateral carotid Dopplers negative for hemodynamically significant internal carotid artery stenosis Venous Doppler left lower extremity negative for DVT. X-ray left ankle negative for acute fracture. MRI brain with and without contrast showing mild atrophy with mild subependymal white matter increased signal around the lateral ventricles measuring up to 5 mm in thickness no evidence of cortical infarct. MRI lumbar spine with and without contrast showing no evidence of discitis, no significant disc space narrowing or acute fractures. Multilevel mild facet arthroplasty and mild lateral recess stenosis with multilevel mild posterior disc bulging without spinal stenosis. CT left lower extremity showing chronic changes with soft tissue swelling and calcaneal spurring, negative for acute fracture. 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 Chest CTA negative for acute pulmonary embolism. Lateral left upper lung groundglass opacity possibly representing an acute infectious process with stable small bilateral pleural effusions. Physical exam: 03/28/21: Patient seen and evaluated at bedside this morning. Patient resting in bed this morning. He is alert to person and place and again confused to time and situation. Elevated temperature has improved since restarting patient on cefepime with high over past 24 hours being 99.1F. Patient continues to have reports of pain in his legs and ankles. Attempts made at contacting patient's daughter for updates. If patient remains afebrile and condition stable, plans for discharge to prison facility once medicaid approval is completed. Social work/Case Management assisting pt's daughter with application process. General: Nontoxic, no distress and appears stated age. Derm: Skin warm and dry, normal coloration for ethnicity. Multiple bruises and abrasions covering upper and lower extremities in different stages of healing. red rash to buttocks Head: Atraumatic, normocephalic and symmetric. Eyes: No lid lag, and anicteric sclera. Slight swelling and bruising s urrounding left orbital region. Mouth: No lip lesions, mucus membranes moist Cardiovascular: Regular rhythm and tachycardic rate, no murmur, positive posterior tibial pulses bilaterally, and cap refill < 2 seconds. Lungs: Respirations even, regular, and unlabored on room air. Lungs CTA bilaterally, no rhonchi, no rales, no wheezing, and no accessory muscle usage. GI/: soft, nontender to palpation, no guarding, no appreciable organomegaly. Rendon catheter in place. Ext: ROM intact. No gross muscle atrophy, no edema, no contractures. erythema and swelling to BLE worse on left. Swelling right knee. Neuro/Psych: Speech clear. Patient able to follow limited commands, alert to person and place only today, confused to time and situation. Assessment and Plan of Care: Acute metabolic encephalopathy Sepsis without septic shock Fever, unclear etiology Concerns about meningitis, ruled out Bacteremia ruled out, contamination with staph epidermidis Concerns of RLL Aspiration Pneumonia, questionable -Initial Pro-calcitonin 50.22 and CRP of 8.1, improving with repeat pro- calcitonin 10.40 and CRP 5.1. -Continue IV antibiotics: Vancomycin. Patient again running fevers, confucianist 101.0F this morning. Added cefepime back on with vancomycin. -Blood culture showing no growth after 144 hours -CSF fluid not consistent with bacterial meningitis. -HSV PCR negative -MRI of the lumbar spine with no evidence of discitis or prevertebral abscess -Blood gas showed no evidence of acute CO2 narcosis -Thiamine 100 mg twice daily. Hypomagnesemia -Replaced -We will continue to monitor with repeat a.m. labs. Alcohol abuse with alcohol withdrawal syndrome Delirium tremens Rhabdomyolysis Acute Metabolic Encephalopathy with hallucinations -IV fluid hydration, Thiamine 100 mg twice daily -Seizure precautions, Fall precautions -Computed tomography scan of the head showed no acute findings. -MRI of the brain was no acute finding -Consulted neurology and psychiatry for further evaluation -EEG was abnormal with generalized cerebral dysfunction and evidence of toxic metabolic encephalopathy -Treatment of underlying infectious process, continue IV antibiotics cefepime and vancomycin pending further recommendations by infectious disease Hypokalemia, resolved -We will continue to monitor with repeat a.m. labs. Poor living condition Recurrent episodes of hospital admission for alcohol abuse Major life stressors with possible major depression -Consult placed to psychiatry -pack worker consultation Macrocytic anemia mild, Most likely secondary to alcohol abuse No reported GI bleeding -Multiple skin abrasions and bruising in multiple stages of healing -Left eye bruising -No acute fractures identified Hypernatremia, resolved status post administration of IV fluids. -We will continue to monitor with repeat a.m. labs. CODE STATUS: Full code DVT prophylaxis: SCDs Discussed with: Patient and RN, left voicemail with patient's daughter/legal guardian Starla Owens at 10:38 AM. Anticipated discharge date: Clinical course to determine Anticipated discharge place: Extended care facility/prison facility A total of 45 minutes was spent on the care of this complex patient more than 50% of the time was spent in counseling and care coordination. Objective - Vital Signs Vital signs: Vital Signs Temp 98.5 F 03/28/21 07:53 Pulse 98 03/28/21 07:53 Resp 18 03/28/21 07:53 BP 129/82 03/28/21 07:53 Pulse Ox 96 03/28/21 07:53 Intake & Output 03/27/21 03/28/21 03/28/21 18:59 06:59 18:59 Intake Total 540 Output Total 900 Balance 540 -900 Intake: Oral 540 Output: Urine 900 Other: Voiding Method Diaper Diaper External Catheter External Catheter # Voids 4 3 # Bowel Movements 1 1 - Labs CBC & Chem 7: 03/27/21 06:45 03/27/21 06:45 Labs: Abnormal Lab Results - Last 24 Hours (Table) 03/27/21 03/27/21 03/27/21 Range/Units 06:45 06:45 11:40 WBC 12.80 H (4.50-10.00) X 10*3/uL RBC 3.20 L (4.40-5.60) X 10*6/uL Hgb 10.1 L (13.0-17.0) g/dL Hct 30.8 L (39.6-50.0) % RDW 15.5 H (11.5-14.5) % Absolute Nucleated RBC 0.02 H (0.00-0.00) X 10*3/uL NRBC/100 WBC Diff 0.2 H (0.0-0.0) /100 WBCS BUN 5.0 L (9.0-27.0) mg/dL Creatinine 0.3 L (0.6-1.5) mg/dL POC Glucose (mg/dL) 136 H (75-99) mg/dL Calcium 8.3 L (8.7-10.3) mg/dL 03/27/21 03/28/21 Range/Units 16:40 00:38 WBC (4.50-10.00) X 10*3/uL RBC (4.40-5.60) X 10*6/uL Hgb (13.0-17.0) g/dL Hct (39.6-50.0) % RDW (11.5-14.5) % Absolute Nucleated RBC (0.00-0.00) X 10*3/uL NRBC/100 WBC Diff (0.0-0.0) /100 WBCS BUN (9.0-27.0) mg/dL Creatinine (0.6-1.5) mg/dL POC Glucose (mg/dL) 144 H 111 H (75-99) mg/dL Calcium (8.7-10.3) mg/dL <SonMelva Carl - Last Filed: 03/28/21 14:25> Subjective Patient seen and examined independently. Patient was also seen by Ivan Maharaj NP and case was discussed. I am in agreement with subjective, physical exam, assessment and plan as written above and amended below. Patient is sleeping but awakes. He complains of some low back pain. Denies any nausea or vomiting. Was agitated yesterday evening but has since been more calm. General: non toxic, no distress, appears at stated age Derm: Multiple areas of excoriations and abrasions, multiple areas of ecchymoses in various stages of healing warm, dry Head: atraumatic, normocephalic, symmetric Eyes: EOMI, no lid lag, anicteric sclera Mouth: no lip lesion, mucus membranes moist Cardiovascular: S1S2 reg, no murmur, positive posterior tibial pulse bilateral, Lungs: Coarse breath sounds bilateral bilateral, no rhonchi, no rales , no accessory muscle use Abdominal: soft, nontender to palpation, no guarding, no appreciable organomegaly Ext: no gross muscle atrophy, no edema, no contractures Neuro: CN II-XI grossly intact, no focal neuro deficits Psych: Alert, conversational Objective - Vital Signs Vital signs: Vital Signs Temp 98.5 F 03/28/21 07:53 Pulse 98 03/28/21 07:53 Resp 18 03/28/21 07:53 BP 129/82 03/28/21 07:53 Pulse Ox 96 03/28/21 07:53 Intake & Output 03/27/21 03/28/21 03/28/21 18:59 06:59 18:59 Intake Total 540 Output Total 900 Balance 540 -900 Weight 68.5 kg Intake: Oral 540 Output: Urine 900 Other: Voiding Method Diaper Diaper External Catheter External Catheter # Voids 4 3 # Bowel Movements 1 1 - Labs CBC & Chem 7: 03/27/21 06:45 03/27/21 06:45 Labs: Abnormal Lab Results - Last 24 Hours (Table) 03/27/21 03/28/21 Range/Units 16:40 00:38 POC Glucose (mg/dL) 144 H 111 H (75-99) mg/dL
[2021-03-28 11:53] LABS: Glucose,Whole Blood 90 mg/dL (75-99)
[2021-03-28 12:27] VITALS: BMI 21.0
[2021-03-28 16:49] LABS: Glucose,Whole Blood 118 mg/dL (75-99)
--- NOTE | 2021-03-28 21:31 | PN ---
PROGRESS NOTE DATE OF SERVICE: 03/28/2021 REASON FOR FOLLOWUP: Fever. INTERVAL HISTORY: The patient's overall fever pattern has improved. He did have a low-grade fever of 100 degrees Fahrenheit this afternoon. The patient remains pleasantly confused. Denies having any chest pain or cough. Currently on room air. No vomiting or diarrhea has been reported by the nursing staff. PHYSICAL EXAMINATION: Blood pressure 174/79 with a pulse of 117, temperature 100. He is 95% on room air. GENERAL DESCRIPTION: General description is a middle-aged male lying in bed in no distress. RESPIRATORY SYSTEM: Unlabored breathing. Decreased breath sounds at the bases. No wheeze. HEART: S1, S2. Regular rate and rhythm. ABDOMEN: Soft. No tenderness. LABS: No new labs have been obtained today. DIAGNOSTIC IMPRESSION AND PLAN: Patient with a fever in this patient who did have an extensive workup, and most of it has been negative. We are waiting for the WBC scan. Continue with cefepime and vancomycin and monitor his clinical course closely. MMODL / IJN: [id number] /
[2021-03-29] MEDS: CEFEPIME 2 GM in SODIUM CHLORIDE 0.9% 100 ML IVPB SCH ×3 (00:15→16:24)
[2021-03-29] MEDS: HEPARIN SODIUM,PORCINE/PF 5,000 UNIT/0.5 ML SYRINGE SQ SCH ×3 (00:16→16:17)
[2021-03-29] MEDS: NYSTATIN 100,000 UNIT/GM OINT 30 GM TUBE TOPICAL SCH ×4 (00:16→22:32)
[2021-03-29] MEDS: VANCOMYCIN 1,500 MG in SODIUM CHLORIDE 0.9% 250 ML IVPB SCH ×4 (00:16→17:49)
[2021-03-29 00:42] LABS: Glucose,Whole Blood 98 mg/dL (75-99)
[2021-03-29 06:39] LABS: Glucose,Whole Blood 99 mg/dL (75-99)
[2021-03-29] MEDS: PANTOPRAZOLE 40 MG TABLET PO SCH (07:49)
[2021-03-29 07:57] LABS: African American GFR (CKD) >90 (>60 ml/min/1.73 sqM); Anion Gap 9 mmol/L; Blood Urea Nitrogen 5 mg/dL (9-20); Calcium 8.5 mg/dL (8.4-10.2); Carbon Dioxide 23 mmol/L (22-30); Chloride 109 mmol/L (98-107); Glucose 97 mg/dL (74-99); Non-African American GFR(CKD) >90 (>60 ml/min/1.73 sqM); Potassium 3.4 mmol/L (3.5-5.1); Sodium 141 mmol/L (137-145)
--- NOTE | 2021-03-29 08:06 | P.PN ---
Subjective Progress Note Date: 03/29/21 Hospital course: Patient is a 55-year-old male with a past medical history of EtOH abuse. He presented to the hospital on 03/14/21 after being found delirious and confused by his neighbor at home. Patient was reportedly found laying on the floor covered in his own feces with empty alcohol bottles surrounding him. Patient presented to the hospital with multiple bruises and abrasions in different stages of healing. UDS positive for marijuana and benzodiazepines. EtOH level was less than 10. Patient was initially found to have hypernatremia with sodium of 152, hyponatremia with potassium of 3.2, hyperchloremia with chloride of 114 and elevated creatinine kinase of 999. He was admitted for acute metabolic encephalopathy with hallucinations and EtOH withdrawal, rhabdomyolysis, and sepsis without sepsis shock. Patient has underwent multiple labs and imaging see below. Currently admitted under our services with consultation to pulmonology, infectious disease, neurology, and orthopedic surgery. Labs and imaging: Initial blood culture showing no results after 144 hours, CSF fluid negative wound culture right knee negatives wound culture left ankle preliminary results negative, 1 out of 2 blood culture results repeated on 03/19/21 positive for Staphylococcus epidermidis, possibly contaminated, and repeat blood culture drawn on 03/20/21 showing no growth after 24 hours. TSH 1.770. Pro-calcitonin 50.22 and CRP of 8.1. Chest x-ray completed 03/14/21 revealed minimal subsegmental atelectasis at the r ight lung base without change. CT head and cervical spine completed 03/14/21 negative for acute intercranial abnormality with spondylitic changes to cervical spine with no acute fractures or abnormalities. CT facial bones without contrast showing evidence of old blowout fracture on the floor of the left bony orbit with reported displacement of 4 mm and is negative for acute fractures. X-ray right elbow olecranon process spur formation with posterior soft tissue swelling negative for acute fractures. Bilateral carotid Dopplers negative for hemodynamically significant internal carotid artery stenosis. Venous Doppler left lower extremity negative for DVT. X-ray left ankle negative for acute fracture. MRI brain with and without contrast showing mild atrophy with mild subependymal white matter increased signal around the lateral ventricles measuring up to 5 mm in thickness no evidence of cortical infarct. MRI lumbar spine with and without contrast showing no evidence of discitis, no significant disc space narrowing or acute fractures. Multilevel mild facet arthroplasty and mild lateral recess stenosis with multilevel mild posterior disc bulging without spinal stenosis. CT left lower extremity showing chronic changes with soft tissue swelling and calcaneal spurring, negative for acute fracture. 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 Chest CTA negative for acute pulmonary embolism. Lateral left upper lung groundglass opacity possibly representing an acute infectious process with stable small bilateral pleural effusions. Physical exam: 03/29/21: Patient seen and evaluated at bedside this morning. Patient resting in bed this morning. He has removed his gown and remains alert to person and place only. Temperature high over the past 24 hours is 100.0F, patient remains on cefepime and vancomycin. CBC revealing leukocytosis with WBC count of 12.36 and macrocytic microchromic anemia with hemoglobin of 10.0, hematocrit 31.4, MCV 101.0, MCH 32.2, MCHC 31.8, and RDW of 15.9. Hypokalemia present with potassium 3.4, replacement ordered. Attempts made at contacting patient's daughter for updates. If patient remains afebrile and condition stable, [facility] once [facility] approval is completed. Social work/Case Management assisting pt's daughter with application process. General: Nontoxic, no distress and appears stated age. Derm: Skin warm and dry, normal coloration for ethnicity. Multiple bruises and abrasions covering upper and lower extremities in different stages of healing. red rash to buttocks Head: Atraumatic, normocephalic and symmetric. Eyes: No lid lag, and anicteric sclera. Slight swelling and bruising surrounding left orbital region. Mouth: No lip lesions, mucus membranes moist Cardiovascular: Regular rhythm and tachycardic rate, no murmur, positive posteri or tibial pulses bilaterally, and cap refill < 2 seconds. Lungs: Respirations even, regular, and unlabored on room air. Lungs CTA bilaterally, no rhonchi, no rales, no wheezing, and no accessory muscle usage. GI/: soft, nontender to palpation, no guarding, no appreciable organomegaly. Rendon catheter in place. Ext: ROM intact. No gross muscle atrophy, no edema, no contractures. erythema and swelling to BLE worse on left. Swelling right knee. Neuro/Psych: Speech clear. Patient able to follow limited commands, alert to person and place only today, confused to time and situation. Assessment and Plan of Care: Acute metabolic encephalopathy Sepsis without septic shock Concerns of RLL Aspiration Pneumonia, questionable -Initial Pro-calcitonin 50.22 and CRP of 8.1, improving with repeat pro- calcitonin 10.40 and CRP 5.1. -Continue IV antibiotics: Vancomycin. Patient again running fevers, mormonism 101.0F this morning. Added cefepime back on with vancomycin. -Blood culture showing no growth after 144 hours -CSF fluid not consistent with bacterial meningitis. -HSV PCR negative -MRI of the lumbar spine with no evidence of discitis or prevertebral abscess -Blood gas showed no evidence of acute CO2 narcosis -Thiamine 100 mg twice daily. Hypomagnesemia -Replaced -We will continue to monitor with repeat a.m. labs. Hypokalemia -Potassium 3.4, replaced -We will continue to monitor with repeat a.m. labs. Alcohol abuse with alcohol withdrawal syndrome Delirium tremens Rhabdomyolysis Acute Metabolic Encephalopathy with hallucinations -IV fluid hydration, Thiamine 100 mg twice daily -Seizure precautions, Fall precautions -Computed tomography scan of the head showed no acute findings. -MRI of the brain was no acute finding -Consulted neurology and psychiatry for further evaluation -EEG was abnormal with generalized cerebral dysfunction and evidence of toxic metabolic encephalopathy -Treatment of underlying infectious process, continue IV antibiotics cefepime and vancomycin pending further recommendations by infectious disease Vitamin B6 Deficiency -Daily vitamin replacment. Hypokalemia, resolved -We will continue to monitor with repeat a.m. labs. Poor living condition Recurrent episodes of hospital admission for alcohol abuse Major life stressors with possible major depression -Consult placed to psychiatry -hatchery worker consultation Hypernatremia, resolved status post administration of IV fluids. -We will continue to monitor with repeat a.m. labs. CODE STATUS: Full code DVT prophylaxis: SCDs Discussed with: Patient and RN, and pt's daughter/legal guardian Starla Owens via telephone at 12:00 PM. Anticipated discharge date: Clinical course to determine Anticipated discharge place: Extended care facility/usp facility A total of 45 minutes was spent on the care of this complex patient more than 50% of the time was spent in counseling and care coordination. Objective - Vital Signs Vital signs: Vital Signs Temp 98.9 F 03/29/21 07:16 Pulse 108 H 03/29/21 07:16 Resp 18 03/29/21 07:16 BP 132/91 03/29/21 07:16 Pulse Ox 98 03/29/21 07:16 Intake & Output 03/28/21 03/29/21 03/29/21 18:59 06:59 18:59 Weight 68.5 kg Other: Voiding Method Diaper Diaper External Catheter External Catheter # Voids 2 5 # Bowel Movements 2 - Labs CBC & Chem 7: 03/29/21 06:43 03/29/21 06:43 Labs: Abnormal Lab Results - Last 24 Hours (Table) 03/28/21 03/29/21 Range/Units 16:47 06:43 Potassium 3.4 L (3.5-5.1) mmol/L Chloride 109 H (98-107) mmol/L BUN 5 L (9-20) mg/dL Creatinine 0.31 L (0.66-1.25) mg/dL POC Glucose (mg/dL) 118 H (75-99) mg/dL
--- NOTE | 2021-03-29 09:19 | P.PN ---
Subjective Progress Note Date: 03/28/21 03/28/2021: Patient was seen for a follow-up. Patient complains of extreme muscle pain and fatigue. He tells me that he was attacked by a dog and he fell down on the ground. He got up and was again attacked by the dog and fell again. This happened a total of 3 times until he got in someone's garage. He states that this happened when there was a big snowstorm in August 2020. He also suffered from a torn meniscus between summer and fall when he was using a snowblower and the handle snapped. He still could not tell me the exact reason that he came to the hospital. He continues to have pain in the legs, right much worse than left. Please refer to examination below. Right ankle appears swollen. He has peripheral edema. WORK-UP: * CPK is 999 on 03/14 but 217 on 03/16--improved. * B12 582 normal, however at MMA is elevated 0.46 (normal <0.40). This may i ndicate intracellular deficiency of B12. Patient's folate 5.7, TSH 1.77, RPR nonreactive. * Low Vitamin B6 3 (normal is 5-50). * Ammonia level 12 (normal) * ESR 64 on 03/19 and the repeated ESR 77 on 03/21/2021. * MRI of the brain on 03/18/21 revealed mild atrophy. Mild subependymal white matter increased signal around the lateral ventricles measuring up to 5 mm in thickness. No evidence of cortical infarct. * REPEAT MRI brain w/o (03/23/21): I ordered MRI the brain with and without but because the patient was in so much pain that was the study was limited and it was done only without. The MR the brain is reported as limited examination due to patient's pain. No obvious significant intracranial abnormality. * MRI of the lumbar spine with and without contrast 03/19/2021 revealed no evidence of discitis. No significant disc space narrowing. No fracture. Multilevel mild facet arthropathy and mild lateral recess stenosis. Multilevel mild posterior disc bulging without spinal stenosis. * CerebroSpinal fluid examination revealed glucose 64 (40-70), proteins 226 (12- 60), total WBC count in CSF 18, out of its 15% monocytes and 85% p olynuclear's. CSF RBC 5175, due to traumatic tap. * Patient's spinal fluid was traumatic because patient was not cooperating. CSF showsCSF shows very mild leukocytosis ( about 2-3 cells above normal after correction for traumatic tap), and very elevated proteins. Cultures negative. HSV-1 and 2 PCR in the CSF are negative. Viral test are negative. Infectious disease following. * Patient had undergone aspiration of right knee and left ankle, both of which have been negative for any growth. No crystals seen in the sinonasal fluid. * Routine EEG on 03/17/21 was reported as abnormal due to background slowing of moderate to severe degree. This is suggestive of generalized cerebral dysf unction, as can be seen with toxic metabolic encephalopathy or due to diffuse structural brain abnormality. No epileptiform activity was seen. * Carotid Doppler was technically difficult due to patient's inability to hold still. No hemodynamically significant ICA stenosis identified on either side. Antegrade flow in both vertebral arteries. * CT of facial bone on 03/14/2021 is reported as there is evidence of old blow out fracture of the floor of the left bony orbits. No acute fracture seen. * Left Lower extremity CT 03/22/2021: is reported as chronic changes as noted. Soft tissue swelling. Calcaneal is spurring. * CT of the abdomen/pelvis: Was reported as fatty infiltration of the liver. Pleural effusion and basilar atelectasis. Elevated right diaphragm could relate to diaphragm paralysis. Subcutaneous edema around the abdomen. Congestive heart failure as possible. These abnormality. New compared to old exam. 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 No acute abn ormality within the abdomen pelvis * CT of the chest is reported as small left apical density. Additional left lateral long-based thickening may be present. At the clinic today says an underlying mass should be considered. No evidence of pneumonia or aspiration pneumonia. Moderate fatty infiltration to the liver. * CT of the chest is reported as suboptimal study without CT chest of for acute pulmonary embolism. Lateral left upper lung groundglass opacity could reflect acute infection process. No significant change from one day earlier. Stable small bilateral pleural effusion noted. Objective - Vital Signs Vital signs: Vital Signs Temp 98.6 F 03/28/21 14:20 Pulse 117 H 03/28/21 14:10 Resp 18 03/28/21 14:10 BP 134/79 03/28/21 14:10 Pulse Ox 95 03/28/21 14:10 Intake & Output 03/27/21 03/28/21 03/28/21 18:59 06:59 18:59 Intake Total 540 Output Total 900 Balance 540 -900 Weight 68.5 kg Intake: Oral 540 Output: Urine 900 Other: Voiding Method Diaper Diaper External Catheter External Catheter # Voids 4 3 # Bowel Movements 1 1 - Exam Patient is a middle aged male, appears older than his stated age. Patient states it is early March and the year is 2050. He knows that he is in [facility] in [place] and states the current president is "radha Kowalski". Patient's speech and language functions have much improved. On cranial examination pupils are round and reacting to light, visual licea are full on confrontation, extraocular muscles are intact. Face is symmetric and tongue protrudes to the midline. Palatal elevation is normal, hearing and shoulder shrug normal. On muscle strength testing, the strength is normal in upper extremities. In the lower extremities, his hip flexion is 1-2 on the right, 5 on the left. Ankle dorsiflexion is 4 on the right, 4+ left. There is significant pain in both legs, but right side is much worse than the left with any movement. Right knee appears swollen. He has peripheral edema. Sensations are equal. No ataxia for [id number] testing. Reflexes are 3 in the upper limbs, 2 at the right knee, 3 at the left knee. 1+ at both ankles and plantars are downgoing. Chest is clear, abdomen is soft. - Labs CBC & Chem 7: 03/29/21 06:43 03/29/21 06:43 Labs: Abnormal Lab Results - Last 24 Hours (Table) 03/28/21 03/28/21 Range/Units 00:38 16:47 POC Glucose (mg/dL) 111 H 118 H (75-99) mg/dL Assessment and Plan Assessment: * 55-year-old male with history of alcoholism, was found at laying with fecal matter with multiple bruises, scratches and pressure sores over dependent areas, indicating patient has been on the floor for fairly long period of time. Last period of contact with his friends was on Sunday, 3 days prior to arrival. Patient has improved slightly as compared to yesterday. Still continues to be significantly delirious/encephalopathic. 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 Patient now has developed temperature 101.4. No definitive evidence of meningitis/encephalitis based upon CSF results. * Fever of unknown etiology. * Vitamin B6 deficiency * Hypertension * Right leg pain, unclear etiology. Rule out radiculopathy. * History of alcoholism * History of multiple falls. * History of marijuana use. Plan: * Patient's mentation has improved. He continues to complain of severe muscle pain and fatigue. We will check ESR, Lyme titer, repeat CK. We will also check West Nile virus IgG and IgM in the serum. Patient's T-max is 100.0 Fahrenheit today at 2:10 PM, whereas it was 101.0 on 03/27/2021. Suggest repeat lumbar puncture to follow-up on abnormal spinal fluid. Suggest West Nile virus testing. Infectious disease following. No source identified yet. Patient scheduled for whole body WBC scan. * Patient's previous CSF shows very mild leukocytosis (after correction for traumatic tap), however very highly elevated proteins. Cultures were negative. HSV-1 and 2 PCR in the CSF are negative. Infectious disease following. Acyclovir has been discontinued. Antibiotics have been tapered to control cryptogenic infection. Currently on cefepime and vancomycin. Patient had undergone aspiration of right knee and left ankle, both of which have been negative for any growth. No crystals seen in the sinonasal fluid. * EEG was abnormal due to background slowing of moderate to severe degree. This is suggestive of generalized cerebral dysfunction, as can be seen with toxic metabolic encephalopathy or due to diffuse structural brain abnormality. No epileptiform activity was seen. * Carotid Doppler was technically difficult due to patient's inability to hold still. No hemodynamically significant ICA stenosis identified on either side. Antegrade flow in both vertebral arteries. * B12 582 normal, however at MMA is elevated 0.46 (normal <0.40). This may indicate intracellular deficiency of B12. Patient's folate 5.7, TSH 1.77, RPR nonreactive. We will start folate and B12 replacement. B6 was low 3, currently on replacement. * Thiamine, folate. [facility] protocol. * Orthopedic consultation input appreciated. Patient had undergone left ankle and right knee joint aspiration. 40 as he is 10. His * MRI of the lumbar spine with and without contrast revealed no evidence of discitis. No significant disc space narrowing. No fracture. Multilevel mild facet arthropathy and mild lateral recess stenosis. Multilevel mild posterior disc bulging without spinal stenosis. * Spinal fluid examination revealed glucose 64 (40-70), proteins 226 (12-60), total WBC count in CSF 18, out of its 15% monocytes and 85% polynuclear's. CSF RBC 5175, due to traumatic tap. * MRI of the brain with and without contrast revealed mild atrophy. Mild subependymal white matter increased signal around the lateral ventricles measuring up to 5 mm in thickness. No evidence of cortical infarct. Repeat MRI of the brain without contrast showed no acute process.
[2021-03-29] MEDS: MEGESTROL 400 MG/10 ML CUP PO SCH (09:25)
[2021-03-29] MEDS: amLODIPine 5 MG TAB PO SCH ×2 (09:25→22:32)
[2021-03-29] MEDS: lisinopriL 10 MG TAB PO SCH (09:25)
[2021-03-29] MEDS: FOLIC ACID 1 MG TAB PO SCH (09:25)
[2021-03-29] MEDS: PYRIDOXINE 50 MG TAB PO SCH ×2 (09:26→22:32)
--- NOTE | 2021-03-29 09:34 | CDI ---
Documentation Clarification Form Date: 03/29/2021 08:52:56 AM From: Nohemi Rawls RN CCDS Admit Date: 03/14/2021 06:12:00 PM Patient Name: Mario Alberto Noel Visit Number: [id number] Discharge Date: ATTENTION: The Clinical Documentation Specialists (CDI) and [facility] Coding Staff appreciate your assistance in clarifying documentation. Please respond to the clarification below the line at the bottom and electronically sign. The CDI & [facility] Coding staff will review the response and follow-up if needed. Please note: Queries are made part of the Legal Health Record. If you have any questions, please contact the author of this message via ITS. Dr. Petra Horn The patient presented with the following clinical indicators. Additional clarification regarding the etiology/cause of the clinical indicators is requested. History/Risk Factors: 55-year-old male presents to the ED via EMS after being found by neighbors on the floor covered in feces with empty bottles of alcohol around him. Medical history: HTN, Liver disease and alcohol abuse. 03/14, H&P. Clinical Indicators: 03/28 Medicine progress note: Fever, unclear etiology. Meningitis ruled out. Bacteremia, ruled out, contamination with staph epidermidis. Concern of RLL Aspiration pneumonia questionable. WBC: 03/14 7.8 Blood cultures: 03/17 No growth after 144 hours. CSF stain: 03/18 No growth after 4 days. Right knee culture: No organism seen. Left ankle culture: No organism seen CXR: 03/14 Minimal subsegmental atelectasis right lung base without change. Vitals signs: 03/14 B/P 135/73, HR 100, Temp 99.1 F Oral, RR 20, SpO2 94% room air. Treatment: ID Consult: Progress note 03/28 Patient with a fever in this patient who did have an extensive workup, and most of it has been negative. Antibiotics: 03/17 03/21 Vancomycin 1,500mg IVPB Q8H; 03/22 03/25 Vancomycin 1,500mg IVPB Q8H; 03/25 - 03/29 Vancomycin 1,500mg IVPB Q8H; 03/29 to current Vancomycin 1,500mg IVPB Q8H. 03/16 03/23 Cefepime HCI 2gm IVPB Q8HR; 03/23 03/19 Cefepime HCL 2 gm IVPB Q12HR. IV Bolus: 03/14 0.9NS 500 mls/bolus x 1. In your professional opinion, please clarify if these findings signify one of the following conditions: [ ] Sepsis POA related to Aspiration pneumonia [ ] Sepsis POA related to (please specify) [ ] Sepsis, Not POA related to ( please specify) [ ] Sepsis ruled out [ ] Other, please specify [ ] Unable to determine SIRS Criteria: 2 or more of the following may indicate SIRS -Temperature < 96.8F (36C) or > 101.0F (38.3C) -Heart Rate > 90 bpm -Respiratory Rate > 20 breaths/min or PaCO2 < 32 mmHg -White Blood Cell Count > 12,000 or < 4,000 cells/mm3 or > 10% bands (Template Last Reviewed: August 2020) MTDD
[2021-03-29 11:05] LABS: HCT 31.4 % (39.6-50.0); MCH 32.2 pg (27.0-32.0); MCHC 31.8 g/dL (32.0-37.0); Mean Platelet Volume 10.9 fL (9.5-12.2); Platelet Count 391 X 10*3/uL (140-440); RBC 3.11 X 10*6/uL (4.40-5.60); RDW 15.9 % (11.5-14.5); WBC 12.36 X 10*3/uL (4.50-10.00)
[2021-03-29 11:30] LABS: INR 1.1 (<1.2); Prothrombin Time 11.3 sec (9.0-12.0)
[2021-03-29 11:31] LABS: Partial Thromboplastin Time 26.4 sec (22.0-30.0)
[2021-03-29 11:36] LABS: Glucose,Whole Blood 103 mg/dL (75-99)
[2021-03-29] MEDS ORDERED: POTASSIUM CHLORIDE ER 20 MEQ TAB.ER PO STA (11:38)
[2021-03-29] MEDS: THIAMINE 100 MG in SODIUM CHLORIDE 0.9% 50 ML IVPB SCH ×2 (12:45→22:32)
--- NOTE | 2021-03-29 14:08 | P.PN ---
Progress Note - Text Progress Note Date: 03/29/21 Interval History: Patient was seen resting in bed comfortably. The patient is currently alert and oriented in all spheres aside from time. The patient is able to however identify with the current president is as well as recent events including the murray virus and the delta variant. Currently, the patient is not endorsing any auditory or visual hallucinations at this time. The patient states that he has previously witnessed significant hallucinations while undergoing active withdrawal. He denies ever experienced any hallucinations outside the context of alcohol withdrawal. He denies any suicidal or homicidal ideation, intention, and/or plan at this time. He states the closest he felt to feeling like he will did not want to live anymore was when his mother this past July. Despite this, the patient denies any prior attempts at suicide. The patient does endorse a significant history of generalized anxiety. He states that this has worsened over the course of the pandemic. 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 The patient does acknowledge that his primary issue is his heavy alcohol use. He reports that prior to this admission, he has been drinking anywhere between 4-6 Mendez's hard lemonade alcoholic beverages every day. Patient reports that he began drinking at the age of 14 and has been drinking heavily since. He states that alcohol has been used to help manage his anxiety. The patient has been in 12-step programs, following his blue book, and has been to rehabilitation before. The patient acknowledges that he needs to quit alcohol. He is open to referrals for outpatient psychiatric and substance abuse treatment. Mental Status Exam: General Appearance: Patient appears to be stated age is alert, directable, and cooperative. Behavior: Patient is calmly seated without any agitated behavior. Speech: Patient's speech is fluent and nonpressured. Spontaneous slightly dysarthric and viscous. Mood/Affect: Mood is "feeling better", affect is congruent, euthymic, and bright. Suicidality/Homicidality: Patient denies having any suicidal or homicidal ideation intent or plan. Perceptions: Patient denies any visual hallucinations and denies any auditory hallucinations Though content/process: There is no evidence of any delusional thought content and thought process is linear and goal-directed. Memory and concentration: AOX2. The patient is alert and oriented to person and place but not to year. Concentration is grossly intact for the purposes of this session Judgment and insight: Improving mildly Vital Signs Temp 99.1 F 03/29/21 10:58 Pulse 99 03/29/21 11:17 Resp 18 03/29/21 10:58 BP 142/82 03/29/21 10:58 Pulse Ox 96 03/29/21 10:58 Intake & Output 03/28/21 03/29/21 03/29/21 18:59 06:59 18:59 Weight 68.5 kg Other: Voiding Method Diaper Diaper Diaper External Catheter External Catheter # Voids 2 5 # Bowel Movements 2 Laboratory Results - Last 24 Hours 03/28/21 03/29/21 03/29/21 16:47 00:40 06:25 WBC RBC Hgb Hct MCV MCH MCHC RDW Plt Count MPV Absolute Nucleated RBC NRBC/100 WBC Diff ESR PT INR APTT Sodium Potassium Chloride Carbon Dioxide Anion Gap BUN Creatinine Est GFR (CKD-EPI)AfAm Est GFR (CKD-EPI)NonAf Glucose POC Glucose (mg/dL) 118 H 98 99 POC Glu Administrator Pesticide ID Dalia Duran, Shana Arroyo, Shana Calcium Magnesium 03/29/21 03/29/21 03/29/21 06:43 06:43 09:16 WBC 12.36 H RBC 3.11 L Hgb 10.0 L Hct 31.4 L MCV 101.0 H MCH 32.2 H MCHC 31.8 L RDW 15.9 H Plt Count 391 MPV 10.9 Absolute Nucleated RBC 0.02 H NRBC/100 WBC Diff 0.2 H ESR 104 H PT INR APTT Sodium 141 Potassium 3.4 L Chloride 109 H Carbon Dioxide 23 Anion Gap 9 BUN 5 L Creatinine 0.31 L Est GFR (CKD-EPI)AfAm >90 Est GFR (CKD-EPI)NonAf >90 Glucose 97 POC Glucose (mg/dL) POC Glu Administrator Pesticide ID Calcium 8.5 Magnesium 2.0 03/29/21 03/29/21 10:18 11:35 WBC RBC Hgb Hct MCV MCH MCHC RDW Plt Count MPV Absolute Nucleated RBC NRBC/100 WBC Diff ESR PT 11.3 INR 1.1 APTT 26.4 Sodium Potassium Chloride Carbon Dioxide Anion Gap BUN Creatinine Est GFR (CKD-EPI)AfAm Est GFR (CKD-EPI)NonAf Glucose POC Glucose (mg/dL) 103 H POC Glu Administrator Pesticide ID Piedad Pennington Calcium Magnesium Assessment Acute metabolic encephalopathy - resolving Sepsis without septic shock Alcohol use disorder Anxiety disorder, unspecified 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 The patient is currently not endorsing any significant symptoms of psychosis at this time. It is likely that his psychotic symptoms were the results of alcohol hallucinosis versus delirium tremens. The patient is also not presenting with any imminent risk of harm to self or others and is not endorsing any suicidal or homicidal ideation, intention, and/or plan. -Delirium precautions recommended with patient including - avoiding use of narcotics and [facility] sedatives, limit anticholinergic medications when possible, frequent re-orientation, minimize use of restraints, open window shades during the day and close them at night -Would recommend the following medication changes/additions: We will restart the patient's trazodone 50 mg at bedtime as needed for insomnia We will restart the patient's naltrexone 50 mg daily for alcohol use disorder We will hold the patient's Vilazodone as it is not on formulary. May restart once patient is discharged. Patient is not presenting with imminent risk of harm to self or others or endorsing any significant symptoms of depression therefore to restart this antidepressant or a new antidepressant is not a priority at this time. We will hold gabapentin at this time. At the prescribed dose which he was taking at home, the patient is likely to see little to no benefit from this medication. -Recommend referral for outpatient psychiatric and substance abuse treatment. -Psychiatry will sign off at this time. Please contact us with any questions or reconsult us if necessary.
--- NOTE | 2021-03-29 14:45 | P.PCN ---
Date of Procedure: 03/29/21 Operative Findings: Procedure: Lumbar puncture PREOPERATIVE DIAGNOSIS: Altered mental status POSTOPERATIVE DIAGNOSIS: Altered mental status SURGEON: Renita Sheehan ANESTHESIA: Local with 1% lidocaine, and IV sedation : None EBL: None. Specimen removed: 12 mL of CSF PROCEDURE INDICATION: The patient had recent history of altered mental status, primary team requested lumbar puncture for CSF analysis. PROCEDURE DESCRIPTION: The patient was seen and identified in the room. Risks, benefits, complications, and alternatives were discussed with the patient family. Signed the consent. Patient kept in sitting position with help of RN. The lumbosacral area was prepped with ChloraPrep 2, and draped in the usual sterile fashion. Critical pause was taken. Vital signs were closely monitored during the procedure. Using palpation technique L4-L5 interspinous space identified. Skin and deeper tissues were localized with 5 mL of 1% lidocaine. , a 22 gauge 3.5 Carter spinal needle entered the subarachnoid space with one attempt., No trauma noticed, no blood in the CSF. Approximately 3 mL of CSF collected in 4 sample tubes. Needle was withdrawn intact, skin was cleansed, and bandages were applied. COMPLICATIONS: None, and patient tolerated procedure well. DISPOSITION / PLANS: The patient was placed in a supine position, recommended RN to monitor patient..
[2021-03-29 15:35] LABS: Glucose,CSF 61 mg/dL (40-70); Total Protein,CSF 44 mg/dL (12-60)
[2021-03-29 16:09] LABS: Appearance,CSF Clear; CSF Tube Number 3; Nucleated Cells, CSF 0 u/L (0-5); Red Blood Cell,CSF 0 u/L (0-10)
[2021-03-29 16:53] LABS: Glucose,Whole Blood 90 mg/dL (75-99)
--- NOTE | 2021-03-29 19:29 | P.PN ---
Subjective Progress Note Date: 03/29/21 03/29/2021: Patient appears much better as compared to yesterday. Patient states that "you are the third doctor of the day". He is concerned that he is not getting exercises, not getting out of bed. 03/28/2021: Patient was seen for a follow-up. Patient complains of extreme muscle pain and fatigue. He tells me that he was attacked by a dog and he fell down on the ground. He got up and was again attacked by the dog and fell again. This happened a total of 3 times until he got in someone's garage. He states that this happened when there was a big snowstorm in August 2020. 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 He still could not tell me the exact reason that he came to the hospital. He continues to have pain in the legs, right much worse than left. Please refer to examination below. Right ankle appears swollen. He has peripheral edema. WORK-UP: * CPK is 999 on 03/14 but 217 on 03/16--improved. * B12 582 normal, however at MMA is elevated 0.46 (normal <0.40). This may indicate intracellular deficiency of B12. Patient's folate 5.7, TSH 1.77, RPR nonreactive. * Low Vitamin B6 3 (normal is 5-50). * Ammonia level 12 (normal) * ESR 64 on 03/19 and the repeated ESR 77 on 03/21/2021. * MRI of the brain on 03/18/21 revealed mild atrophy. Mild subependymal white matter increased signal around the lateral ventricles measuring up to 5 mm in thickness. No evidence of cortical infarct. * REPEAT MRI brain w/o (03/23/21): I ordered MRI the brain with and without but because the patient was in so much pain that was the study was limited and it was done only without. The MR the brain is reported as limited examination due to patient's pain. No obvious significant intracranial abnormality. * MRI of the lumbar spine with and without contrast 03/19/2021 revealed no evidence of discitis. No significant disc space narrowing. No fracture. Multilevel mild facet arthropathy and mild lateral recess stenosis. Multilevel mild posterior disc bulging without spinal stenosis. * CerebroSpinal fluid examination revealed glucose 64 (40-70), proteins 226 (12- 60), total WBC count in CSF 18, out of its 15% monocytes and 85% polynuclear's. CSF RBC 5175, due to traumatic tap. * Patient's spinal fluid was traumatic because patient was not cooperating. CSF showsCSF shows very mild leukocytosis ( about 2-3 cells above normal after correction for traumatic tap), and very elevated proteins. Cultures negative. HSV-1 and 2 PCR in the CSF are negative. Viral test are negative. Infectious disease following. * Patient had undergone aspiration of right knee and left ankle, both of which have been negative for any growth. No crystals seen in the sinonasal fluid. * Routine EEG on 03/17/21 was reported as abnormal due to background slowing of moderate to severe degree. This is suggestive of generalized cerebral dysfunction, as can be seen with toxic metabolic encephalopathy or due to dif fuse structural brain abnormality. No epileptiform activity was seen. * Carotid Doppler was technically difficult due to patient's inability to hold still. No hemodynamically significant ICA stenosis identified on either side. Antegrade flow in both vertebral arteries. * CT of facial bone on 03/14/2021 is reported as there is evidence of old blow out fracture of the floor of the left bony orbits. No acute fracture seen. * Left Lower extremity CT 03/22/2021: is reported as chronic changes as noted. Soft tissue swelling. Calcaneal is spurring. * CT of the abdomen/pelvis: Was reported as fatty infiltration of the liver. Pleural effusion and basilar atelectasis. Elevated right diaphragm could relate to diaphragm paralysis. Subcutaneous edema around the abdomen. Congestive heart failure as possible. These abnormality. New compared to old exam. 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 No acute abnormality within the abdomen pelvis * CT of the chest is reported as small left apical density. Additional left lateral long-based thickening may be present. At the clinic today says an underlying mass should be considered. No evidence of pneumonia or aspiration pneumonia. Moderate fatty infiltration to the liver. * CT of the chest is reported as suboptimal study without CT chest of for acute pulmonary embolism. Lateral left upper lung groundglass opacity could reflect acute infection process. No significant change from one day earlier. Stable small bilateral pleural effusion noted. Objective - Vital Signs Vital signs: Vital Signs Temp 98.5 F 03/29/21 14:00 Pulse 112 H 03/29/21 14:00 Resp 16 03/29/21 14:00 BP 132/77 03/29/21 14:00 Pulse Ox 96 03/29/21 14:00 Intake & Output 03/29/21 03/29/21 03/30/21 06:59 18:59 06:59 Other: Voiding Method Diaper Diaper External Catheter # Voids 5 2 # Bowel Movements 2 - Exam Patient is a middle aged male, appears older than his stated age. Patient states it is March and the year is 2050. He knows that he is in [facility] in [place]. Patient's speech and language functions have much improved. On cranial examination pupils are round and reacting to light, visual licea are full on confrontation, extraocular muscles are intact. Face is symmetric and tongue protrudes to the midline. Palatal elevation is normal, hearing and shoulder shrug normal. On muscle strength testing, the strength is normal in upper extremities. In the lower extremities, his hip flexion is (right/left) 2/4, ankle dorsiflexion 5/4. Patient is less tender and less pain in the legs. Right knee appears swollen. He has peripheral edema. Sensations are equal. No ataxia for [id number] testing. Reflexes are 3 to 3+ in the arms and legs bilaterally. Plantars are downgoing. Patient has multiple scratches, old healed scabs. Chest is clear, abdomen is soft. - Labs CBC & Chem 7: 03/29/21 06:43 03/29/21 06:43 Labs: Abnormal Lab Results - Last 24 Hours (Table) 03/29/21 03/29/21 03/29/21 Range/Units 06:43 06:43 09:16 WBC 12.36 H (4.50-10.00) X 10*3/uL RBC 3.11 L (4.40-5.60) X 10*6/uL Hgb 10.0 L (13.0-17.0) g/dL Hct 31.4 L (39.6-50.0) % MCV 101.0 H (80.0-97.0) fL MCH 32.2 H (27.0-32.0) pg MCHC 31.8 L (32.0-37.0) g/dL RDW 15.9 H (11.5-14.5) % Absolute Nucleated RBC 0.02 H (0.00-0.00) X 10*3/uL NRBC/100 WBC Diff 0.2 H (0.0-0.0) /100 WBCS ESR 104 H (0-15) mm/hr Potassium 3.4 L (3.5-5.1) mmol/L Chloride 109 H (98-107) mmol/L BUN 5 L (9-20) mg/dL Creatinine 0.31 L (0.66-1.25) mg/dL POC Glucose (mg/dL) (75-99) mg/dL 03/29/21 Range/Units 11:35 WBC (4.50-10.00) X 10*3/uL RBC (4.40-5.60) X 10*6/uL Hgb (13.0-17.0) g/dL Hct (39.6-50.0) % MCV (80.0-97.0) fL MCH (27.0-32.0) pg MCHC (32.0-37.0) g/dL RDW (11.5-14.5) % Absolute Nucleated RBC (0.00-0.00) X 10*3/uL NRBC/100 WBC Diff (0.0-0.0) /100 WBCS ESR (0-15) mm/hr Potassium (3.5-5.1) mmol/L Chloride (98-107) mmol/L BUN (9-20) mg/dL Creatinine (0.66-1.25) mg/dL POC Glucose (mg/dL) 103 H (75-99) mg/dL Assessment and Plan Assessment: * 55-year-old male with history of alcoholism, was found at laying with fecal matter with multiple bruises, scratches and pressure sores over dependent areas, indicating patient has been on the floor for fairly long period of time. Last period of contact with his friends was on Sunday, 3 days prior to arrival. Patient has improved slightly as compared to yesterday. Still continues to be significantly delirious/encephalopathic. 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 Patient now has developed temperature 101.4. No definitive evidence of meningitis/encephalitis based upon CSF results. * Fever of unknown etiology. * Vitamin B6 deficiency * Hypertension * Right leg pain, unclear etiology. Rule out radiculopathy. * History of alcoholism * History of multiple falls. * History of marijuana use. Plan: * Patient's mentation has improved. He is complaining less of muscle pain and fatigue. Patient's T-max is 99.1 in the last 24 hours. * Patient underwent a repeat lumbar puncture, which is completely normal. WBC 0, RBC 0, glucose 61 and total proteins 44. * ESR is very high 103, Lyme titer, repeat CK. We will also check West Nile virus IgG and IgM in the serum. * Infectious disease following. No source identified yet. Patient scheduled for whole body WBC scan. * Patient's previous CSF shows very mild leukocytosis (after correction for traumatic tap), however very highly elevated proteins. Cultures were negative. HSV-1 and 2 PCR in the CSF are negative. Infectious disease following. Acyclovir has been discontinued. Antibiotics have been tapered to control cryptogenic infection. Currently on cefepime and vancomycin. Patient had undergone aspiration of right knee and left ankle, both of which have been negative for any growth. No crystals seen in the sinonasal fluid. * EEG was abnormal due to background slowing of moderate to severe degree. This is suggestive of generalized cerebral dysfunction, as can be seen with toxic metabolic encephalopathy or due to diffuse structural brain abnormality. No epileptiform activity was seen. * Carotid Doppler was technically difficult due to patient's inability to hold still. No hemodynamically significant ICA stenosis identified on either side. Antegrade flow in both vertebral arteries. * B12 582 normal, however at MMA is elevated 0.46 (normal <0.40). This may indicate intracellular deficiency of B12. Patient's folate 5.7, TSH 1.77, RPR nonreactive. We will start folate and B12 replacement. B6 was low 3, currently on replacement. * Thiamine, folate. [facility] protocol. * Orthopedic consultation input appreciated. Patient had undergone left ankle and right knee joint aspiration. 40 as he is 10. His * MRI of the lumbar spine with and without contrast revealed no evidence of discitis. No significant disc space narrowing. No fracture. Multilevel mild facet arthropathy and mild lateral recess stenosis. Multilevel mild posterior disc bulging without spinal stenosis. * Spinal fluid examination revealed glucose 64 (40-70), proteins 226 (12-60), total WBC count in CSF 18, out of its 15% monocytes and 85% polynuclear's. CSF RBC 5175, due to traumatic tap. * MRI of the brain with and without contrast revealed mild atrophy. Mild subependymal white matter increased signal around the lateral ventricles measuring up to 5 mm in thickness. No evidence of cortical infarct. Repeat MRI of the brain without contrast showed no acute process. * PT OT, possible rehab.
--- NOTE | 2021-03-29 19:52 | PN ---
PROGRESS NOTE DATE OF SERVICE: 03/29/2021 REASON FOR FOLLOWUP: Fever. INTERVAL HISTORY: The patient is afebrile today. The patient remains pleasantly confused. He is breathing comfortably on room air. No vomiting or diarrhea has been reported by the nursing staff. PHYSICAL EXAMINATION: Blood pressure 132/77 with pulse of 99, temperature 98.5. He is 96% on room air. GENERAL DESCRIPTION: General description is a middle-aged male lying in bed in no distress. RESPIRATORY SYSTEM: Unlabored breathing. Decreased breath sounds at the bases. No wheeze. HEART: S1, S2. Regular rate and rhythm. ABDOMEN: Soft. No tenderness. LABS: LP was completed today, which is normal. WBC scan is pending. DIAGNOSTIC IMPRESSION AND PLAN: Patient with a fever and elevated white count in this patient who did have extensive workup without identification of his focus. He even had the LP which is negative. We are waiting for the WBC scan. Continue with cefepime and vancomycin and monitor his clinical course closely. MMODL / IJN: [id number] /
[2021-03-29 20:46] LABS: Glucose,Whole Blood 121 mg/dL (75-99)
[2021-03-29] MEDS: ACETAMINOPHEN TAB 325 MG TAB PO PRN (22:31)
[2021-03-30 00:07] LABS: Glucose,Whole Blood 109 mg/dL (75-99)
[2021-03-30] MEDS: HEPARIN SODIUM,PORCINE/PF 5,000 UNIT/0.5 ML SYRINGE SQ SCH ×3 (01:37→17:26)
[2021-03-30] MEDS: CEFEPIME 2 GM in SODIUM CHLORIDE 0.9% 100 ML IVPB SCH ×3 (01:37→17:26)
[2021-03-30] MEDS: VANCOMYCIN 1,500 MG in SODIUM CHLORIDE 0.9% 250 ML IVPB SCH ×2 (02:32→13:08)
[2021-03-30 06:19] LABS: Glucose,Whole Blood 99 mg/dL (75-99)
[2021-03-30] MEDS: PANTOPRAZOLE 40 MG TABLET PO SCH (08:28)
[2021-03-30] MEDS ORDERED: VANCOMYCIN TROUGH DUE 1 EACH MISC MISCELLANE ONE (09:00)
[2021-03-30] MEDS: amLODIPine 5 MG TAB PO SCH ×2 (10:09→22:11)
[2021-03-30] MEDS: lisinopriL 10 MG TAB PO SCH (10:10)
[2021-03-30] MEDS: FOLIC ACID 1 MG TAB PO SCH (10:10)
[2021-03-30] MEDS: MEGESTROL 400 MG/10 ML CUP PO SCH (10:11)
[2021-03-30] MEDS: NALTREXONE HCL 50 MG TAB PO SCH (10:11)
[2021-03-30] MEDS: PYRIDOXINE 50 MG TAB PO SCH ×2 (10:12→22:11)
[2021-03-30 10:59] LABS: African American GFR (CKD) >90 (>60 ml/min/1.73 sqM); Non-African American GFR(CKD) >90 (>60 ml/min/1.73 sqM)
[2021-03-30] MEDS: NYSTATIN 100,000 UNIT/GM OINT 30 GM TUBE TOPICAL SCH ×2 (11:11→17:27)
[2021-03-30 11:27] LABS: Glucose,Whole Blood 142 mg/dL (75-99)
--- NOTE | 2021-03-30 12:57 | P.PN ---
Subjective Progress Note Date: 03/30/21 Hospital course: Patient is a 55-year-old male with a past medical history of EtOH abuse. He presented to the hospital on 03/14/21 after being found delirious and confused by his neighbor at home. Patient was reportedly found laying on the floor covered in his own feces with empty alcohol bottles surrounding him. Patient presented to the hospital with multiple bruises and abrasions in different stages of healing. UDS positive for marijuana and benzodiazepines. EtOH level was less than 10. Patient was initially found to have hypernatremia with sodium of 152, hyponatremia with potassium of 3.2, hyperchloremia with chloride of 114 and elevated creatinine kinase of 999. He was admitted for acute metabolic encephalopathy with hallucinations and EtOH withdrawal, rhabdomyolysis, and sepsis without sepsis shock. Patient has underwent multiple labs and imaging see below. Currently admitted under our services with consultation to pulmonology, infectious disease, neurology, and orthopedic surgery. Remains partially oriented. No chest pain no abdominal pain. Historian. Objective - Vital Signs Vital signs: Vital Signs Temp 98.1 F 03/30/21 06:39 Pulse 105 H 03/30/21 11:44 Resp 20 03/30/21 08:30 BP 136/82 03/30/21 06:39 Pulse Ox 97 03/30/21 02:13 Intake & Output 03/29/21 03/30/21 03/30/21 18:59 06:59 18:59 Weight 68.5 kg Other: Voiding Method Diaper Diaper Diaper # Voids 2 4 # Bowel Movements 2 - Exam General: Nontoxic, no distress and appears stated age. Derm: Skin warm and dry, normal coloration for ethnicity. Multiple bruises and abrasions covering upper and lower extremities in different stages of healing. red rash to buttocks Head: Atraumatic, normocephalic Eyes: No lid lag, and anicteric sclera. Mouth: No lip lesions, mucus membranes moist Cardiovascular: Regular rhythm and rate, no murmur, Lungs: Respirations even, regular, and unlabored on room air. Lungs CTA bilaterally, no rhonchi, no rales, no wheezing, and no accessory muscle usage. GI/: soft, nontender to palpation, no guarding, no appreciable organomegaly. Rendon catheter in place. Ext: ROM intact. No gross muscle atrophy, no edema, no contractures. erythema and swelling to BLE worse on left. Swelling right knee. Neuro/Psych: Speech clear. Patient able to follow limited commands, partially oriented - Labs CBC & Chem 7: 03/29/21 06:43 03/30/21 10:02 Labs: Abnormal Lab Results - Last 24 Hours (Table) 03/29/21 03/30/21 03/30/21 Range/Units 20:45 00:05 10:02 Creatinine 0.37 L (0.66-1.25) mg/dL POC Glucose (mg/dL) 121 H 109 H (75-99) mg/dL 03/30/21 Range/Units 11:26 Creatinine (0.66-1.25) mg/dL POC Glucose (mg/dL) 142 H (75-99) mg/dL Assessment and Plan Plan: Sepsis without septic shock Likely secondary to RLL Aspiration Pneumonia -Initial Pro-calcitonin 50.22 and CRP of 8.1, improving with repeat pro- calcitonin 10.40 and CRP 5.1. -Continue IV antibiotics: Vancomycin and cefepime -CSF fluid not consistent with bacterial meningitis. -HSV PCR negative -MRI of the lumbar spine with no evidence of discitis or prevertebral abscess -Thiamine 100 mg twice daily. Hypomagnesemia -Replace as indicated Hypokalemia -Replace as indicated Alcohol abuse with alcohol withdrawal syndrome Delirium tremens Rhabdomyolysis Acute Metabolic Encephalopathy with hallucinations -Thiamine 100 mg twice daily -Seizure precautions, Fall precautions -Computed tomography scan of the head showed no acute findings. -MRI of the brain was no acute finding -Consulted neurology and psychiatry for further evaluation, input appreciated. -EEG was abnormal with generalized cerebral dysfunction and evidence of toxic metabolic encephalopathy -Treatment of underlying infectious process, continue IV antibiotics cefepime and vancomycin , ID input appreciated. Vitamin B6 Deficiency -Daily vitamin replacment. Poor living condition Recurrent episodes of hospital admission for alcohol abuse Major life stressors with possible major depression -Consult placed to psychiatry -rock room worker consultation Hypernatremia, resolved CODE STATUS: Full code DVT prophylaxis: SCDs Discussed with the nurse and case management Disposition: Pending clinical progression, to rehab once better.
[2021-03-30] MEDS: THIAMINE 100 MG in SODIUM CHLORIDE 0.9% 50 ML IVPB SCH ×2 (13:09→22:11)
[2021-03-30] MEDS: VANCOMYCIN 1,250 MG in SODIUM CHLORIDE 0.9% 250 ML IVPB SCH ×2 (13:26→22:11)
--- NOTE | 2021-03-30 18:31 | PN ---
PROGRESS NOTE DATE OF SERVICE: 03/30/2021. REASON FOR FOLLOW: Fever. INTERVAL HISTORY: Patient did have low grade fever of 100.3 this afternoon. The patient remains to be pleasantly confused. No agitation has been noticed. Denies any chest pain or cough. No abdominal pain or diarrhea. PHYSICAL EXAMINATION: Blood pressure 116/75 with a pulse of 108, temperature 100.3. He is 100% on room air. General description is a middle-aged male lying in bed in no distress. Respiratory system: Unlabored breathing, decreased breath sounds in the bases. No wheeze. Heart S1, S2. Regular rate and rhythm. Abdomen soft. No tenderness. LABS: Creatinine 0.30. Vancomycin trough is 21.6. DIAGNOSTIC IMPRESSION AND PLAN: Patient with a fever in this patient who did have extensive workup without any clear focus. We are waiting for the WBC scan to be completed. Patient is covered with empiric Vanco, Rocephin to continue and monitor clinical course closely. MMODL / IJN: [id number] /
[2021-03-30 18:32] LABS: Glucose,Whole Blood 156 mg/dL (75-99)
--- NOTE | 2021-03-30 22:24 | NM ---
EXAMINATION TYPE: NM WBC whole body DATE OF EXAM: 03/30/2021 COMPARISON: NONE HISTORY: Fever TECHNIQUE: Following administration of 15.6 mCi Tc99m Ceretec. Images obtained 4 hours post injecti on. FINDINGS: There is some tracer accumulation over the right proximal femur that is probably contamination of uri ne. There is a thoracolumbar levoscoliosis. Uptake in the liver and spleen is fairly normal. I see no abdominal uptake to suggest a pyogenic infection. No significant abnormal uptake in the lungs. IMPRESSION: Exam fails to demonstrate a site of pyogenic infection.
[2021-03-31] MEDS: NYSTATIN 100,000 UNIT/GM OINT 30 GM TUBE TOPICAL SCH ×4 (00:21→22:32)
[2021-03-31] MEDS: CEFEPIME 2 GM in SODIUM CHLORIDE 0.9% 100 ML IVPB SCH ×3 (00:51→17:17)
[2021-03-31] MEDS: HEPARIN SODIUM,PORCINE/PF 5,000 UNIT/0.5 ML SYRINGE SQ SCH ×3 (00:51→17:17)
[2021-03-31 01:02] LABS: Glucose,Whole Blood 96 mg/dL (75-99)
[2021-03-31] MEDS: VANCOMYCIN 1,250 MG in SODIUM CHLORIDE 0.9% 250 ML IVPB SCH ×3 (05:40→22:31)
[2021-03-31 06:22] LABS: Glucose,Whole Blood 103 mg/dL (75-99)
[2021-03-31] MEDS: THIAMINE 100 MG in SODIUM CHLORIDE 0.9% 50 ML IVPB SCH ×2 (07:34→22:31)
[2021-03-31] MEDS: amLODIPine 5 MG TAB PO SCH ×2 (07:35→22:31)
[2021-03-31] MEDS: NALTREXONE HCL 50 MG TAB PO SCH (07:35)
[2021-03-31] MEDS: PANTOPRAZOLE 40 MG TABLET PO SCH (07:35)
[2021-03-31] MEDS: FOLIC ACID 1 MG TAB PO SCH (07:36)
[2021-03-31] MEDS: lisinopriL 10 MG TAB PO SCH (07:36)
[2021-03-31] MEDS: PYRIDOXINE 50 MG TAB PO SCH (07:37)
[2021-03-31] MEDS: MEGESTROL 400 MG/10 ML CUP PO SCH (07:37)
[2021-03-31 09:18] LABS: Basophils # (A) 0.06 X 10*3/uL (0.00-0.10); Basophils % (A) 0.5 %; Eosinophils # (A) 0.28 X 10*3/uL (0.04-0.35); Eosinophils % (A) 2.4 %; HCT 28.5 % (39.6-50.0); HGB 8.8 g/dL (13.0-17.0); Lymphocytes # (A) 1.57 X 10*3/uL (0.90-5.00); Lymphocytes % (A) 13.4 %; MCHC 30.9 g/dL (32.0-37.0); MCV 100.4 fL (80.0-97.0); Mean Platelet Volume 9.6 fL (9.5-12.2); Monocytes # (A) 0.98 X 10*3/uL (0.20-1.00); Monocytes % (A) 8.3 %; Neutrophils # (A) 8.59 X 10*3/uL (1.80-7.70); Neutrophils % (A) 73.1 %; Platelet Count 505 X 10*3/uL (140-440); RBC 2.84 X 10*6/uL (4.40-5.60); RDW 15.6 % (11.5-14.5); WBC 11.75 X 10*3/uL (4.50-10.00)
[2021-03-31 11:33] LABS: Glucose,Whole Blood 137 mg/dL (75-99)
[2021-03-31 13:25] LABS: West Nile Virus IgM Antibody 0.22 INDEX (<0.90)
--- NOTE | 2021-03-31 13:31 | P.PN ---
Subjective Progress Note Date: 03/31/21 Hospital course: Patient is a 55-year-old male with a past medical history of EtOH abuse. He presented to the hospital on 03/14/21 after being found delirious and confused by his neighbor at home. Patient was reportedly found laying on the floor covered in his own feces with empty alcohol bottles surrounding him. Patient presented to the hospital with multiple bruises and abrasions in different stages of healing. UDS positive for marijuana and benzodiazepines. EtOH level was less than 10. Patient was initially found to have hypernatremia with sodium of 152, hyponatremia with potassium of 3.2, hyperchloremia with chloride of 114 and elevated creatinine kinase of 999. He was admitted for acute metabolic encephalopathy with hallucinations and EtOH withdrawal, rhabdomyolysis, and sepsis without sepsis shock. Patient has underwent multiple labs and imaging see below. Currently admitted under our services with consultation to pulmonology, infectious disease, neurology, and orthopedic surgery. Remains partially oriented. No chest pain no abdominal pain. poor Historian. Remains afebrile. Objective - Vital Signs Vital signs: Vital Signs Temp 99.5 F 03/31/21 08:00 Pulse 111 H 03/31/21 08:00 Resp 16 03/31/21 08:30 BP 131/81 03/31/21 08:00 Pulse Ox 95 03/31/21 08:00 Intake & Output 03/30/21 03/31/21 03/31/21 18:59 06:59 18:59 Intake Total 200 920 Balance 200 920 Weight 68.5 kg Intake: Intake, IV Titration 350 Amount Cefepime 2 gm In Sodium 100 Chloride 0.9% 100 ml @ 25 mls/hr IVPB Q8HR [facility] Rx# :[id number] Vancomycin 1,250 mg In 250 Sodium Chloride 0.9% 250 ml @ 125 mls/hr IVPB Q8H [facility] Rx#:[id number] Oral 200 570 Other: Voiding Method Diaper Diaper Diaper # Voids 2 2 # Bowel Movements 2 1 2 - Exam General: Nontoxic, no distress and appears stated age. Derm: Skin warm and dry, normal coloration for ethnicity. Head: Atraumatic, normocephalic Eyes: No lid lag, and anicteric sclera. Mouth: No lip lesions, mucus membranes moist Cardiovascular: Regular rhythm and rate, no murmur, Lungs: Respirations even, regular, and unlabored on room air. Lungs CTA bilaterally, no rhonchi, no rales, no wheezing, and no accessory muscle usage. GI/: soft, nontender to palpation, no guarding, no appreciable organomegaly. Rendon catheter in place. Ext: ROM intact. No gross muscle atrophy, no edema, no contractures. erythema and swelling to BLE worse on left. Swelling right knee. Neuro/Psych: Speech clear. Patient able to follow limited commands, partially oriented - Labs CBC & Chem 7: 03/31/21 05:35 03/30/21 10:02 Labs: Abnormal Lab Results - Last 24 Hours (Table) 03/30/21 03/31/21 03/31/21 Range/Units 18:30 05:35 06:19 WBC 11.75 H (4.50-10.00) X 10*3/uL RBC 2.84 L (4.40-5.60) X 10*6/uL Hgb 8.8 L (13.0-17.0) g/dL Hct 28.5 L (39.6-50.0) % MCV 100.4 H (80.0-97.0) fL MCHC 30.9 L (32.0-37.0) g/dL RDW 15.6 H (11.5-14.5) % Plt Count 505 H (140-440) X 10*3/uL Absolute Nucleated RBC 0.02 H (0.00-0.00) X 10*3/uL Immature Gran # 0.27 H (0.00-0.04) X 10*3/uL Neutrophils # 8.59 H (1.80-7.70) X 10*3/uL NRBC/100 WBC Diff 0.2 H (0.0-0.0) /100 WBCS POC Glucose (mg/dL) 156 H 103 H (75-99) mg/dL 03/31/21 Range/Units 11:30 WBC (4.50-10.00) X 10*3/uL RBC (4.40-5.60) X 10*6/uL Hgb (13.0-17.0) g/dL Hct (39.6-50.0) % MCV (80.0-97.0) fL MCHC (32.0-37.0) g/dL RDW (11.5-14.5) % Plt Count (140-440) X 10*3/uL Absolute Nucleated RBC (0.00-0.00) X 10*3/uL Immature Gran # (0.00-0.04) X 10*3/uL Neutrophils # (1.80-7.70) X 10*3/uL NRBC/100 WBC Diff (0.0-0.0) /100 WBCS POC Glucose (mg/dL) 137 H (75-99) mg/dL Assessment and Plan Plan: Sepsis without septic shock Likely secondary to RLL Aspiration Pneumonia -Initial Pro-calcitonin 50.22 and CRP of 8.1, improving with repeat pro- calcitonin 10.40 and CRP 5.1. -Continue IV antibiotics: Vancomycin and cefepime -CSF fluid not consistent with bacterial meningitis. -HSV PCR negative -MRI of the lumbar spine with no evidence of discitis or prevertebral abscess -Thiamine 100 mg twice daily. WBC improved down to 11,000 and patient remains afebrile. Hypomagnesemia -Replace as indicated Hypokalemia -Replace as indicated Alcohol abuse with alcohol withdrawal syndrome Delirium tremens Rhabdomyolysis Acute Metabolic Encephalopathy with hallucinations -Thiamine 100 mg twice daily -Seizure precautions, Fall precautions -Computed tomography scan of the head showed no acute findings. -MRI of the brain was no acute finding -Consulted neurology and psychiatry for further evaluation, input appreciated. -EEG was abnormal with generalized cerebral dysfunction and evidence of toxic metabolic encephalopathy -Treatment of underlying infectious process, continue IV antibiotics cefepime and vancomycin , ID input appreciated. Vitamin B6 Deficiency -Daily vitamin replacment. Poor living condition Recurrent episodes of hospital admission for alcohol abuse Major life stressors with possible major depression -Consult placed to psychiatry, input appreciated. -cathead worker consultation Hypernatremia, resolved CODE STATUS: Full code DVT prophylaxis: SCDs Discussed with the nurse and case management Disposition: Pending rehab placement
[2021-03-31 16:41] LABS: Glucose,Whole Blood 133 mg/dL (75-99)
--- NOTE | 2021-03-31 17:10 | PN ---
PROGRESS NOTE DATE OF SERVICE: 03/31/2021 REASON FOR FOLLOWUP: Fever, leukocytosis. INTERVAL HISTORY: The patient is afebrile today. The patient did have a low-grade fever of 100.3 yesterday. The patient is hemodynamically stable. Mentation remains . No agitation has been reported. He is breathing comfortably on room air. Denies any chest pain or cough. No abdominal pain. No diarrhea has been reported. PHYSICAL EXAMINATION: Blood pressure 129/83 with pulse of 140, temperature 99.8. He is 96% on room air. GENERAL DESCRIPTION: General description is a middle-aged male lying in bed in no distress. RESPIRATORY SYSTEM: Unlabored breathing. Clear to auscultation anteriorly. HEART: S1, S2. Regular rate and rhythm. ABDOMEN: Soft. No tenderness. LABS: Hemoglobin is 8.9, white count 11.75. WBC scan has been negative. DIAGNOSTIC IMPRESSION AND PLAN: Patient with a fever and elevated white count in this patient who did have extensive workup without any obvious focus of infection. Culture has been negative. Scan has been negative. Recommend discontinuing antibiotic and monitor the patient closely off antibiotic therapy. Continue supportive care. MMODL / IJN: [id number] /
--- NOTE | 2021-03-31 21:59 | P.PN ---
Subjective Progress Note Date: 03/30/21 03/30/2021: Patient's coworkers were present. They mentioned that patient is still confused. Patient is talking something about "sprains and drains". He does speak tangential. States it is June 1951 03/29/2021: Patient appears much better as compared to yesterday. Patient states that "you are the third doctor of the day". He is concerned that he is not getting exercises, not getting out of bed. 03/28/2021: Patient was seen for a follow-up. Patient complains of extreme muscle pain and fatigue. He tells me that he was attacked by a dog and he fell down on the wil und. He got up and was again attacked by the dog and fell again. This happened a total of 3 times until he got in someone's garage. He states that this happened when there was a big snowstorm in August 2020. He also suffered from a torn meniscus between summer and fall of 2019 when he was using a snowblower and the handle snapped. He still could not tell me the exact reason that he came to the hospital. He continues to have pain in the legs, right much worse than left. Please refer to examination below. Right ankle appears swollen. He has peripheral edema. WORK-UP: * CPK is 999 on 03/14 but 217 on 03/16--improved. * B12 582 normal, however at MMA is elevated 0.46 (normal <0.40). This may indicate intracellular deficiency of B12. Patient's folate 5.7, TSH 1.77, RPR nonreactive. * Low Vitamin B6 3 (normal is 5-50). * Ammonia level 12 (normal) * ESR 64 on 03/19 and the repeated ESR 77 on 03/21/2021. * MRI of the brain on 03/18/21 revealed mild atrophy. Mild subependymal white matter increased signal around the lateral ventricles measuring up to 5 mm in thickness. No evidence of cortical infarct. * REPEAT MRI brain w/o (03/23/21): I ordered MRI the brain with and without but because the patient was in so much pain that was the study was limited and it was done only without. The MR the brain is reported as limited examination due to patient's pain. No obvious significant intracranial abnormality. * MRI of the lumbar spine with and without contrast 03/19/2021 revealed no evidence of discitis. No significant disc space narrowing. No fracture. Multilevel mild facet arthropathy and mild lateral recess stenosis. Multilevel mild posterior disc bulging without spinal stenosis. * CerebroSpinal fluid examination revealed glucose 64 (40-70), proteins 226 (12- 60), total WBC count in CSF 18, out of its 15% monocytes and 85% polynuclear's. CSF RBC 5175, due to traumatic tap. * Patient's spinal fluid was traumatic because patient was not cooperating. CSF showsCSF shows very mild leukocytosis ( about 2-3 cells above normal after correction for traumatic tap), and very elevated proteins. Cultures negative. HSV-1 and 2 PCR in the CSF are negative. Viral test are negative. Infectious disease following. * Patient had undergone aspiration of right knee and left ankle, both of which have been negative for any growth. No crystals seen in the sinonasal fluid. * Routine EEG on 03/17/21 was reported as abnormal due to background slowing of moderate to severe degree. This is suggestive of generalized cerebral dysfunction, as can be seen with toxic metabolic encephalopathy or due to diffuse structural brain abnormality. No epileptiform activity was seen. * Carotid Doppler was technically difficult due to patient's inability to hold still. No hemodynamically significant ICA stenosis identified on either side. Antegrade flow in both vertebral arteries. * CT of facial bone on 03/14/2021 is reported as there is evidence of old blow out fracture of the floor of the left bony orbits. No acute fracture seen. * Left Lower extremity CT 03/22/2021: is reported as chronic changes as noted. Soft tissue swelling. Calcaneal is spurring. * CT of the abdomen/pelvis: Was reported as fatty infiltration of the liver. Pleural effusion and basilar atelectasis. Elevated right diaphragm could relate to diaphragm paralysis. Subcutaneous edema around the abdomen. Congestive heart failure as possible. These abnormality. New compared to old exam. 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 No acute abnormality within the abdomen pelvis * CT of the chest is reported as small left apical density. Additional left lateral long-based thickening may be present. At the clinic today says an underlying mass should be considered. No evidence of pneumonia or aspiration pneumonia. Moderate fatty infiltration to the liver. * CT of the chest is reported as suboptimal study without CT chest of for acute pulmonary embolism. Lateral left upper lung groundglass opacity could reflect acute infection process. No significant change from one day earlier. Stable small bilateral pleural effusion noted. Objective - Vital Signs Vital signs: Vital Signs Temp 100.3 F H 03/30/21 14:00 Pulse 108 H 03/30/21 14:00 Resp 18 03/30/21 14:00 BP 116/75 03/30/21 14:00 Pulse Ox 100 03/30/21 14:00 Intake & Output 03/30/21 03/30/21 03/31/21 06:59 18:59 06:59 Intake Total 200 Balance 200 Weight 68.5 kg Intake: Oral 200 Other: Voiding Method Diaper Diaper # Voids 4 2 # Bowel Movements 2 2 - Exam Patient is a middle aged male, appears older than his stated age. Patient states it is June and the year is 1950. He states that he is in a public community facility in [facility]. He knows that he is in [place] in [place] and name of the current president Eyal Sargent. Patient's speech and language functions have much improved. On cranial examination pupils are round and reacting to light, visual licea are full on confrontation, extraocular muscles are intact. Face is symmetric and tongue protrudes to the midline. Palatal elevation is normal, hearing and shoulder shrug normal. On muscle strength testing, the strength is normal in upper extremities. In the lower extremities, his hip flexion is (right/left) 5-/5, ankle dorsiflexion 5/5- . Patient is less tender and less pain in the legs. Right knee appears swollen, however appears better. He has peripheral edema. Sensations are equal. No ataxia for [id number] testing. Reflexes are 3 to 3+ in the arms and legs bilaterally. Plantars are downgoing. Patient has multiple scratches, old healed scabs. Chest is clear, abdomen is soft. - Labs CBC & Chem 7: 03/31/21 05:35 03/30/21 10:02 Labs: Abnormal Lab Results - Last 24 Hours (Table) 03/29/21 03/30/21 03/30/21 Range/Units 20:45 00:05 10:02 Creatinine 0.37 L (0.66-1.25) mg/dL POC Glucose (mg/dL) 121 H 109 H (75-99) mg/dL 03/30/21 03/30/21 Range/Units 11:26 18:30 Creatinine (0.66-1.25) mg/dL POC Glucose (mg/dL) 142 H 156 H (75-99) mg/dL Assessment and Plan Assessment: * 55-year-old male with history of alcoholism, was found at home laying with fecal matter with multiple bruises, scratches and pressure sores over dependent areas, indicating patient has been on the floor for fairly long period of time. Last period of contact with his friends was on Sunday, 3 days prior to arrival. Patient has improved slightly as compared to yesterday. Still continues to be significantly delirious/encephalopathic. 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 * Fever of unknown etiology, still with low-grade fever of 100.3. * Vitamin B6 deficiency * Hypertension * Right leg pain, unclear etiology, possible radiculopathy, significantly improved. * History of alcoholism * History of multiple falls. * History of marijuana use. Plan: * Patient's mentation has improved. His muscle strength and endurance has also improved. He has significantly improved pain in the legs on active and passive movement. Patient is able to cooperate more with the examination. * Patient's T-max is 100.3 in the last 24 hours. * Patient underwent a repeat lumbar puncture, which is completely normal. WBC 0, RBC 0, glucose 61 and total proteins 44. * ESR is very high 103, Lyme titer, repeat CK. We will also check West Nile virus IgG and IgM in the serum. * Infectious disease following. No source identified yet. Patient scheduled for whole body WBC scan. * Patient's previous CSF shows very mild leukocytosis (after correction for traumatic tap), however very highly elevated proteins. Cultures were negative. HSV-1 and 2 PCR in the CSF are negative. Cryptococcal antigen negative. Infectious disease following. * West Nile virus serology negative. Patient to undergo WBC whole body scan today. * Antibiotics have been tapered to control cryptogenic infection. Currently on cefepime and vancomycin. Patient had undergone aspiration of right knee and left ankle, both of which have been negative for any growth. No crystals seen in the sinonasal fluid. * EEG was abnormal due to background slowing of moderate to severe degree. This is suggestive of generalized cerebral dysfunction, as can be seen with toxic metabolic encephalopathy or due to diffuse structural brain abnormality. No epileptiform activity was seen. * Carotid Doppler was technically difficult due to patient's inability to hold still. No hemodynamically significant ICA stenosis identified on either side. Antegrade flow in both vertebral arteries. * B12 582 normal, however at MMA is elevated 0.46 (normal <0.40). This may indicate intracellular deficiency of B12. Patient's folate 5.7, TSH 1.77, RPR nonreactive. We will start folate and B12 replacement. B6 was low 3, currently on replacement. We will change to vitamin B6 50 mg daily. * Thiamine, folate. [facility] protocol. * Orthopedic consultation input appreciated. Patient had undergone left ankle and right knee joint aspiration. * MRI of the lumbar spine with and without contrast revealed no evidence of d iscitis. No significant disc space narrowing. No fracture. Multilevel mild facet arthropathy and mild lateral recess stenosis. Multilevel mild posterior disc bulging without spinal stenosis. * MRI of the brain with and without contrast revealed mild atrophy. Mild subependymal white matter increased signal around the lateral ventricles measuring up to 5 mm in thickness. No evidence of cortical infarct. Repeat MRI of the brain without contrast showed no acute process. * PT OT, possible rehab. * Neurologically patient is stable, in fact significantly improving. Still slightly delirious, which could be from infection. ID following.
[2021-04-01 01:03] LABS: Glucose,Whole Blood 144 mg/dL (75-99)
[2021-04-01] MEDS: HEPARIN SODIUM,PORCINE/PF 5,000 UNIT/0.5 ML SYRINGE SQ SCH ×4 (01:42→22:19)
[2021-04-01] MEDS: CEFEPIME 2 GM in SODIUM CHLORIDE 0.9% 100 ML IVPB SCH ×2 (01:43→09:40)
[2021-04-01] MEDS ORDERED: VANCOMYCIN TROUGH DUE 1 EACH MISC MISCELLANE ONE (04:00)
[2021-04-01] MEDS: VANCOMYCIN 1,250 MG in SODIUM CHLORIDE 0.9% 250 ML IVPB SCH (05:23)
[2021-04-01 05:46] LABS: ALT 17 U/L (4-49); AST 49 U/L (17-59); African American GFR (CKD) >90 (>60 ml/min/1.73 sqM); Albumin 2.5 g/dL (3.5-5.0); Albumin/Globulin Ratio 0.8; Alkaline Phosphatase 74 U/L (38-126); Anion Gap 7 mmol/L; Blood Urea Nitrogen 5 mg/dL (9-20); Calcium 8.7 mg/dL (8.4-10.2); Carbon Dioxide 23 mmol/L (22-30); Chloride 111 mmol/L (98-107); Globulin 3.1 g/dL; Glucose 133 mg/dL (74-99); Non-African American GFR(CKD) >90 (>60 ml/min/1.73 sqM); Potassium 4.1 mmol/L (3.5-5.1); Sodium 141 mmol/L (137-145); Total Bilirubin 0.6 mg/dL (0.2-1.3); Total Protein 5.6 g/dL (6.3-8.2)
[2021-04-01 05:56] LABS: Glucose,Whole Blood 108 mg/dL (75-99)
[2021-04-01] MEDS: PYRIDOXINE 50 MG TAB PO SCH ×2 (07:01→07:47)
[2021-04-01] MEDS: lisinopriL 10 MG TAB PO SCH (07:46)
[2021-04-01] MEDS: PANTOPRAZOLE 40 MG TABLET PO SCH (07:46)
[2021-04-01] MEDS: amLODIPine 5 MG TAB PO SCH ×2 (07:46→22:21)
[2021-04-01] MEDS: NALTREXONE HCL 50 MG TAB PO SCH (07:46)
[2021-04-01] MEDS: FOLIC ACID 1 MG TAB PO SCH (07:46)
[2021-04-01] MEDS: MEGESTROL 400 MG/10 ML CUP PO SCH (07:47)
[2021-04-01] MEDS: NYSTATIN 100,000 UNIT/GM OINT 30 GM TUBE TOPICAL SCH ×3 (07:47→22:22)
[2021-04-01 09:12] LABS: Basophils # (A) 0.07 X 10*3/uL (0.00-0.10); Basophils % (A) 0.5 %; Eosinophils # (A) 0.14 X 10*3/uL (0.04-0.35); Eosinophils % (A) 0.9 %; HCT 28.5 % (39.6-50.0); HGB 8.9 g/dL (13.0-17.0); Lymphocytes # (A) 1.86 X 10*3/uL (0.90-5.00); Lymphocytes % (A) 12.4 %; MCH 31.2 pg (27.0-32.0); MCHC 31.2 g/dL (32.0-37.0); Mean Platelet Volume 10.5 fL (9.5-12.2); Monocytes # (A) 1.49 X 10*3/uL (0.20-1.00); Monocytes % (A) 9.9 %; Neutrophils # (A) 11.26 X 10*3/uL (1.80-7.70); Neutrophils % (A) 74.7 %; Platelet Count 508 X 10*3/uL (140-440); RBC 2.85 X 10*6/uL (4.40-5.60); RDW 15.8 % (11.5-14.5); WBC 15.06 X 10*3/uL (4.50-10.00)
[2021-04-01] MEDS: THIAMINE 100 MG in SODIUM CHLORIDE 0.9% 50 ML IVPB SCH ×2 (09:40→22:21)
[2021-04-01 11:32] LABS: Glucose,Whole Blood 106 mg/dL (75-99)
[2021-04-01] MEDS ORDERED: VANCOMYCIN 1,500 MG in SODIUM CHLORIDE 0.9% 250 ML IVPB SCH (14:00)
[2021-04-01] MEDS ORDERED: FLUCONAZOLE 100 MG TAB PO ONE (15:28)
--- NOTE | 2021-04-01 16:01 | P.PN ---
Subjective Progress Note Date: 04/01/21 Principal diagnosis: Metabolic encephalopathy Hospital course: Patient is a 55-year-old male with a past medical history of EtOH abuse. He presented to the hospital on 03/14/21 after being found delirious and confused by his neighbor at home. Patient was reportedly found laying on the floor covered in his own feces with empty alcohol bottles surrounding him. Patient presented to the hospital with multiple bruises and abrasions in different stages of hea ling. UDS positive for marijuana and benzodiazepines. EtOH level was less than 10. Patient was initially found to have hypernatremia with sodium of 152, hyponatremia with potassium of 3.2, hyperchloremia with chloride of 114 and elevated creatinine kinase of 999. He was admitted for acute metabolic encephalopathy with hallucinations and EtOH withdrawal, rhabdomyolysis, and sepsis without sepsis shock. Patient has underwent multiple labs and imaging see below. Currently admitted under our services with consultation to pulmonology, infectious disease, neurology, and orthopedic surgery. 04/01/2021: Patient seen and examined. He continues to remain encephalopathic he denies any complaints of chest pain shortness of breath no nausea no vomiting no fever or chills Objective - Vital Signs Vital signs: Vital Signs Temp 98.8 F 04/01/21 08:00 Pulse 109 H 04/01/21 08:00 Resp 18 04/01/21 08:00 BP 134/83 04/01/21 08:00 Pulse Ox 95 04/01/21 08:00 Intake & Output 03/31/21 04/01/21 04/01/21 18:59 06:59 18:59 Intake Total 671 815 7356 Output Total 500 Balance 0 820 1440 Intake: Intake, IV Titration 100 Amount Cefepime 2 gm In Sodium 100 Chloride 0.9% 100 ml @ 25 mls/hr IVPB Q8HR [facility] Rx# :[id number] Oral [id number] Output: Urine 500 Other: Voiding Method Diaper Diaper Diaper # Voids 4 # Bowel Movements 2 1 - Exam General: Nontoxic, no distress and appears stated age. Derm: Skin warm and dry, normal coloration for ethnicity. Head: Atraumatic, normocephalic Eyes: No lid lag, and anicteric sclera. Mouth: No lip lesions, mucus membranes moist Cardiovascular: Regular rhythm and rate, no murmur, Lungs: Respirations even, regular, and unlabored on room air. Lungs CTA bilaterally, no rhonchi, no rales, no wheezing, and no accessory muscle usage. GI/: soft, nontender to palpation, no guarding, no appreciable organomegaly. Rendon catheter in place. Ext: ROM intact. No gross muscle atrophy, no edema, no contractures. erythema and swelling to BLE worse on left. Swelling right knee. Neuro/Psych: Speech clear. Patient able to follow limited commands, partially oriented - Labs CBC & Chem 7: 04/01/21 05:04 04/01/21 05:04 Labs: Abnormal Lab Results - Last 24 Hours (Table) 03/31/21 04/01/21 04/01/21 Range/Units 16:40 01:01 05:04 WBC (4.50-10.00) X 10*3/uL RBC (4.40-5.60) X 10*6/uL Hgb (13.0-17.0) g/dL Hct (39.6-50.0) % MCV (80.0-97.0) fL MCHC (32.0-37.0) g/dL RDW (11.5-14.5) % Plt Count (140-440) X 10*3/uL Immature Gran # (0.00-0.04) X 10*3/uL Neutrophils # (1.80-7.70) X 10*3/uL Monocytes # (0.20-1.00) X 10*3/uL Chloride 111 H (98-107) mmol/L BUN 5 L (9-20) mg/dL Creatinine 0.37 L (0.66-1.25) mg/dL Glucose 133 H (74-99) mg/dL POC Glucose (mg/dL) 133 H 144 H (75-99) mg/dL Total Protein 5.6 L (6.3-8.2) g/dL Albumin 2.5 L (3.5-5.0) g/dL 04/01/21 04/01/21 04/01/21 Range/Units 05:04 05:53 11:30 WBC 15.06 H (4.50-10.00) X 10*3/uL RBC 2.85 L (4.40-5.60) X 10*6/uL Hgb 8.9 L (13.0-17.0) g/dL Hct 28.5 L (39.6-50.0) % MCV 100.0 H (80.0-97.0) fL MCHC 31.2 L (32.0-37.0) g/dL RDW 15.8 H (11.5-14.5) % Plt Count 508 H (140-440) X 10*3/uL Immature Gran # 0.24 H (0.00-0.04) X 10*3/uL Neutrophils # 11.26 H (1.80-7.70) X 10*3/uL Monocytes # 1.49 H (0.20-1.00) X 10*3/uL Chloride (98-107) mmol/L BUN (9-20) mg/dL Creatinine (0.66-1.25) mg/dL Glucose (74-99) mg/dL POC Glucose (mg/dL) 108 H 106 H (75-99) mg/dL Total Protein (6.3-8.2) g/dL Albumin (3.5-5.0) g/dL Assessment and Plan Assessment: Sepsis without septic shock Likely secondary to RLL Aspiration Pneumonia -Initial Pro-calcitonin 50.22 and CRP of 8.1, improving with repeat pro- calcitonin 10.40 and CRP 5.1. -Patient was treated with IV antibiotics vancomycin and cefepime which has now been discontinued by infectious disease -CSF fluid not consistent with bacterial meningitis. -HSV PCR negative -MRI of the lumbar spine with no evidence of discitis or prevertebral abscess -Thiamine 100 mg twice daily. -Stein does continue to have a leukocytosis. Patient did have a WBC scan which was negative. Infectious disease time following and will await further recommendations Hypomagnesemia -Replace as indicated Hypokalemia -Replace as indicated Alcohol abuse with alcohol withdrawal syndrome Delirium tremens Rhabdomyolysis Acute Metabolic Encephalopathy with hallucinations -Thiamine 100 mg twice daily -Seizure precautions, Fall precautions -Computed tomography scan of the head showed no acute findings. -MRI of the brain was no acute finding -Consulted neurology and psychiatry for further evaluation, input appreciated. -EEG was abnormal with generalized cerebral dysfunction and evidence of toxic metabolic encephalopathy -Treatment of underlying infectious process, continue IV antibiotics cefepime and vancomycin , ID input appreciated. Vitamin B6 Deficiency -Daily vitamin replacment. Poor living condition Recurrent episodes of hospital admission for alcohol abuse Major life stressors with possible major depression -Consult placed to psychiatry, input appreciated. -linotype worker consultation Hypernatremia, resolved Patient needs placement in a [facility] or ECF facility. A Stein is unsafe to return home by himself.
[2021-04-01 16:45] LABS: Glucose,Whole Blood 104 mg/dL (75-99)
--- NOTE | 2021-04-01 16:56 | P.PN ---
Subjective Progress Note Date: 04/01/21 04/01/2021: Patient is sleeping at this time. Per nurse report, patient was sitting in the chair most of the morning. He continues to be very confused. Now sleeping at this time. 03/30/2021: Patient's coworkers were present. They mentioned that patient is still confused. Patient is talking something about "sprains and drains". He does speak tangential. States it is June 1951 03/29/2021: Patient appears much better as compared to yesterday. Patient states that "you are the third doctor of the day". He is concerned that he is not getting exercises, not getting out of bed. 03/28/2021: Patient was seen for a follow-up. Patient complains of extreme muscle pain and fatigue. He tells me that he was attacked by a dog and he fell down on the ground. He got up and was again attacked by the dog and fell again. This happened a total of 3 times until he got in someone's garage. He states that this happened when there was a big snowstorm in August 2020. He also suffered from a torn meniscus between summer and fall of 2019 when he was using a snowblower and the handle snapped. He still could not tell me the exact reason that he came to the hospital. He continues to have pain in the legs, right much worse than left. Please refer to examination below. Right ankle appears swollen. He has peripheral edema. WORK-UP: * CPK is 999 on 03/14 but 217 on 03/16--improved. * B12 582 normal, however at MMA is elevated 0.46 (normal <0.40). This may indicate intracellular deficiency of B12. Patient's folate 5.7, TSH 1.77, RPR nonreactive. * Low Vitamin B6 3 (normal is 5-50). * Ammonia level 12 (normal) * ESR 64 on 03/19 and the repeated ESR 77 on 03/21/2021. * MRI of the brain on 03/18/21 revealed mild atrophy. Mild subependymal white matter increased signal around the lateral ventricles measuring up to 5 mm in thickness. No evidence of cortical infarct. * REPEAT MRI brain w/o (03/23/21): I ordered MRI the brain with and without but because the patient was in so much pain that was the study was limited and it was done only without. The MR the brain is reported as limited examination due to patient's pain. No obvious significant intracranial abnormality. * MRI of the lumbar spine with and without contrast 03/19/2021 revealed no evidence of discitis. No significant disc space narrowing. No fracture. Multilevel mild facet arthropathy and mild lateral recess stenosis. Multilevel mild posterior disc bulging without spinal stenosis. * CerebroSpinal fluid examination revealed glucose 64 (40-70), proteins 226 (12- 60), total WBC count in CSF 18, out of its 15% monocytes and 85% polynuclear's. CSF RBC 5175, due to traumatic tap. * Patient's spinal fluid was traumatic because patient was not cooperating. CSF showsCSF shows very mild leukocytosis ( about 2-3 cells above normal after correction for traumatic tap), and very elevated proteins. Cultures neg ative. HSV-1 and 2 PCR in the CSF are negative. Viral test are negative. Infectious disease following. * Patient had undergone aspiration of right knee and left ankle, both of which have been negative for any growth. No crystals seen in the sinonasal fluid. * Routine EEG on 03/17/21 was reported as abnormal due to background slowing of moderate to severe degree. This is suggestive of generalized cerebral dysfunction, as can be seen with toxic metabolic encephalopathy or due to diffuse structural brain abnormality. No epileptiform activity was seen. * Carotid Doppler was technically difficult due to patient's inability to hold still. No hemodynamically significant ICA stenosis identified on either side. Antegrade flow in both vertebral arteries. * CT of facial bone on 03/14/2021 is reported as there is evidence of old blow out fracture of the floor of the left bony orbits. No acute fracture seen. * Left Lower extremity CT 03/22/2021: is reported as chronic changes as noted. Soft tissue swelling. Calcaneal is spurring. * CT of the abdomen/pelvis: Was reported as fatty infiltration of the liver. Pleural effusion and basilar atelectasis. Elevated right diaphragm could relate to diaphragm paralysis. Subcutaneous edema around the abdomen. Congestive heart failure as possible. These abnormality. New compared to old exam. 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 No acute abnormality within the abdomen pelvis * CT of the chest is reported as small left apical density. Additional left lateral long-based thickening may be present. At the clinic today says an underlying mass should be considered. No evidence of pneumonia or aspiration pneumonia. Moderate fatty infiltration to the liver. * CT of the chest is reported as suboptimal study without CT chest of for acute pulmonary embolism. Lateral left upper lung groundglass opacity could reflect acute infection process. No significant change from one day earlier. Stable small bilateral pleural effusion noted. Objective - Vital Signs Vital signs: Vital Signs Temp 98.8 F 04/01/21 08:00 Pulse 109 H 04/01/21 08:00 Resp 18 04/01/21 08:00 BP 134/83 04/01/21 08:00 Pulse Ox 95 04/01/21 08:00 Intake & Output 03/31/21 04/01/21 04/01/21 18:59 06:59 18:59 Intake Total 500 820 960 Output Total 500 Balance 0 820 960 Intake: Intake, IV Titration 100 Amount Cefepime 2 gm In Sodium 100 Chloride 0.9% 100 ml @ 25 mls/hr IVPB Q8HR [facility] Rx# :[id number] Oral 500 720 960 Output: Urine 500 Other: Voiding Method Diaper Diaper Diaper # Voids 4 # Bowel Movements 2 1 - Exam Deferred, as patient is asleep - Labs CBC & Chem 7: 04/03/21 05:09 04/03/21 05:09 Labs: Abnormal Lab Results - Last 24 Hours (Table) 03/31/21 04/01/21 04/01/21 Range/Units 16:40 01:01 05:04 WBC (4.50-10.00) X 10*3/uL RBC (4.40-5.60) X 10*6/uL Hgb (13.0-17.0) g/dL Hct (39.6-50.0) % MCV (80.0-97.0) fL MCHC (32.0-37.0) g/dL RDW (11.5-14.5) % Plt Count (140-440) X 10*3/uL Immature Gran # (0.00-0.04) X 10*3/uL Neutrophils # (1.80-7.70) X 10*3/uL Monocytes # (0.20-1.00) X 10*3/uL Chloride 111 H (98-107) mmol/L BUN 5 L (9-20) mg/dL Creatinine 0.37 L (0.66-1.25) mg/dL Glucose 133 H (74-99) mg/dL POC Glucose (mg/dL) 133 H 144 H (75-99) mg/dL Total Protein 5.6 L (6.3-8.2) g/dL Albumin 2.5 L (3.5-5.0) g/dL 04/01/21 04/01/21 04/01/21 Range/Units 05:04 05:53 11:30 WBC 15.06 H (4.50-10.00) X 10*3/uL RBC 2.85 L (4.40-5.60) X 10*6/uL Hgb 8.9 L (13.0-17.0) g/dL Hct 28.5 L (39.6-50.0) % MCV 100.0 H (80.0-97.0) fL MCHC 31.2 L (32.0-37.0) g/dL RDW 15.8 H (11.5-14.5) % Plt Count 508 H (140-440) X 10*3/uL Immature Gran # 0.24 H (0.00-0.04) X 10*3/uL Neutrophils # 11.26 H (1.80-7.70) X 10*3/uL Monocytes # 1.49 H (0.20-1.00) X 10*3/uL Chloride (98-107) mmol/L BUN (9-20) mg/dL Creatinine (0.66-1.25) mg/dL Glucose (74-99) mg/dL POC Glucose (mg/dL) 108 H 106 H (75-99) mg/dL Total Protein (6.3-8.2) g/dL Albumin (3.5-5.0) g/dL Assessment and Plan Assessment: * 55-year-old male with history of alcoholism, was found at home laying with f ecal matter with multiple bruises, scratches and pressure sores over dependent areas, indicating patient has been on the floor for fairly long period of time. Last period of contact with his friends was on Sunday, 3 days prior to arrival. Patient has improved slightly as compared to yesterday. Still continues to be significantly delirious/encephalopathic. 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 * Fever of unknown etiology, still with low-grade fever of 100.3. * Vitamin B6 deficiency * Hypertension * Right leg pain, unclear etiology, possible radiculopathy, significantly improved. * History of alcoholism * History of multiple falls. * History of marijuana use. Plan: * Patient continues to be delirious, confused at times. Uncertain if patient has developed alcohol-related dementia. * Patient's muscle strength particularly in the legs has much improved, and not very tender and painful at this time. * Patient's T-max is 99.8 in the last 24 hours. * Patient underwent a repeat lumbar puncture, which is completely normal. WBC 0, RBC 0, glucose 61 and total proteins 44. * ESR is very high 103. Repeat ESR and CRP. If persistently high, would recommend rheumatology consultation. * Nuclear medicine Whole body WBC scan also failed to demonstrate a site of pyogenic infection. * Patient's previous CSF shows very mild leukocytosis (after correction for traumatic tap), however very highly elevated proteins. Cultures were negative. HSV-1 and 2 PCR in the CSF are negative. Cryptococcal antigen negative. Lyme titer negative. Infectious disease following. * West Nile virus serology negative. * ID has recommended to stop antibiotics and observe. Repeat ESR. If the ESR is high, would suggest rheumatology consultation. * EEG was abnormal due to background slowing of moderate to severe degree. This is suggestive of generalized cerebral dysfunction, as can be seen with toxic metabolic encephalopathy or due to diffuse structural brain abnormality. No epileptiform activity was seen. * Carotid Doppler was technically difficult due to patient's inability to hold still. No hemodynamically significant ICA stenosis identified on either side. Antegrade flow in both vertebral arteries. * B12 582 normal, however at MMA is elevated 0.46 (normal <0.40). This may indicate intracellular deficiency of B12. Patient's folate 5.7, TSH 1.77, RPR nonreactive. We will start folate and B12 replacement. B6 was low 3, currently on replacement. We will change to vitamin B6 50 mg daily. * Thiamine, folate. [facility] protocol. * Orthopedic consultation input appreciated. Patient had undergone left ankle and right knee joint aspiration. * MRI of the lumbar spine with and without contrast revealed no evidence of di scitis. No significant disc space narrowing. No fracture. Multilevel mild facet arthropathy and mild lateral recess stenosis. Multilevel mild posterior disc bulging without spinal stenosis. * MRI of the brain with and without contrast revealed mild atrophy. Mild subependymal white matter increased signal around the lateral ventricles measuring up to 5 mm in thickness. No evidence of cortical infarct. Repeat MRI of the brain without contrast showed no acute process. * PT OT, possible rehab. * Dr. Etienne will resume neurology service from the weekend and Dr. Malone from Sunday. Please call neurology if any concerns. Addendum 04/03/2021: Patient's ESR is even further elevated 106, CRP 4.3/0.8. KIRSTEN negative, dsDNA negative. Patient has persistently elevated white cell count. T-max is 99.0. Infectious disease following, checking for C. difficile. Consider checking 2-D echo, rule out vegetation. Elevated ESR is of unclear etiology. Dr. Osman Malone will resume neurology service from 04/04/2021. Please call Dr. Malone if there is any neurological concerns as well.
--- NOTE | 2021-04-01 17:13 | PN ---
PROGRESS NOTE DATE OF SERVICE: 04/01/2021 REASON FOR FOLLOWUP: Fever and leukocytosis. INTERVAL HISTORY: The patient did have a low-grade fever last night of 99.7. The patient is hemodynamically stable. He is breathing comfortably on room air. The patient remains pleasantly confused, unable to provide any history. No vomiting, diarrhea or other changes reported by the nursing staff. PHYSICAL EXAMINATION: Blood pressure 134/83, pulse of 109, temperature 98.8. He is 95% on room air. GENERAL DESCRIPTION: General description is a middle-aged male lying in bed in no distress. RESPIRATORY SYSTEM: Unlabored breathing. Decreased breath sounds at the bases. No wheeze. HEART: S1, S2. Regular rate and rhythm. ABDOMEN: Soft. No tenderness. EXTREMITIES: No edema of the feet. LABS: Hemoglobin is 8.9 with white count 15.06, BUN of 5, creatinine 0.35. DIAGNOSTIC IMPRESSION AND PLAN: 1. Patient with a fever, elevated white count in this patient who did have extensive workup without any obvious focus. He did have CTs, MRI, even a WBC scan without any focus. The patient has been ripping off his IV. Antibiotic will be discontinued and patient monitored closely off antibiotic therapy. 2. Elevated white count, possible oropharyngeal candidiasis. As the patient has been on multiple courses of antibiotic, will try Diflucan and see response. Monitor his clinical course closely. MMODL / IJN: [id number] /
[2021-04-02 01:36] LABS: Glucose,Whole Blood 89 mg/dL (75-99)
[2021-04-02 02:28] LABS: DNA Double-Stranded NEGATIVE (NEGATIVE)
[2021-04-02 06:44] LABS: Glucose,Whole Blood 107 mg/dL (75-99)
[2021-04-02] MEDS: amLODIPine 5 MG TAB PO SCH ×2 (09:19→21:08)
[2021-04-02] MEDS: FOLIC ACID 1 MG TAB PO SCH (09:19)
[2021-04-02] MEDS: PANTOPRAZOLE 40 MG TABLET PO SCH (09:20)
[2021-04-02] MEDS: FLUCONAZOLE 100 MG TAB PO SCH (09:20)
[2021-04-02] MEDS: lisinopriL 10 MG TAB PO SCH (09:20)
[2021-04-02] MEDS: HEPARIN SODIUM,PORCINE/PF 5,000 UNIT/0.5 ML SYRINGE SQ SCH ×3 (09:20→23:31)
[2021-04-02] MEDS: NYSTATIN 100,000 UNIT/GM OINT 30 GM TUBE TOPICAL SCH ×3 (09:20→21:09)
[2021-04-02] MEDS: THIAMINE 100 MG in SODIUM CHLORIDE 0.9% 50 ML IVPB SCH ×2 (09:20→21:14)
[2021-04-02] MEDS: MEGESTROL 400 MG/10 ML CUP PO SCH (09:20)
[2021-04-02] MEDS: NALTREXONE HCL 50 MG TAB PO SCH (09:20)
[2021-04-02 11:38] LABS: Basophils # (A) 0.06 X 10*3/uL (0.00-0.10); Basophils % (A) 0.4 %; Eosinophils # (A) 0.09 X 10*3/uL (0.04-0.35); Eosinophils % (A) 0.6 %; HCT 27.7 % (39.6-50.0); HGB 8.6 g/dL (13.0-17.0); Lymphocytes # (A) 1.69 X 10*3/uL (0.90-5.00); MCH 31.4 pg (27.0-32.0); MCV 101.1 fL (80.0-97.0); Mean Platelet Volume 9.6 fL (9.5-12.2); Monocytes # (A) 1.42 X 10*3/uL (0.20-1.00); Monocytes % (A) 10.1 %; Neutrophils # (A) 10.66 X 10*3/uL (1.80-7.70); Neutrophils % (A) 75.5 %; Platelet Count 494 X 10*3/uL (140-440); RBC 2.74 X 10*6/uL (4.40-5.60); RDW 15.9 % (11.5-14.5); WBC 14.12 X 10*3/uL (4.50-10.00)
[2021-04-02 12:12] LABS: African American GFR (CKD) 153.9 (60.0-200.0); Anion Gap 9.3 mmol/L (4.00-12.00); Calcium 8.4 mg/dL (8.7-10.3); Carbon Dioxide 25.7 mmol/L (21.6-31.8); Non-African American GFR(CKD) 132.8 (60.0-200.0); Potassium 3.8 mmol/L (3.5-5.5)
--- NOTE | 2021-04-02 14:56 | P.PN ---
Subjective Progress Note Date: 04/02/21 Principal diagnosis: Metabolic encephalopathy Hospital course: Patient is a 55-year-old male with a past medical history of EtOH abuse. He presented to the hospital on 03/14/21 after being found delirious and confused by his neighbor at home. Patient was reportedly found laying on the floor covered in his own feces with empty alcohol bottles surrounding him. Patient presented to the hospital with multiple bruises and abrasions in different stages of hea ling. UDS positive for marijuana and benzodiazepines. EtOH level was less than 10. Patient was initially found to have hypernatremia with sodium of 152, hyponatremia with potassium of 3.2, hyperchloremia with chloride of 114 and elevated creatinine kinase of 999. He was admitted for acute metabolic encephalopathy with hallucinations and EtOH withdrawal, rhabdomyolysis, and sepsis without sepsis shock. Patient has underwent multiple labs and imaging see below. Currently admitted under our services with consultation to pulmonology, infectious disease, neurology, and orthopedic surgery. 04/02/2021: Patient seen and examined. He continues to remain encephalopathic. He is not complaining of any chest pain shortness of breath cough. He does continue to have mild fevers Objective - Vital Signs Vital signs: Vital Signs Temp 97.8 F 04/02/21 08:00 Pulse 105 H 04/02/21 08:00 Resp 18 04/02/21 08:00 BP 124/73 04/02/21 08:00 Pulse Ox 93 L 04/02/21 08:00 Intake & Output 04/01/21 04/02/21 04/02/21 18:59 06:59 18:59 Intake Total 1440 Output Total 500 Balance 1440 -500 Intake: Oral 1440 Output: Urine 500 Other: Voiding Method Diaper Diaper Diaper # Voids 3 3 # Bowel Movements 1 - Exam General: Nontoxic, no distress and appears stated age. Derm: Skin warm and dry, normal coloration for ethnicity. Head: Atraumatic, normocephalic Eyes: No lid lag, and anicteric sclera. Mouth: No lip lesions, mucus membranes moist Cardiovascular: Regular rhythm and rate, no murmur, Lungs: Respirations even, regular, and unlabored on room air. Lungs CTA bilaterally, no rhonchi, no rales, no wheezing, and no accessory muscle usage. GI/: soft, nontender to palpation, no guarding, no appreciable organomegaly. Rendon catheter in place. Ext: ROM intact. No gross muscle atrophy, no edema, no contractures. erythema and swelling to BLE worse on left. Swelling right knee. Neuro/Psych: Speech clear. Patient able to follow limited commands, partially oriented - Labs CBC & Chem 7: 04/02/21 06:59 04/02/21 06:59 Labs: Abnormal Lab Results - Last 24 Hours (Table) 04/01/21 04/01/21 04/02/21 Range/Units 16:42 17:40 06:42 WBC (4.50-10.00) X 10*3/uL RBC (4.40-5.60) X 10*6/uL Hgb (13.0-17.0) g/dL Hct (39.6-50.0) % MCV (80.0-97.0) fL MCHC (32.0-37.0) g/dL RDW (11.5-14.5) % Plt Count (140-440) X 10*3/uL Immature Gran # (0.00-0.04) X 10*3/uL Neutrophils # (1.80-7.70) X 10*3/uL Monocytes # (0.20-1.00) X 10*3/uL BUN (9.0-27.0) mg/dL Creatinine (0.6-1.5) mg/dL POC Glucose (mg/dL) 104 H 107 H (75-99) mg/dL Calcium (8.7-10.3) mg/dL C-Reactive Protein 4.3 H (0.0-0.8) mg/dL Procalcitonin (0.02-0.09) ng/mL 04/02/21 04/02/21 04/02/21 Range/Units 06:59 06:59 06:59 WBC 14.12 H (4.50-10.00) X 10*3/uL RBC 2.74 L (4.40-5.60) X 10*6/uL Hgb 8.6 L (13.0-17.0) g/dL Hct 27.7 L (39.6-50.0) % MCV 101.1 H (80.0-97.0) fL MCHC 31.0 L (32.0-37.0) g/dL RDW 15.9 H (11.5-14.5) % Plt Count 494 H (140-440) X 10*3/uL Immature Gran # 0.20 H (0.00-0.04) X 10*3/uL Neutrophils # 10.66 H (1.80-7.70) X 10*3/uL Monocytes # 1.42 H (0.20-1.00) X 10*3/uL BUN 6.0 L (9.0-27.0) mg/dL Creatinine 0.4 L (0.6-1.5) mg/dL POC Glucose (mg/dL) (75-99) mg/dL Calcium 8.4 L (8.7-10.3) mg/dL C-Reactive Protein (0.0-0.8) mg/dL Procalcitonin 3.35 H (0.02-0.09) ng/mL Assessment and Plan Assessment: Sepsis without septic shock Likely secondary to RLL Aspiration Pneumonia -Initial Pro-calcitonin 50.22 and CRP of 8.1, improving with repeat pro- calcitonin 10.40 and CRP 5.1. -Patient was treated with IV antibiotics vancomycin and cefepime which has now been discontinued by infectious disease -CSF fluid not consistent with bacterial meningitis. -HSV PCR negative -MRI of the lumbar spine with no evidence of discitis or prevertebral abscess -Thiamine 100 mg twice daily. -Patient continues to have leukocytosis with pyrexia. Patient did have a WBC scan which was negative. Infectious disease time following and will await further recommendations Hypomagnesemia -Replace as indicated Hypokalemia -Replace as indicated Alcohol abuse with alcohol withdrawal syndrome Delirium tremens Rhabdomyolysis Acute Metabolic Encephalopathy with hallucinations -Thiamine 100 mg twice daily -Seizure precautions, Fall precautions -Computed tomography scan of the head showed no acute findings. -MRI of the brain was no acute finding -Consulted neurology and psychiatry for further evaluation, input appreciated. -EEG was abnormal with generalized cerebral dysfunction and evidence of toxic metabolic encephalopathy -Treatment of underlying infectious process, continue IV antibiotics cefepime and vancomycin , ID input appreciated. Vitamin B6 Deficiency -Daily vitamin replacment. Poor living condition Recurrent episodes of hospital admission for alcohol abuse Major life stressors with possible major depression -Consult placed to psychiatry, input appreciated. -[employer] worker consultation Hypernatremia, resolved
[2021-04-02 16:39] LABS: Glucose,Whole Blood 104 mg/dL (75-99)
[2021-04-03 00:28] LABS: Glucose,Whole Blood 118 mg/dL (75-99)
[2021-04-03 06:13] LABS: Glucose,Whole Blood 97 mg/dL (75-99)
[2021-04-03] MEDS: PANTOPRAZOLE 40 MG TABLET PO SCH (07:12)
[2021-04-03] MEDS: FLUCONAZOLE 100 MG TAB PO SCH (07:13)
[2021-04-03] MEDS: NALTREXONE HCL 50 MG TAB PO SCH (07:13)
[2021-04-03] MEDS: amLODIPine 5 MG TAB PO SCH ×2 (07:13→20:36)
[2021-04-03] MEDS: FOLIC ACID 1 MG TAB PO SCH (07:13)
[2021-04-03] MEDS: lisinopriL 10 MG TAB PO SCH (07:13)
[2021-04-03] MEDS: MEGESTROL 400 MG/10 ML CUP PO SCH (07:14)
[2021-04-03] MEDS: NYSTATIN 100,000 UNIT/GM OINT 30 GM TUBE TOPICAL SCH ×3 (07:14→20:35)
[2021-04-03] MEDS: HEPARIN SODIUM,PORCINE/PF 5,000 UNIT/0.5 ML SYRINGE SQ SCH ×3 (07:14→23:57)
[2021-04-03] MEDS: PYRIDOXINE 50 MG TAB PO SCH (07:14)
--- NOTE | 2021-04-03 07:15 | PN ---
PROGRESS NOTE DATE OF SERVICE: 04/02/2021 REASON FOR FOLLOWUP: Leukocytosis. INTERVAL HISTORY: Patient is afebrile. The patient remains to be slightly sleepy, lethargic unable to provide any history. No vomiting or any other changes reported by the nurse staff. PHYSICAL EXAMINATION: Blood pressure 122/66, pulse of 112, temperature 99, 95% on room air. General description is a middle-aged male lying in bed in no distress. Respiratory system: Unlabored breathing, decreased breath sounds in the base, with no wheeze. Heart S1, S2. Regular rate and rhythm. Abdomen soft, no tenderness. LABS: Hemoglobin 8.4, white count 14, BUN of 6, creatinine 0.4. DIAGNOSTIC IMPRESSION AND PLAN: Patient with a fever and did have extensive workup without any clear localizing focus of infection currently being taken off antibiotics. He is currently on with concern of possible oropharyngeal candidiasis. White count trending down. Continue supportive care. MMODL / IJN: [id number] /
[2021-04-03 09:13] LABS: Basophils # (A) 0.07 X 10*3/uL (0.00-0.10); Basophils % (A) 0.5 %; Eosinophils # (A) 0.09 X 10*3/uL (0.04-0.35); Eosinophils % (A) 0.6 %; HCT 28.3 % (39.6-50.0); Lymphocytes # (A) 2.46 X 10*3/uL (0.90-5.00); Lymphocytes % (A) 16.8 %; MCH 31.6 pg (27.0-32.0); MCHC 31.8 g/dL (32.0-37.0); MCV 99.3 fL (80.0-97.0); Mean Platelet Volume 9.6 fL (9.5-12.2); Monocytes # (A) 1.34 X 10*3/uL (0.20-1.00); Monocytes % (A) 9.2 %; Neutrophils # (A) 10.51 X 10*3/uL (1.80-7.70); Neutrophils % (A) 71.7 %; Platelet Count 554 X 10*3/uL (140-440); RBC 2.85 X 10*6/uL (4.40-5.60); RDW 15.5 % (11.5-14.5); WBC 14.64 X 10*3/uL (4.50-10.00)
[2021-04-03 09:39] LABS: African American GFR (CKD) 153.9 (60.0-200.0); Anion Gap 9.3 mmol/L (4.00-12.00); BUN/Creat Ratio 17.5 Ratio (12.00-20.00); Calcium 8.7 mg/dL (8.7-10.3); Carbon Dioxide 25.7 mmol/L (21.6-31.8); Non-African American GFR(CKD) 132.8 (60.0-200.0)
[2021-04-03] MEDS: THIAMINE 100 MG in SODIUM CHLORIDE 0.9% 50 ML IVPB SCH ×2 (11:30→20:36)
[2021-04-03 11:33] LABS: Glucose,Whole Blood 95 mg/dL (75-99)
[2021-04-03] MEDS ORDERED: VANCOMYCIN IV PER PHARMACY 1 EACH MISC MISCELLANE PRN (15:03)
--- NOTE | 2021-04-03 15:03 | P.PN ---
Subjective Progress Note Date: 04/03/21 Hospital course: Patient is a 55-year-old male with a past medical history of EtOH abuse. He presented to the hospital on 03/14/21 after being found delirious and confused by his neighbor at home. Patient was reportedly found laying on the floor covered in his own feces with empty alcohol bottles surrounding him. Patient presented to the hospital with multiple bruises and abrasions in different stages of healing. UDS positive for marijuana and benzodiazepines. EtOH level was less than 10. Patient was initially found to have hypernatremia with sodium of 152, hyponatremia with potassium of 3.2, hyperchloremia with chloride of 114 and elevated creatinine kinase of 999. He was admitted for acute metabolic encephalopathy with hallucinations and EtOH withdrawal, rhabdomyolysis, and sepsis without sepsis shock. Patient has underwent multiple labs and imaging see below. Currently admitted under our services with consultation to pulmonology, infectious disease, neurology, and orthopedic surgery. Subjective: Remains partially oriented. No chest pain no abdominal pain. poor Historian. Remains afebrile. No major overnight changes. Objective - Vital Signs Vital signs: Vital Signs Temp 98.5 F 04/03/21 07:57 Pulse 105 H 04/03/21 07:57 Resp 16 04/03/21 07:57 BP 108/70 04/03/21 07:57 Pulse Ox 93 L 04/03/21 07:57 Intake & Output 04/02/21 04/03/21 04/03/21 18:59 06:59 18:59 Intake Total 400 Output Total 240 Balance 400 -240 Intake: Oral 400 Output: Urine 240 Other: Voiding Method Diaper Diaper Diaper # Voids 4 # Bowel Movements 1 - Exam General: Nontoxic, no distress and appears stated age. Derm: Skin warm and dry, normal coloration for ethnicity. Head: Atraumatic, normocephalic Eyes: No lid lag, and anicteric sclera. Mouth: No lip lesions, mucus membranes moist Cardiovascular: Regular rhythm and rate, no murmur, Lungs: Respirations even, regular, and unlabored on room air. Lungs CTA bilaterally, no rhonchi, no rales, no wheezing, and no accessory muscle usage. GI/: soft, nontender to palpation, no guarding, no appreciable organomegaly. Rendno catheter in place. Ext: ROM intact. No gross muscle atrophy, no edema, no contractures. Neuro/Psych: Speech clear. Patient able to follow limited commands, partially oriented - Labs CBC & Chem 7: 04/03/21 05:09 04/03/21 05:09 Labs: Abnormal Lab Results - Last 24 Hours (Table) 04/01/21 04/02/21 04/03/21 Range/Units 17:40 16:37 00:16 WBC (4.50-10.00) X 10*3/uL RBC (4.40-5.60) X 10*6/uL Hgb (13.0-17.0) g/dL Hct (39.6-50.0) % MCV (80.0-97.0) fL MCHC (32.0-37.0) g/dL RDW (11.5-14.5) % Plt Count (140-440) X 10*3/uL Immature Gran # (0.00-0.04) X 10*3/uL Neutrophils # (1.80-7.70) X 10*3/uL Monocytes # (0.20-1.00) X 10*3/uL ESR 106 H (0-20) mm/Hr BUN (9.0-27.0) mg/dL Creatinine (0.6-1.5) mg/dL POC Glucose (mg/dL) 104 H 118 H (75-99) mg/dL 04/03/21 04/03/21 Range/Units 05:09 05:09 WBC 14.64 H (4.50-10.00) X 10*3/uL RBC 2.85 L (4.40-5.60) X 10*6/uL Hgb 9.0 L (13.0-17.0) g/dL Hct 28.3 L (39.6-50.0) % MCV 99.3 H (80.0-97.0) fL MCHC 31.8 L (32.0-37.0) g/dL RDW 15.5 H (11.5-14.5) % Plt Count 554 H (140-440) X 10*3/uL Immature Gran # 0.17 H (0.00-0.04) X 10*3/uL Neutrophils # 10.51 H (1.80-7.70) X 10*3/uL Monocytes # 1.34 H (0.20-1.00) X 10*3/uL ESR (0-20) mm/Hr BUN 7.0 L (9.0-27.0) mg/dL Creatinine 0.4 L (0.6-1.5) mg/dL POC Glucose (mg/dL) (75-99) mg/dL Assessment and Plan Plan: Sepsis without septic shock Likely secondary to RLL Aspiration Pneumonia -Initial Pro-calcitonin 50.22 and CRP of 8.1, improving with repeat pro- calcitonin 10.40 and CRP 5.1. -Was on IV antibiotics: Vancomycin and cefepime resume -CSF fluid not consistent with bacterial meningitis. -HSV PCR negative -MRI of the lumbar spine with no evidence of discitis or prevertebral abscess -Thiamine 100 mg twice daily. WBC fluctuates but remains afebrile. Hypomagnesemia -Replace as indicated Hypokalemia -Replace as indicated Alcohol abuse with alcohol withdrawal syndrome Delirium tremens Rhabdomyolysis Acute Metabolic Encephalopathy with hallucinations -Thiamine 100 mg twice daily -Seizure precautions, Fall precautions -Computed tomography scan of the head showed no acute findings. -MRI of the brain was no acute finding -Consulted neurology and psychiatry for further evaluation, input appreciated. -EEG was abnormal with generalized cerebral dysfunction and evidence of toxic metabolic encephalopathy -Treatment of underlying infectious process, continue IV antibiotics cefepime a nd vancomycin , ID input appreciated. Vitamin B6 Deficiency -Daily vitamin replacment. Poor living condition Recurrent episodes of hospital admission for alcohol abuse Major life stressors with possible major depression -Consult placed to psychiatry, input appreciated. -tree worker consultation Hypernatremia, resolved CODE STATUS: Full code DVT prophylaxis: SCDs Disposition: Pending rehab placement
[2021-04-03 16:21] LABS: Glucose,Whole Blood 104 mg/dL (75-99)
[2021-04-03] MEDS: VANCOMYCIN 1,500 MG in SODIUM CHLORIDE 0.9% 250 ML IVPB SCH ×2 (16:29→23:47)
--- NOTE | 2021-04-03 17:15 | PN ---
PROGRESS NOTE DATE OF SERVICE: 04/03/2021 REASON FOR FOLLOWUP: Leukocytosis. INTERVAL HISTORY: The patient is currently afebrile. The patient has been breathing comfortably. Hemodynamically stable. No vomiting has been reported by the nursing staff. Has had some diarrhea though. PHYSICAL EXAMINATION: Blood pressure is 116/69 with pulse of 118, temperature 98.4. He is 96% on room air. General description is a middle-aged male lying in bed in no distress. Respiratory system: Unlabored breathing, clear to auscultation. Heart S1, S2. Regular rate and rhythm. Abdomen soft. No tenderness. Extremities: No edema of the feet. LABS: Hemoglobin is , white count , BUN of 7, creatinine 0.4. DIAGNOSTIC IMPRESSION AND PLAN: 1. Patient with fever that has resolved in this patient who did have extensive workup. No obvious focus of infection. Currently being monitored closely off antibiotic therapy. 2. Elevated white count, possible will check a stool for C difficile and treat if positive. MMODL / IJN: [id number] /
[2021-04-03] MEDS: CEFEPIME 1 GM in SODIUM CHLORIDE 0.9% 50 ML IVPB SCH (20:36)
[2021-04-04 00:14] LABS: Glucose,Whole Blood 105 mg/dL (75-99)
[2021-04-04 06:33] LABS: Glucose,Whole Blood 100 mg/dL (75-99)
[2021-04-04] MEDS: THIAMINE 100 MG in SODIUM CHLORIDE 0.9% 50 ML IVPB SCH ×2 (08:22→21:07)
[2021-04-04] MEDS: VANCOMYCIN 1,500 MG in SODIUM CHLORIDE 0.9% 250 ML IVPB SCH ×2 (08:54→16:38)
[2021-04-04] MEDS: HEPARIN SODIUM,PORCINE/PF 5,000 UNIT/0.5 ML SYRINGE SQ SCH ×2 (08:55→16:38)
[2021-04-04] MEDS: PANTOPRAZOLE 40 MG TABLET PO SCH (08:58)
[2021-04-04] MEDS: FOLIC ACID 1 MG TAB PO SCH (08:58)
[2021-04-04] MEDS: amLODIPine 5 MG TAB PO SCH ×2 (08:58→21:07)
[2021-04-04] MEDS: NYSTATIN 100,000 UNIT/GM OINT 30 GM TUBE TOPICAL SCH ×3 (09:00→21:09)
[2021-04-04] MEDS: FLUCONAZOLE 100 MG TAB PO SCH (09:00)
[2021-04-04] MEDS: NALTREXONE HCL 50 MG TAB PO SCH (09:00)
[2021-04-04] MEDS: lisinopriL 10 MG TAB PO SCH (09:01)
[2021-04-04] MEDS: PYRIDOXINE 50 MG TAB PO SCH (09:06)
[2021-04-04] MEDS: MEGESTROL 400 MG/10 ML CUP PO SCH (09:06)
--- NOTE | 2021-04-04 10:26 | ECHOF ---
Referral Reason:persistent leucocytosis, high ESR, R/O vegetation MEASUREMENTS -------- HEIGHT: 182.9 cm WEIGHT: 68.5 kg BP: RVIDd: 2.7 cm (< 3.3) IVSd: 1.1 cm (0.6 - 1.1) LVIDd: 5.4 cm (3.9 - 5.3) LVPWd: 1.5 cm (0.6 - 1.1) IVSs: 1.4 cm LVIDs: 4.5 cm LVPWs: 1.6 cm LA Diam: 5.1 cm (2.7 - 3.8) Ao Diam: 3.3 cm (2.0 - 3.7) AV Cusp: 2.3 cm (1.5 - 2.6) LA Diam: 3.9 cm (2.7 - 3.8) MV EXCURSION: 22.213 mm (> 18.000) MV EF SLOPE: 91 mm/s (70 - 150) EPSS: 0.4 cm MV E Jaron: 0.58 m/s MV DecT: 250 ms MV A Jaron: 0.71 m/s MV E/A Ratio: 0.82 RAP: 5.00 mmHg RVSP: 20.81 mmHg FINDINGS -------- Sinus rhythm. This was a technically good study. The left ventricular size is normal. Left ventricular wall thickness is normal. Overall left vent ricular systolic function is mildly impaired with, an EF between 45 - 50 %. Distal Septal Hypokines is. The right ventricle is normal in size. The left atrium is moderately dilated. The right atrial size is normal. The aortic valve is trileaflet, and appears structurally normal. No aortic stenosis or regurgitation. The mitral valve leaflets are mildly thickened. Mild mitral regurgitation is present. Mild tricuspid regurgitation present. Right ventricular systolic pressure is normal at < 35 mmHg. The right ventricular systolic pressure, as measured by Doppler, is 20.81mmHg. There is no pulmonic regurgitation present. There is no pericardial effusion. CONCLUSIONS -------- 1. The left ventricular size is normal. 2. Left ventricular wall thickness is normal. 3. Overall left ventricular systolic function is mildly impaired with, an EF between 45 - 50 %. 4. Distal Septal Hypokinesis. 5. The right ventricle is normal in size. 6. The left atrium is moderately dilated. 7. The right atrial size is normal. 8. The aortic valve is trileaflet, and appears structurally normal. No aortic stenosis or regurgitati on. 9. The mitral valve leaflets are mildly thickened. 10. Mild mitral regurgitation is present. 11. Mild tricuspid regurgitation present. 12. The right ventricular systolic pressure, as measured by Doppler, is 20.81mmHg. 13. There is no pericardial effusion. HOLTER TECHNICIAN: Venice Medrano RDCS
[2021-04-04] MEDS: CEFEPIME 1 GM in SODIUM CHLORIDE 0.9% 50 ML IVPB SCH ×2 (11:03→21:07)
[2021-04-04 11:25] LABS: Basophils # (A) 0.08 X 10*3/uL (0.00-0.10); Basophils % (A) 0.7 %; Eosinophils # (A) 0.03 X 10*3/uL (0.04-0.35); Eosinophils % (A) 0.3 %; Lymphocytes # (A) 1.88 X 10*3/uL (0.90-5.00); MCH 31.5 pg (27.0-32.0); MCV 101.4 fL (80.0-97.0); Mean Platelet Volume 9.5 fL (9.5-12.2); Monocytes # (A) 1.22 X 10*3/uL (0.20-1.00); Monocytes % (A) 10.4 %; Neutrophils # (A) 8.42 X 10*3/uL (1.80-7.70); Neutrophils % (A) 71.4 %; Platelet Count 518 X 10*3/uL (140-440); RBC 2.86 X 10*6/uL (4.40-5.60); RDW 15.2 % (11.5-14.5); WBC 11.77 X 10*3/uL (4.50-10.00)
[2021-04-04 11:33] LABS: Glucose,Whole Blood 103 mg/dL (75-99)
[2021-04-04 12:45] LABS: African American GFR (CKD) 153.9 (60.0-200.0); Albumin/Globulin Ratio 1.15 (1.60-3.17); Calcium 8.5 mg/dL (8.7-10.3); Globulin 2.6 g/dL (1.6-3.3); Non-African American GFR(CKD) 132.8 (60.0-200.0); Potassium 4.4 mmol/L (3.5-5.5); Total Bilirubin 0.7 mg/dL (0.2-1.2); Total Protein 5.6 g/dL (6.2-8.2)
[2021-04-04 16:44] LABS: Glucose,Whole Blood 116 mg/dL (75-99)
--- NOTE | 2021-04-04 17:37 | PN ---
PROGRESS NOTE DATE OF SERVICE: 04/04/2021 REASON FOR FOLLOWUP: Leukocytosis, low-grade fever. INTERVAL HISTORY: The patient is afebrile. The patient remains pleasantly confused. He is breathing comfortably on room air. Denies any chest pain, shortness of breath or cough. No abdominal pain. Did have a soft bowel movement per the nurse's aide. PHYSICAL EXAMINATION: Blood pressure 172/69 with a pulse of 56, temperature 97.5. He is 96% on room air. GENERAL DESCRIPTION: General description is a middle-aged male lying in bed in no distress. RESPIRATORY SYSTEM: Unlabored breathing. Clear to auscultation anteriorly. HEART: S1, S2. Regular rate and rhythm. ABDOMEN: Soft. No tenderness. LABS: White count 11.77, BUN of 6, creatinine 0.4. DIAGNOSTIC IMPRESSION AND PLAN: 1. Patient with a fever in this patient who did have extensive workup with no clear focus. Fever subsequently has resolved. No need for any antibiotic therapy. 2. Elevated white count; possible oropharyngeal candidiasis. White count responded to continue for about a week. MMODL / IJN: [id number] /
--- NOTE | 2021-04-04 20:59 | P.PN ---
Subjective Progress Note Date: 04/04/21 (delayed charting seen at 0920) Patient is a 55-year-old male for history of alcohol abuse who initially presented on 03/14 after being found delirious and confused by his neighbor at home. He presented to the hospital with multiple bruises and abrasions. Urine drug screen was positive for marijuana and benzos. Alcohol level was less than 10. He was also found to be significantly dehydrated with a sodium of 152. He was admitted for alcohol withdrawal and rhabdo. He was started on IV fluids. He has had a prolonged hospital stay secondary to confusion and intermittent fevers. Patient seen and examined at bedside. He is alert and oriented to self and place. He has not alert and oriented to year. He denies any chest discomfort or shortness of breath. He again complains of ankle plain. 04/04-EF 45-50% with distal septal hypokinesis General: non toxic, no distress, appears at stated age Derm: warm, dry, erythema with blanching over the gluteal cleft area, multiple bruises and abrasions in upper and lower extremities in different stages of healing Head: atraumatic, normocephalic, symmetric Eyes: EOMI, no lid lag, anicteric sclera Mouth: no lip lesion, mucus membranes moist Cardiovascular: S1S2 reg, no murmur, positive posterior tibial pulse bilateral, Lungs: CTA bilateral, no rhonchi, no rales , no accessory muscle use Abdominal: soft, nontender to palpation, no guarding, no appreciable organomegaly Ext: no gross muscle atrophy, no edema, no contractures Neuro: CN II-XI grossly intact, no focal neuro deficits Psych: Alert, oriented to self and place, appropriate affect Pyrexia -ID recommendations appreciated: Continue on cefepime suspect aspiration pneumonia Elevated ESR - undetermined significance Candidiasis -Continue with Diflucan Severe protein calorie malnutrition with less then 50% oral intake - Continue to encourage oral intake -Patient not a candidate for PEG tube or NG tube secondary to intermittent confusion. Patient was likely remove this device and cause more harm to himself been good. -Stop Megace as it has been ineffective at increasing his oral intake -Trial of Marinol Hypertension -Continue with lisinopril, Norvasc Right lower lobe aspiration pneumonia Sepsis without septic shock Hypomagnesemia Hypokalemia Alcohol withdrawal/DTs Rhabdo Acute metabolic encephalopathy with hallucinations Vitamin B6 deficiency Thiamine deficiency Hypernatremia Objective - Vital Signs Vital signs: Vital Signs Temp 97.5 F L 04/04/21 14:00 Pulse 56 L 04/04/21 14:00 Resp 16 04/04/21 14:00 BP 170/69 04/04/21 14:00 Pulse Ox 96 04/04/21 14:00 Intake & Output 04/04/21 04/04/21 04/05/21 06:59 18:59 06:59 Intake Total 250 Balance 250 Weight 68.5 kg Intake: Oral 250 Other: Voiding Method Diaper # Voids 6 2 1 # Bowel Movements 1 1 1 - Labs CBC & Chem 7: 04/04/21 06:25 04/04/21 06:25 Labs: Abnormal Lab Results - Last 24 Hours (Table) 04/04/21 04/04/21 04/04/21 Range/Units 00:02 06:25 06:25 WBC 11.77 H (4.50-10.00) X 10*3/uL RBC 2.86 L (4.40-5.60) X 10*6/uL Hgb 9.0 L (13.0-17.0) g/dL Hct 29.0 L (39.6-50.0) % MCV 101.4 H (80.0-97.0) fL MCHC 31.0 L (32.0-37.0) g/dL RDW 15.2 H (11.5-14.5) % Plt Count 518 H (140-440) X 10*3/uL Immature Gran # 0.14 H (0.00-0.04) X 10*3/uL Neutrophils # 8.42 H (1.80-7.70) X 10*3/uL Monocytes # 1.22 H (0.20-1.00) X 10*3/uL Eosinophils # 0.03 L (0.04-0.35) X 10*3/uL BUN 6.0 L (9.0-27.0) mg/dL Creatinine 0.4 L (0.6-1.5) mg/dL POC Glucose (mg/dL) 105 H (75-99) mg/dL Calcium 8.5 L (8.7-10.3) mg/dL Creatine Kinase (55-170) U/L Total Protein 5.6 L (6.2-8.2) g/dL Albumin 3.00 L (3.80-4.90) g/dL Albumin/Globulin Ratio 1.15 L (1.60-3.17) g/dL 04/04/21 04/04/21 04/04/21 Range/Units 06:25 06:31 11:31 WBC (4.50-10.00) X 10*3/uL RBC (4.40-5.60) X 10*6/uL Hgb (13.0-17.0) g/dL Hct (39.6-50.0) % MCV (80.0-97.0) fL MCHC (32.0-37.0) g/dL RDW (11.5-14.5) % Plt Count (140-440) X 10*3/uL Immature Gran # (0.00-0.04) X 10*3/uL Neutrophils # (1.80-7.70) X 10*3/uL Monocytes # (0.20-1.00) X 10*3/uL Eosinophils # (0.04-0.35) X 10*3/uL BUN (9.0-27.0) mg/dL Creatinine (0.6-1.5) mg/dL POC Glucose (mg/dL) 100 H 103 H (75-99) mg/dL Calcium (8.7-10.3) mg/dL Creatine Kinase 37 L (55-170) U/L Total Protein (6.2-8.2) g/dL Albumin (3.80-4.90) g/dL Albumin/Globulin Ratio (1.60-3.17) g/dL 04/04/21 Range/Units 16:43 WBC (4.50-10.00) X 10*3/uL RBC (4.40-5.60) X 10*6/uL Hgb (13.0-17.0) g/dL Hct (39.6-50.0) % MCV (80.0-97.0) fL MCHC (32.0-37.0) g/dL RDW (11.5-14.5) % Plt Count (140-440) X 10*3/uL Immature Gran # (0.00-0.04) X 10*3/uL Neutrophils # (1.80-7.70) X 10*3/uL Monocytes # (0.20-1.00) X 10*3/uL Eosinophils # (0.04-0.35) X 10*3/uL BUN (9.0-27.0) mg/dL Creatinine (0.6-1.5) mg/dL POC Glucose (mg/dL) 116 H (75-99) mg/dL Calcium (8.7-10.3) mg/dL Creatine Kinase (55-170) U/L Total Protein (6.2-8.2) g/dL Albumin (3.80-4.90) g/dL Albumin/Globulin Ratio (1.60-3.17) g/dL
[2021-04-05 00:21] LABS: Glucose,Whole Blood 113 mg/dL (75-99)
[2021-04-05] MEDS: VANCOMYCIN 1,500 MG in SODIUM CHLORIDE 0.9% 250 ML IVPB SCH ×2 (01:32→08:43)
[2021-04-05] MEDS: HEPARIN SODIUM,PORCINE/PF 5,000 UNIT/0.5 ML SYRINGE SQ SCH ×3 (01:32→15:33)
[2021-04-05 06:21] LABS: Glucose,Whole Blood 111 mg/dL (75-99)
[2021-04-05] MEDS ORDERED: VANCOMYCIN TROUGH DUE 1 EACH MISC MISCELLANE ONE (06:30)
[2021-04-05 07:10] LABS: African American GFR (CKD) >90 (>60 ml/min/1.73 sqM); Non-African American GFR(CKD) >90 (>60 ml/min/1.73 sqM)
[2021-04-05] MEDS: MEGESTROL 400 MG/10 ML CUP PO SCH (08:50)
[2021-04-05] MEDS: FLUCONAZOLE 100 MG TAB PO SCH (08:51)
[2021-04-05] MEDS: PANTOPRAZOLE 40 MG TABLET PO SCH (08:51)
[2021-04-05] MEDS: FOLIC ACID 1 MG TAB PO SCH (08:51)
[2021-04-05] MEDS: NALTREXONE HCL 50 MG TAB PO SCH (08:51)
[2021-04-05] MEDS: lisinopriL 10 MG TAB PO SCH (08:51)
[2021-04-05] MEDS: NYSTATIN 100,000 UNIT/GM OINT 30 GM TUBE TOPICAL SCH ×3 (08:52→20:57)
[2021-04-05] MEDS: PYRIDOXINE 50 MG TAB PO SCH (08:52)
[2021-04-05] MEDS: amLODIPine 5 MG TAB PO SCH ×2 (08:52→20:56)
[2021-04-05] MEDS: THIAMINE 100 MG in SODIUM CHLORIDE 0.9% 50 ML IVPB SCH (08:52)
[2021-04-05 11:26] LABS: Glucose,Whole Blood 102 mg/dL (75-99)
--- NOTE | 2021-04-05 15:23 | P.PN ---
<Ivan Maharaj - Last Filed: 04/05/21 15:06> Subjective Progress Note Date: 04/05/21 Hospital course: Patient is a 55-year-old male with a past medical history of EtOH abuse. He p resented to the hospital on 03/14/21 after being found delirious and confused by his neighbor at home. Patient was reportedly found laying on the floor covered in his own feces with empty alcohol bottles surrounding him. Patient presented to the hospital with multiple bruises and abrasions in different stages of healing. UDS positive for marijuana and benzodiazepines. EtOH level was less than 10. Patient was initially found to have hypernatremia with sodium of 152, hypokalemia with potassium of 3.2, hyperchloremia with chloride of 114 and elevated creatinine kinase of 999. He was admitted for acute metabolic encephalopathy with hallucinations and EtOH withdrawal, rhabdomyolysis, and sep sis without sepsis shock. Patient has underwent multiple labs and imaging with prolonged hospital stay secondary to confusion and intermittent fevers, please see findings below. Currently admitted under our services with consultation to pulmonology, infectious disease, neurology, psychiatry and orthopedic surgery. Labs and imaging: Initial blood culture showing no results after 144 hours, CSF fluid negative wound culture right knee negatives wound culture left ankle preliminary results negative, 1 out of 2 blood culture results repeated on 03/19/21 positive for Staphylococcus epidermidis, possibly contaminated, and repeat blood culture drawn on 03/20/21 showing no growth after 24 hours. TSH 1.770. Pro-calcitonin 50.22 and CRP of 8.1. significant improvement with repeat pro- calcitonin 3.35 and repeat CRP 4.3. KIRSTEN negative Covid negative West Nile negative Lyme disease negative Chest x-ray completed 03/14/21 revealed minimal subsegmental atelectasis at the right lung base without change. CT head and cervical spine completed 03/14/21 negative for acute intercranial abnormality with spondylitic changes to cervical spine with no acute fractures or abnormalities. CT facial bones without contrast showing evidence of old blowout fracture on the floor of the left bony orbit with reported displacement of 4 mm and is negative for acute fractures. X-ray right elbow olecranon process spur formation with posterior soft tissue swelling negative for acute fractures. Bilateral carotid Dopplers negative for hemodynamically significant internal carotid artery stenosis. Venous Doppler left lower extremity negative for DVT. X-ray left ankle negative for acute fracture. MRI brain with and without contrast showing mild atrophy with mild subependymal white matter increased signal around the lateral ventricles measuring up to 5 mm in thickness no evidence of cortical infarct. MRI lumbar spine with and without contrast showing no evidence of discitis, no significant disc space narrowing or acute fractures. Multilevel mild facet arth roplasty and mild lateral recess stenosis with multilevel mild posterior disc bulging without spinal stenosis. CT left lower extremity showing chronic changes with soft tissue swelling and calcaneal spurring, negative for acute fracture. 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 Chest CTA negative for acute pulmonary embolism. Lateral left upper lung groundglass opacity possibly representing an acute infectious process with s table small bilateral pleural effusions. Physical exam: 04/05/21: Patient seen and evaluated at bedside this morningand had meeting at bedside with patient, his daughter, social work, and case management. patient remains alert to self and place only and confused to time and situation. patient has had significant improvement in his pro-calcitonin and CRP with pro- calcitonin down to 3.35 and CRP 4.3. Patient has been afebrile since 03/28/21. Antibiotics discontinued at this time, infectious disease in agreement. discussed discharge planning with patient's daughter. Patient's daughter verbalized understanding that this may be patient's mentation as he has shown minimal improvement in mental status. Patient daughter states she does not want her father to go to SNF, requesting patient be discharged home with her into her care. Patient's daughter in agreement that she and other family members will ensure patient receives 24 hour supervision and care. Case management setting up for discharge planning to ensure patient has needed supplies. Plan for discharge home tomorrow. General: Nontoxic, no distress and appears stated age. Derm: Skin warm and dry, normal coloration for ethnicity. Multiple bruises and abrasions covering upper and lower extremities in different stages of healing, significantly improved. Head: Atraumatic, normocephalic and symmetric. Eyes: No lid lag, and anicteric sclera. Slight swelling and bruising surrounding left orbital region, resolved. Mouth: No lip lesions, mucus membranes moist Cardiovascular: Regular rhythm and tachycardic rate, no murmur, positive posterior tibial pulses bilaterally, and cap refill < 2 seconds. Lungs: Respirations even, regular, and unlabored on room air. Lungs CTA bilaterally, no rhonchi, no rales, no wheezing, and no accessory muscle usage. GI/: soft, nontender to palpation, no guarding, no appreciable organomegaly. Rendon catheter in place. Ext: ROM intact. No gross muscle atrophy, no edema, no contractures. erythema and swelling to BLE worse on left. Swelling right knee. Neuro/Psych: Speech clear. Patient alert to person and place only today, confused to time and situation. Assessment and Plan of Care: Pyrexia, resolved Patient has remained afebrile since 03/30/21 Antibiotics discontinued. CRP and pro-calcitonin with significant improvement CRP down to 4.3 and pro- calcitonin down to 3.35. Infectious disease following and in agreement with plan. Elevated ESR - undetermined significance Candidiasis -Continue with Diflucan Severe protein calorie malnutrition with less then 50% oral intake -Continue to encourage oral intake -Patient not a candidate for PEG tube or NG tube secondary to intermittent confusion. Patient was likely remove this device and cause more harm to himself been good. -Stop Megace as it has been ineffective at increasing his oral intake -Trial of Marinol Hypertension -Continue with lisinopril, Norvasc Acute metabolic encephalopathy with hallucinations Sepsis without septic shock Right lower lobe aspiration pneumonia Pyrexia, resolved hypokalemia, resolved Hypomagnesemia, resolved Hypernatremia resolved Rhabdomyolysis Acute alcohol withdrawal with DTs Vitamin B6 deficiency Thiamine deficiency CODE STATUS: Full code DVT prophylaxis: SCDs Discussed with: Patient, RN, and pt's daughter/legal guardian Starla Owens at bedside meeting with social work and case management. Anticipated discharge date: plan for discharge home tomorrow morning. Anticipated discharge place: home with homecare in care of his daughter per her request. A total of 45 minutes was spent on the care of this complex patient more than 50% of the time was spent in counseling and care coordination. Objective - Vital Signs Vital signs: Vital Signs Temp 99.0 F 04/05/21 02:00 Pulse 114 H 04/05/21 02:00 Resp 18 04/05/21 02:00 BP 119/75 04/05/21 02:00 Pulse Ox 95 04/05/21 02:00 Intake & Output 04/04/21 04/05/21 04/05/21 18:59 06:59 18:59 Intake Total 250 830 Output Total 200 Balance 250 630 Weight 68.5 kg Intake: Intake, IV Titration 350 Amount Cefepime 1 gm In Sodium 100 Chloride 0.9% 50 ml @ 12. 5 mls/hr IVPB Q12HR [facility] Rx#:[id number] Vancomycin 1,500 mg In 250 Sodium Chloride 0.9% 250 ml @ 125 mls/hr IVPB Q8H [facility] Rx#:[id number] Oral 250 480 Output: Urine 200 Other: Voiding Method Diaper # Voids 2 3 1 # Bowel Movements 1 3 1 - Labs CBC & Chem 7: 04/04/21 06:25 04/05/21 06:12 Labs: Abnormal Lab Results - Last 24 Hours (Table) 04/04/21 04/04/21 04/04/21 Range/Units 06:25 06:25 06:25 WBC 11.77 H (4.50-10.00) X 10*3/uL RBC 2.86 L (4.40-5.60) X 10*6/uL Hgb 9.0 L (13.0-17.0) g/dL Hct 29.0 L (39.6-50.0) % MCV 101.4 H (80.0-97.0) fL MCHC 31.0 L (32.0-37.0) g/dL RDW 15.2 H (11.5-14.5) % Plt Count 518 H (140-440) X 10*3/uL Immature Gran # 0.14 H (0.00-0.04) X 10*3/uL Neutrophils # 8.42 H (1.80-7.70) X 10*3/uL Monocytes # 1.22 H (0.20-1.00) X 10*3/uL Eosinophils # 0.03 L (0.04-0.35) X 10*3/uL BUN 6.0 L (9.0-27.0) mg/dL Creatinine 0.4 L (0.6-1.5) mg/dL POC Glucose (mg/dL) (75-99) mg/dL Calcium 8.5 L (8.7-10.3) mg/dL Creatine Kinase 37 L (55-170) U/L Total Protein 5.6 L (6.2-8.2) g/dL Albumin 3.00 L (3.80-4.90) g/dL Albumin/Globulin Ratio 1.15 L (1.60-3.17) g/dL 04/04/21 04/04/21 04/05/21 Range/Units 11:31 16:43 00:20 WBC (4.50-10.00) X 10*3/uL RBC (4.40-5.60) X 10*6/uL Hgb (13.0-17.0) g/dL Hct (39.6-50.0) % MCV (80.0-97.0) fL MCHC (32.0-37.0) g/dL RDW (11.5-14.5) % Plt Count (140-440) X 10*3/uL Immature Gran # (0.00-0.04) X 10*3/uL Neutrophils # (1.80-7.70) X 10*3/uL Monocytes # (0.20-1.00) X 10*3/uL Eosinophils # (0.04-0.35) X 10*3/uL BUN (9.0-27.0) mg/dL Creatinine (0.6-1.5) mg/dL POC Glucose (mg/dL) 103 H 116 H 113 H (75-99) mg/dL Calcium (8.7-10.3) mg/dL Creatine Kinase (55-170) U/L Total Protein (6.2-8.2) g/dL Albumin (3.80-4.90) g/dL Albumin/Globulin Ratio (1.60-3.17) g/dL 04/05/21 04/05/21 Range/Units 06:12 06:20 WBC (4.50-10.00) X 10*3/uL RBC (4.40-5.60) X 10*6/uL Hgb (13.0-17.0) g/dL Hct (39.6-50.0) % MCV (80.0-97.0) fL MCHC (32.0-37.0) g/dL RDW (11.5-14.5) % Plt Count (140-440) X 10*3/uL Immature Gran # (0.00-0.04) X 10*3/uL Neutrophils # (1.80-7.70) X 10*3/uL Monocytes # (0.20-1.00) X 10*3/uL Eosinophils # (0.04-0.35) X 10*3/uL BUN (9.0-27.0) mg/dL Creatinine 0.46 L (0.6-1.5) mg/dL POC Glucose (mg/dL) 111 H (75-99) mg/dL Calcium (8.7-10.3) mg/dL Creatine Kinase (55-170) U/L Total Protein (6.2-8.2) g/dL Albumin (3.80-4.90) g/dL Albumin/Globulin Ratio (1.60-3.17) g/dL <Melva Cline A - Last Filed: 04/05/21 20:40> Objective - Vital Signs Vital signs: Vital Signs Temp 98.7 F 04/05/21 14:00 Pulse 106 H 04/05/21 14:00 Resp 16 04/05/21 14:00 BP 115/77 04/05/21 14:00 Pulse Ox 97 04/05/21 14:00 Intake & Output 04/05/21 04/05/21 04/06/21 06:59 18:59 06:59 Intake Total 830 480 Output Total 200 Balance 630 480 Intake: Intake, IV Titration 350 Amount Cefepime 1 gm In Sodium 100 Chloride 0.9% 50 ml @ 12. 5 mls/hr IVPB Q12HR [facility] Rx#:[id number] Vancomycin 1,500 mg In 250 Sodium Chloride 0.9% 250 ml @ 125 mls/hr IVPB Q8H [facility] Rx#:[id number] Oral 480 480 Output: Urine 200 Other: Voiding Method Diaper # Voids 3 2 # Bowel Movements 3 1 - Labs CBC & Chem 7: 04/04/21 06:25 04/05/21 06:12 Labs: Abnormal Lab Results - Last 24 Hours (Table) 04/05/21 04/05/21 04/05/21 Range/Units 00:20 06:12 06:20 Creatinine 0.46 L (0.66-1.25) mg/dL POC Glucose (mg/dL) 113 H 111 H (75-99) mg/dL 04/05/21 04/05/21 Range/Units 11:25 16:37 Creatinine (0.66-1.25) mg/dL POC Glucose (mg/dL) 102 H 113 H (75-99) mg/dL Assessment and Plan Assessment: Ivan Maharaj MEDICINE WORKER rendered care for this patient independently, reviewed the findings and plan as documented in the note above. I did not physically speak with or examine the patient on this date. Discharge home in AM D/W neurology and ID who are in agreement
[2021-04-05] MEDS ORDERED: methylPREDNISolone SOD SUCCI 125 MG/2 ML VIAL IV STA (15:56)
[2021-04-05 16:44] LABS: Glucose,Whole Blood 113 mg/dL (75-99)
--- NOTE | 2021-04-05 18:59 | PN ---
PROGRESS NOTE DATE OF SERVICE: 04/05/2021. REASON FOR FOLLOWUP: Fever and leukocytosis. INTERVAL HISTORY: Patient is afebrile. The patient is more awake and alert. He is breathing comfortably. Denies having any chest pain. No shortness of breath or cough. No abdominal pain. No diarrhea. PHYSICAL EXAMINATION: Blood pressure 115/76, pulse of 106, temperature 98.6. She is 97% on room air. General description is a middle-aged male lying in bed in no distress. Respiratory system: Unlabored breathing, clear to auscultation anteriorly. Heart S1, S2. Regular rate and rhythm. Abdomen soft, no tenderness. Extremities: No edema of the feet. LABS: No new labs have been obtained today. DIAGNOSTIC IMPRESSION AND PLAN: 1. Patient with fever in this patient who did have extensive workup with no clear focus of infection. The patient is currently being monitored closely off antibiotic therapy. 2. Elevated white count with concern for possible oropharyngeal candidiasis was on Diflucan and now has been started on steroids that can prompt white count to be elevated further. We will continue to monitor closely. Continue supportive care. MMODL / IJN: [id number] /
[2021-04-05] MEDS: THIAMINE 100 MG TAB PO SCH (20:56)
[2021-04-05] MEDS ORDERED: methylPREDNISolone SOD SUCCI 125 MG/2 ML VIAL IV ONE (21:00)
[2021-04-06 03:15] LABS: Glucose,Whole Blood 184 mg/dL (75-99)
[2021-04-06] MEDS: HEPARIN SODIUM,PORCINE/PF 5,000 UNIT/0.5 ML SYRINGE SQ SCH ×2 (06:48→08:00)
[2021-04-06 07:23] LABS: African American GFR (CKD) >90 (>60 ml/min/1.73 sqM); Non-African American GFR(CKD) >90 (>60 ml/min/1.73 sqM)
[2021-04-06 07:47] VITALS: BP 166/75; PULSE 96; RESP 16; TEMP 98.4
[2021-04-06] MEDS: MEGESTROL 400 MG/10 ML CUP PO SCH (08:00)
[2021-04-06] MEDS: PANTOPRAZOLE 40 MG TABLET PO SCH (08:01)
[2021-04-06] MEDS: amLODIPine 5 MG TAB PO SCH (08:01)
[2021-04-06] MEDS: FOLIC ACID 1 MG TAB PO SCH (08:01)
[2021-04-06] MEDS: lisinopriL 10 MG TAB PO SCH (08:01)
[2021-04-06] MEDS: THIAMINE 100 MG TAB PO SCH (08:01)
[2021-04-06] MEDS: NALTREXONE HCL 50 MG TAB PO SCH (08:01)
[2021-04-06] MEDS: PYRIDOXINE 50 MG TAB PO SCH (08:01)
[2021-04-06] MEDS: FLUCONAZOLE 100 MG TAB PO SCH (08:01)
[2021-04-06] MEDS: NYSTATIN 100,000 UNIT/GM OINT 30 GM TUBE TOPICAL SCH (08:02)
[2021-04-06 11:06] LABS: Glucose,Whole Blood 219 mg/dL (75-99)
--- NOTE | 2021-04-06 16:44 | P.DS ---
<Ivan Maharaj - Last Filed: 04/06/21 16:33> Providers Expected date of discharge: 04/06/21 Hospital Course: Discharge Diagnosis: Acute metabolic encephalopathy with hallucinations Sepsis without septic shock Right lower lobe aspiration pneumonia Pyrexia, resolved Hypokalemia, resolved Hypomagnesemia, resolved Hypernatremia resolved Rhabdomyolysis Acute alcohol withdrawal with DTs Vitamin B6 deficiency Thiamine deficiency Elevated ESR Oral Candidiasis Severe protein calorie malnutrition with less then 50% oral intake Hypertension Hospital Course: Patient is a 55-year-old male with a past medical history of EtOH abuse. He presented to the hospital on 03/14/21 after being found delirious and confused by his neighbor at home. Patient was reportedly found laying on the floor covered in his own feces with empty alcohol bottles surrounding him. Patient presented to the hospital with multiple bruises and abrasions in different stages of healing. UDS positive for marijuana and benzodiazepines. EtOH level was less than 10. Patient was initially found to have hypernatremia with sodium of 152, hypokalemia with potassium of 3.2, hyperchloremia with chloride of 114 and elevated creatinine kinase of 999. He was admitted for acute metabolic encephalopathy with hallucinations and EtOH withdrawal, rhabdomyolysis, and sepsis without sepsis shock. Patient had prolonged hospital stay secondary to persistent encephalopathy and intermittent fevers. He underwent multiple labs and imaging as listed below. He was admitted under our services with consultation to pulmonology, infectious disease, neurology, psychiatry and orthopedic surgery. Patient was found to have acute metabolic encephalopathy with hallucinations, sepsis without septic shock, right lower lobe aspiration pneumonia, intermittent fevers, hypokalemia, hypomagnesemia, hypernatremia, rhabdomyolysis, acute alcohol withdrawal with DTs, vitamin B6 deficiency, thiamine deficiency, elevated ESR, oral candidiasis, and severe protein calorie malnutrition. After multiple testing, imaging, and prolonged treatment patient's mentation and minimally improved. Patient is medically stable for discharge and recommendations were made to family for usp facility for continued care. Family declining placement in usp facility at this time. Patient's daughter requesting to take patient home. Patient's daughter was educated the patient will require 24-hour supervision and care and she reports her and her family will provide this. Patient being discharged home in care of his daughter, Starla Owens, along with [facility]. Patient to follow up outpatient with his PCP, fish bailer, and neurologist and appointments have been scheduled. Labs and imaging: Initial blood culture showing no results after 144 hours, CSF fluid negative wound culture right knee negatives wound culture left ankle preliminary results negative, 1 out of 2 blood culture results repeated on 03/19/21 positive for Staphylococcus epidermidis, possibly contaminated, and repeat blood culture drawn on 03/20/21 showing no growth after 24 hours. TSH 1.770. Pro-calcitonin 50.22 and CRP of 8.1. significant improvement with repeat pro- calcitonin 3.35 and repeat CRP 4.3. KIRSTEN negative Covid negative West Nile negative Lyme disease negative Chest x-ray completed 03/14/21 revealed minimal subsegmental atelectasis at the right lung base without change. CT head and cervical spine completed 03/14/21 negative for acute intercranial abnormality with spondylitic changes to cervical spine with no acute fractures or abnormalities. CT facial bones without contrast showing evidence of old blowout fracture on the floor of the left bony orbit with reported displacement of 4 mm and is negative for acute fractures. X-ray right elbow olecranon process spur formation with posterior soft tissue swelling negative for acute fractures. Bilateral carotid Dopplers negative for hemodynamically significant internal carotid artery stenosis. Venous Doppler left lower extremity negative for DVT. X-ray left ankle negative for acute fracture. MRI brain with and without contrast showing mild atrophy with mild subependymal white matter increased signal around the lateral ventricles measuring up to 5 mm in thickness no evidence of cortical infarct. MRI lumbar spine with and without contrast showing no evidence of discitis, no significant disc space narrowing or acute fractures. Multilevel mild facet arthroplasty and mild lateral recess stenosis with multilevel mild posterior disc bulging without spinal stenosis. CT left lower extremity showing chronic changes with soft tissue swelling and calcaneal spurring, negative for acute fracture. 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 Chest CTA negative for acute pulmonary embolism. Lateral left upper lung groundglass opacity possibly representing an acute infectious process with stable small bilateral pleural effusions. Physical exam: General: Nontoxic, no distress and appears stated age. Derm: Skin warm and dry, normal coloration for ethnicity. Multiple bruises and abrasions covering upper and lower extremities in different stages of healing, significantly improved. Head: Atraumatic, normocephalic and symmetric. Eyes: No lid lag, and anicteric sclera. Slight swelling and bruising surrounding left orbital region, resolved. Mouth: No lip lesions, mucus membranes moist Cardiovascular: Regular rhythm and tachycardic rate, no murmur, positive posterior tibial pulses bilaterally, and cap refill < 2 seconds. Lungs: Respirations even, regular, and unlabored on room air. Lungs CTA ulices aterally, no rhonchi, no rales, no wheezing, and no accessory muscle usage. GI/: soft, nontender to palpation, no guarding, no appreciable organomegaly. Rendon catheter in place. Ext: ROM intact. No gross muscle atrophy, no edema, no contractures. erythema and swelling to BLE worse on left. Swelling right knee. Neuro/Psych: Speech clear. Patient alert to person and place only today, confused to time and situation. A total of 45 minutes of time were spent preparing this complex discharge summary. Patient Condition at Discharge: Fair Plan - Discharge Summary Discharge Rx Participant: Yes New Discharge Prescriptions: New Fluconazole [Diflucan] 100 mg PO DAILY 10 Days #10 tab Folic Acid 1 mg PO DAILY 30 Days #30 tab Megestrol [Megace] 400 mg PO DAILY 30 Days #30 ml Nystatin 100,000 Unit/gm Oint [Mycostatin Oint] 1 applic TOPICAL TID 10 Days #1 cream Thiamine [Vitamin B-1] 100 mg PO TID 30 Days #30 tab Pyridoxine [Vitamin B-6] 50 mg PO DAILY 30 Days #30 tab Continue Naltrexone HCl [Revia] 50 mg PO DAILY Omeprazole 40 mg PO DAILY amLODIPine BESYLATE/BENAZEPRIL [amLODIPine BESYLATE/BENAZEPRIL 5-20 MG] 1 cap PO BID Discontinued traZODone HCL 50 mg PO HS PRN PRN Reason: Insomnia Gabapentin [Neurontin] 100 mg PO TID Promethazine HCl 12.5 mg PO DAILY PRN PRN Reason: Vomiting tiZANidine HCL 4 mg PO TID Vilazodone HCl [Viibryd] 40 mg PO DAILY Discharge Medication List Naltrexone HCl [Revia] 50 mg PO DAILY 02/05/19 [History] Omeprazole 40 mg PO DAILY 03/14/21 [History] amLODIPine BESYLATE/BENAZEPRIL [amLODIPine BESYLATE/BENAZEPRIL 5-20 MG] 1 cap PO BID 03/14/21 [History] Fluconazole [Diflucan] 100 mg PO DAILY 10 Days #10 tab 04/06/21 [Rx] Folic Acid 1 mg PO DAILY 30 Days #30 tab 04/06/21 [Rx] Megestrol [Megace] 400 mg PO DAILY 30 Days #30 ml 04/06/21 [Rx] Nystatin 100,000 Unit/gm Oint [Mycostatin Oint] 1 applic TOPICAL TID 10 Days #1 cream 04/06/21 [Rx] Pyridoxine [Vitamin B-6] 50 mg PO DAILY 30 Days #30 tab 04/06/21 [Rx] Thiamine [Vitamin B-1] 100 mg PO TID 30 Days #30 tab 04/06/21 [Rx] Follow up Appointment(s)/Referral(s): Harry Back MD [REFERRING] - 04/11/21 10:30 am Dexter Malone DO [Doctor of Osteopathic Medicine] - 04/26/21 2:45 pm (with Su) Kam Heck MD [Primary Care Provider] - 04/11/21 3:45 pm (Please call office if this appointment to reschedule) Patient Instructions/Handouts: Acute Delirium (DC), Encephalopathy (DC) Activity/Diet/Wound Care/Special Instructions: Activity: Requires 24 hour supervision and care. Diet: Encourage increased oral intake. Special Instructions: Mr. Noel is being discharged home into the care of his daughter and legal guardian, Starla Owens. He requires 24 hour care and supervision. Family has chosen to take Mr. Noel home to care for him and declined placement in [facility] at this time. [facility]: [phone] Discharge Disposition: HOME WITH HOME HEALTH SERVICES <Melva Cline - Last Filed: 04/06/21 21:17> Providers Date of admission: 03/14/21 18:12 Attending physician: Alexander Herrera MD Consults: 03/16/21 11:19 Consult Physician Routine Consulting Provider: Maranda Miller Consult Reason/Comments: Altered mental status, history of heavy alcohol abuse Do you want consulting provider notified?: Yes 03/16/21 18:44 Consult to Anesthesia Routine Consulting Provider: Anesthesia,Services Consult Reason/Comments: Lumbar puncture, rule out meningitis 03/17/21 08:16 Consult Physician Routine Consulting Provider: Karyn Miller Consult Reason/Comments: meningitis? Do you want consulting provider notified?: Yes 03/17/21 12:47 Consult Physician Routine Consulting Provider: Jennie Banegas Consult Reason/Comments: unable to protect airway? Do you want consulting provider notified?: Yes 03/19/21 11:09 Consult Physician Urgent Consulting Provider: Vinay Montemayor Consult Reason/Comments: Left ankle swelling and pain, rule out infection Do you want consulting provider notified?: Yes 03/25/21 15:37 Consult Physician Routine Consulting Provider: Freedom Wang Consult Reason/Comments: Psychiatric evaluation, pt with persistent visual & auditory hallucinations Do you want consulting provider notified?: Already Contacted 03/29/21 09:18 Consult to Anesthesia Routine Consulting Provider: Anesthesia,Services Consult Reason/Comments: Lumbar puncture, persistent infection, previous abnormal CSF, for follow-up Primary care physician: Kam Heck MD Hospital Course: Ivan Maharaj NP rendered care for this patient independently, reviewed the fi ndings and plan as documented in the note above. I did not physically speak with or examine the patient on this date. Patient has had a prolonged hospital stay. Seen the patient numerous times throughout his stay. Plan of care extensively discussed with nurse practitioner prior to discharge.
--- NOTE | 2021-04-06 16:51 | PN ---
PROGRESS NOTE DATE OF SERVICE: 04/06/2021 REASON FOR FOLLOWUP: 1. Fever. 2. Leukocytosis. INTERVAL HISTORY: The patient is currently afebrile. The patient is breathing comfortably. The patient denies having any chest pain or shortness of breath or cough. No vomiting, no abdominal pain or diarrhea. PHYSICAL EXAMINATION: Blood pressure 166/75, pulse of 96, temperature 98.4. He is 96% on room air. GENERAL DESCRIPTION: General description is a middle-aged male lying in bed in no distress. RESPIRATORY SYSTEM: Unlabored breathing. Clear to auscultation anteriorly. HEART: S1, S2. Regular rate and rhythm. ABDOMEN: Soft. No tenderness. LABS: Creatinine 0.62. No CBC was done today. DIAGNOSTIC IMPRESSION AND PLAN: 1. Patient with a fever in this patient who did have extensive workup without any clear focus. Patient is currently doing well off antibiotics. . 2. Elevated white count, possible oropharyngeal candidiasis. Continue with oral Diflucan for about a week. MMODL / IJN: [id number] /
--- NOTE | 2021-04-06 18:35 | P.PN ---
Subjective Progress Note Date: 04/05/21 I'm seeing the patient has a follow-up and he was last seen by Dr. Miller last week for neurological management. Please refer to Dr. Miller's note for further details. Per the patient's primary team it seems that patient's condition has been improving but he continues to be somewhat confused regarding not getting the year right. Objective - Vital Signs Vital signs: Vital Signs Temp 98.4 F 04/06/21 07:46 Pulse 96 04/06/21 07:46 Resp 16 04/06/21 08:00 BP 166/75 04/06/21 07:46 Pulse Ox 96 04/06/21 07:46 Intake & Output 04/05/21 04/06/21 04/06/21 18:59 06:59 18:59 Intake Total 480 300 Balance 480 300 Intake: Oral 480 300 Other: Voiding Method Diaper Toilet Toilet Diaper Diaper # Voids 2 2 # Bowel Movements 1 - Exam GENERAL: The patient is lying in bed and is moderate acute distress. INTEGUMENTARY: Multiple skin abrasion. MUSCULOSKELETAL: Pain with flexion of the right knee. Has bruises of both knee NEUROLOGICAL: Higher mental function: The patient is awake, alert, oriented to self and place. Regarding time he said it is 0 and month is June but on second try he said the year is 2020. Patient is able to name objects correctly (pen, watch and glasses). He seems to be responding much faster today compared to since I saw him last. Patient is following simple commands. No aphasia from limited language. No neglect. Cranial nerves: The pupils are round, equal and reactive to light. Visual licea are full to confrontation throughout. Extraocular movement is tracking to the right and left and no appreciable nystagmus. The facial strength is normal throughout. No dysarthria is noted. Motor: The strength is moving upper and lower extremities above gravity without focality Normal tone and bulk. Cerebellum: Normal finger to nose bilaterally Sensation: Sensation is normal to touch throughout. Plantars are mute bilaterally. WORK-UP: * CPK is 999 on 03/14 but 217 on 03/16--improved. * B12 582 normal, however at MMA is elevated 0.46 (normal <0.40). This may in dicate intracellular deficiency of B12. * Patient's folate 5.7, TSH 1.77, RPR nonreactive. * Low Vitamin B6 3 (normal is 5-50). * Ammonia level 12 (normal) * ESR 64 on 0 828 and the repeated ESR 77 on 03/21/2021. ESR is very high 103. ESR is even further elevated 106, CRP 4.3/0.8. KIRSTEN negative, dsDNA negative.RPR nonreactive. * HSV-1 and 2 PCR in the CSF are negative. * MRI of the brain on 03/18/21 revealed mild atrophy. Mild subependymal white matter increased signal around the lateral ventricles measuring up to 5 mm in thickness. No evidence of cortical infarct. * REPEAT MRI brain w/o (03/23/21): I ordered MRI the brain with and without but because the patient was in so much pain that was the study was limited and it was done only without. The MR the brain is reported as limited examination due to patient's pain. No obvious significant intracranial abnormality. * MRI of the lumbar spine with and without contrast 03/19/2021 revealed no evidence of discitis. No significant disc space narrowing. No fracture. Multilevel mild facet arthropathy and mild lateral recess stenosis. Multilevel mild posterior disc bulging without spinal stenosis. * CerebroSpinal fluid examination revealed glucose 64 (40-70), proteins 226 (12- 60), total WBC count in CSF 18, out of its 15% monocytes and 85% polynuclear's . CSF RBC 5175, due to traumatic tap. * Patient's spinal fluid was traumatic because patient was not cooperating. CSF showsCSF shows very mild leukocytosis ( about 2-3 cells above normal after correction for traumatic tap), and very elevated proteins. Cultures negative. HSV-1 and 2 PCR in the CSF are negative. Viral test are negative. Infectious disease following. * Patient underwent a repeat lumbar puncture, which is completely normal. WBC 0, RBC 0, glucose 61 and total proteins 44. * West Nile virus serology negative. * Patient had undergone aspiration of right knee and left ankle, both of which have been negative for any growth. No crystals seen in the sinonasal fluid. * Routine EEG on 03/17/21 was reported as abnormal due to background slowing of moderate to severe degree. This is suggestive of generalized cerebral dysfunction, as can be seen with toxic metabolic encephalopathy or due to diffuse structural brain abnormality. No epileptiform activity was seen. * Carotid Doppler was technically difficult due to patient's inability to hold still. No hemodynamically significant ICA stenosis identified on either side. Antegrade flow in both vertebral arteries. * CT of facial bone on 03/14/2021 is reported as there is evidence of old bone o ut fracture of the floor of the left bony orbits. No acute fracture seen. * Left Lower extremity CT 03/22/2021: is reported as chronic changes as noted. Soft tissue swelling. Calcaneal is spurring. * CT of the abdomen/pelvis: Was reported as fatty infiltration of the liver. Pleural effusion and basilar atelectasis. Elevated right diaphragm could relate to diaphragm paralysis. Subcutaneous edema around the abdomen. Congestive heart failure as possible. These abnormality. New compared to old exam. 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 No acute abnormality within the abdomen pelvis * CT of the chest is reported as small left apical density. Additional left lateral long-based thickening may be present. At the clinic today says an underlying mass should be considered. No evidence of pneumonia or aspiration pneumonia. Moderate fatty infiltration to the liver. * CT of the chest is reported as suboptimal study without CT chest of for acute pulmonary embolism. Lateral left upper lung groundglass opacity could reflect acute infection process. No significant change from one day earlier. Stable small bilateral pleural effusion noted. * Nuclear medicine Whole body WBC scan also failed to demonstrate a site of pyogenic infection. - Labs CBC & Chem 7: 04/04/21 06:25 04/06/21 06:01 Labs: Abnormal Lab Results - Last 24 Hours (Table) 04/06/21 04/06/21 04/06/21 Range/Units 03:13 06:01 11:04 Creatinine 0.62 L (0.66-1.25) mg/dL POC Glucose (mg/dL) 184 H 219 H (75-99) mg/dL Assessment and Plan Assessment: * 55-year-old male with history of alcoholism, was found at laying with fecal matter with multiple bruises, scratches and pressure sores over dependent areas, indicating patient has been on the floor for fairly long period of time. Last period of contact with his friends was on Sunday, 3 days prior to arrival. * Fevers of unknown etiology. MRI Brain is negative. No definitive evidence of meningitis/encephalitis based upon CSF results. CSF culture are negative. HSV PCR negative and viral are negative. * Encpehalopathy of unknown etiology. Rule out infectious process (unknown source yet). --mentation is improving but not back to baseline. * Low Vitamin B6 3 (normal is 5-50). * Multiple skin abrasions including left eye bruising * History of multiple falls * Hypertension * History of alcoholism * History of marijuana use. Plan: * Unclear to source of elevated ESR. Possible consider Rheumatology consultation. I would consider Neurology and possibly Neurosurgery follow-up as outpatient within 1-2 weeks for consideration of brain biospy if he continues to have symptoms. * B6 was low 3, currently on replacement. Continue vitamin B6 50 mg daily. * Continue folic acid 1mg daily and Vitamin B12 1000mcg daily. Continue thiamine. * Orthopedic consultation input appreciated. Patient had undergone left ankle and right knee joint aspiration. * Will defer antibiotic management to the I.D. team. * Pulmonary team is on board. * Will defer the rest of medical management to the primary team. The plan is discussed with the patient's primary team. Osman Malone MD Neuro-Hospitalist Time with Patient: Less than 30
== END 2021-04-06 16:10 | disposition home health service (06) | DRG 871 ==
LOC: EC 15:23 → EEVIPCON 18:12 → 3SCARD 18:12 → 2SICU 03-18 14:37 → 3SCARD 03-19 22:24 → 3NCARDOBS 03-21 23:52 → 3SCARD 03-21 23:52 → 4SSUR 03-26 19:23
PROVIDERS: ADMIT Internal Medicine; ATTEND Internal Medicine
PROC: 05HD33Z Insertion of Infusion Device into Right Cephalic Vein, Percutaneous Approach (ICD-10-PCS; 2021-03-18)
PROC: 009U3ZX Drainage of Spinal Canal, Percutaneous Approach, Diagnostic (ICD-10-PCS; principal; 2021-03-18 09:20)
PROC: 0S9G3ZZ Drainage of Left Ankle Joint, Percutaneous Approach (ICD-10-PCS; 2021-03-19)
PROC: 009U3ZX Drainage of Spinal Canal, Percutaneous Approach, Diagnostic (ICD-10-PCS; 2021-03-29)
DX: A41.9 Sepsis, unspecified organism (principal); E43 Unspecified severe protein-calorie malnutrition; G92 Toxic encephalopathy; J69.0 Pneumonitis due to inhalation of food and vomit; J96.01 Acute respiratory failure with hypoxia; G03.9 Meningitis, unspecified; S02.32XA Fracture of orbital floor, left side, initial encounter for closed fracture; A86 Unspecified viral encephalitis; B37.0 Candidal stomatitis; E51.9 Thiamine deficiency, unspecified; E87.0 Hyperosmolality and hypernatremia; J98.11 Atelectasis; L03.116 Cellulitis of left lower limb; M62.82 Rhabdomyolysis; M87.9 Osteonecrosis, unspecified; F10.231 Alcohol dependence with withdrawal delirium; B96.89 Other specified bacterial agents as the cause of diseases classified elsewhere; D50.9 Iron deficiency anemia, unspecified; D53.9 Nutritional anemia, unspecified; E11.9 Type 2 diabetes mellitus without complications; E83.42 Hypomagnesemia; E86.0 Dehydration; E53.1 Pyridoxine deficiency; E87.6 Hypokalemia; F41.1 Generalized anxiety disorder; E87.8 Other disorders of electrolyte and fluid balance, not elsewhere classified; I50.9 Heart failure, unspecified; I11.0 Hypertensive heart disease with heart failure; J98.6 Disorders of diaphragm; K21.9 Gastro-esophageal reflux disease without esophagitis; K76.0 Fatty (change of) liver, not elsewhere classified; M47.9 Spondylosis, unspecified; G93.89 Other specified disorders of brain; R29.6 Repeated falls; Z20.822 Contact with and (suspected) exposure to COVID-19; Z78.1 Physical restraint status; S05.12XA Contusion of eyeball and orbital tissues, left eye, initial encounter; S20.319A Abrasion of unspecified front wall of thorax, initial encounter; S80.211A Abrasion, right knee, initial encounter; S80.212A Abrasion, left knee, initial encounter; W01.0XXA Fall on same level from slipping, tripping and stumbling without subsequent striking against object, initial encounter; Y92.009 Unspecified place in unspecified non-institutional (private) residence as the place of occurrence of the external cause; Z79.899 Other long term (current) drug therapy; Z82.49 Family history of ischemic heart disease and other diseases of the circulatory system; Z83.3 Family history of diabetes mellitus; Z91.81 History of falling; Z80.7 Family history of other malignant neoplasms of lymphoid, hematopoietic and related tissues; Z88.2 Allergy status to sulfonamides; Z88.0 Allergy status to penicillin; M77.52 Other enthesopathy of left foot and ankle; R70.0 Elevated erythrocyte sedimentation rate
CPT/HCPCS: 36410; 36415; 36600; 70450; 70486; 70551; 70553; 71045; 71046; 71250; 71275; 72125; 72158; 74177; 76937; 78306; 80048; 80053; 80202; 80306; 80320; 81003; 82140; 82550; 82565; 82607; 82746; 82803; 82805; 82945; 83605; 83735; 83921; 84145; 84157; 84207; 84443; 84484; 85025; 85027; 85379; 85610; 85652; 85730; 86038; 86140; 86225; 86403; 86618; 86780; 86788; 86789; 87040; 87070; 87075; 87077; 87186; 87205; 87252; 87496; 87498; 87529; 87635; 87798; 88108; 89050; 89060; 93005; 93306; 93880; 94760; 95816; 96372; 99285

== ENCOUNTER 2024-03-20 11:34 | Emergency (ER) | payer OTHER ==
--- NOTE | 2024-03-20 11:47 | ED ---
Allergic Reaction HPI - General Chief complaint: Allergic Reaction Stated complaint: bee sting-allergic Time Seen by Provider: 03/20/24 11:43 Source: patient, RN notes reviewed Mode of arrival: ambulatory Limitations: no limitations - History of Present Illness Initial Comments: 58-year-old male presents emergency department chief complaint of bee sting. Patient states he got stung on his right leg. Patient states he has allergy to bee stings in which she had used epi in the past. He states he has mild right leg swelling, redness itching and some facial itching. Denies any difficulty breathing no difficulty swallowing states he does not have his EpiPen patient states this happened 45 minutes ago. - Related Data Home Medications Medication Instructions Recorded Confirmed Naltrexone HCl [Revia] 50 mg PO DAILY 02/05/19 03/14/21 Omeprazole 40 mg PO DAILY 03/14/21 03/14/21 amLODIPine BESYLATE/BENAZEPRIL 1 cap PO BID 03/14/21 03/14/21 [amLODIPine BESYLATE/BENAZEPRIL 5-20 MG] Previous Rx's Medication Instructions Recorded Fluconazole [Diflucan] 100 mg PO DAILY 10 Days #10 tab 04/06/21 Folic Acid 1 mg PO DAILY 30 Days #30 tab 04/06/21 Megestrol [Megace] 400 mg PO DAILY 30 Days #30 ml 04/06/21 Nystatin 100,000 Unit/gm Oint 1 applic TOPICAL TID 10 Days #1 04/06/21 [Mycostatin Oint] cream Pyridoxine [Vitamin B-6] 50 mg PO DAILY 30 Days #30 tab 04/06/21 Thiamine [Vitamin B-1] 100 mg PO TID 30 Days #30 tab 04/06/21 Allergies Allergy/AdvReac Type Severity Reaction Status Date / Time bee venom protein (honey bee) Allergy Anaphylaxis Verified 03/20/24 11:42 lactose Allergy Diarrhea Verified 03/20/24 11:42 Penicillins Allergy Unknown Verified 03/20/24 11:42 Sulfa (Sulfonamide Allergy Swelling Verified 03/20/24 11:42 Antibiotics) codeine AdvReac Nausea & Verified 03/20/24 11:42 Vomiting Review of Systems ROS Statement: Those systems with pertinent positive or pertinent negative responses have been documented in the HPI. ROS Other: All systems not noted in ROS Statement are negative. Past Medical History Past Medical History: GERD/Reflux, Hypertension, Liver Disease Additional Past Medical History / Comment(s): seasonal allergies History of Any Multi-Drug Resistant Organisms: None Reported Past Surgical History: Hernia Repair Additional Past Surgical History / Comment(s): umbilical hernia repair 2012 Past Anesthesia/Blood Transfusion Reactions: Postoperative Nausea & Vomiting (PONV) Past Psychological History: No Psychological Hx Reported Smoking Status: Never smoker Past Alcohol Use History: Heavy Past Drug Use History: Prescription Drug Abuse - Past Family History Mother Family Medical History: Cancer, Diabetes Mellitus, Hypertension Additional Family Medical History / Comment(s): nonHodgkins lymphoma Father Family Medical History: Hypertension General Exam Limitations: no limitations General appearance: alert, in no apparent distress Head exam: Present: atraumatic, normocephalic, normal inspection Eye exam: Present: normal appearance, PERRL, EOMI. Absent: scleral icterus, conjunctival injection, periorbital swelling ENT exam: Present: normal exam, normal oropharynx, mucous membranes moist Neck exam: Present: normal inspection, full ROM. Absent: tenderness, meningismus, lymphadenopathy Respiratory exam: Present: normal lung sounds bilaterally. Absent: respiratory distress, wheezes, rales, rhonchi, stridor Cardiovascular Exam: Present: normal rhythm, tachycardia, normal heart sounds. Absent: systolic murmur, diastolic murmur, rubs, gallop, clicks Skin exam: Present: warm, dry, intact, normal color, rash (Bee sting right calf) Course Vital Signs 03/20/24 03/20/24 03/20/24 11:40 12:07 12:29 Temperature 98.2 F Pulse Rate 118 H 108 H 82 Respiratory 22 18 Rate Blood Pressure 119/82 O2 Sat by Pulse 96 95 97 Oximetry Medical Decision Making - Medical Decision Making Was pt. sent in by a medical professional or institution (, PA, DENTAL APPLIANCE FIXER, urgent care, hospital, or [facility]...) When possible be specific @ -No Did you speak to anyone other than the patient for history (EMS, parent, family, police, friend...)? What history was obtained from this source @ -No Did you review nursing and triage notes (agree or disagree)? Why? @ -I reviewed and agree with nursing and triage notes Were old charts reviewed (outside hosp., previous admission, EMS record, old EKG, old radiological studies, urgent care reports/EKG's, [facility] records)? Report findings @ -No old charts were reviewed Differential Diagnosis (chest pain, altered mental status, abdominal pain women, abdominal pain men, vaginal bleeding, weakness, fever, dyspnea, syncope, headache, dizziness, GI bleed, back pain, seizure, CVA, palpatations, mental health, musculoskeletal)? @ -Bee sting, anaphylaxis, allergic reaction EKG interpreted by me (3pts min.). @ -None X-rays interpreted by me (1pt min.). @ -None done CT interpreted by me (1pt min.). @ -None done U/S interpreted by me (1pt. min.). @ -None done What testing was considered but not performed or refused? (CT, X-rays, U/S, labs)? Why? @ -None What meds were considered but not given or refused? Why? @ -None Did you discuss the management of the patient with other professionals (professionals i.e. , PA, DENTAL APPLIANCE FIXER, lab, RT, psych nurse, sr. social media & mobile manager, entertainment lawyer, teacher, control systems drafting officer, behavioral health case manager)? Give summary @ -No Was smoking cessation discussed for >3mins.? @ -No Was critical care preformed (if so, how long)? @ -No Were there social determinants of health that impacted care today? How? (Homelessness, low income, unemployed, alcoholism, drug addiction, transportation, low edu. Level, literacy, decrease access to med. care, intermediate, rehab)? @ -No Was there de-escalation of care discussed even if they declined (Discuss DNR or withdrawal of care, Hospice)? DNR status @ -No What co-morbidities impacted this encounter? (DM, HTN, Smoking, COPD, CAD, Cancer, CVA, ARF, Chemo, Hep., AIDS, mental health diagnosis, sleep apnea, morbid obesity)? @ -None Was patient admitted / discharged? Hospital course, mention meds given and route, prescriptions, significant lab abnormalities, going to OR and other pertinent info. @ -Discharge patient presented after bee sting with a history of allergic react ion. Patient received Solu-Medrol Benadryl and Pepcid symptoms have resolved he has no difficulty breathing no localized reaction patient is discharged in stable condition Undiagnosed new problem with uncertain prognosis? @ -No Drug Therapy requiring intensive monitoring for toxicity (Heparin, Nitro, Insulin, Cardizem)? @ -No Were any procedures done? @ -No Diagnosis/symptom? @ -Bee sting, allergic reaction Acute, or Chronic, or Acute on Chronic? @ -Acute Uncomplicated (without systemic symptoms) or Complicated (systemic symptoms)? @ -Uncomplicated Side effects of treatment? @ -No Exacerbation, Progression, or Severe Exacerbation? @ -No Poses a threat to life or bodily function? How? (Chest pain, [place], [place], pneumonia, PE, COPD, DKA, ARF, appy, cholecystitis, CVA, Diverticulitis, Homicidal, Suicidal, threat to staff... and all critical care pts) @ -No Disposition Clinical Impression: Allergic reaction to insect sting Disposition: HOME SELF-CARE Condition: Stable Instructions (If sedation given, give patient instructions): General Allergic Reaction (ED) Additional Instructions: Please return to the Emergency Department if symptoms worsen or any other concerns. Is patient prescribed a controlled substance at d/c from ED?: No Referrals: Paco Freed MD [Primary Care Provider] - 1-2 days Time of Disposition: 13:17
[2024-03-20] MEDS: SODIUM CHLORIDE 0.9% 500 ML 500 ML IV ONE (12:01)
[2024-03-20] MEDS: diphenhydrAMINE 50 MG/ML 1 ML VIAL IVP STA (12:06)
[2024-03-20] MEDS: FAMOTIDINE 20 MG/2 ML VIAL IV STA (12:06)
[2024-03-20] MEDS: methylPREDNISolone SOD SUCCI 125 MG/2 ML VIAL IV STA (12:06)
[2024-03-20 12:30] VITALS: RESP 18
[2024-03-20 14:09] VITALS: BP 132/88; PULSE 94; TEMP 97.9
== END 2024-03-20 16:46 | disposition home or self-care (01) ==
LOC: EC 11:34
CPT/HCPCS: 99283